=== PATIENT | male | born 1965 | race Caucasian/White ===

== ENCOUNTER 2016-10-01 18:41 | Inpatient (IN) | payer BC ==
[~2016-10-01] VITALS: Ht 182.9 cm; Wt 87.1 kg
[2016-10-01] MEDS ORDERED: MULTIVIT INFUSN,ADULT 4,VIT K 10 ML, FOLIC ACID 1 MG, THIAMINE 100 MG in IV DEXTROSE 5 ... IV ONE (19:30)
[2016-10-01] MEDS ORDERED: ACETAMINOPHEN 325 MG TABLET. PO PRN (19:45)
[2016-10-01] MEDS ORDERED: IV NORMAL SALINE 1000ML BAG 1,000 ML IV ONE (19:45)
[2016-10-01] MEDS ORDERED: ONDANSETRON PF 4 MG/2 ML VIAL. IV PRN (19:45)
[2016-10-01] MEDS ORDERED: ONDANSETRON PF 4 MG/2 ML VIAL. IV ONE (20:00)
--- NOTE | 2016-10-01 20:36 | RAD ---
Indication: Seizure with jaw dislocation. Axial imaging through the brain and facial bones was performed without contrast. Sagittal and coronal reformations were also performed. One or more of the following individualized dose reduction techniques were utilized for this examination: 1. Automated exposure control 2. Adjustment of the mA and/or kV according to patient size 3. Use of iterative reconstruction technique CT brain: The ventricles and sulci are prominent for the patient's age suggestive of cerebral atrophy. No sulcal effacement, midline shift or hemorrhage is detected. Cisterns are patent. IMPRESSION: Cerebral atrophy. No acute intracranial process is detected. CT maxillofacial: There are bilateral temporomandibular joint dislocations. The mandibular condyles are dislocated anteriorly in relation to the TMJ along the anterior surface of the bony eminence. No mandibular fracture is seen. The zygomatic arches are intact. The maxillary sinus marquez, nasal bones and orbital marquez appear intact. Paranasal sinuses are clear. IMPRESSION: Bilateral temporomandibular joint dislocations, as described. Electronically signed by: Chevy Longoria MD (10/01/2016 8:33 PM) [facility]
[2016-10-01 21:07] LABS: POTASSIUM ISTAT 3.8 mmol/L (3.5-5.0)
[2016-10-01 21:14] LABS: CALCIUM 9.4 mg/dL (8.5-10.1); CREATININE 1.2 mg/dL (0.7-1.3); GFR 63.3; POTASSIUM 3.4 mmol/L (3.5-5.1)
[2016-10-01 21:15] LABS: BASO # 0.1 x10^3/uL (0.0-0.2); BASO % 1 % (0-3); EOS % 0 % (0-3); HEMATOCRIT 48.3 % (39.0-53.0); HEMOGLOBIN 15.7 g/dL (13.0-17.5); LYMPH # 0.2 x10^3/uL (1.0-4.8); LYMPH % 2 % (24-48); MEAN CORPUSCULAR HEMOGLOBIN 32 pg (25-35); MEAN CORPUSCULAR HGB CONC 33 g/dL (31-37); MEAN CORPUSCULAR VOLUME 99 fL (79-100); MONO % 5 % (0-9); NEUT % 93 % (31-73); PLATELET COUNT 162 x10^3/uL (140-400); RED BLOOD COUNT 4.88 x10^6/uL (4.30-5.70); RED CELL DISTRIBUTION WIDTH 14.8 % (11.5-14.5); WHITE BLOOD COUNT 13.5 x10^3/uL (4.0-11.0)
[2016-10-01 21:20] LABS: ALBUMIN 4.2 g/dL (3.4-5.0); ALBUMIN/GLOBULIN RATIO 1.1 (1.0-1.7); MAGNESIUM 1.7 mg/dL (1.8-2.4); TOTAL BILIRUBIN 1.1 mg/dL (0.2-1.0); TOTAL PROTEIN 8.1 g/dL (6.4-8.2)
[2016-10-01] MEDS ORDERED: MIDAZOLAM HCL/PF 5 MG/5 ML VIAL. IV ONE ×3 (21:45→23:00)
[2016-10-01] MEDS ORDERED: KETAMINE HCL 500 MG/10 ML VIAL. IV ONE (21:45)
[2016-10-01 21:54] LABS: PLT ESTIMATE ADEQUATE (ADEQUATE)
--- NOTE | 2016-10-01 23:17 | PHYS DOC ---
Past Medical History Past Medical History: Other Additional Past Medical Histor: EPILEPSY Past Surgical History: Other Additional Past Surgical Histo: RIGHT ANKLE Alcohol Use: Heavy Drug Use: None Adult General Chief Complaint Chief Complaint: SEIZURE HPI HPI Patient is a 51 year old gentleman who presents to the ER today after having having had 2 seizures at home that were almost [id number]. Patient denies any history of hypertension diabetes liver longer kidney problems. Patient does report that he was told his liver is a visible swollen from much alcohol he drinks. Patient reports that he's had a history of seizures in the past. They usually occur when he stops drinking and sometimes occurs while he is actually drinking. Patient denies any tobacco use. Patient denies any drug use. Patient reports that he is a heavy alcohol user in general using hard alcohol. Patient reports that he's been trying to cut back his alcohol over the last 24 hours or so he's cut back to just a couple cans of beer. Patient thinks it's when he started having a seizure today. Patient's seizure was witnessed by his and children report that he had tonic-clonic activity and shortly after his first seizure he had a second seizure but they're not sure exactly how long it lasted for. Patient denies any fevers shakes chills. Patient has a chest pain or shortness of breath. Patient has any abdominal pain. Patient denies any head trauma. Patient reports that he's had some discomfort in his jaw and is having a hard time talking secondary to it. Patient denies any history of a dislocated shoulder past. Patient reports she has no primary care physician. Patient's last admission for alcohol withdrawal with a probably one month ago. Patient had multiple episodes of emesis. Patient denies any diarrhea. Review of systems: Constitutional: Denies fever or chills Eyes: Denies change in visual acuity, redness, or eye pain HENT: Denies nasal congestion or sore throat All other review systems are negative except as documented in the history of present illness portion. Physical exam: Constitutional: Well developed, well nourished, diaphoretic, anxious, HENT: Normocephalic, atraumatic, bilateral external ears normal, oropharynx moist, no oral exudates, nose normal. Patient positioned with his jaw pulled forward and unable to occlude his mouth. Patient's jaw does not align per the patient. Eyes: PERRLA, EOMI, conjunctiva normal, no discharge. Neck: Normal range of motion, no tenderness, supple, no stridor Cardiovascular: Tachycardic at a heart rate of 1:30 to 150. Lungs & Thorax: Bilateral breath sounds clear to auscultation Abdomen: Bowel sounds normal, soft, no tenderness, no masses, Skin: Warm to touch, diaphoretic Back: No tenderness, no CVA tenderness. Extremities: No tenderness, no cyanosis, no clubbing, ROM intact, no edema. Neurologic: Alert and oriented X 3, normal motor function, normal sensory function, no focal deficits noted. Patient has a resting tremor. Patient has circumferential motion his tongue. Psychologic: Affect normal, judgement normal, mood normal. Patient's alert awake and oriented 3. Appropriate comments, appropriate transfer thought, Patient's ER hospital course is significant for CT scan of the head which was unremarkable without any acute pathology. Maxillofacial CT scan revealing dislocation of his temporal mandibular joint. No other facial trauma/fractures noted on the CT scan. Patient's labs are all within normal limits. Patient's initial hemoglobin was reported at 6.9 however the remainder the patient's labs were not consistent with life so everything was repeated patient's repeat labs were all within normal limits. Cross had initially been ordered but this can BE canceled. 1. Alcohol withdrawal : Patient has had alcohol withdrawal seizures 3 today in the ED and at home. Patient had been given a couple doses of Ativan and Versed in the ED with significant improvement in his symptoms. Patient has been started on the ciwa protocol to assist him with his withdrawal type symptoms. Patient is remained tachycardic, diaphoretic. Patient will be admitted to the ICU for closer monitoring and aggressive treatment of his withdrawal symptoms. 2. Seizures was likely secondary to alcohol withdrawal. Patient's clinically and hemodynamically stable at this time except for his tachycardia, tachypnea, tremors. Patient is being treated aggressively with benzos. Patient's head CT scan revealed no acute pathology. 3. Abnormal labs . Be likely secondary to lab error. Patient's repeat labs were within normal limits. 4. Temporomandibular jaw dislocation Utilizing conscious sedation/procedural sedation the patient was given ketamine and Versed to assist with sedation to help reduce his jaw. Patient initially been given approximate 1.5 mg/kg of ketamine and 2.5 mg of Versed with minimal response. Patient was given a second dose of ketamine 1.5 mg and a second dose of 2.5 of Versed. After the second dose patient started having significant amount of ocular nystagmus and appears to have visual hallucinations that he was responding to. Patient became extremely agitated and restrained. Once patient was more sedate multiple tests were made at reducing his jaw dislocation. After a large on the patient's self reduced his own jaw. I have currently put a Kerlix resting around the patient's head and jaw to help remind him to keep his mouth closed for the next several hours. Patient is stable and is still able to open his mouth slightly in case he should have further episodes of emesis and a for airway compromise of be an issue airway still easily obtainable. Critical-care time of 35 minutes were utilizing a treatment and management of the patient's care. This included time treating his seizures, and alcohol withdrawal. This time was exclusive of any procedures. I have discussed with the patient to allow him to no toilet other healthcare providers noted that he had an adverse reaction to ketamine. & Review of Systems Review of Systems \ Current Medications Current Medications Current Medications Medications (Trade) Dose Ordered Sig/Jacqueline Start Time Stop Time Status Last Admin Dose Admin Lorazepam (Ativan) 1 mg 1X ONCE 10/01/16 19:30 10/01/16 19:31 DC 10/01/16 19:24 1 MG Multivitamins 10 ml/Folic Acid 1 mg/Thiamine HCl 100 mg/Dextrose/ Sodium Chloride 1,011.2 ml @ 1,000 mls/ hr 1X ONCE 10/01/16 19:30 10/01/16 20:30 DC 10/01/16 19:08 1,000 MLS/HR Allergies Allergies Allergies Coded Allergies Type Severity Reaction Last Updated Verified No Known Drug Allergies 07/08/16 No Current Patient Data Vital Signs Vital Signs Date Time Temp Pulse Resp B/P (MAP) Pulse Ox O2 Delivery O2 Flow Rate FiO2 10/01/16 18:49 141 24 165/104 (124) 88 Nasal Cannula 4.0 EKG EKG [] Radiology/Procedures Radiology/Procedures [] Impressions: Procedure note: Utilizing procedural sedation with ketamine and Versed the patient was sedated and jaw dislocation was reduced. Course & Med Decision Making Course & Med Decision Making Pertinent Labs and Imaging studies reviewed. (See chart for details) [] Dragon Disclaimer Dragon Disclaimer This electronic medical record was generated, in whole or in part, using a voice recognition dictation system. Departure Departure Impression: Primary Impression: Alcohol related seizure Additional Impressions: Alcohol withdrawal Temporomandibular joint dislocation Vomiting Disposition: 09 ADMITTED INPATIENT Admitting Physician: Maria L Govea Condition: GUARDED Referrals: JARED MONTEMAYOR MD (PCP) Scripts No Active Prescriptions or Reported Meds Problem Qualifiers CHRISTIAN LINDER MD Oct 01, 2016 23:17
[2016-10-01 23:30] VITALS: BP 139/83
[2016-10-01 23:45] VITALS: BP 139/95
[2016-10-02] VITALS (13 sets, daily range): BP systolic 138–177; BP diastolic 76–108
--- NOTE | 2016-10-02 01:24 | ACF ---
Admission Forms Criteria ALCOHOL AND PSYCHOACTIVE SUBSTANCE WITHDRAWAL Clinical Indications for Inpatient Care (Place ' X' for any and all applicable criteria): Ongoing inpatient care may be indicated for substance withdrawal[B][C] with ANY ONE of the following(1)(2)(3)(4)(21): [ ]I. Delirium due to alcohol or sedative[D] withdrawal is present. [ X]II. Marked signs of withdrawal are present as indicated by ANY ONE of the following(15)(22)(23) [X ]a) Heart rate greater than 120 beats per minute is present. [ ]b) Severe vomiting is present (eg, precludes maintenance of oral hydration). [ ]c) Grossly visible tremor is present. [ ]d) Profuse perspiration is present. [ ]e) Temperature greater than 101 degrees F (38.3 degrees C) is present. [ ]f) Other signs of severe withdrawal are present (eg, Altered mental status ) [ ]g) Severe withdrawal identified by standardized assessment score[A] [ ]III. Signs of withdrawal that require continued inpatient treatment as indicated by ANY ONE of the following(15)(22)(23): [ ]a) Inadequate response to pharmacotherapy (eg, benzodiazepines) [ ]b) Outpatient or lower level of care is not feasible or appropriate (eg, unavailable or inappropriate to patient condition or treatment history). [ ]IV. Withdrawal signs with high-risk indicator are present as manifested by ALL of the following[A](15)(22)(23) [ ]a) Signs of withdrawal are present as indicated by ANY ONE of the following: [ ]i. Tachycardia is present. [ ]ii. Nausea or vomiting is present. [ ]iii. Tremor is present. [ ]iv. Increased perspiration is present. [ ]v. Other signs of withdrawal are present. [ ]vi. Withdrawal identified by standardized assessment score [A] [ ]b) Elevated risk due to historical or comorbid factor is present as indicated by ANY ONE of the following: [ ]i. History of delirium due to withdrawal is present. [ ]ii. History of seizures due to withdrawal is present.[E] [ ]iii. Intrinsic seizure disorder (epilepsy) is present. [ ]iv. Patient is . [ ]v. Other significant medical history (eg, severe cardiac disease) is present, which is assessed to be at risk for destabilization due to withdrawal. [ ]V. Serious electrolyte abnormalities (eg, hyponatremia, hypokalemia, hypophosphatemia) requiring correction performable only in inpatient setting(6)(25) [ ]. Severe hypoglycemia requiring glucose infusions performable only in inpatient setting(6) [ ]VII. Drug toxicity or instability, such as Altered mental status, respiratory depression, or arrhythmias, that requires inpatient care [ ]VIII. Danger judged unmanageable at lower level of care because of ANY ONE of the following [ ]a) Danger to self [ ]b) Danger to others [ ]c) Grave disability (eg, inability to perform self-care necessary at lower level of care) The original [facility] Care Guidelines content created by [employer] [facility] has been revised. The portions of the content which have been revised are identified through the use of italic text or in bold. [facility] Guidelines has neither reviewed nor approved the modified material. All other unmodified content is copyright [facility] Care Guidelines. Please see references footnoted in the original [facility] CareGuidelines edition 2016 Admission Criteria Met?: Yes MINISTERIO FARRAR Oct 02, 2016 01:24
[2016-10-02] MEDS ORDERED: METOPROLOL TARTRATE 5 MG/5 ML VIAL. IVP PRN (02:00)
--- NOTE | 2016-10-02 06:12 | EKG ---
[facility] [address] [place] [address] Test Date: 2016-10-01 Test Time: 18:48:11 Pat Name: PASQUALE ORELLANA Department: Room: 109 1 Gender: M [employer]: : 1965 Requested By: EMILY HOUSTON Order Number: [id number] Reading MD: Measurements Intervals [place] Rate: 147 P: -137 RI: 74 QRS: -12 QRSD: 92 T: 41 QT: 302 QTc: 479 Interpretive Statements SUPRAVENTRICULAR TACHYCARDIA LEFTWARD AXIS QRS(T) CONTOUR ABNORMALITY CONSIDER ANTEROLATERAL MYOCARDIAL DAMAGE CONSIDER INFERIOR MYOCARDIAL DAMAGE RI6.01 Unconfirmed report No previous ECG available for comparison
--- NOTE | 2016-10-02 08:04 | RAD ---
Indication seizure. Suspect aspiration. A single view of the chest was obtained and is compared to an examination 08/11/2009. The heart, pulmonary vessels and mediastinum appear normal. The lungs are clear. There is no pleural fluid or pneumothorax and the visualized bony structures appear grossly intact. The stomach is somewhat distended with gas. IMPRESSION: No acute or focal process is seen in the chest
[2016-10-02 11:56] LABS: PROTHROMBIN TIME PATIENT 12.7 SEC (11.7-14.0)
--- NOTE | 2016-10-02 11:56 | HP ---
ADMIT DATE: 10/01/2016 CHIEF COMPLAINT: Seizure. HISTORY OF PRESENT ILLNESS: The patient is a pleasant 51-year-old male who drinks a liter of vodka a day. He once again had two more seizures. He has seizures in the past as well. We suspect this is probably related to his alcohol, but we are not sure ____ the patient is going to the ICU. We are consulting Dr. Marks. PAST MEDICAL HISTORY: Previous epileptic seizures and alcohol issues. ALLERGIES: None. FAMILY HISTORY: Alcoholism. SOCIAL HISTORY: He worked at the [employer] office, but apparently has lost his job now because he showed up drunk. He has got 3 DUIs according to his daughter, he is . He has 2 daughters. The states he drinks a few beers in the evening as well. It sounds like the marriage is a little bit on the rocks, not aware if the patient is taking any other drugs or smoking. MEDICATIONS: Reviewed, please refer to the MRAD. REVIEW OF SYSTEMS: GENERAL: No history of weight change, weakness or fevers. SKIN: No bruising, hair changes or rashes. EYES: No blurred, double or loss of vision. NOSE AND THROAT: No history of nosebleeds, hoarseness or sore throat. HEART: No history of palpitations, chest pain or shortness of breath on exertion. LUNGS: Denies cough, hemoptysis, wheezing or shortness of breath. GASTROINTESTINAL: Denies changes in appetite, nausea, vomiting, diarrhea or constipation. GENITOURINARY: No history of frequency, urgency, hesitancy or nocturia. NEUROLOGIC: Complains of shaking. PSYCHIATRIC: Complains of anxiety. ENDOCRINE: No history of heat or cold intolerance, polyuria or polydipsia. EXTREMITIES: Denies muscle weakness, joint pain, pain on walking or stiffness. PHYSICAL EXAMINATION: VITAL SIGNS: Temperature afebrile, pulse 105, respirations 22, blood pressure 140/96, and O2 sat 93% on 3 liters. GENERAL: He is alert, cooperative, appears to want a drink and wants to get out of here, but we are trying to encourage him to stop drinking. We are going to give him some p.r.n. benzos and vitamins. He agrees to stay for now. HEART: Distant S1, S2, tachycardic. LUNGS: Clear. ABDOMEN: Soft. EXTREMITIES: No edema. ENDOCRINE: No thyromegaly. LYMPHATICS: No cervical nodes. HEMATOPOIETIC: No bruising. LABORATORY DATA: White count 13, hemoglobin 15, and platelets 162. Electrolytes: Sodium is 141, potassium is 3.4, chloride 106, bicarbonate 20, BUN 7, creatinine is 1.2, glucose 286, AST is high at 107, ALT 81, albumin normal; surprisingly normal at 4.2. Alcohol level is less than 10. ASSESSMENT AND PLAN: Probable alcohol withdrawal seizures. The patient has been admitted to the ICU were doing seizure precautions; consult with Dr. Marks. We put him on alcohol withdrawal protocol and check an INR to see how his liver is functioning. PROGNOSIS: Guarded, we did offer the patient inpatient alcohol treatment, but he refuses. EMILY HOUSTON DO DR: KATE/carmela JOB#: [id number] / [id number]
--- NOTE | 2016-10-02 12:19 | PDOC2 ---
NEUROLOGY CONSULT Date of Admission Date of Admission DATE: 10/02/16 TIME: 12:06 Reason for Consult Reason for Consult: Alcohol related seizures Referring Physician Referring Physician: Dr. Govea Source Source: Caregiver, Chart review, Patient History of Present Illness History of Present Illness The patient is a 51-year-old right-handed male who presented with 3 alcohol related seizures today. He presented 2 months ago for the same problem and I saw him them. MRI of the brain was negative. I advised the patient to abstain from alcohol but he continues to drink at least a pint of vodka a day. He had 3 alcohol-related seizures yesterday and it was decided to admit him and consult neurology yet again. The patient is interested in stopping drinking. He plans to contact his employee assistance program today. His and daughters are with him. 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, no tobacco Current Medications Current Medications Current Medications Lorazepam (Ativan) 1 mg 1X ONCE IV Last administered on 10/01/16 19:24; Start 10/01/16 at 19:30; Stop 10/01/16 at 19:31; Status DC Multivitamins 10 ml/Folic Acid 1 mg/Thiamine HCl 100 mg/Dextrose/ Sodium Chloride 1,011.2 ml @ 1,000 mls/ hr 1X ONCE IV Last administered on 19:08; Start 10/01/16 at 19:30; Stop 10/01/16 at 20:30; Status DC Lorazepam (Ativan) 2 mg 1X ONCE IV ; Start 10/01/16 at 20:00; Stop 10/01/16 at 20:00; Status DC Ondansetron HCl (Zofran) 4 mg PRN Q8HRS PRN IV NAUSEA/VOMITING Last administered on 10/01/16 22:46; Start 10/01/16 at 19:45; Stop 10/02/16 at 19:44 Acetaminophen (Tylenol) 650 mg PRN Q4HRS PRN PO FEVER; Start 10/01/16 at 19:45 ; Stop 10/02/16 at 19:44 Lorazepam (Ativan) 1 mg PRN Q2HR PRN IV ANXIETY / AGITATION; Start 10/01/16 at 19:45; Stop 10/01/16 at 19:45; Status DC Sodium Chloride 1,000 ml @ 125 mls/hr 1X ONCE IV Last administered on 23:20; Start 10/01/16 at 19:45; Stop 10/02/16 at 03:44; Status DC Multivitamins 10 ml/Thiamine HCl 100 mg/Folic Acid 1 mg/Sodium Chloride 1,011.2 ml @ 100 mls/ hr Q24H IV ; Start 10/02/16 at 18:00 Lorazepam (Ativan) 2 mg PRN Q1HR PRN IV For CIWA 8-14; Start 10/01/16 at 19:45 Lorazepam (Ativan) 4 mg PRN Q1HR PRN IV For CIWA 15 or greater; Start 10/01/16 at 19:45 Ondansetron HCl (Zofran) 4 mg 1X ONCE IV Last administered on 10/01/16 19:58 ; Start 10/01/16 at 20:00; Stop 10/01/16 at 20:01; Status DC Ketamine HCl 500 mg 1X ONCE IV Last administered on 10/01/16 22:10; Start 12/08 at 21:45; Stop 10/01/16 at 21:46; Status DC Midazolam HCl (Versed) 5 mg 1X ONCE IV Last administered on 10/01/16 22:10; Start 10/01/16 at 21:45; Stop 10/01/16 at 21:46; Status DC Midazolam HCl (Versed) 5 mg 1X ONCE IV Last administered on 10/01/16 22:52; Start 10/01/16 at 23:00; Stop 10/01/16 at 23:01; Status DC Midazolam HCl (Versed) 2.5 mg 1X ONCE IV Last administered on 10/01/16 22:52 ; Start 10/01/16 at 23:00; Stop 10/01/16 at 23:01; Status DC Metoprolol Tartrate (Lopressor) 5 mg PRN Q4HRS PRN IVP NAUSEA; Start 10/02/16 at 02:00 Active Scripts Active No Active Prescriptions or Reported Medications Allergies Allergies: Coded Allergies: No Known Drug Allergies (Unverified , 07/08/16) ROS Review of System Patient denies fevers, chills, weight loss, dyspnea, angina, abdominal pain, change in bowels, or dysuria. 14 point review of systems is negative. Physical Exam Physical Examination PHYSICAL EXAMINATION: Vital signs: see above. General appearance is normal and in no acute distress. HEENT: Normocephalic and nontraumatic. Eyes, nose, ears, and throat are unremarkable. Neck is supple. No lymphadenopathy. No bruits are heard over the carotid artery. No crepitus. NEUROLOGICAL EXAMINATION: Mental Status Examination: Alert. Oriented to time, place, and person. Answers questions and follows commends. Pupils are equal round and reactive to light and accommodation. Funduscopic exam: No papilledema. Extraocular movements are intact. Visual field exam shows no defect on the direct confrontation. No motor or sensory deficits on the facial exam. Uvula in the midline and the soft palate elevated symmetrically. No deviation of the tongue to any direction. Gross hearing is normal. Shoulder shrug normal. Muscle tone is normal. Muscle strength is 5. Deep tendon reflexes are 2+ all around. Plantar reflex is with flexion response bilaterally. Urywdy-mg-uemg test performance is accurate. Tandem walk test is accurate. Alternative movements are accurate. Romberg test is negative. Gait is normal. Sensory exam shows no deficits. No cerebellar signs are elicited. Minimal postural tremor. Vitals VITALS Vital Signs Date Time Temp Pulse Resp B/P (MAP) Pulse Ox O2 Delivery O2 Flow Rate FiO2 10/02/16 07:00 88 19 156/97 (116) 97 Nasal Cannula 3.0 10/02/16 04:00 98.6 98.6 Labs Labs Laboratory Tests Test 10/01/16 20:59 10/01/16 21:00 Bedside Hemoglobin 17.3 g/dL (14-18) Bedside Hematocrit 51 % (37-52) Bedside Sodium 139 mmol/L (135-145) Bedside Potassium 3.8 mmol/L (3.5-5.0) Bedside Chloride 106 mmol/L (98-110) Bedside Total CO2 21 mmol/L (23-32) Anion Gap 17 mmol/L (6-14) 19 (6-14) Bedside Blood Urea Nitrogen 10 mg/dL (8-26) Bedside Creatinine 0.8 mg/dL (0.5-1.4) Glucose Level 277 mg/dL (70-99) 287 mg/dL (70-99) Bedside Ionized Calcium (Yuliet) 0.97 mmol/L (1.13-1.32) White Blood Count 13.5 x10^3/uL (4.0-11.0) Red Blood Count 4.88 x10^6/uL (4.30-5.70) Hemoglobin 15.7 g/dL (13.0-17.5) Hematocrit 48.3 % (39.0-53.0) Mean Corpuscular Volume 99 fL (79-100) Mean Corpuscular Hemoglobin 32 pg (25-35) Mean Corpuscular Hemoglobin Concent 33 g/dL (31-37) Red Cell Distribution Width 14.8 % (11.5-14.5) Platelet Count 162 x10^3/uL (140-400) Neutrophils (%) (Auto) 93 % (31-73) Lymphocytes (%) (Auto) 2 % (24-48) Monocytes (%) (Auto) 5 % (0-9) Eosinophils (%) (Auto) 0 % (0-3) Basophils (%) (Auto) 1 % (0-3) Neutrophils # (Auto) 12.6 x10^3uL (1.8-7.7) Lymphocytes # (Auto) 0.2 x10^3/uL (1.0-4.8) Monocytes # (Auto) 0.7 x10^3/uL (0.0-1.1) Eosinophils # (Auto) 0.0 x10^3/uL (0.0-0.7) Basophils # (Auto) 0.1 x10^3/uL (0.0-0.2) Segmented Neutrophils % 92 % (35-66) Band Neutrophils % 5 % (0-9) Lymphocytes % 1 % (24-48) Monocytes % 2 % (0-10) Platelet Estimate Adequate (ADEQUATE) Sodium Level 141 mmol/L (136-145) Potassium Level 3.4 mmol/L (3.5-5.1) Chloride Level 102 mmol/L (98-107) Carbon Dioxide Level 20 mmol/L (21-32) Blood Urea Nitrogen 7 mg/dL (8-26) Creatinine 1.2 mg/dL (0.7-1.3) Estimated GFR (Cockcroft-Gault) 63.3 BUN/Creatinine Ratio 6 (6-20) Calcium Level 9.4 mg/dL (8.5-10.1) Magnesium Level 1.7 mg/dL (1.8-2.4) Total Bilirubin 1.1 mg/dL (0.2-1.0) Aspartate Amino Transf (AST/SGOT) 107 U/L (15-37) Alanine Aminotransferase (ALT/SGPT) 81 U/L (16-63) Alkaline Phosphatase 73 U/L (46-116) Total Protein 8.1 g/dL (6.4-8.2) Albumin 4.2 g/dL (3.4-5.0) Albumin/Globulin Ratio 1.1 (1.0-1.7) Ethyl Alcohol Level < 10 mg/dL (0-10) Laboratory Tests Test 10/01/16 20:59 10/01/16 21:00 Bedside Hemoglobin 17.3 g/dL (14-18) Bedside Hematocrit 51 % (37-52) Bedside Sodium 139 mmol/L (135-145) Bedside Potassium 3.8 mmol/L (3.5-5.0) Bedside Chloride 106 mmol/L (98-110) Bedside Total CO2 21 mmol/L (23-32) Anion Gap 17 mmol/L (6-14) 19 (6-14) Bedside Blood Urea Nitrogen 10 mg/dL (8-26) Bedside Creatinine 0.8 mg/dL (0.5-1.4) Glucose Level 277 mg/dL (70-99) 287 mg/dL (70-99) Bedside Ionized Calcium (Yuliet) 0.97 mmol/L (1.13-1.32) White Blood Count 13.5 x10^3/uL (4.0-11.0) Red Blood Count 4.88 x10^6/uL (4.30-5.70) Hemoglobin 15.7 g/dL (13.0-17.5) Hematocrit 48.3 % (39.0-53.0) Mean Corpuscular Volume 99 fL (79-100) Mean Corpuscular Hemoglobin 32 pg (25-35) Mean Corpuscular Hemoglobin Concent 33 g/dL (31-37) Red Cell Distribution Width 14.8 % (11.5-14.5) Platelet Count 162 x10^3/uL (140-400) Neutrophils (%) (Auto) 93 % (31-73) Lymphocytes (%) (Auto) 2 % (24-48) Monocytes (%) (Auto) 5 % (0-9) Eosinophils (%) (Auto) 0 % (0-3) Basophils (%) (Auto) 1 % (0-3) Neutrophils # (Auto) 12.6 x10^3uL (1.8-7.7) Lymphocytes # (Auto) 0.2 x10^3/uL (1.0-4.8) Monocytes # (Auto) 0.7 x10^3/uL (0.0-1.1) Eosinophils # (Auto) 0.0 x10^3/uL (0.0-0.7) Basophils # (Auto) 0.1 x10^3/uL (0.0-0.2) Segmented Neutrophils % 92 % (35-66) Band Neutrophils % 5 % (0-9) Lymphocytes % 1 % (24-48) Monocytes % 2 % (0-10) Platelet Estimate Adequate (ADEQUATE) Sodium Level 141 mmol/L (136-145) Potassium Level 3.4 mmol/L (3.5-5.1) Chloride Level 102 mmol/L (98-107) Carbon Dioxide Level 20 mmol/L (21-32) Blood Urea Nitrogen 7 mg/dL (8-26) Creatinine 1.2 mg/dL (0.7-1.3) Estimated GFR (Cockcroft-Gault) 63.3 BUN/Creatinine Ratio 6 (6-20) Calcium Level 9.4 mg/dL (8.5-10.1) Magnesium Level 1.7 mg/dL (1.8-2.4) Total Bilirubin 1.1 mg/dL (0.2-1.0) Aspartate Amino Transf (AST/SGOT) 107 U/L (15-37) Alanine Aminotransferase (ALT/SGPT) 81 U/L (16-63) Alkaline Phosphatase 73 U/L (46-116) Total Protein 8.1 g/dL (6.4-8.2) Albumin 4.2 g/dL (3.4-5.0) Albumin/Globulin Ratio 1.1 (1.0-1.7) Ethyl Alcohol Level < 10 mg/dL (0-10) Images Images CT head/facial: CT brain: The ventricles and sulci are prominent for the patient's age suggestive of cerebral atrophy. No sulcal effacement, midline shift or hemorrhage is detected. Cisterns are patent. IMPRESSION: Cerebral atrophy. No acute intracranial process is detected. CT maxillofacial: There are bilateral temporomandibular joint dislocations. The mandibular condyles are dislocated anteriorly in relation to the TMJ along the anterior surface of the bony eminence. No mandibular fracture is seen. The zygomatic arches are intact. The maxillary sinus marquez, nasal bones and orbital marquez appear intact. Paranasal sinuses are clear. IMPRESSION: Bilateral temporomandibular joint dislocations, as described. Assessment/Plan Assessment/Plan Impression: Alcohol-related seizures, yet again Displaced temporal mandibular joints. Recommendations: No need for further neurological workup or treatment Discharge after dinner tonight if he remains stable Patient is going to try to stop drinking, he says. Follow-up with neurology as needed. Thank you for letting me help with the patient's care. CARMEN TAYLOR MD Oct 02, 2016 12:18 pm
[2016-10-02] MEDS ORDERED: POTASSIUM CHLORIDE 20 MEQ TABLET.ER. PO ONE ×2 (15:15→17:15)
[2016-10-02] MEDS ORDERED: DEXTROSE 50% 25 GM / 50ML DISP.SYRIN. IV PRN ×2 (15:30→17:15)
[2016-10-02] MEDS ORDERED: INSULIN ASPART 300 UNITS/3 ML INSULN.PEN SQ SCH (17:00)
[2016-10-02] MEDS ORDERED: MULTIVIT INFUSN,ADULT 4,VIT K 10 ML, THIAMINE 100 MG, FOLIC ACID 1 MG in IV NORMAL SALI... IV SCH (18:00)
[2016-10-03] MEDS ORDERED: INSULIN ASPART 300 UNITS/3 ML INSULN.PEN SQ SCH (08:00)
== END 2016-10-02 20:00 | disposition home or self-care (01) | DRG 101 ==
LOC: ER 18:41 → 1 WEST ICU 19:36 → 5 SOUTH 10-02 14:32
PROVIDERS: ADMIT Internal Medicine; ATTEND Internal Medicine
DX: G40.509 Epileptic seizures related to external causes, not intractable, without status epilepticus (principal); F10.239 Alcohol dependence with withdrawal, unspecified; S03.00XA Dislocation of jaw, unspecified side, initial encounter; Z63.72 Alcoholism and drug addiction in family
CPT/HCPCS: 21480; 36415; 70450; 70486; 71010; 80047; 80053; 82962; 83735; 85007; 85027; 85610; 87641; 93005; 96365; 96375; 96376; G0480; J1815; J2060; J2250; J2405; J3490; J7030; 99285-25

== ENCOUNTER 2017-01-19 07:36 | Inpatient (IN) | payer BC ==
[~2017-01-19] VITALS: Ht 185.4 cm; Wt 94.5 kg
--- NOTE | 2017-01-19 07:48 | PHYS DOC ---
Past Medical History Past Medical History: Other Additional Past Medical Histor: seizures with alcohol withdrawl Past Surgical History: Other Additional Past Surgical Histo: RIGHT ANKLE Alcohol Use: Heavy Drug Use: None Adult General Chief Complaint Chief Complaint: WITHDRAWL HPI HPI Patient is a 51 year old little who presents immersed with chief complaint of shakiness. The patient reports that he started to titrate down his alcohol use. The patient reports that yesterday he tried to stop cold turkey but instead he had one mixed drink and to miles. The patient reports that because he had seizures previous alcohol withdrawal he is concerned that they will recur. The patient reports vomiting this a.m. and feeling very shaky. This patient plan for IV hydration and benzodiazepine's to stabilize alcohol withdrawal diminished prescribed alcohol withdrawal seizures. Review of Systems Review of Systems Constitutional: Denies fever or chills [] Eyes: Denies change in visual acuity, redness, or eye pain [] HENT: Denies nasal congestion or sore throat [] Respiratory: Denies cough or shortness of breath [] Cardiovascular: No additional information not addressed in HPI [] GI: Denies abdominal pain, nausea, vomiting, bloody stools or diarrhea [] : Denies dysuria or hematuria [] Musculoskeletal: Denies back pain or joint pain [] Integument: Denies rash or skin lesions [] Neurologic: Denies headache, focal weakness or sensory changes [] Endocrine: Denies polyuria or polydipsia [] All other systems were reviewed and found to be within normal limits, except as documented in this note. Current Medications Current Medications Current Medications Medications (Trade) Dose Ordered Sig/Jacqueline Start Time Stop Time Status Last Admin Dose Admin Acetaminophen (Tylenol) 650 mg PRN Q4HRS PRN 01/19/17 10:15 01/20/17 10:14 Albuterol/ Ipratropium (Duoneb) 3 ml RTQID PRN 01/19/17 10:15 01/20/17 10:14 Lorazepam (Ativan) 1 mg 1X ONCE 01/19/17 10:00 01/19/17 10:01 DC 01/19/17 11:43 1 MG Multivitamins 10 ml/Thiamine HCl 100 mg/Folic Acid 1 mg/Sodium Chloride 1,011.2 ml @ 1,000.088 mls/hr 1X ONCE 01/19/17 08:00 01/19/17 09:00 DC 01/19/17 09:10 1,000.088 MLS/HR Ondansetron HCl (Zofran) 4 mg PRN Q8HRS PRN 01/19/17 10:15 01/20/17 10:14 Sodium Chloride 1,000 ml @ 1,000 mls/hr 1X ONCE 01/19/17 08:00 01/19/17 08:59 DC 01/19/17 08:02 1,000 MLS/HR Sodium Chloride (Normal Saline Flush) 10 ml QSHIFT PRN 01/19/17 08:00 Allergies Allergies Allergies Coded Allergies Type Severity Reaction Last Updated Verified No Known Drug Allergies 07/08/16 No Physical Exam Physical Exam Constitutional: Well developed, well nourished, no acute distress, non-toxic appearance. [] HENT: Normocephalic, atraumatic, bilateral external ears normal, oropharynx moist, no oral exudates, nose normal. [] Eyes: PERRLA, EOMI, conjunctiva normal, no discharge. [] Neck: Normal range of motion, no tenderness, supple, no stridor. [] Cardiovascular: Sinus Tachycardia in the 120s, no murmur [] Lungs & Thorax: Bilateral breath sounds clear to auscultation [] Abdomen: Bowel sounds normal, soft, no tenderness, no masses, no pulsatile masses. [] Skin: Warm, dry, no erythema, no rash. [] Back: No tenderness, no CVA tenderness. [] Extremities: No tenderness, no cyanosis, no clubbing, ROM intact, no edema. [] Neurologic: Alert and oriented X 3, normal motor function, normal sensory function, no focal deficits noted. [] Psychologic: Affect normal, judgement normal, mood normal. [] Current Patient Data Vital Signs Vital Signs Date Time Temp Pulse Resp B/P (MAP) Pulse Ox O2 Delivery O2 Flow Rate FiO2 01/19/17 10:16 102 20 160/108 (125) 98 Room Air 01/19/17 07:37 98.3 98.3 Lab Values Laboratory Tests Test 01/19/17 07:50 01/19/17 07:55 White Blood Count 6.0 x10^3/uL (4.0-11.0) Red Blood Count 4.13 x10^6/uL (4.30-5.70) L Hemoglobin 10.8 g/dL (13.0-17.5) L Hematocrit 35.3 % (39.0-53.0) L Mean Corpuscular Volume 85 fL (79-100) Mean Corpuscular Hemoglobin 26 pg (25-35) Mean Corpuscular Hemoglobin Concent 31 g/dL (31-37) Red Cell Distribution Width 22.6 % (11.5-14.5) H Platelet Count 197 x10^3/uL (140-400) Neutrophils (%) (Auto) 72 % (31-73) Lymphocytes (%) (Auto) 16 % (24-48) L Monocytes (%) (Auto) 12 % (0-9) H Eosinophils (%) (Auto) 0 % (0-3) Basophils (%) (Auto) 1 % (0-3) Neutrophils # (Auto) 4.3 x10^3uL (1.8-7.7) Lymphocytes # (Auto) 0.9 x10^3/uL (1.0-4.8) L Monocytes # (Auto) 0.7 x10^3/uL (0.0-1.1) Eosinophils # (Auto) 0.0 x10^3/uL (0.0-0.7) Basophils # (Auto) 0.0 x10^3/uL (0.0-0.2) Sodium Level 135 mmol/L (136-145) L Potassium Level 3.6 mmol/L (3.5-5.1) Chloride Level 100 mmol/L (98-107) Carbon Dioxide Level 22 mmol/L (21-32) Anion Gap 13 (6-14) Blood Urea Nitrogen 6 mg/dL (8-26) L Creatinine 1.0 mg/dL (0.7-1.3) Estimated GFR (Cockcroft-Gault) 78.2 BUN/Creatinine Ratio 6 (6-20) Glucose Level 129 mg/dL (70-99) H Calcium Level 9.2 mg/dL (8.5-10.1) Total Bilirubin 1.0 mg/dL (0.2-1.0) Aspartate Amino Transferase (AST) 136 U/L (15-37) H Alanine Aminotransferase (ALT) 132 U/L (16-63) H Alkaline Phosphatase 57 U/L (46-116) Total Protein 7.6 g/dL (6.4-8.2) Albumin 4.0 g/dL (3.4-5.0) Albumin/Globulin Ratio 1.1 (1.0-1.7) Lipase 286 U/L (73-393) Ethyl Alcohol Level < 10 mg/dL (0-10) Prothrombin Time 12.6 SEC (11.7-14.0) Prothrombin Time INR 1.0 (0.8-1.1) PTT 27 SEC (24-38) Laboratory Tests 01/19/17 07:50 Laboratory Tests 01/19/17 07:50 EKG EKG [] Radiology/Procedures Radiology/Procedures [] Course & Med Decision Making Course & Med Decision Making Pertinent Labs and Imaging studies reviewed. (See chart for details) Rechecked the patient at 9:22 AM and and he states it is feeling much better after the Ativan and the IV fluids. I discussed the patient that his CMP is uneventful other than his elevated liver function tests, mild hyponatremia, and mild hyperglycemia.. I further stated that his CBC had some anemia which may be related to his alcoholism. Ideation studies were within normal limits. The patient's ethanol level was less than 10. Consult Note: [facility] Marker Axle called: Dr. Govea Bur[facility] Marker Axle called at: 1st call 9:21 am 2nd call at 9:41 am [facility]le called back at: Dr. Govea came into the emergency department at 10: 03 AM I discussed the case to include the history, physical exam findings, diagnostic studies performed, laboratory studies performed, results and plan of care. A consult agreed with established plan. Time the patient was accepted for admission:10:03 am I discussed the patient's plan for admission to hospital for management of his alcohol withdrawal process and that he would avoid having any seizures. Patient verbalized understanding and agrees with the plan for him. I answered all patient's questions and went over the patient's laboratory results with him. I spent approximately 30-40 minutes working indicate struggling the patient care provider in critical care evaluation. This includes but not limited to time spent indication were dramatically related to the patient's care. I spent time at the bedside, reviewing test results, discussing the case with the staff , documenting the medical record, times with EMS discussing specific treatment issues on patient arrival. The patient meets service criteria given his high heart rate and laboratory results but I believe that his vital signs relate primarily to his alcohol withdrawal as opposed to an infectious process. In light of this, the patient was not treated for sepsis Dragon Disclaimer Dragon Disclaimer This electronic medical record was generated, in whole or in part, using a voice recognition dictation system. Departure Departure Impression: Primary Impression: Alcohol withdrawal Additional Impressions: Hyponatremia Anemia Disposition: ADMITTED INPATIENT Admitting Physician: Maria L Govea Condition: IMPROVED Referrals: JARED MONTEMAYOR MD (PCP) Scripts No Active Prescriptions or Reported Meds Problem Qualifiers GEOVANNA PLAZA MD Jan 19, 2017 07:48
[2017-01-19] MEDS ORDERED: ONDANSETRON PF 4 MG/2 ML VIAL. ONE (07:57)
[2017-01-19] MEDS ORDERED: IV NORMAL SALINE 1000ML BAG 1,000 ML IV ONE (08:00)
[2017-01-19] MEDS ORDERED: 0.9 % SODIUM CHLORIDE 10 ML DISP.SYRIN. IV PRN (08:00)
[2017-01-19] MEDS ORDERED: MULTIVIT INFUSN,ADULT 4,VIT K 10 ML, THIAMINE 100 MG, FOLIC ACID 1 MG in IV NORMAL SALI... IV ONE (08:00)
[2017-01-19 08:13] LABS: CALCIUM 9.2 mg/dL (8.5-10.1); GFR 78.2; POTASSIUM 3.6 mmol/L (3.5-5.1)
[2017-01-19 08:14] LABS: BASO % 1 % (0-3); EOS % 0 % (0-3); HEMATOCRIT 35.3 % (39.0-53.0); HEMOGLOBIN 10.8 g/dL (13.0-17.5); LYMPH # 0.9 x10^3/uL (1.0-4.8); LYMPH % 16 % (24-48); MEAN CORPUSCULAR HEMOGLOBIN 26 pg (25-35); MEAN CORPUSCULAR HGB CONC 31 g/dL (31-37); MEAN CORPUSCULAR VOLUME 85 fL (79-100); MONO % 12 % (0-9); NEUT % 72 % (31-73); PLATELET COUNT 197 x10^3/uL (140-400); RED BLOOD COUNT 4.13 x10^6/uL (4.30-5.70); RED CELL DISTRIBUTION WIDTH 22.6 % (11.5-14.5)
[2017-01-19 08:20] LABS: ALBUMIN/GLOBULIN RATIO 1.1 (1.0-1.7); TOTAL PROTEIN 7.6 g/dL (6.4-8.2)
[2017-01-19 08:34] LABS: PROTHROMBIN TIME PATIENT 12.6 SEC (11.7-14.0)
[2017-01-19] MEDS ORDERED: ONDANSETRON PF 4 MG/2 ML VIAL. IV ONE (10:00)
[2017-01-19] MEDS ORDERED: IPRATRPIUM/ALBUTEROL 0.5/2.5MG 3 ML NEBU. NEB PRN (10:15)
[2017-01-19] MEDS ORDERED: ONDANSETRON PF 4 MG/2 ML VIAL. IV PRN ×2 (10:15→10:45)
[2017-01-19] MEDS ORDERED: ACETAMINOPHEN 325 MG TABLET. PO PRN (10:15)
[2017-01-19 11:44] VITALS: BP 148/98
[2017-01-19 11:45] VITALS: BP 148/98
[2017-01-19] MEDS ORDERED: hydrOXYzine PAMOATE 25 MG CAPSULE PO PRN (12:15)
--- NOTE | 2017-01-19 12:52 | HP ---
ADMIT DATE: 01/19/2017 CHIEF COMPLAINT: Alcohol withdrawal. HISTORY OF PRESENT ILLNESS: The patient is a pleasant 51-year-old male who works at the [employer]. His job is in jeopardy. He is apparently undergoing arbitration right now. He is supposed to pass his drug and alcohol screens. He apparently has been drinking, but has to quit in the past couple of days because he is trying to pass his urine test. Now, he is withdrawing. His made him drink a couple of beers and a mixed drink last night because she was afraid he was going to have seizures. He presents today with more shaking and basically severe alcohol withdrawal. We are going to admit the patient, give him alcohol withdrawal protocol. PAST MEDICAL HISTORY: Alcoholism, seizures, alcohol withdrawal. PAST SURGICAL HISTORY: Right ankle surgery. ALLERGIES: None. FAMILY HISTORY: Hypertension. 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 He does not take drugs. He does drink. No tobacco. He is . His is also having problems with alcohol. They have 2 teenagers. MEDICATIONS: Reviewed, please refer to the MRAD. REVIEW OF SYSTEMS: GENERAL: No history of weight change, weakness or fevers. SKIN: No bruising, hair changes or rashes. EYES: No blurred, double or loss of vision. NOSE AND THROAT: No history of nosebleeds, hoarseness or sore throat. HEART: No history of palpitations, chest pain or shortness of breath on exertion. LUNGS: Denies cough, hemoptysis, wheezing or shortness of breath. GASTROINTESTINAL: Denies changes in appetite, nausea, vomiting, diarrhea or constipation. GENITOURINARY: No history of frequency, urgency, hesitancy or nocturia. NEUROLOGIC: He complains of shaking. PSYCHIATRIC: No history of panic, anxiety or depression. ENDOCRINE: No history of heat or cold intolerance, polyuria or polydipsia. EXTREMITIES: Denies muscle weakness, joint pain, pain on walking or stiffness. PHYSICAL EXAMINATION: VITAL SIGNS: Temperature afebrile, pulse 92, respirations 16, blood pressure 148/89. GENERAL: He is alert, cooperative. HEART: Normal S1, S2. LUNGS: Clear. ABDOMEN: Soft. EXTREMITIES: No edema. SKIN: No rashes. ENDOCRINE: No thyromegaly. LYMPHATICS: No cervical nodes. HEMATOPOIETIC: No bruising. NEUROLOGICAL: He is shaking, has a flat affect. LABORATORY DATA: White count 6, hemoglobin 10.8, platelets 197. Electrolytes: Sodium 135, potassium 3.6, chloride 100, bicarbonate 22, BUN 6, creatinine 1, glucose 129, AST and ALT are high 136 and 132 respectively. Drug screen negative for alcohol. INR 1. ASSESSMENT AND PLAN: Alcohol withdrawal. The patient has been admitted. We will have social worker psychiatric set up for possible alcohol rehabilitation. For now, we are going to do alcohol withdrawal protocol including benzos and banana bags, p.r.n. Vistaril for itching. Continue home medicines. PROGNOSIS: Guarded. I told him to please quit drinking. EMILY HOUSTON DO DR: KATE/carmela JOB#: [id number] / [id number]
[2017-01-19] MEDS: METOPROLOL TART IMMED RELEASE 25 MG TABLET. PO SCH ×2 (12:55→21:28)
[2017-01-19 14:49] VITALS: BP 133/99
[2017-01-19 19:47] VITALS: BP 140/101
[2017-01-19] MEDS: cloNIDine HCL 0.1 MG TABLET PO PRN (23:09)
[2017-01-19 23:29] VITALS: BP 153/106
[2017-01-20 03:16] VITALS: BP 149/111
[2017-01-20 07:10] VITALS: BP 183/96
[2017-01-20] MEDS: cloNIDine HCL 0.1 MG TABLET PO PRN (08:18)
[2017-01-20] MEDS: METOPROLOL TART IMMED RELEASE 25 MG TABLET. PO SCH (08:18)
[2017-01-20 10:35] VITALS: BP 113/82
[2017-01-20] MEDS ORDERED: LORA0.5T96 PO (13:32)
--- NOTE | 2017-01-20 13:37 | PDOC3 ---
Discharge Summary Visit Information Date of Admission: Jan 19, 2017 Date of Discharge: Jan 20, 2017 Admitting Diagnosis: alcohol withdrawl Final Diagnosis Alcohol withdrawal. Hx EtOH seizure plan alcohol rehabilitation. Problems Medical Problems: (1) Anemia Status: Acute (2) Hyponatremia Status: Acute Brief Hospital Course Allergies Allergies Coded Allergies Type Severity Reaction Last Updated Verified No Known Drug Allergies 07/08/16 No Vital Signs Vital Signs Date Time Temp Pulse Resp B/P (MAP) Pulse Ox O2 Delivery O2 Flow Rate FiO2 01/20/17 10:35 98.3 78 18 113/82 (92) 96 Room Air 98.3 Lab Results Laboratory Tests Test 01/19/17 07:50 01/19/17 07:55 White Blood Count 6.0 x10^3/uL (4.0-11.0) Red Blood Count 4.13 x10^6/uL (4.30-5.70) Hemoglobin 10.8 g/dL (13.0-17.5) Hematocrit 35.3 % (39.0-53.0) Mean Corpuscular Volume 85 fL (79-100) Mean Corpuscular Hemoglobin 26 pg (25-35) Mean Corpuscular Hemoglobin Concent 31 g/dL (31-37) Red Cell Distribution Width 22.6 % (11.5-14.5) Platelet Count 197 x10^3/uL (140-400) Neutrophils (%) (Auto) 72 % (31-73) Lymphocytes (%) (Auto) 16 % (24-48) Monocytes (%) (Auto) 12 % (0-9) Eosinophils (%) (Auto) 0 % (0-3) Basophils (%) (Auto) 1 % (0-3) Neutrophils # (Auto) 4.3 x10^3uL (1.8-7.7) Lymphocytes # (Auto) 0.9 x10^3/uL (1.0-4.8) Monocytes # (Auto) 0.7 x10^3/uL (0.0-1.1) Eosinophils # (Auto) 0.0 x10^3/uL (0.0-0.7) Basophils # (Auto) 0.0 x10^3/uL (0.0-0.2) Sodium Level 135 mmol/L (136-145) Potassium Level 3.6 mmol/L (3.5-5.1) Chloride Level 100 mmol/L (98-107) Carbon Dioxide Level 22 mmol/L (21-32) Anion Gap 13 (6-14) Blood Urea Nitrogen 6 mg/dL (8-26) Creatinine 1.0 mg/dL (0.7-1.3) Estimated GFR (Cockcroft-Gault) 78.2 BUN/Creatinine Ratio 6 (6-20) Glucose Level 129 mg/dL (70-99) Calcium Level 9.2 mg/dL (8.5-10.1) Total Bilirubin 1.0 mg/dL (0.2-1.0) Aspartate Amino Transf (AST/SGOT) 136 U/L (15-37) Alanine Aminotransferase (ALT/SGPT) 132 U/L (16-63) Alkaline Phosphatase 57 U/L (46-116) Total Protein 7.6 g/dL (6.4-8.2) Albumin 4.0 g/dL (3.4-5.0) Albumin/Globulin Ratio 1.1 (1.0-1.7) Lipase 286 U/L (73-393) Ethyl Alcohol Level < 10 mg/dL (0-10) Prothrombin Time 12.6 SEC (11.7-14.0) Prothromb Time International Ratio 1.0 (0.8-1.1) Activated Partial Thromboplast Time 27 SEC (24-38) Brief Hospital Course Mr. Lozada is a 51 old male, admit with tremor agitation, tachycardia, EtOH withdrawl. IV fluid, benzo, metoprolol, HR better thiamine and B complex MVI given before DC Discharge Information Condition at Discharge: Improved Follow Up: Weeks Disposition/Orders: D/C to Home Scheduled PRN Lorazepam (Ativan), 0.5 MG PO BID PRN for ANXIETY / AGITATION Patient Instructions Patient Instructions > 30 min face to face tried to plan a better Al aburto for rehab HALEY SOTO MD Jan 20, 2017 13:37
[2017-01-20] MEDS ORDERED: VITAMIN B12,B9,B6 COMPLEX 1 TABLET. PO SCH (13:45)
[2017-01-20] MEDS ORDERED: THIAMINE 100 MG TABLET. PO SCH (13:45)
== END 2017-01-20 13:44 | disposition home or self-care (01) | DRG 897 ==
LOC: ER 07:36 → 6 SOUTH 10:26
PROVIDERS: ADMIT Internal Medicine; ATTEND Internal Medicine
DX: F10.239 Alcohol dependence with withdrawal, unspecified (principal); R56.9 Unspecified convulsions; E87.1 Hypo-osmolality and hyponatremia; D64.9 Anemia, unspecified; F41.9 Anxiety disorder, unspecified; Z82.49 Family history of ischemic heart disease and other diseases of the circulatory system
CPT/HCPCS: 36415; 80053; 83690; 85025; 85610; 85730; 96361; 96365; 96375; 96376; G0480; J2060; J2405; J7030; 99291-25

== ENCOUNTER 2017-08-02 09:02 | Emergency (ER) | payer BC ==
[2017-08-02 09:41] LABS: ADD MAN DIFF? NO
[2017-08-02 09:43] LABS: AGAP ISTAT 18 mmol/L (6-14); BUN ISTAT 8 mg/dL (8-26); CHLORIDE ISTAT 105 mmol/L (98-110); CREATININE ISTAT 0.7 mg/dL (0.5-1.4); GLUCOSE ISTAT 114 mg/dL (70-99); HEMATOCRIT ISTAT 36 % (37-52); HEMOGLOBIN ISTAT 12.2 g/dL (14-18); ION CA ISTAT 1.14 mmol/L (1.13-1.32); POTASSIUM ISTAT 3.9 mmol/L (3.5-5.0); SODIUM ISTAT 140 mmol/L (135-145); TOT CO2 ISTAT 23 mmol/L (23-32)
[2017-08-02] MEDS: ONDANSETRON ODT 4 MG TAB.RAPDIS. PO (09:45)
[2017-08-02] MEDS: LORazepam 1 MG TABLET PO (09:46)
[2017-08-02 09:51] LABS: BASO % 1 % (0-3); EOS % 0 % (0-3); HEMATOCRIT 31.8 % (39.0-53.0); HEMOGLOBIN 9.4 g/dL (13.0-17.5); LYMPH # 1.8 x10^3/uL (1.0-4.8); LYMPH % 33 % (24-48); MEAN CORPUSCULAR HEMOGLOBIN 20 pg (25-35); MEAN CORPUSCULAR HGB CONC 30 g/dL (31-37); MEAN CORPUSCULAR VOLUME 66 fL (79-100); MONO # 0.6 x10^3/uL (0.0-1.1); MONO % 11 % (0-9); NEUT % 55 % (31-73); PLATELET COUNT 231 x10^3/uL (140-400); RED BLOOD COUNT 4.84 x10^6/uL (4.30-5.70); RED CELL DISTRIBUTION WIDTH 25.4 % (11.5-14.5); WHITE BLOOD COUNT 5.5 x10^3/uL (4.0-11.0)
[2017-08-02 10:00] LABS: ANION GAP 13 (6-14); BLOOD UREA NITROGEN 10 mg/dL (8-26); BUN/CREATININE RATIO 14 (6-20); CALCIUM 8.9 mg/dL (8.5-10.1); CARBON DIOXIDE 23 mmol/L (21-32); CHLORIDE 102 mmol/L (98-107); CREATININE 0.7 mg/dL (0.7-1.3); GFR 117.5; GLUCOSE 114 mg/dL (70-99); POTASSIUM 4.3 mmol/L (3.5-5.1); SODIUM 138 mmol/L (136-145)
[2017-08-02 10:04] LABS: TROPONINI < 0.017 ng/mL (0.000-0.055)
[2017-08-02 10:05] LABS: ALBUMIN 3.4 g/dL (3.4-5.0); ALBUMIN/GLOBULIN RATIO 0.8 (1.0-1.7); TOTAL BILIRUBIN 0.4 mg/dL (0.2-1.0); TOTAL PROTEIN 7.6 g/dL (6.4-8.2)
[2017-08-02 10:06] LABS: ALK PHOS 56 U/L (46-116); ALT (SGPT) 47 U/L (16-63); AMYLASE 38 U/L (25-115); AST (SGOT) 51 U/L (15-37)
[2017-08-02 10:09] LABS: CKMB INDEX 1.4 % (0-4); CREATINE KINASE 146 U/L (39-308)
[2017-08-02 11:32] LABS: BARBITURATES NEG (NEG); BENZODIAZEPINES NEG (NEG); CANNABINOIDS NEG (NEG); COCAINE NEG (NEG); METHADONE NEG (NEG); OPIATES NEG (NEG); PHENCYCLIDINE NEG (NEG)
[2017-08-02 11:33] LABS: AMPHETAMINE/METHAMPHETAMINE NEG (NEG); ETHANOL, URINE POS (NEG)
[2017-08-02 13:04] LABS: ANISOCYTOSIS MARKED; HYPOCHROMIA MARKED; MICROCYTOSIS MARKED; OVALOCYTES FEW; PLT ESTIMATE ADEQUATE (ADEQUATE); POLYCHROMASIA SLIGHT; TEAR DROP CELLS OCC
== END 2017-08-02 11:28 | disposition home or self-care (01) ==
LOC: ER 09:02
DX: F10.239 Alcohol dependence with withdrawal, unspecified (principal)
CPT/HCPCS: 36415; 80047; 80053; 80307; 82150; 82553; 84484; 85025; 93005; 99285-25; Q0162

== ENCOUNTER 2017-08-29 00:17 | Emergency (ER) | payer BC ==
[2017-08-29] MEDS ORDERED: HALOPERIDOL LACTATE 5 MG/ML VIAL. IM (01:00)
[2017-08-29 01:19] LABS: BASO # 0.1 x10^3/uL (0.0-0.2); BASO % 1 % (0-3); EOS % 0 % (0-3); HEMATOCRIT 32.4 % (39.0-53.0); HEMOGLOBIN 9.8 g/dL (13.0-17.5); LYMPH # 3.7 x10^3/uL (1.0-4.8); LYMPH % 64 % (24-48); MEAN CORPUSCULAR HEMOGLOBIN 20 pg (25-35); MEAN CORPUSCULAR HGB CONC 30 g/dL (31-37); MEAN CORPUSCULAR VOLUME 66 fL (79-100); MONO # 0.4 x10^3/uL (0.0-1.1); MONO % 6 % (0-9); NEUT # 1.6 x10^3uL (1.8-7.7); NEUT % 28 % (31-73); PLATELET COUNT 173 x10^3/uL (140-400); RED BLOOD COUNT 4.92 x10^6/uL (4.30-5.70); WHITE BLOOD COUNT 5.7 x10^3/uL (4.0-11.0)
[2017-08-29] MEDS: MIDAZOLAM HCL/PF 5 MG/5 ML VIAL. IM (01:19)
[2017-08-29 01:22] LABS: ADD MAN DIFF? YES
[2017-08-29 01:29] LABS: ANION GAP 15 (6-14); BLOOD UREA NITROGEN 10 mg/dL (8-26); BUN/CREATININE RATIO 10 (6-20); CALCIUM 8.3 mg/dL (8.5-10.1); CARBON DIOXIDE 21 mmol/L (21-32); CHLORIDE 106 mmol/L (98-107); GFR 77.9; GLUCOSE 115 mg/dL (70-99); POTASSIUM 3.6 mmol/L (3.5-5.1); SODIUM 142 mmol/L (136-145)
[2017-08-29 01:38] LABS: TOTAL PROTEIN 7.7 g/dL (6.4-8.2)
[2017-08-29 01:38] LABS: ETHANOL 499 mg/dL (0-10)
[2017-08-29 01:39] LABS: ALBUMIN 3.8 g/dL (3.4-5.0); ALK PHOS 57 U/L (46-116); ALT (SGPT) 45 U/L (16-63); AST (SGOT) 48 U/L (15-37); TOTAL BILIRUBIN 0.4 mg/dL (0.2-1.0)
[2017-08-29 02:52] LABS: % BANDS 1 % (0-9); % BASOS 2 % (0-3); % LYMPHS 43 % (24-48); % MONOS 5 % (0-10); % SEGS 49 % (35-66); ANISOCYTOSIS MOD; HYPOCHROMIA MARKED; MICROCYTOSIS MARKED; OVALOCYTES FEW; PLT ESTIMATE ADEQUATE (ADEQUATE); POIKILOCYTOSIS SLIGHT; SMUDGE CELLS PRESENT
== END 2017-08-29 02:56 | disposition home or self-care (01) ==
LOC: ER 00:17
DX: F10.129 Alcohol abuse with intoxication, unspecified (principal)
CPT/HCPCS: 36415; 80053; 85007; 85025; 96372; 99284; G0480; J2250

== ENCOUNTER 2018-10-16 10:10 | Emergency (ER) | payer BC ==
[~2018-10-16] VITALS: Ht 175.3 cm; Wt 90.7 kg
[~2018-10-16 10:10] MED LIST: LORA0.5T96 PO
[2018-10-16] MEDS ORDERED: IV NORMAL SALINE 1000ML BAG 1,000 ML IV SCH (10:40)
[2018-10-16] MEDS ORDERED: FAMOTIDINE 20 MG TABLET. PO ONE (10:45)
[2018-10-16] MEDS ORDERED: MULTIVIT INFUSN,ADULT 4,VIT K 10 ML, THIAMINE INJ 100 MG, FOLIC ACID INJ 1 MG in IV NOR... IV ONE (10:45)
[2018-10-16] MEDS ORDERED: ONDANSETRON PF 4 MG/2 ML VIAL. IV ONE (11:00)
[2018-10-16] MEDS ORDERED: FAMOTIDINE 20 MG/2 ML VIAL IVP ONE (11:00)
[2018-10-16] MEDS ORDERED: FAMOTIDINE 20 MG/2 ML VIAL ONE (11:01)
[2018-10-16 11:03] LABS: BASO # 0.1 x10^3/uL (0.0-0.2); BASO % 1 % (0-3); EOS % 0 % (0-3); HEMATOCRIT 35.5 % (39.0-53.0); HEMOGLOBIN 10.5 g/dL (13.0-17.5); LYMPH # 1.4 x10^3/uL (1.0-4.8); LYMPH % 16 % (24-48); MEAN CORPUSCULAR HEMOGLOBIN 20 pg (25-35); MEAN CORPUSCULAR HGB CONC 30 g/dL (31-37); MEAN CORPUSCULAR VOLUME 67 fL (79-100); MONO # 0.8 x10^3/uL (0.0-1.1); MONO % 9 % (0-9); NEUT # 6.5 x10^3/uL (1.8-7.7); NEUT % 74 % (31-73); PLATELET COUNT 271 x10^3/uL (140-400); RED BLOOD COUNT 5.33 x10^6/uL (4.30-5.70); RED CELL DISTRIBUTION WIDTH 23.5 % (11.5-14.5); WHITE BLOOD COUNT 8.8 x10^3/uL (4.0-11.0)
--- NOTE | 2018-10-16 11:05 | PHYS DOC ---
Past Medical History Past Medical History: Other Additional Past Medical Histor: seizures with alcohol withdrawl,ETOH ABUSE Past Surgical History: Other Additional Past Surgical Histo: L ANKLE Alcohol Use: Heavy Drug Use: None Adult General Chief Complaint Chief Complaint: WITHDRAWL HPI HPI Patient is a 53 year old male who presents with complaining of alcohol withdrawal. Patient states he usually drinks 1 L of vodka and his last shots of vodka last night. Patient states he feels shaky and lightheadedness and dizzy like his previous episodes of alcohol withdrawal. Patient had history of seizure with alcohol withdrawal but denies seizures today. Patient denies suicidal or homicidal ideation, chest pain, shortness of breath, vomiting and diarrhea. Patient complaining of chronic right side of abdominal pain. Review of Systems Review of Systems Constitutional: Denies fever or chills [] Eyes: Denies change in visual acuity, redness, or eye pain [] HENT: Denies nasal congestion or sore throat [] Respiratory: Denies cough or shortness of breath [] Cardiovascular: No additional information not addressed in HPI [] GI: Reports abdominal pain, nausea, denies vomiting, bloody stools or diarrhea [] : Denies dysuria or hematuria [] Musculoskeletal: Denies back pain or joint pain [] Integument: Denies rash or skin lesions [] Neurologic: Denies headache, focal weakness or sensory changes [] Endocrine: Denies polyuria or polydipsia [] All other systems were reviewed and found to be within normal limits, except as documented in this note. Current Medications Current Medications Current Medications Medications (Trade) Dose Ordered Sig/Jacqueline Start Time Stop Time Status Last Admin Dose Admin Famotidine (Pepcid Vial) 20 mg STK-MED ONCE 10/16/18 11:01 10/16/18 11:01 DC Famotidine (Pepcid) 20 mg 1X ONCE 10/16/18 10:45 10/16/18 10:57 DC Lorazepam (Ativan Inj) 2 mg 1X ONCE 10/16/18 11:00 10/16/18 11:01 DC 10/16/18 11:09 2 MG Multivitamins 10 ml/Thiamine HCl 100 mg/Folic Acid 1 mg/Sodium Chloride 1,011.2 ml @ 1,000 mls/ hr 1X ONCE 10/16/18 10:45 10/16/18 11:45 DC 10/16/18 11:54 1,000 MLS/HR Ondansetron HCl (Zofran) 4 mg 1X ONCE 10/16/18 11:00 10/16/18 11:01 DC 10/16/18 11:09 4 MG Sodium Chloride 1,000 ml @ 1,000 mls/hr Q1H 10/16/18 10:40 10/16/18 11:39 DC 10/16/18 10:58 1,000 MLS/HR Allergies Allergies Allergies Coded Allergies Type Severity Reaction Last Updated Verified No Known Drug Allergies 07/08/16 No Physical Exam Physical Exam Constitutional: Well developed, well nourished, mild distress, non-toxic appearance, shaky. [] HENT: Normocephalic, atraumatic. Eyes: PERRLA, EOMI, conjunctiva normal, no discharge. [] Neck: Normal range of motion, no tenderness, supple, no stridor. [] Cardiovascular: Tachycardia, no murmur [] Lungs & Thorax: Bilateral breath sounds clear to auscultation [] Abdomen: Bowel sounds normal, soft, no tenderness, no masses, no pulsatile masses. [] Skin: Warm, dry, no erythema, no rash. [] Back: No tenderness, no CVA tenderness. [] Extremities: No tenderness, no cyanosis, no clubbing, ROM intact, no edema. [] Neurologic: Alert and oriented X 3, no focal deficits noted. [] Psychologic: Affect anxious, judgement normal, mood normal. [] Current Patient Data Vital Signs Vital Signs Date Time Temp Pulse Resp B/P (MAP) Pulse Ox O2 Delivery O2 Flow Rate FiO2 10/16/18 10:30 99.2 107 21 152/106 (121) 96 Room Air 99.2 Lab Values Laboratory Tests Test 10/16/18 10:55 White Blood Count 8.8 x10^3/uL (4.0-11.0) Red Blood Count 5.33 x10^6/uL (4.30-5.70) Hemoglobin 10.5 g/dL (13.0-17.5) L Hematocrit 35.5 % (39.0-53.0) L Mean Corpuscular Volume 67 fL (79-100) L Mean Corpuscular Hemoglobin 20 pg (25-35) L Mean Corpuscular Hemoglobin Concent 30 g/dL (31-37) L Red Cell Distribution Width 23.5 % (11.5-14.5) H Platelet Count 271 x10^3/uL (140-400) Neutrophils (%) (Auto) 74 % (31-73) H Lymphocytes (%) (Auto) 16 % (24-48) L Monocytes (%) (Auto) 9 % (0-9) Eosinophils (%) (Auto) 0 % (0-3) Basophils (%) (Auto) 1 % (0-3) Neutrophils # (Auto) 6.5 x10^3/uL (1.8-7.7) Lymphocytes # (Auto) 1.4 x10^3/uL (1.0-4.8) Monocytes # (Auto) 0.8 x10^3/uL (0.0-1.1) Eosinophils # (Auto) 0.0 x10^3/uL (0.0-0.7) Basophils # (Auto) 0.1 x10^3/uL (0.0-0.2) Platelet Estimate Pending Prothrombin Time 12.7 SEC (11.7-14.0) Prothrombin Time INR 1.0 (0.8-1.1) Activated Partial Thromboplast Time 24 SEC (24-38) Sodium Level 137 mmol/L (136-145) Potassium Level 3.7 mmol/L (3.5-5.1) Chloride Level 100 mmol/L (98-107) Carbon Dioxide Level 25 mmol/L (21-32) Anion Gap 12 (6-14) Blood Urea Nitrogen 6 mg/dL (8-26) L Creatinine 1.1 mg/dL (0.7-1.3) Estimated GFR (Cockcroft-Gault) 69.5 Glucose Level 140 mg/dL (70-99) H Calcium Level 9.1 mg/dL (8.5-10.1) Magnesium Level 1.6 mg/dL (1.8-2.4) L Total Bilirubin 1.6 mg/dL (0.2-1.0) H Direct Bilirubin 0.5 mg/dL (0.0-0.2) H Aspartate Amino Transferase (AST) 93 U/L (15-37) H Alanine Aminotransferase (ALT) 64 U/L (16-63) H Alkaline Phosphatase 96 U/L (46-116) Total Protein 7.9 g/dL (6.4-8.2) Albumin 3.6 g/dL (3.4-5.0) Ethyl Alcohol Level < 10 mg/dL (0-10) Laboratory Tests 10/16/18 10:55 Laboratory Tests 10/16/18 10:55 EKG EKG EKG interpreted by me. EKG at 1058 showed sinus rhythm at rate of 93, left fourth axis, LVH, prolonged QT at 384, no acute ST and T-wave elevation. Radiology/Procedures Radiology/Procedures [] Course & Med Decision Making Course & Med Decision Making Pertinent Labs and Imaging studies reviewed. (See chart for details) Evaluation of patient in ER showed 53-year-old male patient with history of alcohol abuse presented to ER with complaining of alcohol withdrawal and shaking and nausea. Patient had mild elevation of blood pressure and tachycardia and tremor that improved with IV fluids, banana bag and Ativan. Blood alcohol was less than 10. Patient requiring admission for further evaluation and treatment. Discussed with Dr. Nolasco who is in agreement with admission. Discussed findings and plan with patient and family, who acknowledge understanding and agreement. Dragon Disclaimer Dragon Disclaimer This electronic medical record was generated, in whole or in part, using a voice recognition dictation system. Departure Departure Impression: Primary Impression: Alcohol withdrawal Additional Impressions: Tachycardia Hypomagnesemia Anemia Elevated liver function tests Abdominal pain Disposition: ADMITTED INPATIENT (1225) Admitting Physician: DOLORES (Dr Nolasco accepted admission at 1225) Condition: GUARDED Referrals: JARED MONTEMAYOR MD (PCP) Problem Qualifiers Primary Impression: Alcohol withdrawal Complication of substance-induced condition: with delirium Qualified Codes: F10.231 - Alcohol dependence with withdrawal delirium Additional Impressions: Anemia Anemia type: unspecified type Qualified Codes: D64.9 - Anemia, unspecified Abdominal pain Abdominal location: unspecified location Qualified Codes: R10.9 - Unspecified abdominal pain CORWIN LLANES MD Oct 16, 2018 11:05
[2018-10-16 11:13] LABS: PROTHROMBIN TIME PATIENT 12.7 SEC (11.7-14.0)
[2018-10-16 11:27] LABS: ALBUMIN 3.6 g/dL (3.4-5.0); CALCIUM 9.1 mg/dL (8.5-10.1); CREATININE 1.1 mg/dL (0.7-1.3); DIRECT BILIRUBIN 0.5 mg/dL (0.0-0.2); GFR 69.5; MAGNESIUM 1.6 mg/dL (1.8-2.4); TOTAL BILIRUBIN 1.6 mg/dL (0.2-1.0); TOTAL PROTEIN 7.9 g/dL (6.4-8.2)
[2018-10-16 11:31] LABS: POTASSIUM 3.7 mmol/L (3.5-5.1)
[2018-10-16] MEDS ORDERED: KETOROLAC 30 MG/ML VIAL. IV ONE (12:15)
[2018-10-16] MEDS ORDERED: MAGNESIUM SULFATE 2GM 50 ML IV ONE ×2 (12:15→13:00)
[2018-10-16 12:32] VITALS: BP 148/84
[2018-10-16] MEDS ORDERED: HALOPERIDOL LACTATE 5 MG/ML VIAL. IVP PRN (13:00)
[2018-10-16] MEDS ORDERED: cloNIDine HCL 0.1 MG TABLET PO PRN (13:00)
[2018-10-16] MEDS ORDERED: diphenhydrAMINE 50 MG/ML VIAL IVP PRN (13:00)
[2018-10-16] MEDS ORDERED: LORazepam 1 MG TABLET PO PRN (13:00)
--- NOTE | 2018-10-16 13:02 | PDOC1 ---
History and Physical Date of Admission Date of Admission DATE: 10/16/18 TIME: 13:01 Identification/Chief Complaint Chief Complaint Shaking Source Source: Patient History of Present Illness History of Present Illness Mr Lozada is a 53yo M w/ PMHx seizures with alcohol withdrawal, ETOH ABUSE who presents with complaining of alcohol withdrawal. Patient states he usually drinks 1 L of vodka and his last shots of vodka last night. Patient states he feels shaky and lightheadedness and dizzy like his previous episodes of alcohol withdrawal. He also has nausea, but is asking for food. Patient denies suicidal or homicidal ideation, chest pain, shortness of breath, vomiting and diarrhea. Patient complaining of chronic right side of abdominal pain. In ED noted with Hb 10.5 and MCV of 67. Mag 1.6, Bili 1.6. AST 93, ALT 64 and ETOH level 0. EKG was NSR with no ST segment changes, QTc of 384, LVH by criteria (sokolow) I was called for admission. He is upset, agitated, asking to leave after magnesium infusion initiated. Past Medical History Cardiovascular: No pertinent hx Pulmonary: No pertinent hx GI: No pertinent hx Heme/Onc: No pertinent hx Hepatobiliary: No pertinent hx Psych: No pertinent hx Rheumatologic: No pertinent hx Infectious disease: No pertinent hx Renal/: No pertinent hx Endocrine: No pertinent hx Past Surgical History Past Surgical History: Other Family History Family History: Other Social History Smoke: 1 pack per day ALCOHOL: heavy Drugs: None Current Problem List Problem List Problems Medical Problems: (1) Abdominal pain Status: Acute (2) Anemia Status: Acute (3) Elevated liver function tests Status: Acute (4) Hypomagnesemia Status: Acute Current Medications Current Medications Current Medications Sodium Chloride 1,000 ml @ 1,000 mls/hr Q1H IV Last administered on 10/16/18at 10:58; Start 10/16/18 at 10:40; Stop 10/16/18 at 11:39; Status DC Famotidine (Pepcid) 20 mg 1X ONCE PO ; Start 10/16/18 at 10:45; Stop 10/16/18 at 10:57; Status DC Multivitamins 10 ml/Thiamine HCl 100 mg/Folic Acid 1 mg/Sodium Chloride 1,011.2 ml @ 1,000 mls/ hr 1X ONCE IV Last administered on 10/16/18at 11:54; Start 10/16/18 at 10:45; Stop 10/16/18 at 11:45; Status DC Ondansetron HCl (Zofran) 4 mg 1X ONCE IV Last administered on 10/16/18at 11:09; Start 10/16/18 at 11:00; Stop 10/16/18 at 11:01; Status DC Lorazepam (Ativan Inj) 2 mg 1X ONCE IV Last administered on 10/16/18at 11:09; Start 10/16/18 at 11:00; Stop 10/16/18 at 11:01; Status DC Famotidine (Pepcid Vial) 20 mg 1X ONCE IVP Last administered on 10/16/18at 11:09; Start 10/16/18 at 11:00; Stop 10/16/18 at 11:01; Status DC Famotidine (Pepcid Vial) 20 mg STK-MED ONCE .ROUTE ; Start 10/16/18 at 11:01; Stop 10/16/18 at 11:01; Status DC Magnesium Sulfate 50 ml @ 25 mls/hr 1X ONCE IV ; Start 10/16/18 at 12:15; Stop 10/16/18 at 14:14 Ketorolac Tromethamine (Toradol 30mg Vial) 30 mg 1X ONCE IV ; Start 10/16/18 at 12:15; Stop 10/16/18 at 12:25; Status DC Active Scripts Active Ativan (Lorazepam) 0.5 Mg Tablet 0.5 Mg PO BID PRN Allergies Allergies: Coded Allergies: No Known Drug Allergies (Unverified , 07/08/16) ROS General: YES: Fatigue, Malaise, Appetite PSYCHOLOGICAL ROS: YES: Anxiety, Hostility, Irritablity; No: Behavioral Disorder, Concentration difficultie, Decreased libido, Depression, Disorientation, Hallucinations, Memory difficulties, Mood Swings, Obsessive thoughts, Physical abuse, Sexual abuse, Sleep disturbances, Suicidal ideation, Other Eyes: No Blurry vision, No Decreased vision, No Double vision, No Dry eyes, No Excessive tearing, No Eye Pain, No Itchy Eyes, No Loss of vision, No Photophobia, No Scotomata, No Uses contacts, No Uses glasses, No Other HEENT: No: Heacaches, Visual Changes, Hearing change, Nasal congestion, Nasal discharge, Oral lesions, Sinus pain, Sore Throat, Epistaxis, Sneezing, Snoring, Tinnitus, Vertigo, Vocal changes, Other ALLERGY AND IMMUNOLOGY: No: Hives, Insect Bite Sensitivity, Itchy/Watery Eyes, Nasal Congestion, Post Nasal Drip, Seasonal Allergies, Other Hematological and Lymphatic: No: Bleeding Problems, Blood Clots, Blood Transfusions, Brusing, Night Sweats, Pallor, Swollen Lymph Nodes, Other ENDOCRINE: No: Breast Changes, Galactorrhea, Hair Pattern Changes, Hot Flashes, Malaise/lethargy, Mood Swings, Palpitations, Polydipsia/polyuria, Skin Changes, Temperature Intolerance, Unexpected Weight Changes, Other Breast: No New/Changing Breast Lumps, No Nipple changes, No Nipple discharge, No Other Respiratory: No: Cough, Hemoptysis, Orthopnea, Pleuritic Pain, Shortness of breath, SOB with excertion, Sputum Changes, Stridor, Tachypnea, Wheezing, Other Cardiovascular: No Chest Pain, No Palpitations, No Orthopnea, No Paroxysmal Noc. Dyspnea, No Edema, No Lt Headedness, No Other Gastrointestinal: No Nausea, No Vomiting, No Abdominal Pain, No Diarrhea, No Constipation, No Melena, No Hematochezia, No Other Genitourinary: No Dysuria, No Frequency, No Incontinence, No Hematuria, No Retention, No Discharge, No Urgency, No Pain, No Flank Pain, No Other, No , No , No , No , No , No , No Musculoskeletal: No Gait Disturbance, No Joint Pain, No Joint Stiffness, No Joint Swelling, No Muscle Pain, No Muscular Weakness, No Pain In:, No Swelling In:, No Other Neurological: No Behavorial Changes, No Bowel/Bladder ControlChng, No Confusion, No Dizziness, No Gait Disturbance, No Headaches, No Impaired Coord/balance, No Memory Loss, No Numbness/Tingling, No Seizures, No Speech Problems, No Tremors, No Visual Changes, No Weakness, No Other Skin: No Dry Skin, No Eczema, No Hair Changes, No Lumps, No Mole Changes, No Mottling, No Nail Changes, No Pruritus, No Rash, No Skin Lesion Changes, No Other, No Acne Physical Exam General: Alert, No acute distress HEENT: Atraumatic, PERRLA, EOMI, Mucous membr. moist/pink Lungs: Clear to auscultation, Normal air movement Heart: S1S2, RRR, no gallops, no murmurs Abdomen: Normal bowel sounds, Soft, No tenderness, No hepatosplenomegaly, No masses Rectal Exam: not examined Extremities: No clubbing, No cyanosis, No edema, Normal pulses, No tender ness/swelling Skin: No rashes, No breakdown, No significant lesion Neuro: Normal gait, Normal speech, Strength at 5/5 X4 ext, Normal tone, Sensation intact, Cranial nerves 3-12 NL, Reflexes 2+ Vitals Vitals Vital Signs Date Time Temp Pulse Resp B/P (MAP) Pulse Ox O2 Delivery O2 Flow Rate FiO2 10/16/18 10:30 99.2 107 21 152/106 (121) 96 Room Air 99.2 Labs Labs Laboratory Tests Test 10/16/18 10:55 White Blood Count 8.8 x10^3/uL (4.0-11.0) Red Blood Count 5.33 x10^6/uL (4.30-5.70) Hemoglobin 10.5 g/dL (13.0-17.5) Hematocrit 35.5 % (39.0-53.0) Mean Corpuscular Volume 67 fL (79-100) Mean Corpuscular Hemoglobin 20 pg (25-35) Mean Corpuscular Hemoglobin Concent 30 g/dL (31-37) Red Cell Distribution Width 23.5 % (11.5-14.5) Platelet Count 271 x10^3/uL (140-400) Neutrophils (%) (Auto) 74 % (31-73) Lymphocytes (%) (Auto) 16 % (24-48) Monocytes (%) (Auto) 9 % (0-9) Eosinophils (%) (Auto) 0 % (0-3) Basophils (%) (Auto) 1 % (0-3) Neutrophils # (Auto) 6.5 x10^3/uL (1.8-7.7) Lymphocytes # (Auto) 1.4 x10^3/uL (1.0-4.8) Monocytes # (Auto) 0.8 x10^3/uL (0.0-1.1) Eosinophils # (Auto) 0.0 x10^3/uL (0.0-0.7) Basophils # (Auto) 0.1 x10^3/uL (0.0-0.2) Prothrombin Time 12.7 SEC (11.7-14.0) Prothromb Time International Ratio 1.0 (0.8-1.1) Activated Partial Thromboplast Time 24 SEC (24-38) Sodium Level 137 mmol/L (136-145) Potassium Level 3.7 mmol/L (3.5-5.1) Chloride Level 100 mmol/L (98-107) Carbon Dioxide Level 25 mmol/L (21-32) Anion Gap 12 (6-14) Blood Urea Nitrogen 6 mg/dL (8-26) Creatinine 1.1 mg/dL (0.7-1.3) Estimated GFR (Cockcroft-Gault) 69.5 Glucose Level 140 mg/dL (70-99) Calcium Level 9.1 mg/dL (8.5-10.1) Magnesium Level 1.6 mg/dL (1.8-2.4) Total Bilirubin 1.6 mg/dL (0.2-1.0) Direct Bilirubin 0.5 mg/dL (0.0-0.2) Aspartate Amino Transf (AST/SGOT) 93 U/L (15-37) Alanine Aminotransferase (ALT/SGPT) 64 U/L (16-63) Alkaline Phosphatase 96 U/L (46-116) Total Protein 7.9 g/dL (6.4-8.2) Albumin 3.6 g/dL (3.4-5.0) Ethyl Alcohol Level < 10 mg/dL (0-10) Laboratory Tests Test 10/16/18 10:55 White Blood Count 8.8 x10^3/uL (4.0-11.0) Red Blood Count 5.33 x10^6/uL (4.30-5.70) Hemoglobin 10.5 g/dL (13.0-17.5) Hematocrit 35.5 % (39.0-53.0) Mean Corpuscular Volume 67 fL (79-100) Mean Corpuscular Hemoglobin 20 pg (25-35) Mean Corpuscular Hemoglobin Concent 30 g/dL (31-37) Red Cell Distribution Width 23.5 % (11.5-14.5) Platelet Count 271 x10^3/uL (140-400) Neutrophils (%) (Auto) 74 % (31-73) Lymphocytes (%) (Auto) 16 % (24-48) Monocytes (%) (Auto) 9 % (0-9) Eosinophils (%) (Auto) 0 % (0-3) Basophils (%) (Auto) 1 % (0-3) Neutrophils # (Auto) 6.5 x10^3/uL (1.8-7.7) Lymphocytes # (Auto) 1.4 x10^3/uL (1.0-4.8) Monocytes # (Auto) 0.8 x10^3/uL (0.0-1.1) Eosinophils # (Auto) 0.0 x10^3/uL (0.0-0.7) Basophils # (Auto) 0.1 x10^3/uL (0.0-0.2) Prothrombin Time 12.7 SEC (11.7-14.0) Prothromb Time International Ratio 1.0 (0.8-1.1) Activated Partial Thromboplast Time 24 SEC (24-38) Sodium Level 137 mmol/L (136-145) Potassium Level 3.7 mmol/L (3.5-5.1) Chloride Level 100 mmol/L (98-107) Carbon Dioxide Level 25 mmol/L (21-32) Anion Gap 12 (6-14) Blood Urea Nitrogen 6 mg/dL (8-26) Creatinine 1.1 mg/dL (0.7-1.3) Estimated GFR (Cockcroft-Gault) 69.5 Glucose Level 140 mg/dL (70-99) Calcium Level 9.1 mg/dL (8.5-10.1) Magnesium Level 1.6 mg/dL (1.8-2.4) Total Bilirubin 1.6 mg/dL (0.2-1.0) Direct Bilirubin 0.5 mg/dL (0.0-0.2) Aspartate Amino Transf (AST/SGOT) 93 U/L (15-37) Alanine Aminotransferase (ALT/SGPT) 64 U/L (16-63) Alkaline Phosphatase 96 U/L (46-116) Total Protein 7.9 g/dL (6.4-8.2) Albumin 3.6 g/dL (3.4-5.0) Ethyl Alcohol Level < 10 mg/dL (0-10) VTE Prophylaxis Ordered VTE Prophylaxis Devices: No VTE Pharmacological Prophylaxi: Yes Assessment/Plan Assessment/Plan A/P: Acute ETOH withdrawal - CIWA scale, banana bag and ativan. PAT team to see Hypomagnesemia - replace 4 g IV Transaminitis - likely alcoholic hepatitis given hi shistory Microcytic anemia - concerning for likely GI loss, iron deficiency as with his ETOH use I would expect macrocytosis. may need GI evaluation eventually. Elevated bilirubin - possibly has some chronic liver disease. INR normal FEN - General diet PPX - heparin FULL CODE Dispo - would admit for ETOH withdrawal to prevent seizures, replace electrolytes, however, he is insistent he leave DYAN MORAN MD Oct 16, 2018 13:02
[2018-10-16 13:13] LABS: PLT ESTIMATE ADEQUATE (ADEQUATE)
[2018-10-16 13:29] LABS: ANISOCYTOSIS PRESENT; HYPOCHROMIA PRESENT; MICROCYTOSIS PRESENT; POLYCHROMASIA PRESENT
--- NOTE | 2018-10-17 07:35 | EKG ---
[facility] [address] [place] [address] Test Date: 2018-10-16 Test Time: 10:58:23 Pat Name: PASQUALE ORELLANA Department: Room: Gender: M Band Sewer: : 1965 Requested By: CORWIN LLANES Order Number: [id number] Reading MD: Owen Negron MD Measurements Intervals [place] Rate: 92 P: -144 [place]: 108 QRS: -23 QRSD: 92 T: -8 QT: 384 QTc: 480 Interpretive Statements SR LAFB LAD Electronically Signed On 10-17-2018 18:17:58 CDT by Owen Negron MD
== END 2018-10-16 13:00 | disposition left against medical advice (07) ==
LOC: ER 10:10 → 6 SOUTH 11:58 → UNDOADMIN 11:58
DX: F10.231 Alcohol dependence with withdrawal delirium (principal); D64.9 Anemia, unspecified; R00.0 Tachycardia, unspecified; E83.42 Hypomagnesemia; R79.89 Other specified abnormal findings of blood chemistry; G89.29 Other chronic pain; R10.9 Unspecified abdominal pain; R42 Dizziness and giddiness
CPT/HCPCS: 36415; 80048; 80076; 83735; 85025; 85610; 85730; 93005; 96361; 96365; 96375; 99285; G0480; J2060; J2405; J3490; J7030

== ENCOUNTER 2019-01-14 15:01 | Inpatient (IN) | payer BC ==
[~2019-01-14] VITALS: Ht 175.3 cm; Wt 86.9 kg
--- NOTE | 2019-01-14 15:27 | PHYS DOC ---
Past Medical History Past Medical History: Hypertension, Other Additional Past Medical Histor: seizures with alcohol withdrawl,ETOH ABUSE Past Surgical History: Other Additional Past Surgical Histo: L ANKLE Alcohol Use: Heavy Drug Use: None Adult General Chief Complaint Chief Complaint: CHEST PAIN HPI HPI Patient is a 53 year old male, accompanied by his , who presents to the emergency department with complaints of left-sided chest pain that he rated a 2- 3/10 this morning it was accompanied by shortness of breath, sweating, and nausea. He reports that recently he has had a decreased appetite, been fatigue, and generalized weakness. Patient states he drinks vodka daily usually drinks about half a liter of vodka every day. Patient reports that he last drank at 7: 00 this morning. He denies any suicidal ideations. Patient states that he would like to get help with alcohol detox at this time. His family history includes his father had a heart attack he denies any other cardiac history. Patient currently denies any chest pain or palpitations, lower extremity swelling, dizziness, headache, vomiting, diarrhea, or abdominal pain. He currently rates his discomfort as 0 out of 10. All other ROS is neg unless otherwise noted in HPI. Review of Systems Review of Systems See Above Current Medications Current Medications Current Medications Medications (Trade) Dose Ordered Sig/Jacqueline Start Time Stop Time Status Last Admin Dose Admin Lorazepam (Ativan Inj) 1 mg 1X ONCE 01/14/19 15:30 01/14/19 15:31 DC 01/14/19 15:39 1 MG Multivitamins 10 ml/Thiamine HCl 100 mg/Folic Acid 1 mg/Sodium Chloride 1,011.2 ml @ 1,000.088 mls/hr 1X ONCE 01/14/19 15:45 01/14/19 16:45 DC 01/14/19 15:49 1,000.088 MLS/HR Ondansetron HCl (Zofran) 4 mg 1X ONCE 01/14/19 15:30 01/14/19 15:31 DC 01/14/19 15:39 4 MG Allergies Allergies Allergies Coded Allergies Type Severity Reaction Last Updated Verified No Known Drug Allergies 07/08/16 No Physical Exam Physical Exam See Above Constitutional: Well developed, well nourished, no acute distress, non-toxic appearance. [] HENT: Normocephalic, atraumatic, bilateral external ears normal, oropharynx moist, no oral exudates, nose normal. [] Eyes: PERRLA, EOMI, conjunctiva normal, no discharge. [] Neck: Normal range of motion, no stridor. [] Cardiovascular:Heart rate regular rhythm, no murmur [] Lungs & Thorax: Bilateral breath sounds clear to auscultation [] Abdomen: Bowel sounds normal, soft, no tenderness, no masses, no pulsatile masses. Rectal Exam: Normal tone, No mass, Positive control Stool: Brown Guaiac: Positive Skin: Warm, dry, no erythema, no rash. [] Back: No tenderness Extremities: No cyanosis, no clubbing, ROM intact, no edema. [] Neurologic: Alert and oriented X 3, no focal deficits noted. [] Psychologic: Affect normal, judgement normal, mood normal. [] Current Patient Data Vital Signs Vital Signs Date Time Temp Pulse Resp B/P (MAP) Pulse Ox O2 Delivery O2 Flow Rate FiO2 01/14/19 16:30 90 16 128/58 (81) 95 01/14/19 15:05 98.8 Room Air 98.8 Lab Values Laboratory Tests Test 01/14/19 15:20 01/14/19 16:41 White Blood Count 4.0 x10^3/uL (4.0-11.0) Red Blood Count 4.68 x10^6/uL (4.30-5.70) Hemoglobin 8.4 g/dL (13.0-17.5) L Hematocrit 29.4 % (39.0-53.0) L Mean Corpuscular Volume 63 fL (79-100) L Mean Corpuscular Hemoglobin 18 pg (25-35) L Mean Corpuscular Hemoglobin Concent 29 g/dL (31-37) L Red Cell Distribution Width 23.0 % (11.5-14.5) H Platelet Count 230 x10^3/uL (140-400) Neutrophils (%) (Auto) 37 % (31-73) Lymphocytes (%) (Auto) 51 % (24-48) H Monocytes (%) (Auto) 9 % (0-9) Eosinophils (%) (Auto) 1 % (0-3) Basophils (%) (Auto) 2 % (0-3) Neutrophils # (Auto) 1.5 x10^3/uL (1.8-7.7) L Lymphocytes # (Auto) 2.0 x10^3/uL (1.0-4.8) Monocytes # (Auto) 0.4 x10^3/uL (0.0-1.1) Eosinophils # (Auto) 0.0 x10^3/uL (0.0-0.7) Basophils # (Auto) 0.1 x10^3/uL (0.0-0.2) Platelet Estimate Adequate (ADEQUATE) Polychromasia Slight Hypochromasia Marked Anisocytosis Mod Microcytosis Marked Ovalocytes Mod Schistocytes Occ Prothrombin Time 13.5 SEC (11.7-14.0) Prothrombin Time INR 1.1 (0.8-1.1) Activated Partial Thromboplast Time 27 SEC (24-38) Sodium Level 144 mmol/L (136-145) Potassium Level 3.5 mmol/L (3.5-5.1) Chloride Level 105 mmol/L (98-107) Carbon Dioxide Level 24 mmol/L (21-32) Anion Gap 15 (6-14) H Blood Urea Nitrogen 9 mg/dL (8-26) Creatinine 1.0 mg/dL (0.7-1.3) Estimated GFR (Cockcroft-Gault) 77.6 BUN/Creatinine Ratio 9 (6-20) Glucose Level 91 mg/dL (70-99) Calcium Level 8.2 mg/dL (8.5-10.1) L Total Bilirubin 0.6 mg/dL (0.2-1.0) Aspartate Amino Transferase (AST) 154 U/L (15-37) H Alanine Aminotransferase (ALT) 94 U/L (16-63) H Alkaline Phosphatase 68 U/L (46-116) Creatine Kinase 186 U/L (39-308) Creatine Kinase MB (Mass) 4.0 ng/mL (0.0-3.6) H Creatine Kinase MB Relative Index 2.2 % (0-4) Troponin I Quantitative < 0.017 ng/mL (0.000-0.055) CL-Upp-U-Type Natriuretic Peptide 34 pg/mL (0-124) Total Protein 7.2 g/dL (6.4-8.2) Albumin 3.4 g/dL (3.4-5.0) Albumin/Globulin Ratio 0.9 (1.0-1.7) L Lipase 220 U/L (73-393) Ethyl Alcohol Level 268 mg/dL (0-10) H Stool Occult Blood Positive (NEG) Laboratory Tests 01/14/19 15:20 Laboratory Tests 01/14/19 15:20 EKG EKG 1517- SR with PACs, rate 62, T abnormality in inferior leads, no STEMI, read by Dr. Rivera.[] Radiology/Procedures Radiology/Procedures PROCEDURE: PORTABLE CHEST 1V EXAM: Chest, single view. HISTORY: Cough. COMPARISON: 10/01/2016 FINDINGS: A frontal view of the chest obtained. There is no infiltrate, pleural effusion or pneumothorax. The heart is normal in size. IMPRESSION: No acute pulmonary finding. [] Course & Med Decision Making Course & Med Decision Making Pertinent Labs and Imaging studies reviewed. (See chart for details) Patient is a 53-year-old male who presented to the emergency department with complaints of alcohol intoxication, shortness of breath, generalized fatigue, and chest pain. Patient also reported having blood and dark stools for several weeks. His hemoglobin and hematocrit had decreased significantly since his prior visit that was 3 months ago. dx: Anemia, fatigue, Alcohol withdrawl CBC: Hgb 8.4, Hct 29.4; previous visit on 10/16/18 Hgb 10.5; PT/INR WNL; CMP AST 154, ALT 94, Ca 8.2 Otherwise unremarkable, Troponin <0.017; TANYA 268, Fecal occult stool positive CXR: no acute findings [id number] with Dr. Govea who is the admitting physician, and care was assumed following discussion of patient. Patient's vital signs stable. Patient remains afebrile, appears nontoxic, respirations even and unlabored. Patient will be admitted to the med/tele floor. Patient's case and plan of care also discussed with Nicole Terrazas [] Dragon Disclaimer Dragon Disclaimer This electronic medical record was generated, in whole or in part, using a voice recognition dictation system. Departure Departure Impression: Primary Impression: Anemia Additional Impressions: Alcohol withdrawal Fatigue Disposition: ADMITTED INPATIENT Condition: STABLE Referrals: JARED MONTEMAYOR MD (PCP) The HEART Score for CP Pts HEART Score for Chest Pain: HEART Score for Chest Pain Response (Comments) Value History Slighlty/Non-Suspicious 0 ECG Normal 0 Age >45 - < 65 1 Risk Factors 1 or 2 Risk Factors 1 Troponin < Normal Limit 0 Total 2 Risk Factors: Risk Factors: DM, Current or recent (<one month) smoker, HTN, HLP, family history of CAD, obesity. 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
[2019-01-14] MEDS ORDERED: ONDANSETRON PF 4 MG/2 ML VIAL. IV ONE (15:30)
[2019-01-14 15:34] LABS: BASO # 0.1 x10^3/uL (0.0-0.2); BASO % 2 % (0-3); EOS % 1 % (0-3); HEMATOCRIT 29.4 % (39.0-53.0); HEMOGLOBIN 8.4 g/dL (13.0-17.5); LYMPH % 51 % (24-48); MEAN CORPUSCULAR HEMOGLOBIN 18 pg (25-35); MEAN CORPUSCULAR HGB CONC 29 g/dL (31-37); MEAN CORPUSCULAR VOLUME 63 fL (79-100); MONO # 0.4 x10^3/uL (0.0-1.1); MONO % 9 % (0-9); NEUT # 1.5 x10^3/uL (1.8-7.7); NEUT % 37 % (31-73); PLATELET COUNT 230 x10^3/uL (140-400); RED BLOOD COUNT 4.68 x10^6/uL (4.30-5.70)
[2019-01-14 15:45] LABS: CALCIUM 8.2 mg/dL (8.5-10.1); GFR 77.6; POTASSIUM 3.5 mmol/L (3.5-5.1)
[2019-01-14] MEDS ORDERED: MULTIVIT INFUSN,ADULT 4,VIT K 10 ML, THIAMINE INJ 100 MG, FOLIC ACID INJ 1 MG in IV NOR... IV ONE (15:45)
[2019-01-14 15:51] LABS: ALBUMIN 3.4 g/dL (3.4-5.0); ALBUMIN/GLOBULIN RATIO 0.9 (1.0-1.7); TOTAL BILIRUBIN 0.6 mg/dL (0.2-1.0); TOTAL PROTEIN 7.2 g/dL (6.4-8.2)
[2019-01-14 16:19] LABS: PROTHROMBIN TIME PATIENT 13.5 SEC (11.7-14.0)
[2019-01-14 16:27] LABS: PLT ESTIMATE ADEQUATE (ADEQUATE)
[2019-01-14 16:28] LABS: ANISOCYTOSIS MOD; HYPOCHROMIA MARKED; MICROCYTOSIS MARKED; OVALOCYTES MOD; POLYCHROMASIA SLIGHT; SCHISTOCYTES OCC
--- NOTE | 2019-01-14 16:28 | RAD ---
EXAM: Chest, single view. HISTORY: Cough. COMPARISON: 10/01/2016 FINDINGS: A frontal view of the chest obtained. There is no infiltrate, pleural effusion or pneumothorax. The heart is normal in size. IMPRESSION: No acute pulmonary finding. Electronically signed by: Rosibel Hester MD (01/14/2019 4:26 PM) [id number]
[2019-01-14 17:01] LABS: FECAL OB PT POSITIVE (NEG)
[2019-01-14] MEDS: ONDANSETRON PF 4 MG/2 ML VIAL. IVP PRN (21:28)
--- NOTE | 2019-01-14 21:35 | HP ---
ADMIT DATE: 01/14/2019 CHIEF COMPLAINT: Weakness and chest pain. HISTORY OF PRESENT ILLNESS: The patient is a pleasant 53-year-old male who presented to the ER with chest pain and weakness, describes the pain as on the left side of his chest, rated at 7/10, started at 2 or 3 this morning. He had some associated shortness of breath and sweating. His appetite has been low. His states he has not been swallowing well. He has been fatigued and now states that he has been having some blood in his stool and some hematemesis. He drinks vodka daily. I have admitted this patient a couple of times in the past. His remembers me. There is a family history of coronary artery disease in the family. He states moving makes it worse and sitting still makes it better. I discussed the case with ER physician. We are going to admit the patient and consult Cardiology and put him on alcohol withdrawal protocol and consult GI and Cardiology and put him on alcohol withdrawal protocol. PAST MEDICAL HISTORY: Hypertension, alcoholism. He drinks vodka daily, seizures, left ankle surgery. ALLERGIES: None. FAMILY HISTORY: Alcoholism and coronary artery disease. SOCIAL HISTORY: He is . He has 2 kids, they are grown, 17 and 19. 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 He drinks alcohol daily. No smoking or drugs. MEDICATIONS: Reviewed. Please refer to the MRAD. He is on Ativan. REVIEW OF SYSTEMS: GENERAL: No history of weight change, weakness or fevers. SKIN: No bruising, hair changes or rashes. EYES: No blurred, double or loss of vision. NOSE AND THROAT: No history of nosebleeds, hoarseness or sore throat. HEART: He complains of chest pain. LUNGS: He complains of shortness of breath. GASTROINTESTINAL: Denies changes in appetite, nausea, vomiting, diarrhea or constipation. GENITOURINARY: No history of frequency, urgency, hesitancy or nocturia. NEUROLOGIC: Denies history of numbness, tingling, tremor or weakness. PSYCHIATRIC: He complains of some depression. ENDOCRINE: No history of heat or cold intolerance, polyuria or polydipsia. EXTREMITIES: Denies muscle weakness, joint pain, pain on walking or stiffness. PHYSICAL EXAMINATION: VITALS: Within normal limits and are stable. GENERAL: No apparent distress. Alert and oriented. HEENT: Head is normocephalic, atraumatic, pupils were equally round and reactive to light and accommodation. Oral ocular and nasal membranes are intact and moist. NECK: Supple, no JVD, no thyromegaly was noted. LUNGS: Clear to auscultation in all lung reno without rhonchi or wheezing. HEART: RRR, S1, S2 present. Peripheral pulses intact, no obvious murmurs were noted. ABDOMEN: Soft, nontender. Positive bowel sounds no organomegaly, normal bowel sounds. EXTREMITIES: Without any cyanosis, clubbing, or edema. Pedal pulses intact, Homans sign is negative. NEUROLOGIC: Normal speech, normal tone. A & O x3, moves all extremities, no obvious focal deficits. PSYCHIATRIC: Normal affect, normal mood. Stable. SKIN: No ulcerations or rashes, good skin turgor, no jaundice. VASCULAR: Good capillary refill, neurovascular bundle appears to be intact. GENITOURINARY: His penis has normal structure. IMAGING: Chest x-ray shows no acute disease. LABORATORY DATA: Hematology shows a white count of 4 and hemoglobin of 8.4. Back a few months ago, his hemoglobin is 10.4. Platelets are 230. Electrolytes normal other than anion gap of 15, INR is 1.1. Alcohol level is 268. Stool occult blood positive. ASSESSMENT AND PLAN: Chest pain, anemia, gastrointestinal bleed, anion gap metabolic acidosis. I suspect he has esophageal varices as well. The patient is being admitted. We will consult Cardiology and GI, transfuse p.r.n. Serial enzymes, serial EKGs, cardiac monitoring, full code, alcohol withdrawal protocol, p.r.n. Zofran, p.r.n. lorazepam, banana bag, drugs of abuse screen. Long-term prognosis is guarded. I told him he has to quit drinking or he has a poor long-term prognosis. EMILY HOUSTON DO DR: KATE/carmela JOB#: [id number] / [id number]
[2019-01-14 22:40] VITALS: BP 153/89
[2019-01-15] MEDS: ONDANSETRON PF 4 MG/2 ML VIAL. IVP PRN ×2 (01:34→07:25)
[2019-01-15 03:29] VITALS: BP 173/92
--- NOTE | 2019-01-15 06:30 | EKG ---
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
[2019-01-15 07:00] VITALS: BP 160/103
[2019-01-15] MEDS ORDERED: chlordiazePOXIDE HCL 25 MG CAPSULE PO PRN (09:00)
[2019-01-15] MEDS ORDERED: ACETAMINOPHEN 500 MG TABLET PO PRN (09:00)
[2019-01-15] MEDS ORDERED: LABETALOL 20 MG/4 ML DISP.SYRIN. IVP PRN (09:00)
[2019-01-15] MEDS ORDERED: ACETAMINOPHEN/CODEINE 300/30MG TABLET. PO PRN (09:00)
[2019-01-15 09:46] LABS: BILIRUBIN,URINE NEGATIVE (NEG); CLARITY,URINE CLEAR; COLOR,URINE YELLOW; NITRITE,URINE NEGATIVE (NEG); PH,URINE 8.5; PROTEIN,URINE NEGATIVE (NEG-TRACE)
[2019-01-15 09:51] LABS: AMPHETAMINE/METHAMPHETAMINE NEG (NEG); BARBITURATES NEG (NEG); BENZODIAZEPINES NEG (NEG); CANNABINOIDS NEG (NEG); COCAINE NEG (NEG); METHADONE NEG (NEG); OPIATES NEG (NEG); PHENCYCLIDINE NEG (NEG)
[2019-01-15 10:12] LABS: BACTERIA,URINE 0 /HPF (0-FEW); RBC,URINE 0 /HPF (0-2); SQUAMOUS EPITHELIAL CELL,UR OCC /LPF; WBC,URINE OCC /HPF (0-4)
--- NOTE | 2019-01-15 10:46 | PDOC ---
PROGRESS NOTES Chief Complaint Chief Complaint 1. Accel HTN 2. Sinus tachy 3.ALcoholism - levels 208 4. MIcrocytic anemia (hgb 8, MCV 60s) 5. FOBT positive History of Present Illness History of Present Illness NO home meds to reconcile BP high, sinus tachy Still shaky, ETOH 208 Interested in AA Signif other at bedside, lots of legit qs FOBT positive, no BRBPR per pt, never happened before\ NEver had c scope, denies fam hx Colon ca or such Hgb 8, BP high, MCV 60s PLAN: Add GI consult, heme occult positive, microcytic anemia Check MAIA panel - if MAIA< start ferrous PO HH tmr PPI PO PT ot tmr L:Abetolol prn for high BP BAnana bag, other supprotive meds Check mag in this alcoholic FRANCIS danielle RN Vitals Vitals Vital Signs Date Time Temp Pulse Resp B/P (MAP) Pulse Ox O2 Delivery O2 Flow Rate FiO2 01/15/19 08:00 Room Air 01/15/19 07:00 98.8 103 18 160/103 (122) 98 98.8 Physical Exam General: Alert, Oriented X3, Cooperative, No acute distress Heart: Regular rate, Normal S1, Normal S2 Lungs: Clear, Other (sinus tachy) Abdomen: Normal bowel sounds, Soft Extremities: No clubbing, No cyanosis Skin: No rashes, No breakdown Labs LABS Laboratory Tests Test 01/14/19 15:20 01/14/19 16:41 01/15/19 09:00 01/15/19 09:30 White Blood Count 4.0 x10^3/uL (4.0-11.0) Red Blood Count 4.68 x10^6/uL (4.30-5.70) Hemoglobin 8.4 g/dL (13.0-17.5) Hematocrit 29.4 % (39.0-53.0) Mean Corpuscular Volume 63 fL (79-100) Mean Corpuscular Hemoglobin 18 pg (25-35) Mean Corpuscular Hemoglobin Concent 29 g/dL (31-37) Red Cell Distribution Width 23.0 % (11.5-14.5) Platelet Count 230 x10^3/uL (140-400) Neutrophils (%) (Auto) 37 % (31-73) Lymphocytes (%) (Auto) 51 % (24-48) Monocytes (%) (Auto) 9 % (0-9) Eosinophils (%) (Auto) 1 % (0-3) Basophils (%) (Auto) 2 % (0-3) Neutrophils # (Auto) 1.5 x10^3/uL (1.8-7.7) Lymphocytes # (Auto) 2.0 x10^3/uL (1.0-4.8) Monocytes # (Auto) 0.4 x10^3/uL (0.0-1.1) Eosinophils # (Auto) 0.0 x10^3/uL (0.0-0.7) Basophils # (Auto) 0.1 x10^3/uL (0.0-0.2) Platelet Estimate Adequate (ADEQUATE) Polychromasia Slight Hypochromasia Marked Anisocytosis Mod Microcytosis Marked Ovalocytes Mod Schistocytes Occ Prothrombin Time 13.5 SEC (11.7-14.0) Prothromb Time International Ratio 1.1 (0.8-1.1) Activated Partial Thromboplast Time 27 SEC (24-38) Sodium Level 144 mmol/L (136-145) Potassium Level 3.5 mmol/L (3.5-5.1) Chloride Level 105 mmol/L (98-107) Carbon Dioxide Level 24 mmol/L (21-32) Anion Gap 15 (6-14) Blood Urea Nitrogen 9 mg/dL (8-26) Creatinine 1.0 mg/dL (0.7-1.3) Estimated GFR (Cockcroft-Gault) 77.6 BUN/Creatinine Ratio 9 (6-20) Glucose Level 91 mg/dL (70-99) Calcium Level 8.2 mg/dL (8.5-10.1) Total Bilirubin 0.6 mg/dL (0.2-1.0) Aspartate Amino Transf (AST/SGOT) 154 U/L (15-37) Alanine Aminotransferase (ALT/SGPT) 94 U/L (16-63) Alkaline Phosphatase 68 U/L (46-116) Creatine Kinase 186 U/L (39-308) Creatine Kinase MB (Mass) 4.0 ng/mL (0.0-3.6) Creatine Kinase MB Relative Index 2.2 % (0-4) Troponin I Quantitative < 0.017 ng/mL (0.000-0.055) DO-Vbq-C-Type Natriuretic Peptide 34 pg/mL (0-124) Total Protein 7.2 g/dL (6.4-8.2) Albumin 3.4 g/dL (3.4-5.0) Albumin/Globulin Ratio 0.9 (1.0-1.7) Lipase 220 U/L (73-393) Ethyl Alcohol Level 268 mg/dL (0-10) Stool Occult Blood Positive (NEG) Urine Collection Type Unknown Urine Color Yellow Urine Clarity Clear Urine pH 8.5 Urine Specific [place] 1.020 Urine Protein Negative mg/dL (NEG-TRACE) Urine Glucose (UA) Negative mg/dL (NEG) Urine Ketones (Stick) Negative mg/dL (NEG) Urine Blood Negative (NEG) Urine Nitrite Negative (NEG) Urine Bilirubin Negative (NEG) Urine Urobilinogen Dipstick 1.0 mg/dL (0.2 mg/dL) Urine Leukocyte Esterase Negative (NEG) Urine RBC 0 /HPF (0-2) Urine WBC Occ /HPF (0-4) Urine Squamous Epithelial Cells Occ /LPF Urine Bacteria 0 /HPF (0-FEW) Urine Mucus Mod /LPF Urine Opiates Screen Neg (NEG) Urine Methadone Screen Neg (NEG) Urine Barbiturates Neg (NEG) Urine Phencyclidine Screen Neg (NEG) Urine Amphetamine/Methamphetamine Neg (NEG) Urine Benzodiazepines Screen Neg (NEG) Urine Cocaine Screen Neg (NEG) Urine Cannabinoids Screen Neg (NEG) Urine Ethyl Alcohol Neg (NEG) Iron Level 23 ug/dL (65-175) Total Iron Binding Capacity 360 ug/dL (250-450) Iron Saturation 6 % (15-34) Review of Systems Review of Systems shaky,gait unsteady, no abd pain, no cp, no soa, no fevers, rest 14 pt neg Assessment and Plan Assessmemt and Plan Problems Medical Problems: (1) Anemia Status: Acute (2) Fatigue Status: Acute (3) Shortness of breath Status: Acute Comment Review of Relevant I have reviewed the following items lana (where applicable) has been applied. Labs Laboratory Tests Test 01/14/19 15:20 01/14/19 16:41 01/15/19 09:00 01/15/19 09:30 White Blood Count 4.0 x10^3/uL (4.0-11.0) Red Blood Count 4.68 x10^6/uL (4.30-5.70) Hemoglobin 8.4 g/dL (13.0-17.5) Hematocrit 29.4 % (39.0-53.0) Mean Corpuscular Volume 63 fL (79-100) Mean Corpuscular Hemoglobin 18 pg (25-35) Mean Corpuscular Hemoglobin Concent 29 g/dL (31-37) Red Cell Distribution Width 23.0 % (11.5-14.5) Platelet Count 230 x10^3/uL (140-400) Neutrophils (%) (Auto) 37 % (31-73) Lymphocytes (%) (Auto) 51 % (24-48) Monocytes (%) (Auto) 9 % (0-9) Eosinophils (%) (Auto) 1 % (0-3) Basophils (%) (Auto) 2 % (0-3) Neutrophils # (Auto) 1.5 x10^3/uL (1.8-7.7) Lymphocytes # (Auto) 2.0 x10^3/uL (1.0-4.8) Monocytes # (Auto) 0.4 x10^3/uL (0.0-1.1) Eosinophils # (Auto) 0.0 x10^3/uL (0.0-0.7) Basophils # (Auto) 0.1 x10^3/uL (0.0-0.2) Platelet Estimate Adequate (ADEQUATE) Polychromasia Slight Hypochromasia Marked Anisocytosis Mod Microcytosis Marked Ovalocytes Mod Schistocytes Occ Prothrombin Time 13.5 SEC (11.7-14.0) Prothromb Time International Ratio 1.1 (0.8-1.1) Activated Partial Thromboplast Time 27 SEC (24-38) Sodium Level 144 mmol/L (136-145) Potassium Level 3.5 mmol/L (3.5-5.1) Chloride Level 105 mmol/L (98-107) Carbon Dioxide Level 24 mmol/L (21-32) Anion Gap 15 (6-14) Blood Urea Nitrogen 9 mg/dL (8-26) Creatinine 1.0 mg/dL (0.7-1.3) Estimated GFR (Cockcroft-Gault) 77.6 BUN/Creatinine Ratio 9 (6-20) Glucose Level 91 mg/dL (70-99) Calcium Level 8.2 mg/dL (8.5-10.1) Total Bilirubin 0.6 mg/dL (0.2-1.0) Aspartate Amino Transf (AST/SGOT) 154 U/L (15-37) Alanine Aminotransferase (ALT/SGPT) 94 U/L (16-63) Alkaline Phosphatase 68 U/L (46-116) Creatine Kinase 186 U/L (39-308) Creatine Kinase MB (Mass) 4.0 ng/mL (0.0-3.6) Creatine Kinase MB Relative Index 2.2 % (0-4) Troponin I Quantitative < 0.017 ng/mL (0.000-0.055) LB-Hhj-W-Type Natriuretic Peptide 34 pg/mL (0-124) Total Protein 7.2 g/dL (6.4-8.2) Albumin 3.4 g/dL (3.4-5.0) Albumin/Globulin Ratio 0.9 (1.0-1.7) Lipase 220 U/L (73-393) Ethyl Alcohol Level 268 mg/dL (0-10) Stool Occult Blood Positive (NEG) Urine Collection Type Unknown Urine Color Yellow Urine Clarity Clear Urine pH 8.5 Urine Specific [place] 1.020 Urine Protein Negative mg/dL (NEG-TRACE) Urine Glucose (UA) Negative mg/dL (NEG) Urine Ketones (Stick) Negative mg/dL (NEG) Urine Blood Negative (NEG) Urine Nitrite Negative (NEG) Urine Bilirubin Negative (NEG) Urine Urobilinogen Dipstick 1.0 mg/dL (0.2 mg/dL) Urine Leukocyte Esterase Negative (NEG) Urine RBC 0 /HPF (0-2) Urine WBC Occ /HPF (0-4) Urine Squamous Epithelial Cells Occ /LPF Urine Bacteria 0 /HPF (0-FEW) Urine Mucus Mod /LPF Urine Opiates Screen Neg (NEG) Urine Methadone Screen Neg (NEG) Urine Barbiturates Neg (NEG) Urine Phencyclidine Screen Neg (NEG) Urine Amphetamine/Methamphetamine Neg (NEG) Urine Benzodiazepines Screen Neg (NEG) Urine Cocaine Screen Neg (NEG) Urine Cannabinoids Screen Neg (NEG) Urine Ethyl Alcohol Neg (NEG) Iron Level 23 ug/dL (65-175) Total Iron Binding Capacity 360 ug/dL (250-450) Iron Saturation 6 % (15-34) Laboratory Tests Test 01/14/19 15:20 01/14/19 16:41 01/15/19 09:00 01/15/19 09:30 White Blood Count 4.0 x10^3/uL (4.0-11.0) Red Blood Count 4.68 x10^6/uL (4.30-5.70) Hemoglobin 8.4 g/dL (13.0-17.5) Hematocrit 29.4 % (39.0-53.0) Mean Corpuscular Volume 63 fL (79-100) Mean Corpuscular Hemoglobin 18 pg (25-35) Mean Corpuscular Hemoglobin Concent 29 g/dL (31-37) Red Cell Distribution Width 23.0 % (11.5-14.5) Platelet Count 230 x10^3/uL (140-400) Neutrophils (%) (Auto) 37 % (31-73) Lymphocytes (%) (Auto) 51 % (24-48) Monocytes (%) (Auto) 9 % (0-9) Eosinophils (%) (Auto) 1 % (0-3) Basophils (%) (Auto) 2 % (0-3) Neutrophils # (Auto) 1.5 x10^3/uL (1.8-7.7) Lymphocytes # (Auto) 2.0 x10^3/uL (1.0-4.8) Monocytes # (Auto) 0.4 x10^3/uL (0.0-1.1) Eosinophils # (Auto) 0.0 x10^3/uL (0.0-0.7) Basophils # (Auto) 0.1 x10^3/uL (0.0-0.2) Platelet Estimate Adequate (ADEQUATE) Polychromasia Slight Hypochromasia Marked Anisocytosis Mod Microcytosis Marked Ovalocytes Mod Schistocytes Occ Prothrombin Time 13.5 SEC (11.7-14.0) Prothromb Time International Ratio 1.1 (0.8-1.1) Activated Partial Thromboplast Time 27 SEC (24-38) Sodium Level 144 mmol/L (136-145) Potassium Level 3.5 mmol/L (3.5-5.1) Chloride Level 105 mmol/L (98-107) Carbon Dioxide Level 24 mmol/L (21-32) Anion Gap 15 (6-14) Blood Urea Nitrogen 9 mg/dL (8-26) Creatinine 1.0 mg/dL (0.7-1.3) Estimated GFR (Cockcroft-Gault) 77.6 BUN/Creatinine Ratio 9 (6-20) Glucose Level 91 mg/dL (70-99) Calcium Level 8.2 mg/dL (8.5-10.1) Total Bilirubin 0.6 mg/dL (0.2-1.0) Aspartate Amino Transf (AST/SGOT) 154 U/L (15-37) Alanine Aminotransferase (ALT/SGPT) 94 U/L (16-63) Alkaline Phosphatase 68 U/L (46-116) Creatine Kinase 186 U/L (39-308) Creatine Kinase MB (Mass) 4.0 ng/mL (0.0-3.6) Creatine Kinase MB Relative Index 2.2 % (0-4) Troponin I Quantitative < 0.017 ng/mL (0.000-0.055) NV-Mje-Z-Type Natriuretic Peptide 34 pg/mL (0-124) Total Protein 7.2 g/dL (6.4-8.2) Albumin 3.4 g/dL (3.4-5.0) Albumin/Globulin Ratio 0.9 (1.0-1.7) Lipase 220 U/L (73-393) Ethyl Alcohol Level 268 mg/dL (0-10) Stool Occult Blood Positive (NEG) Urine Collection Type Unknown Urine Color Yellow Urine Clarity Clear Urine pH 8.5 Urine Specific [place] 1.020 Urine Protein Negative mg/dL (NEG-TRACE) Urine Glucose (UA) Negative mg/dL (NEG) Urine Ketones (Stick) Negative mg/dL (NEG) Urine Blood Negative (NEG) Urine Nitrite Negative (NEG) Urine Bilirubin Negative (NEG) Urine Urobilinogen Dipstick 1.0 mg/dL (0.2 mg/dL) Urine Leukocyte Esterase Negative (NEG) Urine RBC 0 /HPF (0-2) Urine WBC Occ /HPF (0-4) Urine Squamous Epithelial Cells Occ /LPF Urine Bacteria 0 /HPF (0-FEW) Urine Mucus Mod /LPF Urine Opiates Screen Neg (NEG) Urine Methadone Screen Neg (NEG) Urine Barbiturates Neg (NEG) Urine Phencyclidine Screen Neg (NEG) Urine Amphetamine/Methamphetamine Neg (NEG) Urine Benzodiazepines Screen Neg (NEG) Urine Cocaine Screen Neg (NEG) Urine Cannabinoids Screen Neg (NEG) Urine Ethyl Alcohol Neg (NEG) Iron Level 23 ug/dL (65-175) Total Iron Binding Capacity 360 ug/dL (250-450) Iron Saturation 6 % (15-34) Medications Current Medications Multivitamins 10 ml/Thiamine HCl 100 mg/Folic Acid 1 mg/Sodium Chloride 1,011.2 ml @ 1,000.088 mls/hr 1X ONCE IV Last administered on 01/14/19at 15:49; Start 01/14/19 at 15:45; Stop 01/14/19 at 16:45; Status DC Lorazepam (Ativan Inj) 1 mg 1X ONCE IV Last administered on 01/14/19at 15:39; Start 01/14/19 at 15:30; Stop 01/14/19 at 15:31; Status DC Ondansetron HCl (Zofran) 4 mg 1X ONCE IV Last administered on 01/14/19at 15:39; Start 01/14/19 at 15:30; Stop 01/14/19 at 15:31; Status DC Lorazepam (Ativan Inj) 2 mg PRN Q1HR PRN IV For CIWA 8-14; Start 01/14/19 at 17:00 Lorazepam (Ativan Inj) 4 mg PRN Q1HR PRN IV For CIWA 15 or greater; Start 01/14/19 at 17:00 Ondansetron HCl (Zofran) 4 mg PRN Q6HRS PRN IVP NAUSEA/VOMITING 1ST CHOICE Last administered on 01/15/19at 07:25; Start 01/14/19 at 21:30 Acetaminophen (Tylenol) 500 mg PRN Q6HRS PRN PO MILD PAIN / TEMP; Start 01/15/19 at 09:00 Acetaminophen/ Codeine Phosphate (Tylenol #3) 1 tab PRN Q6HRS PRN PO MODERATE TO SEVERE PAIN; Start 01/15/19 at 09:00 Chlordiazepoxide (Librium) 25 mg PRN Q6HRS PRN PO ANXIETY / AGITATION; Start 01/15/19 at 09:00 Labetalol HCl (Normodyne Iv Push) 10 mg PRN Q2HR PRN IVP HYPERTENSION; Start 01/15/19 at 09:00 Active Scripts Active Ativan (Lorazepam) 0.5 Mg Tablet 0.5 Mg PO BID PRN Vitals/I & O Vital Sign - Last 24 Hours 01/14/19 01/14/19 01/14/19 01/14/19 15:05 16:00 16:30 17:53 Temp 98.8 98.8 Pulse 79 77 90 70 Resp 17 18 16 16 B/P (MAP) 130/78 (95) 142/77 (98) 128/58 (81) 133/72 (92) Pulse Ox 100 94 95 98 O2 Delivery Room Air 01/14/19 01/14/19 01/14/19 01/14/19 18:00 18:50 20:18 22:40 Temp 98.3 98.3 Pulse 67 72 117 Resp 17 16 18 B/P (MAP) /77 125/75 (92) 153/89 (110) Pulse Ox 99 100 95 O2 Delivery Room Air Room Air 01/15/19 01/15/19 01/15/19 03:29 07:00 08:00 Temp 98.9 98.8 98.9 98.8 Pulse 109 103 Resp 16 18 B/P (MAP) 173/92 (119) 160/103 (122) Pulse Ox 95 98 O2 Delivery Room Air Room Air Room Air Intake and Output 01/14/19 01/14/19 01/15/19 15:00 23:00 07:00 Intake Total 1300 ml 500 ml Output Total 0 ml Balance 1300 ml 500 ml DANIEL CHEUNG MD Jan 15, 2019 10:46
[2019-01-15 11:11] VITALS: BP 155/98
[2019-01-15] MEDS: MULTIVIT INFUSN,ADULT 4,VIT K 10 ML, THIAMINE INJ 100 MG, FOLIC ACID INJ 1 MG in IV NOR... IV SCH (11:37)
[2019-01-15] MEDS: METOPROLOL TARTRATE 5 MG/5 ML VIAL. IVP SCH ×3 (11:37→23:02)
--- NOTE | 2019-01-15 14:25 | PDOC2 ---
CONSULT Date of Consult Date of Consult DATE: 01/15/19 TIME: 14:23 Reason for Consult Reason for Consult: Iron deficiency anemia Past Medical History Cardiovascular: No pertinent hx Pulmonary: No pertinent hx GI: No pertinent hx Heme/Onc: No pertinent hx Hepatobiliary: No pertinent hx Psych: No pertinent hx Rheumatologic: No pertinent hx Infectious disease: No pertinent hx Renal/: No pertinent hx Endocrine: No pertinent hx Past Surgical History Past Surgical History: Other Family History Family History: Other Social History ALCOHOL: heavy Drugs: None Current Problem List Problem List Problems Medical Problems: (1) Anemia Status: Acute (2) Fatigue Status: Acute (3) Shortness of breath Status: Acute Current Medications Current Medications Current Medications Multivitamins 10 ml/Thiamine HCl 100 mg/Folic Acid 1 mg/Sodium Chloride 1,011.2 ml @ 1,000.088 mls/hr 1X ONCE IV Last administered on 01/14/19at 15:49; Start 01/14/19 at 15:45; Stop 01/14/19 at 16:45; Status DC Lorazepam (Ativan Inj) 1 mg 1X ONCE IV Last administered on 01/14/19at 15:39; Start 01/14/19 at 15:30; Stop 01/14/19 at 15:31; Status DC Ondansetron HCl (Zofran) 4 mg 1X ONCE IV Last administered on 01/14/19at 15:39; Start 01/14/19 at 15:30; Stop 01/14/19 at 15:31; Status DC Lorazepam (Ativan Inj) 2 mg PRN Q1HR PRN IV For CIWA 8-14; Start 01/14/19 at 17:00 Lorazepam (Ativan Inj) 4 mg PRN Q1HR PRN IV For CIWA 15 or greater; Start 01/14/19 at 17:00 Ondansetron HCl (Zofran) 4 mg PRN Q6HRS PRN IVP NAUSEA/VOMITING 1ST CHOICE Last administered on 01/15/19at 07:25; Start 01/14/19 at 21:30 Acetaminophen (Tylenol) 500 mg PRN Q6HRS PRN PO MILD PAIN / TEMP; Start 01/15/19 at 09:00 Acetaminophen/ Codeine Phosphate (Tylenol #3) 1 tab PRN Q6HRS PRN PO MODERATE TO SEVERE PAIN; Start 01/15/19 at 09:00 Chlordiazepoxide (Librium) 25 mg PRN Q6HRS PRN PO ANXIETY / AGITATION; Start 01/15/19 at 09:00 Labetalol HCl (Normodyne Iv Push) 10 mg PRN Q2HR PRN IVP HYPERTENSION; Start 01/15/19 at 09:00 Metoprolol Tartrate (Lopressor Vial) 5 mg Q6HRS IVP Last administered on 01/15/19at 11:37; Start 01/15/19 at 12:00 Multivitamins 10 ml/Thiamine HCl 100 mg/Folic Acid 1 mg/Sodium Chloride 1,011.2 ml @ 100 mls/ hr DAILY IV Last administered on 01/15/19at 11:37; Start 01/15/19 at 12:00; Stop 01/17/19 at 19:07 Sodium Chloride 1,000 ml @ 100 mls/hr Q10H IV ; Start 01/15/19 at 20:00 Active Scripts Active Ativan (Lorazepam) 0.5 Mg Tablet 0.5 Mg PO BID PRN Allergies Allergies: Coded Allergies: No Known Drug Allergies (Unverified , 07/08/16) Vitals VITALS Vital Signs Date Time Temp Pulse Resp B/P (MAP) Pulse Ox O2 Delivery O2 Flow Rate FiO2 01/15/19 11:37 100 155/98 01/15/19 11:11 98.8 18 98 Room Air 98.8 Labs Labs Laboratory Tests Test 01/14/19 15:20 01/14/19 16:41 01/15/19 09:00 01/15/19 09:30 White Blood Count 4.0 x10^3/uL (4.0-11.0) Red Blood Count 4.68 x10^6/uL (4.30-5.70) Hemoglobin 8.4 g/dL (13.0-17.5) Hematocrit 29.4 % (39.0-53.0) Mean Corpuscular Volume 63 fL (79-100) Mean Corpuscular Hemoglobin 18 pg (25-35) Mean Corpuscular Hemoglobin Concent 29 g/dL (31-37) Red Cell Distribution Width 23.0 % (11.5-14.5) Platelet Count 230 x10^3/uL (140-400) Neutrophils (%) (Auto) 37 % (31-73) Lymphocytes (%) (Auto) 51 % (24-48) Monocytes (%) (Auto) 9 % (0-9) Eosinophils (%) (Auto) 1 % (0-3) Basophils (%) (Auto) 2 % (0-3) Neutrophils # (Auto) 1.5 x10^3/uL (1.8-7.7) Lymphocytes # (Auto) 2.0 x10^3/uL (1.0-4.8) Monocytes # (Auto) 0.4 x10^3/uL (0.0-1.1) Eosinophils # (Auto) 0.0 x10^3/uL (0.0-0.7) Basophils # (Auto) 0.1 x10^3/uL (0.0-0.2) Platelet Estimate Adequate (ADEQUATE) Polychromasia Slight Hypochromasia Marked Anisocytosis Mod Microcytosis Marked Ovalocytes Mod Schistocytes Occ Prothrombin Time 13.5 SEC (11.7-14.0) Prothromb Time International Ratio 1.1 (0.8-1.1) Activated Partial Thromboplast Time 27 SEC (24-38) Sodium Level 144 mmol/L (136-145) Potassium Level 3.5 mmol/L (3.5-5.1) Chloride Level 105 mmol/L (98-107) Carbon Dioxide Level 24 mmol/L (21-32) Anion Gap 15 (6-14) Blood Urea Nitrogen 9 mg/dL (8-26) Creatinine 1.0 mg/dL (0.7-1.3) Estimated GFR (Cockcroft-Gault) 77.6 BUN/Creatinine Ratio 9 (6-20) Glucose Level 91 mg/dL (70-99) Calcium Level 8.2 mg/dL (8.5-10.1) Total Bilirubin 0.6 mg/dL (0.2-1.0) Aspartate Amino Transf (AST/SGOT) 154 U/L (15-37) Alanine Aminotransferase (ALT/SGPT) 94 U/L (16-63) Alkaline Phosphatase 68 U/L (46-116) Creatine Kinase 186 U/L (39-308) Creatine Kinase MB (Mass) 4.0 ng/mL (0.0-3.6) Creatine Kinase MB Relative Index 2.2 % (0-4) Troponin I Quantitative < 0.017 ng/mL (0.000-0.055) QG-Wwh-E-Type Natriuretic Peptide 34 pg/mL (0-124) Total Protein 7.2 g/dL (6.4-8.2) Albumin 3.4 g/dL (3.4-5.0) Albumin/Globulin Ratio 0.9 (1.0-1.7) Lipase 220 U/L (73-393) Ethyl Alcohol Level 268 mg/dL (0-10) Stool Occult Blood Positive (NEG) Urine Collection Type Unknown Urine Color Yellow Urine Clarity Clear Urine pH 8.5 Urine Specific [place] 1.020 Urine Protein Negative mg/dL (NEG-TRACE) Urine Glucose (UA) Negative mg/dL (NEG) Urine Ketones (Stick) Negative mg/dL (NEG) Urine Blood Negative (NEG) Urine Nitrite Negative (NEG) Urine Bilirubin Negative (NEG) Urine Urobilinogen Dipstick 1.0 mg/dL (0.2 mg/dL) Urine Leukocyte Esterase Negative (NEG) Urine RBC 0 /HPF (0-2) Urine WBC Occ /HPF (0-4) Urine Squamous Epithelial Cells Occ /LPF Urine Bacteria 0 /HPF (0-FEW) Urine Mucus Mod /LPF Urine Opiates Screen Neg (NEG) Urine Methadone Screen Neg (NEG) Urine Barbiturates Neg (NEG) Urine Phencyclidine Screen Neg (NEG) Urine Amphetamine/Methamphetamine Neg (NEG) Urine Benzodiazepines Screen Neg (NEG) Urine Cocaine Screen Neg (NEG) Urine Cannabinoids Screen Neg (NEG) Urine Ethyl Alcohol Neg (NEG) Iron Level 23 ug/dL (65-175) Total Iron Binding Capacity 360 ug/dL (250-450) Iron Saturation 6 % (15-34) Laboratory Tests Test 01/14/19 15:20 01/14/19 16:41 01/15/19 09:00 01/15/19 09:30 White Blood Count 4.0 x10^3/uL (4.0-11.0) Red Blood Count 4.68 x10^6/uL (4.30-5.70) Hemoglobin 8.4 g/dL (13.0-17.5) Hematocrit 29.4 % (39.0-53.0) Mean Corpuscular Volume 63 fL (79-100) Mean Corpuscular Hemoglobin 18 pg (25-35) Mean Corpuscular Hemoglobin Concent 29 g/dL (31-37) Red Cell Distribution Width 23.0 % (11.5-14.5) Platelet Count 230 x10^3/uL (140-400) Neutrophils (%) (Auto) 37 % (31-73) Lymphocytes (%) (Auto) 51 % (24-48) Monocytes (%) (Auto) 9 % (0-9) Eosinophils (%) (Auto) 1 % (0-3) Basophils (%) (Auto) 2 % (0-3) Neutrophils # (Auto) 1.5 x10^3/uL (1.8-7.7) Lymphocytes # (Auto) 2.0 x10^3/uL (1.0-4.8) Monocytes # (Auto) 0.4 x10^3/uL (0.0-1.1) Eosinophils # (Auto) 0.0 x10^3/uL (0.0-0.7) Basophils # (Auto) 0.1 x10^3/uL (0.0-0.2) Platelet Estimate Adequate (ADEQUATE) Polychromasia Slight Hypochromasia Marked Anisocytosis Mod Microcytosis Marked Ovalocytes Mod Schistocytes Occ Prothrombin Time 13.5 SEC (11.7-14.0) Prothromb Time International Ratio 1.1 (0.8-1.1) Activated Partial Thromboplast Time 27 SEC (24-38) Sodium Level 144 mmol/L (136-145) Potassium Level 3.5 mmol/L (3.5-5.1) Chloride Level 105 mmol/L (98-107) Carbon Dioxide Level 24 mmol/L (21-32) Anion Gap 15 (6-14) Blood Urea Nitrogen 9 mg/dL (8-26) Creatinine 1.0 mg/dL (0.7-1.3) Estimated GFR (Cockcroft-Gault) 77.6 BUN/Creatinine Ratio 9 (6-20) Glucose Level 91 mg/dL (70-99) Calcium Level 8.2 mg/dL (8.5-10.1) Total Bilirubin 0.6 mg/dL (0.2-1.0) Aspartate Amino Transf (AST/SGOT) 154 U/L (15-37) Alanine Aminotransferase (ALT/SGPT) 94 U/L (16-63) Alkaline Phosphatase 68 U/L (46-116) Creatine Kinase 186 U/L (39-308) Creatine Kinase MB (Mass) 4.0 ng/mL (0.0-3.6) Creatine Kinase MB Relative Index 2.2 % (0-4) Troponin I Quantitative < 0.017 ng/mL (0.000-0.055) BJ-Lgi-Y-Type Natriuretic Peptide 34 pg/mL (0-124) Total Protein 7.2 g/dL (6.4-8.2) Albumin 3.4 g/dL (3.4-5.0) Albumin/Globulin Ratio 0.9 (1.0-1.7) Lipase 220 U/L (73-393) Ethyl Alcohol Level 268 mg/dL (0-10) Stool Occult Blood Positive (NEG) Urine Collection Type Unknown Urine Color Yellow Urine Clarity Clear Urine pH 8.5 Urine Specific [place] 1.020 Urine Protein Negative mg/dL (NEG-TRACE) Urine Glucose (UA) Negative mg/dL (NEG) Urine Ketones (Stick) Negative mg/dL (NEG) Urine Blood Negative (NEG) Urine Nitrite Negative (NEG) Urine Bilirubin Negative (NEG) Urine Urobilinogen Dipstick 1.0 mg/dL (0.2 mg/dL) Urine Leukocyte Esterase Negative (NEG) Urine RBC 0 /HPF (0-2) Urine WBC Occ /HPF (0-4) Urine Squamous Epithelial Cells Occ /LPF Urine Bacteria 0 /HPF (0-FEW) Urine Mucus Mod /LPF Urine Opiates Screen Neg (NEG) Urine Methadone Screen Neg (NEG) Urine Barbiturates Neg (NEG) Urine Phencyclidine Screen Neg (NEG) Urine Amphetamine/Methamphetamine Neg (NEG) Urine Benzodiazepines Screen Neg (NEG) Urine Cocaine Screen Neg (NEG) Urine Cannabinoids Screen Neg (NEG) Urine Ethyl Alcohol Neg (NEG) Iron Level 23 ug/dL (65-175) Total Iron Binding Capacity 360 ug/dL (250-450) Iron Saturation 6 % (15-34) Assessment/Plan Assessment/Plan Iron deficiency anemia- with alcohol abuse and family history of paternal stomach cancer, etiology to be determined. Differential includes: PUD, colon/gastric cancer, IBD, Henyr's, portal hypertension with varices, AVMS, and/or alochol induced boie marrow suppression. Plan serial CBCs alcohol withdrawal precautions with snf alcohol abstinence o/p EGD/colonoscopy Full note dictated PROPECK,EDWIN S MD Jan 15, 2019 14:25
[2019-01-15 14:42] VITALS: BP 157/94
[2019-01-15 19:25] VITALS: BP 151/100
[2019-01-15] MEDS: IV NORMAL SALINE 1000ML BAG 1,000 ML IV SCH (19:36)
[2019-01-15 22:50] VITALS: BP 175/99
--- NOTE | 2019-01-15 23:33 | CONS ---
DATE OF CONSULTATION: 01/15/2019 REASON FOR CONSULTATION: Iron-deficiency anemia and alcohol abuse. HISTORY: A 53-year-old male with past medical history significant for hypertension, alcoholism, seizures, left ankle surgery, admitted to [facility] with atypical chest pain. He has noted increased fatigue and on admission was noted to be anemic with a hemoglobin of 8.4, BUN is 9, creatinine is 1.0. Denies any dysphagia, odynophagia, significant heartburn, melena. States he has had some blood in the stool is noted to be heme positive. No family history of colon cancer is encountered but stomach cancer with his father as he has not undergone previous upper endoscopy and colonoscopy, has no change in weight or appetite. With continued issues, consultation is requested. PAST MEDICAL HISTORY: Hypertension, alcoholism. ALLERGIES: None. MEDICATIONS: As an outpatient, none. FAMILY HISTORY: Significant for stomach cancer and coronary artery disease. SOCIAL HISTORY: Stomach cancer with his father, is a daily alcohol drinker, nonsmoker. PAST SURGICAL HISTORY: As stated. REVIEW OF SYSTEMS: Per records. PHYSICAL EXAMINATION: GENERAL: Reveals a disabled male. VITAL SIGNS: Temperature is 98, pulse is 100, blood pressure is 155/98, respiratory rate is 15. HEENT: Reveals normocephalic, atraumatic head. Pupils and extraocular muscles are not tested. Sclerae anicteric. NECK: Supple. LUNGS: Clear. CARDIOVASCULAR: Reveals an S1, S2 without S3, S4 or appreciable murmur. ABDOMEN: With a soft abdomen, normal bowel sounds, without appreciable hepatosplenomegaly. EXTREMITIES: Reveals no cyanosis, clubbing or edema. LABORATORY STUDIES: Hemoglobin is 8.4, hematocrit 29.4, white count 4.0, platelet count is 230,000. Sodium 144, potassium 3.5, chloride 105, bicarb is 24, BUN 8, creatinine 1.0, glucose 91, calcium is 8.2, iron 23, TIBC is 360, iron saturation is 8. Total bilirubin 0.6, AST of 154, ALT 94, alkaline phosphatase is 58, creatinine kinase is 188. IMPRESSION: Iron-deficiency anemia, the etiology is to be determined. Differential includes colon or gastric cancer, Henry's, peptic ulcer disease, irritable bowel disease, arteriovenous malformations and/or bone marrow suppression with alcohol. Therefore, recommend upper endoscopy and colonoscopy, serial blood counts, alcohol withdrawal precautions and AA assisted for alcohol abstinence. Risks and benefits of procedure including risk of hemorrhage and perforation have been discussed with the patient and spouse were present who are willing to proceed as an outpatient unless clinical status and/or situation changes. EDWIN CALERO MD DR: MIHAI/carmela JOB#: [id number] / [id number]
[2019-01-16 03:30] VITALS: BP 150/97
[2019-01-16 03:37] LABS: HEMATOCRIT 27.9 % (39.0-53.0); HEMOGLOBIN 7.9 g/dL (13.0-17.5)
[2019-01-16] MEDS: METOPROLOL TARTRATE 5 MG/5 ML VIAL. IVP SCH ×2 (06:58→12:33)
[2019-01-16 07:00] VITALS: BP 161/101
[2019-01-16] MEDS: IV NORMAL SALINE 1000ML BAG 1,000 ML IV SCH (07:10)
--- NOTE | 2019-01-16 08:47 | PDOC ---
PROGRESS NOTES Chief Complaint Chief Complaint Accel HTN Sinus tachy Alcoholism - levels 208 Microcytic anemia (hgb 8, MCV 60s) - Differential includes colon or gastric cancer, Henry's, peptic ulcer disease,irritable bowel disease, arteriovenous malformations and/or bone marrow suppression with alcohol Acute blood loss anemia LGIB History of Present Illness History of Present Illness Mr Lozada is a 53 yo male with past medical history significant for hypertension, alcoholism, seizures, left ankle surgery, admitted to [facility] with atypical chest pain. He has noted increased fatigue and on admission was noted to be anemic with a hemoglobin of 8.4, BUN is 9, creatinine is 1.0. Denies any dysphagia, odynophagia, significant heartburn, melena. States he has had some blood in the stool is noted to be heme positive. No family history of colon cancer is encountered but stomach cancer with his father as he has not undergone previous upper endoscopy and colonoscopy, has no change in weight or appetite. BP high, sinus tachy Still shaky, ETOH 208 Interested in AA Signif other at bedside, lots of legit qs FOBT positive, no BRBPR per pt, never happened before. No further bleeding overnight. Hgb 8, BP high, MCV 60s, iron low PLAN: Added GI consult, heme occult positive, microcytic anemia start ferrous PO HH 1 week PPI PO CIWA - outpatient ETOH rehab shashi RN Vitals Vitals Vital Signs Date Time Temp Pulse Resp B/P (MAP) Pulse Ox O2 Delivery O2 Flow Rate FiO2 01/16/19 07:00 98.8 82 16 161/101 (121) 98 Room Air 98.8 Physical Exam General: Alert, Oriented X3, Cooperative, No acute distress Heart: Regular rate, Normal S1, Normal S2 Lungs: Clear, Other (sinus tachy) Abdomen: Normal bowel sounds, Soft Extremities: No clubbing, No cyanosis Skin: No rashes, No breakdown Labs LABS Laboratory Tests Test 01/15/19 09:00 01/15/19 09:30 01/16/19 02:45 Urine Collection Type Unknown Urine Color Yellow Urine Clarity Clear Urine pH 8.5 Urine Specific [place] 1.020 Urine Protein Negative mg/dL (NEG-TRACE) Urine Glucose (UA) Negative mg/dL (NEG) Urine Ketones (Stick) Negative mg/dL (NEG) Urine Blood Negative (NEG) Urine Nitrite Negative (NEG) Urine Bilirubin Negative (NEG) Urine Urobilinogen Dipstick 1.0 mg/dL (0.2 mg/dL) Urine Leukocyte Esterase Negative (NEG) Urine RBC 0 /HPF (0-2) Urine WBC Occ /HPF (0-4) Urine Squamous Epithelial Cells Occ /LPF Urine Bacteria 0 /HPF (0-FEW) Urine Mucus Mod /LPF Urine Opiates Screen Neg (NEG) Urine Methadone Screen Neg (NEG) Urine Barbiturates Neg (NEG) Urine Phencyclidine Screen Neg (NEG) Urine Amphetamine/Methamphetamine Neg (NEG) Urine Benzodiazepines Screen Neg (NEG) Urine Cocaine Screen Neg (NEG) Urine Cannabinoids Screen Neg (NEG) Urine Ethyl Alcohol Neg (NEG) Iron Level 23 ug/dL (65-175) Total Iron Binding Capacity 360 ug/dL (250-450) Iron Saturation 6 % (15-34) Hemoglobin 7.9 g/dL (13.0-17.5) Hematocrit 27.9 % (39.0-53.0) Mean Corpuscular Hemoglobin Concent 28 g/dL (31-37) Assessment and Plan Assessmemt and Plan Problems Medical Problems: (1) Anemia Status: Acute (2) Fatigue Status: Acute (3) Shortness of breath Status: Acute Comment Review of Relevant I have reviewed the following items lana (where applicable) has been applied. Labs Laboratory Tests Test 01/14/19 15:20 01/14/19 16:41 01/15/19 09:00 01/15/19 09:30 White Blood Count 4.0 x10^3/uL (4.0-11.0) Red Blood Count 4.68 x10^6/uL (4.30-5.70) Hemoglobin 8.4 g/dL (13.0-17.5) Hematocrit 29.4 % (39.0-53.0) Mean Corpuscular Volume 63 fL (79-100) Mean Corpuscular Hemoglobin 18 pg (25-35) Mean Corpuscular Hemoglobin Concent 29 g/dL (31-37) Red Cell Distribution Width 23.0 % (11.5-14.5) Platelet Count 230 x10^3/uL (140-400) Neutrophils (%) (Auto) 37 % (31-73) Lymphocytes (%) (Auto) 51 % (24-48) Monocytes (%) (Auto) 9 % (0-9) Eosinophils (%) (Auto) 1 % (0-3) Basophils (%) (Auto) 2 % (0-3) Neutrophils # (Auto) 1.5 x10^3/uL (1.8-7.7) Lymphocytes # (Auto) 2.0 x10^3/uL (1.0-4.8) Monocytes # (Auto) 0.4 x10^3/uL (0.0-1.1) Eosinophils # (Auto) 0.0 x10^3/uL (0.0-0.7) Basophils # (Auto) 0.1 x10^3/uL (0.0-0.2) Platelet Estimate Adequate (ADEQUATE) Polychromasia Slight Hypochromasia Marked Anisocytosis Mod Microcytosis Marked Ovalocytes Mod Schistocytes Occ Prothrombin Time 13.5 SEC (11.7-14.0) Prothromb Time International Ratio 1.1 (0.8-1.1) Activated Partial Thromboplast Time 27 SEC (24-38) Sodium Level 144 mmol/L (136-145) Potassium Level 3.5 mmol/L (3.5-5.1) Chloride Level 105 mmol/L (98-107) Carbon Dioxide Level 24 mmol/L (21-32) Anion Gap 15 (6-14) Blood Urea Nitrogen 9 mg/dL (8-26) Creatinine 1.0 mg/dL (0.7-1.3) Estimated GFR (Cockcroft-Gault) 77.6 BUN/Creatinine Ratio 9 (6-20) Glucose Level 91 mg/dL (70-99) Calcium Level 8.2 mg/dL (8.5-10.1) Total Bilirubin 0.6 mg/dL (0.2-1.0) Aspartate Amino Transf (AST/SGOT) 154 U/L (15-37) Alanine Aminotransferase (ALT/SGPT) 94 U/L (16-63) Alkaline Phosphatase 68 U/L (46-116) Creatine Kinase 186 U/L (39-308) Creatine Kinase MB (Mass) 4.0 ng/mL (0.0-3.6) Creatine Kinase MB Relative Index 2.2 % (0-4) Troponin I Quantitative < 0.017 ng/mL (0.000-0.055) AU-Knc-M-Type Natriuretic Peptide 34 pg/mL (0-124) Total Protein 7.2 g/dL (6.4-8.2) Albumin 3.4 g/dL (3.4-5.0) Albumin/Globulin Ratio 0.9 (1.0-1.7) Lipase 220 U/L (73-393) Ethyl Alcohol Level 268 mg/dL (0-10) Stool Occult Blood Positive (NEG) Urine Collection Type Unknown Urine Color Yellow Urine Clarity Clear Urine pH 8.5 Urine Specific [place] 1.020 Urine Protein Negative mg/dL (NEG-TRACE) Urine Glucose (UA) Negative mg/dL (NEG) Urine Ketones (Stick) Negative mg/dL (NEG) Urine Blood Negative (NEG) Urine Nitrite Negative (NEG) Urine Bilirubin Negative (NEG) Urine Urobilinogen Dipstick 1.0 mg/dL (0.2 mg/dL) Urine Leukocyte Esterase Negative (NEG) Urine RBC 0 /HPF (0-2) Urine WBC Occ /HPF (0-4) Urine Squamous Epithelial Cells Occ /LPF Urine Bacteria 0 /HPF (0-FEW) Urine Mucus Mod /LPF Urine Opiates Screen Neg (NEG) Urine Methadone Screen Neg (NEG) Urine Barbiturates Neg (NEG) Urine Phencyclidine Screen Neg (NEG) Urine Amphetamine/Methamphetamine Neg (NEG) Urine Benzodiazepines Screen Neg (NEG) Urine Cocaine Screen Neg (NEG) Urine Cannabinoids Screen Neg (NEG) Urine Ethyl Alcohol Neg (NEG) Iron Level 23 ug/dL (65-175) Total Iron Binding Capacity 360 ug/dL (250-450) Iron Saturation 6 % (15-34) Test 01/16/19 02:45 Hemoglobin 7.9 g/dL (13.0-17.5) Hematocrit 27.9 % (39.0-53.0) Mean Corpuscular Hemoglobin Concent 28 g/dL (31-37) Laboratory Tests Test 01/15/19 09:00 01/15/19 09:30 01/16/19 02:45 Urine Collection Type Unknown Urine Color Yellow Urine Clarity Clear Urine pH 8.5 Urine Specific [place] 1.020 Urine Protein Negative mg/dL (NEG-TRACE) Urine Glucose (UA) Negative mg/dL (NEG) Urine Ketones (Stick) Negative mg/dL (NEG) Urine Blood Negative (NEG) Urine Nitrite Negative (NEG) Urine Bilirubin Negative (NEG) Urine Urobilinogen Dipstick 1.0 mg/dL (0.2 mg/dL) Urine Leukocyte Esterase Negative (NEG) Urine RBC 0 /HPF (0-2) Urine WBC Occ /HPF (0-4) Urine Squamous Epithelial Cells Occ /LPF Urine Bacteria 0 /HPF (0-FEW) Urine Mucus Mod /LPF Urine Opiates Screen Neg (NEG) Urine Methadone Screen Neg (NEG) Urine Barbiturates Neg (NEG) Urine Phencyclidine Screen Neg (NEG) Urine Amphetamine/Methamphetamine Neg (NEG) Urine Benzodiazepines Screen Neg (NEG) Urine Cocaine Screen Neg (NEG) Urine Cannabinoids Screen Neg (NEG) Urine Ethyl Alcohol Neg (NEG) Iron Level 23 ug/dL (65-175) Total Iron Binding Capacity 360 ug/dL (250-450) Iron Saturation 6 % (15-34) Hemoglobin 7.9 g/dL (13.0-17.5) Hematocrit 27.9 % (39.0-53.0) Mean Corpuscular Hemoglobin Concent 28 g/dL (31-37) Medications Current Medications Multivitamins 10 ml/Thiamine HCl 100 mg/Folic Acid 1 mg/Sodium Chloride 1,011.2 ml @ 1,000.088 mls/hr 1X ONCE IV Last administered on 01/14/19at 15:49; Start 01/14/19 at 15:45; Stop 01/14/19 at 16:45; Status DC Lorazepam (Ativan Inj) 1 mg 1X ONCE IV Last administered on 01/14/19at 15:39; Start 01/14/19 at 15:30; Stop 01/14/19 at 15:31; Status DC Ondansetron HCl (Zofran) 4 mg 1X ONCE IV Last administered on 01/14/19at 15:39; Start 01/14/19 at 15:30; Stop 01/14/19 at 15:31; Status DC Lorazepam (Ativan Inj) 2 mg PRN Q1HR PRN IV For CIWA 8-14; Start 01/14/19 at 17:00 Lorazepam (Ativan Inj) 4 mg PRN Q1HR PRN IV For CIWA 15 or greater; Start 01/14/19 at 17:00 Ondansetron HCl (Zofran) 4 mg PRN Q6HRS PRN IVP NAUSEA/VOMITING 1ST CHOICE Last administered on 01/15/19at 07:25; Start 01/14/19 at 21:30 Acetaminophen (Tylenol) 500 mg PRN Q6HRS PRN PO MILD PAIN / TEMP; Start 01/15/19 at 09:00 Acetaminophen/ Codeine Phosphate (Tylenol #3) 1 tab PRN Q6HRS PRN PO MODERATE TO SEVERE PAIN; Start 01/15/19 at 09:00 Chlordiazepoxide (Librium) 25 mg PRN Q6HRS PRN PO ANXIETY / AGITATION; Start 01/15/19 at 09:00 Labetalol HCl (Normodyne Iv Push) 10 mg PRN Q2HR PRN IVP HYPERTENSION; Start 01/15/19 at 09:00 Metoprolol Tartrate (Lopressor Vial) 5 mg Q6HRS IVP Last administered on 01/16/19at 06:58; Start 01/15/19 at 12:00 Multivitamins 10 ml/Thiamine HCl 100 mg/Folic Acid 1 mg/Sodium Chloride 1,011.2 ml @ 100 mls/ hr DAILY IV Last administered on 01/15/19at 11:37; Start 01/15/19 at 12:00; Stop 01/17/19 at 19:07 Sodium Chloride 1,000 ml @ 100 mls/hr Q10H IV Last administered on 01/16/19at 07:10; Start 01/15/19 at 20:00 Active Scripts Active Ativan (Lorazepam) 0.5 Mg Tablet 0.5 Mg PO BID PRN Vitals/I & O Vital Sign - Last 24 Hours 01/15/19 01/15/19 01/15/19 01/15/19 11:11 11:37 14:42 17:59 Temp 98.8 98.5 98.8 98.5 Pulse 100 100 77 77 Resp 18 18 B/P (MAP) 155/98 (117) 155/98 157/94 (115) 157/94 Pulse Ox 98 97 O2 Delivery Room Air Room Air 01/15/19 01/15/19 01/15/19 01/15/19 19:25 20:12 22:50 23:02 Temp 99.2 98.6 99.2 98.6 Pulse 82 91 90 Resp 20 18 B/P (MAP) 151/100 (117) 175/99 (124) 175/99 Pulse Ox 96 98 O2 Delivery Room Air Room Air Room Air 01/16/19 01/16/19 01/16/19 03:30 06:58 07:00 Temp 99.0 98.8 99.0 98.8 Pulse 79 79 82 Resp 20 16 B/P (MAP) 150/97 (114) 150/97 161/101 (121) Pulse Ox 96 98 O2 Delivery Room Air Room Air Intake and Output 01/15/19 01/15/19 01/16/19 15:00 23:00 07:00 Intake Total 480 ml 240 ml 400 ml Output Total 600 ml 900 ml Balance 480 ml -360 ml -500 ml DYAN SANDOVAL MD Jan 16, 2019 08:47
--- NOTE | 2019-01-16 08:58 | PDOC ---
Subjective: Subjective: Says he gets to leave today, denies obvious bleeding, denies pain, tolerating PO. Objective: Objective: No bleeding per nurse. Vital Signs: Vital Signs Date Time Temp Pulse Resp B/P (MAP) Pulse Ox O2 Delivery O2 Flow Rate FiO2 01/16/19 07:00 98.8 82 16 161/101 (121) 98 Room Air 98.8 Labs: Laboratory Tests Test 01/15/19 09:00 01/15/19 09:30 01/16/19 02:45 Urine Collection Type Unknown Urine Color Yellow Urine Clarity Clear Urine pH 8.5 Urine Specific [place] 1.020 Urine Protein Negative mg/dL Urine Glucose (UA) Negative mg/dL Urine Ketones (Stick) Negative mg/dL Urine Blood Negative Urine Nitrite Negative Urine Bilirubin Negative Urine Urobilinogen Dipstick 1.0 mg/dL Urine Leukocyte Esterase Negative Urine RBC 0 /HPF Urine WBC Occ /HPF Urine Squamous Epithelial Cells Occ /LPF Urine Bacteria 0 /HPF Urine Mucus Mod /LPF Urine Opiates Screen Neg Urine Methadone Screen Neg Urine Barbiturates Neg Urine Phencyclidine Screen Neg Urine Amphetamine/Methamphetamine Neg Urine Benzodiazepines Screen Neg Urine Cocaine Screen Neg Urine Cannabinoids Screen Neg Urine Ethyl Alcohol Neg Iron Level 23 ug/dL Total Iron Binding Capacity 360 ug/dL Iron Saturation 6 % Hemoglobin 7.9 g/dL Hematocrit 27.9 % Mean Corpuscular Hemoglobin Concent 28 g/dL PE: GEN: NAD LUNGS: CTAB HEART: RRR ABD: NABS, S/ND/NT NEURO/PSYCH: A & O 3 A/P: Alcohol intoxication/withdrawal MAIA, +Hemoccult -- Plan for outpt EGD and colonoscopy as previously d/w Dr. Valverde - our office will call to arrange. Will add PO iron and PPI. JESSICA MAYEN Jan 16, 2019 08:58
--- NOTE | 2019-01-16 09:17 | NUR ---
SW consulted for AA referral. Chart reviewed and pt lives at home with family. Pt reports he drinks vodka daily. GI following. SW Phoned PAT team for assessment and tx options. SW will continue to follow.
[2019-01-16] MEDS ORDERED: FERROUS SULFATE 325 MG TABLET. PO SCH (09:30)
[2019-01-16] MEDS ORDERED: PANTOPRAZOLE 40 MG TABLET.DR. PO SCH (09:30)
[2019-01-16 09:36] LABS: CALCIUM 8.3 mg/dL (8.5-10.1); CREATININE 0.8 mg/dL (0.7-1.3); GFR 100.4; MAGNESIUM 1.6 mg/dL (1.8-2.4); POTASSIUM 3.6 mmol/L (3.5-5.1)
[2019-01-16] MEDS: MULTIVIT INFUSN,ADULT 4,VIT K 10 ML, THIAMINE INJ 100 MG, FOLIC ACID INJ 1 MG in IV NOR... IV SCH (10:21)
[2019-01-16] MEDS ORDERED: POLYVINYL ALCOHOL 1.4% OPHTH SOLUTION 15ML BOTTLE. OU PRN (10:45)
[2019-01-16] MEDS ORDERED: MAGNESIUM SULFATE 4GM 100 ML IV ONE (11:00)
[2019-01-16 11:05] VITALS: BP 147/88
[2019-01-16] MEDS ORDERED: cloNIDine HCL 0.1 MG TABLET PO PRN (13:00)
[2019-01-16] MEDS ORDERED: NALT50TA PO (13:05)
[2019-01-16] MEDS ORDERED: PANT40TA77 PO (13:05)
[2019-01-16] MEDS ORDERED: FERR325T72 PO (13:05)
[2019-01-16] MEDS ORDERED: CLON0.1T PO (13:05)
[2019-01-16] MEDS ORDERED: LORA0.5T96 PO (13:05)
--- NOTE | 2019-01-16 14:29 | NUR ---
SW following pt. Pt seen by Allie from PAT team and does not believe ETOH is an issue. Pt is interested in going to therapy for depression. Pt is referred to [facility] as they do treatment for dual dx. Pt is aware to go to his insurance's preferred provider for services. TETE Hall will follow pt for dc planning.
[2019-01-16 15:00] VITALS: BP 146/95
--- NOTE | 2019-01-16 17:04 | NUR ---
Discharge Note: PASQUALE ORELLANA [address] [place] [address] Discharge instructions and discharge home medications reviewed with Patient and a copy given. All questions have been answered and understanding verbalized. The following instructions and handouts were given: alcohol cessation, tachy info, HTN info, GI bleed info, EGD/colonoscopy info, discharge instructions, prescriptions. Discontinued lines and drains: Peripheral IV intact. Patient discharged to Home or Self Care with Spouse via Ambulated at 1704.
--- NOTE | 2019-01-16 21:58 | PDOC3 ---
Discharge Summary Visit Information Date of Admission: Jan 14, 2019 Date of Discharge: Jan 16, 2019 Admitting Diagnosis: Acute lower GI bleed Final Diagnosis Problems Medical Problems: (1) Anemia Status: Acute (2) Fatigue Status: Acute (3) Shortness of breath Status: Acute Brief Hospital Course Allergies Allergies Coded Allergies Type Severity Reaction Last Updated Verified No Known Drug Allergies 07/08/16 No Vital Signs Vital Signs Date Time Temp Pulse Resp B/P (MAP) Pulse Ox O2 Delivery O2 Flow Rate FiO2 01/16/19 15:00 98.7 73 16 146/95 (112) 98 Room Air 98.7 Lab Results Laboratory Tests Test 01/15/19 09:00 01/15/19 09:30 01/16/19 02:45 Urine Collection Type Unknown Urine Color Yellow Urine Clarity Clear Urine pH 8.5 Urine Specific [place] 1.020 Urine Protein Negative mg/dL (NEG-TRACE) Urine Glucose (UA) Negative mg/dL (NEG) Urine Ketones (Stick) Negative mg/dL (NEG) Urine Blood Negative (NEG) Urine Nitrite Negative (NEG) Urine Bilirubin Negative (NEG) Urine Urobilinogen Dipstick 1.0 mg/dL (0.2 mg/dL) Urine Leukocyte Esterase Negative (NEG) Urine RBC 0 /HPF (0-2) Urine WBC Occ /HPF (0-4) Urine Squamous Epithelial Cells Occ /LPF Urine Bacteria 0 /HPF (0-FEW) Urine Mucus Mod /LPF Urine Opiates Screen Neg (NEG) Urine Methadone Screen Neg (NEG) Urine Barbiturates Neg (NEG) Urine Phencyclidine Screen Neg (NEG) Urine Amphetamine/Methamphetamine Neg (NEG) Urine Benzodiazepines Screen Neg (NEG) Urine Cocaine Screen Neg (NEG) Urine Cannabinoids Screen Neg (NEG) Urine Ethyl Alcohol Neg (NEG) Iron Level 23 ug/dL (65-175) Total Iron Binding Capacity 360 ug/dL (250-450) Iron Saturation 6 % (15-34) Hemoglobin 7.9 g/dL (13.0-17.5) Hematocrit 27.9 % (39.0-53.0) Mean Corpuscular Hemoglobin Concent 28 g/dL (31-37) Sodium Level 137 mmol/L (136-145) Potassium Level 3.6 mmol/L (3.5-5.1) Chloride Level 103 mmol/L (98-107) Carbon Dioxide Level 25 mmol/L (21-32) Anion Gap 9 (6-14) Blood Urea Nitrogen 4 mg/dL (8-26) Creatinine 0.8 mg/dL (0.7-1.3) Estimated GFR (Cockcroft-Gault) 100.4 Glucose Level 90 mg/dL (70-99) Calcium Level 8.3 mg/dL (8.5-10.1) Magnesium Level 1.6 mg/dL (1.8-2.4) Laboratory Tests Test 01/16/19 02:45 Hemoglobin 7.9 g/dL (13.0-17.5) Hematocrit 27.9 % (39.0-53.0) Mean Corpuscular Hemoglobin Concent 28 g/dL (31-37) Sodium Level 137 mmol/L (136-145) Potassium Level 3.6 mmol/L (3.5-5.1) Chloride Level 103 mmol/L (98-107) Carbon Dioxide Level 25 mmol/L (21-32) Anion Gap 9 (6-14) Blood Urea Nitrogen 4 mg/dL (8-26) Creatinine 0.8 mg/dL (0.7-1.3) Estimated GFR (Cockcroft-Gault) 100.4 Glucose Level 90 mg/dL (70-99) Calcium Level 8.3 mg/dL (8.5-10.1) Magnesium Level 1.6 mg/dL (1.8-2.4) Brief Hospital Course Mr Lozada is a 53 yo male with past medical history significant for hypertension, alcoholism, seizures, left ankle surgery, admitted to [facility] with atypical chest pain. He has noted increased fatigue and on admission was noted to be anemic with a hemoglobin of 8.4, BUN is 9, creatinine is 1.0. De nies any dysphagia, odynophagia, significant heartburn, melena. States he has had some blood in the stool is noted to be heme positive. No family history of colon cancer is encountered but stomach cancer with his father as he has not undergone previous upper endoscopy and colonoscopy, has no change in weight or appetite. BP high, sinus tachy Still shaky, ETOH 208 Interested in AA Signif other at bedside, lots of legit qs FOBT positive, no BRBPR per pt, never happened before. No further bleeding overnight. Hgb 8, BP high, MCV 60s, iron low Problem list - Accel HTN - started on amlodipine Sinus tachy Alcoholism - levels 208 Microcytic anemia (hgb 8, MCV 60s) - Differential includes colon or gastric cancer, Henry's, peptic ulcer disease,irritable bowel disease, arteriovenous malformations and/or bone marrow suppression with alcohol Acute blood loss anemia LGIB Consults - GI PLAN: Added GI consult, heme occult positive, microcytic anemia start ferrous PO HH 1 week Outpatient colonoscopy and endoscopy PPI PO CIWA - outpatient ETOH rehab dw RN Greater than 30 minutes spent on d/c Discharge Information Condition at Discharge: Improved Follow Up: Weeks (2) Disposition/Orders: D/C to Home Scheduled Clonidine Hcl (Clonidine Hcl) 0.1 Mg Tablet, 0.1 MG PO QID for ETOH withdrawal for 14 Days, #56 For 4 days take 4 times daily, then 3 times daily for 4 days, then twice daily for 4 days, then once daily for 2 days, then prn daily for symptoms Prescribed by: DYAN SANDOVAL MD on 01/16/19 1305 Ferrous Sulfate (Feosol) 325 Mg Tablet, 325 MG PO BIDWMEALS for MAIA for 30 Days, #60 Prescribed by: DYAN SANDOVAL MD on 01/16/19 1305 Naltrexone Hcl (Naltrexone Hcl) 50 Mg Tablet, 1 TAB PO DAILY for ETOH abuse for 30 Days, #30 Ref 0 Take 1 hour prior to planned Alcohol use to reduce cravings Prescribed by: DYAN SANDOVAL MD on 01/16/19 1305 Pantoprazole Sodium (Pantoprazole Sodium ) 40 Mg Tablet.dr, 40 MG PO DAILYAC for GI Bleed for 30 Days, #30 Prescribed by: DYAN SANDOVAL MD on 01/16/19 1305 Scheduled PRN Lorazepam (Ativan) 0.5 Mg Tablet, 0.5 MG PO PRN Q6HRS PRN for ANXIETY / AGITATION for 6 Days, #20 Prescribed by: DYAN SANDOVAL MD on 01/16/19 1305 DYAN SANDOVAL MD Jan 16, 2019 21:58
== END 2019-01-16 17:04 | disposition home or self-care (01) | DRG 378 ==
LOC: ER 15:01 → 2 NORTH 16:56
PROVIDERS: ADMIT Internal Medicine; ATTEND Internal Medicine
DX: K92.2 Gastrointestinal hemorrhage, unspecified (principal); E87.2 Acidosis; F10.239 Alcohol dependence with withdrawal, unspecified; D62 Acute posthemorrhagic anemia; I10 Essential (primary) hypertension; D50.9 Iron deficiency anemia, unspecified; Y90.7 Blood alcohol level of 200-239 mg/100 ml; F10.229 Alcohol dependence with intoxication, unspecified; K92.0 Hematemesis; Z80.0 Family history of malignant neoplasm of digestive organs; Z81.1 Family history of alcohol abuse and dependence; Z82.49 Family history of ischemic heart disease and other diseases of the circulatory system
CPT/HCPCS: 36415; 71045; 80048; 80053; 80307; 81001; 82274; 82553; 83540; 83550; 83690; 83735; 83880; 84484; 85014; 85018; 85025; 85610; 85730; 93005; 96365; 96375; G0480; J2060; J2405; J3475; J3490; J7030; 99285-25; G0378

== ENCOUNTER → 2019-02-14 | Day surgery (SDC) | payer BC ==
[~2019-02-14] MED LIST changes: +CLON0.1T PO; +FERR325T72 PO; +IV RINGERS,LACTATED 1000ML 1,000 ML IV SCH; +LIDOCAINE 2% PF 5 ML VIAL. ONE; +NALT50TA PO; +ONDANSETRON PF 4 MG/2 ML VIAL. IV PRN; +PANT40TA77 PO; +PROCHLORPERAZINE 10 MG/2 ML VIAL. IV PRN; +PROPOFOL 20 ML IV ONE; +PROPOFOL 40 ML IV ONE
--- NOTE | 2019-02-14 07:52 | CONS ---
DATE OF CONSULTATION: 02/14/2019 REASON FOR CONSULTATION: Iron deficiency anemia. HISTORY OF PRESENT ILLNESS: A 53-year-old male with past medical history significant for alcohol-related seizures, tachycardia, shortness of breath is seen with iron deficiency anemia. EGD and colonoscopy are recommended to further assess. Blood counts included a hemoglobin of 8.4, white count of 4, platelet count 230,000. No dysphagia, odynophagia, significant heartburn is encountered. Occasional rectal bleeding is noted. Family history is unrevealing for colon polyps or colon cancer. He is otherwise without additional complaints. PAST MEDICAL HISTORY: Seizures, anemia, shortness of breath. PAST SURGICAL HISTORY: Noncontributory. FAMILY HISTORY: Noncontributory. REVIEW OF SYSTEMS: Per records. PHYSICAL EXAMINATION: GENERAL: Reveals a well-nourished, well-developed male who is alert, cooperative, in no acute distress. VITAL SIGNS: Temperature 97, pulse 99, respiratory rate 18. LUNGS: Clear. CARDIOVASCULAR: S1, S2 without S3, S4 or appreciable murmur. ABDOMEN: Reveals soft abdomen, normal bowel sounds, without appreciable hepatosplenomegaly. EXTREMITIES: No cyanosis, clubbing or edema. IMPRESSION: Iron deficiency anemia, etiology is to be determined. Differential includes peptic ulcer disease, Henry's, gastric or colon cancer, AVMs, diabetes, celiac disease. Risks and benefits of procedure have been discussed previously including risk of hemorrhage and perforation and is willing to proceed at this time. EDWIN CALERO MD DR: MIHAI/carmela JOB#: [id number] / [id number]
[2019-02-14 08:04] VITALS: BP 147/80
[2019-02-14 10:09] LABS: BASO % 1 % (0-3); EOS % 0 % (0-3); HEMATOCRIT 27.3 % (39.0-53.0); HEMOGLOBIN 7.7 g/dL (13.0-17.5); LYMPH # 2.2 x10^3/uL (1.0-4.8); LYMPH % 31 % (24-48); MEAN CORPUSCULAR HEMOGLOBIN 18 pg (25-35); MEAN CORPUSCULAR HGB CONC 28 g/dL (31-37); MEAN CORPUSCULAR VOLUME 63 fL (79-100); MONO # 0.5 x10^3/uL (0.0-1.1); MONO % 8 % (0-9); NEUT # 4.2 x10^3/uL (1.8-7.7); NEUT % 60 % (31-73); PLATELET COUNT 434 x10^3/uL (140-400); RED BLOOD COUNT 4.37 x10^6/uL (4.30-5.70); RED CELL DISTRIBUTION WIDTH 23.1 % (11.5-14.5)
[2019-02-14 11:50] LABS: % BANDS 2 % (0-9); % LYMPHS 10 % (24-48); % MONOS 6 % (0-10); % SEGS 82 % (35-66); ANISOCYTOSIS PRESENT; HYPOCHROMIA PRESENT; MICROCYTOSIS PRESENT; PLT ESTIMATE ADEQUATE (ADEQUATE)
--- NOTE | 2019-02-17 17:06 | PATHOLOGY ---
[facility] Accession Number: [id number] . 01 Material submitted: . stomach - GASTRIC MASS BX . 01 Clinical history: . MAIA . 02 Diagnosis: "Gastric mass", biopsy: - Gastrointestinal stromal tumor (please see comment). (SKM:pit; 02/17/2019) [facility] 02/17/2019 1408 Local . 02 Comment: The prognosis of gastrointestinal stromal tumors of the stomach depend on the size of the tumor and the mitotic rate. The small cluster of tumor cells present in this biopsy show a low mitotic rate (less than 1 mitotic figure per 10/hpf). . This case has also been reviewed by Dr. Ozzie Becerra MD, who agrees with the diagnosis. . The findings in this case were relayed to Natacha at Dr. Zoran Valverde's office on 02/17/2019. (SKM:[facility]; 02/17/2019) . 02 Electronically signed: . Osorio Marr MD, Pathologist NPI- [id number] . 01 Gross description: . The specimen is received in formalin, labeled "Lorenzo Lozada, gastric mass biopsy". Received are five segments of pale clifton soft tissue ranging in size from 0.2 to 0.5 cm in maximum dimensions. The specimen is submitted entirely in cassette A1. (CAA; 02/14/2019) QAC/QAC 02/14/2019 1554 Local . 02 Microscopic: . Sections show a subcutaneous collection of fairly bland spindle to epitheloid cells which contain a moderate amount of cytoplasm. No areas of necrosis are seen. . Less than one mitotic figure is seen per 10/hpf. The tumor cells are positive for CD117. The tumor cells are negative for smooth muscle myosin, S100, AE1/3, synaptophysin, chromogranin, and CD56. (SKM:pit; 02/17/2019) . 02 Pathologist provided ICD-10: D48.1 . 02 CPT . 388489, V23785, W80491 Specimen Comment: A courtesy copy of this report has been sent to [phone], [phone] Specimen Comment: [id number] Specimen Comment: Report sent to / DR MONTEMAYOR Performed at: 01 [facility] [address], [place] [id number] MD Bao Sood MD Phone: [phone] Performed at: 02 [facility] [address], [place] [id number] MD Fidencio Hook MD Phone: [phone]
== END ==
LOC: ENDOS 06:08
PROVIDERS: ATTEND Internal Medicine Gastroenterology
DX: D50.9 Iron deficiency anemia, unspecified (principal); K57.30 Diverticulosis of large intestine without perforation or abscess without bleeding; K31.89 Other diseases of stomach and duodenum; K64.0 First degree hemorrhoids; D64.9 Anemia, unspecified; Z80.0 Family history of malignant neoplasm of digestive organs
CPT/HCPCS: 36415; 43239; 45378; 85025; 88305; 88341; 88342; J2001; J2704; 85007

== ENCOUNTER → 2019-03-01 | Outpatient (CLI) | payer BC ==
[2019-02-14 08:04] VITALS: BP 147/80
[~2019-03-01] MED LIST changes: +CONTRAST GIVEN. MC PRN; +IOHEXOL 240 MG/ML 50ML VIAL. PO ONE; +IOHEXOL 300 MG/ML 100ML VIAL. IV ONE; -IV RINGERS,LACTATED 1000ML 1,000 ML IV SCH; -LIDOCAINE 2% PF 5 ML VIAL. ONE; -ONDANSETRON PF 4 MG/2 ML VIAL. IV PRN; -PROCHLORPERAZINE 10 MG/2 ML VIAL. IV PRN; -PROPOFOL 20 ML IV ONE; -PROPOFOL 40 ML IV ONE
--- NOTE | 2019-03-01 16:30 | RAD ---
CT abdomen and pelvis with contrast History: Gastric mass, , Technique: Computed tomographic images of abdomen and pelvis were performed. Omnipaque 300 nonionic contrast material was administered intravenously without incident.: 75 CC PQRS Compliance Statement: One or more of the following individualized dose reduction techniques were utilized for this examination: 1. Automated exposure control 2. Adjustment of the mA and/or kV according to patient size 3. Use of iterative reconstruction technique Comparison: None FINDINGS: Lung bases are clear. Homogeneous decreased attenuation of the liver. Focal hyperintense lesion measuring 11 x 18 mm in segment 2 is present. Gallbladder unremarkable Spleen unremarkable Pancreas unremarkable Adrenal glands unremarkable Kidneys unremarkable Mild diverticuli are seen. No evidence of acute diverticulitis. Bladder is decompressed and poorly evaluated. Prostate unremarkable Lesser curvature of the stomach there is a pedunculated appearing mass in the gastric wall measuring 51 x 39 mm There is a vertical abnormal appearing fracture seen in the L2 vertebrae. IMPRESSION: 51 x 39 mm lesser curvature gastric mass with no evidence of extension into the lesser sac or perigastric tissues. Segment 2 liver mass measuring up to 18 mm suspicious for metastasis. MRI with and without contrast may be of benefit for further characterization. 10 mm gastroesophageal lymph node suspicious for pathologic lymphadenopathy. L2 vertical vertebral fracture with no definite underlying mass. MRI lumbar spine may be of benefit for further clarification. Electronically signed by: Pako Hernández MD (03/01/2019 4:27 PM) [facility]
== END | disposition home or self-care (01) ==
LOC: CT 09:31
PROVIDERS: ATTEND Internal Medicine Gastroenterology
DX: R19.09 Other intra-abdominal and pelvic swelling, mass and lump (principal); R16.0 Hepatomegaly, not elsewhere classified; S32.029A Unspecified fracture of second lumbar vertebra, initial encounter for closed fracture; X58.XXXA Exposure to other specified factors, initial encounter; Y93.89 Activity, other specified; Y92.89 Other specified places as the place of occurrence of the external cause; Y99.8 Other external cause status
CPT/HCPCS: 74177; Q9966; Q9967

== ENCOUNTER 2019-03-20 09:08 | Inpatient (IN) | payer BC ==
[2019-03-20] VITALS (9 sets, daily range): BP systolic 161–191; BP diastolic 93–104
[~2019-03-20] VITALS: Ht 175.3 cm; Wt 87.1 kg
[~2019-03-20 09:08] MED LIST changes: -CONTRAST GIVEN. MC PRN; +HYDROmorphone 2 MG/ML VIAL IV PRN; -IOHEXOL 240 MG/ML 50ML VIAL. PO ONE; -IOHEXOL 300 MG/ML 100ML VIAL. IV ONE; +IV RINGERS,LACTATED 1000ML 1,000 ML IV SCH; +LIDOCAINE 1% PF 2 ML VIAL. ID PRN; +MORPHINE SULFATE 2 MG/ML VIAL. IV PRN; +ONDANSETRON PF 4 MG/2 ML VIAL. IV PRN; +PROCHLORPERAZINE 10 MG/2 ML VIAL. IV PRN; +cefOXitin SODIUM IV Push 2 GM VIAL. IVP PRN; +fentaNYL PF VIAL 100 MCG/2 ML VIAL IV PRN
[2019-03-20] MEDS ORDERED: ONDANSETRON PF 4 MG/2 ML VIAL. ONE (09:21)
[2019-03-20] MEDS ORDERED: LIDOCAINE 2% PF 5 ML VIAL. ONE (09:21)
[2019-03-20] MEDS ORDERED: PROPOFOL 20 ML IV ONE ×2 (09:21→14:06)
[2019-03-20] MEDS ORDERED: ROCURONIUM 50 MG/5 ML VIAL. ONE ×2 (09:21→12:33)
[2019-03-20] MEDS ORDERED: DEXAMETHASONE SOD PHOS 4 MG/ML VIAL ONE ×2 (09:21→11:18)
[2019-03-20] MEDS ORDERED: MIDAZOLAM HCL/PF 2 MG/2 ML VIAL. ONE (09:22)
[2019-03-20] MEDS ORDERED: fentaNYL PF VIAL 100 MCG/2 ML VIAL ONE ×2 (09:22→11:38)
[2019-03-20] MEDS ORDERED: SEVOFLURANE 61 TO 120 MINUTES. IH ONE (09:43)
[2019-03-20] MEDS ORDERED: BUPIVACAINE-EPI 0.5%-1:200000 MPF 30 ML VIAL. ONE (10:14)
[2019-03-20 10:25] LABS: BASO # 0.1 x10^3/uL (0.0-0.2); BASO % 4 % (0-3); EOS % 1 % (0-3); HEMATOCRIT 30.1 % (39.0-53.0); HEMOGLOBIN 8.6 g/dL (13.0-17.5); LYMPH # 0.9 x10^3/uL (1.0-4.8); LYMPH % 33 % (24-48); MEAN CORPUSCULAR HEMOGLOBIN 18 pg (25-35); MEAN CORPUSCULAR HGB CONC 29 g/dL (31-37); MEAN CORPUSCULAR VOLUME 63 fL (79-100); MONO # 0.5 x10^3/uL (0.0-1.1); MONO % 18 % (0-9); NEUT # 1.2 x10^3/uL (1.8-7.7); NEUT % 44 % (31-73); PLATELET COUNT 150 x10^3/uL (140-400); RED CELL DISTRIBUTION WIDTH 24.4 % (11.5-14.5); WHITE BLOOD COUNT 2.8 x10^3/uL (4.0-11.0)
--- NOTE | 2019-03-20 10:32 | EKG ---
[facility] [address] [place] [address] Test Date: 2019-03-20 Test Time: 10:05:35 Pat Name: PASQUALE ORELLANA Department: Room: [place] [address] Gender: M [employer] Trimmer: : [id number] Requested By: SOCRATES VALVERDE Order Number: [id number] Reading MD: Measurements Intervals Golden Rate: 91 P: -15 MN: 160 QRS: -18 QRSD: 92 T: 26 QT: 380 QTc: 469 Interpretive Statements SINUS RHYTHM LEFTWARD AXIS NO SPECIFIC ECG ABNORMALITIES RI6.01 Compared to ECG 01/14/2019 15:17:07 T-wave abnormality no longer present Prolonged QT interval no longer present
[2019-03-20 10:38] LABS: CALCIUM 8.5 mg/dL (8.5-10.1); GFR 77.6; POTASSIUM 3.4 mmol/L (3.5-5.1)
[2019-03-20 10:46] LABS: ALBUMIN 3.8 g/dL (3.4-5.0); TOTAL BILIRUBIN 0.4 mg/dL (0.2-1.0); TOTAL PROTEIN 7.5 g/dL (6.4-8.2)
--- NOTE | 2019-03-20 10:58 | PDOC ---
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 TO OR for laparoscopic versus open partial gastrectomy, liver biopsy. R/R/B/A d/w pt and pt's supportive family. Risks, including, but not limited to: bleeding, infection, damage to surrounding structures, risk of anesthesia, risk of open, risk of . They appear to understand, their questions are answered and they elect to proceed. Low WBC noted, previously WBC has been as low as 4. Will need heme onc consult pending pathology afterwards. Office note H&P reviewed and unchanged. Vital Signs Vital Signs Date Time Temp Pulse Resp B/P (MAP) Pulse Ox O2 Delivery O2 Flow Rate FiO2 03/20/19 09:51 97.4 103 18 160/101 98 Room Air 97.4 Labs Laboratory Tests Test 03/20/19 09:37 White Blood Count 2.8 x10^3/uL (4.0-11.0) Red Blood Count 4.80 x10^6/uL (4.30-5.70) Hemoglobin 8.6 g/dL (13.0-17.5) Hematocrit 30.1 % (39.0-53.0) Mean Corpuscular Volume 63 fL (79-100) Mean Corpuscular Hemoglobin 18 pg (25-35) Mean Corpuscular Hemoglobin Concent 29 g/dL (31-37) Red Cell Distribution Width 24.4 % (11.5-14.5) Platelet Count 150 x10^3/uL (140-400) Neutrophils (%) (Auto) 44 % (31-73) Lymphocytes (%) (Auto) 33 % (24-48) Monocytes (%) (Auto) 18 % (0-9) Eosinophils (%) (Auto) 1 % (0-3) Basophils (%) (Auto) 4 % (0-3) Neutrophils # (Auto) 1.2 x10^3/uL (1.8-7.7) Lymphocytes # (Auto) 0.9 x10^3/uL (1.0-4.8) Monocytes # (Auto) 0.5 x10^3/uL (0.0-1.1) Eosinophils # (Auto) 0.0 x10^3/uL (0.0-0.7) Basophils # (Auto) 0.1 x10^3/uL (0.0-0.2) Laboratory Tests Test 03/20/19 09:37 White Blood Count 2.8 x10^3/uL (4.0-11.0) Red Blood Count 4.80 x10^6/uL (4.30-5.70) Hemoglobin 8.6 g/dL (13.0-17.5) Hematocrit 30.1 % (39.0-53.0) Mean Corpuscular Volume 63 fL (79-100) Mean Corpuscular Hemoglobin 18 pg (25-35) Mean Corpuscular Hemoglobin Concent 29 g/dL (31-37) Red Cell Distribution Width 24.4 % (11.5-14.5) Platelet Count 150 x10^3/uL (140-400) Neutrophils (%) (Auto) 44 % (31-73) Lymphocytes (%) (Auto) 33 % (24-48) Monocytes (%) (Auto) 18 % (0-9) Eosinophils (%) (Auto) 1 % (0-3) Basophils (%) (Auto) 4 % (0-3) Neutrophils # (Auto) 1.2 x10^3/uL (1.8-7.7) Lymphocytes # (Auto) 0.9 x10^3/uL (1.0-4.8) Monocytes # (Auto) 0.5 x10^3/uL (0.0-1.1) Eosinophils # (Auto) 0.0 x10^3/uL (0.0-0.7) Basophils # (Auto) 0.1 x10^3/uL (0.0-0.2) SOCRATES VALVERDE MD Mar 20, 2019 10:58
[2019-03-20 12:07] LABS: % BANDS 1 % (0-9); % EOS 1 % (0-5); % LYMPHS 45 % (24-48); % MONOS 11 % (0-10); % SEGS 42 % (35-66); PLT ESTIMATE ADEQUATE (ADEQUATE)
[2019-03-20 12:08] LABS: ANISOCYTOSIS PRESENT; HYPOCHROMIA PRESENT; MICROCYTOSIS PRESENT
[2019-03-20] MEDS ORDERED: SURGICEL HEMOSTAT 4X8 EACH. ONE (12:24)
[2019-03-20] MEDS ORDERED: NEOSTIGMINE METHYLSULFATE 5 MG/5 ML SYRINGE. ONE (12:25)
[2019-03-20] MEDS ORDERED: ePHEDrine PF IN SALINE 50 MG/10 ML SYRINGE. IV ONE (12:25)
[2019-03-20] MEDS ORDERED: PHENYLEPHRINE in 0.9% NACL PF 1 MG/10 ML SYRINGE. IV ONE (12:25)
[2019-03-20] MEDS ORDERED: GLYCOPYRROLATE 1 MG/5 ML VIAL. ONE (12:25)
[2019-03-20] MEDS ORDERED: cefOXitin SODIUM IV Push 2 GM VIAL. IVP ONE (12:45)
[2019-03-20] MEDS ORDERED: ALBUMIN HUMAN 5% 500 ML IV ONE (13:05)
[2019-03-20] MEDS ORDERED: DESFLURANE > 120 MINUTES IH ONE (14:11)
[2019-03-20] MEDS ORDERED: 0.9 % SODIUM CHLORIDE 10 ML DISP.SYRIN. IV PRN (14:30)
[2019-03-20] MEDS ORDERED: NALOXONE 0.4 MG/ML VIAL. IV PRN (14:30)
--- NOTE | 2019-03-20 14:48 | PDOC4 ---
OPERATIVE NOTE Date: Date: Mar 20, 2019 Pre-Op Diagnosis: GIST tumor of the stomach, liver mass Post-Op Diagnosis: same Procedure Performed: Laparoscopic partial gastrectomy, liver biopsy Surgeon: Hank Valverde Asst: Dr. Idris Banerjee Anesthesia Type: GETA plus local Blood Loss: 50 Specimans Obtained: GIST tumor (lesser curve of stomach, benign appearance with ulcers, good margins), liver biopsy c/w steatosis Findings: as above in specimen, fatty liver (hard, mild nodularity, yellowish color), normal gallbladder, no other pathology noted. Complications: none Operative Note: After obtaining informed consent, patient was taken to OR, induced under GETA and prepped in the usual fashion. 5 mm ports placed LUQ, epigastric and umbilical, 12 port placed LUQ, all under laparoscopic guidance. Abdominal cavity was explored and noted as above. Ligasure device was used to open the stomach on the anterior wall. GIST tumor readily identified and exposed. The ligasure was used to excise the mass completely. This was placed in bag, delivered and sent to pathology for evaluation. Pathology demonstrated good margins. Gastrotomy with then repaired longitudinally with continuous 3 0 PDS submucosal and 3 0 vicryl continuous seromuscular. Air was placed via NGT without any evidence of air leak. Liver was evaluated. No obvious mass noted readily by visualization, but hard area noted posterior segment two. This was excised with ligasure. Fairly minimal bleeding secondary to fatty liver. Hemostasis obtained with surgicel. Biopsy was sent to pathology, which demonstrated no mass, but steatosis, severe. No evidence of bleeding or pathology noted. 19 KEYA drain was placed RUQ incision and left in area of gastrotomy and secured with 3 0 nylon. Ports removed without bleeding. Fascia of LUQ port site (which was enlarge to remove mass) was repaired with 0 looped PDS. Skin repaired with 3 0 vicryl and 4 0 monocryl. Dressing placed. Patient tolerated procedure well and sent to PACU in stable condition. All counts correct. Wound class is 3. SOCRATES VALVERDE MD Mar 20, 2019 14:48
[2019-03-20] MEDS: IV RINGERS,LACTATED 1000ML 1,000 ML IV SCH ×2 (15:03→22:34)
[2019-03-20] MEDS: fentaNYL PF VIAL 100 MCG/2 ML VIAL IV PRN ×2 (15:37→16:48)
[2019-03-20] MEDS: MORPHINE SULFATE/PF 30 ML IV PRN (15:38)
[2019-03-20] MEDS: IV NORMAL SALINE 1000ML BAG 1,000 ML IV SCH (19:00)
[2019-03-20] MEDS: ONDANSETRON PF 4 MG/2 ML VIAL. IVP PRN (19:42)
[2019-03-20] MEDS: FAMOTIDINE 20 MG/2 ML VIAL IVP SCH (21:40)
[2019-03-20] MEDS: METOPROLOL TARTRATE 5 MG/5 ML VIAL. IVP PRN (23:31)
--- NOTE | 2019-03-20 23:31 | NUR ---
Pt BP continuously elevated this shift. SBP began in the 160s at 1900 and went up to the 190s by 2300. Call placed to Dr. Govea at 2215 to notify of increased BP. Received call back at approx 2315. Notified MD of elevated BP, current heart rate in the 110s. Received order for 5mg Metoprolol PRN IVP q6hrs, Vasotec 2.5 mg Q6hrs for SBP>160. When order entered into system, received message that the facility is currently out of Vasotec. Metoprolol order entered into system and administered per PRN order. Will pass on and continue to monitor.
[2019-03-21] VITALS (22 sets, daily range): BP systolic 150–172; BP diastolic 85–104
[2019-03-21 06:39] LABS: BASO % 0 % (0-3); EOS % 0 % (0-3); HEMOGLOBIN 7.6 g/dL (13.0-17.5); LYMPH % 27 % (24-48); MEAN CORPUSCULAR HEMOGLOBIN 18 pg (25-35); MEAN CORPUSCULAR HGB CONC 28 g/dL (31-37); MEAN CORPUSCULAR VOLUME 63 fL (79-100); MONO # 0.9 x10^3/uL (0.0-1.1); MONO % 11 % (0-9); NEUT # 4.8 x10^3/uL (1.8-7.7); NEUT % 62 % (31-73); PLATELET COUNT 89 x10^3/uL (140-400); RED BLOOD COUNT 4.29 x10^6/uL (4.30-5.70); RED CELL DISTRIBUTION WIDTH 23.2 % (11.5-14.5); WHITE BLOOD COUNT 7.7 x10^3/uL (4.0-11.0)
[2019-03-21 06:46] LABS: CALCIUM 8.3 mg/dL (8.5-10.1); CREATININE 0.8 mg/dL (0.7-1.3); GFR 100.4; POTASSIUM 3.9 mmol/L (3.5-5.1)
[2019-03-21] MEDS: ENOXAPARIN 40 MG/0.4 ML SYRINGE. SQ SCH (07:33)
[2019-03-21] MEDS: FAMOTIDINE 20 MG/2 ML VIAL IVP SCH ×2 (07:33→20:37)
[2019-03-21] MEDS: ONDANSETRON PF 4 MG/2 ML VIAL. IVP PRN ×2 (07:36→19:31)
--- NOTE | 2019-03-21 08:38 | PDOC ---
SURGICAL PROGRESS NOTE Subjective Pt with c/o LUQ incisional pain, no N/V, NGT in place. Pt tremulous. Pt with persistent hypoxia, HTN Vital Signs Vital Signs Date Time Temp Pulse Resp B/P (MAP) Pulse Ox O2 Delivery O2 Flow Rate FiO2 03/21/19 06:00 97 21 172/100 (124) 93 Nasal Cannula 6.0 03/21/19 04:00 98.1 98.1 I&O Intake and Output 03/21/19 07:00 Intake Total 4206.9 ml Output Total 3375 ml Balance 831.9 ml Intake IV Total 4206.9 ml Output Urine Total 2395 ml Gastric Drainage Total 520 ml Drainage Total 410 ml Estimated Blood Loss 50 ml PATIENT HAS A MENDEZ: Yes General: Alert, Oriented X3, Cooperative, mild distress HEENT: Atraumatic Lungs: Normal air movement Abdomen: Soft, No tenderness Labs Laboratory Tests Test 03/20/19 09:37 03/21/19 05:55 White Blood Count 2.8 x10^3/uL (4.0-11.0) 7.7 x10^3/uL (4.0-11.0) Red Blood Count 4.80 x10^6/uL (4.30-5.70) 4.29 x10^6/uL (4.30-5.70) Hemoglobin 8.6 g/dL (13.0-17.5) 7.6 g/dL (13.0-17.5) Hematocrit 30.1 % (39.0-53.0) 27.0 % (39.0-53.0) Mean Corpuscular Volume 63 fL (79-100) 63 fL (79-100) Mean Corpuscular Hemoglobin 18 pg (25-35) 18 pg (25-35) Mean Corpuscular Hemoglobin Concent 29 g/dL (31-37) 28 g/dL (31-37) Red Cell Distribution Width 24.4 % (11.5-14.5) 23.2 % (11.5-14.5) Platelet Count 150 x10^3/uL (140-400) 89 x10^3/uL (140-400) Neutrophils (%) (Auto) 44 % (31-73) 62 % (31-73) Lymphocytes (%) (Auto) 33 % (24-48) 27 % (24-48) Monocytes (%) (Auto) 18 % (0-9) 11 % (0-9) Eosinophils (%) (Auto) 1 % (0-3) 0 % (0-3) Basophils (%) (Auto) 4 % (0-3) 0 % (0-3) Neutrophils # (Auto) 1.2 x10^3/uL (1.8-7.7) 4.8 x10^3/uL (1.8-7.7) Lymphocytes # (Auto) 0.9 x10^3/uL (1.0-4.8) 2.0 x10^3/uL (1.0-4.8) Monocytes # (Auto) 0.5 x10^3/uL (0.0-1.1) 0.9 x10^3/uL (0.0-1.1) Eosinophils # (Auto) 0.0 x10^3/uL (0.0-0.7) 0.0 x10^3/uL (0.0-0.7) Basophils # (Auto) 0.1 x10^3/uL (0.0-0.2) 0.0 x10^3/uL (0.0-0.2) Segmented Neutrophils % 42 % (35-66) Band Neutrophils % 1 % (0-9) Lymphocytes % 45 % (24-48) Monocytes % 11 % (0-10) Eosinophils % 1 % (0-5) Platelet Estimate Adequate (ADEQUATE) Hypochromasia Present Anisocytosis Present Microcytosis Present Sodium Level 143 mmol/L (136-145) 139 mmol/L (136-145) Potassium Level 3.4 mmol/L (3.5-5.1) 3.9 mmol/L (3.5-5.1) Chloride Level 104 mmol/L (98-107) 101 mmol/L (98-107) Carbon Dioxide Level 25 mmol/L (21-32) 28 mmol/L (21-32) Anion Gap 14 (6-14) 10 (6-14) Blood Urea Nitrogen 11 mg/dL (8-26) 12 mg/dL (8-26) Creatinine 1.0 mg/dL (0.7-1.3) 0.8 mg/dL (0.7-1.3) Estimated GFR (Cockcroft-Gault) 77.6 100.4 BUN/Creatinine Ratio 11 (6-20) Glucose Level 101 mg/dL (70-99) 121 mg/dL (70-99) Calcium Level 8.5 mg/dL (8.5-10.1) 8.3 mg/dL (8.5-10.1) Total Bilirubin 0.4 mg/dL (0.2-1.0) Aspartate Amino Transf (AST/SGOT) 58 U/L (15-37) Alanine Aminotransferase (ALT/SGPT) 37 U/L (16-63) Alkaline Phosphatase 53 U/L (46-116) Total Protein 7.5 g/dL (6.4-8.2) Albumin 3.8 g/dL (3.4-5.0) Albumin/Globulin Ratio 1.0 (1.0-1.7) Laboratory Tests Test 03/20/19 09:37 03/21/19 05:55 White Blood Count 2.8 x10^3/uL (4.0-11.0) 7.7 x10^3/uL (4.0-11.0) Red Blood Count 4.80 x10^6/uL (4.30-5.70) 4.29 x10^6/uL (4.30-5.70) Hemoglobin 8.6 g/dL (13.0-17.5) 7.6 g/dL (13.0-17.5) Hematocrit 30.1 % (39.0-53.0) 27.0 % (39.0-53.0) Mean Corpuscular Volume 63 fL (79-100) 63 fL (79-100) Mean Corpuscular Hemoglobin 18 pg (25-35) 18 pg (25-35) Mean Corpuscular Hemoglobin Concent 29 g/dL (31-37) 28 g/dL (31-37) Red Cell Distribution Width 24.4 % (11.5-14.5) 23.2 % (11.5-14.5) Platelet Count 150 x10^3/uL (140-400) 89 x10^3/uL (140-400) Neutrophils (%) (Auto) 44 % (31-73) 62 % (31-73) Lymphocytes (%) (Auto) 33 % (24-48) 27 % (24-48) Monocytes (%) (Auto) 18 % (0-9) 11 % (0-9) Eosinophils (%) (Auto) 1 % (0-3) 0 % (0-3) Basophils (%) (Auto) 4 % (0-3) 0 % (0-3) Neutrophils # (Auto) 1.2 x10^3/uL (1.8-7.7) 4.8 x10^3/uL (1.8-7.7) Lymphocytes # (Auto) 0.9 x10^3/uL (1.0-4.8) 2.0 x10^3/uL (1.0-4.8) Monocytes # (Auto) 0.5 x10^3/uL (0.0-1.1) 0.9 x10^3/uL (0.0-1.1) Eosinophils # (Auto) 0.0 x10^3/uL (0.0-0.7) 0.0 x10^3/uL (0.0-0.7) Basophils # (Auto) 0.1 x10^3/uL (0.0-0.2) 0.0 x10^3/uL (0.0-0.2) Segmented Neutrophils % 42 % (35-66) Band Neutrophils % 1 % (0-9) Lymphocytes % 45 % (24-48) Monocytes % 11 % (0-10) Eosinophils % 1 % (0-5) Platelet Estimate Adequate (ADEQUATE) Hypochromasia Present Anisocytosis Present Microcytosis Present Sodium Level 143 mmol/L (136-145) 139 mmol/L (136-145) Potassium Level 3.4 mmol/L (3.5-5.1) 3.9 mmol/L (3.5-5.1) Chloride Level 104 mmol/L (98-107) 101 mmol/L (98-107) Carbon Dioxide Level 25 mmol/L (21-32) 28 mmol/L (21-32) Anion Gap 14 (6-14) 10 (6-14) Blood Urea Nitrogen 11 mg/dL (8-26) 12 mg/dL (8-26) Creatinine 1.0 mg/dL (0.7-1.3) 0.8 mg/dL (0.7-1.3) Estimated GFR (Cockcroft-Gault) 77.6 100.4 BUN/Creatinine Ratio 11 (6-20) Glucose Level 101 mg/dL (70-99) 121 mg/dL (70-99) Calcium Level 8.5 mg/dL (8.5-10.1) 8.3 mg/dL (8.5-10.1) Total Bilirubin 0.4 mg/dL (0.2-1.0) Aspartate Amino Transf (AST/SGOT) 58 U/L (15-37) Alanine Aminotransferase (ALT/SGPT) 37 U/L (16-63) Alkaline Phosphatase 53 U/L (46-116) Total Protein 7.5 g/dL (6.4-8.2) Albumin 3.8 g/dL (3.4-5.0) Albumin/Globulin Ratio 1.0 (1.0-1.7) Problem List s/p lap excision of GIST tumor suspect pt is in withdrawal. D/w pt and pt's supportive spouse in ICU. Appreciate pulm and int medicine and defer to them. Cont NGT and supportive care. Pt needed surgery secondary to persistent bleeding. SOCRATES VALVERDE MD Mar 21, 2019 08:38
[2019-03-21] MEDS: IV RINGERS,LACTATED 1000ML 1,000 ML IV SCH ×3 (09:33→21:57)
[2019-03-21] MEDS: IV NORMAL SALINE 1000ML BAG 1,000 ML IV SCH (12:15)
--- NOTE | 2019-03-21 12:55 | HP ---
ADMIT DATE: 03/20/2019 CHIEF COMPLAINT: Status post resection of gastrointestinal stromal tumor. HISTORY OF PRESENT ILLNESS: The patient is a pleasant middle-aged male, who underwent resection of a gastrointestinal stromal tumor yesterday with Dr. Houston. We have been requested for postoperative medical evaluation and treatment of comorbidities. PAST MEDICAL HISTORY: Alcohol issues, hypertension, anxiety, and gastroesophageal reflux disease. ALLERGIES: None. FAMILY HISTORY: Hypertension. SOCIAL HISTORY: He does not take drugs or smoke. He drinks. MEDICATIONS: Reviewed, please refer to the MRAD. REVIEW OF SYSTEMS: GENERAL: No history of weight change, weakness, or fever. SKIN: No bruising, hair changes, or rashes. EYES: No blurred, double, or loss of vision. NOSE AND THROAT: No history of nosebleeds, hoarseness, or sore throat. HEART: No history of palpitations, chest pain, or shortness of breath on exertion. LUNGS: Denies cough, hemoptysis, wheezing, or shortness of breath. GASTROINTESTINAL: He complains of abdominal incisional pain. GENITOURINARY: No history of frequency, urgency, hesitancy, or nocturia. NEUROLOGIC: Denies history of numbness, tingling, tremor, or weakness. PSYCHIATRIC: No history of panic, anxiety, or depression. ENDOCRINE: No history of heat or cold intolerance, polyuria, or polydipsia. EXTREMITIES: Denies muscle weakness, joint pain, pain on walking, or stiffness. PHYSICAL EXAMINATION: VITALS: Within normal limits and are stable. GENERAL: No apparent distress. Alert and oriented. HEENT: Normal cephalic, atraumatic. External auditory canals are patent. EYES: Extraocular muscles are intact. Pupils are equally round and reactive to light and accommodation. MUSKULOSKELETAL: Well developed, well nourished, good range of motion. ENDOCRINE: No thyromegaly was palpated. LYMPHATICS: No cervical chain or axillary nodes were noted. HEMATOPOIETIC: No bruising. NECK: Supple, no JVD, no thyromegaly was noted. LUNGS: Clear to auscultation in all lung reno without rhonchi or wheezing. HEART: RRR, S1, S2 present. Peripheral pulses intact, no obvious murmurs were noted. ABDOMEN: He has got clean, dry, and intact dressing. He has got several trocar sites. There is a Harrison-Fulton drain in the right lower quadrant. EXTREMITIES: Without any cyanosis, clubbing, or edema. Pedal pulses intact, Homans sign is negative. NEUROLOGIC: Normal speech, normal tone; A and O x3; moves all extremities; no obvious focal deficits. PSYCHIATRIC: Normal affect, normal mood, stable. SKIN: No ulcerations or rashes, good skin turgor, no jaundice. VASCULAR: Good capillary refill, neurovascular bundle appears to be intact. LABORATORY DATA: White count 7, hemoglobin 7.6, platelets 89. ASSESSMENT AND PLAN: Postoperative day #1 resection of gastrointestinal stromal tumor. For now, continue Intensive Care Unit monitoring, wound care, home medication, deep vein thrombosis prophylaxis, full code, trend labs. PROGNOSIS: Guarded. EMILY HOUSTON DO DR: KATE/carmela JOB#: [id number] / [id number]
--- NOTE | 2019-03-21 13:54 | PDOC ---
PULMONARY PROGRESS NOTES Vitals Vital Signs Date Time Temp Pulse Resp B/P (MAP) Pulse Ox O2 Delivery O2 Flow Rate FiO2 03/21/19 13:00 94 157/93 (114) 88 Nasal Cannula 6.0 03/21/19 12:00 98.1 98.1 03/21/19 11:00 21 Lungs: Clear, Other Cardiovascular: S1, S2 Labs Laboratory Tests Test 03/20/19 09:37 03/21/19 05:55 White Blood Count 2.8 x10^3/uL (4.0-11.0) 7.7 x10^3/uL (4.0-11.0) Red Blood Count 4.80 x10^6/uL (4.30-5.70) 4.29 x10^6/uL (4.30-5.70) Hemoglobin 8.6 g/dL (13.0-17.5) 7.6 g/dL (13.0-17.5) Hematocrit 30.1 % (39.0-53.0) 27.0 % (39.0-53.0) Mean Corpuscular Volume 63 fL (79-100) 63 fL (79-100) Mean Corpuscular Hemoglobin 18 pg (25-35) 18 pg (25-35) Mean Corpuscular Hemoglobin Concent 29 g/dL (31-37) 28 g/dL (31-37) Red Cell Distribution Width 24.4 % (11.5-14.5) 23.2 % (11.5-14.5) Platelet Count 150 x10^3/uL (140-400) 89 x10^3/uL (140-400) Neutrophils (%) (Auto) 44 % (31-73) 62 % (31-73) Lymphocytes (%) (Auto) 33 % (24-48) 27 % (24-48) Monocytes (%) (Auto) 18 % (0-9) 11 % (0-9) Eosinophils (%) (Auto) 1 % (0-3) 0 % (0-3) Basophils (%) (Auto) 4 % (0-3) 0 % (0-3) Neutrophils # (Auto) 1.2 x10^3/uL (1.8-7.7) 4.8 x10^3/uL (1.8-7.7) Lymphocytes # (Auto) 0.9 x10^3/uL (1.0-4.8) 2.0 x10^3/uL (1.0-4.8) Monocytes # (Auto) 0.5 x10^3/uL (0.0-1.1) 0.9 x10^3/uL (0.0-1.1) Eosinophils # (Auto) 0.0 x10^3/uL (0.0-0.7) 0.0 x10^3/uL (0.0-0.7) Basophils # (Auto) 0.1 x10^3/uL (0.0-0.2) 0.0 x10^3/uL (0.0-0.2) Segmented Neutrophils % 42 % (35-66) Band Neutrophils % 1 % (0-9) Lymphocytes % 45 % (24-48) Monocytes % 11 % (0-10) Eosinophils % 1 % (0-5) Platelet Estimate Adequate (ADEQUATE) Hypochromasia Present Anisocytosis Present Microcytosis Present Sodium Level 143 mmol/L (136-145) 139 mmol/L (136-145) Potassium Level 3.4 mmol/L (3.5-5.1) 3.9 mmol/L (3.5-5.1) Chloride Level 104 mmol/L (98-107) 101 mmol/L (98-107) Carbon Dioxide Level 25 mmol/L (21-32) 28 mmol/L (21-32) Anion Gap 14 (6-14) 10 (6-14) Blood Urea Nitrogen 11 mg/dL (8-26) 12 mg/dL (8-26) Creatinine 1.0 mg/dL (0.7-1.3) 0.8 mg/dL (0.7-1.3) Estimated GFR (Cockcroft-Gault) 77.6 100.4 BUN/Creatinine Ratio 11 (6-20) Glucose Level 101 mg/dL (70-99) 121 mg/dL (70-99) Calcium Level 8.5 mg/dL (8.5-10.1) 8.3 mg/dL (8.5-10.1) Total Bilirubin 0.4 mg/dL (0.2-1.0) Aspartate Amino Transf (AST/SGOT) 58 U/L (15-37) Alanine Aminotransferase (ALT/SGPT) 37 U/L (16-63) Alkaline Phosphatase 53 U/L (46-116) Total Protein 7.5 g/dL (6.4-8.2) Albumin 3.8 g/dL (3.4-5.0) Albumin/Globulin Ratio 1.0 (1.0-1.7) Laboratory Tests Test 03/21/19 05:55 White Blood Count 7.7 x10^3/uL (4.0-11.0) Red Blood Count 4.29 x10^6/uL (4.30-5.70) Hemoglobin 7.6 g/dL (13.0-17.5) Hematocrit 27.0 % (39.0-53.0) Mean Corpuscular Volume 63 fL (79-100) Mean Corpuscular Hemoglobin 18 pg (25-35) Mean Corpuscular Hemoglobin Concent 28 g/dL (31-37) Red Cell Distribution Width 23.2 % (11.5-14.5) Platelet Count 89 x10^3/uL (140-400) Neutrophils (%) (Auto) 62 % (31-73) Lymphocytes (%) (Auto) 27 % (24-48) Monocytes (%) (Auto) 11 % (0-9) Eosinophils (%) (Auto) 0 % (0-3) Basophils (%) (Auto) 0 % (0-3) Neutrophils # (Auto) 4.8 x10^3/uL (1.8-7.7) Lymphocytes # (Auto) 2.0 x10^3/uL (1.0-4.8) Monocytes # (Auto) 0.9 x10^3/uL (0.0-1.1) Eosinophils # (Auto) 0.0 x10^3/uL (0.0-0.7) Basophils # (Auto) 0.0 x10^3/uL (0.0-0.2) Sodium Level 139 mmol/L (136-145) Potassium Level 3.9 mmol/L (3.5-5.1) Chloride Level 101 mmol/L (98-107) Carbon Dioxide Level 28 mmol/L (21-32) Anion Gap 10 (6-14) Blood Urea Nitrogen 12 mg/dL (8-26) Creatinine 0.8 mg/dL (0.7-1.3) Estimated GFR (Cockcroft-Gault) 100.4 Glucose Level 121 mg/dL (70-99) Calcium Level 8.3 mg/dL (8.5-10.1) Medications Active Scripts Medications Dose Route/Sig Max Daily Dose Days Date Category Impression . hypoxemia sec to atelectasis expected resp failure sec to above after surgery ROSS PATRICK MD Mar 21, 2019 13:54
--- NOTE | 2019-03-21 14:27 | NUR ---
SS following for discharge planning. SS reviewed pt chart. Pt is from home with spouse and is currently requiring oxygen. SS will continue to follow for discharge planning.
--- NOTE | 2019-03-21 16:02 | RAD ---
Single view of the chest. 03/21/2019 1:52 PM Indication: Congestive heart failure Comparison: Chest radiograph January 14, 2019 Findings: Markedly reduced inspiratory volumes are noted which augment the cardiomediastinal silhouette and pulmonary vasculature. No gross congestion is seen allowing for this. Linear opacity in the left lung base most likely reflects mild atelectasis. No pneumothorax or effusion is seen. No acute osseous changes are identified. IMPRESSION: 1. Low lung volumes 2. Probable mild left basilar atelectasis Electronically signed by: Clint Roblero MD (03/21/2019 3:59 PM) [id number]
[2019-03-21] MEDS: MORPHINE SULFATE/PF 30 ML IV PRN (20:41)
[2019-03-21] MEDS ORDERED: IV NORMAL SALINE 500ML BAG 500 ML IV PRN (23:15)
[2019-03-21] MEDS ORDERED: ATROPINE 0.5 MG/5 ML DISP.SYRINGE. IV PRN (23:15)
--- NOTE | 2019-03-21 23:25 | CONS ---
DATE OF CONSULTATION: 03/21/2019 ATTENDING PHYSICIAN: Chevy Houston MD REASON FOR CONSULTATION: The patient is seen in pulmonary consultation at the request of Dr. Houston for hypoxemia. 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 I was asked to see him in consultation. He is hypoxic after surgery. He has a history of hypertension, alcoholism, seizures, left ankle surgery. The patient has never smoked. He is up-to-date on his flu vaccination. He reports no productive cough. He is currently utilizing incentive spirometry. His is at the bedside. Denies any recent fever, chills, nausea, vomiting, or diarrhea. PAST MEDICAL HISTORY: Hypertension, alcoholism. ALLERGIES: No known drug allergies. MEDICATIONS: List was reviewed. FAMILY HISTORY: Remarkable for stomach cancer, coronary artery disease. SOCIAL HISTORY: He continues to drink on a daily basis. REVIEW OF SYSTEMS: As indicated above, otherwise, a 10-point system was reviewed and negative. PHYSICAL EXAMINATION: VITAL SIGNS: The patient was requiring 2 liters of oxygen supplementation, saturation of greater than 92%. HEENT: Eyes, the sclerae were nonicteric. NECK: Jugular venous distention was not elevated. No lymphadenopathy. CHEST: Full expansion. LUNGS: Adequate air flow with no wheezes. CARDIOVASCULAR: Regular rate and rhythm with S1, S2, no S3. ABDOMEN: Soft, nontender, nondistended. EXTREMITIES: No clubbing, cyanosis, or edema. NEUROLOGIC: The patient was awake, alert, following commands. A detailed neuro exam was not performed. LABORATORY DATA: Labs were reviewed. White count was initially low. This morning, it was 7.7. Electrolytes were noted. BUN and creatinine were noted. I reviewed the CT chest, pelvis and abdomen from 03/01/2019 revealing no infiltrates in the lower portions of the lungs. IMPRESSION: 1. Expected hypoxemia after surgical intervention related to possible atelectasis. 2. Acute respiratory failure secondary to above. 3. Status post laparoscopic partial gastrectomy and liver biopsy. 4. Alcoholism. 5. History of seizure disorder. PLAN: 1. We will continue incentive spirometry. 2. No need for antibiotics. 3. Obtain chest x-ray. 4. Continue postoperative care. 5. Alcohol withdrawal protocol. I do appreciate the privilege in sharing in the patient's care. ROSS PATRICK MD DR: Katherine JOB#: [id number] / [id number]
[2019-03-21] MEDS: DEXMEDETOMIDINE 400 MCG in IV NORMAL SALINE 100ML 96 ML IV PRN (23:36)
--- NOTE | 2019-03-21 23:45 | NUR ---
Patient agitated and restless; yelling at to "take me home." HR increased to 120s-140s. Patient attempting multiple times to get of out bed despite multiple attempts at redirection and reorientation. Ativan IV given per [facility] protocol. 12 mg IV Ativan given since the start of this nurses' shift without result. Dr. Lerma notified of patient's change in status. Order received for precedex IV. Will initiate and continue to monitor. remains at bedside.
[2019-03-22] VITALS (24 sets, daily range): BP systolic 99–190; BP diastolic 68–112
[2019-03-22] MEDS: DEXMEDETOMIDINE 400 MCG in IV NORMAL SALINE 100ML 96 ML IV PRN ×3 (04:29→21:02)
[2019-03-22] MEDS: ENOXAPARIN 40 MG/0.4 ML SYRINGE. SQ SCH (07:48)
[2019-03-22] MEDS: FAMOTIDINE 20 MG/2 ML VIAL IVP SCH ×2 (07:48→20:58)
--- NOTE | 2019-03-22 10:09 | PDOC ---
SURGICAL PROGRESS NOTE Subjective Pt sedated, appears comfortable, pt agitated yesterday and self d/c'ed NGT Vital Signs Vital Signs Date Time Temp Pulse Resp B/P (MAP) Pulse Ox O2 Delivery O2 Flow Rate FiO2 03/22/19 09:00 82 17 103/72 (82) 96 Nasal Cannula 5.0 03/22/19 08:00 98.5 98.5 I&O Intake and Output 03/22/19 07:00 Intake Total 2199.51430 ml Output Total 2245 ml Balance -45.89557 ml Intake IV Total 2199.00840 ml Output Urine Total 1985 ml Drainage Total 260 ml PATIENT HAS A MENDEZ: Yes (accurate i and os) General: No acute distress Abdomen: Soft, No tenderness, Other (dressings intact) Labs Laboratory Tests Test 03/21/19 05:55 White Blood Count 7.7 x10^3/uL (4.0-11.0) Red Blood Count 4.29 x10^6/uL (4.30-5.70) Hemoglobin 7.6 g/dL (13.0-17.5) Hematocrit 27.0 % (39.0-53.0) Mean Corpuscular Volume 63 fL (79-100) Mean Corpuscular Hemoglobin 18 pg (25-35) Mean Corpuscular Hemoglobin Concent 28 g/dL (31-37) Red Cell Distribution Width 23.2 % (11.5-14.5) Platelet Count 89 x10^3/uL (140-400) Neutrophils (%) (Auto) 62 % (31-73) Lymphocytes (%) (Auto) 27 % (24-48) Monocytes (%) (Auto) 11 % (0-9) Eosinophils (%) (Auto) 0 % (0-3) Basophils (%) (Auto) 0 % (0-3) Neutrophils # (Auto) 4.8 x10^3/uL (1.8-7.7) Lymphocytes # (Auto) 2.0 x10^3/uL (1.0-4.8) Monocytes # (Auto) 0.9 x10^3/uL (0.0-1.1) Eosinophils # (Auto) 0.0 x10^3/uL (0.0-0.7) Basophils # (Auto) 0.0 x10^3/uL (0.0-0.2) Sodium Level 139 mmol/L (136-145) Potassium Level 3.9 mmol/L (3.5-5.1) Chloride Level 101 mmol/L (98-107) Carbon Dioxide Level 28 mmol/L (21-32) Anion Gap 10 (6-14) Blood Urea Nitrogen 12 mg/dL (8-26) Creatinine 0.8 mg/dL (0.7-1.3) Estimated GFR (Cockcroft-Gault) 100.4 Glucose Level 121 mg/dL (70-99) Calcium Level 8.3 mg/dL (8.5-10.1) Problem List s/p laparoscopic partial gastrectomy appears to be doing reasonably well from surgical standpoint, but actively in DTs. 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 SOCRATES VALVERDE MD Mar 22, 2019 10:09
--- NOTE | 2019-03-22 10:50 | PDOC ---
PULMONARY PROGRESS NOTES Subjective PT UNDERGOING DT NOW RESTING NO RESP DISTRESS Vitals Vital Signs Date Time Temp Pulse Resp B/P (MAP) Pulse Ox O2 Delivery O2 Flow Rate FiO2 03/22/19 10:00 70 21 130/87 (101) 97 Nasal Cannula 5.0 03/22/19 08:00 98.5 98.5 General: Confused Lungs: Clear Cardiovascular: S1, S2 Abdomen: Soft Extremities: No Edema Skin: Warm Labs Laboratory Tests Test 03/21/19 05:55 White Blood Count 7.7 x10^3/uL (4.0-11.0) Red Blood Count 4.29 x10^6/uL (4.30-5.70) Hemoglobin 7.6 g/dL (13.0-17.5) Hematocrit 27.0 % (39.0-53.0) Mean Corpuscular Volume 63 fL (79-100) Mean Corpuscular Hemoglobin 18 pg (25-35) Mean Corpuscular Hemoglobin Concent 28 g/dL (31-37) Red Cell Distribution Width 23.2 % (11.5-14.5) Platelet Count 89 x10^3/uL (140-400) Neutrophils (%) (Auto) 62 % (31-73) Lymphocytes (%) (Auto) 27 % (24-48) Monocytes (%) (Auto) 11 % (0-9) Eosinophils (%) (Auto) 0 % (0-3) Basophils (%) (Auto) 0 % (0-3) Neutrophils # (Auto) 4.8 x10^3/uL (1.8-7.7) Lymphocytes # (Auto) 2.0 x10^3/uL (1.0-4.8) Monocytes # (Auto) 0.9 x10^3/uL (0.0-1.1) Eosinophils # (Auto) 0.0 x10^3/uL (0.0-0.7) Basophils # (Auto) 0.0 x10^3/uL (0.0-0.2) Sodium Level 139 mmol/L (136-145) Potassium Level 3.9 mmol/L (3.5-5.1) Chloride Level 101 mmol/L (98-107) Carbon Dioxide Level 28 mmol/L (21-32) Anion Gap 10 (6-14) Blood Urea Nitrogen 12 mg/dL (8-26) Creatinine 0.8 mg/dL (0.7-1.3) Estimated GFR (Cockcroft-Gault) 100.4 Glucose Level 121 mg/dL (70-99) Calcium Level 8.3 mg/dL (8.5-10.1) Medications Active Scripts Medications Dose Route/Sig Max Daily Dose Days Date Category Impression . IMPRESSION: 1. Expected hypoxemia after surgical intervention related to possible atelectasis. 2. Acute respiratory failure secondary to above. 3. Status post laparoscopic partial gastrectomy and liver biopsy. 4. Alcoholism. 5. History of seizure disorder. 6. DT Plan . CONTINUE SUPPORT IS CXR REVIEWED NUTRITIONAL SUPPORT PER DR VALVERDE SPOKE WITH ROSS PATRICK MD Mar 22, 2019 10:50
[2019-03-22] MEDS: HALOPERIDOL LACTATE 5 MG/ML VIAL. IVP PRN (12:48)
[2019-03-22] MEDS: diphenhydrAMINE 50 MG/ML VIAL IVP PRN (12:49)
[2019-03-22] MEDS: IV NORMAL SALINE 1000ML BAG 1,000 ML IV SCH (14:27)
--- NOTE | 2019-03-22 15:29 | PDOC ---
[employer] PROGRESS NOTE Chief Complaint Chief Complaint Postoperative day #2 from resection of gastrointestinal stromal tumor. History of Present Illness History of Present Illness 03/22/19 Pt seen and examined in ICU on 2nd day post op from GI surgery. Pt was sleeping comfortably during meeting. Pt's spouse was in room and said her has been resting comfortable since surgery. DW spouse and nurse. Pt's chart reviewed. Vitals/I&O Vitals/I&O: Vital Signs Date Time Temp Pulse Resp B/P (MAP) Pulse Ox O2 Delivery O2 Flow Rate FiO2 03/22/19 13:00 69 21 120/78 (92) 99 Nasal Cannula 5.0 03/22/19 12:00 98.4 98.4 I & O 03/21/19 03/21/19 03/22/19 15:00 23:00 07:00 Intake Total 845.83243 ml 1354.0 ml Output Total 485 ml 765 ml 995 ml Balance -485 ml 80.14170 ml 359.0 ml Physical Exam General: No acute distress Lungs: Clear Abdomen: Soft, No tenderness, Other (dressings intact) Review of Systems Review of Systems: unable to obtain Assessment and Plan Assessmemt and Plan Assessment Postoperative day #2 resection of gastrointestinal stromal tumor. Plan continue Intensive Care Unit monitoring wound correction medication deep vein thrombosis prophylaxis full code trend labs Pulmonology consulted and following Surgery following Nutrition consultation pending Comment Review of Relevant I have reviewed the following items lana (where applicable) has been applied. Medications: Current Medications Medications (Trade) Dose Ordered Sig/Jacqueline Route PRN Reason Start Time Stop Time Status Last Admin Dose Admin Dexmedetomidine HCl 400 mcg/ Sodium Chloride 100 ml @ 0 mls/hr CONT PRN IV AGITATION 03/21/19 23:15 03/22/19 15:00 Haloperidol Lactate (Haldol Inj) 5 mg PRN Q4HRS PRN IVP Hallucinatns,Confusn,Delirium 03/22/19 11:30 03/22/19 12:48 Diphenhydramine HCl (Benadryl) 25 mg PRN Q15MIN PRN IVP EPS symptoms 2'Haldol admin 03/22/19 11:30 03/22/19 12:49 EMILY HOUSTON III DO Mar 22, 2019 15:29
[2019-03-22] MEDS: IV RINGERS,LACTATED 1000ML 1,000 ML IV SCH (16:08)
[2019-03-22] MEDS: MULTIVIT INFUSN,ADULT 4,VIT K 10 ML, THIAMINE INJ 100 MG, FOLIC ACID INJ 1 MG in IV NOR... IV SCH (20:58)
[2019-03-22] MEDS ORDERED: THIAMINE INJ 100 MG in IV DEXTROSE 5% 50 ML IV SCH (21:00)
[2019-03-23] VITALS (14 sets, daily range): BP systolic 116–172; BP diastolic 81–115
[2019-03-23] MEDS: IV RINGERS,LACTATED 1000ML 1,000 ML IV SCH ×3 (02:27→22:11)
[2019-03-23] MEDS: DEXMEDETOMIDINE 400 MCG in IV NORMAL SALINE 100ML 96 ML IV PRN ×2 (02:29→05:08)
[2019-03-23] MEDS: HALOPERIDOL LACTATE 5 MG/ML VIAL. IVP PRN (03:40)
[2019-03-23] MEDS: diphenhydrAMINE 50 MG/ML VIAL IVP PRN (03:58)
--- NOTE | 2019-03-23 04:28 | NUR ---
Patient agitated and restless; yelling "call my and tell her to take me home." HR increased to 120's. Patient attempting multiple times to get of out bed despite multiple attempts at redirection and reorientation. Ativan IV given per [facility] protocol. 8 mg IV Ativan given since the start of this nurses' shift without any effect on patient. Dr. Rivera notified of patient's change in status and ordered Geodon 10mg Q6hrs PRN for agitation. Will initiate and continue to monitor.
[2019-03-23] MEDS: METOPROLOL TARTRATE 5 MG/5 ML VIAL. IVP PRN (04:38)
[2019-03-23 04:56] LABS: BASO # 0.1 x10^3/uL (0.0-0.2); BASO % 1 % (0-3); EOS % 1 % (0-3); HEMATOCRIT 28.3 % (39.0-53.0); LYMPH # 1.6 x10^3/uL (1.0-4.8); LYMPH % 21 % (24-48); MEAN CORPUSCULAR HEMOGLOBIN 18 pg (25-35); MEAN CORPUSCULAR HGB CONC 28 g/dL (31-37); MEAN CORPUSCULAR VOLUME 63 fL (79-100); MONO # 0.8 x10^3/uL (0.0-1.1); MONO % 11 % (0-9); NEUT % 67 % (31-73); PLATELET COUNT 139 x10^3/uL (140-400); RED BLOOD COUNT 4.47 x10^6/uL (4.30-5.70); WHITE BLOOD COUNT 7.6 x10^3/uL (4.0-11.0)
[2019-03-23] MEDS ORDERED: ZIPRASIDONE IM 20 MG VIAL. IM PRN (05:00)
[2019-03-23 05:13] LABS: CALCIUM 8.4 mg/dL (8.5-10.1); CREATININE 0.8 mg/dL (0.7-1.3); GFR 100.4; POTASSIUM 3.3 mmol/L (3.5-5.1)
[2019-03-23] MEDS: FAMOTIDINE 20 MG/2 ML VIAL IVP SCH ×2 (09:42→20:51)
[2019-03-23] MEDS: ENOXAPARIN 40 MG/0.4 ML SYRINGE. SQ SCH (09:42)
--- NOTE | 2019-03-23 12:22 | PDOC ---
SURGICAL PROGRESS NOTE Subjective up in chair improving pain managed Vital Signs Vital Signs Date Time Temp Pulse Resp B/P (MAP) Pulse Ox O2 Delivery O2 Flow Rate FiO2 03/23/19 10:00 72 24 165/96 (119) 96 Nasal Cannula 5.0 03/23/19 08:00 98.1 98.1 I&O Intake and Output 03/23/19 07:00 Intake Total 2570.5 ml Output Total 1920 ml Balance 650.5 ml Intake IV Total 2570.5 ml Output Urine Total 1725 ml Drainage Total 195 ml PATIENT HAS A MENDEZ: Yes General: Cooperative, No acute distress Abdomen: Soft, Other (dressing intact, drain serosang ) Labs Laboratory Tests Test 03/23/19 04:45 White Blood Count 7.6 x10^3/uL (4.0-11.0) Red Blood Count 4.47 x10^6/uL (4.30-5.70) Hemoglobin 8.0 g/dL (13.0-17.5) Hematocrit 28.3 % (39.0-53.0) Mean Corpuscular Volume 63 fL (79-100) Mean Corpuscular Hemoglobin 18 pg (25-35) Mean Corpuscular Hemoglobin Concent 28 g/dL (31-37) Red Cell Distribution Width 23.0 % (11.5-14.5) Platelet Count 139 x10^3/uL (140-400) Neutrophils (%) (Auto) 67 % (31-73) Lymphocytes (%) (Auto) 21 % (24-48) Monocytes (%) (Auto) 11 % (0-9) Eosinophils (%) (Auto) 1 % (0-3) Basophils (%) (Auto) 1 % (0-3) Neutrophils # (Auto) 5.0 x10^3/uL (1.8-7.7) Lymphocytes # (Auto) 1.6 x10^3/uL (1.0-4.8) Monocytes # (Auto) 0.8 x10^3/uL (0.0-1.1) Eosinophils # (Auto) 0.0 x10^3/uL (0.0-0.7) Basophils # (Auto) 0.1 x10^3/uL (0.0-0.2) Sodium Level 142 mmol/L (136-145) Potassium Level 3.3 mmol/L (3.5-5.1) Chloride Level 105 mmol/L (98-107) Carbon Dioxide Level 25 mmol/L (21-32) Anion Gap 12 (6-14) Blood Urea Nitrogen 12 mg/dL (8-26) Creatinine 0.8 mg/dL (0.7-1.3) Estimated GFR (Cockcroft-Gault) 100.4 Glucose Level 104 mg/dL (70-99) Calcium Level 8.4 mg/dL (8.5-10.1) Laboratory Tests Test 03/23/19 04:45 White Blood Count 7.6 x10^3/uL (4.0-11.0) Red Blood Count 4.47 x10^6/uL (4.30-5.70) Hemoglobin 8.0 g/dL (13.0-17.5) Hematocrit 28.3 % (39.0-53.0) Mean Corpuscular Volume 63 fL (79-100) Mean Corpuscular Hemoglobin 18 pg (25-35) Mean Corpuscular Hemoglobin Concent 28 g/dL (31-37) Red Cell Distribution Width 23.0 % (11.5-14.5) Platelet Count 139 x10^3/uL (140-400) Neutrophils (%) (Auto) 67 % (31-73) Lymphocytes (%) (Auto) 21 % (24-48) Monocytes (%) (Auto) 11 % (0-9) Eosinophils (%) (Auto) 1 % (0-3) Basophils (%) (Auto) 1 % (0-3) Neutrophils # (Auto) 5.0 x10^3/uL (1.8-7.7) Lymphocytes # (Auto) 1.6 x10^3/uL (1.0-4.8) Monocytes # (Auto) 0.8 x10^3/uL (0.0-1.1) Eosinophils # (Auto) 0.0 x10^3/uL (0.0-0.7) Basophils # (Auto) 0.1 x10^3/uL (0.0-0.2) Sodium Level 142 mmol/L (136-145) Potassium Level 3.3 mmol/L (3.5-5.1) Chloride Level 105 mmol/L (98-107) Carbon Dioxide Level 25 mmol/L (21-32) Anion Gap 12 (6-14) Blood Urea Nitrogen 12 mg/dL (8-26) Creatinine 0.8 mg/dL (0.7-1.3) Estimated GFR (Cockcroft-Gault) 100.4 Glucose Level 104 mg/dL (70-99) Calcium Level 8.4 mg/dL (8.5-10.1) Assessment/Plan lap partial gastrectomy --NPO, bowel rest, may need TPN Dts managed ANGELLA EDMONDSON [employer] O[employer]ATOR Mar 23, 2019 12:22
--- NOTE | 2019-03-23 12:23 | PDOC ---
PULMONARY PROGRESS NOTES Subjective SITTING IN CHAIR NO DISTRESS Vitals Vital Signs Date Time Temp Pulse Resp B/P (MAP) Pulse Ox O2 Delivery O2 Flow Rate FiO2 03/23/19 10:00 72 24 165/96 (119) 96 Nasal Cannula 5.0 03/23/19 08:00 98.1 98.1 General: Alert Lungs: Clear Cardiovascular: S1, S2 Abdomen: Soft Neuro Exam: Alert Extremities: No Edema Skin: Warm Labs Laboratory Tests Test 03/23/19 04:45 White Blood Count 7.6 x10^3/uL (4.0-11.0) Red Blood Count 4.47 x10^6/uL (4.30-5.70) Hemoglobin 8.0 g/dL (13.0-17.5) Hematocrit 28.3 % (39.0-53.0) Mean Corpuscular Volume 63 fL (79-100) Mean Corpuscular Hemoglobin 18 pg (25-35) Mean Corpuscular Hemoglobin Concent 28 g/dL (31-37) Red Cell Distribution Width 23.0 % (11.5-14.5) Platelet Count 139 x10^3/uL (140-400) Neutrophils (%) (Auto) 67 % (31-73) Lymphocytes (%) (Auto) 21 % (24-48) Monocytes (%) (Auto) 11 % (0-9) Eosinophils (%) (Auto) 1 % (0-3) Basophils (%) (Auto) 1 % (0-3) Neutrophils # (Auto) 5.0 x10^3/uL (1.8-7.7) Lymphocytes # (Auto) 1.6 x10^3/uL (1.0-4.8) Monocytes # (Auto) 0.8 x10^3/uL (0.0-1.1) Eosinophils # (Auto) 0.0 x10^3/uL (0.0-0.7) Basophils # (Auto) 0.1 x10^3/uL (0.0-0.2) Sodium Level 142 mmol/L (136-145) Potassium Level 3.3 mmol/L (3.5-5.1) Chloride Level 105 mmol/L (98-107) Carbon Dioxide Level 25 mmol/L (21-32) Anion Gap 12 (6-14) Blood Urea Nitrogen 12 mg/dL (8-26) Creatinine 0.8 mg/dL (0.7-1.3) Estimated GFR (Cockcroft-Gault) 100.4 Glucose Level 104 mg/dL (70-99) Calcium Level 8.4 mg/dL (8.5-10.1) Laboratory Tests Test 03/23/19 04:45 White Blood Count 7.6 x10^3/uL (4.0-11.0) Red Blood Count 4.47 x10^6/uL (4.30-5.70) Hemoglobin 8.0 g/dL (13.0-17.5) Hematocrit 28.3 % (39.0-53.0) Mean Corpuscular Volume 63 fL (79-100) Mean Corpuscular Hemoglobin 18 pg (25-35) Mean Corpuscular Hemoglobin Concent 28 g/dL (31-37) Red Cell Distribution Width 23.0 % (11.5-14.5) Platelet Count 139 x10^3/uL (140-400) Neutrophils (%) (Auto) 67 % (31-73) Lymphocytes (%) (Auto) 21 % (24-48) Monocytes (%) (Auto) 11 % (0-9) Eosinophils (%) (Auto) 1 % (0-3) Basophils (%) (Auto) 1 % (0-3) Neutrophils # (Auto) 5.0 x10^3/uL (1.8-7.7) Lymphocytes # (Auto) 1.6 x10^3/uL (1.0-4.8) Monocytes # (Auto) 0.8 x10^3/uL (0.0-1.1) Eosinophils # (Auto) 0.0 x10^3/uL (0.0-0.7) Basophils # (Auto) 0.1 x10^3/uL (0.0-0.2) Sodium Level 142 mmol/L (136-145) Potassium Level 3.3 mmol/L (3.5-5.1) Chloride Level 105 mmol/L (98-107) Carbon Dioxide Level 25 mmol/L (21-32) Anion Gap 12 (6-14) Blood Urea Nitrogen 12 mg/dL (8-26) Creatinine 0.8 mg/dL (0.7-1.3) Estimated GFR (Cockcroft-Gault) 100.4 Glucose Level 104 mg/dL (70-99) Calcium Level 8.4 mg/dL (8.5-10.1) Medications Active Scripts Medications Dose Route/Sig Max Daily Dose Days Date Category Impression . IMPRESSION: 1. Expected hypoxemia after surgical intervention related to possible atelectasis. 2. Acute respiratory failure secondary to above. 3. Status post laparoscopic partial gastrectomy and liver biopsy. 4. Alcoholism. 5. History of seizure disorder. 6. DT 7. MET ENCE POA Plan . SPOKE WITH UP TO CHAIR ADVANCE DIET PER SURGERY CONTINUE SUPPORT IS CXR REVIEWED ATELECTASIS OK TO TRANSFER OUT OF ICU ROSS PATRICK MD Mar 23, 2019 12:23
--- NOTE | 2019-03-23 13:14 | PDOC ---
[employer] PROGRESS NOTE Chief Complaint Chief Complaint Postoperative day #3 from resection of gastrointestinal stromal tumor. History of Present Illness History of Present Illness 03/23/19 Pt seen and examined in ICU. Pt was sitting up in bed during visit and was not conversant during meeting. Pt did not communicate with us during meeting, so no new issue/ concerns were brought up. ELVIA nurse. PT's chart reviewed. 03/22/19 Pt seen and examined in ICU on 2nd day post op from GI surgery. Pt was sleeping comfortably during meeting. Pt's spouse was in room and said her has been resting comfortable since surgery. ELVIA spouse and nurse. Pt's chart reviewed. Vitals/I&O Vitals/I&O: Vital Signs Date Time Temp Pulse Resp B/P (MAP) Pulse Ox O2 Delivery O2 Flow Rate FiO2 03/23/19 10:00 72 24 165/96 (119) 96 Nasal Cannula 5.0 03/23/19 08:00 98.1 98.1 I & O 03/22/19 03/22/19 03/23/19 15:00 23:00 07:00 Intake Total 1319.5 ml 1251 ml Output Total 755 ml 410 ml 755 ml Balance -755 ml 909.5 ml 496 ml Physical Exam General: Cooperative, No acute distress Heart: Regular rate, No murmurs Lungs: Clear Abdomen: Soft, Other (dressing intact, drain serosang ) Extremities: No edema Skin: No rashes Labs Labs: Laboratory Tests Test 03/23/19 04:45 White Blood Count 7.6 x10^3/uL (4.0-11.0) Red Blood Count 4.47 x10^6/uL (4.30-5.70) Hemoglobin 8.0 g/dL (13.0-17.5) Hematocrit 28.3 % (39.0-53.0) Mean Corpuscular Volume 63 fL (79-100) Mean Corpuscular Hemoglobin 18 pg (25-35) Mean Corpuscular Hemoglobin Concent 28 g/dL (31-37) Red Cell Distribution Width 23.0 % (11.5-14.5) Platelet Count 139 x10^3/uL (140-400) Neutrophils (%) (Auto) 67 % (31-73) Lymphocytes (%) (Auto) 21 % (24-48) Monocytes (%) (Auto) 11 % (0-9) Eosinophils (%) (Auto) 1 % (0-3) Basophils (%) (Auto) 1 % (0-3) Neutrophils # (Auto) 5.0 x10^3/uL (1.8-7.7) Lymphocytes # (Auto) 1.6 x10^3/uL (1.0-4.8) Monocytes # (Auto) 0.8 x10^3/uL (0.0-1.1) Eosinophils # (Auto) 0.0 x10^3/uL (0.0-0.7) Basophils # (Auto) 0.1 x10^3/uL (0.0-0.2) Sodium Level 142 mmol/L (136-145) Potassium Level 3.3 mmol/L (3.5-5.1) Chloride Level 105 mmol/L (98-107) Carbon Dioxide Level 25 mmol/L (21-32) Anion Gap 12 (6-14) Blood Urea Nitrogen 12 mg/dL (8-26) Creatinine 0.8 mg/dL (0.7-1.3) Estimated GFR (Cockcroft-Gault) 100.4 Glucose Level 104 mg/dL (70-99) Calcium Level 8.4 mg/dL (8.5-10.1) Review of Systems Review of Systems: unable to obtain Assessment and Plan Assessmemt and Plan Assessment Postoperative day #3 resection of gastrointestinal stromal tumor. Plan Plan to transfer pt out of ICU to general [facility] for monitoring. wound care Pain management with morphine [employer]ING [employer] home medication deep vein thrombosis prophylaxis full code trend labs Pulmonology consulted and following Surgery following Nutrition consultation- advance diet per surgery Comment Review of Relevant I have reviewed the following items lana (where applicable) has been applied. Medications: Current Medications Medications (Trade) Dose Ordered Sig/Jacqueline Route PRN Reason Start Time Stop Time Status Last Admin Dose Admin Multivitamins 10 ml/Thiamine HCl 100 mg/Folic Acid 1 mg/Sodium Chloride 1,011.2 ml @ 100 mls/ hr DAILY IV 03/22/19 21:00 03/26/19 19:07 03/22/19 20:58 EMILY HOUSTON III DO Mar 23, 2019 13:14
[2019-03-23] MEDS: IV NORMAL SALINE 1000ML BAG 1,000 ML IV SCH (14:27)
[2019-03-23] MEDS: ONDANSETRON PF 4 MG/2 ML VIAL. IVP PRN (16:56)
[2019-03-23] MEDS: MULTIVIT INFUSN,ADULT 4,VIT K 10 ML, THIAMINE INJ 100 MG, FOLIC ACID INJ 1 MG in IV NOR... IV SCH (20:51)
[2019-03-24 03:00] VITALS: BP 162/109
[2019-03-24] MEDS: MORPHINE SULFATE/PF 30 ML IV PRN (04:42)
[2019-03-24 07:00] VITALS: BP 162/119
--- NOTE | 2019-03-24 08:27 | PDOC ---
SURGICAL PROGRESS NOTE Subjective Pt noted to have some tachycardia and oxygen needs, but pt reports feeling stronger, pain controlled, no n/v. reports he looks better then he has in quite some time. Vital Signs Vital Signs Date Time Temp Pulse Resp B/P (MAP) Pulse Ox O2 Delivery O2 Flow Rate FiO2 03/24/19 05:12 Nasal Cannula 03/24/19 03:00 97.8 103 18 162/109 (126) 95 5.0 97.8 I&O Intake and Output 03/24/19 07:00 Intake Total 120 ml Output Total 1430 ml Balance -1310 ml Intake Oral 120 ml Output Urine Total 1270 ml Drainage Total 160 ml PATIENT HAS A MENDEZ: Yes (accurate i and os) General: Alert, Cooperative, No acute distress Abdomen: Soft, No tenderness, Other (KEYA serosang) Labs Laboratory Tests Test 03/23/19 04:45 White Blood Count 7.6 x10^3/uL (4.0-11.0) Red Blood Count 4.47 x10^6/uL (4.30-5.70) Hemoglobin 8.0 g/dL (13.0-17.5) Hematocrit 28.3 % (39.0-53.0) Mean Corpuscular Volume 63 fL (79-100) Mean Corpuscular Hemoglobin 18 pg (25-35) Mean Corpuscular Hemoglobin Concent 28 g/dL (31-37) Red Cell Distribution Width 23.0 % (11.5-14.5) Platelet Count 139 x10^3/uL (140-400) Neutrophils (%) (Auto) 67 % (31-73) Lymphocytes (%) (Auto) 21 % (24-48) Monocytes (%) (Auto) 11 % (0-9) Eosinophils (%) (Auto) 1 % (0-3) Basophils (%) (Auto) 1 % (0-3) Neutrophils # (Auto) 5.0 x10^3/uL (1.8-7.7) Lymphocytes # (Auto) 1.6 x10^3/uL (1.0-4.8) Monocytes # (Auto) 0.8 x10^3/uL (0.0-1.1) Eosinophils # (Auto) 0.0 x10^3/uL (0.0-0.7) Basophils # (Auto) 0.1 x10^3/uL (0.0-0.2) Sodium Level 142 mmol/L (136-145) Potassium Level 3.3 mmol/L (3.5-5.1) Chloride Level 105 mmol/L (98-107) Carbon Dioxide Level 25 mmol/L (21-32) Anion Gap 12 (6-14) Blood Urea Nitrogen 12 mg/dL (8-26) Creatinine 0.8 mg/dL (0.7-1.3) Estimated GFR (Cockcroft-Gault) 100.4 Glucose Level 104 mg/dL (70-99) Calcium Level 8.4 mg/dL (8.5-10.1) Problem List s/p gastrectomy appears to be doing reasonably well cont PPN, given suspected nursing home malnutrition cont supportive care, suspect tachycardia and oxygen needs secondary to withdrawal, appreciate consultants await diet until overall clinical status improved, secondary to concern for post op gastroparesis and risk for n/v and aspiration. SOCRATES VALVERDE MD Mar 24, 2019 08:27
--- NOTE | 2019-03-24 08:28 | PDOC ---
PULMONARY PROGRESS NOTES Subjective PT MORE AWAKE NO RESP DISTRESS OR COMPLAINTS Vitals Vital Signs Date Time Temp Pulse Resp B/P (MAP) Pulse Ox O2 Delivery O2 Flow Rate FiO2 03/24/19 05:12 Nasal Cannula 03/24/19 03:00 97.8 103 18 162/109 (126) 95 5.0 97.8 General: Alert Lungs: Clear Cardiovascular: S1, S2 Abdomen: Soft Neuro Exam: Alert Extremities: No Edema Skin: Warm Labs Laboratory Tests Test 03/23/19 04:45 White Blood Count 7.6 x10^3/uL (4.0-11.0) Red Blood Count 4.47 x10^6/uL (4.30-5.70) Hemoglobin 8.0 g/dL (13.0-17.5) Hematocrit 28.3 % (39.0-53.0) Mean Corpuscular Volume 63 fL (79-100) Mean Corpuscular Hemoglobin 18 pg (25-35) Mean Corpuscular Hemoglobin Concent 28 g/dL (31-37) Red Cell Distribution Width 23.0 % (11.5-14.5) Platelet Count 139 x10^3/uL (140-400) Neutrophils (%) (Auto) 67 % (31-73) Lymphocytes (%) (Auto) 21 % (24-48) Monocytes (%) (Auto) 11 % (0-9) Eosinophils (%) (Auto) 1 % (0-3) Basophils (%) (Auto) 1 % (0-3) Neutrophils # (Auto) 5.0 x10^3/uL (1.8-7.7) Lymphocytes # (Auto) 1.6 x10^3/uL (1.0-4.8) Monocytes # (Auto) 0.8 x10^3/uL (0.0-1.1) Eosinophils # (Auto) 0.0 x10^3/uL (0.0-0.7) Basophils # (Auto) 0.1 x10^3/uL (0.0-0.2) Sodium Level 142 mmol/L (136-145) Potassium Level 3.3 mmol/L (3.5-5.1) Chloride Level 105 mmol/L (98-107) Carbon Dioxide Level 25 mmol/L (21-32) Anion Gap 12 (6-14) Blood Urea Nitrogen 12 mg/dL (8-26) Creatinine 0.8 mg/dL (0.7-1.3) Estimated GFR (Cockcroft-Gault) 100.4 Glucose Level 104 mg/dL (70-99) Calcium Level 8.4 mg/dL (8.5-10.1) Medications Active Scripts Medications Dose Route/Sig Max Daily Dose Days Date Category Impression . IMPRESSION: 1. Expected hypoxemia after surgical intervention related to possible atelectasis. 2. Acute respiratory failure secondary to above. 3. Status post laparoscopic partial gastrectomy and liver biopsy. 4. Alcoholism. 5. History of seizure disorder. 6. DT 7. MET ENCE POA Plan . BETTER TODAY CONTINUE IS ADVANCE DIET PER SURGERY CONTINUE SUPPORT IS CXR REVIEWED ATELECTASIS ROSS PATRICK MD Mar 24, 2019 08:28
[2019-03-24 08:44] LABS: BASO # 0.1 x10^3/uL (0.0-0.2); BASO % 1 % (0-3); EOS # 0.1 x10^3/uL (0.0-0.7); EOS % 1 % (0-3); HEMATOCRIT 30.2 % (39.0-53.0); HEMOGLOBIN 8.6 g/dL (13.0-17.5); LYMPH # 1.6 x10^3/uL (1.0-4.8); LYMPH % 19 % (24-48); MEAN CORPUSCULAR HEMOGLOBIN 18 pg (25-35); MEAN CORPUSCULAR HGB CONC 28 g/dL (31-37); MEAN CORPUSCULAR VOLUME 64 fL (79-100); MONO # 1.2 x10^3/uL (0.0-1.1); MONO % 14 % (0-9); NEUT # 5.4 x10^3/uL (1.8-7.7); NEUT % 65 % (31-73); PLATELET COUNT 162 x10^3/uL (140-400); RED BLOOD COUNT 4.73 x10^6/uL (4.30-5.70); RED CELL DISTRIBUTION WIDTH 22.7 % (11.5-14.5); WHITE BLOOD COUNT 8.3 x10^3/uL (4.0-11.0)
[2019-03-24 08:47] LABS: CALCIUM 8.3 mg/dL (8.5-10.1); CREATININE 0.7 mg/dL (0.7-1.3); GFR 117.1; POTASSIUM 3.3 mmol/L (3.5-5.1)
[2019-03-24] MEDS: MULTIVIT INFUSN,ADULT 4,VIT K 10 ML, THIAMINE INJ 100 MG, FOLIC ACID INJ 1 MG in IV NOR... IV SCH (08:49)
[2019-03-24] MEDS: ENOXAPARIN 40 MG/0.4 ML SYRINGE. SQ SCH (08:50)
[2019-03-24] MEDS: FAMOTIDINE 20 MG/2 ML VIAL IVP SCH ×2 (08:51→20:52)
[2019-03-24] MEDS ORDERED: METOPROLOL TARTRATE 5 MG/5 ML VIAL. IVP PRN (09:00)
--- NOTE | 2019-03-24 09:00 | NUR ---
D51/2NS WITH 40KCL NOT HUNG AT THIS TIME DUE TO BANANA BAG INFUSING, PATIENT ASSISTED UP TO CHAIR AT THE BEDSIDE PER THIS TIRE SERVICE SUPERVISOR, INCENTIVE SPIROMETRY EDUCATION GIVEN AND PATIENT ENCOURAGED TO USE AT LEAST 3-4X PER HOUR, PATIENT AGREED. AT THE BEDSIDE, EMOTIONAL SUPPORT GIVEN.
[2019-03-24 10:43] LABS: ANISOCYTOSIS MOD; MICROCYTOSIS MOD
[2019-03-24 10:44] LABS: HYPOCHROMIA MOD; PLT ESTIMATE ADEQUATE (ADEQUATE)
--- NOTE | 2019-03-24 12:57 | PDOC ---
PROGRESS NOTES Chief Complaint Chief Complaint Postoperative day #4 from resection of gastrointestinal stromal tumor. Accel HTN Indwelling momin [employer] POD # 1 History of Present Illness History of Present Illness transferred out of ICU 03/24 STill NPO per GS Hungry PAIn controlled, on [employer] Momin in with good UO SBP high 160s, no sxs PLAn: LAbetolol now then prn - dw ANTHONY danielle NPO per gS IS MAintain momin for now Vitals Vitals Vital Signs Date Time Temp Pulse Resp B/P (MAP) Pulse Ox O2 Delivery O2 Flow Rate FiO2 03/24/19 07:00 97.9 103 16 162/119 (133) 97 Nasal Cannula 2.0 97.9 Physical Exam General: Alert, Cooperative, No acute distress Heart: Regular rate, No murmurs Lungs: Clear Abdomen: Soft, No tenderness, Other (KEYA serosang) Extremities: No edema Skin: No rashes Labs LABS Laboratory Tests Test 03/24/19 07:42 White Blood Count 8.3 x10^3/uL (4.0-11.0) Red Blood Count 4.73 x10^6/uL (4.30-5.70) Hemoglobin 8.6 g/dL (13.0-17.5) Hematocrit 30.2 % (39.0-53.0) Mean Corpuscular Volume 64 fL (79-100) Mean Corpuscular Hemoglobin 18 pg (25-35) Mean Corpuscular Hemoglobin Concent 28 g/dL (31-37) Red Cell Distribution Width 22.7 % (11.5-14.5) Platelet Count 162 x10^3/uL (140-400) Neutrophils (%) (Auto) 65 % (31-73) Lymphocytes (%) (Auto) 19 % (24-48) Monocytes (%) (Auto) 14 % (0-9) Eosinophils (%) (Auto) 1 % (0-3) Basophils (%) (Auto) 1 % (0-3) Neutrophils # (Auto) 5.4 x10^3/uL (1.8-7.7) Lymphocytes # (Auto) 1.6 x10^3/uL (1.0-4.8) Monocytes # (Auto) 1.2 x10^3/uL (0.0-1.1) Eosinophils # (Auto) 0.1 x10^3/uL (0.0-0.7) Basophils # (Auto) 0.1 x10^3/uL (0.0-0.2) Platelet Estimate Adequate (ADEQUATE) Large Platelets Present Hypochromasia Mod Anisocytosis Mod Microcytosis Mod Sodium Level 138 mmol/L (136-145) Potassium Level 3.3 mmol/L (3.5-5.1) Chloride Level 100 mmol/L (98-107) Carbon Dioxide Level 22 mmol/L (21-32) Anion Gap 16 (6-14) Blood Urea Nitrogen 9 mg/dL (8-26) Creatinine 0.7 mg/dL (0.7-1.3) Estimated GFR (Cockcroft-Gault) 117.1 Glucose Level 75 mg/dL (70-99) Calcium Level 8.3 mg/dL (8.5-10.1) Review of Systems Review of Systems ralphry, all else 14 pt neg reviewed with him Comment Review of Relevant I have reviewed the following items lana (where applicable) has been applied. Labs Laboratory Tests Test 03/23/19 04:45 03/24/19 07:42 White Blood Count 7.6 x10^3/uL (4.0-11.0) 8.3 x10^3/uL (4.0-11.0) Red Blood Count 4.47 x10^6/uL (4.30-5.70) 4.73 x10^6/uL (4.30-5.70) Hemoglobin 8.0 g/dL (13.0-17.5) 8.6 g/dL (13.0-17.5) Hematocrit 28.3 % (39.0-53.0) 30.2 % (39.0-53.0) Mean Corpuscular Volume 63 fL (79-100) 64 fL (79-100) Mean Corpuscular Hemoglobin 18 pg (25-35) 18 pg (25-35) Mean Corpuscular Hemoglobin Concent 28 g/dL (31-37) 28 g/dL (31-37) Red Cell Distribution Width 23.0 % (11.5-14.5) 22.7 % (11.5-14.5) Platelet Count 139 x10^3/uL (140-400) 162 x10^3/uL (140-400) Neutrophils (%) (Auto) 67 % (31-73) 65 % (31-73) Lymphocytes (%) (Auto) 21 % (24-48) 19 % (24-48) Monocytes (%) (Auto) 11 % (0-9) 14 % (0-9) Eosinophils (%) (Auto) 1 % (0-3) 1 % (0-3) Basophils (%) (Auto) 1 % (0-3) 1 % (0-3) Neutrophils # (Auto) 5.0 x10^3/uL (1.8-7.7) 5.4 x10^3/uL (1.8-7.7) Lymphocytes # (Auto) 1.6 x10^3/uL (1.0-4.8) 1.6 x10^3/uL (1.0-4.8) Monocytes # (Auto) 0.8 x10^3/uL (0.0-1.1) 1.2 x10^3/uL (0.0-1.1) Eosinophils # (Auto) 0.0 x10^3/uL (0.0-0.7) 0.1 x10^3/uL (0.0-0.7) Basophils # (Auto) 0.1 x10^3/uL (0.0-0.2) 0.1 x10^3/uL (0.0-0.2) Sodium Level 142 mmol/L (136-145) 138 mmol/L (136-145) Potassium Level 3.3 mmol/L (3.5-5.1) 3.3 mmol/L (3.5-5.1) Chloride Level 105 mmol/L (98-107) 100 mmol/L (98-107) Carbon Dioxide Level 25 mmol/L (21-32) 22 mmol/L (21-32) Anion Gap 12 (6-14) 16 (6-14) Blood Urea Nitrogen 12 mg/dL (8-26) 9 mg/dL (8-26) Creatinine 0.8 mg/dL (0.7-1.3) 0.7 mg/dL (0.7-1.3) Estimated GFR (Cockcroft-Gault) 100.4 117.1 Glucose Level 104 mg/dL (70-99) 75 mg/dL (70-99) Calcium Level 8.4 mg/dL (8.5-10.1) 8.3 mg/dL (8.5-10.1) Platelet Estimate Adequate (ADEQUATE) Large Platelets Present Hypochromasia Mod Anisocytosis Mod Microcytosis Mod Laboratory Tests Test 03/24/19 07:42 White Blood Count 8.3 x10^3/uL (4.0-11.0) Red Blood Count 4.73 x10^6/uL (4.30-5.70) Hemoglobin 8.6 g/dL (13.0-17.5) Hematocrit 30.2 % (39.0-53.0) Mean Corpuscular Volume 64 fL (79-100) Mean Corpuscular Hemoglobin 18 pg (25-35) Mean Corpuscular Hemoglobin Concent 28 g/dL (31-37) Red Cell Distribution Width 22.7 % (11.5-14.5) Platelet Count 162 x10^3/uL (140-400) Neutrophils (%) (Auto) 65 % (31-73) Lymphocytes (%) (Auto) 19 % (24-48) Monocytes (%) (Auto) 14 % (0-9) Eosinophils (%) (Auto) 1 % (0-3) Basophils (%) (Auto) 1 % (0-3) Neutrophils # (Auto) 5.4 x10^3/uL (1.8-7.7) Lymphocytes # (Auto) 1.6 x10^3/uL (1.0-4.8) Monocytes # (Auto) 1.2 x10^3/uL (0.0-1.1) Eosinophils # (Auto) 0.1 x10^3/uL (0.0-0.7) Basophils # (Auto) 0.1 x10^3/uL (0.0-0.2) Platelet Estimate Adequate (ADEQUATE) Large Platelets Present Hypochromasia Mod Anisocytosis Mod Microcytosis Mod Sodium Level 138 mmol/L (136-145) Potassium Level 3.3 mmol/L (3.5-5.1) Chloride Level 100 mmol/L (98-107) Carbon Dioxide Level 22 mmol/L (21-32) Anion Gap 16 (6-14) Blood Urea Nitrogen 9 mg/dL (8-26) Creatinine 0.7 mg/dL (0.7-1.3) Estimated GFR (Cockcroft-Gault) 117.1 Glucose Level 75 mg/dL (70-99) Calcium Level 8.3 mg/dL (8.5-10.1) Medications Current Medications Ondansetron HCl (Zofran) 4 mg PRN Q6HRS PRN IV NAUSEA/VOMITING; Start 03/20/19 at 07:00; Stop 03/21/19 at 06:59; Status DC Fentanyl Citrate (Fentanyl 2ml Vial) 25 mcg PRN Q5MIN PRN IV MILD PAIN 1-3; Start 03/20/19 at 07:00; Stop 03/21/19 at 06:59; Status DC Fentanyl Citrate (Fentanyl 2ml Vial) 50 mcg PRN Q5MIN PRN IV MODERATE TO SEVERE PAIN Last administered on 03/20/19at 16:48; Start 03/20/19 at 07:00; Stop 03/21/19 at 06:59; Status DC Morphine Sulfate (Morphine Sulfate) 1 mg PRN Q10MIN PRN IV SEVERE PAIN 7-10 Last administered on 03/20/19at 15:04; Start 03/20/19 at 07:00; Stop 03/21/19 at 06:59; Status DC Ringer's Solution 1,000 ml @ 30 mls/hr Q24H IV Last administered on 03/20/19at 10:15; Start 03/20/19 at 07:00; Stop 03/20/19 at 18:59; Status DC Lidocaine HCl (Xylocaine-Mpf 1% 2ml Vial) 2 ml PRN 1X PRN ID PRIOR TO IV START; Start 03/20/19 at 07:00; Stop 03/21/19 at 06:59; Status DC Hydromorphone HCl (Dilaudid) 0.5 mg PRN Q10MIN PRN IV SEV PAIN, Second choice; Start 03/20/19 at 07:00; Stop 03/21/19 at 06:59; Status DC Prochlorperazine Edisylate (Compazine) 5 mg PACU PRN PRN IV NAUSEA, MRX1 Last administered on 03/20/19at 15:03; Start 03/20/19 at 07:00; Stop 03/21/19 at 06:59; Status DC Cefoxitin Sodium (Mefoxin) 2 gm PREOP PRN PRN IVP PREOP Last administered on 03/20/19at 11:02; Start 03/20/19 at 06:00; Stop 03/22/19 at 11:21; Status DC Propofol 20 ml @ As Directed STK-MED ONCE IV ; Start 03/20/19 at 09:21; Stop 03/20/19 at 09:22; Status DC Lidocaine HCl (Lidocaine Pf 2% Vial) 5 ml STK-MED ONCE .ROUTE ; Start 03/20/19 at 09:21; Stop 03/20/19 at 09:22; Status DC Ondansetron HCl (Zofran) 4 mg STK-MED ONCE .ROUTE ; Start 03/20/19 at 09:21; Stop 03/20/19 at 09:22; Status DC Dexamethasone Sodium Phosphate (Decadron) 4 mg STK-MED ONCE .ROUTE ; Start 03/20/19 at 09:21; Stop 03/20/19 at 09:22; Status DC Rocuronium [place] (Zemuron) 50 mg STK-MED ONCE .ROUTE ; Start 03/20/19 at 09:21; Stop 03/20/19 at 09:22; Status DC Fentanyl Citrate (Fentanyl 2ml Vial) 100 mcg STK-MED ONCE .ROUTE ; Start 03/20/19 at 09:22; Stop 03/20/19 at 09:22; Status DC Midazolam HCl (Versed) 2 mg STK-MED ONCE .ROUTE ; Start 03/20/19 at 09:22; Stop 03/20/19 at 09:22; Status DC Sevoflurane (Ultane) 60 ml STK-MED ONCE IH ; Start 03/20/19 at 09:43; Stop 03/20/19 at 09:43; Status DC Bupivacaine HCl/ Epinephrine Bitart (Sensorcain-Epi 0.5%-1:[id number] Mpf) 30 ml STK-MED ONCE .ROUTE Last administered on 03/20/19at 11:38; Start 03/20/19 at 10:14; Stop 03/20/19 at 10:15; Status DC Dexamethasone Sodium Phosphate (Decadron) 4 mg STK-MED ONCE .ROUTE ; Start 03/20/19 at 11:18; Stop 03/20/19 at 11:19; Status DC Fentanyl Citrate (Fentanyl 2ml Vial) 100 mcg STK-MED ONCE .ROUTE ; Start 03/20/19 at 11:38; Stop 03/20/19 at 11:39; Status DC Cellulose (Surgicel Hemostat 4x8) 1 each STK-MED ONCE .ROUTE Last administered on 03/20/19at 12:24; Start 03/20/19 at 12:24; Stop 03/20/19 at 12:24; Status DC Phenylephrine HCl (PHENYLEPHRINE in 0.9% NACL PF) 1 mg STK-MED ONCE IV ; Start 03/20/19 at 12:25; Stop 03/20/19 at 12:25; Status DC Ephedrine Sulfate (ePHEDrine PF IN SALINE SYRINGE) 50 mg STK-MED ONCE IV ; Start 03/20/19 at 12:25; Stop 03/20/19 at 12:25; Status DC Neostigmine [place] (Neostigmine Methylsulfate) 5 mg STK-MED ONCE .ROUTE ; Start 03/20/19 at 12:25; Stop 03/20/19 at 12:25; Status DC Glycopyrrolate (Robinul) 1 mg STK-MED ONCE .ROUTE ; Start 03/20/19 at 12:25; Stop 03/20/19 at 12:26; Status DC Rocuronium [place] (Zemuron) 50 mg STK-MED ONCE .ROUTE ; Start 03/20/19 at 12:33; Stop 03/20/19 at 12:33; Status DC Cefoxitin Sodium (Mefoxin) 2 gm 1X ONCE IVP Last administered on 03/20/19at 13:02; Start 03/20/19 at 12:45; Stop 03/20/19 at 12:46; Status DC Albumin Human 500 ml @ As Directed STK-MED ONCE IV ; Start 03/20/19 at 13:05; Stop 03/20/19 at 13:05; Status DC Propofol 20 ml @ As Directed STK-MED ONCE IV ; Start 03/20/19 at 14:06; Stop 03/20/19 at 14:06; Status DC Desflurane (Suprane) 90 ml STK-MED ONCE IH ; Start 03/20/19 at 14:11; Stop 03/20/19 at 14:11; Status DC Famotidine (Pepcid Vial) 20 mg BID IVP Last administered on 03/24/19at 08:51; Start 03/20/19 at 21:00 Enoxaparin Sodium (Lovenox 40mg Syringe) 40 mg Q24H SQ Last administered on 03/24/19at 08:50; Start 03/21/19 at 09:00 Sodium Chloride (Normal Saline Flush) 3 ml QSHIFT PRN IV AFTER MEDS AND BLOOD DRAWS; Start 03/20/19 at 14:30 Ringer's Solution 1,000 ml @ 100 mls/hr Q10H IV Last administered on 03/23/19at 16:56; Start 03/20/19 at 14:27; Stop 03/24/19 at 08:56; Status DC Naloxone HCl (Narcan) 0.4 mg PRN Q2MIN PRN IV SEE INSTRUCTIONS; Start 03/20/19 at 14:30 Sodium Chloride 1,000 ml @ 25 mls/hr Q24H IV ; Start 03/20/19 at 14:27 Morphine Sulfate 30 ml @ 0 mls/hr CONT PRN PRN IV PER PROTOCOL Last admini stered on 03/24/19at 04:42; Start 03/20/19 at 14:30 Ondansetron HCl (Zofran) 4 mg PRN Q6HRS PRN IVP NAUESA, 1ST CHOICE Last admi nistered on 03/23/19 16:56; Start 03/20/19 at 14:30 Lorazepam (Ativan Inj) 2 mg PRN Q1HR PRN IV For CIWA 8-14 Last administered on 03/22/19 08:25; Start 03/20/19 at 20:00 Lorazepam (Ativan Inj) 4 mg PRN Q1HR PRN IV For CIWA 15 or greater Last administered on 03/23/19at 04:39; Start 03/20/19 at 20:00 Metoprolol Tartrate (Lopressor Vial) 5 mg PRN Q6HRS PRN IVP HYPERTENSION Last a dministered on 03/23/19 04:38; Start 03/20/19 at 23:30; Stop 03/24/19 at 08:56; Status DC Dexmedetomidine HCl 400 mcg/ Sodium Chloride 100 ml @ 0 mls/hr CONT PRN IV AGITATION Last administered on 03/23/19 05:08; Start 03/21/19 at 23:15; Stop 03/24/19 at 03:59; Status DC Sodium Chloride 500 ml @ 500 mls/hr 1X PRN PRN IV ANXIETY / AGITATION; Start 03/21/19 at 23:15; Status Cancel Atropine Sulfate (ATROPINE 0.5mg SYRINGE) 0.5 mg PRN Q5MIN PRN IV SEE COMMENTS; Start 03/21/19 at 23:15 Haloperidol Lactate (Haldol Inj) 5 mg PRN Q4HRS PRN IVP Hallucinatns,Confusn,Delirium Last administered on 03/23/19at 03:40; Start 03/22/19 at 11:30 Diphenhydramine HCl (Benadryl) 25 mg PRN Q15MIN PRN IVP EPS symptoms 2'Haldol admin Last administered on 03/23/19at 03:58; Start 03/22/19 at 11:30 Multivitamins 10 ml/Thiamine HCl 100 mg/Folic Acid 1 mg/Sodium Chloride 1,011.2 ml @ 100 mls/ hr DAILY IV Last administered on 03/24/19at 08:49; Start 03/22/19 at 21:00; Stop 03/26/19 at 19:07 Thiamine HCl 100 mg/Dextrose 51 ml @ 100 mls/hr DAILY IV ; Start 03/22/19 at 21:00; Stop 03/26/19 at 09:31; Status UNV Ziprasidone (Geodon Im) 10 mg PRN Q6HRS PRN IM Agitation; Start 03/23/19 at 05:00 Metoprolol Tartrate (Lopressor Vial) 10 mg PRN Q6HRS PRN IVP HYPERTENSION; Start 03/24/19 at 09:00 Potassium Chloride/Dextrose/ Sod Cl 1,000 ml @ 85 mls/hr [id number] IV ; Start 03/24/19 at 09:00 Active Scripts Active Vitals/I & O Vital Sign - Last 24 Hours 03/23/19 03/23/19 03/23/19 03/23/19 15:00 20:00 21:29 23:00 Temp 97.6 99.5 98.1 97.6 99.5 98.1 Pulse 117 119 124 Resp 20 20 20 B/P (MAP) 145/115 (125) 146/102 (117) 165/107 (126) Pulse Ox 96 94 96 O2 Delivery Nasal Cannula Nasal Cannula Nasal Cannula Nasal Cannula O2 Flow Rate 4.0 4.0 5.0 5.0 03/24/19 03/24/19 03/24/19 03/24/19 03:00 04:42 05:12 07:00 Temp 97.8 97.9 97.8 97.9 Pulse 103 103 Resp 18 16 B/P (MAP) 162/109 (126) 162/119 (133) Pulse Ox 95 97 O2 Delivery Nasal Cannula Nasal Cannula Nasal Cannula Nasal Cannula O2 Flow Rate 5.0 2.0 Intake and Output 03/23/19 03/23/19 03/24/19 15:00 23:00 07:00 Intake Total 120 ml Output Total 670 ml 100 ml 660 ml Balance -670 ml -100 ml -540 ml DANIEL CHEUNG MD Mar 24, 2019 12:57
[2019-03-24] MEDS ORDERED: LABETALOL 20 MG/4 ML DISP.SYRIN. IVP ONE (13:00)
--- NOTE | 2019-03-24 13:08 | PATHOLOGY ---
[facility] Accession Number: [id number] . 01 Material submitted: . PART A: stomach - STOMACH MASS PART B: liver - LIVER BIOPSY,FS . 01 Clinical history: . GI tumor. . 02 Frozen section diagnosis: . GROSS CONSULTATION AND FROZEN SECTION DIAGNOSIS: (By Dr. Marr) . A. Stomach mass, partial gastrectomy: - Tumor present, margins grossly negative (Gross consultation only) - The results are reported to Dr. Houston. . B. Liver biopsy: - Abundant steatosis. No evidence of tumor. - The results are reported to Dr. Sanabria. (JPM:shalom 03/23/2019) . GROSS CONSULTATION AND FROZEN SECTION GROSS DESCRIPTION: A. Received in formalin labeled "Lorenzo Lozada, stomach mass" is a 6.0 x 6.0 x 4.5 cm partial gastrectomy specimen. The serosa measures 5.0 x 4.0 cm and is inked red. The gastric resection margin is inked black. The specimen is sectioned to reveal a clifton-brown bulging tumor below the mucosal surface, measuring 5.5 x 5.5 x 4.0 cm. The margin is grossly negative, located 0.7 cm from the mass. The mass is located 0.4 cm from the inked serosa. [place] . B. The specimen is received fresh for intraoperative consultation and is designated "liver biopsy". This consists of a wedge shaped biopsy of liver tissue measuring 2.5 x 1.7 x 0.5 cm. The specimen is serially sectioned. A digital sales representative portion of the specimen is submitted for frozen section as FSB1. The tissue remaining from frozen section is submitted for permanent sections as B1. The remainder of the specimen is submitted for microscopy as B2. (JPM:pit 03/23/2019) . Frozen section performed at [facility], [address] [place] [address], [place] [address]. CIARA/JERRY . 02 Diagnosis: A. Segment of stomach, partial gastrectomy: - Gastrointestinal stromal tumor, low-grade, mixed epitheloid and spindle cell type, measuring 5.5 cm in greatest dimension. - Margins of resection negative for tumor. - Mild chronic inflammation of gastric mucosa. . B. Liver, wedge biopsy: - Abundant steatosis - negative for malignancy. See comment. (JPM:pit/yeison 03/24/2019) . . . Surgical Pathology Cancer Case Summary . Protocol posting date: September 2018 . GASTROINTESTINAL STROMAL TUMOR (GIST): Resection . . Procedure ___ Resection Specify type: partial gastrectomy . Tumor Site Specify: Stomach . Tumor Size Greatest dimension (centimeters): 5.5 cm . Tumor Focality ___ Unifocal . Histologic Type ___ Gastrointestinal stromal tumor, mixed epithelioid and spindle cell type . Mitotic Rate Specify: less than 5 mitotic figures/5 mm2 . + Necrosis + ___ Not identified . Histologic Grade ___ G1: Low grade; mitotic rate <or= 5/5 mm2 . Risk Assessment ___ Low risk . Margins ___ Uninvolved by GIST Distance of tumor from closest margin (millimeters or centimeters): 7 mm . Regional Lymph Nodes . ___ No lymph nodes submitted or found . Pathologic Stage Classification (pTNM, AJCC 8th Edition) . Primary Tumor (pT) ___ pT3:Tumor more than 5 cm but not more than 10 cm . Ancillary Studies + Immunohistochemical Studies (select all that apply) + ___ KIT (CD117) ___ Positive . + Molecular Genetic Studies + ___ Not performed . + Preresection Treatment +___ No known preresection therapy . Treatment Effect ___ No known presurgical therapy [facility] 03/24/2019 1239 Local . 02 Comment: Sections of the partial gastrectomy reveal a mass which appears to arise from the muscular wall. The mass is composed of tumor cells having an epitheloid and focal spindle cell appearance. The epitheloid cells are present in nests and sheets. The epitheloid cells have eosinophilic fibrillar to focally clear cytoplasm, and possess rounded to ovoid nuclei having a finely dispersed chromatin and small nucleoli. The spindled shaped tumor cells have a fascicular arrangement and show focal nuclear palisading. There is no evidence of coagulative tumor necrosis. The tumor is not mitotically active, showing less than 5 mitotic figures /5mm2. The margins of excision are free of neoplasm. A panel of immunoperoxidase stains is obtained and yields the following results: . CD117 (A8): Tumor cells diffusely and strongly positive. AE1/AE3 (A8): Tumor cells negative. SMA (A8): Tumor cells focally positive. DESMIN (A8): Tumor cells negative. CD34 (A8): Tumor cells positive. S100 (A8): Tumor cells negative. Synaptophysin (A8): Tumor cells negative. Ki-67 (A8): Tumor cells show low proliferative index. . CD117 (A4): Tumor cells diffusely and strongly positive. . The morphologic and immunophenotypic findings are supportive of the diagnosis of a gastrointestinal stromal tumor, low-grade. Based on the tumor site, tumor size, and mitotic rate, the tumor has a low (3.6%) risk of progressive disease. The case is also examined by Dr. Marr, who concurs with the diagnosis. . The final diagnosis of the liver biopsy will be issued as an addendum report following examination by Dr. Cuevas, who has a special interest in liver pathology. . (JPM:pit/yeison 03/24/2019) . Special stains performed: Immunoperoxidase for CD117, smooth muscle actin, desmin, S100, AE1/AE3, CD34, synaptophysin, Ki-67 on A8 and CD117 on A4 and trichrome, retic, iron stain, PAS without diastase and with diastase on B2 . 02 Electronically signed: . Fidencio Hook MD, Pathologist NPI- [id number] . 01 Gross description: . SEE FROZEN SECITON FOR GROSS DESCRIPTION . A. Sections are submitted as follows: A1-A3 digital sales representative mass to inked mucosal margin A4 mass to serosa A5-A8 mass to mucosa [place] [facility] 03/23/2019 1310 Local . 02 Pathologist provided ICD-10: D48.1, K76.0 . 02 CPT . 915594, 209193, G10959, [id number], 560406, 463496, 765166, 399824, 504627, 849292, 891080 Specimen Comment: A courtesy copy of this report has been sent to [phone], [phone] Specimen Comment: [id number] Specimen Comment: Report sent to / DR MONTEMAYOR Performed at: [address], [place] [id number] MD Bao Sood MD Phone: [phone] Performed at: 02 [facility] [address] [place], [place] [id number] MD Fidencio Hook MD Phone: [phone]
[2019-03-24 15:30] VITALS: BP 137/95
--- NOTE | 2019-03-24 15:51 | NUR ---
SW following. Discussed [facility]. Pt transferred to [address] [place] [address] before JOSESITO could met with him and family. PT/OT yesterday recommending SNU. Pt's blood pressure not stable for therapy earlier today. Possibility of PPN. Wound care, banana bag, NPO, bowel rest. Isabel EPSTEIN to follow up.
[2019-03-24 19:40] VITALS: BP 181/107
--- NOTE | 2019-03-24 20:00 | NUR ---
This RN verified with pharmacy, D5 1/2 NS with 40 meq KCl is compatible with morphine GAS JOCKEY and can act as a carrier. NS carrier not administered at this time. Will continue to monitor pt closely.
[2019-03-24] MEDS: POTASSIUM CL 40MEQ D5-0.45NACL 1,000 ML IV SCH ×2 (20:14→20:52)
[2019-03-24] MEDS: IV NORMAL SALINE 1000ML BAG 1,000 ML IV SCH (20:14)
[2019-03-24] MEDS: LABETALOL 20 MG/4 ML DISP.SYRIN. IVP PRN (20:53)
[2019-03-24 23:57] VITALS: BP 142/88
[2019-03-25 03:45] VITALS: BP 169/98
[2019-03-25] MEDS: LABETALOL 20 MG/4 ML DISP.SYRIN. IVP PRN (04:44)
[2019-03-25 07:00] VITALS: BP 142/96
[2019-03-25 07:05] LABS: CALCIUM 8.2 mg/dL (8.5-10.1); CREATININE 0.7 mg/dL (0.7-1.3); GFR 117.1
[2019-03-25 07:14] LABS: BASO % 1 % (0-3); EOS # 0.2 x10^3/uL (0.0-0.7); EOS % 2 % (0-3); HEMATOCRIT 28.6 % (39.0-53.0); HEMOGLOBIN 8.2 g/dL (13.0-17.5); LYMPH # 1.5 x10^3/uL (1.0-4.8); LYMPH % 21 % (24-48); MEAN CORPUSCULAR HEMOGLOBIN 18 pg (25-35); MEAN CORPUSCULAR HGB CONC 29 g/dL (31-37); MEAN CORPUSCULAR VOLUME 64 fL (79-100); MONO # 1.3 x10^3/uL (0.0-1.1); MONO % 19 % (0-9); NEUT % 57 % (31-73); PLATELET COUNT 183 x10^3/uL (140-400); RED BLOOD COUNT 4.49 x10^6/uL (4.30-5.70); RED CELL DISTRIBUTION WIDTH 23.9 % (11.5-14.5)
[2019-03-25] MEDS: MULTIVIT INFUSN,ADULT 4,VIT K 10 ML, THIAMINE INJ 100 MG, FOLIC ACID INJ 1 MG in IV NOR... IV SCH (09:00)
[2019-03-25] MEDS: POTASSIUM CL 40MEQ D5-0.45NACL 1,000 ML IV SCH (09:07)
[2019-03-25] MEDS: ENOXAPARIN 40 MG/0.4 ML SYRINGE. SQ SCH (09:08)
[2019-03-25] MEDS: FAMOTIDINE 20 MG/2 ML VIAL IVP SCH ×2 (09:08→20:31)
--- NOTE | 2019-03-25 10:18 | PDOC ---
PULMONARY PROGRESS NOTES Subjective Denies SOA, or increased cough remains on room air Vitals Vital Signs Date Time Temp Pulse Resp B/P (MAP) Pulse Ox O2 Delivery O2 Flow Rate FiO2 03/25/19 07:00 98.6 92 16 142/96 (111) 97 Room Air 98.6 03/24/19 08:00 4.0 ROS: No Nausea, No Chest Pain, No Abdominal Pain, No Increase Cough General: Alert, Oriented X4 Lungs: Clear Cardiovascular: S1, S2 Abdomen: Soft Neuro Exam: Alert Extremities: No Edema Skin: Warm Labs Laboratory Tests Test 03/24/19 07:42 03/25/19 05:33 White Blood Count 8.3 x10^3/uL (4.0-11.0) 7.0 x10^3/uL (4.0-11.0) Red Blood Count 4.73 x10^6/uL (4.30-5.70) 4.49 x10^6/uL (4.30-5.70) Hemoglobin 8.6 g/dL (13.0-17.5) 8.2 g/dL (13.0-17.5) Hematocrit 30.2 % (39.0-53.0) 28.6 % (39.0-53.0) Mean Corpuscular Volume 64 fL (79-100) 64 fL (79-100) Mean Corpuscular Hemoglobin 18 pg (25-35) 18 pg (25-35) Mean Corpuscular Hemoglobin Concent 28 g/dL (31-37) 29 g/dL (31-37) Red Cell Distribution Width 22.7 % (11.5-14.5) 23.9 % (11.5-14.5) Platelet Count 162 x10^3/uL (140-400) 183 x10^3/uL (140-400) Neutrophils (%) (Auto) 65 % (31-73) 57 % (31-73) Lymphocytes (%) (Auto) 19 % (24-48) 21 % (24-48) Monocytes (%) (Auto) 14 % (0-9) 19 % (0-9) Eosinophils (%) (Auto) 1 % (0-3) 2 % (0-3) Basophils (%) (Auto) 1 % (0-3) 1 % (0-3) Neutrophils # (Auto) 5.4 x10^3/uL (1.8-7.7) 4.0 x10^3/uL (1.8-7.7) Lymphocytes # (Auto) 1.6 x10^3/uL (1.0-4.8) 1.5 x10^3/uL (1.0-4.8) Monocytes # (Auto) 1.2 x10^3/uL (0.0-1.1) 1.3 x10^3/uL (0.0-1.1) Eosinophils # (Auto) 0.1 x10^3/uL (0.0-0.7) 0.2 x10^3/uL (0.0-0.7) Basophils # (Auto) 0.1 x10^3/uL (0.0-0.2) 0.0 x10^3/uL (0.0-0.2) Platelet Estimate Adequate (ADEQUATE) Large Platelets Present Hypochromasia Mod Anisocytosis Mod Microcytosis Mod Sodium Level 138 mmol/L (136-145) 133 mmol/L (136-145) Potassium Level 3.3 mmol/L (3.5-5.1) 3.0 mmol/L (3.5-5.1) Chloride Level 100 mmol/L (98-107) 100 mmol/L (98-107) Carbon Dioxide Level 22 mmol/L (21-32) 23 mmol/L (21-32) Anion Gap 16 (6-14) 10 (6-14) Blood Urea Nitrogen 9 mg/dL (8-26) 8 mg/dL (8-26) Creatinine 0.7 mg/dL (0.7-1.3) 0.7 mg/dL (0.7-1.3) Estimated GFR (Cockcroft-Gault) 117.1 117.1 Glucose Level 75 mg/dL (70-99) 104 mg/dL (70-99) Calcium Level 8.3 mg/dL (8.5-10.1) 8.2 mg/dL (8.5-10.1) Laboratory Tests Test 03/25/19 05:33 White Blood Count 7.0 x10^3/uL (4.0-11.0) Red Blood Count 4.49 x10^6/uL (4.30-5.70) Hemoglobin 8.2 g/dL (13.0-17.5) Hematocrit 28.6 % (39.0-53.0) Mean Corpuscular Volume 64 fL (79-100) Mean Corpuscular Hemoglobin 18 pg (25-35) Mean Corpuscular Hemoglobin Concent 29 g/dL (31-37) Red Cell Distribution Width 23.9 % (11.5-14.5) Platelet Count 183 x10^3/uL (140-400) Neutrophils (%) (Auto) 57 % (31-73) Lymphocytes (%) (Auto) 21 % (24-48) Monocytes (%) (Auto) 19 % (0-9) Eosinophils (%) (Auto) 2 % (0-3) Basophils (%) (Auto) 1 % (0-3) Neutrophils # (Auto) 4.0 x10^3/uL (1.8-7.7) Lymphocytes # (Auto) 1.5 x10^3/uL (1.0-4.8) Monocytes # (Auto) 1.3 x10^3/uL (0.0-1.1) Eosinophils # (Auto) 0.2 x10^3/uL (0.0-0.7) Basophils # (Auto) 0.0 x10^3/uL (0.0-0.2) Sodium Level 133 mmol/L (136-145) Potassium Level 3.0 mmol/L (3.5-5.1) Chloride Level 100 mmol/L (98-107) Carbon Dioxide Level 23 mmol/L (21-32) Anion Gap 10 (6-14) Blood Urea Nitrogen 8 mg/dL (8-26) Creatinine 0.7 mg/dL (0.7-1.3) Estimated GFR (Cockcroft-Gault) 117.1 Glucose Level 104 mg/dL (70-99) Calcium Level 8.2 mg/dL (8.5-10.1) Medications Active Scripts Medications Dose Route/Sig Max Daily Dose Days Date Category Impression . IMPRESSION: 1. Expected hypoxemia after surgical intervention related to possible atelectasis. 2. Acute respiratory failure secondary to above. 3. Status post laparoscopic partial gastrectomy and liver biopsy. 4. Alcoholism. 5. History of seizure disorder. 6. DT 7. MET ENCE POA Plan . stable from a respiratory standpoint Remains on room air, cont. IS and encourage ambulation Follow surgery recs remains off ABX DVT/GI PPX D/W RN and Family at bedside ROSS PATRICK MD Mar 25, 2019 10:18
[2019-03-25 11:00] VITALS: BP 154/98
--- NOTE | 2019-03-25 11:30 | PDOC ---
PROGRESS NOTES Chief Complaint Chief Complaint impression Postoperative day #5 from resection of gastrointestinal stromal tumor. Accel HTN Indwelling momin [employer]OW [employer]ING History of Present Illness History of Present Illness out of ICU 03/24 STill NPO per GS Hungry hypokalemia PAIn controlled, on BLOW MACH[employer]AYING Momin in with good UO SBP high 160s, no sxs PLAn: LAbetolol prn - dw RN dw NPO per gS IS MAintain momin Vitals Vitals Vital Signs Date Time Temp Pulse Resp B/P (MAP) Pulse Ox O2 Delivery O2 Flow Rate FiO2 03/25/19 11:00 98.6 89 16 154/98 (116) 96 Room Air 98.6 03/24/19 08:00 4.0 Physical Exam General: Alert, Cooperative, No acute distress Heart: Regular rate, No murmurs Lungs: Clear Abdomen: Soft, No tenderness, Other (KEYA serosang) Extremities: No edema Skin: No rashes Labs LABS Single view of the chest. 03/21/2019 1:52 PM Indication: Congestive heart failure Comparison: Chest radiograph January 14, 2019 Findings: Markedly reduced inspiratory volumes are noted which augment the cardiomediastinal silhouette and pulmonary vasculature. No gross congestion is seen allowing for this. Linear opacity in the left lung base most likely reflects mild atelectasis. No pneumothorax or effusion is seen. No acute osseous changes are identified. IMPRESSION: 1. Low lung volumes 2. Probable mild left basilar atelectasis Electronically signed by: Clint Roblero MD (03/21/2019 3:59 PM) [id number] DICTATED and SIGNED BY: CLINT ROBLERO MD DATE: 03/21/19 1559 Laboratory Tests Test 03/25/19 05:33 White Blood Count 7.0 x10^3/uL (4.0-11.0) Red Blood Count 4.49 x10^6/uL (4.30-5.70) Hemoglobin 8.2 g/dL (13.0-17.5) Hematocrit 28.6 % (39.0-53.0) Mean Corpuscular Volume 64 fL (79-100) Mean Corpuscular Hemoglobin 18 pg (25-35) Mean Corpuscular Hemoglobin Concent 29 g/dL (31-37) Red Cell Distribution Width 23.9 % (11.5-14.5) Platelet Count 183 x10^3/uL (140-400) Neutrophils (%) (Auto) 57 % (31-73) Lymphocytes (%) (Auto) 21 % (24-48) Monocytes (%) (Auto) 19 % (0-9) Eosinophils (%) (Auto) 2 % (0-3) Basophils (%) (Auto) 1 % (0-3) Neutrophils # (Auto) 4.0 x10^3/uL (1.8-7.7) Lymphocytes # (Auto) 1.5 x10^3/uL (1.0-4.8) Monocytes # (Auto) 1.3 x10^3/uL (0.0-1.1) Eosinophils # (Auto) 0.2 x10^3/uL (0.0-0.7) Basophils # (Auto) 0.0 x10^3/uL (0.0-0.2) Sodium Level 133 mmol/L (136-145) Potassium Level 3.0 mmol/L (3.5-5.1) Chloride Level 100 mmol/L (98-107) Carbon Dioxide Level 23 mmol/L (21-32) Anion Gap 10 (6-14) Blood Urea Nitrogen 8 mg/dL (8-26) Creatinine 0.7 mg/dL (0.7-1.3) Estimated GFR (Cockcroft-Gault) 117.1 Glucose Level 104 mg/dL (70-99) Calcium Level 8.2 mg/dL (8.5-10.1) Comment Review of Relevant I have reviewed the following items lana (where applicable) has been applied. Labs Laboratory Tests Test 03/24/19 07:42 03/25/19 05:33 White Blood Count 8.3 x10^3/uL (4.0-11.0) 7.0 x10^3/uL (4.0-11.0) Red Blood Count 4.73 x10^6/uL (4.30-5.70) 4.49 x10^6/uL (4.30-5.70) Hemoglobin 8.6 g/dL (13.0-17.5) 8.2 g/dL (13.0-17.5) Hematocrit 30.2 % (39.0-53.0) 28.6 % (39.0-53.0) Mean Corpuscular Volume 64 fL (79-100) 64 fL (79-100) Mean Corpuscular Hemoglobin 18 pg (25-35) 18 pg (25-35) Mean Corpuscular Hemoglobin Concent 28 g/dL (31-37) 29 g/dL (31-37) Red Cell Distribution Width 22.7 % (11.5-14.5) 23.9 % (11.5-14.5) Platelet Count 162 x10^3/uL (140-400) 183 x10^3/uL (140-400) Neutrophils (%) (Auto) 65 % (31-73) 57 % (31-73) Lymphocytes (%) (Auto) 19 % (24-48) 21 % (24-48) Monocytes (%) (Auto) 14 % (0-9) 19 % (0-9) Eosinophils (%) (Auto) 1 % (0-3) 2 % (0-3) Basophils (%) (Auto) 1 % (0-3) 1 % (0-3) Neutrophils # (Auto) 5.4 x10^3/uL (1.8-7.7) 4.0 x10^3/uL (1.8-7.7) Lymphocytes # (Auto) 1.6 x10^3/uL (1.0-4.8) 1.5 x10^3/uL (1.0-4.8) Monocytes # (Auto) 1.2 x10^3/uL (0.0-1.1) 1.3 x10^3/uL (0.0-1.1) Eosinophils # (Auto) 0.1 x10^3/uL (0.0-0.7) 0.2 x10^3/uL (0.0-0.7) Basophils # (Auto) 0.1 x10^3/uL (0.0-0.2) 0.0 x10^3/uL (0.0-0.2) Platelet Estimate Adequate (ADEQUATE) Large Platelets Present Hypochromasia Mod Anisocytosis Mod Microcytosis Mod Sodium Level 138 mmol/L (136-145) 133 mmol/L (136-145) Potassium Level 3.3 mmol/L (3.5-5.1) 3.0 mmol/L (3.5-5.1) Chloride Level 100 mmol/L (98-107) 100 mmol/L (98-107) Carbon Dioxide Level 22 mmol/L (21-32) 23 mmol/L (21-32) Anion Gap 16 (6-14) 10 (6-14) Blood Urea Nitrogen 9 mg/dL (8-26) 8 mg/dL (8-26) Creatinine 0.7 mg/dL (0.7-1.3) 0.7 mg/dL (0.7-1.3) Estimated GFR (Cockcroft-Gault) 117.1 117.1 Glucose Level 75 mg/dL (70-99) 104 mg/dL (70-99) Calcium Level 8.3 mg/dL (8.5-10.1) 8.2 mg/dL (8.5-10.1) Laboratory Tests Test 03/25/19 05:33 White Blood Count 7.0 x10^3/uL (4.0-11.0) Red Blood Count 4.49 x10^6/uL (4.30-5.70) Hemoglobin 8.2 g/dL (13.0-17.5) Hematocrit 28.6 % (39.0-53.0) Mean Corpuscular Volume 64 fL (79-100) Mean Corpuscular Hemoglobin 18 pg (25-35) Mean Corpuscular Hemoglobin Concent 29 g/dL (31-37) Red Cell Distribution Width 23.9 % (11.5-14.5) Platelet Count 183 x10^3/uL (140-400) Neutrophils (%) (Auto) 57 % (31-73) Lymphocytes (%) (Auto) 21 % (24-48) Monocytes (%) (Auto) 19 % (0-9) Eosinophils (%) (Auto) 2 % (0-3) Basophils (%) (Auto) 1 % (0-3) Neutrophils # (Auto) 4.0 x10^3/uL (1.8-7.7) Lymphocytes # (Auto) 1.5 x10^3/uL (1.0-4.8) Monocytes # (Auto) 1.3 x10^3/uL (0.0-1.1) Eosinophils # (Auto) 0.2 x10^3/uL (0.0-0.7) Basophils # (Auto) 0.0 x10^3/uL (0.0-0.2) Sodium Level 133 mmol/L (136-145) Potassium Level 3.0 mmol/L (3.5-5.1) Chloride Level 100 mmol/L (98-107) Carbon Dioxide Level 23 mmol/L (21-32) Anion Gap 10 (6-14) Blood Urea Nitrogen 8 mg/dL (8-26) Creatinine 0.7 mg/dL (0.7-1.3) Estimated GFR (Cockcroft-Gault) 117.1 Glucose Level 104 mg/dL (70-99) Calcium Level 8.2 mg/dL (8.5-10.1) Medications Current Medications Ondansetron HCl (Zofran) 4 mg PRN Q6HRS PRN IV NAUSEA/VOMITING; Start 03/20/19 at 07:00; Stop 03/21/19 at 06:59; Status DC Fentanyl Citrate (Fentanyl 2ml Vial) 25 mcg PRN Q5MIN PRN IV MILD PAIN 1-3; Start 03/20/19 at 07:00; Stop 03/21/19 at 06:59; Status DC Fentanyl Citrate (Fentanyl 2ml Vial) 50 mcg PRN Q5MIN PRN IV MODERATE TO SEVERE PAIN Last administered on 03/20/19at 16:48; Start 03/20/19 at 07:00; Stop 03/21/19 at 06:59; Status DC Morphine Sulfate (Morphine Sulfate) 1 mg PRN Q10MIN PRN IV SEVERE PAIN 7-10 Last administered on 03/20/19at 15:04; Start 03/20/19 at 07:00; Stop 03/21/19 at 06:59; Status DC Ringer's Solution 1,000 ml @ 30 mls/hr Q24H IV Last administered on 03/20/19at 10:15; Start 03/20/19 at 07:00; Stop 03/20/19 at 18:59; Status DC Lidocaine HCl (Xylocaine-Mpf 1% 2ml Vial) 2 ml PRN 1X PRN ID PRIOR TO IV START; Start 03/20/19 at 07:00; Stop 03/21/19 at 06:59; Status DC Hydromorphone HCl (Dilaudid) 0.5 mg PRN Q10MIN PRN IV SEV PAIN, Second choice; Start 03/20/19 at 07:00; Stop 03/21/19 at 06:59; Status DC Prochlorperazine Edisylate (Compazine) 5 mg PACU PRN PRN IV NAUSEA, MRX1 Last administered on 03/20/19at 15:03; Start 03/20/19 at 07:00; Stop 03/21/19 at 06:59; Status DC Cefoxitin Sodium (Mefoxin) 2 gm PREOP PRN PRN IVP PREOP Last administered on 03/20/19at 11:02; Start 03/20/19 at 06:00; Stop 03/22/19 at 11:21; Status DC Propofol 20 ml @ As Directed STK-MED ONCE IV ; Start 03/20/19 at 09:21; Stop 03/20/19 at 09:22; Status DC Lidocaine HCl (Lidocaine Pf 2% Vial) 5 ml STK-MED ONCE .ROUTE ; Start 03/20/19 at 09:21; Stop 03/20/19 at 09:22; Status DC Ondansetron HCl (Zofran) 4 mg STK-MED ONCE .ROUTE ; Start 03/20/19 at 09:21; Stop 03/20/19 at 09:22; Status DC Dexamethasone Sodium Phosphate (Decadron) 4 mg STK-MED ONCE .ROUTE ; Start 03/20 at 09:21; Stop 03/20/19 at 09:22; Status DC Rocuronium Diana (Zemuron) 50 mg STK-MED ONCE .ROUTE ; Start 03/20/19 at 09:2 1; Stop 03/20/19 at 09:22; Status DC Fentanyl Citrate (Fentanyl 2ml Vial) 100 mcg STK-MED ONCE .ROUTE ; Start 03/20/19 at 09:22; Stop 03/20/19 at 09:22; Status DC Midazolam HCl (Versed) 2 mg STK-MED ONCE .ROUTE ; Start 03/20/19 at 09:22; Stop 03/20/19 at 09:22; Status DC Sevoflurane (Ultane) 60 ml STK-MED ONCE IH ; Start 03/20/19 at 09:43; Stop 03/20/19 at 09:43; Status DC Bupivacaine HCl/ Epinephrine Bitart (Sensorcain-Epi 0.5%-1:242184 Mpf) 30 ml STK-MED ONCE .ROUTE Last administered on 03/20/19at 11:38; Start 03/20/19 at 10:14; Stop 03/20/19 at 10:15; Status DC Dexamethasone Sodium Phosphate (Decadron) 4 mg STK-MED ONCE .ROUTE ; Start 03/20/19 at 11:18; Stop 03/20/19 at 11:19; Status DC Fentanyl Citrate (Fentanyl 2ml Vial) 100 mcg STK-MED ONCE .ROUTE ; Start 03/20/19 at 11:38; Stop 03/20/19 at 11:39; Status DC Cellulose (Surgicel Hemostat 4x8) 1 each STK-MED ONCE .ROUTE Last administered on 03/20/19at 12:24; Start 03/20/19 at 12:24; Stop 03/20/19 at 12:24; Status DC Phenylephrine HCl (PHENYLEPHRINE in 0.9% NACL PF) 1 mg STK-MED ONCE IV ; Start 03/20/19 at 12:25; Stop 03/20/19 at 12:25; Status DC Ephedrine Sulfate (ePHEDrine PF IN SALINE SYRINGE) 50 mg STK-MED ONCE IV ; Start 03/20/19 at 12:25; Stop 03/20/19 at 12:25; Status DC Neostigmine Diana (Neostigmine Methylsulfate) 5 mg STK-MED ONCE .ROUTE ; Start 03/20/19 at 12:25; Stop 03/20/19 at 12:25; Status DC Glycopyrrolate (Robinul) 1 mg STK-MED ONCE .ROUTE ; Start 03/20/19 at 12:25; Stop 03/20/19 at 12:26; Status DC Rocuronium Diana (Zemuron) 50 mg STK-MED ONCE .ROUTE ; Start 03/20/19 at 12:33; Stop 03/20/19 at 12:33; Status DC Cefoxitin Sodium (Mefoxin) 2 gm 1X ONCE IVP Last administered on 03/20/19at 13:02; Start 03/20/19 at 12:45; Stop 03/20/19 at 12:46; Status DC Albumin Human 500 ml @ As Directed STK-MED ONCE IV ; Start 03/20/19 at 13:05; Stop 03/20/19 at 13:05; Status DC Propofol 20 ml @ As Directed STK-MED ONCE IV ; Start 03/20/19 at 14:06; Stop 03/20/19 at 14:06; Status DC Desflurane (Suprane) 90 ml STK-MED ONCE IH ; Start 03/20/19 at 14:11; Stop 03/20/19 at 14:11; Status DC Famotidine (Pepcid Vial) 20 mg BID IVP Last administered on 03/25/19at 09:08; Start 03/20/19 at 21:00 Enoxaparin Sodium (Lovenox 40mg Syringe) 40 mg Q24H SQ Last administered on 03/25/19at 09:08; Start 03/21/19 at 09:00 Sodium Chloride (Normal Saline Flush) 3 ml QSHIFT PRN IV AFTER MEDS AND BLOOD DRAWS; Start 03/20/19 at 14:30 Ringer's Solution 1,000 ml @ 100 mls/hr Q10H IV Last administered on 03/23/19at 16:56; Start 03/20/19 at 14:27; Stop 03/24/19 at 08:56; Status DC Naloxone HCl (Narcan) 0.4 mg PRN Q2MIN PRN IV SEE INSTRUCTIONS; Start 03/20/19 at 14:30 Sodium Chloride 1,000 ml @ 25 mls/hr Q24H IV ; Start 03/20/19 at 14:27 Morphine Sulfate 30 ml @ 0 mls/hr CONT PRN PRN IV PER PROTOCOL Last administered on 03/24/19at 04:42; Start 03/20/19 at 14:30 Ondansetron HCl (Zofran) 4 mg PRN Q6HRS PRN IVP NASILVINAA, 1ST CHOICE Last administered on 03/23/19at 16:56; Start 03/20/19 at 14:30 Lorazepam (Ativan Inj) 2 mg PRN Q1HR PRN IV For CIWA 8-14 Last administered on 03/22/19at 08:25; Start 03/20/19 at 20:00 Lorazepam (Ativan Inj) 4 mg PRN Q1HR PRN IV For CIWA 15 or greater Last administered on 03/23/19at 04:39; Start 03/20/19 at 20:00 Metoprolol Tartrate (Lopressor Vial) 5 mg PRN Q6HRS PRN IVP HYPERTENSION Last administered on 03/23/19at 04:38; Start 03/20/19 at 23:30; Stop 03/24/19 at 08:56; Status DC Dexmedetomidine HCl 400 mcg/ Sodium Chloride 100 ml @ 0 mls/hr CONT PRN IV AGITATION Last administered on 03/23/19at 05:08; Start 03/21/19 at 23:15; Stop 03/24/19 at 03:59; Status DC Sodium Chloride 500 ml @ 500 mls/hr 1X PRN PRN IV ANXIETY / AGITATION; Start 03/21/19 at 23:15; Status Cancel Atropine Sulfate (ATROPINE 0.5mg SYRINGE) 0.5 mg PRN Q5MIN PRN IV SEE COMMENTS; Start 03/21/19 at 23:15 Haloperidol Lactate (Haldol Inj) 5 mg PRN Q4HRS PRN IVP Hallucinatns,Confusn,Delirium Last administered on 03/23/19at 03:40; Start 03/22/19 at 11:30 Diphenhydramine HCl (Benadryl) 25 mg PRN Q15MIN PRN IVP EPS symptoms 2'Haldol admin Last administered on 03/23/19at 03:58; Start 03/22/19 at 11:30 Multivitamins 10 ml/Thiamine HCl 100 mg/Folic Acid 1 mg/Sodium Chloride 1,011.2 ml @ 100 mls/ hr DAILY IV Last administered on 03/24/19at 08:49; Start 03/22/19 at 21:00; Stop 03/26/19 at 19:07 Thiamine HCl 100 mg/Dextrose 51 ml @ 100 mls/hr DAILY IV ; Start 03/22/19 at 21:00; Stop 03/26/19 at 09:31; Status UNV Ziprasidone (Geodon Im) 10 mg PRN Q6HRS PRN IM Agitation; Start 03/23/19 at 05:00 Metoprolol Tartrate (Lopressor Vial) 10 mg PRN Q6HRS PRN IVP HYPERTENSION; Start 03/24/19 at 09:00; Stop 03/24/19 at 12:56; Status DC Potassium Chloride/Dextrose/ Sod Cl 1,000 ml @ 85 mls/hr [id number] IV Last administered on 03/25/19at 09:07; Start 03/24/19 at 09:00 Labetalol HCl (Normodyne Iv Push) 10 mg PRN Q2HR PRN IVP HYPERTENSION Last administered on 03/25/19at 04:44; Start 03/24/19 at 13:00 Labetalol HCl (Normodyne Iv Push) 20 mg 1X ONCE IVP Last administered on 03/24/19at 13:00; Start 03/24/19 at 13:00; Stop 03/24/19 at 13:01; Status DC Active Scripts Active Vitals/I & O Vital Sign - Last 24 Hours 03/24/19 03/24/19 03/24/19 03/24/19 13:00 15:30 19:40 20:00 Temp 98.0 98.5 98.0 98.5 Pulse 96 86 95 Resp 20 20 B/P (MAP) 168/118 137/95 (109) 181/107 (131) Pulse Ox 93 96 O2 Delivery Room Air Room Air Room Air 03/24/19 03/24/19 03/25/19 03/25/19 20:53 23:57 03:45 04:44 Temp 99.2 98.4 99.2 98.4 Pulse 98 90 82 82 Resp 18 18 B/P (MAP) 161/108 142/88 (106) 169/98 (121) 169/98 Pulse Ox 96 95 O2 Delivery Room Air Room Air 03/25/19 03/25/19 07:00 11:00 Temp 98.6 98.6 98.6 98.6 Pulse 92 89 Resp 16 16 B/P (MAP) 142/96 (111) 154/98 (116) Pulse Ox 97 96 O2 Delivery Room Air Room Air Intake and Output 03/24/19 03/24/19 03/25/19 15:00 23:00 07:00 Intake Total 0 ml 0 ml 0 ml Output Total 90 ml 60 ml 710 ml Balance -90 ml -60 ml -710 ml CEDRIC EAGLE MD Mar 25, 2019 11:30
--- NOTE | 2019-03-25 13:35 | PDOC ---
SURGICAL PROGRESS NOTE Subjective would like momin out asking about diet Vital Signs Vital Signs Date Time Temp Pulse Resp B/P (MAP) Pulse Ox O2 Delivery O2 Flow Rate FiO2 03/25/19 11:00 98.6 89 16 154/98 (116) 96 Room Air 98.6 03/25/19 08:00 4.0 I&O Intake and Output 03/25/19 07:00 Intake Total 0 ml Output Total 860 ml Balance -860 ml Intake Oral 0 ml Output Urine Total 650 ml Drainage Total 210 ml General: Cooperative, No acute distress Abdomen: Soft, Other (dressings dry) Labs Laboratory Tests Test 03/24/19 07:42 03/25/19 05:33 White Blood Count 8.3 x10^3/uL (4.0-11.0) 7.0 x10^3/uL (4.0-11.0) Red Blood Count 4.73 x10^6/uL (4.30-5.70) 4.49 x10^6/uL (4.30-5.70) Hemoglobin 8.6 g/dL (13.0-17.5) 8.2 g/dL (13.0-17.5) Hematocrit 30.2 % (39.0-53.0) 28.6 % (39.0-53.0) Mean Corpuscular Volume 64 fL (79-100) 64 fL (79-100) Mean Corpuscular Hemoglobin 18 pg (25-35) 18 pg (25-35) Mean Corpuscular Hemoglobin Concent 28 g/dL (31-37) 29 g/dL (31-37) Red Cell Distribution Width 22.7 % (11.5-14.5) 23.9 % (11.5-14.5) Platelet Count 162 x10^3/uL (140-400) 183 x10^3/uL (140-400) Neutrophils (%) (Auto) 65 % (31-73) 57 % (31-73) Lymphocytes (%) (Auto) 19 % (24-48) 21 % (24-48) Monocytes (%) (Auto) 14 % (0-9) 19 % (0-9) Eosinophils (%) (Auto) 1 % (0-3) 2 % (0-3) Basophils (%) (Auto) 1 % (0-3) 1 % (0-3) Neutrophils # (Auto) 5.4 x10^3/uL (1.8-7.7) 4.0 x10^3/uL (1.8-7.7) Lymphocytes # (Auto) 1.6 x10^3/uL (1.0-4.8) 1.5 x10^3/uL (1.0-4.8) Monocytes # (Auto) 1.2 x10^3/uL (0.0-1.1) 1.3 x10^3/uL (0.0-1.1) Eosinophils # (Auto) 0.1 x10^3/uL (0.0-0.7) 0.2 x10^3/uL (0.0-0.7) Basophils # (Auto) 0.1 x10^3/uL (0.0-0.2) 0.0 x10^3/uL (0.0-0.2) Platelet Estimate Adequate (ADEQUATE) Large Platelets Present Hypochromasia Mod Anisocytosis Mod Microcytosis Mod Sodium Level 138 mmol/L (136-145) 133 mmol/L (136-145) Potassium Level 3.3 mmol/L (3.5-5.1) 3.0 mmol/L (3.5-5.1) Chloride Level 100 mmol/L (98-107) 100 mmol/L (98-107) Carbon Dioxide Level 22 mmol/L (21-32) 23 mmol/L (21-32) Anion Gap 16 (6-14) 10 (6-14) Blood Urea Nitrogen 9 mg/dL (8-26) 8 mg/dL (8-26) Creatinine 0.7 mg/dL (0.7-1.3) 0.7 mg/dL (0.7-1.3) Estimated GFR (Cockcroft-Gault) 117.1 117.1 Glucose Level 75 mg/dL (70-99) 104 mg/dL (70-99) Calcium Level 8.3 mg/dL (8.5-10.1) 8.2 mg/dL (8.5-10.1) Laboratory Tests Test 03/25/19 05:33 White Blood Count 7.0 x10^3/uL (4.0-11.0) Red Blood Count 4.49 x10^6/uL (4.30-5.70) Hemoglobin 8.2 g/dL (13.0-17.5) Hematocrit 28.6 % (39.0-53.0) Mean Corpuscular Volume 64 fL (79-100) Mean Corpuscular Hemoglobin 18 pg (25-35) Mean Corpuscular Hemoglobin Concent 29 g/dL (31-37) Red Cell Distribution Width 23.9 % (11.5-14.5) Platelet Count 183 x10^3/uL (140-400) Neutrophils (%) (Auto) 57 % (31-73) Lymphocytes (%) (Auto) 21 % (24-48) Monocytes (%) (Auto) 19 % (0-9) Eosinophils (%) (Auto) 2 % (0-3) Basophils (%) (Auto) 1 % (0-3) Neutrophils # (Auto) 4.0 x10^3/uL (1.8-7.7) Lymphocytes # (Auto) 1.5 x10^3/uL (1.0-4.8) Monocytes # (Auto) 1.3 x10^3/uL (0.0-1.1) Eosinophils # (Auto) 0.2 x10^3/uL (0.0-0.7) Basophils # (Auto) 0.0 x10^3/uL (0.0-0.2) Sodium Level 133 mmol/L (136-145) Potassium Level 3.0 mmol/L (3.5-5.1) Chloride Level 100 mmol/L (98-107) Carbon Dioxide Level 23 mmol/L (21-32) Anion Gap 10 (6-14) Blood Urea Nitrogen 8 mg/dL (8-26) Creatinine 0.7 mg/dL (0.7-1.3) Estimated GFR (Cockcroft-Gault) 117.1 Glucose Level 104 mg/dL (70-99) Calcium Level 8.2 mg/dL (8.5-10.1) Assessment/Plan ok louie momin continue NPO for now ANGELLA EDMONDSON APRN Mar 25, 2019 13:35
[2019-03-25] MEDS: MORPHINE SULFATE/PF 30 ML IV PRN (13:54)
[2019-03-25] MEDS: IV NORMAL SALINE 1000ML BAG 1,000 ML IV SCH (14:27)
[2019-03-25 15:00] VITALS: BP 165/107
[2019-03-25] MEDS: AA 4.25 %/CALCIUM/LYTES/D5W 1,000 ML IV SCH (16:20)
[2019-03-25] MEDS ORDERED: POTASSIUM CHLORIDE 20MEQ 100 ML IV SCH (18:45)
[2019-03-25 19:00] VITALS: BP 169/104
[2019-03-25] MEDS: POTASSIUM CHLORIDE 10MEQ 100 ML IV SCH ×3 (20:32→23:46)
--- NOTE | 2019-03-25 22:00 | NUR ---
witnessed the beginning of grand mal seizure. notified RN Allan and he entered room immediately. Nurse ensured side rails were padded and that oxygen and suction equipment were available. nurse witnessed seizure. All were extremities moving unintentionally. pupils moved toward ceiling almost rolling back in head. patient could not speak or respond to stimuli. estimated seizure began at 2200. At 2202 the RN determined that the ictal phase has included and patient entered post ictal phase. Patient was confused during this time and was OX2. Believed he was at home. this lasted about 15 minutes as patient gradually began to regain consciouness. 2 mg of ativan were given at 2202. Prior to seizure and dose the patient had been exhibiting tremors. No tremors were present following Ativan.
[2019-03-25 23:00] VITALS: BP 176/115
[2019-03-26] MEDS: POTASSIUM CHLORIDE 10MEQ 100 ML IV SCH ×5 (00:30→22:03)
[2019-03-26 03:00] VITALS: BP 168/99
[2019-03-26] MEDS: AA 4.25 %/CALCIUM/LYTES/D5W 1,000 ML IV SCH ×2 (04:30→18:37)
[2019-03-26 07:27] LABS: BASO # 0.1 x10^3/uL (0.0-0.2); BASO % 1 % (0-3); EOS # 0.1 x10^3/uL (0.0-0.7); EOS % 1 % (0-3); HEMATOCRIT 28.3 % (39.0-53.0); HEMOGLOBIN 8.1 g/dL (13.0-17.5); LYMPH # 1.7 x10^3/uL (1.0-4.8); LYMPH % 20 % (24-48); MEAN CORPUSCULAR HEMOGLOBIN 18 pg (25-35); MEAN CORPUSCULAR HGB CONC 29 g/dL (31-37); MEAN CORPUSCULAR VOLUME 64 fL (79-100); MONO # 2.1 x10^3/uL (0.0-1.1); MONO % 24 % (0-9); NEUT # 4.8 x10^3/uL (1.8-7.7); NEUT % 54 % (31-73); PLATELET COUNT 181 x10^3/uL (140-400); RED BLOOD COUNT 4.45 x10^6/uL (4.30-5.70); RED CELL DISTRIBUTION WIDTH 24.7 % (11.5-14.5); WHITE BLOOD COUNT 8.8 x10^3/uL (4.0-11.0)
[2019-03-26 07:35] VITALS: BP 161/104
--- NOTE | 2019-03-26 08:48 | PDOC ---
PULMONARY PROGRESS NOTES Subjective Denies SOA, or increased cough reports overnight seizure Vitals Vital Signs Date Time Temp Pulse Resp B/P (MAP) Pulse Ox O2 Delivery O2 Flow Rate FiO2 03/26/19 03:00 98.5 96 20 168/99 (122) 94 Nasal Cannula 2.0 98.5 ROS: No Nausea, No Chest Pain, No Abdominal Pain, No Increase Cough General: Alert, Oriented X4 Lungs: Clear Cardiovascular: S1, S2 Abdomen: Soft Neuro Exam: Alert Extremities: No Edema Skin: Warm, Dry Labs Laboratory Tests Test 03/25/19 05:33 03/26/19 06:50 03/26/19 07:37 White Blood Count 7.0 x10^3/uL (4.0-11.0) 8.8 x10^3/uL (4.0-11.0) Red Blood Count 4.49 x10^6/uL (4.30-5.70) 4.45 x10^6/uL (4.30-5.70) Hemoglobin 8.2 g/dL (13.0-17.5) 8.1 g/dL (13.0-17.5) Hematocrit 28.6 % (39.0-53.0) 28.3 % (39.0-53.0) Mean Corpuscular Volume 64 fL (79-100) 64 fL (79-100) Mean Corpuscular Hemoglobin 18 pg (25-35) 18 pg (25-35) Mean Corpuscular Hemoglobin Concent 29 g/dL (31-37) 29 g/dL (31-37) Red Cell Distribution Width 23.9 % (11.5-14.5) 24.7 % (11.5-14.5) Platelet Count 183 x10^3/uL (140-400) 181 x10^3/uL (140-400) Neutrophils (%) (Auto) 57 % (31-73) 54 % (31-73) Lymphocytes (%) (Auto) 21 % (24-48) 20 % (24-48) Monocytes (%) (Auto) 19 % (0-9) 24 % (0-9) Eosinophils (%) (Auto) 2 % (0-3) 1 % (0-3) Basophils (%) (Auto) 1 % (0-3) 1 % (0-3) Neutrophils # (Auto) 4.0 x10^3/uL (1.8-7.7) 4.8 x10^3/uL (1.8-7.7) Lymphocytes # (Auto) 1.5 x10^3/uL (1.0-4.8) 1.7 x10^3/uL (1.0-4.8) Monocytes # (Auto) 1.3 x10^3/uL (0.0-1.1) 2.1 x10^3/uL (0.0-1.1) Eosinophils # (Auto) 0.2 x10^3/uL (0.0-0.7) 0.1 x10^3/uL (0.0-0.7) Basophils # (Auto) 0.0 x10^3/uL (0.0-0.2) 0.1 x10^3/uL (0.0-0.2) Sodium Level 133 mmol/L (136-145) 138 mmol/L (136-145) Potassium Level 3.0 mmol/L (3.5-5.1) 3.2 mmol/L (3.5-5.1) Chloride Level 100 mmol/L (98-107) 104 mmol/L (98-107) Carbon Dioxide Level 23 mmol/L (21-32) 23 mmol/L (21-32) Anion Gap 10 (6-14) 11 (6-14) Blood Urea Nitrogen 8 mg/dL (8-26) 5 mg/dL (8-26) Creatinine 0.7 mg/dL (0.7-1.3) 0.7 mg/dL (0.7-1.3) Estimated GFR (Cockcroft-Gault) 117.1 117.1 Glucose Level 104 mg/dL (70-99) 101 mg/dL (70-99) Calcium Level 8.2 mg/dL (8.5-10.1) 8.2 mg/dL (8.5-10.1) Glucose (Fingerstick) 103 mg/dL (70-99) Laboratory Tests Test 03/26/19 06:50 03/26/19 07:37 White Blood Count 8.8 x10^3/uL (4.0-11.0) Red Blood Count 4.45 x10^6/uL (4.30-5.70) Hemoglobin 8.1 g/dL (13.0-17.5) Hematocrit 28.3 % (39.0-53.0) Mean Corpuscular Volume 64 fL (79-100) Mean Corpuscular Hemoglobin 18 pg (25-35) Mean Corpuscular Hemoglobin Concent 29 g/dL (31-37) Red Cell Distribution Width 24.7 % (11.5-14.5) Platelet Count 181 x10^3/uL (140-400) Neutrophils (%) (Auto) 54 % (31-73) Lymphocytes (%) (Auto) 20 % (24-48) Monocytes (%) (Auto) 24 % (0-9) Eosinophils (%) (Auto) 1 % (0-3) Basophils (%) (Auto) 1 % (0-3) Neutrophils # (Auto) 4.8 x10^3/uL (1.8-7.7) Lymphocytes # (Auto) 1.7 x10^3/uL (1.0-4.8) Monocytes # (Auto) 2.1 x10^3/uL (0.0-1.1) Eosinophils # (Auto) 0.1 x10^3/uL (0.0-0.7) Basophils # (Auto) 0.1 x10^3/uL (0.0-0.2) Sodium Level 138 mmol/L (136-145) Potassium Level 3.2 mmol/L (3.5-5.1) Chloride Level 104 mmol/L (98-107) Carbon Dioxide Level 23 mmol/L (21-32) Anion Gap 11 (6-14) Blood Urea Nitrogen 5 mg/dL (8-26) Creatinine 0.7 mg/dL (0.7-1.3) Estimated GFR (Cockcroft-Gault) 117.1 Glucose Level 101 mg/dL (70-99) Calcium Level 8.2 mg/dL (8.5-10.1) Glucose (Fingerstick) 103 mg/dL (70-99) Medications Active Scripts Medications Dose Route/Sig Max Daily Dose Days Date Category Impression . IMPRESSION: 1. Expected hypoxemia after surgical intervention related to possible atelectasis. 2. Acute respiratory failure secondary to above. 3. Status post laparoscopic partial gastrectomy and liver biopsy. 4. Alcoholism. 5. History of seizure disorder. 6. DT 7. MET ENCE POA 8.Seizures Plan . stable from a respiratory standpoint Remains on room air, cont. IS and encourage ambulation Follow surgery recs remains off ABX follow neurology recs, seizure precautions DVT/GI PPX D/W RN and Family at bedside ROSS PATRICK MD Mar 26, 2019 08:48
[2019-03-26] MEDS: MULTIVIT INFUSN,ADULT 4,VIT K 10 ML, THIAMINE INJ 100 MG, FOLIC ACID INJ 1 MG in IV NOR... IV SCH (09:15)
[2019-03-26] MEDS: FAMOTIDINE 20 MG/2 ML VIAL IVP SCH ×2 (09:16→20:29)
[2019-03-26] MEDS: ENOXAPARIN 40 MG/0.4 ML SYRINGE. SQ SCH (09:16)
[2019-03-26 10:18] VITALS: BP 152/108
--- NOTE | 2019-03-26 10:52 | PDOC ---
PROGRESS NOTES Chief Complaint Chief Complaint impression Postoperative day #6 from resection of gastrointestinal stromal tumor. 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 c/w severe abuse seizure last night 03/25 NEUROLOGY CONSULTED, on withdrawal precautions, ct head pending 03/26 hx Bilateral temporomandibular joint dislocations, 10/08 post seizure 37 min pt exam, chart review, > 50% of time spent with exam, chart review, pt care coordination History of Present Illness History of Present Illness STill NPO per GS hypokalemia on replacement iv PAIn controlled, on PROMOTIONAL REPRESENTATIVE Momin in with good UO PLAn: LAbetolol prn - dw RN dw NPO per gS IS MAintain momin Vitals Vitals Vital Signs Date Time Temp Pulse Resp B/P (MAP) Pulse Ox O2 Delivery O2 Flow Rate FiO2 03/26/19 07:35 98.3 101 24 161/104 (123) 98.3 03/26/19 03:00 94 Nasal Cannula 2.0 Physical Exam General: Alert, Oriented X3, Cooperative, No acute distress Heart: Regular rate, No murmurs Lungs: Clear Abdomen: Soft, Other (dressings dry) Extremities: No cyanosis, No edema Skin: No rashes, No significant lesion Labs LABS Indication: Seizure with jaw dislocation. Axial imaging through the brain and facial bones was performed without contrast. Sagittal and coronal reformations were also performed. One or more of the following individualized dose reduction techniques were utilized for this examination: 1. Automated exposure control 2. Adjustment of the mA and/or kV according to patient size 3. Use of iterative reconstruction technique CT brain: The ventricles and sulci are prominent for the patient's age suggestive of cerebral atrophy. No sulcal effacement, midline shift or hemorrhage is detected. Cisterns are patent. IMPRESSION: Cerebral atrophy. No acute intracranial process is detected. CT maxillofacial: There are bilateral temporomandibular joint dislocations. The mandibular condyles are dislocated anteriorly in relation to the TMJ along the anterior surface of the bony eminence. No mandibular fracture is seen. The zygomatic arches are intact. The maxillary sinus marquez, nasal bones and orbital marquez appear intact. Paranasal sinuses are clear. IMPRESSION: Bilateral temporomandibular joint dislocations, as described. Electronically signed by: Chevy Longoria MD (10/01/2016 8:33 PM) [facility] DICTATED and SIGNED BY: CHEVY LONGORIA MD DATE: 10/01/162028 CC: CHRISTIAN LINDER MD; EMILY HOUSTON III, DO; JARED MONTEMAYOR MD ~ Laboratory Tests Test 03/26/19 06:50 03/26/19 07:37 White Blood Count 8.8 x10^3/uL (4.0-11.0) Red Blood Count 4.45 x10^6/uL (4.30-5.70) Hemoglobin 8.1 g/dL (13.0-17.5) Hematocrit 28.3 % (39.0-53.0) Mean Corpuscular Volume 64 fL (79-100) Mean Corpuscular Hemoglobin 18 pg (25-35) Mean Corpuscular Hemoglobin Concent 29 g/dL (31-37) Red Cell Distribution Width 24.7 % (11.5-14.5) Platelet Count 181 x10^3/uL (140-400) Neutrophils (%) (Auto) 54 % (31-73) Lymphocytes (%) (Auto) 20 % (24-48) Monocytes (%) (Auto) 24 % (0-9) Eosinophils (%) (Auto) 1 % (0-3) Basophils (%) (Auto) 1 % (0-3) Neutrophils # (Auto) 4.8 x10^3/uL (1.8-7.7) Lymphocytes # (Auto) 1.7 x10^3/uL (1.0-4.8) Monocytes # (Auto) 2.1 x10^3/uL (0.0-1.1) Eosinophils # (Auto) 0.1 x10^3/uL (0.0-0.7) Basophils # (Auto) 0.1 x10^3/uL (0.0-0.2) Sodium Level 138 mmol/L (136-145) Potassium Level 3.2 mmol/L (3.5-5.1) Chloride Level 104 mmol/L (98-107) Carbon Dioxide Level 23 mmol/L (21-32) Anion Gap 11 (6-14) Blood Urea Nitrogen 5 mg/dL (8-26) Creatinine 0.7 mg/dL (0.7-1.3) Estimated GFR (Cockcroft-Gault) 117.1 Glucose Level 101 mg/dL (70-99) Calcium Level 8.2 mg/dL (8.5-10.1) Glucose (Fingerstick) 103 mg/dL (70-99) Comment Review of Relevant I have reviewed the following items lana (where applicable) has been applied. Labs Laboratory Tests Test 03/25/19 05:33 03/26/19 06:50 03/26/19 07:37 White Blood Count 7.0 x10^3/uL (4.0-11.0) 8.8 x10^3/uL (4.0-11.0) Red Blood Count 4.49 x10^6/uL (4.30-5.70) 4.45 x10^6/uL (4.30-5.70) Hemoglobin 8.2 g/dL (13.0-17.5) 8.1 g/dL (13.0-17.5) Hematocrit 28.6 % (39.0-53.0) 28.3 % (39.0-53.0) Mean Corpuscular Volume 64 fL (79-100) 64 fL (79-100) Mean Corpuscular Hemoglobin 18 pg (25-35) 18 pg (25-35) Mean Corpuscular Hemoglobin Concent 29 g/dL (31-37) 29 g/dL (31-37) Red Cell Distribution Width 23.9 % (11.5-14.5) 24.7 % (11.5-14.5) Platelet Count 183 x10^3/uL (140-400) 181 x10^3/uL (140-400) Neutrophils (%) (Auto) 57 % (31-73) 54 % (31-73) Lymphocytes (%) (Auto) 21 % (24-48) 20 % (24-48) Monocytes (%) (Auto) 19 % (0-9) 24 % (0-9) Eosinophils (%) (Auto) 2 % (0-3) 1 % (0-3) Basophils (%) (Auto) 1 % (0-3) 1 % (0-3) Neutrophils # (Auto) 4.0 x10^3/uL (1.8-7.7) 4.8 x10^3/uL (1.8-7.7) Lymphocytes # (Auto) 1.5 x10^3/uL (1.0-4.8) 1.7 x10^3/uL (1.0-4.8) Monocytes # (Auto) 1.3 x10^3/uL (0.0-1.1) 2.1 x10^3/uL (0.0-1.1) Eosinophils # (Auto) 0.2 x10^3/uL (0.0-0.7) 0.1 x10^3/uL (0.0-0.7) Basophils # (Auto) 0.0 x10^3/uL (0.0-0.2) 0.1 x10^3/uL (0.0-0.2) Sodium Level 133 mmol/L (136-145) 138 mmol/L (136-145) Potassium Level 3.0 mmol/L (3.5-5.1) 3.2 mmol/L (3.5-5.1) Chloride Level 100 mmol/L (98-107) 104 mmol/L (98-107) Carbon Dioxide Level 23 mmol/L (21-32) 23 mmol/L (21-32) Anion Gap 10 (6-14) 11 (6-14) Blood Urea Nitrogen 8 mg/dL (8-26) 5 mg/dL (8-26) Creatinine 0.7 mg/dL (0.7-1.3) 0.7 mg/dL (0.7-1.3) Estimated GFR (Cockcroft-Gault) 117.1 117.1 Glucose Level 104 mg/dL (70-99) 101 mg/dL (70-99) Calcium Level 8.2 mg/dL (8.5-10.1) 8.2 mg/dL (8.5-10.1) Glucose (Fingerstick) 103 mg/dL (70-99) Laboratory Tests Test 03/26/19 06:50 03/26/19 07:37 White Blood Count 8.8 x10^3/uL (4.0-11.0) Red Blood Count 4.45 x10^6/uL (4.30-5.70) Hemoglobin 8.1 g/dL (13.0-17.5) Hematocrit 28.3 % (39.0-53.0) Mean Corpuscular Volume 64 fL (79-100) Mean Corpuscular Hemoglobin 18 pg (25-35) Mean Corpuscular Hemoglobin Concent 29 g/dL (31-37) Red Cell Distribution Width 24.7 % (11.5-14.5) Platelet Count 181 x10^3/uL (140-400) Neutrophils (%) (Auto) 54 % (31-73) Lymphocytes (%) (Auto) 20 % (24-48) Monocytes (%) (Auto) 24 % (0-9) Eosinophils (%) (Auto) 1 % (0-3) Basophils (%) (Auto) 1 % (0-3) Neutrophils # (Auto) 4.8 x10^3/uL (1.8-7.7) Lymphocytes # (Auto) 1.7 x10^3/uL (1.0-4.8) Monocytes # (Auto) 2.1 x10^3/uL (0.0-1.1) Eosinophils # (Auto) 0.1 x10^3/uL (0.0-0.7) Basophils # (Auto) 0.1 x10^3/uL (0.0-0.2) Sodium Level 138 mmol/L (136-145) Potassium Level 3.2 mmol/L (3.5-5.1) Chloride Level 104 mmol/L (98-107) Carbon Dioxide Level 23 mmol/L (21-32) Anion Gap 11 (6-14) Blood Urea Nitrogen 5 mg/dL (8-26) Creatinine 0.7 mg/dL (0.7-1.3) Estimated GFR (Cockcroft-Gault) 117.1 Glucose Level 101 mg/dL (70-99) Calcium Level 8.2 mg/dL (8.5-10.1) Glucose (Fingerstick) 103 mg/dL (70-99) Medications Current Medications Ondansetron HCl (Zofran) 4 mg PRN Q6HRS PRN IV NAUSEA/VOMITING; Start 03/20/19 at 07:00; Stop 03/21/19 at 06:59; Status DC Fentanyl Citrate (Fentanyl 2ml Vial) 25 mcg PRN Q5MIN PRN IV MILD PAIN 1-3; Start 03/20/19 at 07:00; Stop 03/21/19 at 06:59; Status DC Fentanyl Citrate (Fentanyl 2ml Vial) 50 mcg PRN Q5MIN PRN IV MODERATE TO SEVERE PAIN Last administered on 03/20/19at 16:48; Start 03/20/19 at 07:00; Stop 03/21/19 at 06:59; Status DC Morphine Sulfate (Morphine Sulfate) 1 mg PRN Q10MIN PRN IV SEVERE PAIN 7-10 Last administered on 03/20/19at 15:04; Start 03/20/19 at 07:00; Stop 03/21/19 at 06:59; Status DC Ringer's Solution 1,000 ml @ 30 mls/hr Q24H IV Last administered on 03/20/19at 10:15; Start 03/20/19 at 07:00; Stop 03/20/19 at 18:59; Status DC Lidocaine HCl (Xylocaine-Mpf 1% 2ml Vial) 2 ml PRN 1X PRN ID PRIOR TO IV START; Start 03/20/19 at 07:00; Stop 03/21/19 at 06:59; Status DC Hydromorphone HCl (Dilaudid) 0.5 mg PRN Q10MIN PRN IV SEV PAIN, Second choice; Start 03/20/19 at 07:00; Stop 03/21/19 at 06:59; Status DC Prochlorperazine Edisylate (Compazine) 5 mg PACU PRN PRN IV NAUSEA, MRX1 Last administered on 03/20/19at 15:03; Start 03/20/19 at 07:00; Stop 03/21/19 at 06:59; Status DC Cefoxitin Sodium (Mefoxin) 2 gm PREOP PRN PRN IVP PREOP Last administered on 03/20/19at 11:02; Start 03/20/19 at 06:00; Stop 03/22/19 at 11:21; Status DC Propofol 20 ml @ As Directed STK-MED ONCE IV ; Start 03/20/19 at 09:21; Stop 03/20/19 at 09:22; Status DC Lidocaine HCl (Lidocaine Pf 2% Vial) 5 ml STK-MED ONCE .ROUTE ; Start 03/20/19 at 09:21; Stop 03/20/19 at 09:22; Status DC Ondansetron HCl (Zofran) 4 mg STK-MED ONCE .ROUTE ; Start 03/20/19 at 09:21; Stop 03/20/19 at 09:22; Status DC Dexamethasone Sodium Phosphate (Decadron) 4 mg STK-MED ONCE .ROUTE ; Start 03/20/19 at 09:21; Stop 03/20/19 at 09:22; Status DC Rocuronium [place] (Zemuron) 50 mg STK-MED ONCE .ROUTE ; Start 03/20/19 at 09:21; Stop 03/20/19 at 09:22; Status DC Fentanyl Citrate (Fentanyl 2ml Vial) 100 mcg STK-MED ONCE .ROUTE ; Start 03/20/19 at 09:22; Stop 03/20/19 at 09:22; Status DC Midazolam HCl (Versed) 2 mg STK-MED ONCE .ROUTE ; Start 03/20/19 at 09:22; Stop 03/20/19 at 09:22; Status DC Sevoflurane (Ultane) 60 ml STK-MED ONCE IH ; Start 03/20/19 at 09:43; Stop 03/20/19 at 09:43; Status DC Bupivacaine HCl/ Epinephrine Bitart (Sensorcain-Epi 0.5%-1:[id number] Mpf) 30 ml STK-MED ONCE .ROUTE Last administered on 03/20/19at 11:38; Start 03/20/19 at 10:14; Stop 03/20/19 at 10:15; Status DC Dexamethasone Sodium Phosphate (Decadron) 4 mg STK-MED ONCE .ROUTE ; Start 03/20/19 at 11:18; Stop 03/20/19 at 11:19; Status DC Fentanyl Citrate (Fentanyl 2ml Vial) 100 mcg STK-MED ONCE .ROUTE ; Start 03/20/19 at 11:38; Stop 03/20/19 at 11:39; Status DC Cellulose (Surgicel Hemostat 4x8) 1 each STK-MED ONCE .ROUTE Last administered on 03/20/19at 12:24; Start 03/20/19 at 12:24; Stop 03/20/19 at 12:24; Status DC Phenylephrine HCl (PHENYLEPHRINE in 0.9% NACL PF) 1 mg STK-MED ONCE IV ; Start 03/20/19 at 12:25; Stop 03/20/19 at 12:25; Status DC Ephedrine Sulfate (ePHEDrine PF IN SALINE SYRINGE) 50 mg STK-MED ONCE IV ; Start 03/20/19 at 12:25; Stop 03/20/19 at 12:25; Status DC Neostigmine [place] (Neostigmine Methylsulfate) 5 mg STK-MED ONCE .ROUTE ; Start 03/20/19 at 12:25; Stop 03/20/19 at 12:25; Status DC Glycopyrrolate (Robinul) 1 mg STK-MED ONCE .ROUTE ; Start 03/20/19 at 12:25; Stop 03/20/19 at 12:26; Status DC Rocuronium [place] (Zemuron) 50 mg STK-MED ONCE .ROUTE ; Start 03/20/19 at 12:33; Stop 03/20/19 at 12:33; Status DC Cefoxitin Sodium (Mefoxin) 2 gm 1X ONCE IVP Last administered on 03/20/19at 13:02; Start 03/20/19 at 12:45; Stop 03/20/19 at 12:46; Status DC Albumin Human 500 ml @ As Directed STK-MED ONCE IV ; Start 03/20/19 at 13:05; Stop 03/20/19 at 13:05; Status DC Propofol 20 ml @ As Directed STK-MED ONCE IV ; Start 03/20/19 at 14:06; Stop 03/20/19 at 14:06; Status DC Desflurane (Suprane) 90 ml STK-MED ONCE IH ; Start 03/20/19 at 14:11; Stop 03/20/19 at 14:11; Status DC Famotidine (Pepcid Vial) 20 mg BID IVP Last administered on 03/26/19at 09:16; Start 03/20/19 at 21:00 Enoxaparin Sodium (Lovenox 40mg Syringe) 40 mg Q24H SQ Last administered on 03/26/19at 09:16; Start 03/21/19 at 09:00 Sodium Chloride (Normal Saline Flush) 3 ml QSHIFT PRN IV AFTER MEDS AND BLOOD DRAWS; Start 03/20/19 at 14:30 Ringer's Solution 1,000 ml @ 100 mls/hr Q10H IV Last administered on 03/23/19at 16:56; Start 03/20/19 at 14:27; Stop 03/24/19 at 08:56; Status DC Naloxone HCl (Narcan) 0.4 mg PRN Q2MIN PRN IV SEE INSTRUCTIONS; Start 03/20/19 at 14:30 Sodium Chloride 1,000 ml @ 25 mls/hr Q24H IV Last administered on 03/25/19at 14:27; Start 03/20/19 at 14:27 Morphine Sulfate 30 ml @ 0 mls/hr CONT PRN PRN IV PER PROTOCOL Last administered on 03/25/19at 13:54; Start 03/20/19 at 14:30 Ondansetron HCl (Zofran) 4 mg PRN Q6HRS PRN IVP NAUESA, 1ST CHOICE Last administered on 03/23/19at 16:56; Start 03/20/19 at 14:30 Lorazepam (Ativan Inj) 2 mg PRN Q1HR PRN IV For CIWA 8-14 Last administered on 03/26/19at 05:00; Start 03/20/19 at 20:00 Lorazepam (Ativan Inj) 4 mg PRN Q1HR PRN IV For CIWA 15 or greater Last administered on 03/26/19at 09:16; Start 03/20/19 at 20:00 Metoprolol Tartrate (Lopressor Vial) 5 mg PRN Q6HRS PRN IVP HYPERTENSION Last administered on 03/23/19at 04:38; Start 03/20/19 at 23:30; Stop 03/24/19 at 08:56; Status DC Dexmedetomidine HCl 400 mcg/ Sodium Chloride 100 ml @ 0 mls/hr CONT PRN IV AGITATION Last administered on 03/23/19at 05:08; Start 03/21/19 at 23:15; Stop 03/24/19 at 03:59; Status DC Sodium Chloride 500 ml @ 500 mls/hr 1X PRN PRN IV ANXIETY / AGITATION; Start 03/21/19 at 23:15; Status Cancel Atropine Sulfate (ATROPINE 0.5mg SYRINGE) 0.5 mg PRN Q5MIN PRN IV SEE COMMENTS; Start 03/21/19 at 23:15 Haloperidol Lactate (Haldol Inj) 5 mg PRN Q4HRS PRN IVP Hallucinatns,Confusn,Delirium Last administered on 03/23/19at 03:40; Start 03/22/19 at 11:30 Diphenhydramine HCl (Benadryl) 25 mg PRN Q15MIN PRN IVP EPS symptoms 2'Haldol admin Last administered on 03/23/19at 03:58; Start 03/22/19 at 11:30 Multivitamins 10 ml/Thiamine HCl 100 mg/Folic Acid 1 mg/Sodium Chloride 1,011.2 ml @ 100 mls/ hr DAILY IV Last administered on 03/26/19at 09:15; Start 03/22/19 at 21:00; Stop 03/26/19 at 19:07 Thiamine HCl 100 mg/Dextrose 51 ml @ 100 mls/hr DAILY IV ; Start 03/22/19 at 21:00; Stop 03/26/19 at 09:31; Status UNV Ziprasidone (Geodon Im) 10 mg PRN Q6HRS PRN IM Agitation; Start 03/23/19 at 05:00 Metoprolol Tartrate (Lopressor Vial) 10 mg PRN Q6HRS PRN IVP HYPERTENSION; Start 03/24/19 at 09:00; Stop 03/24/19 at 12:56; Status DC Potassium Chloride/Dextrose/ Sod Cl 1,000 ml @ 85 mls/hr [id number] IV Last administered on 03/25/19at 09:07; Start 03/24/19 at 09:00; Stop 03/25/19 at 15:59; Status DC Labetalol HCl (Normodyne Iv Push) 10 mg PRN Q2HR PRN IVP HYPERTENSION Last administered on 03/25/19at 04:44; Start 03/24/19 at 13:00 Labetalol HCl (Normodyne Iv Push) 20 mg 1X ONCE IVP Last administered on at 13:00; Start 03/24/19 at 13:00; Stop 03/24/19 at 13:01; Status DC Amino Acids/ Electrolytes/ Dextrose 1,000 ml @ 80 mls/hr [id number] IV Last administered on 03/26/19at 04:30; Start 03/25/19 at 16:00 Potassium Chloride/Water 100 ml @ 100 mls/hr Q1H IV ; Start 03/25/19 at 18:45; Stop 03/25/19 at 20:44; Status UNV Potassium Chloride/Water 100 ml @ 100 mls/hr Q1H IV Last administered on 2/2/20at 00:30; Start 03/25/19 at 19:00; Stop 03/25/19 at 22:59; Status DC Active Scripts Active Vitals/I & O Vital Sign - Last 24 Hours 03/25/19 03/25/19 03/25/19 03/25/19 11:00 13:54 14:26 15:00 Temp 98.6 98.5 98.6 98.5 Pulse 89 78 Resp 16 20 B/P (MAP) 154/98 (116) 165/107 (126) Pulse Ox 96 96 96 95 O2 Delivery Room Air Room Air Room Air Room Air O2 Flow Rate 4.0 4.0 03/25/19 03/25/19 03/25/19 03/26/19 19:00 20:00 23:00 03:00 Temp 98.6 98.8 98.5 98.6 98.8 98.5 Pulse 94 121 96 Resp 18 20 20 B/P (MAP) 169/104 (125) 176/115 (135) 168/99 (122) Pulse Ox 97 92 94 O2 Delivery Room Air Room Air Nasal Cannula Nasal Cannula O2 Flow Rate 2.0 2.0 03/26/19 07:35 Temp 98.3 98.3 Pulse 101 Resp 24 B/P (MAP) 161/104 (123) Intake and Output 03/25/19 03/25/19 03/26/19 15:00 23:00 07:00 Intake Total 0 ml 0 ml 0 ml Output Total 440 ml 85 ml Balance -440 ml -85 ml 0 ml CEDRIC EAGLE MD Mar 26, 2019 10:52
--- NOTE | 2019-03-26 12:07 | PDOC ---
SURGICAL PROGRESS NOTE Subjective d/w nursing--seizure last night confusion today currently able to tell me month, asking about what time game starts, not agitated Vital Signs Vital Signs Date Time Temp Pulse Resp B/P (MAP) Pulse Ox O2 Delivery O2 Flow Rate FiO2 03/26/19 10:18 98.6 115 20 152/108 (123) 98 Room Air 98.6 03/26/19 03:00 2.0 I&O Intake and Output 03/26/19 07:00 Intake Total 0 ml Output Total 525 ml Balance -525 ml Intake Oral 0 ml Output Urine Total 425 ml Drainage Total 100 ml General: Cooperative, No acute distress, Other (some tremors during exam) Abdomen: Soft, Other (drain in place, serous, incision c/d/i, no erythema ) Labs Laboratory Tests Test 03/25/19 05:33 03/26/19 06:50 03/26/19 07:37 White Blood Count 7.0 x10^3/uL (4.0-11.0) 8.8 x10^3/uL (4.0-11.0) Red Blood Count 4.49 x10^6/uL (4.30-5.70) 4.45 x10^6/uL (4.30-5.70) Hemoglobin 8.2 g/dL (13.0-17.5) 8.1 g/dL (13.0-17.5) Hematocrit 28.6 % (39.0-53.0) 28.3 % (39.0-53.0) Mean Corpuscular Volume 64 fL (79-100) 64 fL (79-100) Mean Corpuscular Hemoglobin 18 pg (25-35) 18 pg (25-35) Mean Corpuscular Hemoglobin Concent 29 g/dL (31-37) 29 g/dL (31-37) Red Cell Distribution Width 23.9 % (11.5-14.5) 24.7 % (11.5-14.5) Platelet Count 183 x10^3/uL (140-400) 181 x10^3/uL (140-400) Neutrophils (%) (Auto) 57 % (31-73) 54 % (31-73) Lymphocytes (%) (Auto) 21 % (24-48) 20 % (24-48) Monocytes (%) (Auto) 19 % (0-9) 24 % (0-9) Eosinophils (%) (Auto) 2 % (0-3) 1 % (0-3) Basophils (%) (Auto) 1 % (0-3) 1 % (0-3) Neutrophils # (Auto) 4.0 x10^3/uL (1.8-7.7) 4.8 x10^3/uL (1.8-7.7) Lymphocytes # (Auto) 1.5 x10^3/uL (1.0-4.8) 1.7 x10^3/uL (1.0-4.8) Monocytes # (Auto) 1.3 x10^3/uL (0.0-1.1) 2.1 x10^3/uL (0.0-1.1) Eosinophils # (Auto) 0.2 x10^3/uL (0.0-0.7) 0.1 x10^3/uL (0.0-0.7) Basophils # (Auto) 0.0 x10^3/uL (0.0-0.2) 0.1 x10^3/uL (0.0-0.2) Sodium Level 133 mmol/L (136-145) 138 mmol/L (136-145) Potassium Level 3.0 mmol/L (3.5-5.1) 3.2 mmol/L (3.5-5.1) Chloride Level 100 mmol/L (98-107) 104 mmol/L (98-107) Carbon Dioxide Level 23 mmol/L (21-32) 23 mmol/L (21-32) Anion Gap 10 (6-14) 11 (6-14) Blood Urea Nitrogen 8 mg/dL (8-26) 5 mg/dL (8-26) Creatinine 0.7 mg/dL (0.7-1.3) 0.7 mg/dL (0.7-1.3) Estimated GFR (Cockcroft-Gault) 117.1 117.1 Glucose Level 104 mg/dL (70-99) 101 mg/dL (70-99) Calcium Level 8.2 mg/dL (8.5-10.1) 8.2 mg/dL (8.5-10.1) Glucose (Fingerstick) 103 mg/dL (70-99) Laboratory Tests Test 03/26/19 06:50 03/26/19 07:37 White Blood Count 8.8 x10^3/uL (4.0-11.0) Red Blood Count 4.45 x10^6/uL (4.30-5.70) Hemoglobin 8.1 g/dL (13.0-17.5) Hematocrit 28.3 % (39.0-53.0) Mean Corpuscular Volume 64 fL (79-100) Mean Corpuscular Hemoglobin 18 pg (25-35) Mean Corpuscular Hemoglobin Concent 29 g/dL (31-37) Red Cell Distribution Width 24.7 % (11.5-14.5) Platelet Count 181 x10^3/uL (140-400) Neutrophils (%) (Auto) 54 % (31-73) Lymphocytes (%) (Auto) 20 % (24-48) Monocytes (%) (Auto) 24 % (0-9) Eosinophils (%) (Auto) 1 % (0-3) Basophils (%) (Auto) 1 % (0-3) Neutrophils # (Auto) 4.8 x10^3/uL (1.8-7.7) Lymphocytes # (Auto) 1.7 x10^3/uL (1.0-4.8) Monocytes # (Auto) 2.1 x10^3/uL (0.0-1.1) Eosinophils # (Auto) 0.1 x10^3/uL (0.0-0.7) Basophils # (Auto) 0.1 x10^3/uL (0.0-0.2) Sodium Level 138 mmol/L (136-145) Potassium Level 3.2 mmol/L (3.5-5.1) Chloride Level 104 mmol/L (98-107) Carbon Dioxide Level 23 mmol/L (21-32) Anion Gap 11 (6-14) Blood Urea Nitrogen 5 mg/dL (8-26) Creatinine 0.7 mg/dL (0.7-1.3) Estimated GFR (Cockcroft-Gault) 117.1 Glucose Level 101 mg/dL (70-99) Calcium Level 8.2 mg/dL (8.5-10.1) Glucose (Fingerstick) 103 mg/dL (70-99) Assessment/Plan NPO, PPN neurology consult ANGELLA EDMONDSON APRN Mar 26, 2019 12:07
[2019-03-26 13:29] LABS: ALBUMIN/GLOBULIN RATIO 0.9 (1.0-1.7); CALCIUM 8.6 mg/dL (8.5-10.1); CREATININE 0.7 mg/dL (0.7-1.3); GFR 117.1; POTASSIUM 3.3 mmol/L (3.5-5.1); TOTAL BILIRUBIN 0.8 mg/dL (0.2-1.0); TOTAL PROTEIN 6.2 g/dL (6.4-8.2)
--- NOTE | 2019-03-26 13:45 | PDOC2 ---
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 Following surgery he has gone through alcohol withdrawal and had a seizure last evening. He does report drinking a half gallon of vodka every 3 days. He has experienced alcohol withdrawal seizures on at least 4 occasions associated with acute alcohol withdrawal. He has not had seizures on occasions not associated with alcohol withdrawal. His examination was nonfocal. Blood work and a CT scan of the head has been ordered. He does not need regular anticonvulsants. He should continue with the alcohol withdrawal protocol. DATE: 03/26/19 TIME: 13:45 Current Medications Current Medications Current Medications Ondansetron HCl (Zofran) 4 mg PRN Q6HRS PRN IV NAUSEA/VOMITING; Start 03/20/19 at 07:00; Stop 03/21/19 at 06:59; Status DC Fentanyl Citrate (Fentanyl 2ml Vial) 25 mcg PRN Q5MIN PRN IV MILD PAIN 1-3; Start 03/20/19 at 07:00; Stop 03/21/19 at 06:59; Status DC Fentanyl Citrate (Fentanyl 2ml Vial) 50 mcg PRN Q5MIN PRN IV MODERATE TO SEVERE PAIN Last administered on 03/20/19at 16:48; Start 03/20/19 at 07:00; Stop 03/21/19 at 06:59; Status DC Morphine Sulfate (Morphine Sulfate) 1 mg PRN Q10MIN PRN IV SEVERE PAIN 7-10 Last administered on 03/20/19at 15:04; Start 03/20/19 at 07:00; Stop 03/21/19 at 06:59; Status DC Ringer's Solution 1,000 ml @ 30 mls/hr Q24H IV Last administered on 03/20/19at 10:15; Start 03/20/19 at 07:00; Stop 03/20/19 at 18:59; Status DC Lidocaine HCl (Xylocaine-Mpf 1% 2ml Vial) 2 ml PRN 1X PRN ID PRIOR TO IV START; Start 03/20/19 at 07:00; Stop 03/21/19 at 06:59; Status DC Hydromorphone HCl (Dilaudid) 0.5 mg PRN Q10MIN PRN IV SEV PAIN, Second choice; Start 03/20/19 at 07:00; Stop 03/21/19 at 06:59; Status DC Prochlorperazine Edisylate (Compazine) 5 mg PACU PRN PRN IV NAUSEA, MRX1 Last administered on 03/20/19at 15:03; Start 03/20/19 at 07:00; Stop 03/21/19 at 06:59; Status DC Cefoxitin Sodium (Mefoxin) 2 gm PREOP PRN PRN IVP PREOP Last administered on 03/20/19at 11:02; Start 03/20/19 at 06:00; Stop 03/22/19 at 11:21; Status DC Propofol 20 ml @ As Directed STK-MED ONCE IV ; Start 03/20/19 at 09:21; Stop 03/20/19 at 09:22; Status DC Lidocaine HCl (Lidocaine Pf 2% Vial) 5 ml STK-MED ONCE .ROUTE ; Start 03/20/19 at 09:21; Stop 03/20/19 at 09:22; Status DC Ondansetron HCl (Zofran) 4 mg STK-MED ONCE .ROUTE ; Start 03/20/19 at 09:21; Stop 03/20/19 at 09:22; Status DC Dexamethasone Sodium Phosphate (Decadron) 4 mg STK-MED ONCE .ROUTE ; Start 03/20/19 at 09:21; Stop 03/20/19 at 09:22; Status DC Rocuronium [place] (Zemuron) 50 mg STK-MED ONCE .ROUTE ; Start 03/20/19 at 09:21; Stop 03/20/19 at 09:22; Status DC Fentanyl Citrate (Fentanyl 2ml Vial) 100 mcg STK-MED ONCE .ROUTE ; Start 03/20/19 at 09:22; Stop 03/20/19 at 09:22; Status DC Midazolam HCl (Versed) 2 mg STK-MED ONCE .ROUTE ; Start 03/20/19 at 09:22; Stop 03/20/19 at 09:22; Status DC Sevoflurane (Ultane) 60 ml STK-MED ONCE IH ; Start 03/20/19 at 09:43; Stop 03/20/19 at 09:43; Status DC Bupivacaine HCl/ Epinephrine Bitart (Sensorcain-Epi 0.5%-1:030107 Mpf) 30 ml STK-MED ONCE .ROUTE Last administered on 03/20/19at 11:38; Start 03/20/19 at 10:14; Stop 03/20/19 at 10:15; Status DC Dexamethasone Sodium Phosphate (Decadron) 4 mg STK-MED ONCE .ROUTE ; Start 03/20/19 at 11:18; Stop 03/20/19 at 11:19; Status DC Fentanyl Citrate (Fentanyl 2ml Vial) 100 mcg STK-MED ONCE .ROUTE ; Start 03/20/19 at 11:38; Stop 03/20/19 at 11:39; Status DC Cellulose (Surgicel Hemostat 4x8) 1 each STK-MED ONCE .ROUTE Last administered on 03/20/19at 12:24; Start 03/20/19 at 12:24; Stop 03/20/19 at 12:24; Status DC Phenylephrine HCl (PHENYLEPHRINE in 0.9% NACL PF) 1 mg STK-MED ONCE IV ; Start 03/20/19 at 12:25; Stop 03/20/19 at 12:25; Status DC Ephedrine Sulfate (ePHEDrine PF IN SALINE SYRINGE) 50 mg STK-MED ONCE IV ; Start 03/20/19 at 12:25; Stop 03/20/19 at 12:25; Status DC Neostigmine [place] (Neostigmine Methylsulfate) 5 mg STK-MED ONCE .ROUTE ; Start 03/20/19 at 12:25; Stop 03/20/19 at 12:25; Status DC Glycopyrrolate (Robinul) 1 mg STK-MED ONCE .ROUTE ; Start 03/20/19 at 12:25; Stop 03/20/19 at 12:26; Status DC Rocuronium [place] (Zemuron) 50 mg STK-MED ONCE .ROUTE ; Start 03/20/19 at 12:33; Stop 03/20/19 at 12:33; Status DC Cefoxitin Sodium (Mefoxin) 2 gm 1X ONCE IVP Last administered on 03/20/19at 13:02; Start 03/20/19 at 12:45; Stop 03/20/19 at 12:46; Status DC Albumin Human 500 ml @ As Directed STK-MED ONCE IV ; Start 03/20/19 at 13:05; Stop 03/20/19 at 13:05; Status DC Propofol 20 ml @ As Directed STK-MED ONCE IV ; Start 03/20/19 at 14:06; Stop 03/20/19 at 14:06; Status DC Desflurane (Suprane) 90 ml STK-MED ONCE IH ; Start 03/20/19 at 14:11; Stop 03/20/19 at 14:11; Status DC Famotidine (Pepcid Vial) 20 mg BID IVP Last administered on 03/26/19 09:16; Start 03/20/19 at 21:00 Enoxaparin Sodium (Lovenox 40mg Syringe) 40 mg Q24H SQ Last administered on 03/26/19 09:16; Start 03/21/19 at 09:00 Sodium Chloride (Normal Saline Flush) 3 ml QSHIFT PRN IV AFTER MEDS AND BLOOD DRAWS; Start 03/20/19 at 14:30 Ringer's Solution 1,000 ml @ 100 mls/hr Q10H IV Last administered on 03/23/19at 16:56; Start 03/20/19 at 14:27; Stop 03/24/19 at 08:56; Status DC Naloxone HCl (Narcan) 0.4 mg PRN Q2MIN PRN IV SEE INSTRUCTIONS; Start 03/20/19 at 14:30 Sodium Chloride 1,000 ml @ 25 mls/hr Q24H IV Last administered on 03/25/19at 14:27; Start 03/20/19 at 14:27 Morphine Sulfate 30 ml @ 0 mls/hr CONT PRN PRN IV PER PROTOCOL Last administered on 03/25/19at 13:54; Start 03/20/19 at 14:30 Ondansetron HCl (Zofran) 4 mg PRN Q6HRS PRN IVP NAUESA, 1ST CHOICE Last administered on 03/23/19at 16:56; Start 03/20/19 at 14:30 Lorazepam (Ativan Inj) 2 mg PRN Q1HR PRN IV For CIWA 8-14 Last administered on 03/26/19at 05:00; Start 03/20/19 at 20:00 Lorazepam (Ativan Inj) 4 mg PRN Q1HR PRN IV For CIWA 15 or greater Last administered on 03/26/19at 09:16; Start 03/20/19 at 20:00 Metoprolol Tartrate (Lopressor Vial) 5 mg PRN Q6HRS PRN IVP HYPERTENSION Last administered on 03/23/19at 04:38; Start 03/20/19 at 23:30; Stop 03/24/19 at 08:56; Status DC Dexmedetomidine HCl 400 mcg/ Sodium Chloride 100 ml @ 0 mls/hr CONT PRN IV AGITATION Last administered on 03/23/19at 05:08; Start 03/21/19 at 23:15; Stop 03/24/19 at 03:59; Status DC Sodium Chloride 500 ml @ 500 mls/hr 1X PRN PRN IV ANXIETY / AGITATION; Start 03/21/19 at 23:15; Status Cancel Atropine Sulfate (ATROPINE 0.5mg SYRINGE) 0.5 mg PRN Q5MIN PRN IV SEE COMMENTS; Start 03/21/19 at 23:15 Haloperidol Lactate (Haldol Inj) 5 mg PRN Q4HRS PRN IVP Hallucinatns,Confusn,Delirium Last administered on 03/23/19at 03:40; Start 03/22/19 at 11:30 Diphenhydramine HCl (Benadryl) 25 mg PRN Q15MIN PRN IVP EPS symptoms 2'Haldol admin Last administered on 03/23/19at 03:58; Start 03/22/19 at 11:30 Multivitamins 10 ml/Thiamine HCl 100 mg/Folic Acid 1 mg/Sodium Chloride 1,011.2 ml @ 100 mls/ hr DAILY IV Last administered on 03/26/19at 09:15; Start 03/22/19 at 21:00; Stop 03/26/19 at 19:07 Thiamine HCl 100 mg/Dextrose 51 ml @ 100 mls/hr DAILY IV ; Start 03/22/19 at 21:00; Stop 03/26/19 at 09:31; Status UNV Ziprasidone (Geodon Im) 10 mg PRN Q6HRS PRN IM Agitation; Start 03/23/19 at 05:00 Metoprolol Tartrate (Lopressor Vial) 10 mg PRN Q6HRS PRN IVP HYPERTENSION; Start 03/24/19 at 09:00; Stop 03/24/19 at 12:56; Status DC Potassium Chloride/Dextrose/ Sod Cl 1,000 ml @ 85 mls/hr [id number] IV Last administered on 03/25/19at 09:07; Start 03/24/19 at 09:00; Stop 03/25/19 at 15:59; Status DC Labetalol HCl (Normodyne Iv Push) 10 mg PRN Q2HR PRN IVP HYPERTENSION Last administered on 03/25/19at 04:44; Start 03/24/19 at 13:00 Labetalol HCl (Normodyne Iv Push) 20 mg 1X ONCE IVP Last administered on 03/24/19at 13:00; Start 03/24/19 at 13:00; Stop 03/24/19 at 13:01; Status DC Amino Acids/ Electrolytes/ Dextrose 1,000 ml @ 80 mls/hr [id number] IV Last administered on 03/26/19at 04:30; Start 03/25/19 at 16:00 Potassium Chloride/Water 100 ml @ 100 mls/hr Q1H IV ; Start 03/25/19 at 18:45; Stop 03/25/19 at 20:44; Status UNV Potassium Chloride/Water 100 ml @ 100 mls/hr Q1H IV Last administered on 03/26/19at 00:30; Start 03/25/19 at 19:00; Stop 03/25/19 at 22:59; Status DC Active Scripts Active Allergies Allergies: Coded Allergies: No Known Drug Allergies (Unverified , 03/20/19) Vitals VITALS Vital Signs Date Time Temp Pulse Resp B/P (MAP) Pulse Ox O2 Delivery O2 Flow Rate FiO2 03/26/19 10:18 98.6 115 20 152/108 (123) 98 Room Air 98.6 03/26/19 03:00 2.0 Labs Labs Laboratory Tests Test 03/25/19 05:33 03/26/19 06:50 03/26/19 07:37 White Blood Count 7.0 x10^3/uL (4.0-11.0) 8.8 x10^3/uL (4.0-11.0) Red Blood Count 4.49 x10^6/uL (4.30-5.70) 4.45 x10^6/uL (4.30-5.70) Hemoglobin 8.2 g/dL (13.0-17.5) 8.1 g/dL (13.0-17.5) Hematocrit 28.6 % (39.0-53.0) 28.3 % (39.0-53.0) Mean Corpuscular Volume 64 fL (79-100) 64 fL (79-100) Mean Corpuscular Hemoglobin 18 pg (25-35) 18 pg (25-35) Mean Corpuscular Hemoglobin Concent 29 g/dL (31-37) 29 g/dL (31-37) Red Cell Distribution Width 23.9 % (11.5-14.5) 24.7 % (11.5-14.5) Platelet Count 183 x10^3/uL (140-400) 181 x10^3/uL (140-400) Neutrophils (%) (Auto) 57 % (31-73) 54 % (31-73) Lymphocytes (%) (Auto) 21 % (24-48) 20 % (24-48) Monocytes (%) (Auto) 19 % (0-9) 24 % (0-9) Eosinophils (%) (Auto) 2 % (0-3) 1 % (0-3) Basophils (%) (Auto) 1 % (0-3) 1 % (0-3) Neutrophils # (Auto) 4.0 x10^3/uL (1.8-7.7) 4.8 x10^3/uL (1.8-7.7) Lymphocytes # (Auto) 1.5 x10^3/uL (1.0-4.8) 1.7 x10^3/uL (1.0-4.8) Monocytes # (Auto) 1.3 x10^3/uL (0.0-1.1) 2.1 x10^3/uL (0.0-1.1) Eosinophils # (Auto) 0.2 x10^3/uL (0.0-0.7) 0.1 x10^3/uL (0.0-0.7) Basophils # (Auto) 0.0 x10^3/uL (0.0-0.2) 0.1 x10^3/uL (0.0-0.2) Sodium Level 133 mmol/L (136-145) 139 mmol/L (136-145) Potassium Level 3.0 mmol/L (3.5-5.1) 3.3 mmol/L (3.5-5.1) Chloride Level 100 mmol/L (98-107) 105 mmol/L (98-107) Carbon Dioxide Level 23 mmol/L (21-32) 23 mmol/L (21-32) Anion Gap 10 (6-14) 11 (6-14) Blood Urea Nitrogen 8 mg/dL (8-26) 6 mg/dL (8-26) Creatinine 0.7 mg/dL (0.7-1.3) 0.7 mg/dL (0.7-1.3) Estimated GFR (Cockcroft-Gault) 117.1 117.1 Glucose Level 104 mg/dL (70-99) 101 mg/dL (70-99) Calcium Level 8.2 mg/dL (8.5-10.1) 8.6 mg/dL (8.5-10.1) BUN/Creatinine Ratio 9 (6-20) Total Bilirubin 0.8 mg/dL (0.2-1.0) Aspartate Amino Transf (AST/SGOT) 31 U/L (15-37) Alanine Aminotransferase (ALT/SGPT) 31 U/L (16-63) Alkaline Phosphatase 51 U/L (46-116) Total Protein 6.2 g/dL (6.4-8.2) Albumin 3.0 g/dL (3.4-5.0) Albumin/Globulin Ratio 0.9 (1.0-1.7) Thyroid Stimulating Hormone (TSH) 2.189 uIU/mL (0.358-3.74) Glucose (Fingerstick) 103 mg/dL (70-99) Laboratory Tests Test 03/26/19 06:50 03/26/19 07:37 White Blood Count 8.8 x10^3/uL (4.0-11.0) Red Blood Count 4.45 x10^6/uL (4.30-5.70) Hemoglobin 8.1 g/dL (13.0-17.5) Hematocrit 28.3 % (39.0-53.0) Mean Corpuscular Volume 64 fL (79-100) Mean Corpuscular Hemoglobin 18 pg (25-35) Mean Corpuscular Hemoglobin Concent 29 g/dL (31-37) Red Cell Distribution Width 24.7 % (11.5-14.5) Platelet Count 181 x10^3/uL (140-400) Neutrophils (%) (Auto) 54 % (31-73) Lymphocytes (%) (Auto) 20 % (24-48) Monocytes (%) (Auto) 24 % (0-9) Eosinophils (%) (Auto) 1 % (0-3) Basophils (%) (Auto) 1 % (0-3) Neutrophils # (Auto) 4.8 x10^3/uL (1.8-7.7) Lymphocytes # (Auto) 1.7 x10^3/uL (1.0-4.8) Monocytes # (Auto) 2.1 x10^3/uL (0.0-1.1) Eosinophils # (Auto) 0.1 x10^3/uL (0.0-0.7) Basophils # (Auto) 0.1 x10^3/uL (0.0-0.2) Sodium Level 139 mmol/L (136-145) Potassium Level 3.3 mmol/L (3.5-5.1) Chloride Level 105 mmol/L (98-107) Carbon Dioxide Level 23 mmol/L (21-32) Anion Gap 11 (6-14) Blood Urea Nitrogen 6 mg/dL (8-26) Creatinine 0.7 mg/dL (0.7-1.3) Estimated GFR (Cockcroft-Gault) 117.1 BUN/Creatinine Ratio 9 (6-20) Glucose Level 101 mg/dL (70-99) Calcium Level 8.6 mg/dL (8.5-10.1) Total Bilirubin 0.8 mg/dL (0.2-1.0) Aspartate Amino Transf (AST/SGOT) 31 U/L (15-37) Alanine Aminotransferase (ALT/SGPT) 31 U/L (16-63) Alkaline Phosphatase 51 U/L (46-116) Total Protein 6.2 g/dL (6.4-8.2) Albumin 3.0 g/dL (3.4-5.0) Albumin/Globulin Ratio 0.9 (1.0-1.7) Thyroid Stimulating Hormone (TSH) 2.189 uIU/mL (0.358-3.74) Glucose (Fingerstick) 103 mg/dL (70-99) REBA JUAN MD Mar 26, 2019 13:45
[2019-03-26] MEDS: ONDANSETRON PF 4 MG/2 ML VIAL. IVP PRN (13:54)
[2019-03-26] MEDS: IV NORMAL SALINE 1000ML BAG 1,000 ML IV SCH (14:27)
[2019-03-26 15:30] VITALS: BP_SYST 129; BP_SYST 155; BP_DIAS 109; BP_DIAS 55
[2019-03-26] MEDS: HALOPERIDOL LACTATE 5 MG/ML VIAL. IVP PRN (15:38)
[2019-03-26] MEDS ORDERED: POTASSIUM CHLORIDE 20MEQ 100 ML IV SCH (16:00)
[2019-03-26 20:05] VITALS: BP 169/104
--- NOTE | 2019-03-26 23:18 | CONS ---
DATE OF CONSULTATION: 03/26/2019 REFERRING PHYSICIAN: Maria L Govea DO REASON FOR CONSULTATION: Alcohol withdrawal seizure. HISTORY OF PRESENT ILLNESS: The patient is a 53-year-old man admitted to [facility] on 03/20/2019 for elective resection of a gastrointestinal stromal tumor. He underwent the surgery without any complication by Dr. Houston. Following the surgery, he started to go through alcohol withdrawal. His last drink was a day prior to admission. He states he does drink vodka. He will go through a half gallon handle of vodka about every 3 days. He has experienced alcohol withdrawal symptoms previously. He recalls there have been 3 or 4 occasions when he has gone through alcohol withdrawal and suffered a seizure. He did suffer a seizure at [facility] on 03/25/2019. He had been undergoing alcohol withdrawal protocol and was improving and the medicines were reduced and then he started to go through withdrawal again. He does not complain of any headache or pain. According to nurse, he has been agitated, confused and trying to climb out of bed. PAST MEDICAL HISTORY: 1. Alcoholism. 2. Hypertension. 3. Anxiety. 4. Gastroesophageal reflux disease. 5. Gastrointestinal stromal tumor, status post resection. ALLERGIES: No known allergies to drugs. CURRENT MEDICATIONS: Labetalol as needed, Geodon as needed, multivitamin with minerals, diphenhydramine as needed, Haldol as needed, atropine as needed, Lovenox 40 mg subcutaneous, famotidine 20 mg IV twice per day, lorazepam as needed, Zofran as needed, morphine as needed, naloxone as needed. FAMILY HISTORY: Hypertension. SOCIAL HISTORY: He works at [employer] doing [employer]. He is . 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 He has 2 daughters. One daughter is in nursing school and the other daughter is in high school. He drinks a handle of vodka every 3 days. REVIEW OF SYSTEMS: He does not complain of any headache. There has been no change of vision or hearing. He is not aware of any cognitive changes. He has been able to chew and swallow without choking. He has not had any nose or sinus trouble. He does not feel short of breath, have chest or abdominal pain. He does have some postoperative pain. He has not had fever or rash. Denies any gastrointestinal or genitourinary complaint. Does not have any psychiatric concerns at this time. He does feel a little cool. He does not complain of numbness or focal weakness. PHYSICAL EXAMINATION: VITAL SIGNS: The blood pressure was 152/108, pulse 115, respirations 20, temperature 98.6 degrees Fahrenheit orally. Oximetry was 98% on room air. His weight was 87.1 kilograms, height 69 inches with a calculated body mass index of 28.4. GENERAL: He was alert, awake and cooperative. Speech was fluent and clear. His fund of knowledge seemed fair. Attention and concentration was fair. He was not oriented to the name of the hospital. He thought the year was 2001 and the month was February. He appeared well groomed and well nourished. He looked a little tremulous. NEUROLOGIC: Examination of the cranial nerves revealed visual reno were full to confrontation. Extraocular movements were intact. The eyes were conjugate. Pursuit movements were smooth and saccadic eye movements were without dysmetria. Pupils were 3 mm and reactive. He had difficulty cooperating for funduscopic exam. On the left side, he did not have any papilledema. Facial sensation was intact. The muscles of mastication and facial expression were powerful symmetrically. Hearing was intact to finger rub. The palate arched symmetrically and the tongue was midline with full range of motion. Sternocleidomastoid and trapezius were powerful. Muscle bulk and tone was normal. There was no arm drift or abnormal movement. There was no leg drift. He did not have any asterixis. Power was full and symmetric in the upper and lower extremities. Reflexes were diminished throughout. The toes were not upgoing. Coordination testing with [id number], [id number], fine motor and rapid alternating movements was only fair. Sensory examination was intact to pain, light touch, proprioception, graphesthesia, cold thermal and vibration. There was no extinction to double simultaneous stimulation. Gait was not testable. NECK: Auscultation of the carotid arteries did not reveal a bruit. HEART: Rhythm is regular, without a murmur. EXTREMITIES: Peripheral pulses were symmetric in the hands and feet. There was no edema or cyanosis of the extremities. REVIEW OF LABORATORY DATA: CBC was performed 03/26/2019 revealing a normal white blood cell count, but hemoglobin was low at 8.1, hematocrit at 28.3, and platelet count normal at 181. Chemistries were performed 03/25/2019 revealing a sodium of 133, potassium was 3, chloride and CO2 were normal. BUN and creatinine were normal. The GFR calculated at 117.1. Glucose was 104. Calcium was low at 8.2. IMPRESSION: The patient is a 53-year-old man who underwent surgical resection of a tumor on 03/20/2019. He drinks a significant amount of alcohol. He started to go through alcohol withdrawal and last evening did have a seizure. He does report he has gone through alcohol withdrawal at least 4 previous times and did experience a seizure associated with the alcohol withdrawal. He denies seizures at other times. Neurologic exam was nonfocal and is consistent with alcohol withdrawal. RECOMMENDATIONS: I would continue with alcohol withdrawal protocol. He does not require specific anticonvulsants on a regular basis. I will obtain a CT scan of the head without contrast to make certain there is not any intracranial lesion, which contributed to the seizure. I will check some labs with a comprehensive metabolic profile, ammonia, B12 and TSH. I appreciate being involved in his care. REBA JUAN MD DR: STEFFI/carmela JOB#: [id number] / [id number] CARMEN Snyder MD, FERILYN MD
[2019-03-26 23:45] VITALS: BP 169/104
[2019-03-27 04:15] VITALS: BP 169/108
[2019-03-27] MEDS: LABETALOL 20 MG/4 ML DISP.SYRIN. IVP PRN (06:04)
[2019-03-27] MEDS: AA 4.25 %/CALCIUM/LYTES/D5W 1,000 ML IV SCH (06:04)
[2019-03-27 07:00] VITALS: BP 160/100
[2019-03-27 08:03] LABS: BASO # 0.1 x10^3/uL (0.0-0.2); BASO % 1 % (0-3); EOS # 0.1 x10^3/uL (0.0-0.7); EOS % 2 % (0-3); HEMATOCRIT 28.8 % (39.0-53.0); HEMOGLOBIN 8.2 g/dL (13.0-17.5); LYMPH # 1.4 x10^3/uL (1.0-4.8); LYMPH % 19 % (24-48); MEAN CORPUSCULAR HEMOGLOBIN 18 pg (25-35); MEAN CORPUSCULAR HGB CONC 29 g/dL (31-37); MEAN CORPUSCULAR VOLUME 64 fL (79-100); MONO # 1.6 x10^3/uL (0.0-1.1); MONO % 22 % (0-9); NEUT # 4.1 x10^3/uL (1.8-7.7); NEUT % 56 % (31-73); PLATELET COUNT 246 x10^3/uL (140-400); RED BLOOD COUNT 4.51 x10^6/uL (4.30-5.70); RED CELL DISTRIBUTION WIDTH 24.5 % (11.5-14.5); WHITE BLOOD COUNT 7.4 x10^3/uL (4.0-11.0)
[2019-03-27 08:09] LABS: ALBUMIN/GLOBULIN RATIO 0.9 (1.0-1.7); CALCIUM 8.6 mg/dL (8.5-10.1); CREATININE 0.8 mg/dL (0.7-1.3); GFR 100.4; POTASSIUM 3.4 mmol/L (3.5-5.1); TOTAL BILIRUBIN 0.9 mg/dL (0.2-1.0); TOTAL PROTEIN 6.4 g/dL (6.4-8.2)
[2019-03-27] MEDS: FAMOTIDINE 20 MG/2 ML VIAL IVP SCH ×2 (08:17→20:18)
[2019-03-27] MEDS: ENOXAPARIN 40 MG/0.4 ML SYRINGE. SQ SCH (08:18)
--- NOTE | 2019-03-27 08:42 | RAD ---
EXAM: Head CT without contrast. HISTORY: Seizure. TECHNIQUE: Computed tomographic images of the head were obtained without contrast. *One or more of the following individualized dose reduction techniques were utilized for this examination: 1. Automated exposure control. 2. Adjustment of the mA and/or kV according to patient size. 3. Use of iterative reconstruction technique. COMPARISON: 10/01/2016. FINDINGS: There is no acute or subacute extra-axial or intraparenchymal hemorrhage. There is no mass effect or midline shift. There is no hydrocephalus. There are areas of decreased attenuation within the cerebral white matter, nonspecific and likely related to chronic small vessel disease. There is cerebral volume loss. The visualized portions of the orbits, paranasal sinuses and mastoid air cells are unremarkable. No suspicious calvarial lesion is seen. IMPRESSION: 1. No acute intracranial finding. 2. Bilateral cerebral white matter changes, likely due to chronic small vessel disease. 3. Cerebral volume loss. Electronically signed by: Rosibel Hester MD (03/27/2019 8:39 AM) [id number]
--- NOTE | 2019-03-27 08:44 | PDOC ---
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 c/w severe abuse seizure last night 03/25 NEUROLOGY CONSULTED, on withdrawal precautions, ct head pending / hx Bilateral temporomandibular joint dislocations, 10/08 post seizure Accel HTN - started on amlodipine Sinus tachy Alcoholism - levels 208 Microcytic anemia - Differential includes colon or gastric cancer, Henry's, peptic ulcer disease,irritable bowel disease, arteriovenous malformations and/or bone marrow suppression with alcohol 37 min pt exam, chart review, > 50% of time spent with exam, chart review, pt care coordination History of Present Illness History of Present Illness Mr Lozada is a 53 yo w/ PMHx ETOH abuse, HTN, anxiety, GERD, admitted on 03/20/2019 for elective resection of a gastrointestinal stromal tumor. He underwent the surgery without any complication by Dr. Houston. Following the surgery, he started to go through alcohol withdrawal. His last drink was a day prior to admission. He states he does drink vodka. He will go through a half gallon handle of vodka about every 3 days. He has experienced alcohol withdrawal symptoms previously. He recalls there have been 3 or 4 occasions when he has gone through alcohol withdrawal and suffered a seizure. He did suffer a seizure at [facility] on . He had been undergoing alcohol withdrawal protocol and was improving and the medicines were reduced and then he started to go through withdrawal again. He does not complain of any headache or pain. According to nurse, he had been agitated, confused and trying to climb out of bed. Still NPO per GS. hypokalemia on replacement iv. He is much more alert today. bedside. He is asking for liquid diet today. Abdominal pain minimal. Plan: LAbetolol prn - dw RN dw NPO per gS IS Vitals Vitals Vital Signs Date Time Temp Pulse Resp B/P (MAP) Pulse Ox O2 Delivery O2 Flow Rate FiO2 03/27/19 07:00 99.8 89 16 160/100 (120) 95 Room Air 99.8 03/27/19 04:15 2.0 Physical Exam General: Alert, Oriented X3, Cooperative, No acute distress Heart: Regular rate, No murmurs Lungs: Clear Abdomen: Soft, Other (drain in place, serous, incision c/d/i, no erythema ) Extremities: No cyanosis, No edema Skin: No rashes, No significant lesion Labs LABS Laboratory Tests Test 03/26/19 13:25 03/26/19 23:48 03/27/19 06:15 Ammonia < 10 mcmol/L (11-34) Glucose (Fingerstick) 100 mg/dL (70-99) White Blood Count 7.4 x10^3/uL (4.0-11.0) Red Blood Count 4.51 x10^6/uL (4.30-5.70) Hemoglobin 8.2 g/dL (13.0-17.5) Hematocrit 28.8 % (39.0-53.0) Mean Corpuscular Volume 64 fL (79-100) Mean Corpuscular Hemoglobin 18 pg (25-35) Mean Corpuscular Hemoglobin Concent 29 g/dL (31-37) Red Cell Distribution Width 24.5 % (11.5-14.5) Platelet Count 246 x10^3/uL (140-400) Neutrophils (%) (Auto) 56 % (31-73) Lymphocytes (%) (Auto) 19 % (24-48) Monocytes (%) (Auto) 22 % (0-9) Eosinophils (%) (Auto) 2 % (0-3) Basophils (%) (Auto) 1 % (0-3) Neutrophils # (Auto) 4.1 x10^3/uL (1.8-7.7) Lymphocytes # (Auto) 1.4 x10^3/uL (1.0-4.8) Monocytes # (Auto) 1.6 x10^3/uL (0.0-1.1) Eosinophils # (Auto) 0.1 x10^3/uL (0.0-0.7) Basophils # (Auto) 0.1 x10^3/uL (0.0-0.2) Sodium Level 140 mmol/L (136-145) Potassium Level 3.4 mmol/L (3.5-5.1) Chloride Level 105 mmol/L (98-107) Carbon Dioxide Level 21 mmol/L (21-32) Anion Gap 14 (6-14) Blood Urea Nitrogen 7 mg/dL (8-26) Creatinine 0.8 mg/dL (0.7-1.3) Estimated GFR (Cockcroft-Gault) 100.4 BUN/Creatinine Ratio 9 (6-20) Glucose Level 94 mg/dL (70-99) Calcium Level 8.6 mg/dL (8.5-10.1) Total Bilirubin 0.9 mg/dL (0.2-1.0) Aspartate Amino Transf (AST/SGOT) 28 U/L (15-37) Alanine Aminotransferase (ALT/SGPT) 28 U/L (16-63) Alkaline Phosphatase 58 U/L (46-116) Total Protein 6.4 g/dL (6.4-8.2) Albumin 3.0 g/dL (3.4-5.0) Albumin/Globulin Ratio 0.9 (1.0-1.7) Comment Review of Relevant I have reviewed the following items lana (where applicable) has been applied. Labs Laboratory Tests Test 03/26/19 06:50 03/26/19 07:37 03/26/19 13:25 03/26/19 23:48 White Blood Count 8.8 x10^3/uL (4.0-11.0) Red Blood Count 4.45 x10^6/uL (4.30-5.70) Hemoglobin 8.1 g/dL (13.0-17.5) Hematocrit 28.3 % (39.0-53.0) Mean Corpuscular Volume 64 fL (79-100) Mean Corpuscular Hemoglobin 18 pg (25-35) Mean Corpuscular Hemoglobin Concent 29 g/dL (31-37) Red Cell Distribution Width 24.7 % (11.5-14.5) Platelet Count 181 x10^3/uL (140-400) Neutrophils (%) (Auto) 54 % (31-73) Lymphocytes (%) (Auto) 20 % (24-48) Monocytes (%) (Auto) 24 % (0-9) Eosinophils (%) (Auto) 1 % (0-3) Basophils (%) (Auto) 1 % (0-3) Neutrophils # (Auto) 4.8 x10^3/uL (1.8-7.7) Lymphocytes # (Auto) 1.7 x10^3/uL (1.0-4.8) Monocytes # (Auto) 2.1 x10^3/uL (0.0-1.1) Eosinophils # (Auto) 0.1 x10^3/uL (0.0-0.7) Basophils # (Auto) 0.1 x10^3/uL (0.0-0.2) Sodium Level 139 mmol/L (136-145) Potassium Level 3.3 mmol/L (3.5-5.1) Chloride Level 105 mmol/L (98-107) Carbon Dioxide Level 23 mmol/L (21-32) Anion Gap 11 (6-14) Blood Urea Nitrogen 6 mg/dL (8-26) Creatinine 0.7 mg/dL (0.7-1.3) Estimated GFR (Cockcroft-Gault) 117.1 BUN/Creatinine Ratio 9 (6-20) Glucose Level 101 mg/dL (70-99) Calcium Level 8.6 mg/dL (8.5-10.1) Total Bilirubin 0.8 mg/dL (0.2-1.0) Aspartate Amino Transf (AST/SGOT) 31 U/L (15-37) Alanine Aminotransferase (ALT/SGPT) 31 U/L (16-63) Alkaline Phosphatase 51 U/L (46-116) Total Protein 6.2 g/dL (6.4-8.2) Albumin 3.0 g/dL (3.4-5.0) Albumin/Globulin Ratio 0.9 (1.0-1.7) Thyroid Stimulating Hormone (TSH) 2.189 uIU/mL (0.358-3.74) Glucose (Fingerstick) 103 mg/dL (70-99) 100 mg/dL (70-99) Ammonia < 10 mcmol/L (11-34) Test 03/27/19 06:15 White Blood Count 7.4 x10^3/uL (4.0-11.0) Red Blood Count 4.51 x10^6/uL (4.30-5.70) Hemoglobin 8.2 g/dL (13.0-17.5) Hematocrit 28.8 % (39.0-53.0) Mean Corpuscular Volume 64 fL (79-100) Mean Corpuscular Hemoglobin 18 pg (25-35) Mean Corpuscular Hemoglobin Concent 29 g/dL (31-37) Red Cell Distribution Width 24.5 % (11.5-14.5) Platelet Count 246 x10^3/uL (140-400) Neutrophils (%) (Auto) 56 % (31-73) Lymphocytes (%) (Auto) 19 % (24-48) Monocytes (%) (Auto) 22 % (0-9) Eosinophils (%) (Auto) 2 % (0-3) Basophils (%) (Auto) 1 % (0-3) Neutrophils # (Auto) 4.1 x10^3/uL (1.8-7.7) Lymphocytes # (Auto) 1.4 x10^3/uL (1.0-4.8) Monocytes # (Auto) 1.6 x10^3/uL (0.0-1.1) Eosinophils # (Auto) 0.1 x10^3/uL (0.0-0.7) Basophils # (Auto) 0.1 x10^3/uL (0.0-0.2) Sodium Level 140 mmol/L (136-145) Potassium Level 3.4 mmol/L (3.5-5.1) Chloride Level 105 mmol/L (98-107) Carbon Dioxide Level 21 mmol/L (21-32) Anion Gap 14 (6-14) Blood Urea Nitrogen 7 mg/dL (8-26) Creatinine 0.8 mg/dL (0.7-1.3) Estimated GFR (Cockcroft-Gault) 100.4 BUN/Creatinine Ratio 9 (6-20) Glucose Level 94 mg/dL (70-99) Calcium Level 8.6 mg/dL (8.5-10.1) Total Bilirubin 0.9 mg/dL (0.2-1.0) Aspartate Amino Transf (AST/SGOT) 28 U/L (15-37) Alanine Aminotransferase (ALT/SGPT) 28 U/L (16-63) Alkaline Phosphatase 58 U/L (46-116) Total Protein 6.4 g/dL (6.4-8.2) Albumin 3.0 g/dL (3.4-5.0) Albumin/Globulin Ratio 0.9 (1.0-1.7) Laboratory Tests Test 03/26/19 13:25 03/26/19 23:48 03/27/19 06:15 Ammonia < 10 mcmol/L (11-34) Glucose (Fingerstick) 100 mg/dL (70-99) White Blood Count 7.4 x10^3/uL (4.0-11.0) Red Blood Count 4.51 x10^6/uL (4.30-5.70) Hemoglobin 8.2 g/dL (13.0-17.5) Hematocrit 28.8 % (39.0-53.0) Mean Corpuscular Volume 64 fL (79-100) Mean Corpuscular Hemoglobin 18 pg (25-35) Mean Corpuscular Hemoglobin Concent 29 g/dL (31-37) Red Cell Distribution Width 24.5 % (11.5-14.5) Platelet Count 246 x10^3/uL (140-400) Neutrophils (%) (Auto) 56 % (31-73) Lymphocytes (%) (Auto) 19 % (24-48) Monocytes (%) (Auto) 22 % (0-9) Eosinophils (%) (Auto) 2 % (0-3) Basophils (%) (Auto) 1 % (0-3) Neutrophils # (Auto) 4.1 x10^3/uL (1.8-7.7) Lymphocytes # (Auto) 1.4 x10^3/uL (1.0-4.8) Monocytes # (Auto) 1.6 x10^3/uL (0.0-1.1) Eosinophils # (Auto) 0.1 x10^3/uL (0.0-0.7) Basophils # (Auto) 0.1 x10^3/uL (0.0-0.2) Sodium Level 140 mmol/L (136-145) Potassium Level 3.4 mmol/L (3.5-5.1) Chloride Level 105 mmol/L (98-107) Carbon Dioxide Level 21 mmol/L (21-32) Anion Gap 14 (6-14) Blood Urea Nitrogen 7 mg/dL (8-26) Creatinine 0.8 mg/dL (0.7-1.3) Estimated GFR (Cockcroft-Gault) 100.4 BUN/Creatinine Ratio 9 (6-20) Glucose Level 94 mg/dL (70-99) Calcium Level 8.6 mg/dL (8.5-10.1) Total Bilirubin 0.9 mg/dL (0.2-1.0) Aspartate Amino Transf (AST/SGOT) 28 U/L (15-37) Alanine Aminotransferase (ALT/SGPT) 28 U/L (16-63) Alkaline Phosphatase 58 U/L (46-116) Total Protein 6.4 g/dL (6.4-8.2) Albumin 3.0 g/dL (3.4-5.0) Albumin/Globulin Ratio 0.9 (1.0-1.7) Medications Current Medications Ondansetron HCl (Zofran) 4 mg PRN Q6HRS PRN IV NAUSEA/VOMITING; Start 03/20/19 at 07:00; Stop 03/21/19 at 06:59; Status DC Fentanyl Citrate (Fentanyl 2ml Vial) 25 mcg PRN Q5MIN PRN IV MILD PAIN 1-3; Start 03/20/19 at 07:00; Stop 03/21/19 at 06:59; Status DC Fentanyl Citrate (Fentanyl 2ml Vial) 50 mcg PRN Q5MIN PRN IV MODERATE TO SEVERE PAIN Last administered on 03/20/19at 16:48; Start 03/20/19 at 07:00; Stop 03/21/19 at 06:59; Status DC Morphine Sulfate (Morphine Sulfate) 1 mg PRN Q10MIN PRN IV SEVERE PAIN 7-10 Last administered on 03/20/19at 15:04; Start 03/20/19 at 07:00; Stop 03/21/19 at 06:59; Status DC Ringer's Solution 1,000 ml @ 30 mls/hr Q24H IV Last administered on 03/20/19at 10:15; Start 03/20/19 at 07:00; Stop 03/20/19 at 18:59; Status DC Lidocaine HCl (Xylocaine-Mpf 1% 2ml Vial) 2 ml PRN 1X PRN ID PRIOR TO IV START; Start 03/20/19 at 07:00; Stop 03/21/19 at 06:59; Status DC Hydromorphone HCl (Dilaudid) 0.5 mg PRN Q10MIN PRN IV SEV PAIN, Second choice; Start 03/20/19 at 07:00; Stop 03/21/19 at 06:59; Status DC Prochlorperazine Edisylate (Compazine) 5 mg PACU PRN PRN IV NAUSEA, MRX1 Last administered on 03/20/19at 15:03; Start 03/20/19 at 07:00; Stop 03/21/19 at 06:59; Status DC Cefoxitin Sodium (Mefoxin) 2 gm PREOP PRN PRN IVP PREOP Last administered on 03/20/19at 11:02; Start 03/20/19 at 06:00; Stop 03/22/19 at 11:21; Status DC Propofol 20 ml @ As Directed STK-MED ONCE IV ; Start 03/20/19 at 09:21; Stop 03/20/19 at 09:22; Status DC Lidocaine HCl (Lidocaine Pf 2% Vial) 5 ml STK-MED ONCE .ROUTE ; Start 03/20/19 at 09:21; Stop 03/20/19 at 09:22; Status DC Ondansetron HCl (Zofran) 4 mg STK-MED ONCE .ROUTE ; Start 03/20/19 at 09:21; Stop 03/20/19 at 09:22; Status DC Dexamethasone Sodium Phosphate (Decadron) 4 mg STK-MED ONCE .ROUTE ; Start 03/20/19 at 09:21; Stop 03/20/19 at 09:22; Status DC Rocuronium Elmore (Zemuron) 50 mg STK-MED ONCE .ROUTE ; Start 03/20/19 at 09:21; Stop 03/20/19 at 09:22; Status DC Fentanyl Citrate (Fentanyl 2ml Vial) 100 mcg STK-MED ONCE .ROUTE ; Start 03/20/19 at 09:22; Stop 03/20/19 at 09:22; Status DC Midazolam HCl (Versed) 2 mg STK-MED ONCE .ROUTE ; Start 03/20/19 at 09:22; Stop 03/20/19 at 09:22; Status DC Sevoflurane (Ultane) 60 ml STK-MED ONCE IH ; Start 03/20/19 at 09:43; Stop 03/20/19 at 09:43; Status DC Bupivacaine HCl/ Epinephrine Bitart (Sensorcain-Epi 0.5%-1:400294 Mpf) 30 ml STK-MED ONCE .ROUTE Last administered on 03/20/19at 11:38; Start 03/20/19 at 10:14; Stop 03/20/19 at 10:15; Status DC Dexamethasone Sodium Phosphate (Decadron) 4 mg STK-MED ONCE .ROUTE ; Start 03/20/19 at 11:18; Stop 03/20/19 at 11:19; Status DC Fentanyl Citrate (Fentanyl 2ml Vial) 100 mcg STK-MED ONCE .ROUTE ; Start 03/20/19 at 11:38; Stop 03/20/19 at 11:39; Status DC Cellulose (Surgicel Hemostat 4x8) 1 each STK-MED ONCE .ROUTE Last administered on 03/20/19at 12:24; Start 03/20/19 at 12:24; Stop 03/20/19 at 12:24; Status DC Phenylephrine HCl (PHENYLEPHRINE in 0.9% NACL PF) 1 mg STK-MED ONCE IV ; Start 03/20/19 at 12:25; Stop 03/20/19 at 12:25; Status DC Ephedrine Sulfate (ePHEDrine PF IN SALINE SYRINGE) 50 mg STK-MED ONCE IV ; Start 03/20/19 at 12:25; Stop 03/20/19 at 12:25; Status DC Neostigmine Elmore (Neostigmine Methylsulfate) 5 mg STK-MED ONCE .ROUTE ; Start 03/20/19 at 12:25; Stop 03/20/19 at 12:25; Status DC Glycopyrrolate (Robinul) 1 mg STK-MED ONCE .ROUTE ; Start 03/20/19 at 12:25; Stop 03/20/19 at 12:26; Status DC Rocuronium Elmore (Zemuron) 50 mg STK-MED ONCE .ROUTE ; Start 03/20/19 at 12:33; Stop 03/20/19 at 12:33; Status DC Cefoxitin Sodium (Mefoxin) 2 gm 1X ONCE IVP Last administered on 03/20/19at 13:02; Start 03/20/19 at 12:45; Stop 03/20/19 at 12:46; Status DC Albumin Human 500 ml @ As Directed STK-MED ONCE IV ; Start 03/20/19 at 13:05; Stop 03/20/19 at 13:05; Status DC Propofol 20 ml @ As Directed STK-MED ONCE IV ; Start 03/20/19 at 14:06; Stop 03/20/19 at 14:06; Status DC Desflurane (Suprane) 90 ml STK-MED ONCE IH ; Start 03/20/19 at 14:11; Stop 03/20/19 at 14:11; Status DC Famotidine (Pepcid Vial) 20 mg BID IVP Last administered on 03/27/19 08:17; Start 03/20/19 at 21:00 Enoxaparin Sodium (Lovenox 40mg Syringe) 40 mg Q24H SQ Last administered on 03/27/19 08:18; Start 03/21/19 at 09:00 Sodium Chloride (Normal Saline Flush) 3 ml QSHIFT PRN IV AFTER MEDS AND BLOOD DRAWS; Start 03/20/19 at 14:30 Ringer's Solution 1,000 ml @ 100 mls/hr Q10H IV Last administered on 03/23/19at 16:56; Start 03/20/19 at 14:27; Stop 03/24/19 at 08:56; Status DC Naloxone HCl (Narcan) 0.4 mg PRN Q2MIN PRN IV SEE INSTRUCTIONS; Start 03/20/19 at 14:30 Sodium Chloride 1,000 ml @ 25 mls/hr Q24H IV Last administered on 03/25/19at 14:27; Start 03/20/19 at 14:27 Morphine Sulfate 30 ml @ 0 mls/hr CONT PRN PRN IV PER PROTOCOL Last administered on 03/25/19at 13:54; Start 03/20/19 at 14:30 Ondansetron HCl (Zofran) 4 mg PRN Q6HRS PRN IVP NAUESA, 1ST CHOICE Last administered on 03/26/19at 13:54; Start 03/20/19 at 14:30 Lorazepam (Ativan Inj) 2 mg PRN Q1HR PRN IV For CIWA 8-14 Last administered on 03/26/19 05:00; Start 03/20/19 at 20:00 Lorazepam (Ativan Inj) 4 mg PRN Q1HR PRN IV For CIWA 15 or greater Last administered on 03/26/19 09:16; Start 03/20/19 at 20:00 Metoprolol Tartrate (Lopressor Vial) 5 mg PRN Q6HRS PRN IVP HYPERTENSION Last administered on 03/23/19at 04:38; Start 03/20/19 at 23:30; Stop 03/24/19 at 08:56; Status DC Dexmedetomidine HCl 400 mcg/ Sodium Chloride 100 ml @ 0 mls/hr CONT PRN IV AGITATION Last administered on 03/23/19at 05:08; Start 03/21/19 at 23:15; Stop 03/24/19 at 03:59; Status DC Sodium Chloride 500 ml @ 500 mls/hr 1X PRN PRN IV ANXIETY / AGITATION; Start 03/21/19 at 23:15; Status Cancel Atropine Sulfate (ATROPINE 0.5mg SYRINGE) 0.5 mg PRN Q5MIN PRN IV SEE COMMENTS; Start 03/21/19 at 23:15 Haloperidol Lactate (Haldol Inj) 5 mg PRN Q4HRS PRN IVP Hallucinatns,Confusn,Delirium Last administered on 03/26/19at 15:38; Start 03/22/19 at 11:30 Diphenhydramine HCl (Benadryl) 25 mg PRN Q15MIN PRN IVP EPS symptoms 2'Haldol admin Last administered on 03/23/19at 03:58; Start 03/22/19 at 11:30 Multivitamins 10 ml/Thiamine HCl 100 mg/Folic Acid 1 mg/Sodium Chloride 1,011.2 ml @ 100 mls/ hr DAILY IV Last administered on 03/26/19at 09:15; Start 03/22/19 at 21:00; Stop 03/26/19 at 19:07; Status DC Thiamine HCl 100 mg/Dextrose 51 ml @ 100 mls/hr DAILY IV ; Start 03/22/19 at 21:00; Stop 03/26/19 at 09:31; Status UNV Ziprasidone (Geodon Im) 10 mg PRN Q6HRS PRN IM Agitation; Start 03/23/19 at 05:00 Metoprolol Tartrate (Lopressor Vial) 10 mg PRN Q6HRS PRN IVP HYPERTENSION; Start 03/24/19 at 09:00; Stop 03/24/19 at 12:56; Status DC Potassium Chloride/Dextrose/ Sod Cl 1,000 ml @ 85 mls/hr [id number] IV Last administered on 03/25/19at 09:07; Start 03/24/19 at 09:00; Stop 03/25/19 at 15:59; Status DC Labetalol HCl (Normodyne Iv Push) 10 mg PRN Q2HR PRN IVP HYPERTENSION Last administered on 03/27/19at 06:04; Start 03/24/19 at 13:00 Labetalol HCl (Normodyne Iv Push) 20 mg 1X ONCE IVP Last administered on 03/24/19at 13:00; Start 03/24/19 at 13:00; Stop 03/24/19 at 13:01; Status DC Amino Acids/ Electrolytes/ Dextrose 1,000 ml @ 80 mls/hr [id number] IV Last administered on 03/26/19at 18:37; Start 03/25/19 at 16:00 Potassium Chloride/Water 100 ml @ 100 mls/hr Q1H IV ; Start 03/25/19 at 18:45; Stop 03/25/19 at 20:44; Status UNV Potassium Chloride/Water 100 ml @ 100 mls/hr Q1H IV Last administered on 03/26/19at 00:30; Start 03/25/19 at 19:00; Stop 03/25/19 at 22:59; Status DC Thiamine HCl 100 mg/Dextrose 51 ml @ 100 mls/hr DAILY IV ; Start 03/27/19 at 09:00; Stop 03/31/19 at 09:31 Potassium Chloride/Water 100 ml @ 100 mls/hr Q1H IV ; Start 03/26/19 at 16:00; Stop 03/26/19 at 17:59; Status UNV Potassium Chloride/Water 100 ml @ 100 mls/hr Q1H IV Last administered on 03/26/19at 22:03; Start 03/26/19 at 16:00; Stop 03/26/19 at 19:59; Status DC Active Scripts Active Vitals/I & O Vital Sign - Last 24 Hours 03/26/19 03/26/19 03/26/19 03/26/19 10:18 15:30 20:00 20:05 Temp 98.6 99.1 98.7 98.6 99.1 98.7 Pulse 115 111 100 Resp 20 20 20 B/P (MAP) 152/108 (123) 155/109 (124) 169/104 (125) Pulse Ox 98 95 98 O2 Delivery Room Air Room Air Room Air Room Air O2 Flow Rate 2.0 03/26/19 03/27/19 03/27/19 03/27/19 23:45 04:15 06:04 07:00 Temp 98.4 98.1 99.8 98.4 98.1 99.8 Pulse 99 104 104 89 Resp 18 16 B/P (MAP) 169/104 (125) 169/108 (128) 169/108 160/100 (120) Pulse Ox 94 94 95 O2 Delivery Room Air Room Air Room Air O2 Flow Rate 2.0 Intake and Output 03/26/19 03/26/19 03/27/19 15:00 23:00 07:00 Intake Total 20 ml Output Total 365 ml 55 ml 700 ml Balance -365 ml -55 ml -680 ml DYAN SANDOVAL MD Mar 27, 2019 08:44
[2019-03-27] MEDS: THIAMINE INJ 100 MG in IV DEXTROSE 5% 50 ML IV SCH (08:57)
[2019-03-27 11:00] VITALS: BP 156/90
--- NOTE | 2019-03-27 11:56 | NUR ---
Patient without any complaints or concerns so far this shift. States some anxiety that comes and goes but is behaving appropriately otherwise. CIWA being done [id number] and scores below intervention level so far this shift. Will continue to monitor. Tele being monitored by Charge Nurse, Sofia CRUZ.
--- NOTE | 2019-03-27 12:10 | PDOC ---
PROGRESS NOTES Assessment Alcohol withdrawal Alcoholism Alcohol withdrawal seizures Postoperative day #6 from resection of gastrointestinal stromal tumor. HTN Bilateral temporomandibular joint dislocations, 10/08 post seizure Plan Alcohol withdrawal protocol No need for additional neurological studies such as gene or MRI. Subjective No complaints Objective Vital Signs Date Time Temp Pulse Resp B/P (MAP) Pulse Ox O2 Delivery O2 Flow Rate FiO2 03/27/19 11:00 98.9 95 16 156/90 (112) 95 Room Air 98.9 03/27/19 04:15 2.0 Intake and Output 03/27/19 07:00 Intake Total 20 ml Output Total 1120 ml Balance -1100 ml Intake Oral 20 ml Output Urine Total 1025 ml Drainage Total 95 ml PHYSICAL EXAM Alert. Oriented to time, place and person. PERRL. EOMI. CN: no focal findings. Muscle tone: normal. Muscle strength: 5/5 DTR: 1+ Plantar reflex: flexor Gait: not examined in bed. Sensory exam: no abnormal findings. No cerebellar signs elicited. Slight postural tremor Review of Relevant I have reviewed the following items lana (where applicable) has been applied. Labs Laboratory Tests Test 03/26/19 06:50 03/26/19 07:37 03/26/19 13:25 03/26/19 23:48 White Blood Count 8.8 x10^3/uL (4.0-11.0) Red Blood Count 4.45 x10^6/uL (4.30-5.70) Hemoglobin 8.1 g/dL (13.0-17.5) Hematocrit 28.3 % (39.0-53.0) Mean Corpuscular Volume 64 fL (79-100) Mean Corpuscular Hemoglobin 18 pg (25-35) Mean Corpuscular Hemoglobin Concent 29 g/dL (31-37) Red Cell Distribution Width 24.7 % (11.5-14.5) Platelet Count 181 x10^3/uL (140-400) Neutrophils (%) (Auto) 54 % (31-73) Lymphocytes (%) (Auto) 20 % (24-48) Monocytes (%) (Auto) 24 % (0-9) Eosinophils (%) (Auto) 1 % (0-3) Basophils (%) (Auto) 1 % (0-3) Neutrophils # (Auto) 4.8 x10^3/uL (1.8-7.7) Lymphocytes # (Auto) 1.7 x10^3/uL (1.0-4.8) Monocytes # (Auto) 2.1 x10^3/uL (0.0-1.1) Eosinophils # (Auto) 0.1 x10^3/uL (0.0-0.7) Basophils # (Auto) 0.1 x10^3/uL (0.0-0.2) Sodium Level 139 mmol/L (136-145) Potassium Level 3.3 mmol/L (3.5-5.1) Chloride Level 105 mmol/L (98-107) Carbon Dioxide Level 23 mmol/L (21-32) Anion Gap 11 (6-14) Blood Urea Nitrogen 6 mg/dL (8-26) Creatinine 0.7 mg/dL (0.7-1.3) Estimated GFR (Cockcroft-Gault) 117.1 BUN/Creatinine Ratio 9 (6-20) Glucose Level 101 mg/dL (70-99) Calcium Level 8.6 mg/dL (8.5-10.1) Total Bilirubin 0.8 mg/dL (0.2-1.0) Aspartate Amino Transf (AST/SGOT) 31 U/L (15-37) Alanine Aminotransferase (ALT/SGPT) 31 U/L (16-63) Alkaline Phosphatase 51 U/L (46-116) Total Protein 6.2 g/dL (6.4-8.2) Albumin 3.0 g/dL (3.4-5.0) Albumin/Globulin Ratio 0.9 (1.0-1.7) Vitamin B12 Level 500 pg/mL (247-911) Thyroid Stimulating Hormone (TSH) 2.189 uIU/mL (0.358-3.74) Glucose (Fingerstick) 103 mg/dL (70-99) 100 mg/dL (70-99) Ammonia < 10 mcmol/L (11-34) Test 03/27/19 06:15 White Blood Count 7.4 x10^3/uL (4.0-11.0) Red Blood Count 4.51 x10^6/uL (4.30-5.70) Hemoglobin 8.2 g/dL (13.0-17.5) Hematocrit 28.8 % (39.0-53.0) Mean Corpuscular Volume 64 fL (79-100) Mean Corpuscular Hemoglobin 18 pg (25-35) Mean Corpuscular Hemoglobin Concent 29 g/dL (31-37) Red Cell Distribution Width 24.5 % (11.5-14.5) Platelet Count 246 x10^3/uL (140-400) Neutrophils (%) (Auto) 56 % (31-73) Lymphocytes (%) (Auto) 19 % (24-48) Monocytes (%) (Auto) 22 % (0-9) Eosinophils (%) (Auto) 2 % (0-3) Basophils (%) (Auto) 1 % (0-3) Neutrophils # (Auto) 4.1 x10^3/uL (1.8-7.7) Lymphocytes # (Auto) 1.4 x10^3/uL (1.0-4.8) Monocytes # (Auto) 1.6 x10^3/uL (0.0-1.1) Eosinophils # (Auto) 0.1 x10^3/uL (0.0-0.7) Basophils # (Auto) 0.1 x10^3/uL (0.0-0.2) Sodium Level 140 mmol/L (136-145) Potassium Level 3.4 mmol/L (3.5-5.1) Chloride Level 105 mmol/L (98-107) Carbon Dioxide Level 21 mmol/L (21-32) Anion Gap 14 (6-14) Blood Urea Nitrogen 7 mg/dL (8-26) Creatinine 0.8 mg/dL (0.7-1.3) Estimated GFR (Cockcroft-Gault) 100.4 BUN/Creatinine Ratio 9 (6-20) Glucose Level 94 mg/dL (70-99) Calcium Level 8.6 mg/dL (8.5-10.1) Total Bilirubin 0.9 mg/dL (0.2-1.0) Aspartate Amino Transf (AST/SGOT) 28 U/L (15-37) Alanine Aminotransferase (ALT/SGPT) 28 U/L (16-63) Alkaline Phosphatase 58 U/L (46-116) Total Protein 6.4 g/dL (6.4-8.2) Albumin 3.0 g/dL (3.4-5.0) Albumin/Globulin Ratio 0.9 (1.0-1.7) Laboratory Tests Test 03/26/19 13:25 03/26/19 23:48 03/27/19 06:15 Ammonia < 10 mcmol/L (11-34) Glucose (Fingerstick) 100 mg/dL (70-99) White Blood Count 7.4 x10^3/uL (4.0-11.0) Red Blood Count 4.51 x10^6/uL (4.30-5.70) Hemoglobin 8.2 g/dL (13.0-17.5) Hematocrit 28.8 % (39.0-53.0) Mean Corpuscular Volume 64 fL (79-100) Mean Corpuscular Hemoglobin 18 pg (25-35) Mean Corpuscular Hemoglobin Concent 29 g/dL (31-37) Red Cell Distribution Width 24.5 % (11.5-14.5) Platelet Count 246 x10^3/uL (140-400) Neutrophils (%) (Auto) 56 % (31-73) Lymphocytes (%) (Auto) 19 % (24-48) Monocytes (%) (Auto) 22 % (0-9) Eosinophils (%) (Auto) 2 % (0-3) Basophils (%) (Auto) 1 % (0-3) Neutrophils # (Auto) 4.1 x10^3/uL (1.8-7.7) Lymphocytes # (Auto) 1.4 x10^3/uL (1.0-4.8) Monocytes # (Auto) 1.6 x10^3/uL (0.0-1.1) Eosinophils # (Auto) 0.1 x10^3/uL (0.0-0.7) Basophils # (Auto) 0.1 x10^3/uL (0.0-0.2) Sodium Level 140 mmol/L (136-145) Potassium Level 3.4 mmol/L (3.5-5.1) Chloride Level 105 mmol/L (98-107) Carbon Dioxide Level 21 mmol/L (21-32) Anion Gap 14 (6-14) Blood Urea Nitrogen 7 mg/dL (8-26) Creatinine 0.8 mg/dL (0.7-1.3) Estimated GFR (Cockcroft-Gault) 100.4 BUN/Creatinine Ratio 9 (6-20) Glucose Level 94 mg/dL (70-99) Calcium Level 8.6 mg/dL (8.5-10.1) Total Bilirubin 0.9 mg/dL (0.2-1.0) Aspartate Amino Transf (AST/SGOT) 28 U/L (15-37) Alanine Aminotransferase (ALT/SGPT) 28 U/L (16-63) Alkaline Phosphatase 58 U/L (46-116) Total Protein 6.4 g/dL (6.4-8.2) Albumin 3.0 g/dL (3.4-5.0) Albumin/Globulin Ratio 0.9 (1.0-1.7) Medications Current Medications Ondansetron HCl (Zofran) 4 mg PRN Q6HRS PRN IV NAUSEA/VOMITING; Start 03/20/19 at 07:00; Stop 03/21/19 at 06:59; Status DC Fentanyl Citrate (Fentanyl 2ml Vial) 25 mcg PRN Q5MIN PRN IV MILD PAIN 1-3; Start 03/20/19 at 07:00; Stop 03/21/19 at 06:59; Status DC Fentanyl Citrate (Fentanyl 2ml Vial) 50 mcg PRN Q5MIN PRN IV MODERATE TO SEVERE PAIN Last administered on 03/20/19at 16:48; Start 03/20/19 at 07:00; Stop 03/21/19 at 06:59; Status DC Morphine Sulfate (Morphine Sulfate) 1 mg PRN Q10MIN PRN IV SEVERE PAIN 7-10 Last administered on 03/20/19at 15:04; Start 03/20/19 at 07:00; Stop 03/21/19 at 06:59; Status DC Ringer's Solution 1,000 ml @ 30 mls/hr Q24H IV Last administered on 03/20/19at 10:15; Start 03/20/19 at 07:00; Stop 03/20/19 at 18:59; Status DC Lidocaine HCl (Xylocaine-Mpf 1% 2ml Vial) 2 ml PRN 1X PRN ID PRIOR TO IV START; Start 03/20/19 at 07:00; Stop 03/21/19 at 06:59; Status DC Hydromorphone HCl (Dilaudid) 0.5 mg PRN Q10MIN PRN IV SEV PAIN, Second choice; Start 03/20/19 at 07:00; Stop 03/21/19 at 06:59; Status DC Prochlorperazine Edisylate (Compazine) 5 mg PACU PRN PRN IV NAUSEA, MRX1 Last administered on 03/20/19at 15:03; Start 03/20/19 at 07:00; Stop 03/21/19 at 06:59; Status DC Cefoxitin Sodium (Mefoxin) 2 gm PREOP PRN PRN IVP PREOP Last administered on 03/20/19at 11:02; Start 03/20/19 at 06:00; Stop 03/22/19 at 11:21; Status DC Propofol 20 ml @ As Directed STK-MED ONCE IV ; Start 03/20/19 at 09:21; Stop 03/20/19 at 09:22; Status DC Lidocaine HCl (Lidocaine Pf 2% Vial) 5 ml STK-MED ONCE .ROUTE ; Start 03/20/19 at 09:21; Stop 03/20/19 at 09:22; Status DC Ondansetron HCl (Zofran) 4 mg STK-MED ONCE .ROUTE ; Start 03/20/19 at 09:21; Stop 03/20/19 at 09:22; Status DC Dexamethasone Sodium Phosphate (Decadron) 4 mg STK-MED ONCE .ROUTE ; Start 03/20/19 at 09:21; Stop 03/20/19 at 09:22; Status DC Rocuronium Rocklin (Zemuron) 50 mg STK-MED ONCE .ROUTE ; Start 03/20/19 at 09:21; Stop 03/20/19 at 09:22; Status DC Fentanyl Citrate (Fentanyl 2ml Vial) 100 mcg STK-MED ONCE .ROUTE ; Start 03/20/19 at 09:22; Stop 03/20/19 at 09:22; Status DC Midazolam HCl (Versed) 2 mg STK-MED ONCE .ROUTE ; Start 03/20/19 at 09:22; Stop 03/20/19 at 09:22; Status DC Sevoflurane (Ultane) 60 ml STK-MED ONCE IH ; Start 03/20/19 at 09:43; Stop 03/20/19 at 09:43; Status DC Bupivacaine HCl/ Epinephrine Bitart (Sensorcain-Epi 0.5%-1:780506 Mpf) 30 ml STK-MED ONCE .ROUTE Last administered on 03/20/19at 11:38; Start 03/20/19 at 10:14; Stop 03/20/19 at 10:15; Status DC Dexamethasone Sodium Phosphate (Decadron) 4 mg STK-MED ONCE .ROUTE ; Start 03/20/19 at 11:18; Stop 03/20/19 at 11:19; Status DC Fentanyl Citrate (Fentanyl 2ml Vial) 100 mcg STK-MED ONCE .ROUTE ; Start 03/20/19 at 11:38; Stop 03/20/19 at 11:39; Status DC Cellulose (Surgicel Hemostat 4x8) 1 each STK-MED ONCE .ROUTE Last administered on 03/20/19at 12:24; Start 03/20/19 at 12:24; Stop 03/20/19 at 12:24; Status DC Phenylephrine HCl (PHENYLEPHRINE in 0.9% NACL PF) 1 mg STK-MED ONCE IV ; Start 03/20/19 at 12:25; Stop 03/20/19 at 12:25; Status DC Ephedrine Sulfate (ePHEDrine PF IN SALINE SYRINGE) 50 mg STK-MED ONCE IV ; Start 03/20/19 at 12:25; Stop 03/20/19 at 12:25; Status DC Neostigmine Rocklin (Neostigmine Methylsulfate) 5 mg STK-MED ONCE .ROUTE ; Start 03/20/19 at 12:25; Stop 03/20/19 at 12:25; Status DC Glycopyrrolate (Robinul) 1 mg STK-MED ONCE .ROUTE ; Start 03/20/19 at 12:25; Stop 03/20/19 at 12:26; Status DC Rocuronium Rocklin (Zemuron) 50 mg STK-MED ONCE .ROUTE ; Start 03/20/19 at 12:33; Stop 03/20/19 at 12:33; Status DC Cefoxitin Sodium (Mefoxin) 2 gm 1X ONCE IVP Last administered on 03/20/19at 13:02; Start 03/20/19 at 12:45; Stop 03/20/19 at 12:46; Status DC Albumin Human 500 ml @ As Directed STK-MED ONCE IV ; Start 03/20/19 at 13:05; Stop 03/20/19 at 13:05; Status DC Propofol 20 ml @ As Directed STK-MED ONCE IV ; Start 03/20/19 at 14:06; Stop 03/20/19 at 14:06; Status DC Desflurane (Suprane) 90 ml STK-MED ONCE IH ; Start 03/20/19 at 14:11; Stop 03/20/19 at 14:11; Status DC Famotidine (Pepcid Vial) 20 mg BID IVP Last administered on 03/27/19at 08:17; Start 03/20/19 at 21:00 Enoxaparin Sodium (Lovenox 40mg Syringe) 40 mg Q24H SQ Last administered on 03/27/19at 08:18; Start 03/21/19 at 09:00 Sodium Chloride (Normal Saline Flush) 3 ml QSHIFT PRN IV AFTER MEDS AND BLOOD DRAWS; Start 03/20/19 at 14:30 Ringer's Solution 1,000 ml @ 100 mls/hr Q10H IV Last administered on 03/23/19at 16:56; Start 03/20/19 at 14:27; Stop 03/24/19 at 08:56; Status DC Naloxone HCl (Narcan) 0.4 mg PRN Q2MIN PRN IV SEE INSTRUCTIONS; Start 03/20/19 at 14:30 Sodium Chloride 1,000 ml @ 25 mls/hr Q24H IV Last administered on 03/25/19at 14:27; Start 03/20/19 at 14:27 Morphine Sulfate 30 ml @ 0 mls/hr CONT PRN PRN IV PER PROTOCOL Last administered on 03/25/19at 13:54; Start 03/20/19 at 14:30 Ondansetron HCl (Zofran) 4 mg PRN Q6HRS PRN IVP NAUESA, 1ST CHOICE Last administered on 03/26/19at 13:54; Start 03/20/19 at 14:30 Lorazepam (Ativan Inj) 2 mg PRN Q1HR PRN IV For CIWA 8-14 Last administered on 03/26/19at 05:00; Start 03/20/19 at 20:00 Lorazepam (Ativan Inj) 4 mg PRN Q1HR PRN IV For CIWA 15 or greater Last administered on 03/26/19at 09:16; Start 03/20/19 at 20:00 Metoprolol Tartrate (Lopressor Vial) 5 mg PRN Q6HRS PRN IVP HYPERTENSION Last administered on 03/23/19at 04:38; Start 03/20/19 at 23:30; Stop 03/24/19 at 08:56; Status DC Dexmedetomidine HCl 400 mcg/ Sodium Chloride 100 ml @ 0 mls/hr CONT PRN IV AGITATION Last administered on 03/23/19at 05:08; Start 03/21/19 at 23:15; Stop 03/24/19 at 03:59; Status DC Sodium Chloride 500 ml @ 500 mls/hr 1X PRN PRN IV ANXIETY / AGITATION; Start 03/21/19 at 23:15; Status Cancel Atropine Sulfate (ATROPINE 0.5mg SYRINGE) 0.5 mg PRN Q5MIN PRN IV SEE COMMENTS; Start 03/21/19 at 23:15 Haloperidol Lactate (Haldol Inj) 5 mg PRN Q4HRS PRN IVP Hallucinatns,Confusn,Delirium Last administered on 03/26/19at 15:38; Start 03/22/19 at 11:30 Diphenhydramine HCl (Benadryl) 25 mg PRN Q15MIN PRN IVP EPS symptoms 2'Haldol admin Last administered on 03/23/19at 03:58; Start 03/22/19 at 11:30 Multivitamins 10 ml/Thiamine HCl 100 mg/Folic Acid 1 mg/Sodium Chloride 1,011.2 ml @ 100 mls/ hr DAILY IV Last administered on 03/26/19at 09:15; Start 03/22/19 at 21:00; Stop 03/26/19 at 19:07; Status DC Thiamine HCl 100 mg/Dextrose 51 ml @ 100 mls/hr DAILY IV ; Start 03/22/19 at 21:00; Stop 03/26/19 at 09:31; Status UNV Ziprasidone (Geodon Im) 10 mg PRN Q6HRS PRN IM Agitation; Start 03/23/19 at 05:00 Metoprolol Tartrate (Lopressor Vial) 10 mg PRN Q6HRS PRN IVP HYPERTENSION; Start 03/24/19 at 09:00; Stop 03/24/19 at 12:56; Status DC Potassium Chloride/Dextrose/ Sod Cl 1,000 ml @ 85 mls/hr [id number] IV Last administered on 03/25/19at 09:07; Start 03/24/19 at 09:00; Stop 03/25/19 at 15:59; Status DC Labetalol HCl (Normodyne Iv Push) 10 mg PRN Q2HR PRN IVP HYPERTENSION Last administered on 03/27/19at 06:04; Start 03/24/19 at 13:00 Labetalol HCl (Normodyne Iv Push) 20 mg 1X ONCE IVP Last administered on 03/24/19at 13:00; Start 03/24/19 at 13:00; Stop 03/24/19 at 13:01; Status DC Amino Acids/ Electrolytes/ Dextrose 1,000 ml @ 80 mls/hr [id number] IV Last administered on 03/26/19at 18:37; Start 03/25/19 at 16:00 Potassium Chloride/Water 100 ml @ 100 mls/hr Q1H IV ; Start 03/25/19 at 18:45; Stop 03/25/19 at 20:44; Status UNV Potassium Chloride/Water 100 ml @ 100 mls/hr Q1H IV Last administered on 03/26/19at 00:30; Start 03/25/19 at 19:00; Stop 03/25/19 at 22:59; Status DC Thiamine HCl 100 mg/Dextrose 51 ml @ 100 mls/hr DAILY IV Last administered on 03/27/19at 08:57; Start 03/27/19 at 09:00; Stop 03/31/19 at 09:31 Potassium Chloride/Water 100 ml @ 100 mls/hr Q1H IV ; Start 03/26/19 at 16:00; Stop 03/26/19 at 17:59; Status UNV Potassium Chloride/Water 100 ml @ 100 mls/hr Q1H IV Last administered on 03/26/19at 22:03; Start 03/26/19 at 16:00; Stop 03/26/19 at 19:59; Status DC Potassium Chloride (Klor-Con) 40 meq 1X ONCE PO ; Start 03/27/19 at 12:15; Stop 03/27/19 at 12:16; Status UNV Active Scripts Active Vitals/I & O Vital Sign - Last 24 Hours 03/26/19 03/26/19 03/26/19 03/26/19 15:30 20:00 20:05 23:45 Temp 99.1 98.7 98.4 99.1 98.7 98.4 Pulse 111 100 99 Resp 20 20 18 B/P (MAP) 155/109 (124) 169/104 (125) 169/104 (125) Pulse Ox 95 98 94 O2 Delivery Room Air Room Air Room Air Room Air O2 Flow Rate 2.0 03/27/19 03/27/19 03/27/19 03/27/19 04:15 06:04 07:00 08:00 Temp 98.1 99.8 98.1 99.8 Pulse 104 104 89 Resp 16 B/P (MAP) 169/108 (128) 169/108 160/100 (120) Pulse Ox 94 95 O2 Delivery Room Air Room Air Room Air O2 Flow Rate 2.0 03/27/19 11:00 Temp 98.9 98.9 Pulse 95 Resp 16 B/P (MAP) 156/90 (112) Pulse Ox 95 O2 Delivery Room Air Intake and Output 03/26/19 03/26/19 03/27/19 15:00 23:00 07:00 Intake Total 20 ml Output Total 365 ml 55 ml 700 ml Balance -365 ml -55 ml -[address] without contrast. HISTORY: Seizure. TECHNIQUE: Computed tomographic images of the head were obtained without contrast. *One or more of the following individualized dose reduction techniques were utilized for this examination: 1. Automated exposure control. 2. Adjustment of the mA and/or kV according to patient size. 3. Use of iterative reconstruction technique. COMPARISON: 10/01/2016. FINDINGS: There is no acute or subacute extra-axial or intraparenchymal hemorrhage. There is no mass effect or midline shift. There is no hydrocephalus. There are areas of decreased attenuation within the cerebral white matter, nonspecific and likely related to chronic small vessel disease. There is cerebral volume loss. The visualized portions of the orbits, paranasal sinuses and mastoid air cells are unremarkable. No suspicious calvarial lesion is seen. IMPRESSION: 1. No acute intracranial finding. 2. Bilateral cerebral white matter changes, likely due to chronic small vessel disease. 3. Cerebral volume loss. CARMEN TAYLOR MD Mar 27, 2019 12:10
[2019-03-27] MEDS ORDERED: POTASSIUM CHLORIDE 20 MEQ TABLET.ER. PO ONE (12:15)
--- NOTE | 2019-03-27 12:24 | PDOC ---
SURGICAL PROGRESS NOTE Subjective no complaints hoping for liquids Vital Signs Vital Signs Date Time Temp Pulse Resp B/P (MAP) Pulse Ox O2 Delivery O2 Flow Rate FiO2 03/27/19 11:00 98.9 95 16 156/90 (112) 95 Room Air 98.9 03/27/19 04:15 2.0 I&O Intake and Output 03/27/19 07:00 Intake Total 20 ml Output Total 1120 ml Balance -1100 ml Intake Oral 20 ml Output Urine Total 1025 ml Drainage Total 95 ml PATIENT HAS A MENDEZ: No General: Alert, Oriented X3, Cooperative Abdomen: Soft, Other (ND) Labs Laboratory Tests Test 03/26/19 06:50 03/26/19 07:37 03/26/19 13:25 03/26/19 23:48 White Blood Count 8.8 x10^3/uL (4.0-11.0) Red Blood Count 4.45 x10^6/uL (4.30-5.70) Hemoglobin 8.1 g/dL (13.0-17.5) Hematocrit 28.3 % (39.0-53.0) Mean Corpuscular Volume 64 fL (79-100) Mean Corpuscular Hemoglobin 18 pg (25-35) Mean Corpuscular Hemoglobin Concent 29 g/dL (31-37) Red Cell Distribution Width 24.7 % (11.5-14.5) Platelet Count 181 x10^3/uL (140-400) Neutrophils (%) (Auto) 54 % (31-73) Lymphocytes (%) (Auto) 20 % (24-48) Monocytes (%) (Auto) 24 % (0-9) Eosinophils (%) (Auto) 1 % (0-3) Basophils (%) (Auto) 1 % (0-3) Neutrophils # (Auto) 4.8 x10^3/uL (1.8-7.7) Lymphocytes # (Auto) 1.7 x10^3/uL (1.0-4.8) Monocytes # (Auto) 2.1 x10^3/uL (0.0-1.1) Eosinophils # (Auto) 0.1 x10^3/uL (0.0-0.7) Basophils # (Auto) 0.1 x10^3/uL (0.0-0.2) Sodium Level 139 mmol/L (136-145) Potassium Level 3.3 mmol/L (3.5-5.1) Chloride Level 105 mmol/L (98-107) Carbon Dioxide Level 23 mmol/L (21-32) Anion Gap 11 (6-14) Blood Urea Nitrogen 6 mg/dL (8-26) Creatinine 0.7 mg/dL (0.7-1.3) Estimated GFR (Cockcroft-Gault) 117.1 BUN/Creatinine Ratio 9 (6-20) Glucose Level 101 mg/dL (70-99) Calcium Level 8.6 mg/dL (8.5-10.1) Total Bilirubin 0.8 mg/dL (0.2-1.0) Aspartate Amino Transf (AST/SGOT) 31 U/L (15-37) Alanine Aminotransferase (ALT/SGPT) 31 U/L (16-63) Alkaline Phosphatase 51 U/L (46-116) Total Protein 6.2 g/dL (6.4-8.2) Albumin 3.0 g/dL (3.4-5.0) Albumin/Globulin Ratio 0.9 (1.0-1.7) Vitamin B12 Level 500 pg/mL (247-911) Thyroid Stimulating Hormone (TSH) 2.189 uIU/mL (0.358-3.74) Glucose (Fingerstick) 103 mg/dL (70-99) 100 mg/dL (70-99) Ammonia < 10 mcmol/L (11-34) Test 03/27/19 06:15 White Blood Count 7.4 x10^3/uL (4.0-11.0) Red Blood Count 4.51 x10^6/uL (4.30-5.70) Hemoglobin 8.2 g/dL (13.0-17.5) Hematocrit 28.8 % (39.0-53.0) Mean Corpuscular Volume 64 fL (79-100) Mean Corpuscular Hemoglobin 18 pg (25-35) Mean Corpuscular Hemoglobin Concent 29 g/dL (31-37) Red Cell Distribution Width 24.5 % (11.5-14.5) Platelet Count 246 x10^3/uL (140-400) Neutrophils (%) (Auto) 56 % (31-73) Lymphocytes (%) (Auto) 19 % (24-48) Monocytes (%) (Auto) 22 % (0-9) Eosinophils (%) (Auto) 2 % (0-3) Basophils (%) (Auto) 1 % (0-3) Neutrophils # (Auto) 4.1 x10^3/uL (1.8-7.7) Lymphocytes # (Auto) 1.4 x10^3/uL (1.0-4.8) Monocytes # (Auto) 1.6 x10^3/uL (0.0-1.1) Eosinophils # (Auto) 0.1 x10^3/uL (0.0-0.7) Basophils # (Auto) 0.1 x10^3/uL (0.0-0.2) Sodium Level 140 mmol/L (136-145) Potassium Level 3.4 mmol/L (3.5-5.1) Chloride Level 105 mmol/L (98-107) Carbon Dioxide Level 21 mmol/L (21-32) Anion Gap 14 (6-14) Blood Urea Nitrogen 7 mg/dL (8-26) Creatinine 0.8 mg/dL (0.7-1.3) Estimated GFR (Cockcroft-Gault) 100.4 BUN/Creatinine Ratio 9 (6-20) Glucose Level 94 mg/dL (70-99) Calcium Level 8.6 mg/dL (8.5-10.1) Total Bilirubin 0.9 mg/dL (0.2-1.0) Aspartate Amino Transf (AST/SGOT) 28 U/L (15-37) Alanine Aminotransferase (ALT/SGPT) 28 U/L (16-63) Alkaline Phosphatase 58 U/L (46-116) Total Protein 6.4 g/dL (6.4-8.2) Albumin 3.0 g/dL (3.4-5.0) Albumin/Globulin Ratio 0.9 (1.0-1.7) Laboratory Tests Test 03/26/19 13:25 03/26/19 23:48 03/27/19 06:15 Ammonia < 10 mcmol/L (11-34) Glucose (Fingerstick) 100 mg/dL (70-99) White Blood Count 7.4 x10^3/uL (4.0-11.0) Red Blood Count 4.51 x10^6/uL (4.30-5.70) Hemoglobin 8.2 g/dL (13.0-17.5) Hematocrit 28.8 % (39.0-53.0) Mean Corpuscular Volume 64 fL (79-100) Mean Corpuscular Hemoglobin 18 pg (25-35) Mean Corpuscular Hemoglobin Concent 29 g/dL (31-37) Red Cell Distribution Width 24.5 % (11.5-14.5) Platelet Count 246 x10^3/uL (140-400) Neutrophils (%) (Auto) 56 % (31-73) Lymphocytes (%) (Auto) 19 % (24-48) Monocytes (%) (Auto) 22 % (0-9) Eosinophils (%) (Auto) 2 % (0-3) Basophils (%) (Auto) 1 % (0-3) Neutrophils # (Auto) 4.1 x10^3/uL (1.8-7.7) Lymphocytes # (Auto) 1.4 x10^3/uL (1.0-4.8) Monocytes # (Auto) 1.6 x10^3/uL (0.0-1.1) Eosinophils # (Auto) 0.1 x10^3/uL (0.0-0.7) Basophils # (Auto) 0.1 x10^3/uL (0.0-0.2) Sodium Level 140 mmol/L (136-145) Potassium Level 3.4 mmol/L (3.5-5.1) Chloride Level 105 mmol/L (98-107) Carbon Dioxide Level 21 mmol/L (21-32) Anion Gap 14 (6-14) Blood Urea Nitrogen 7 mg/dL (8-26) Creatinine 0.8 mg/dL (0.7-1.3) Estimated GFR (Cockcroft-Gault) 100.4 BUN/Creatinine Ratio 9 (6-20) Glucose Level 94 mg/dL (70-99) Calcium Level 8.6 mg/dL (8.5-10.1) Total Bilirubin 0.9 mg/dL (0.2-1.0) Aspartate Amino Transf (AST/SGOT) 28 U/L (15-37) Alanine Aminotransferase (ALT/SGPT) 28 U/L (16-63) Alkaline Phosphatase 58 U/L (46-116) Total Protein 6.4 g/dL (6.4-8.2) Albumin 3.0 g/dL (3.4-5.0) Albumin/Globulin Ratio 0.9 (1.0-1.7) Assessment/Plan will have dr Celso RUGGIERO continue ANGELLA ATWOOD APRN Mar 27, 2019 12:24
[2019-03-27] MEDS: IV NORMAL SALINE 1000ML BAG 1,000 ML IV SCH (14:27)
[2019-03-27 15:00] VITALS: BP 130/94
--- NOTE | 2019-03-27 15:34 | NUR ---
SS following up with discharge planning. SS reviewed pt chart. SS discussed with PTBeena. PT recommending home at this time. SS will continue to follow for discharge planning.
--- NOTE | 2019-03-27 16:44 | PDOC ---
PULMONARY PROGRESS NOTES Subjective Denies SOA, or increased cough reports overnight seizure Vitals Vital Signs Date Time Temp Pulse Resp B/P (MAP) Pulse Ox O2 Delivery O2 Flow Rate FiO2 03/27/19 15:00 99.0 101 16 130/94 (106) 97 Room Air 99.0 03/27/19 04:15 2.0 ROS: No Nausea, No Chest Pain, No Abdominal Pain, No Increase Cough General: Alert, Oriented X4 Lungs: Clear Cardiovascular: S1, S2 Abdomen: Soft Neuro Exam: Alert Extremities: No Edema Skin: Warm, Dry Labs Laboratory Tests Test 03/26/19 06:50 03/26/19 07:37 03/26/19 13:25 03/26/19 23:48 White Blood Count 8.8 x10^3/uL (4.0-11.0) Red Blood Count 4.45 x10^6/uL (4.30-5.70) Hemoglobin 8.1 g/dL (13.0-17.5) Hematocrit 28.3 % (39.0-53.0) Mean Corpuscular Volume 64 fL (79-100) Mean Corpuscular Hemoglobin 18 pg (25-35) Mean Corpuscular Hemoglobin Concent 29 g/dL (31-37) Red Cell Distribution Width 24.7 % (11.5-14.5) Platelet Count 181 x10^3/uL (140-400) Neutrophils (%) (Auto) 54 % (31-73) Lymphocytes (%) (Auto) 20 % (24-48) Monocytes (%) (Auto) 24 % (0-9) Eosinophils (%) (Auto) 1 % (0-3) Basophils (%) (Auto) 1 % (0-3) Neutrophils # (Auto) 4.8 x10^3/uL (1.8-7.7) Lymphocytes # (Auto) 1.7 x10^3/uL (1.0-4.8) Monocytes # (Auto) 2.1 x10^3/uL (0.0-1.1) Eosinophils # (Auto) 0.1 x10^3/uL (0.0-0.7) Basophils # (Auto) 0.1 x10^3/uL (0.0-0.2) Sodium Level 139 mmol/L (136-145) Potassium Level 3.3 mmol/L (3.5-5.1) Chloride Level 105 mmol/L (98-107) Carbon Dioxide Level 23 mmol/L (21-32) Anion Gap 11 (6-14) Blood Urea Nitrogen 6 mg/dL (8-26) Creatinine 0.7 mg/dL (0.7-1.3) Estimated GFR (Cockcroft-Gault) 117.1 BUN/Creatinine Ratio 9 (6-20) Glucose Level 101 mg/dL (70-99) Calcium Level 8.6 mg/dL (8.5-10.1) Total Bilirubin 0.8 mg/dL (0.2-1.0) Aspartate Amino Transf (AST/SGOT) 31 U/L (15-37) Alanine Aminotransferase (ALT/SGPT) 31 U/L (16-63) Alkaline Phosphatase 51 U/L (46-116) Total Protein 6.2 g/dL (6.4-8.2) Albumin 3.0 g/dL (3.4-5.0) Albumin/Globulin Ratio 0.9 (1.0-1.7) Vitamin B12 Level 500 pg/mL (247-911) Thyroid Stimulating Hormone (TSH) 2.189 uIU/mL (0.358-3.74) Glucose (Fingerstick) 103 mg/dL (70-99) 100 mg/dL (70-99) Ammonia < 10 mcmol/L (11-34) Test 03/27/19 06:15 White Blood Count 7.4 x10^3/uL (4.0-11.0) Red Blood Count 4.51 x10^6/uL (4.30-5.70) Hemoglobin 8.2 g/dL (13.0-17.5) Hematocrit 28.8 % (39.0-53.0) Mean Corpuscular Volume 64 fL (79-100) Mean Corpuscular Hemoglobin 18 pg (25-35) Mean Corpuscular Hemoglobin Concent 29 g/dL (31-37) Red Cell Distribution Width 24.5 % (11.5-14.5) Platelet Count 246 x10^3/uL (140-400) Neutrophils (%) (Auto) 56 % (31-73) Lymphocytes (%) (Auto) 19 % (24-48) Monocytes (%) (Auto) 22 % (0-9) Eosinophils (%) (Auto) 2 % (0-3) Basophils (%) (Auto) 1 % (0-3) Neutrophils # (Auto) 4.1 x10^3/uL (1.8-7.7) Lymphocytes # (Auto) 1.4 x10^3/uL (1.0-4.8) Monocytes # (Auto) 1.6 x10^3/uL (0.0-1.1) Eosinophils # (Auto) 0.1 x10^3/uL (0.0-0.7) Basophils # (Auto) 0.1 x10^3/uL (0.0-0.2) Sodium Level 140 mmol/L (136-145) Potassium Level 3.4 mmol/L (3.5-5.1) Chloride Level 105 mmol/L (98-107) Carbon Dioxide Level 21 mmol/L (21-32) Anion Gap 14 (6-14) Blood Urea Nitrogen 7 mg/dL (8-26) Creatinine 0.8 mg/dL (0.7-1.3) Estimated GFR (Cockcroft-Gault) 100.4 BUN/Creatinine Ratio 9 (6-20) Glucose Level 94 mg/dL (70-99) Calcium Level 8.6 mg/dL (8.5-10.1) Magnesium Level 1.9 mg/dL (1.8-2.4) Total Bilirubin 0.9 mg/dL (0.2-1.0) Aspartate Amino Transf (AST/SGOT) 28 U/L (15-37) Alanine Aminotransferase (ALT/SGPT) 28 U/L (16-63) Alkaline Phosphatase 58 U/L (46-116) Total Protein 6.4 g/dL (6.4-8.2) Albumin 3.0 g/dL (3.4-5.0) Albumin/Globulin Ratio 0.9 (1.0-1.7) Laboratory Tests Test 03/26/19 23:48 03/27/19 06:15 Glucose (Fingerstick) 100 mg/dL (70-99) White Blood Count 7.4 x10^3/uL (4.0-11.0) Red Blood Count 4.51 x10^6/uL (4.30-5.70) Hemoglobin 8.2 g/dL (13.0-17.5) Hematocrit 28.8 % (39.0-53.0) Mean Corpuscular Volume 64 fL (79-100) Mean Corpuscular Hemoglobin 18 pg (25-35) Mean Corpuscular Hemoglobin Concent 29 g/dL (31-37) Red Cell Distribution Width 24.5 % (11.5-14.5) Platelet Count 246 x10^3/uL (140-400) Neutrophils (%) (Auto) 56 % (31-73) Lymphocytes (%) (Auto) 19 % (24-48) Monocytes (%) (Auto) 22 % (0-9) Eosinophils (%) (Auto) 2 % (0-3) Basophils (%) (Auto) 1 % (0-3) Neutrophils # (Auto) 4.1 x10^3/uL (1.8-7.7) Lymphocytes # (Auto) 1.4 x10^3/uL (1.0-4.8) Monocytes # (Auto) 1.6 x10^3/uL (0.0-1.1) Eosinophils # (Auto) 0.1 x10^3/uL (0.0-0.7) Basophils # (Auto) 0.1 x10^3/uL (0.0-0.2) Sodium Level 140 mmol/L (136-145) Potassium Level 3.4 mmol/L (3.5-5.1) Chloride Level 105 mmol/L (98-107) Carbon Dioxide Level 21 mmol/L (21-32) Anion Gap 14 (6-14) Blood Urea Nitrogen 7 mg/dL (8-26) Creatinine 0.8 mg/dL (0.7-1.3) Estimated GFR (Cockcroft-Gault) 100.4 BUN/Creatinine Ratio 9 (6-20) Glucose Level 94 mg/dL (70-99) Calcium Level 8.6 mg/dL (8.5-10.1) Magnesium Level 1.9 mg/dL (1.8-2.4) Total Bilirubin 0.9 mg/dL (0.2-1.0) Aspartate Amino Transf (AST/SGOT) 28 U/L (15-37) Alanine Aminotransferase (ALT/SGPT) 28 U/L (16-63) Alkaline Phosphatase 58 U/L (46-116) Total Protein 6.4 g/dL (6.4-8.2) Albumin 3.0 g/dL (3.4-5.0) Albumin/Globulin Ratio 0.9 (1.0-1.7) Medications Active Scripts Medications Dose Route/Sig Max Daily Dose Days Date Category Impression . IMPRESSION: 1. Expected hypoxemia after surgical intervention related to possible atelectasis. 2. Acute respiratory failure secondary to above. 3. Status post laparoscopic partial gastrectomy and liver biopsy. 4. Alcoholism. 5. History of seizure disorder. 6. DT 7. MET ENCE POA 8.Seizures Plan . WILL S/O CALL IF NEEDED THANKS CONTINUE IS ROSS PATRICK MD Mar 27, 2019 16:44
[2019-03-27 19:44] VITALS: BP 146/101
[2019-03-27 23:26] VITALS: BP 133/96
[2019-03-28 03:55] VITALS: BP 107/76
[2019-03-28 05:11] LABS: BASO # 0.1 x10^3/uL (0.0-0.2); BASO % 1 % (0-3); EOS # 0.2 x10^3/uL (0.0-0.7); EOS % 3 % (0-3); HEMATOCRIT 30.5 % (39.0-53.0); HEMOGLOBIN 8.6 g/dL (13.0-17.5); LYMPH # 2.4 x10^3/uL (1.0-4.8); LYMPH % 28 % (24-48); MEAN CORPUSCULAR HEMOGLOBIN 18 pg (25-35); MEAN CORPUSCULAR HGB CONC 28 g/dL (31-37); MEAN CORPUSCULAR VOLUME 65 fL (79-100); MONO # 1.7 x10^3/uL (0.0-1.1); MONO % 20 % (0-9); NEUT # 4.3 x10^3/uL (1.8-7.7); NEUT % 49 % (31-73); PLATELET COUNT 322 x10^3/uL (140-400); RED BLOOD COUNT 4.72 x10^6/uL (4.30-5.70); RED CELL DISTRIBUTION WIDTH 25.5 % (11.5-14.5); WHITE BLOOD COUNT 8.8 x10^3/uL (4.0-11.0)
[2019-03-28 05:24] LABS: CALCIUM 8.5 mg/dL (8.5-10.1); CREATININE 0.9 mg/dL (0.7-1.3); GFR 87.6; POTASSIUM 3.8 mmol/L (3.5-5.1)
[2019-03-28 07:00] VITALS: BP 155/98
--- NOTE | 2019-03-28 07:42 | PDOC ---
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 c/w severe abuse seizure last night 03/25 NEUROLOGY CONSULTED, on withdrawal precautions, ct head pending 2/2 hx Bilateral temporomandibular joint dislocations, 10/08 post seizure Accel HTN - started on amlodipine Sinus tachy Alcoholism - levels 208 Microcytic anemia - Differential includes colon or gastric cancer, Henry's, peptic ulcer disease,irritable bowel disease, arteriovenous malformations and/or bone marrow suppression with alcohol 37 min pt exam, chart review, > 50% of time spent with exam, chart review, pt care coordination History of Present Illness History of Present Illness Mr Lozada is a 53 yo w/ PMHx ETOH abuse, HTN, anxiety, GERD, admitted on 03/20/2019 for elective resection of a gastrointestinal stromal tumor. He underwent the surgery without any complication by Dr. Houston. Following the surgery, he started to go through alcohol withdrawal. His last drink was a day prior to admission. He states he does drink vodka. He will go through a half gallon handle of vodka about every 3 days. He has experienced alcohol withdrawal symptoms previously. He recalls there have been 3 or 4 occasions when he has gone through alcohol withdrawal and suffered a seizure. He did suffer a seizure at [facility] on . He had been undergoing alcohol withdrawal protocol and was improving and the medicines were reduced and then he started to go through withdrawal again. He does not complain of any headache or pain. According to nurse, he had been agitated, confused and trying to climb out of bed. 2/3: Advanced diet. hypokalemia on replacement iv. He is much more alert today. bedside. He is asking for liquid diet today. Abdominal pain minimal. Tolerating diet advancement well. He has minimal pain, no further ETOH withdrawal sx. He is asking when he can go home. Plan: dw IS Vitals Vitals Vital Signs Date Time Temp Pulse Resp B/P (MAP) Pulse Ox O2 Delivery O2 Flow Rate FiO2 03/28/19 07:00 98.6 97 18 155/98 (117) 98 Room Air 98.6 Physical Exam General: Alert, Oriented X3, Cooperative Heart: Regular rate, No murmurs Lungs: Clear Abdomen: Soft, Other (ND) Extremities: No cyanosis, No edema Skin: No rashes, No significant lesion Labs LABS Laboratory Tests Test 03/28/19 04:15 White Blood Count 8.8 x10^3/uL (4.0-11.0) Red Blood Count 4.72 x10^6/uL (4.30-5.70) Hemoglobin 8.6 g/dL (13.0-17.5) Hematocrit 30.5 % (39.0-53.0) Mean Corpuscular Volume 65 fL (79-100) Mean Corpuscular Hemoglobin 18 pg (25-35) Mean Corpuscular Hemoglobin Concent 28 g/dL (31-37) Red Cell Distribution Width 25.5 % (11.5-14.5) Platelet Count 322 x10^3/uL (140-400) Neutrophils (%) (Auto) 49 % (31-73) Lymphocytes (%) (Auto) 28 % (24-48) Monocytes (%) (Auto) 20 % (0-9) Eosinophils (%) (Auto) 3 % (0-3) Basophils (%) (Auto) 1 % (0-3) Neutrophils # (Auto) 4.3 x10^3/uL (1.8-7.7) Lymphocytes # (Auto) 2.4 x10^3/uL (1.0-4.8) Monocytes # (Auto) 1.7 x10^3/uL (0.0-1.1) Eosinophils # (Auto) 0.2 x10^3/uL (0.0-0.7) Basophils # (Auto) 0.1 x10^3/uL (0.0-0.2) Sodium Level 140 mmol/L (136-145) Potassium Level 3.8 mmol/L (3.5-5.1) Chloride Level 106 mmol/L (98-107) Carbon Dioxide Level 21 mmol/L (21-32) Anion Gap 13 (6-14) Blood Urea Nitrogen 9 mg/dL (8-26) Creatinine 0.9 mg/dL (0.7-1.3) Estimated GFR (Cockcroft-Gault) 87.6 Glucose Level 95 mg/dL (70-99) Calcium Level 8.5 mg/dL (8.5-10.1) Comment Review of Relevant I have reviewed the following items lana (where applicable) has been applied. Labs Laboratory Tests Test 03/26/19 13:25 03/26/19 23:48 03/27/19 06:15 03/28/19 04:15 Ammonia < 10 mcmol/L (11-34) Glucose (Fingerstick) 100 mg/dL (70-99) White Blood Count 7.4 x10^3/uL (4.0-11.0) 8.8 x10^3/uL (4.0-11.0) Red Blood Count 4.51 x10^6/uL (4.30-5.70) 4.72 x10^6/uL (4.30-5.70) Hemoglobin 8.2 g/dL (13.0-17.5) 8.6 g/dL (13.0-17.5) Hematocrit 28.8 % (39.0-53.0) 30.5 % (39.0-53.0) Mean Corpuscular Volume 64 fL (79-100) 65 fL (79-100) Mean Corpuscular Hemoglobin 18 pg (25-35) 18 pg (25-35) Mean Corpuscular Hemoglobin Concent 29 g/dL (31-37) 28 g/dL (31-37) Red Cell Distribution Width 24.5 % (11.5-14.5) 25.5 % (11.5-14.5) Platelet Count 246 x10^3/uL (140-400) 322 x10^3/uL (140-400) Neutrophils (%) (Auto) 56 % (31-73) 49 % (31-73) Lymphocytes (%) (Auto) 19 % (24-48) 28 % (24-48) Monocytes (%) (Auto) 22 % (0-9) 20 % (0-9) Eosinophils (%) (Auto) 2 % (0-3) 3 % (0-3) Basophils (%) (Auto) 1 % (0-3) 1 % (0-3) Neutrophils # (Auto) 4.1 x10^3/uL (1.8-7.7) 4.3 x10^3/uL (1.8-7.7) Lymphocytes # (Auto) 1.4 x10^3/uL (1.0-4.8) 2.4 x10^3/uL (1.0-4.8) Monocytes # (Auto) 1.6 x10^3/uL (0.0-1.1) 1.7 x10^3/uL (0.0-1.1) Eosinophils # (Auto) 0.1 x10^3/uL (0.0-0.7) 0.2 x10^3/uL (0.0-0.7) Basophils # (Auto) 0.1 x10^3/uL (0.0-0.2) 0.1 x10^3/uL (0.0-0.2) Sodium Level 140 mmol/L (136-145) 140 mmol/L (136-145) Potassium Level 3.4 mmol/L (3.5-5.1) 3.8 mmol/L (3.5-5.1) Chloride Level 105 mmol/L (98-107) 106 mmol/L (98-107) Carbon Dioxide Level 21 mmol/L (21-32) 21 mmol/L (21-32) Anion Gap 14 (6-14) 13 (6-14) Blood Urea Nitrogen 7 mg/dL (8-26) 9 mg/dL (8-26) Creatinine 0.8 mg/dL (0.7-1.3) 0.9 mg/dL (0.7-1.3) Estimated GFR (Cockcroft-Gault) 100.4 87.6 BUN/Creatinine Ratio 9 (6-20) Glucose Level 94 mg/dL (70-99) 95 mg/dL (70-99) Calcium Level 8.6 mg/dL (8.5-10.1) 8.5 mg/dL (8.5-10.1) Magnesium Level 1.9 mg/dL (1.8-2.4) Total Bilirubin 0.9 mg/dL (0.2-1.0) Aspartate Amino Transf (AST/SGOT) 28 U/L (15-37) Alanine Aminotransferase (ALT/SGPT) 28 U/L (16-63) Alkaline Phosphatase 58 U/L (46-116) Total Protein 6.4 g/dL (6.4-8.2) Albumin 3.0 g/dL (3.4-5.0) Albumin/Globulin Ratio 0.9 (1.0-1.7) Laboratory Tests Test 03/28/19 04:15 White Blood Count 8.8 x10^3/uL (4.0-11.0) Red Blood Count 4.72 x10^6/uL (4.30-5.70) Hemoglobin 8.6 g/dL (13.0-17.5) Hematocrit 30.5 % (39.0-53.0) Mean Corpuscular Volume 65 fL (79-100) Mean Corpuscular Hemoglobin 18 pg (25-35) Mean Corpuscular Hemoglobin Concent 28 g/dL (31-37) Red Cell Distribution Width 25.5 % (11.5-14.5) Platelet Count 322 x10^3/uL (140-400) Neutrophils (%) (Auto) 49 % (31-73) Lymphocytes (%) (Auto) 28 % (24-48) Monocytes (%) (Auto) 20 % (0-9) Eosinophils (%) (Auto) 3 % (0-3) Basophils (%) (Auto) 1 % (0-3) Neutrophils # (Auto) 4.3 x10^3/uL (1.8-7.7) Lymphocytes # (Auto) 2.4 x10^3/uL (1.0-4.8) Monocytes # (Auto) 1.7 x10^3/uL (0.0-1.1) Eosinophils # (Auto) 0.2 x10^3/uL (0.0-0.7) Basophils # (Auto) 0.1 x10^3/uL (0.0-0.2) Sodium Level 140 mmol/L (136-145) Potassium Level 3.8 mmol/L (3.5-5.1) Chloride Level 106 mmol/L (98-107) Carbon Dioxide Level 21 mmol/L (21-32) Anion Gap 13 (6-14) Blood Urea Nitrogen 9 mg/dL (8-26) Creatinine 0.9 mg/dL (0.7-1.3) Estimated GFR (Cockcroft-Gault) 87.6 Glucose Level 95 mg/dL (70-99) Calcium Level 8.5 mg/dL (8.5-10.1) Medications Current Medications Ondansetron HCl (Zofran) 4 mg PRN Q6HRS PRN IV NAUSEA/VOMITING; Start 03/20/19 at 07:00; Stop 03/21/19 at 06:59; Status DC Fentanyl Citrate (Fentanyl 2ml Vial) 25 mcg PRN Q5MIN PRN IV MILD PAIN 1-3; Start 03/20/19 at 07:00; Stop 03/21/19 at 06:59; Status DC Fentanyl Citrate (Fentanyl 2ml Vial) 50 mcg PRN Q5MIN PRN IV MODERATE TO SEVERE PAIN Last administered on 03/20/19at 16:48; Start 03/20/19 at 07:00; Stop 03/21/19 at 06:59; Status DC Morphine Sulfate (Morphine Sulfate) 1 mg PRN Q10MIN PRN IV SEVERE PAIN 7-[address] administered on 03/20/19at 15:04; Start 03/20/19 at 07:00; Stop 03/21/19 at 06:59; Status DC Ringer's Solution 1,000 ml @ 30 mls/hr Q24H IV Last administered on 03/20/19at 10:15; Start 03/20/19 at 07:00; Stop 03/20/19 at 18:59; Status DC Lidocaine HCl (Xylocaine-Mpf 1% 2ml Vial) 2 ml PRN 1X PRN ID PRIOR TO IV START; Start 03/20/19 at 07:00; Stop 03/21/19 at 06:59; Status DC Hydromorphone HCl (Dilaudid) 0.5 mg PRN Q10MIN PRN IV SEV PAIN, Second choice; Start 03/20/19 at 07:00; Stop 03/21/19 at 06:59; Status DC Prochlorperazine Edisylate (Compazine) 5 mg PACU PRN PRN IV NAUSEA, MRX1 Last administered on 03/20/19at 15:03; Start 03/20/19 at 07:00; Stop 03/21/19 at 06:59; Status DC Cefoxitin Sodium (Mefoxin) 2 gm PREOP PRN PRN IVP PREOP Last administered on 03/20/19at 11:02; Start 03/20/19 at 06:00; Stop 03/22/19 at 11:21; Status DC Propofol 20 ml @ As Directed STK-MED ONCE IV ; Start 03/20/19 at 09:21; Stop 03/20/19 at 09:22; Status DC Lidocaine HCl (Lidocaine Pf 2% Vial) 5 ml STK-MED ONCE .ROUTE ; Start 03/20/19 at 09:21; Stop 03/20/19 at 09:22; Status DC Ondansetron HCl (Zofran) 4 mg STK-MED ONCE .ROUTE ; Start 03/20/19 at 09:21; Stop 03/20/19 at 09:22; Status DC Dexamethasone Sodium Phosphate (Decadron) 4 mg STK-MED ONCE .ROUTE ; Start 03/20/19 at 09:21; Stop 03/20/19 at 09:22; Status DC Rocuronium [place] (Zemuron) 50 mg STK-MED ONCE .ROUTE ; Start 03/20/19 at 09:21; Stop 03/20/19 at 09:22; Status DC Fentanyl Citrate (Fentanyl 2ml Vial) 100 mcg STK-MED ONCE .ROUTE ; Start 03/20/19 at 09:22; Stop 03/20/19 at 09:22; Status DC Midazolam HCl (Versed) 2 mg STK-MED ONCE .ROUTE ; Start 03/20/19 at 09:22; Stop 03/20/19 at 09:22; Status DC Sevoflurane (Ultane) 60 ml STK-MED ONCE IH ; Start 03/20/19 at 09:43; Stop 03/20/19 at 09:43; Status DC Bupivacaine HCl/ Epinephrine Bitart (Sensorcain-Epi 0.5%-1:[id number] Mpf) 30 ml STK-MED ONCE .ROUTE Last administered on 03/20/19at 11:38; Start 03/20/19 at 10:14; Stop 03/20/19 at 10:15; Status DC Dexamethasone Sodium Phosphate (Decadron) 4 mg STK-MED ONCE .ROUTE ; Start 03/20/19 at 11:18; Stop 03/20/19 at 11:19; Status DC Fentanyl Citrate (Fentanyl 2ml Vial) 100 mcg STK-MED ONCE .ROUTE ; Start 03/20/19 at 11:38; Stop 03/20/19 at 11:39; Status DC Cellulose (Surgicel Hemostat 4x8) 1 each STK-MED ONCE .ROUTE Last administered on 03/20/19at 12:24; Start 03/20/19 at 12:24; Stop 03/20/19 at 12:24; Status DC Phenylephrine HCl (PHENYLEPHRINE in 0.9% NACL PF) 1 mg STK-MED ONCE IV ; Start 03/20/19 at 12:25; Stop 03/20/19 at 12:25; Status DC Ephedrine Sulfate (ePHEDrine PF IN SALINE SYRINGE) 50 mg STK-MED ONCE IV ; Start 03/20/19 at 12:25; Stop 03/20/19 at 12:25; Status DC Neostigmine [place] (Neostigmine Methylsulfate) 5 mg STK-MED ONCE .ROUTE ; Start 03/20/19 at 12:25; Stop 03/20/19 at 12:25; Status DC Glycopyrrolate (Robinul) 1 mg STK-MED ONCE .ROUTE ; Start 03/20/19 at 12:25; Stop 03/20/19 at 12:26; Status DC Rocuronium [place] (Zemuron) 50 mg STK-MED ONCE .ROUTE ; Start 03/20/19 at 12:33; Stop 03/20/19 at 12:33; Status DC Cefoxitin Sodium (Mefoxin) 2 gm 1X ONCE IVP Last administered on 03/20/19at 13:02; Start 03/20/19 at 12:45; Stop 03/20/19 at 12:46; Status DC Albumin Human 500 ml @ As Directed STK-MED ONCE IV ; Start 03/20/19 at 13:05; Stop 03/20/19 at 13:05; Status DC Propofol 20 ml @ As Directed STK-MED ONCE IV ; Start 03/20/19 at 14:06; Stop 03/20/19 at 14:06; Status DC Desflurane (Suprane) 90 ml STK-MED ONCE IH ; Start 03/20/19 at 14:11; Stop 03/20/19 at 14:11; Status DC Famotidine (Pepcid Vial) 20 mg BID IVP Last administered on 03/27/19at 20:18; Start 03/20/19 at 21:00 Enoxaparin Sodium (Lovenox 40mg Syringe) 40 mg Q24H SQ Last administered on 03/27/19at 08:18; Start 03/21/19 at 09:00 Sodium Chloride (Normal Saline Flush) 3 ml QSHIFT PRN IV AFTER MEDS AND BLOOD DRAWS; Start 03/20/19 at 14:30 Ringer's Solution 1,000 ml @ 100 mls/hr Q10H IV Last administered on 03/23/19at 16:56; Start 03/20/19 at 14:27; Stop 03/24/19 at 08:56; Status DC Naloxone HCl (Narcan) 0.4 mg PRN Q2MIN PRN IV SEE INSTRUCTIONS; Start 03/20/19 at 14:30 Sodium Chloride 1,000 ml @ 25 mls/hr Q24H IV Last administered on 03/25/19at 14:27; Start 03/20/19 at 14:27 Morphine Sulfate 30 ml @ 0 mls/hr CONT PRN PRN IV PER PROTOCOL Last administered on 03/25/19at 13:54; Start 03/20/19 at 14:30 Ondansetron HCl (Zofran) 4 mg PRN Q6HRS PRN IVP NAUESA, 1ST CHOICE Last administered on 03/26/19at 13:54; Start 03/20/19 at 14:30 Lorazepam (Ativan Inj) 2 mg PRN Q1HR PRN IV For CIWA 8-14 Last administered on 03/26/19at 05:00; Start 03/20/19 at 20:00 Lorazepam (Ativan Inj) 4 mg PRN Q1HR PRN IV For CIWA 15 or greater Last administered on 03/26/19at 09:16; Start 03/20/19 at 20:00 Metoprolol Tartrate (Lopressor Vial) 5 mg PRN Q6HRS PRN IVP HYPERTENSION Last administered on 03/23/19at 04:38; Start 03/20/19 at 23:30; Stop 03/24/19 at 08:56; Status DC Dexmedetomidine HCl 400 mcg/ Sodium Chloride 100 ml @ 0 mls/hr CONT PRN IV AGITATION Last administered on 03/23/19at 05:08; Start 03/21/19 at 23:15; Stop 03/24/19 at 03:59; Status DC Sodium Chloride 500 ml @ 500 mls/hr 1X PRN PRN IV ANXIETY / AGITATION; Start 03/21/19 at 23:15; Status Cancel Atropine Sulfate (ATROPINE 0.5mg SYRINGE) 0.5 mg PRN Q5MIN PRN IV SEE COMMENTS; Start 03/21/19 at 23:15 Haloperidol Lactate (Haldol Inj) 5 mg PRN Q4HRS PRN IVP Hallucinatns,Confusn,Delirium Last administered on 03/26/19at 15:38; Start 03/22/19 at 11:30 Diphenhydramine HCl (Benadryl) 25 mg PRN Q15MIN PRN IVP EPS symptoms 2'Haldol admin Last administered on 03/23/19at 03:58; Start 03/22/19 at 11:30 Multivitamins 10 ml/Thiamine HCl 100 mg/Folic Acid 1 mg/Sodium Chloride 1,011.2 ml @ 100 mls/ hr DAILY IV Last administered on 03/26/19at 09:15; Start 03/22/19 at 21:00; Stop 03/26/19 at 19:07; Status DC Thiamine HCl 100 mg/Dextrose 51 ml @ 100 mls/hr DAILY IV ; Start 03/22/19 at 21:00; Stop 03/26/19 at 09:31; Status UNV Ziprasidone (Geodon Im) 10 mg PRN Q6HRS PRN IM Agitation; Start 03/23/19 at 05:00 Metoprolol Tartrate (Lopressor Vial) 10 mg PRN Q6HRS PRN IVP HYPERTENSION; Start 03/24/19 at 09:00; Stop 03/24/19 at 12:56; Status DC Potassium Chloride/Dextrose/ Sod Cl 1,000 ml @ 85 mls/hr [id number] IV Last administered on 03/25/19at 09:07; Start 03/24/19 at 09:00; Stop 03/25/19 at 15:59; Status DC Labetalol HCl (Normodyne Iv Push) 10 mg PRN Q2HR PRN IVP HYPERTENSION Last administered on 03/27/19at 06:04; Start 03/24/19 at 13:00 Labetalol HCl (Normodyne Iv Push) 20 mg 1X ONCE IVP Last administered on 03/24/19at 13:00; Start 03/24/19 at 13:00; Stop 03/24/19 at 13:01; Status DC Amino Acids/ Electrolytes/ Dextrose 1,000 ml @ 80 mls/hr [id number] IV Last administered on 03/26/19at 18:37; Start 03/25/19 at 16:00; Stop 03/27/19 at 17:06; Status DC Potassium Chloride/Water 100 ml @ 100 mls/hr Q1H IV ; Start 03/25/19 at 18:45; Stop 03/25/19 at 20:44; Status UNV Potassium Chloride/Water 100 ml @ 100 mls/hr Q1H IV Last administered on 03/26/19at 00:30; Start 03/25/19 at 19:00; Stop 03/25/19 at 22:59; Status DC Thiamine HCl 100 mg/Dextrose 51 ml @ 100 mls/hr DAILY IV Last administered on 03/27/19at 08:57; Start 03/27/19 at 09:00; Stop 03/31/19 at 09:31 Potassium Chloride/Water 100 ml @ 100 mls/hr Q1H IV ; Start 03/26/19 at 16:00; Stop 03/26/19 at 17:59; Status UNV Potassium Chloride/Water 100 ml @ 100 mls/hr Q1H IV Last administered on 03/26at 22:03; Start 03/26/19 at 16:00; Stop 03/26/19 at 19:59; Status DC Potassium Chloride (Klor-Con) 40 meq 1X ONCE PO Last administered on 03/27/19at 15:48; Start 03/27/19 at 12:15; Stop 03/27/19 at 12:16; Status DC Active Scripts Active Vitals/I & O Vital Sign - Last 24 Hours 03/27/19 03/27/19 03/27/19 03/27/19 08:00 11:00 15:00 19:44 Temp 98.9 99.0 98.1 98.9 99.0 98.1 Pulse 95 101 97 Resp 16 16 18 B/P (MAP) 156/90 (112) 130/94 (106) 146/101 (116) Pulse Ox 95 97 99 O2 Delivery Room Air Room Air Room Air Room Air 03/27/19 03/27/19 03/28/19 03/28/19 20:26 23:26 03:55 07:00 Temp 98.4 98.4 98.6 98.4 98.4 98.6 Pulse 103 93 97 Resp 18 20 18 B/P (MAP) 133/96 (108) 107/76 (86) 155/98 (117) Pulse Ox 96 95 98 O2 Delivery Room Air Room Air Room Air Room Air Intake and Output 03/27/19 03/27/19 03/28/19 15:00 23:00 07:00 Intake Total 0 ml 250 ml Output Total 150 ml 40 ml 50 ml Balance -150 ml -40 ml 200 ml DYAN SANDOVAL MD Mar 28, 2019 07:41
--- NOTE | 2019-03-28 08:08 | PDOC ---
SURGICAL PROGRESS NOTE Subjective wants to go home tolerating clears Vital Signs Vital Signs Date Time Temp Pulse Resp B/P (MAP) Pulse Ox O2 Delivery O2 Flow Rate FiO2 03/28/19 07:00 98.6 97 18 155/98 (117) 98 Room Air 98.6 I&O Intake and Output 03/28/19 07:00 Intake Total 250 ml Output Total 240 ml Balance 10 ml Intake Oral 250 ml Output Urine Total 150 ml Drainage Total 90 ml General: Alert, Cooperative Abdomen: Soft, Other (drain serous ) Labs Laboratory Tests Test 03/26/19 13:25 03/26/19 23:48 03/27/19 06:15 03/28/19 04:15 Ammonia < 10 mcmol/L (11-34) Glucose (Fingerstick) 100 mg/dL (70-99) White Blood Count 7.4 x10^3/uL (4.0-11.0) 8.8 x10^3/uL (4.0-11.0) Red Blood Count 4.51 x10^6/uL (4.30-5.70) 4.72 x10^6/uL (4.30-5.70) Hemoglobin 8.2 g/dL (13.0-17.5) 8.6 g/dL (13.0-17.5) Hematocrit 28.8 % (39.0-53.0) 30.5 % (39.0-53.0) Mean Corpuscular Volume 64 fL (79-100) 65 fL (79-100) Mean Corpuscular Hemoglobin 18 pg (25-35) 18 pg (25-35) Mean Corpuscular Hemoglobin Concent 29 g/dL (31-37) 28 g/dL (31-37) Red Cell Distribution Width 24.5 % (11.5-14.5) 25.5 % (11.5-14.5) Platelet Count 246 x10^3/uL (140-400) 322 x10^3/uL (140-400) Neutrophils (%) (Auto) 56 % (31-73) 49 % (31-73) Lymphocytes (%) (Auto) 19 % (24-48) 28 % (24-48) Monocytes (%) (Auto) 22 % (0-9) 20 % (0-9) Eosinophils (%) (Auto) 2 % (0-3) 3 % (0-3) Basophils (%) (Auto) 1 % (0-3) 1 % (0-3) Neutrophils # (Auto) 4.1 x10^3/uL (1.8-7.7) 4.3 x10^3/uL (1.8-7.7) Lymphocytes # (Auto) 1.4 x10^3/uL (1.0-4.8) 2.4 x10^3/uL (1.0-4.8) Monocytes # (Auto) 1.6 x10^3/uL (0.0-1.1) 1.7 x10^3/uL (0.0-1.1) Eosinophils # (Auto) 0.1 x10^3/uL (0.0-0.7) 0.2 x10^3/uL (0.0-0.7) Basophils # (Auto) 0.1 x10^3/uL (0.0-0.2) 0.1 x10^3/uL (0.0-0.2) Sodium Level 140 mmol/L (136-145) 140 mmol/L (136-145) Potassium Level 3.4 mmol/L (3.5-5.1) 3.8 mmol/L (3.5-5.1) Chloride Level 105 mmol/L (98-107) 106 mmol/L (98-107) Carbon Dioxide Level 21 mmol/L (21-32) 21 mmol/L (21-32) Anion Gap 14 (6-14) 13 (6-14) Blood Urea Nitrogen 7 mg/dL (8-26) 9 mg/dL (8-26) Creatinine 0.8 mg/dL (0.7-1.3) 0.9 mg/dL (0.7-1.3) Estimated GFR (Cockcroft-Gault) 100.4 87.6 BUN/Creatinine Ratio 9 (6-20) Glucose Level 94 mg/dL (70-99) 95 mg/dL (70-99) Calcium Level 8.6 mg/dL (8.5-10.1) 8.5 mg/dL (8.5-10.1) Magnesium Level 1.9 mg/dL (1.8-2.4) Total Bilirubin 0.9 mg/dL (0.2-1.0) Aspartate Amino Transf (AST/SGOT) 28 U/L (15-37) Alanine Aminotransferase (ALT/SGPT) 28 U/L (16-63) Alkaline Phosphatase 58 U/L (46-116) Total Protein 6.4 g/dL (6.4-8.2) Albumin 3.0 g/dL (3.4-5.0) Albumin/Globulin Ratio 0.9 (1.0-1.7) Laboratory Tests Test 03/28/19 04:15 White Blood Count 8.8 x10^3/uL (4.0-11.0) Red Blood Count 4.72 x10^6/uL (4.30-5.70) Hemoglobin 8.6 g/dL (13.0-17.5) Hematocrit 30.5 % (39.0-53.0) Mean Corpuscular Volume 65 fL (79-100) Mean Corpuscular Hemoglobin 18 pg (25-35) Mean Corpuscular Hemoglobin Concent 28 g/dL (31-37) Red Cell Distribution Width 25.5 % (11.5-14.5) Platelet Count 322 x10^3/uL (140-400) Neutrophils (%) (Auto) 49 % (31-73) Lymphocytes (%) (Auto) 28 % (24-48) Monocytes (%) (Auto) 20 % (0-9) Eosinophils (%) (Auto) 3 % (0-3) Basophils (%) (Auto) 1 % (0-3) Neutrophils # (Auto) 4.3 x10^3/uL (1.8-7.7) Lymphocytes # (Auto) 2.4 x10^3/uL (1.0-4.8) Monocytes # (Auto) 1.7 x10^3/uL (0.0-1.1) Eosinophils # (Auto) 0.2 x10^3/uL (0.0-0.7) Basophils # (Auto) 0.1 x10^3/uL (0.0-0.2) Sodium Level 140 mmol/L (136-145) Potassium Level 3.8 mmol/L (3.5-5.1) Chloride Level 106 mmol/L (98-107) Carbon Dioxide Level 21 mmol/L (21-32) Anion Gap 13 (6-14) Blood Urea Nitrogen 9 mg/dL (8-26) Creatinine 0.9 mg/dL (0.7-1.3) Estimated GFR (Cockcroft-Gault) 87.6 Glucose Level 95 mg/dL (70-99) Calcium Level 8.5 mg/dL (8.5-10.1) Assessment/Plan continue clears ANGELLA EDMONDSON APRN Mar 28, 2019 08:08
[2019-03-28] MEDS: FAMOTIDINE 20 MG/2 ML VIAL IVP SCH ×2 (08:56→21:48)
[2019-03-28] MEDS: ENOXAPARIN 40 MG/0.4 ML SYRINGE. SQ SCH (08:56)
[2019-03-28] MEDS: THIAMINE INJ 100 MG in IV DEXTROSE 5% 50 ML IV SCH (08:56)
--- NOTE | 2019-03-28 10:11 | PDOC ---
PROGRESS NOTES Assessment Alcohol withdrawal Alcoholism Alcohol withdrawal seizures Status-post resection of gastrointestinal stromal tumor. HTN Bilateral temporomandibular joint dislocations, 10/08 post seizure Plan Alcohol withdrawal protocol No need for additional neurological studies such as EEG or MRI. Subjective No complaints Objective Vital Signs Date Time Temp Pulse Resp B/P (MAP) Pulse Ox O2 Delivery O2 Flow Rate FiO2 03/28/19 07:00 98.6 97 18 155/98 (117) 98 Room Air 98.6 Intake and Output 03/28/19 07:00 Intake Total 250 ml Output Total 240 ml Balance 10 ml Intake Oral 250 ml Output Urine Total 150 ml Drainage Total 90 ml PHYSICAL EXAM Alert. Oriented to time, place and person. PERRL. EOMI. CN: no focal findings. Muscle tone: normal. Muscle strength: 5/5 DTR: 1+ Plantar reflex: flexor Gait: not examined in bed. Sensory exam: no abnormal findings. No cerebellar signs elicited. Postural tremor better Review of Relevant I have reviewed the following items lana (where applicable) has been applied. Labs Laboratory Tests Test 03/26/19 13:25 03/26/19 23:48 03/27/19 06:15 03/28/19 04:15 Ammonia < 10 mcmol/L (11-34) Glucose (Fingerstick) 100 mg/dL (70-99) White Blood Count 7.4 x10^3/uL (4.0-11.0) 8.8 x10^3/uL (4.0-11.0) Red Blood Count 4.51 x10^6/uL (4.30-5.70) 4.72 x10^6/uL (4.30-5.70) Hemoglobin 8.2 g/dL (13.0-17.5) 8.6 g/dL (13.0-17.5) Hematocrit 28.8 % (39.0-53.0) 30.5 % (39.0-53.0) Mean Corpuscular Volume 64 fL (79-100) 65 fL (79-100) Mean Corpuscular Hemoglobin 18 pg (25-35) 18 pg (25-35) Mean Corpuscular Hemoglobin Concent 29 g/dL (31-37) 28 g/dL (31-37) Red Cell Distribution Width 24.5 % (11.5-14.5) 25.5 % (11.5-14.5) Platelet Count 246 x10^3/uL (140-400) 322 x10^3/uL (140-400) Neutrophils (%) (Auto) 56 % (31-73) 49 % (31-73) Lymphocytes (%) (Auto) 19 % (24-48) 28 % (24-48) Monocytes (%) (Auto) 22 % (0-9) 20 % (0-9) Eosinophils (%) (Auto) 2 % (0-3) 3 % (0-3) Basophils (%) (Auto) 1 % (0-3) 1 % (0-3) Neutrophils # (Auto) 4.1 x10^3/uL (1.8-7.7) 4.3 x10^3/uL (1.8-7.7) Lymphocytes # (Auto) 1.4 x10^3/uL (1.0-4.8) 2.4 x10^3/uL (1.0-4.8) Monocytes # (Auto) 1.6 x10^3/uL (0.0-1.1) 1.7 x10^3/uL (0.0-1.1) Eosinophils # (Auto) 0.1 x10^3/uL (0.0-0.7) 0.2 x10^3/uL (0.0-0.7) Basophils # (Auto) 0.1 x10^3/uL (0.0-0.2) 0.1 x10^3/uL (0.0-0.2) Sodium Level 140 mmol/L (136-145) 140 mmol/L (136-145) Potassium Level 3.4 mmol/L (3.5-5.1) 3.8 mmol/L (3.5-5.1) Chloride Level 105 mmol/L (98-107) 106 mmol/L (98-107) Carbon Dioxide Level 21 mmol/L (21-32) 21 mmol/L (21-32) Anion Gap 14 (6-14) 13 (6-14) Blood Urea Nitrogen 7 mg/dL (8-26) 9 mg/dL (8-26) Creatinine 0.8 mg/dL (0.7-1.3) 0.9 mg/dL (0.7-1.3) Estimated GFR (Cockcroft-Gault) 100.4 87.6 BUN/Creatinine Ratio 9 (6-20) Glucose Level 94 mg/dL (70-99) 95 mg/dL (70-99) Calcium Level 8.6 mg/dL (8.5-10.1) 8.5 mg/dL (8.5-10.1) Magnesium Level 1.9 mg/dL (1.8-2.4) Total Bilirubin 0.9 mg/dL (0.2-1.0) Aspartate Amino Transf (AST/SGOT) 28 U/L (15-37) Alanine Aminotransferase (ALT/SGPT) 28 U/L (16-63) Alkaline Phosphatase 58 U/L (46-116) Total Protein 6.4 g/dL (6.4-8.2) Albumin 3.0 g/dL (3.4-5.0) Albumin/Globulin Ratio 0.9 (1.0-1.7) Laboratory Tests Test 03/28/19 04:15 White Blood Count 8.8 x10^3/uL (4.0-11.0) Red Blood Count 4.72 x10^6/uL (4.30-5.70) Hemoglobin 8.6 g/dL (13.0-17.5) Hematocrit 30.5 % (39.0-53.0) Mean Corpuscular Volume 65 fL (79-100) Mean Corpuscular Hemoglobin 18 pg (25-35) Mean Corpuscular Hemoglobin Concent 28 g/dL (31-37) Red Cell Distribution Width 25.5 % (11.5-14.5) Platelet Count 322 x10^3/uL (140-400) Neutrophils (%) (Auto) 49 % (31-73) Lymphocytes (%) (Auto) 28 % (24-48) Monocytes (%) (Auto) 20 % (0-9) Eosinophils (%) (Auto) 3 % (0-3) Basophils (%) (Auto) 1 % (0-3) Neutrophils # (Auto) 4.3 x10^3/uL (1.8-7.7) Lymphocytes # (Auto) 2.4 x10^3/uL (1.0-4.8) Monocytes # (Auto) 1.7 x10^3/uL (0.0-1.1) Eosinophils # (Auto) 0.2 x10^3/uL (0.0-0.7) Basophils # (Auto) 0.1 x10^3/uL (0.0-0.2) Sodium Level 140 mmol/L (136-145) Potassium Level 3.8 mmol/L (3.5-5.1) Chloride Level 106 mmol/L (98-107) Carbon Dioxide Level 21 mmol/L (21-32) Anion Gap 13 (6-14) Blood Urea Nitrogen 9 mg/dL (8-26) Creatinine 0.9 mg/dL (0.7-1.3) Estimated GFR (Cockcroft-Gault) 87.6 Glucose Level 95 mg/dL (70-99) Calcium Level 8.5 mg/dL (8.5-10.1) Medications Current Medications Ondansetron HCl (Zofran) 4 mg PRN Q6HRS PRN IV NAUSEA/VOMITING; Start 03/20/19 at 07:00; Stop 03/21/19 at 06:59; Status DC Fentanyl Citrate (Fentanyl 2ml Vial) 25 mcg PRN Q5MIN PRN IV MILD PAIN 1-3; Start 03/20/19 at 07:00; Stop 03/21/19 at 06:59; Status DC Fentanyl Citrate (Fentanyl 2ml Vial) 50 mcg PRN Q5MIN PRN IV MODERATE TO SEVERE PAIN Last administered on 03/20/19at 16:48; Start 03/20/19 at 07:00; Stop 03/21/19 at 06:59; Status DC Morphine Sulfate (Morphine Sulfate) 1 mg PRN Q10MIN PRN IV SEVERE PAIN 7-10 Last administered on 03/20/19at 15:04; Start 03/20/19 at 07:00; Stop 03/21/19 at 06:59; Status DC Ringer's Solution 1,000 ml @ 30 mls/hr Q24H IV Last administered on 03/20/19at 10:15; Start 03/20/19 at 07:00; Stop 03/20/19 at 18:59; Status DC Lidocaine HCl (Xylocaine-Mpf 1% 2ml Vial) 2 ml PRN 1X PRN ID PRIOR TO IV START; Start 03/20/19 at 07:00; Stop 03/21/19 at 06:59; Status DC Hydromorphone HCl (Dilaudid) 0.5 mg PRN Q10MIN PRN IV SEV PAIN, Second choice; Start 03/20/19 at 07:00; Stop 03/21/19 at 06:59; Status DC Prochlorperazine Edisylate (Compazine) 5 mg PACU PRN PRN IV NAUSEA, MRX1 Last administered on 03/20/19at 15:03; Start 03/20/19 at 07:00; Stop 03/21/19 at 06:59; Status DC Cefoxitin Sodium (Mefoxin) 2 gm PREOP PRN PRN IVP PREOP Last administered on 03/20/19at 11:02; Start 03/20/19 at 06:00; Stop 03/22/19 at 11:21; Status DC Propofol 20 ml @ As Directed STK-MED ONCE IV ; Start 03/20/19 at 09:21; Stop 03/20/19 at 09:22; Status DC Lidocaine HCl (Lidocaine Pf 2% Vial) 5 ml STK-MED ONCE .ROUTE ; Start 03/20/19 at 09:21; Stop 03/20/19 at 09:22; Status DC Ondansetron HCl (Zofran) 4 mg STK-MED ONCE .ROUTE ; Start 03/20/19 at 09:21; Stop 03/20/19 at 09:22; Status DC Dexamethasone Sodium Phosphate (Decadron) 4 mg STK-MED ONCE .ROUTE ; Start 03/20/19 at 09:21; Stop 03/20/19 at 09:22; Status DC Rocuronium Corder (Zemuron) 50 mg STK-MED ONCE .ROUTE ; Start 03/20/19 at 09:21; Stop 03/20/19 at 09:22; Status DC Fentanyl Citrate (Fentanyl 2ml Vial) 100 mcg STK-MED ONCE .ROUTE ; Start 03/20/19 at 09:22; Stop 03/20/19 at 09:22; Status DC Midazolam HCl (Versed) 2 mg STK-MED ONCE .ROUTE ; Start 03/20/19 at 09:22; Stop 03/20/19 at 09:22; Status DC Sevoflurane (Ultane) 60 ml STK-MED ONCE IH ; Start 03/20/19 at 09:43; Stop 03/20/19 at 09:43; Status DC Bupivacaine HCl/ Epinephrine Bitart (Sensorcain-Epi 0.5%-1:[id number] Mpf) 30 ml STK-MED ONCE .ROUTE Last administered on 03/20/19at 11:38; Start 03/20/19 at 10:14; Stop 03/20/19 at 10:15; Status DC Dexamethasone Sodium Phosphate (Decadron) 4 mg STK-MED ONCE .ROUTE ; Start 03/20/19 at 11:18; Stop 03/20/19 at 11:19; Status DC Fentanyl Citrate (Fentanyl 2ml Vial) 100 mcg STK-MED ONCE .ROUTE ; Start 03/20/19 at 11:38; Stop 03/20/19 at 11:39; Status DC Cellulose (Surgicel Hemostat 4x8) 1 each STK-MED ONCE .ROUTE Last administered on 03/20/19at 12:24; Start 03/20/19 at 12:24; Stop 03/20/19 at 12:24; Status DC Phenylephrine HCl (PHENYLEPHRINE in 0.9% NACL PF) 1 mg STK-MED ONCE IV ; Start 03/20/19 at 12:25; Stop 03/20/19 at 12:25; Status DC Ephedrine Sulfate (ePHEDrine PF IN SALINE SYRINGE) 50 mg STK-MED ONCE IV ; S tart 03/20/19 at 12:25; Stop 03/20/19 at 12:25; Status DC Neostigmine Corder (Neostigmine Methylsulfate) 5 mg STK-MED ONCE .ROUTE ; Start 03/20/19 at 12:25; Stop 03/20/19 at 12:25; Status DC Glycopyrrolate (Robinul) 1 mg STK-MED ONCE .ROUTE ; Start 03/20/19 at 12:25; Stop 03/20/19 at 12:26; Status DC Rocuronium Corder (Zemuron) 50 mg STK-MED ONCE .ROUTE ; Start 03/20/19 at 12:3 3; Stop 03/20/19 at 12:33; Status DC Cefoxitin Sodium (Mefoxin) 2 gm 1X ONCE IVP Last administered on 03/20/19at 13:02; Start 03/20/19 at 12:45; Stop 03/20/19 at 12:46; Status DC Albumin Human 500 ml @ As Directed STK-MED ONCE IV ; Start 03/20/19 at 13:05; Stop 03/20/19 at 13:05; Status DC Propofol 20 ml @ As Directed STK-MED ONCE IV ; Start 03/20/19 at 14:06; Stop 03/20/19 at 14:06; Status DC Desflurane (Suprane) 90 ml STK-MED ONCE IH ; Start 03/20/19 at 14:11; Stop 03/20/19 at 14:11; Status DC Famotidine (Pepcid Vial) 20 mg BID IVP Last administered on 03/28/19at 08:56; Start 03/20/19 at 21:00 Enoxaparin Sodium (Lovenox 40mg Syringe) 40 mg Q24H SQ Last administered on 03/28/19at 08:56; Start 03/21/19 at 09:00 Sodium Chloride (Normal Saline Flush) 3 ml QSHIFT PRN IV AFTER MEDS AND BLOOD DRAWS; Start 03/20/19 at 14:30 Ringer's Solution 1,000 ml @ 100 mls/hr Q10H IV Last administered on 03/23/19at 16:56; Start 03/20/19 at 14:27; Stop 03/24/19 at 08:56; Status DC Naloxone HCl (Narcan) 0.4 mg PRN Q2MIN PRN IV SEE INSTRUCTIONS; Start 03/20/19 at 14:30 Sodium Chloride 1,000 ml @ 25 mls/hr Q24H IV Last administered on 03/25/19at 14 :27; Start 03/20/19 at 14:27 Morphine Sulfate 30 ml @ 0 mls/hr CONT PRN PRN IV PER PROTOCOL Last administered on 03/25/19at 13:54; Start 03/20/19 at 14:30 Ondansetron HCl (Zofran) 4 mg PRN Q6HRS PRN IVP NAUESA, 1ST CHOICE Last administered on 03/26/19at 13:54; Start 03/20/19 at 14:30 Lorazepam (Ativan Inj) 2 mg PRN Q1HR PRN IV For CIWA 8-14 Last administered on 03/26/19at 05:00; Start 03/20/19 at 20:00 Lorazepam (Ativan Inj) 4 mg PRN Q1HR PRN IV For CIWA 15 or greater Last administered on 03/26/19at 09:16; Start 03/20/19 at 20:00 Metoprolol Tartrate (Lopressor Vial) 5 mg PRN Q6HRS PRN IVP HYPERTENSION Last administered on 03/23/19at 04:38; Start 03/20/19 at 23:30; Stop 03/24/19 at 08:56; Status DC Dexmedetomidine HCl 400 mcg/ Sodium Chloride 100 ml @ 0 mls/hr CONT PRN IV AGITATION Last administered on 03/23/19at 05:08; Start 03/21/19 at 23:15; Stop 03/24/19 at 03:59; Status DC Sodium Chloride 500 ml @ 500 mls/hr 1X PRN PRN IV ANXIETY / AGITATION; Start 03/21/19 at 23:15; Status Cancel Atropine Sulfate (ATROPINE 0.5mg SYRINGE) 0.5 mg PRN Q5MIN PRN IV SEE COMMENTS; Start 03/21/19 at 23:15 Haloperidol Lactate (Haldol Inj) 5 mg PRN Q4HRS PRN IVP Hallucinatns,Confusn,Delirium Last administered on 03/26/19at 15:38; Start 03/22/19 at 11:30 Diphenhydramine HCl (Benadryl) 25 mg PRN Q15MIN PRN IVP EPS symptoms 2'Haldol admin Last administered on 03/23/19at 03:58; Start 03/22/19 at 11:30 Multivitamins 10 ml/Thiamine HCl 100 mg/Folic Acid 1 mg/Sodium Chloride 1,011.2 ml @ 100 mls/ hr DAILY IV Last administered on 03/26/19at 09:15; Start 03/22/19 at 21:00; Stop 03/26/19 at 19:07; Status DC Thiamine HCl 100 mg/Dextrose 51 ml @ 100 mls/hr DAILY IV ; Start 03/22/19 at 21:00; Stop 03/26/19 at 09:31; Status UNV Ziprasidone (Geodon Im) 10 mg PRN Q6HRS PRN IM Agitation; Start 03/23/19 at 05:00 Metoprolol Tartrate (Lopressor Vial) 10 mg PRN Q6HRS PRN IVP HYPERTENSION; Start 03/24/19 at 09:00; Stop 03/24/19 at 12:56; Status DC Potassium Chloride/Dextrose/ Sod Cl 1,000 ml @ 85 mls/hr [id number] IV Last administered on 03/25/19at 09:07; Start 03/24/19 at 09:00; Stop 03/25/19 at 15:59; Status DC Labetalol HCl (Normodyne Iv Push) 10 mg PRN Q2HR PRN IVP HYPERTENSION Last administered on 03/27/19at 06:04; Start 03/24/19 at 13:00 Labetalol HCl (Normodyne Iv Push) 20 mg 1X ONCE IVP Last administered on 03/24/19at 13:00; Start 03/24/19 at 13:00; Stop 03/24/19 at 13:01; Status DC Amino Acids/ Electrolytes/ Dextrose 1,000 ml @ 80 mls/hr [id number] IV Last administered on 03/26/19at 18:37; Start 03/25/19 at 16:00; Stop 03/27/19 at 17:06; Status DC Potassium Chloride/Water 100 ml @ 100 mls/hr Q1H IV ; Start 03/25/19 at 18:45; Stop 03/25/19 at 20:44; Status UNV Potassium Chloride/Water 100 ml @ 100 mls/hr Q1H IV Last administered on 03/26/19at 00:30; Start 03/25/19 at 19:00; Stop 03/25/19 at 22:59; Status DC Thiamine HCl 100 mg/Dextrose 51 ml @ 100 mls/hr DAILY IV Last administered on 03/28/19at 08:56; Start 03/27/19 at 09:00; Stop 03/31/19 at 09:31 Potassium Chloride/Water 100 ml @ 100 mls/hr Q1H IV ; Start 03/26/19 at 16:00; Stop 03/26/19 at 17:59; Status UNV Potassium Chloride/Water 100 ml @ 100 mls/hr Q1H IV Last administered on 03/26/19at 22:03; Start 03/26/19 at 16:00; Stop 03/26/19 at 19:59; Status DC Potassium Chloride (Klor-Con) 40 meq 1X ONCE PO Last administered on 03/27/19at 15:48; Start 03/27/19 at 12:15; Stop 03/27/19 at 12:16; Status DC Active Scripts Active Vitals/I & O Vital Sign - Last 24 Hours 03/27/19 03/27/19 03/27/19 03/27/19 11:00 15:00 19:44 20:26 Temp 98.9 99.0 98.1 98.9 99.0 98.1 Pulse 95 101 97 Resp 16 16 18 B/P (MAP) 156/90 (112) 130/94 (106) 146/101 (116) Pulse Ox 95 97 99 O2 Delivery Room Air Room Air Room Air Room Air 03/27/19 03/28/19 03/28/19 23:26 03:55 07:00 Temp 98.4 98.4 98.6 98.4 98.4 98.6 Pulse 103 93 97 Resp 18 20 18 B/P (MAP) 133/96 (108) 107/76 (86) 155/98 (117) Pulse Ox 96 95 98 O2 Delivery Room Air Room Air Room Air Intake and Output 03/27/19 03/27/19 03/28/19 15:00 23:00 07:00 Intake Total 0 ml 250 ml Output Total 150 ml 40 ml 50 ml Balance -150 ml -40 ml 200 ml CARMEN TAYLOR MD Mar 28, 2019 10:11
--- NOTE | 2019-03-28 10:21 | PDOC ---
PULMONARY PROGRESS NOTES Subjective Denies SOA, or increased cough reports overnight seizure Vitals Vital Signs Date Time Temp Pulse Resp B/P (MAP) Pulse Ox O2 Delivery O2 Flow Rate FiO2 03/28/19 07:00 98.6 97 18 155/98 (117) 98 Room Air 98.6 ROS: No Nausea, No Chest Pain, No Abdominal Pain, No Increase Cough General: Alert, Oriented X4 Lungs: Clear Cardiovascular: S1, S2 Abdomen: Soft Neuro Exam: Alert Extremities: No Edema Skin: Warm, Dry Labs Laboratory Tests Test 03/26/19 13:25 03/26/19 23:48 03/27/19 06:15 03/28/19 04:15 Ammonia < 10 mcmol/L (11-34) Glucose (Fingerstick) 100 mg/dL (70-99) White Blood Count 7.4 x10^3/uL (4.0-11.0) 8.8 x10^3/uL (4.0-11.0) Red Blood Count 4.51 x10^6/uL (4.30-5.70) 4.72 x10^6/uL (4.30-5.70) Hemoglobin 8.2 g/dL (13.0-17.5) 8.6 g/dL (13.0-17.5) Hematocrit 28.8 % (39.0-53.0) 30.5 % (39.0-53.0) Mean Corpuscular Volume 64 fL (79-100) 65 fL (79-100) Mean Corpuscular Hemoglobin 18 pg (25-35) 18 pg (25-35) Mean Corpuscular Hemoglobin Concent 29 g/dL (31-37) 28 g/dL (31-37) Red Cell Distribution Width 24.5 % (11.5-14.5) 25.5 % (11.5-14.5) Platelet Count 246 x10^3/uL (140-400) 322 x10^3/uL (140-400) Neutrophils (%) (Auto) 56 % (31-73) 49 % (31-73) Lymphocytes (%) (Auto) 19 % (24-48) 28 % (24-48) Monocytes (%) (Auto) 22 % (0-9) 20 % (0-9) Eosinophils (%) (Auto) 2 % (0-3) 3 % (0-3) Basophils (%) (Auto) 1 % (0-3) 1 % (0-3) Neutrophils # (Auto) 4.1 x10^3/uL (1.8-7.7) 4.3 x10^3/uL (1.8-7.7) Lymphocytes # (Auto) 1.4 x10^3/uL (1.0-4.8) 2.4 x10^3/uL (1.0-4.8) Monocytes # (Auto) 1.6 x10^3/uL (0.0-1.1) 1.7 x10^3/uL (0.0-1.1) Eosinophils # (Auto) 0.1 x10^3/uL (0.0-0.7) 0.2 x10^3/uL (0.0-0.7) Basophils # (Auto) 0.1 x10^3/uL (0.0-0.2) 0.1 x10^3/uL (0.0-0.2) Sodium Level 140 mmol/L (136-145) 140 mmol/L (136-145) Potassium Level 3.4 mmol/L (3.5-5.1) 3.8 mmol/L (3.5-5.1) Chloride Level 105 mmol/L (98-107) 106 mmol/L (98-107) Carbon Dioxide Level 21 mmol/L (21-32) 21 mmol/L (21-32) Anion Gap 14 (6-14) 13 (6-14) Blood Urea Nitrogen 7 mg/dL (8-26) 9 mg/dL (8-26) Creatinine 0.8 mg/dL (0.7-1.3) 0.9 mg/dL (0.7-1.3) Estimated GFR (Cockcroft-Gault) 100.4 87.6 BUN/Creatinine Ratio 9 (6-20) Glucose Level 94 mg/dL (70-99) 95 mg/dL (70-99) Calcium Level 8.6 mg/dL (8.5-10.1) 8.5 mg/dL (8.5-10.1) Magnesium Level 1.9 mg/dL (1.8-2.4) Total Bilirubin 0.9 mg/dL (0.2-1.0) Aspartate Amino Transf (AST/SGOT) 28 U/L (15-37) Alanine Aminotransferase (ALT/SGPT) 28 U/L (16-63) Alkaline Phosphatase 58 U/L (46-116) Total Protein 6.4 g/dL (6.4-8.2) Albumin 3.0 g/dL (3.4-5.0) Albumin/Globulin Ratio 0.9 (1.0-1.7) Laboratory Tests Test 03/28/19 04:15 White Blood Count 8.8 x10^3/uL (4.0-11.0) Red Blood Count 4.72 x10^6/uL (4.30-5.70) Hemoglobin 8.6 g/dL (13.0-17.5) Hematocrit 30.5 % (39.0-53.0) Mean Corpuscular Volume 65 fL (79-100) Mean Corpuscular Hemoglobin 18 pg (25-35) Mean Corpuscular Hemoglobin Concent 28 g/dL (31-37) Red Cell Distribution Width 25.5 % (11.5-14.5) Platelet Count 322 x10^3/uL (140-400) Neutrophils (%) (Auto) 49 % (31-73) Lymphocytes (%) (Auto) 28 % (24-48) Monocytes (%) (Auto) 20 % (0-9) Eosinophils (%) (Auto) 3 % (0-3) Basophils (%) (Auto) 1 % (0-3) Neutrophils # (Auto) 4.3 x10^3/uL (1.8-7.7) Lymphocytes # (Auto) 2.4 x10^3/uL (1.0-4.8) Monocytes # (Auto) 1.7 x10^3/uL (0.0-1.1) Eosinophils # (Auto) 0.2 x10^3/uL (0.0-0.7) Basophils # (Auto) 0.1 x10^3/uL (0.0-0.2) Sodium Level 140 mmol/L (136-145) Potassium Level 3.8 mmol/L (3.5-5.1) Chloride Level 106 mmol/L (98-107) Carbon Dioxide Level 21 mmol/L (21-32) Anion Gap 13 (6-14) Blood Urea Nitrogen 9 mg/dL (8-26) Creatinine 0.9 mg/dL (0.7-1.3) Estimated GFR (Cockcroft-Gault) 87.6 Glucose Level 95 mg/dL (70-99) Calcium Level 8.5 mg/dL (8.5-10.1) Medications Active Scripts Medications Dose Route/Sig Max Daily Dose Days Date Category Impression . IMPRESSION: 1. Expected hypoxemia after surgical intervention related to possible atelectasis. ON ra NOW 2. Acute respiratory failure secondary to above. 3. Status post laparoscopic partial gastrectomy and liver biopsy. 4. Alcoholism. 5. History of seizure disorder. 6. DT 7. MET ENCE POA 8.Seizures Plan . STABLE PULMONARY SOLITARIO FOR DC WILL S/O CONTINUE IS DENISE SORTO MD Mar 28, 2019 10:21
[2019-03-28 10:57] VITALS: BP 155/97
[2019-03-28] MEDS: IV NORMAL SALINE 1000ML BAG 1,000 ML IV SCH (14:27)
[2019-03-28 14:48] VITALS: BP 137/86
[2019-03-28 19:49] VITALS: BP 147/97
[2019-03-28 23:48] VITALS: BP 167/104
[2019-03-29 03:46] VITALS: BP 167/92
[2019-03-29 05:05] LABS: BASO # 0.2 x10^3/uL (0.0-0.2); BASO % 2 % (0-3); EOS # 0.2 x10^3/uL (0.0-0.7); EOS % 2 % (0-3); HEMATOCRIT 27.1 % (39.0-53.0); HEMOGLOBIN 7.9 g/dL (13.0-17.5); LYMPH # 2.4 x10^3/uL (1.0-4.8); LYMPH % 29 % (24-48); MEAN CORPUSCULAR HEMOGLOBIN 19 pg (25-35); MEAN CORPUSCULAR HGB CONC 29 g/dL (31-37); MEAN CORPUSCULAR VOLUME 64 fL (79-100); MONO # 1.4 x10^3/uL (0.0-1.1); MONO % 17 % (0-9); NEUT % 49 % (31-73); PLATELET COUNT 354 x10^3/uL (140-400); RED BLOOD COUNT 4.21 x10^6/uL (4.30-5.70); RED CELL DISTRIBUTION WIDTH 24.7 % (11.5-14.5); WHITE BLOOD COUNT 8.2 x10^3/uL (4.0-11.0)
[2019-03-29 06:07] LABS: CALCIUM 8.4 mg/dL (8.5-10.1); CREATININE 0.8 mg/dL (0.7-1.3); GFR 100.4; POTASSIUM 3.5 mmol/L (3.5-5.1)
[2019-03-29 07:00] VITALS: BP 159/105
[2019-03-29] MEDS: FAMOTIDINE 20 MG/2 ML VIAL IVP SCH (08:10)
[2019-03-29] MEDS: ENOXAPARIN 40 MG/0.4 ML SYRINGE. SQ SCH (08:11)
--- NOTE | 2019-03-29 09:57 | PDOC ---
PROGRESS NOTES Assessment Alcohol withdrawal Alcoholism Alcohol withdrawal seizures Status-post resection of gastrointestinal stromal tumor. HTN Bilateral temporomandibular joint dislocations, 10/08 post seizure Plan Alcohol withdrawal protocol Not on anticonvulsant No need for additional neurological studies such as EEG or MRI. Okay for discharge Subjective No complaints, eating well, wants to go home Objective Vital Signs Date Time Temp Pulse Resp B/P (MAP) Pulse Ox O2 Delivery O2 Flow Rate FiO2 03/29/19 07:00 98.0 83 20 159/105 (123) 98 Room Air 98.0 Intake and Output 03/29/19 07:00 Intake Total 850 ml Output Total 30 ml Balance 820 ml Intake Oral 850 ml Other 30 ml PHYSICAL EXAM Alert. Oriented to time, place and person. PERRL. EOMI. CN: no focal findings. Muscle tone: normal. Muscle strength: 5/5 DTR: 1+ Plantar reflex: flexor Gait: not examined in bed. Sensory exam: no abnormal findings. No cerebellar signs elicited. No tremor Review of Relevant I have reviewed the following items lana (where applicable) has been applied. Labs Laboratory Tests Test 03/28/19 04:15 03/29/19 03:40 White Blood Count 8.8 x10^3/uL (4.0-11.0) 8.2 x10^3/uL (4.0-11.0) Red Blood Count 4.72 x10^6/uL (4.30-5.70) 4.21 x10^6/uL (4.30-5.70) Hemoglobin 8.6 g/dL (13.0-17.5) 7.9 g/dL (13.0-17.5) Hematocrit 30.5 % (39.0-53.0) 27.1 % (39.0-53.0) Mean Corpuscular Volume 65 fL (79-100) 64 fL (79-100) Mean Corpuscular Hemoglobin 18 pg (25-35) 19 pg (25-35) Mean Corpuscular Hemoglobin Concent 28 g/dL (31-37) 29 g/dL (31-37) Red Cell Distribution Width 25.5 % (11.5-14.5) 24.7 % (11.5-14.5) Platelet Count 322 x10^3/uL (140-400) 354 x10^3/uL (140-400) Neutrophils (%) (Auto) 49 % (31-73) 49 % (31-73) Lymphocytes (%) (Auto) 28 % (24-48) 29 % (24-48) Monocytes (%) (Auto) 20 % (0-9) 17 % (0-9) Eosinophils (%) (Auto) 3 % (0-3) 2 % (0-3) Basophils (%) (Auto) 1 % (0-3) 2 % (0-3) Neutrophils # (Auto) 4.3 x10^3/uL (1.8-7.7) 4.0 x10^3/uL (1.8-7.7) Lymphocytes # (Auto) 2.4 x10^3/uL (1.0-4.8) 2.4 x10^3/uL (1.0-4.8) Monocytes # (Auto) 1.7 x10^3/uL (0.0-1.1) 1.4 x10^3/uL (0.0-1.1) Eosinophils # (Auto) 0.2 x10^3/uL (0.0-0.7) 0.2 x10^3/uL (0.0-0.7) Basophils # (Auto) 0.1 x10^3/uL (0.0-0.2) 0.2 x10^3/uL (0.0-0.2) Sodium Level 140 mmol/L (136-145) 138 mmol/L (136-145) Potassium Level 3.8 mmol/L (3.5-5.1) 3.5 mmol/L (3.5-5.1) Chloride Level 106 mmol/L (98-107) 106 mmol/L (98-107) Carbon Dioxide Level 21 mmol/L (21-32) 22 mmol/L (21-32) Anion Gap 13 (6-14) 10 (6-14) Blood Urea Nitrogen 9 mg/dL (8-26) 7 mg/dL (8-26) Creatinine 0.9 mg/dL (0.7-1.3) 0.8 mg/dL (0.7-1.3) Estimated GFR (Cockcroft-Gault) 87.6 100.4 Glucose Level 95 mg/dL (70-99) 85 mg/dL (70-99) Calcium Level 8.5 mg/dL (8.5-10.1) 8.4 mg/dL (8.5-10.1) Laboratory Tests Test 03/29/19 03:40 White Blood Count 8.2 x10^3/uL (4.0-11.0) Red Blood Count 4.21 x10^6/uL (4.30-5.70) Hemoglobin 7.9 g/dL (13.0-17.5) Hematocrit 27.1 % (39.0-53.0) Mean Corpuscular Volume 64 fL (79-100) Mean Corpuscular Hemoglobin 19 pg (25-35) Mean Corpuscular Hemoglobin Concent 29 g/dL (31-37) Red Cell Distribution Width 24.7 % (11.5-14.5) Platelet Count 354 x10^3/uL (140-400) Neutrophils (%) (Auto) 49 % (31-73) Lymphocytes (%) (Auto) 29 % (24-48) Monocytes (%) (Auto) 17 % (0-9) Eosinophils (%) (Auto) 2 % (0-3) Basophils (%) (Auto) 2 % (0-3) Neutrophils # (Auto) 4.0 x10^3/uL (1.8-7.7) Lymphocytes # (Auto) 2.4 x10^3/uL (1.0-4.8) Monocytes # (Auto) 1.4 x10^3/uL (0.0-1.1) Eosinophils # (Auto) 0.2 x10^3/uL (0.0-0.7) Basophils # (Auto) 0.2 x10^3/uL (0.0-0.2) Sodium Level 138 mmol/L (136-145) Potassium Level 3.5 mmol/L (3.5-5.1) Chloride Level 106 mmol/L (98-107) Carbon Dioxide Level 22 mmol/L (21-32) Anion Gap 10 (6-14) Blood Urea Nitrogen 7 mg/dL (8-26) Creatinine 0.8 mg/dL (0.7-1.3) Estimated GFR (Cockcroft-Gault) 100.4 Glucose Level 85 mg/dL (70-99) Calcium Level 8.4 mg/dL (8.5-10.1) Medications Current Medications Ondansetron HCl (Zofran) 4 mg PRN Q6HRS PRN IV NAUSEA/VOMITING; Start 03/20/19 at 07:00; Stop 03/21/19 at 06:59; Status DC Fentanyl Citrate (Fentanyl 2ml Vial) 25 mcg PRN Q5MIN PRN IV MILD PAIN 1-3; Start 03/20/19 at 07:00; Stop 03/21/19 at 06:59; Status DC Fentanyl Citrate (Fentanyl 2ml Vial) 50 mcg PRN Q5MIN PRN IV MODERATE TO SEVERE PAIN Last administered on 03/20/19at 16:48; Start 03/20/19 at 07:00; Stop 03/21/19 at 06:59; Status DC Morphine Sulfate (Morphine Sulfate) 1 mg PRN Q10MIN PRN IV SEVERE PAIN 7-10 Last administered on 03/20/19at 15:04; Start 03/20/19 at 07:00; Stop 03/21/19 at 06:59; Status DC Ringer's Solution 1,000 ml @ 30 mls/hr Q24H IV Last administered on 03/20/19at 10:15; Start 03/20/19 at 07:00; Stop 03/20/19 at 18:59; Status DC Lidocaine HCl (Xylocaine-Mpf 1% 2ml Vial) 2 ml PRN 1X PRN ID PRIOR TO IV START; Start 03/20/19 at 07:00; Stop 03/21/19 at 06:59; Status DC Hydromorphone HCl (Dilaudid) 0.5 mg PRN Q10MIN PRN IV SEV PAIN, Second choice; Start 03/20/19 at 07:00; Stop 03/21/19 at 06:59; Status DC Prochlorperazine Edisylate (Compazine) 5 mg PACU PRN PRN IV NAUSEA, MRX1 Last administered on 03/20/19at 15:03; Start 03/20/19 at 07:00; Stop 03/21/19 at 06:59; Status DC Cefoxitin Sodium (Mefoxin) 2 gm PREOP PRN PRN IVP PREOP Last administered on 03/20/19at 11:02; Start 03/20/19 at 06:00; Stop 03/22/19 at 11:21; Status DC Propofol 20 ml @ As Directed STK-MED ONCE IV ; Start 03/20/19 at 09:21; Stop 03/20/19 at 09:22; Status DC Lidocaine HCl (Lidocaine Pf 2% Vial) 5 ml STK-MED ONCE .ROUTE ; Start 03/20/19 at 09:21; Stop 03/20/19 at 09:22; Status DC Ondansetron HCl (Zofran) 4 mg STK-MED ONCE .ROUTE ; Start 03/20/19 at 09:21; Stop 03/20/19 at 09:22; Status DC Dexamethasone Sodium Phosphate (Decadron) 4 mg STK-MED ONCE .ROUTE ; Start 03/20/19 at 09:21; Stop 03/20/19 at 09:22; Status DC Rocuronium [place] (Zemuron) 50 mg STK-MED ONCE .ROUTE ; Start 03/20/19 at 09:21; Stop 03/20/19 at 09:22; Status DC Fentanyl Citrate (Fentanyl 2ml Vial) 100 mcg STK-MED ONCE .ROUTE ; Start 03/20/19 at 09:22; Stop 03/20/19 at 09:22; Status DC Midazolam HCl (Versed) 2 mg STK-MED ONCE .ROUTE ; Start 03/20/19 at 09:22; Stop 03/20/19 at 09:22; Status DC Sevoflurane (Ultane) 60 ml STK-MED ONCE IH ; Start 03/20/19 at 09:43; Stop 03/20/19 at 09:43; Status DC Bupivacaine HCl/ Epinephrine Bitart (Sensorcain-Epi 0.5%-1:[id number] Mpf) 30 ml STK-MED ONCE .ROUTE Last administered on 03/20/19at 11:38; Start 03/20/19 at 10:14; Stop 03/20/19 at 10:15; Status DC Dexamethasone Sodium Phosphate (Decadron) 4 mg STK-MED ONCE .ROUTE ; Start 03/20/19 at 11:18; Stop 03/20/19 at 11:19; Status DC Fentanyl Citrate (Fentanyl 2ml Vial) 100 mcg STK-MED ONCE .ROUTE ; Start 03/20/19 at 11:38; Stop 03/20/19 at 11:39; Status DC Cellulose (Surgicel Hemostat 4x8) 1 each STK-MED ONCE .ROUTE Last administered on 03/20/19at 12:24; Start 03/20/19 at 12:24; Stop 03/20/19 at 12:24; Status DC Phenylephrine HCl (PHENYLEPHRINE in 0.9% NACL PF) 1 mg STK-MED ONCE IV ; Start 03/20/19 at 12:25; Stop 03/20/19 at 12:25; Status DC Ephedrine Sulfate (ePHEDrine PF IN SALINE SYRINGE) 50 mg STK-MED ONCE IV ; Start 03/20/19 at 12:25; Stop 03/20/19 at 12:25; Status DC Neostigmine [place] (Neostigmine Methylsulfate) 5 mg STK-MED ONCE .ROUTE ; Start 03/20/19 at 12:25; Stop 03/20/19 at 12:25; Status DC Glycopyrrolate (Robinul) 1 mg STK-MED ONCE .ROUTE ; Start 03/20/19 at 12:25; Stop 03/20/19 at 12:26; Status DC Rocuronium [place] (Zemuron) 50 mg STK-MED ONCE .ROUTE ; Start 03/20/19 at 12:33; Stop 03/20/19 at 12:33; Status DC Cefoxitin Sodium (Mefoxin) 2 gm 1X ONCE IVP Last administered on 03/20/19at 13:02; Start 03/20/19 at 12:45; Stop 03/20/19 at 12:46; Status DC Albumin Human 500 ml @ As Directed STK-MED ONCE IV ; Start 03/20/19 at 13:05; Stop 03/20/19 at 13:05; Status DC Propofol 20 ml @ As Directed STK-MED ONCE IV ; Start 03/20/19 at 14:06; Stop 03/20/19 at 14:06; Status DC Desflurane (Suprane) 90 ml STK-MED ONCE IH ; Start 03/20/19 at 14:11; Stop 03/20/19 at 14:11; Status DC Famotidine (Pepcid Vial) 20 mg BID IVP Last administered on 03/29/19at 08:10; Start 03/20/19 at 21:00 Enoxaparin Sodium (Lovenox 40mg Syringe) 40 mg Q24H SQ Last administered on 03/29/19at 08:11; Start 03/21/19 at 09:00 Sodium Chloride (Normal Saline Flush) 3 ml QSHIFT PRN IV AFTER MEDS AND BLOOD DRAWS; Start 03/20/19 at 14:30 Ringer's Solution 1,000 ml @ 100 mls/hr Q10H IV Last administered on 03/23/19at 16:56; Start 03/20/19 at 14:27; Stop 03/24/19 at 08:56; Status DC Naloxone HCl (Narcan) 0.4 mg PRN Q2MIN PRN IV SEE INSTRUCTIONS; Start 03/20/19 at 14:30 Sodium Chloride 1,000 ml @ 25 mls/hr Q24H IV Last administered on 03/25/19at 14:27; Start 03/20/19 at 14:27 Morphine Sulfate 30 ml @ 0 mls/hr CONT PRN PRN IV PER PROTOCOL Last administered on 03/25/19at 13:54; Start 03/20/19 at 14:30 Ondansetron HCl (Zofran) 4 mg PRN Q6HRS PRN IVP NAUESA, 1ST CHOICE Last administered on 03/26/19at 13:54; Start 03/20/19 at 14:30 Lorazepam (Ativan Inj) 2 mg PRN Q1HR PRN IV For CIWA 8-14 Last administered on 03/26/19at 05:00; Start 03/20/19 at 20:00 Lorazepam (Ativan Inj) 4 mg PRN Q1HR PRN IV For CIWA 15 or greater Last administered on 03/26/19at 09:16; Start 03/20/19 at 20:00 Metoprolol Tartrate (Lopressor Vial) 5 mg PRN Q6HRS PRN IVP HYPERTENSION Last administered on 03/23/19at 04:38; Start 03/20/19 at 23:30; Stop 03/24/19 at 08:56; Status DC Dexmedetomidine HCl 400 mcg/ Sodium Chloride 100 ml @ 0 mls/hr CONT PRN IV AGITATION Last administered on 03/23/19at 05:08; Start 03/21/19 at 23:15; Stop 03/24/19 at 03:59; Status DC Sodium Chloride 500 ml @ 500 mls/hr 1X PRN PRN IV ANXIETY / AGITATION; Start 03/21/19 at 23:15; Status Cancel Atropine Sulfate (ATROPINE 0.5mg SYRINGE) 0.5 mg PRN Q5MIN PRN IV SEE COMMENTS; Start 03/21/19 at 23:15 Haloperidol Lactate (Haldol Inj) 5 mg PRN Q4HRS PRN IVP Hallucinatns,Confusn,Delirium Last administered on 03/26/19at 15:38; Start 02/23 11/11 at 11:30 Diphenhydramine HCl (Benadryl) 25 mg PRN Q15MIN PRN IVP EPS symptoms 2'Haldol admin Last administered on 03/23/19at 03:58; Start 03/22/19 at 11:30 Multivitamins 10 ml/Thiamine HCl 100 mg/Folic Acid 1 mg/Sodium Chloride 1,011.2 ml @ 100 mls/ hr DAILY IV Last administered on 03/26/19at 09:15; Start 03/22/19 at 21:00; Stop 03/26/19 at 19:07; Status DC Thiamine HCl 100 mg/Dextrose 51 ml @ 100 mls/hr DAILY IV ; Start 03/22/19 at 21:00; Stop 03/26/19 at 09:31; Status UNV Ziprasidone (Geodon Im) 10 mg PRN Q6HRS PRN IM Agitation; Start 03/23/19 at 05:00 Metoprolol Tartrate (Lopressor Vial) 10 mg PRN Q6HRS PRN IVP HYPERTENSION; Start 03/24/19 at 09:00; Stop 03/24/19 at 12:56; Status DC Potassium Chloride/Dextrose/ Sod Cl 1,000 ml @ 85 mls/hr [id number] IV Last administered on 03/25/19at 09:07; Start 03/24/19 at 09:00; Stop 03/25/19 at 15:59; Status DC Labetalol HCl (Normodyne Iv Push) 10 mg PRN Q2HR PRN IVP HYPERTENSION Last administered on 03/27/19at 06:04; Start 03/24/19 at 13:00 Labetalol HCl (Normodyne Iv Push) 20 mg 1X ONCE IVP Last administered on 03/24/19at 13:00; Start 03/24/19 at 13:00; Stop 03/24/19 at 13:01; Status DC Amino Acids/ Electrolytes/ Dextrose 1,000 ml @ 80 mls/hr [id number] IV Last administered on 03/26/19at 18:37; Start 03/25/19 at 16:00; Stop 03/27/19 at 17:06; Status DC Potassium Chloride/Water 100 ml @ 100 mls/hr Q1H IV ; Start 03/25/19 at 18:45; Stop 03/25/19 at 20:44; Status UNV Potassium Chloride/Water 100 ml @ 100 mls/hr Q1H IV Last administered on 03/26/19at 00:30; Start 03/25/19 at 19:00; Stop 03/25/19 at 22:59; Status DC Thiamine HCl 100 mg/Dextrose 51 ml @ 100 mls/hr DAILY IV Last administered on 03/28/19at 08:56; Start 03/27/19 at 09:00; Stop 03/31/19 at 09:31 Potassium Chloride/Water 100 ml @ 100 mls/hr Q1H IV ; Start 03/26/19 at 16:00; Stop 03/26/19 at 17:59; Status UNV Potassium Chloride/Water 100 ml @ 100 mls/hr Q1H IV Last administered on 03/26/19at 22:03; Start 03/26/19 at 16:00; Stop 03/26/19 at 19:59; Status DC Potassium Chloride (Klor-Con) 40 meq 1X ONCE PO Last administered on 03/27/19at 15:48; Start 03/27/19 at 12:15; Stop 03/27/19 at 12:16; Status DC Active Scripts Active Vitals/I & O Vital Sign - Last 24 Hours 03/28/19 03/28/19 03/28/19 03/28/19 10:57 14:48 19:49 19:52 Temp 98.2 98.4 98.7 98.2 98.4 98.7 Pulse 87 88 83 Resp 18 18 20 B/P (MAP) 155/97 (116) 137/86 (103) 147/97 (114) Pulse Ox 97 99 99 O2 Delivery Room Air Room Air Room Air Room Air 03/28/19 03/29/19 03/29/19 23:48 03:46 07:00 Temp 98.6 98.2 98.0 98.6 98.2 98.0 Pulse 81 77 83 Resp 20 20 20 B/P (MAP) 167/104 (125) 167/92 (117) 159/105 (123) Pulse Ox 97 97 98 O2 Delivery Room Air Room Air Room Air Intake and Output 03/28/19 03/28/19 03/29/19 15:00 23:00 07:00 Intake Total 360 ml 240 ml 250 ml Output Total 30 ml Balance 360 ml 210 ml 250 ml CARMEN TAYLOR MD Mar 29, 2019 09:56
--- NOTE | 2019-03-29 10:17 | PDOC ---
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 c/w severe abuse seizure last night 03/25 NEUROLOGY CONSULTED, on withdrawal precautions, ct head pending 03/26 hx Bilateral temporomandibular joint dislocations, 10/08 post seizure Accel HTN - started on amlodipine Sinus tachy Alcoholism - levels 208 Microcytic anemia - Differential includes colon or gastric cancer, Henry's, peptic ulcer disease,irritable bowel disease, arteriovenous malformations and/or bone marrow suppression with alcohol 37 min pt exam, chart review, > 50% of time spent with exam, chart review, pt care coordination History of Present Illness History of Present Illness Mr Lozada is a 53 yo w/ PMHx ETOH abuse, HTN, anxiety, GERD, admitted on 03/20/2019 for elective resection of a gastrointestinal stromal tumor. He underwent the surgery without any complication by Dr. Houston. Following the surgery, he started to go through alcohol withdrawal. His last drink was a day prior to admission. He states he does drink vodka. He will go through a half gallon handle of vodka about every 3 days. He has experienced alcohol withdrawal symptoms previously. He recalls there have been 3 or 4 occasions when he has gone through alcohol withdrawal and suffered a seizure. He did suffer a seizure at [facility] on . He had been undergoing alcohol withdrawal protocol and was improving and the medicines were reduced and then he started to go through withdrawal again. He does not complain of any headache or pain. According to nurse, he had been agitated, confused and trying to climb out of bed. Consults: Pulm, Neuro, General surgery 2/3: Advanced diet. hypokalemia on replacement iv. He is much more alert today. bedside. He is asking for liquid diet today. Abdominal pain minimal. 2/4: Tolerating diet advancement well. He has minimal pain, no further ETOH withdrawal sx. He is asking when he can go home. Today he is feeling well, tolerated diet well. He wants to quit ETOH, has asked for cessation help, given naltrexone script. Plan: dw IS Home with . ETOH cessation Pathology - A. Segment of stomach, partial gastrectomy: - Gastrointestinal stromal tumor, low-grade, mixed epitheloid and spindle cell type, measuring 5.5 cm in greatest dimension. - Margins of resection negative for tumor. - Mild chronic inflammation of gastric mucosa. . B. Liver, wedge biopsy: - Abundant steatosis - negative for malignancy Vitals Vitals Vital Signs Date Time Temp Pulse Resp B/P (MAP) Pulse Ox O2 Delivery O2 Flow Rate FiO2 03/29/19 07:00 98.0 83 20 159/105 (123) 98 Room Air 98.0 Physical Exam General: Alert, Cooperative Heart: Regular rate, No murmurs Lungs: Clear Abdomen: Soft, Other (drain serous ) Extremities: No cyanosis, No edema Skin: No rashes, No significant lesion Labs LABS Laboratory Tests Test 03/29/19 03:40 White Blood Count 8.2 x10^3/uL (4.0-11.0) Red Blood Count 4.21 x10^6/uL (4.30-5.70) Hemoglobin 7.9 g/dL (13.0-17.5) Hematocrit 27.1 % (39.0-53.0) Mean Corpuscular Volume 64 fL (79-100) Mean Corpuscular Hemoglobin 19 pg (25-35) Mean Corpuscular Hemoglobin Concent 29 g/dL (31-37) Red Cell Distribution Width 24.7 % (11.5-14.5) Platelet Count 354 x10^3/uL (140-400) Neutrophils (%) (Auto) 49 % (31-73) Lymphocytes (%) (Auto) 29 % (24-48) Monocytes (%) (Auto) 17 % (0-9) Eosinophils (%) (Auto) 2 % (0-3) Basophils (%) (Auto) 2 % (0-3) Neutrophils # (Auto) 4.0 x10^3/uL (1.8-7.7) Lymphocytes # (Auto) 2.4 x10^3/uL (1.0-4.8) Monocytes # (Auto) 1.4 x10^3/uL (0.0-1.1) Eosinophils # (Auto) 0.2 x10^3/uL (0.0-0.7) Basophils # (Auto) 0.2 x10^3/uL (0.0-0.2) Sodium Level 138 mmol/L (136-145) Potassium Level 3.5 mmol/L (3.5-5.1) Chloride Level 106 mmol/L (98-107) Carbon Dioxide Level 22 mmol/L (21-32) Anion Gap 10 (6-14) Blood Urea Nitrogen 7 mg/dL (8-26) Creatinine 0.8 mg/dL (0.7-1.3) Estimated GFR (Cockcroft-Gault) 100.4 Glucose Level 85 mg/dL (70-99) Calcium Level 8.4 mg/dL (8.5-10.1) Comment Review of Relevant I have reviewed the following items lana (where applicable) has been applied. Labs Laboratory Tests Test 03/28/19 04:15 03/29/19 03:40 White Blood Count 8.8 x10^3/uL (4.0-11.0) 8.2 x10^3/uL (4.0-11.0) Red Blood Count 4.72 x10^6/uL (4.30-5.70) 4.21 x10^6/uL (4.30-5.70) Hemoglobin 8.6 g/dL (13.0-17.5) 7.9 g/dL (13.0-17.5) Hematocrit 30.5 % (39.0-53.0) 27.1 % (39.0-53.0) Mean Corpuscular Volume 65 fL (79-100) 64 fL (79-100) Mean Corpuscular Hemoglobin 18 pg (25-35) 19 pg (25-35) Mean Corpuscular Hemoglobin Concent 28 g/dL (31-37) 29 g/dL (31-37) Red Cell Distribution Width 25.5 % (11.5-14.5) 24.7 % (11.5-14.5) Platelet Count 322 x10^3/uL (140-400) 354 x10^3/uL (140-400) Neutrophils (%) (Auto) 49 % (31-73) 49 % (31-73) Lymphocytes (%) (Auto) 28 % (24-48) 29 % (24-48) Monocytes (%) (Auto) 20 % (0-9) 17 % (0-9) Eosinophils (%) (Auto) 3 % (0-3) 2 % (0-3) Basophils (%) (Auto) 1 % (0-3) 2 % (0-3) Neutrophils # (Auto) 4.3 x10^3/uL (1.8-7.7) 4.0 x10^3/uL (1.8-7.7) Lymphocytes # (Auto) 2.4 x10^3/uL (1.0-4.8) 2.4 x10^3/uL (1.0-4.8) Monocytes # (Auto) 1.7 x10^3/uL (0.0-1.1) 1.4 x10^3/uL (0.0-1.1) Eosinophils # (Auto) 0.2 x10^3/uL (0.0-0.7) 0.2 x10^3/uL (0.0-0.7) Basophils # (Auto) 0.1 x10^3/uL (0.0-0.2) 0.2 x10^3/uL (0.0-0.2) Sodium Level 140 mmol/L (136-145) 138 mmol/L (136-145) Potassium Level 3.8 mmol/L (3.5-5.1) 3.5 mmol/L (3.5-5.1) Chloride Level 106 mmol/L (98-107) 106 mmol/L (98-107) Carbon Dioxide Level 21 mmol/L (21-32) 22 mmol/L (21-32) Anion Gap 13 (6-14) 10 (6-14) Blood Urea Nitrogen 9 mg/dL (8-26) 7 mg/dL (8-26) Creatinine 0.9 mg/dL (0.7-1.3) 0.8 mg/dL (0.7-1.3) Estimated GFR (Cockcroft-Gault) 87.6 100.4 Glucose Level 95 mg/dL (70-99) 85 mg/dL (70-99) Calcium Level 8.5 mg/dL (8.5-10.1) 8.4 mg/dL (8.5-10.1) Laboratory Tests Test 03/29/19 03:40 White Blood Count 8.2 x10^3/uL (4.0-11.0) Red Blood Count 4.21 x10^6/uL (4.30-5.70) Hemoglobin 7.9 g/dL (13.0-17.5) Hematocrit 27.1 % (39.0-53.0) Mean Corpuscular Volume 64 fL (79-100) Mean Corpuscular Hemoglobin 19 pg (25-35) Mean Corpuscular Hemoglobin Concent 29 g/dL (31-37) Red Cell Distribution Width 24.7 % (11.5-14.5) Platelet Count 354 x10^3/uL (140-400) Neutrophils (%) (Auto) 49 % (31-73) Lymphocytes (%) (Auto) 29 % (24-48) Monocytes (%) (Auto) 17 % (0-9) Eosinophils (%) (Auto) 2 % (0-3) Basophils (%) (Auto) 2 % (0-3) Neutrophils # (Auto) 4.0 x10^3/uL (1.8-7.7) Lymphocytes # (Auto) 2.4 x10^3/uL (1.0-4.8) Monocytes # (Auto) 1.4 x10^3/uL (0.0-1.1) Eosinophils # (Auto) 0.2 x10^3/uL (0.0-0.7) Basophils # (Auto) 0.2 x10^3/uL (0.0-0.2) Sodium Level 138 mmol/L (136-145) Potassium Level 3.5 mmol/L (3.5-5.1) Chloride Level 106 mmol/L (98-107) Carbon Dioxide Level 22 mmol/L (21-32) Anion Gap 10 (6-14) Blood Urea Nitrogen 7 mg/dL (8-26) Creatinine 0.8 mg/dL (0.7-1.3) Estimated GFR (Cockcroft-Gault) 100.4 Glucose Level 85 mg/dL (70-99) Calcium Level 8.4 mg/dL (8.5-10.1) Medications Current Medications Ondansetron HCl (Zofran) 4 mg PRN Q6HRS PRN IV NAUSEA/VOMITING; Start 03/20/19 at 07:00; Stop 03/21/19 at 06:59; Status DC Fentanyl Citrate (Fentanyl 2ml Vial) 25 mcg PRN Q5MIN PRN IV MILD PAIN 1-3; Start 03/20/19 at 07:00; Stop 03/21/19 at 06:59; Status DC Fentanyl Citrate (Fentanyl 2ml Vial) 50 mcg PRN Q5MIN PRN IV MODERATE TO SEVERE PAIN Last administered on 03/20/19at 16:48; Start 03/20/19 at 07:00; Stop 03/21/19 at 06:59; Status DC Morphine Sulfate (Morphine Sulfate) 1 mg PRN Q10MIN PRN IV SEVERE PAIN 7-10 Last administered on 03/20/19at 15:04; Start 03/20/19 at 07:00; Stop 03/21/19 at 06:59; Status DC Ringer's Solution 1,000 ml @ 30 mls/hr Q24H IV Last administered on 03/20/19at 10:15; Start 03/20/19 at 07:00; Stop 03/20/19 at 18:59; Status DC Lidocaine HCl (Xylocaine-Mpf 1% 2ml Vial) 2 ml PRN 1X PRN ID PRIOR TO IV START; Start 03/20/19 at 07:00; Stop 03/21/19 at 06:59; Status DC Hydromorphone HCl (Dilaudid) 0.5 mg PRN Q10MIN PRN IV SEV PAIN, Second choice; Start 03/20/19 at 07:00; Stop 03/21/19 at 06:59; Status DC Prochlorperazine Edisylate (Compazine) 5 mg PACU PRN PRN IV NAUSEA, MRX1 Last administered on 03/20/19at 15:03; Start 03/20/19 at 07:00; Stop 03/21/19 at 06:59; Status DC Cefoxitin Sodium (Mefoxin) 2 gm PREOP PRN PRN IVP PREOP Last administered on 03/20/19at 11:02; Start 03/20/19 at 06:00; Stop 03/22/19 at 11:21; Status DC Propofol 20 ml @ As Directed STK-MED ONCE IV ; Start 03/20/19 at 09:21; Stop 03/20/19 at 09:22; Status DC Lidocaine HCl (Lidocaine Pf 2% Vial) 5 ml STK-MED ONCE .ROUTE ; Start 03/20/19 at 09:21; Stop 03/20/19 at 09:22; Status DC Ondansetron HCl (Zofran) 4 mg STK-MED ONCE .ROUTE ; Start 03/20/19 at 09:21; Stop 03/20/19 at 09:22; Status DC Dexamethasone Sodium Phosphate (Decadron) 4 mg STK-MED ONCE .ROUTE ; Start 03/20/19 at 09:21; Stop 03/20/19 at 09:22; Status DC Rocuronium Gregory (Zemuron) 50 mg STK-MED ONCE .ROUTE ; Start 03/20/19 at 09:21; Stop 03/20/19 at 09:22; Status DC Fentanyl Citrate (Fentanyl 2ml Vial) 100 mcg STK-MED ONCE .ROUTE ; Start 03/20/19 at 09:22; Stop 03/20/19 at 09:22; Status DC Midazolam HCl (Versed) 2 mg STK-MED ONCE .ROUTE ; Start 03/20/19 at 09:22; Stop 03/20/19 at 09:22; Status DC Sevoflurane (Ultane) 60 ml STK-MED ONCE IH ; Start 03/20/19 at 09:43; Stop 03/20/19 at 09:43; Status DC Bupivacaine HCl/ Epinephrine Bitart (Sensorcain-Epi 0.5%-1:[id number] Mpf) 30 ml STK-MED ONCE .ROUTE Last administered on 03/20/19at 11:38; Start 03/20/19 at 10:14; Stop 03/20/19 at 10:15; Status DC Dexamethasone Sodium Phosphate (Decadron) 4 mg STK-MED ONCE .ROUTE ; Start 03/20/19 at 11:18; Stop 03/20/19 at 11:19; Status DC Fentanyl Citrate (Fentanyl 2ml Vial) 100 mcg STK-MED ONCE .ROUTE ; Start 03/20/19 at 11:38; Stop 03/20/19 at 11:39; Status DC Cellulose (Surgicel Hemostat 4x8) 1 each STK-MED ONCE .ROUTE Last administered on 03/20/19at 12:24; Start 03/20/19 at 12:24; Stop 03/20/19 at 12:24; Status DC Phenylephrine HCl (PHENYLEPHRINE in 0.9% NACL PF) 1 mg STK-MED ONCE IV ; Start 03/20/19 at 12:25; Stop 03/20/19 at 12:25; Status DC Ephedrine Sulfate (ePHEDrine PF IN SALINE SYRINGE) 50 mg STK-MED ONCE IV ; Start 03/20/19 at 12:25; Stop 03/20/19 at 12:25; Status DC Neostigmine Gregory (Neostigmine Methylsulfate) 5 mg STK-MED ONCE .ROUTE ; Start 03/20/19 at 12:25; Stop 03/20/19 at 12:25; Status DC Glycopyrrolate (Robinul) 1 mg STK-MED ONCE .ROUTE ; Start 03/20/19 at 12:25; Stop 03/20/19 at 12:26; Status DC Rocuronium Gregory (Zemuron) 50 mg STK-MED ONCE .ROUTE ; Start 03/20/19 at 12:33; Stop 03/20/19 at 12:33; Status DC Cefoxitin Sodium (Mefoxin) 2 gm 1X ONCE IVP Last administered on 03/20/19at 13:02; Start 03/20/19 at 12:45; Stop 03/20/19 at 12:46; Status DC Albumin Human 500 ml @ As Directed STK-MED ONCE IV ; Start 03/20/19 at 13:05; Stop 03/20/19 at 13:05; Status DC Propofol 20 ml @ As Directed STK-MED ONCE IV ; Start 03/20/19 at 14:06; Stop 03/20/19 at 14:06; Status DC Desflurane (Suprane) 90 ml STK-MED ONCE IH ; Start 03/20/19 at 14:11; Stop 03/20/19 at 14:11; Status DC Famotidine (Pepcid Vial) 20 mg BID IVP Last administered on 03/29/19at 08:10; Start 03/20/19 at 21:00 Enoxaparin Sodium (Lovenox 40mg Syringe) 40 mg Q24H SQ Last administered on 03/29/19at 08:11; Start 03/21/19 at 09:00 Sodium Chloride (Normal Saline Flush) 3 ml QSHIFT PRN IV AFTER MEDS AND BLOOD DRAWS; Start 03/20/19 at 14:30 Ringer's Solution 1,000 ml @ 100 mls/hr Q10H IV Last administered on 03/23/19at 16:56; Start 03/20/19 at 14:27; Stop 03/24/19 at 08:56; Status DC Naloxone HCl (Narcan) 0.4 mg PRN Q2MIN PRN IV SEE INSTRUCTIONS; Start 03/20/19 at 14:30 Sodium Chloride 1,000 ml @ 25 mls/hr Q24H IV Last administered on 03/25/19at 14:27; Start 03/20/19 at 14:27 Morphine Sulfate 30 ml @ 0 mls/hr CONT PRN PRN IV PER PROTOCOL Last administered on 03/25/19at 13:54; Start 03/20/19 at 14:30 Ondansetron HCl (Zofran) 4 mg PRN Q6HRS PRN IVP NAUESA, 1ST CHOICE Last administered on 03/26/19at 13:54; Start 03/20/19 at 14:30 Lorazepam (Ativan Inj) 2 mg PRN Q1HR PRN IV For CIWA 8-14 Last administered on 03/26/19at 05:00; Start 03/20/19 at 20:00 Lorazepam (Ativan Inj) 4 mg PRN Q1HR PRN IV For CIWA 15 or greater Last administered on 03/26/19at 09:16; Start 03/20/19 at 20:00 Metoprolol Tartrate (Lopressor Vial) 5 mg PRN Q6HRS PRN IVP HYPERTENSION Last administered on 03/23/19at 04:38; Start 03/20/19 at 23:30; Stop 03/24/19 at 08:56; Status DC Dexmedetomidine HCl 400 mcg/ Sodium Chloride 100 ml @ 0 mls/hr CONT PRN IV AGITATION Last administered on 03/23/19at 05:08; Start 03/21/19 at 23:15; Stop 03/24/19 at 03:59; Status DC Sodium Chloride 500 ml @ 500 mls/hr 1X PRN PRN IV ANXIETY / AGITATION; Start 03/21/19 at 23:15; Status Cancel Atropine Sulfate (ATROPINE 0.5mg SYRINGE) 0.5 mg PRN Q5MIN PRN IV SEE COMMENTS; Start 03/21/19 at 23:15 Haloperidol Lactate (Haldol Inj) 5 mg PRN Q4HRS PRN IVP Hallucinatns,Confusn,De lirium Last administered on 03/26/19at 15:38; Start 03/22/19 at 11:30 Diphenhydramine HCl (Benadryl) 25 mg PRN Q15MIN PRN IVP EPS symptoms 2'Haldol admin Last administered on 03/23/19at 03:58; Start 03/22/19 at 11:30 Multivitamins 10 ml/Thiamine HCl 100 mg/Folic Acid 1 mg/Sodium Chloride 1,011.2 ml @ 100 mls/ hr DAILY IV Last administered on 03/26/19at 09:15; Start 03/22/19 at 21:00; Stop 03/26/19 at 19:07; Status DC Thiamine HCl 100 mg/Dextrose 51 ml @ 100 mls/hr DAILY IV ; Start 03/22/19 at 21:00; Stop 03/26/19 at 09:31; Status UNV Ziprasidone (Geodon Im) 10 mg PRN Q6HRS PRN IM Agitation; Start 03/23/19 at 05:00 Metoprolol Tartrate (Lopressor Vial) 10 mg PRN Q6HRS PRN IVP HYPERTENSION; Start 03/24/19 at 09:00; Stop 03/24/19 at 12:56; Status DC Potassium Chloride/Dextrose/ Sod Cl 1,000 ml @ 85 mls/hr [id number] IV Last administered on 03/25/19at 09:07; Start 03/24/19 at 09:00; Stop 03/25/19 at 15:59; Status DC Labetalol HCl (Normodyne Iv Push) 10 mg PRN Q2HR PRN IVP HYPERTENSION Last administered on 03/27/19at 06:04; Start 03/24/19 at 13:00 Labetalol HCl (Normodyne Iv Push) 20 mg 1X ONCE IVP Last administered on 03/24/19at 13:00; Start 03/24/19 at 13:00; Stop 03/24/19 at 13:01; Status DC Amino Acids/ Electrolytes/ Dextrose 1,000 ml @ 80 mls/hr [id number] IV Last administered on 03/26/19at 18:37; Start 03/25/19 at 16:00; Stop 03/27/19 at 17:06; Status DC Potassium Chloride/Water 100 ml @ 100 mls/hr Q1H IV ; Start 03/25/19 at 18:45; Stop 03/25/19 at 20:44; Status UNV Potassium Chloride/Water 100 ml @ 100 mls/hr Q1H IV Last administered on 03/26/19at 00:30; Start 03/25/19 at 19:00; Stop 03/25/19 at 22:59; Status DC Thiamine HCl 100 mg/Dextrose 51 ml @ 100 mls/hr DAILY IV Last administered on 03/28/19at 08:56; Start 03/27/19 at 09:00; Stop 03/31/19 at 09:31 Potassium Chloride/Water 100 ml @ 100 mls/hr Q1H IV ; Start 03/26/19 at 16:00; Stop 03/26/19 at 17:59; Status UNV Potassium Chloride/Water 100 ml @ 100 mls/hr Q1H IV Last administered on 03/26/19at 22:03; Start 03/26/19 at 16:00; Stop 03/26/19 at 19:59; Status DC Potassium Chloride (Klor-Con) 40 meq 1X ONCE PO Last administered on 03/27/19at 15:48; Start 03/27/19 at 12:15; Stop 03/27/19 at 12:16; Status DC Active Scripts Active Vitals/I & O Vital Sign - Last 24 Hours 03/28/19 03/28/19 03/28/19 03/28/19 10:57 14:48 19:49 19:52 Temp 98.2 98.4 98.7 98.2 98.4 98.7 Pulse 87 88 83 Resp 18 18 20 B/P (MAP) 155/97 (116) 137/86 (103) 147/97 (114) Pulse Ox 97 99 99 O2 Delivery Room Air Room Air Room Air Room Air 03/28/19 03/29/19 03/29/19 23:48 03:46 07:00 Temp 98.6 98.2 98.0 98.6 98.2 98.0 Pulse 81 77 83 Resp 20 20 20 B/P (MAP) 167/104 (125) 167/92 (117) 159/105 (123) Pulse Ox 97 97 98 O2 Delivery Room Air Room Air Room Air Intake and Output 03/28/19 03/28/19 03/29/19 15:00 23:00 07:00 Intake Total 360 ml 240 ml 250 ml Output Total 30 ml Balance 360 ml 210 ml 250 ml RIFFEL,CHRISTOPHER S MD Mar 29, 2019 10:17
[2019-03-29 11:00] VITALS: BP 134/78
[2019-03-29] MEDS: THIAMINE INJ 100 MG in IV DEXTROSE 5% 50 ML IV SCH (11:02)
--- NOTE | 2019-03-29 11:28 | PDOC ---
PULMONARY PROGRESS NOTES Subjective Denies SOA, or increased cough reports overnight seizure Vitals Vital Signs Date Time Temp Pulse Resp B/P (MAP) Pulse Ox O2 Delivery O2 Flow Rate FiO2 03/29/19 07:00 98.0 83 20 159/105 (123) 98 Room Air 98.0 ROS: No Nausea, No Chest Pain, No Abdominal Pain, No Increase Cough General: Alert, Oriented X4 Lungs: Clear Cardiovascular: S1, S2 Abdomen: Soft Neuro Exam: Alert Extremities: No Edema Skin: Warm, Dry Labs Laboratory Tests Test 03/28/19 04:15 03/29/19 03:40 White Blood Count 8.8 x10^3/uL (4.0-11.0) 8.2 x10^3/uL (4.0-11.0) Red Blood Count 4.72 x10^6/uL (4.30-5.70) 4.21 x10^6/uL (4.30-5.70) Hemoglobin 8.6 g/dL (13.0-17.5) 7.9 g/dL (13.0-17.5) Hematocrit 30.5 % (39.0-53.0) 27.1 % (39.0-53.0) Mean Corpuscular Volume 65 fL (79-100) 64 fL (79-100) Mean Corpuscular Hemoglobin 18 pg (25-35) 19 pg (25-35) Mean Corpuscular Hemoglobin Concent 28 g/dL (31-37) 29 g/dL (31-37) Red Cell Distribution Width 25.5 % (11.5-14.5) 24.7 % (11.5-14.5) Platelet Count 322 x10^3/uL (140-400) 354 x10^3/uL (140-400) Neutrophils (%) (Auto) 49 % (31-73) 49 % (31-73) Lymphocytes (%) (Auto) 28 % (24-48) 29 % (24-48) Monocytes (%) (Auto) 20 % (0-9) 17 % (0-9) Eosinophils (%) (Auto) 3 % (0-3) 2 % (0-3) Basophils (%) (Auto) 1 % (0-3) 2 % (0-3) Neutrophils # (Auto) 4.3 x10^3/uL (1.8-7.7) 4.0 x10^3/uL (1.8-7.7) Lymphocytes # (Auto) 2.4 x10^3/uL (1.0-4.8) 2.4 x10^3/uL (1.0-4.8) Monocytes # (Auto) 1.7 x10^3/uL (0.0-1.1) 1.4 x10^3/uL (0.0-1.1) Eosinophils # (Auto) 0.2 x10^3/uL (0.0-0.7) 0.2 x10^3/uL (0.0-0.7) Basophils # (Auto) 0.1 x10^3/uL (0.0-0.2) 0.2 x10^3/uL (0.0-0.2) Sodium Level 140 mmol/L (136-145) 138 mmol/L (136-145) Potassium Level 3.8 mmol/L (3.5-5.1) 3.5 mmol/L (3.5-5.1) Chloride Level 106 mmol/L (98-107) 106 mmol/L (98-107) Carbon Dioxide Level 21 mmol/L (21-32) 22 mmol/L (21-32) Anion Gap 13 (6-14) 10 (6-14) Blood Urea Nitrogen 9 mg/dL (8-26) 7 mg/dL (8-26) Creatinine 0.9 mg/dL (0.7-1.3) 0.8 mg/dL (0.7-1.3) Estimated GFR (Cockcroft-Gault) 87.6 100.4 Glucose Level 95 mg/dL (70-99) 85 mg/dL (70-99) Calcium Level 8.5 mg/dL (8.5-10.1) 8.4 mg/dL (8.5-10.1) Laboratory Tests Test 03/29/19 03:40 White Blood Count 8.2 x10^3/uL (4.0-11.0) Red Blood Count 4.21 x10^6/uL (4.30-5.70) Hemoglobin 7.9 g/dL (13.0-17.5) Hematocrit 27.1 % (39.0-53.0) Mean Corpuscular Volume 64 fL (79-100) Mean Corpuscular Hemoglobin 19 pg (25-35) Mean Corpuscular Hemoglobin Concent 29 g/dL (31-37) Red Cell Distribution Width 24.7 % (11.5-14.5) Platelet Count 354 x10^3/uL (140-400) Neutrophils (%) (Auto) 49 % (31-73) Lymphocytes (%) (Auto) 29 % (24-48) Monocytes (%) (Auto) 17 % (0-9) Eosinophils (%) (Auto) 2 % (0-3) Basophils (%) (Auto) 2 % (0-3) Neutrophils # (Auto) 4.0 x10^3/uL (1.8-7.7) Lymphocytes # (Auto) 2.4 x10^3/uL (1.0-4.8) Monocytes # (Auto) 1.4 x10^3/uL (0.0-1.1) Eosinophils # (Auto) 0.2 x10^3/uL (0.0-0.7) Basophils # (Auto) 0.2 x10^3/uL (0.0-0.2) Sodium Level 138 mmol/L (136-145) Potassium Level 3.5 mmol/L (3.5-5.1) Chloride Level 106 mmol/L (98-107) Carbon Dioxide Level 22 mmol/L (21-32) Anion Gap 10 (6-14) Blood Urea Nitrogen 7 mg/dL (8-26) Creatinine 0.8 mg/dL (0.7-1.3) Estimated GFR (Cockcroft-Gault) 100.4 Glucose Level 85 mg/dL (70-99) Calcium Level 8.4 mg/dL (8.5-10.1) Medications Active Scripts Medications Dose Route/Sig Max Daily Dose Days Date Category Impression . IMPRESSION: 1. Expected hypoxemia after surgical intervention related to possible ate lectasis. ON RA NOW 2. Acute respiratory failure secondary to above. 3. Status post laparoscopic partial gastrectomy and liver biopsy. 4. Alcoholism. 5. History of seizure disorder. 6. DT 7. MET ENCE POA 8.Seizures Plan . STABLE PULMONARY SOLITARIO FOR DC WILL S/O CONTINUE IS DENISE SORTO MD Mar 29, 2019 11:28
--- NOTE | 2019-03-29 12:20 | PDOC ---
SURGICAL PROGRESS NOTE Subjective Pt without c/o, stephanie diet Vital Signs Vital Signs Date Time Temp Pulse Resp B/P (MAP) Pulse Ox O2 Delivery O2 Flow Rate FiO2 03/29/19 11:00 98.6 92 20 134/78 (96) 98 Room Air 98.6 03/29/19 08:00 2.0 I&O Intake and Output 03/29/19 07:00 Intake Total 850 ml Output Total 30 ml Balance 820 ml Intake Oral 850 ml Other 30 ml General: Alert, Oriented X3, Cooperative, No acute distress Abdomen: Soft, No tenderness, Other (incisions c/d/i, KEYA serous) Labs Laboratory Tests Test 03/28/19 04:15 03/29/19 03:40 White Blood Count 8.8 x10^3/uL (4.0-11.0) 8.2 x10^3/uL (4.0-11.0) Red Blood Count 4.72 x10^6/uL (4.30-5.70) 4.21 x10^6/uL (4.30-5.70) Hemoglobin 8.6 g/dL (13.0-17.5) 7.9 g/dL (13.0-17.5) Hematocrit 30.5 % (39.0-53.0) 27.1 % (39.0-53.0) Mean Corpuscular Volume 65 fL (79-100) 64 fL (79-100) Mean Corpuscular Hemoglobin 18 pg (25-35) 19 pg (25-35) Mean Corpuscular Hemoglobin Concent 28 g/dL (31-37) 29 g/dL (31-37) Red Cell Distribution Width 25.5 % (11.5-14.5) 24.7 % (11.5-14.5) Platelet Count 322 x10^3/uL (140-400) 354 x10^3/uL (140-400) Neutrophils (%) (Auto) 49 % (31-73) 49 % (31-73) Lymphocytes (%) (Auto) 28 % (24-48) 29 % (24-48) Monocytes (%) (Auto) 20 % (0-9) 17 % (0-9) Eosinophils (%) (Auto) 3 % (0-3) 2 % (0-3) Basophils (%) (Auto) 1 % (0-3) 2 % (0-3) Neutrophils # (Auto) 4.3 x10^3/uL (1.8-7.7) 4.0 x10^3/uL (1.8-7.7) Lymphocytes # (Auto) 2.4 x10^3/uL (1.0-4.8) 2.4 x10^3/uL (1.0-4.8) Monocytes # (Auto) 1.7 x10^3/uL (0.0-1.1) 1.4 x10^3/uL (0.0-1.1) Eosinophils # (Auto) 0.2 x10^3/uL (0.0-0.7) 0.2 x10^3/uL (0.0-0.7) Basophils # (Auto) 0.1 x10^3/uL (0.0-0.2) 0.2 x10^3/uL (0.0-0.2) Sodium Level 140 mmol/L (136-145) 138 mmol/L (136-145) Potassium Level 3.8 mmol/L (3.5-5.1) 3.5 mmol/L (3.5-5.1) Chloride Level 106 mmol/L (98-107) 106 mmol/L (98-107) Carbon Dioxide Level 21 mmol/L (21-32) 22 mmol/L (21-32) Anion Gap 13 (6-14) 10 (6-14) Blood Urea Nitrogen 9 mg/dL (8-26) 7 mg/dL (8-26) Creatinine 0.9 mg/dL (0.7-1.3) 0.8 mg/dL (0.7-1.3) Estimated GFR (Cockcroft-Gault) 87.6 100.4 Glucose Level 95 mg/dL (70-99) 85 mg/dL (70-99) Calcium Level 8.5 mg/dL (8.5-10.1) 8.4 mg/dL (8.5-10.1) Laboratory Tests Test 03/29/19 03:40 White Blood Count 8.2 x10^3/uL (4.0-11.0) Red Blood Count 4.21 x10^6/uL (4.30-5.70) Hemoglobin 7.9 g/dL (13.0-17.5) Hematocrit 27.1 % (39.0-53.0) Mean Corpuscular Volume 64 fL (79-100) Mean Corpuscular Hemoglobin 19 pg (25-35) Mean Corpuscular Hemoglobin Concent 29 g/dL (31-37) Red Cell Distribution Width 24.7 % (11.5-14.5) Platelet Count 354 x10^3/uL (140-400) Neutrophils (%) (Auto) 49 % (31-73) Lymphocytes (%) (Auto) 29 % (24-48) Monocytes (%) (Auto) 17 % (0-9) Eosinophils (%) (Auto) 2 % (0-3) Basophils (%) (Auto) 2 % (0-3) Neutrophils # (Auto) 4.0 x10^3/uL (1.8-7.7) Lymphocytes # (Auto) 2.4 x10^3/uL (1.0-4.8) Monocytes # (Auto) 1.4 x10^3/uL (0.0-1.1) Eosinophils # (Auto) 0.2 x10^3/uL (0.0-0.7) Basophils # (Auto) 0.2 x10^3/uL (0.0-0.2) Sodium Level 138 mmol/L (136-145) Potassium Level 3.5 mmol/L (3.5-5.1) Chloride Level 106 mmol/L (98-107) Carbon Dioxide Level 22 mmol/L (21-32) Anion Gap 10 (6-14) Blood Urea Nitrogen 7 mg/dL (8-26) Creatinine 0.8 mg/dL (0.7-1.3) Estimated GFR (Cockcroft-Gault) 100.4 Glucose Level 85 mg/dL (70-99) Calcium Level 8.4 mg/dL (8.5-10.1) Problem List s/p lap partial gastrectomy OK to d/c home appreciate consultants help will d/c drain. SOCRATES VALVERDE MD Mar 29, 2019 12:20
[2019-03-29] MEDS ORDERED: NALT50TA PO (12:57)
--- NOTE | 2019-03-29 13:04 | PDOC3 ---
Discharge Summary Visit Information Date of Admission: Mar 20, 2019 Date of Discharge: Mar 29, 2019 Admitting Diagnosis: GIST tumor Final Diagnosis Alcohol withdrawal seizures Brief Hospital Course Allergies Allergies Coded Allergies Type Severity Reaction Last Updated Verified No Known Drug Allergies 03/20/19 No Vital Signs Vital Signs Date Time Temp Pulse Resp B/P (MAP) Pulse Ox O2 Delivery O2 Flow Rate FiO2 03/29/19 11:00 98.6 92 20 134/78 (96) 98 Room Air 98.6 03/29/19 08:00 2.0 Lab Results Laboratory Tests Test 03/28/19 04:15 03/29/19 03:40 White Blood Count 8.8 x10^3/uL (4.0-11.0) 8.2 x10^3/uL (4.0-11.0) Red Blood Count 4.72 x10^6/uL (4.30-5.70) 4.21 x10^6/uL (4.30-5.70) Hemoglobin 8.6 g/dL (13.0-17.5) 7.9 g/dL (13.0-17.5) Hematocrit 30.5 % (39.0-53.0) 27.1 % (39.0-53.0) Mean Corpuscular Volume 65 fL (79-100) 64 fL (79-100) Mean Corpuscular Hemoglobin 18 pg (25-35) 19 pg (25-35) Mean Corpuscular Hemoglobin Concent 28 g/dL (31-37) 29 g/dL (31-37) Red Cell Distribution Width 25.5 % (11.5-14.5) 24.7 % (11.5-14.5) Platelet Count 322 x10^3/uL (140-400) 354 x10^3/uL (140-400) Neutrophils (%) (Auto) 49 % (31-73) 49 % (31-73) Lymphocytes (%) (Auto) 28 % (24-48) 29 % (24-48) Monocytes (%) (Auto) 20 % (0-9) 17 % (0-9) Eosinophils (%) (Auto) 3 % (0-3) 2 % (0-3) Basophils (%) (Auto) 1 % (0-3) 2 % (0-3) Neutrophils # (Auto) 4.3 x10^3/uL (1.8-7.7) 4.0 x10^3/uL (1.8-7.7) Lymphocytes # (Auto) 2.4 x10^3/uL (1.0-4.8) 2.4 x10^3/uL (1.0-4.8) Monocytes # (Auto) 1.7 x10^3/uL (0.0-1.1) 1.4 x10^3/uL (0.0-1.1) Eosinophils # (Auto) 0.2 x10^3/uL (0.0-0.7) 0.2 x10^3/uL (0.0-0.7) Basophils # (Auto) 0.1 x10^3/uL (0.0-0.2) 0.2 x10^3/uL (0.0-0.2) Sodium Level 140 mmol/L (136-145) 138 mmol/L (136-145) Potassium Level 3.8 mmol/L (3.5-5.1) 3.5 mmol/L (3.5-5.1) Chloride Level 106 mmol/L (98-107) 106 mmol/L (98-107) Carbon Dioxide Level 21 mmol/L (21-32) 22 mmol/L (21-32) Anion Gap 13 (6-14) 10 (6-14) Blood Urea Nitrogen 9 mg/dL (8-26) 7 mg/dL (8-26) Creatinine 0.9 mg/dL (0.7-1.3) 0.8 mg/dL (0.7-1.3) Estimated GFR (Cockcroft-Gault) 87.6 100.4 Glucose Level 95 mg/dL (70-99) 85 mg/dL (70-99) Calcium Level 8.5 mg/dL (8.5-10.1) 8.4 mg/dL (8.5-10.1) Laboratory Tests Test 03/29/19 03:40 White Blood Count 8.2 x10^3/uL (4.0-11.0) Red Blood Count 4.21 x10^6/uL (4.30-5.70) Hemoglobin 7.9 g/dL (13.0-17.5) Hematocrit 27.1 % (39.0-53.0) Mean Corpuscular Volume 64 fL (79-100) Mean Corpuscular Hemoglobin 19 pg (25-35) Mean Corpuscular Hemoglobin Concent 29 g/dL (31-37) Red Cell Distribution Width 24.7 % (11.5-14.5) Platelet Count 354 x10^3/uL (140-400) Neutrophils (%) (Auto) 49 % (31-73) Lymphocytes (%) (Auto) 29 % (24-48) Monocytes (%) (Auto) 17 % (0-9) Eosinophils (%) (Auto) 2 % (0-3) Basophils (%) (Auto) 2 % (0-3) Neutrophils # (Auto) 4.0 x10^3/uL (1.8-7.7) Lymphocytes # (Auto) 2.4 x10^3/uL (1.0-4.8) Monocytes # (Auto) 1.4 x10^3/uL (0.0-1.1) Eosinophils # (Auto) 0.2 x10^3/uL (0.0-0.7) Basophils # (Auto) 0.2 x10^3/uL (0.0-0.2) Sodium Level 138 mmol/L (136-145) Potassium Level 3.5 mmol/L (3.5-5.1) Chloride Level 106 mmol/L (98-107) Carbon Dioxide Level 22 mmol/L (21-32) Anion Gap 10 (6-14) Blood Urea Nitrogen 7 mg/dL (8-26) Creatinine 0.8 mg/dL (0.7-1.3) Estimated GFR (Cockcroft-Gault) 100.4 Glucose Level 85 mg/dL (70-99) Calcium Level 8.4 mg/dL (8.5-10.1) Brief Hospital Course Mr Lozada is a 53 yo w/ PMHx ETOH abuse, HTN, anxiety, GERD, admitted on 03/20/2019 for elective resection of a gastrointestinal stromal tumor. He underwent the surgery without any complication by Dr. Houston. Following the surgery, he started to go through alcohol withdrawal. His last drink was a day prior to admission. He states he does drink vodka. He will go through a half gallon handle of vodka about every 3 days. He has experienced alcohol wit hdrawal symptoms previously. He recalls there have been 3 or 4 occasions when he has gone through alcohol withdrawal and suffered a seizure. He did suffer a seizure at [facility] on 03/25/2019. He had been undergoing alcohol withdrawal protocol and was improving and the medicines were reduced and then he started to go through withdrawal again. He does not complain of any headache or pain. According to nurse, he had been agitated, confused and trying to climb out of bed. Consults: Pulm, Neuro, General surgery 03/27: Advanced diet. hypokalemia on replacement iv. He is much more alert today. bedside. He is asking for liquid diet today. Abdominal pain minimal. 03/28: Tolerating diet advancement well. He has minimal pain, no further ETOH with drawal sx. He is asking when he can go home. Today he is feeling well, tolerated diet well. He wants to quit ETOH, has asked for cessation help, given naltrexone script. 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 c/w severe abuse seizure last night 03/25 NEUROLOGY CONSULTED, on withdrawal precautions, ct head pending 03/26 hx Bilateral temporomandibular joint dislocations, 10/08 post seizure Accel HTN - started on amlodipine Sinus tachy Alcoholism - levels 208 Microcytic anemia - Differential includes colon or gastric cancer, Henry's, peptic ulcer disease,irritable bowel disease, arteriovenous malformations and/or bone marrow suppression with alcohol 37 min pt exam, chart review, > 50% of time spent with exam, chart review, pt care coordination Plan: dw IS Home with . ETOH cessation Pathology - A. Segment of stomach, partial gastrectomy: - Gastrointestinal stromal tumor, low-grade, mixed epitheloid and spindle cell type, measuring 5.5 cm in greatest dimension. - Margins of resection negative for tumor. - Mild chronic inflammation of gastric mucosa. . B. Liver, wedge biopsy: - Abundant steatosis - negative for malignancy Discharge Information Condition at Discharge: Improved Follow Up: Weeks Disposition/Orders: D/C to Home Scheduled Naltrexone Hcl (Naltrexone Hcl) 50 Mg Tablet, 1 TAB PO DAILY for Cravings for 30 Days, #30 Ref 2 Take 1 hour prior to addictive behaviors to reduce alcohol cravings Prescribed by: DYAN SANDOVAL MD on 03/29/19 1257 DYAN SANDOVAL MD Mar 29, 2019 13:04
[2019-03-29 15:00] VITALS: BP 127/83
--- NOTE | 2019-03-29 15:44 | NUR ---
Discharge Note: PASQUALE ORELLANA [facility] Discharge instructions and discharge home medications reviewed with Patient and a copy given. All questions have been answered and understanding verbalized. The following instructions and handouts were given: The follow up instructions were given. Patient was instructed to followup with Dr. Houston and PCP within two weeks. Discontinued lines and drains: 20G catheter tip intact. Patient tolerated well. Patient discharged to home via personal vehicle with .
== END 2019-03-29 15:32 | disposition home or self-care (01) | DRG 356 ==
LOC: OPSVCIP 09:08 → 1 WEST ICU 17:38 → 5 SOUTH 03-23 15:59 → 6 SOUTH 03-24 15:20
PROVIDERS: ADMIT Surgery; ATTEND Surgery
PROC: 0FB04ZX Excision of Liver, Percutaneous Endoscopic Approach, Diagnostic (ICD-10-PCS; 2019-03-20)
PROC: 0DB64ZZ Excision of Stomach, Percutaneous Endoscopic Approach (ICD-10-PCS; principal; 2019-03-20 11:00)
DX: C49.A0 Gastrointestinal stromal tumor, unspecified site (principal); J96.01 Acute respiratory failure with hypoxia; J98.11 Atelectasis; C78.7 Secondary malignant neoplasm of liver and intrahepatic bile duct; F10.239 Alcohol dependence with withdrawal, unspecified; E87.6 Hypokalemia; G40.909 Epilepsy, unspecified, not intractable, without status epilepticus; I10 Essential (primary) hypertension; I73.9 Peripheral vascular disease, unspecified; K76.0 Fatty (change of) liver, not elsewhere classified; Z80.0 Family history of malignant neoplasm of digestive organs; Z82.49 Family history of ischemic heart disease and other diseases of the circulatory system; Z85.00 Personal history of malignant neoplasm of unspecified digestive organ; F41.9 Anxiety disorder, unspecified; K21.9 Gastro-esophageal reflux disease without esophagitis
CPT/HCPCS: 36415; 70450; 71045; 80048; 80053; 82140; 82607; 82962; 83735; 84443; 85007; 85025; 86850; 86900; 86901; 88307; 88309; 88313; 88331; 88341; 88342; 93005; A7015; J0171; J0694; J0780; J1100; J1200; J1630; J1650; J2001; J2060; J2250; J2270; J2370; J2405; J2704; J2710; J3010; J3480; J3490; J7030; J7042; J7120; P9045; 97116; 97535; G0378

== ENCOUNTER 2019-06-05 22:21 | Inpatient (IN) | payer BC ==
[~2019-06-05] VITALS: Ht 182.9 cm; Wt 90.5 kg
[~2019-06-05 22:21] MED LIST changes: -HYDROmorphone 2 MG/ML VIAL IV PRN; -IV RINGERS,LACTATED 1000ML 1,000 ML IV SCH; -LIDOCAINE 1% PF 2 ML VIAL. ID PRN; -MORPHINE SULFATE 2 MG/ML VIAL. IV PRN; -ONDANSETRON PF 4 MG/2 ML VIAL. IV PRN; -PROCHLORPERAZINE 10 MG/2 ML VIAL. IV PRN; -cefOXitin SODIUM IV Push 2 GM VIAL. IVP PRN; -fentaNYL PF VIAL 100 MCG/2 ML VIAL IV PRN
--- NOTE | 2019-06-05 22:40 | PHYS DOC ---
Past Medical History Past Medical History: Hypertension, Other Additional Past Medical Histor: seizures with alcohol withdrawl,ETOH ABUSE Past Surgical History: Other Additional Past Surgical Histo: L ANKLE Smoking Status: Never Smoker Alcohol Use: Heavy Drug Use: None General Adult EDM: Chief Complaint: SEIZURE HPI: HPI: Patient is a 54 year old male who presents with report of seizure lasting 2-3 minutes at home. Seizure was witnessed by patient's and reported to EMS that patient has not had any alcohol for a little over 24 hours. Patient has had alcohol withdrawal seizures in the past. EMS reports the patient was postictal upon their arrival and they still rate him at a GCS of 14 due to mild confusion. Patient denies any pain or injury. Additional history is somewhat limited as patient is still somewhat confused following seizure.[] Review of Systems: Review of Systems: Constitutional: Denies fever or chills. [] Respiratory: Denies cough or shortness of breath. [] Cardiovascular: Denies chest pain or edema. [] GI: Denies abdominal pain, nausea, vomiting, bloody stools or diarrhea. [] Neurologic: Denies headache, focal weakness or sensory changes. [] A full 10 point review of systems has been reviewed and is otherwise negative. Heart Score: Risk Factors: Risk Factors: DM, Current or recent (<one month) smoker, HTN, HLP, family histo ry of CAD, obesity. Risk Scores: Score 0 - 3: 2.5% MACE over next 6 weeks - Discharge Home Score 4 - 6: 20.3% MACE over next 6 weeks - Admit for Clinical Observation Score 7 - 10: 72.7% MACE over next 6 weeks - Early Invasive Strategies Current Medications: Current Medications Medications (Trade) Dose Ordered Sig/[facility] Start Time Stop Time Status Last Admin Dose Admin Lorazepam (Ativan Inj) 2 mg 1X ONCE 06/05/19 23:00 06/05/19 23:01 Multivitamins 10 ml/Thiamine HCl 100 mg/Folic Acid 1 mg/Sodium Chloride 1,011.2 ml @ 1,000.088 mls/hr 1X ONCE 06/05/19 23:00 06/06/19 00:00 Allergies: Allergies: Allergies Coded Allergies Type Severity Reaction Last Updated Verified No Known Drug Allergies 03/20/19 No Physical Exam: PE: Constitutional: Well developed, well nourished, no acute distress, non-toxic appearance. [] HENT: Normocephalic, atraumatic, bilateral external ears normal, oropharynx dry, no oral exudates, nose normal. [] Eyes: PERRLA, EOMI, conjunctiva normal, no discharge. [] Neck: Normal range of motion, no tenderness, supple, no stridor. [] Cardiovascular: Tachycardic rate with regular rhythm[] Lungs & Thorax: Bilateral breath sounds clear to auscultation [] Abdomen: Bowel sounds normal, soft, no tenderness, no masses, no pulsatile masses. [] Skin: Warm, dry, no erythema, no rash. [] Extremities: No tenderness, no cyanosis, no clubbing, ROM intact, no edema. [] Neurologic: Awake and alert, no focal deficits noted. [] EKG: EKG: [] Radiology/Procedures: Radiology/Procedures: [] Course & Med Decision Making: Course & Med Decision Making Pertinent Labs and Imaging studies reviewed. (See chart for details) [] Dragon Disclaimer: Dragon Disclaimer: This electronic medical record was generated, in whole or in part, using a voice recognition dictation system. Departure Departure Impression: Primary Impression: Alcohol withdrawal seizure Qualified Codes: F10.239 - Alcohol dependence with withdrawal, unspecified; R56.9 - Unspecified convulsions Additional Impression: DTs (delirium tremens) Disposition: ADMITTED INPATIENT Admitting Physician: DOLORES Condition: IMPROVED Referrals: JARED MONTEMAYOR MD (PCP) KENAN AVILES Jr. DO Jun 05, 2019 22:40
[2019-06-05 22:42] LABS: BASO # 0.1 x10^3/uL (0.0-0.2); BASO % 1 % (0-3); EOS % 0 % (0-3); HEMATOCRIT 36.7 % (39.0-53.0); HEMOGLOBIN 10.5 g/dL (13.0-17.5); LYMPH # 2.8 x10^3/uL (1.0-4.8); LYMPH % 26 % (24-48); MEAN CORPUSCULAR HEMOGLOBIN 18 pg (25-35); MEAN CORPUSCULAR HGB CONC 29 g/dL (31-37); MEAN CORPUSCULAR VOLUME 63 fL (79-100); MONO % 10 % (0-9); NEUT # 6.8 x10^3/uL (1.8-7.7); NEUT % 63 % (31-73); PLATELET COUNT 143 x10^3/uL (140-400); RED BLOOD COUNT 5.79 x10^6/uL (4.30-5.70); RED CELL DISTRIBUTION WIDTH 22.7 % (11.5-14.5); WHITE BLOOD COUNT 10.7 x10^3/uL (4.0-11.0)
[2019-06-05 22:47] LABS: CALCIUM 9.2 mg/dL (8.5-10.1); CREATININE 1.5 mg/dL (0.7-1.3); GFR 48.4; POTASSIUM 3.5 mmol/L (3.5-5.1)
[2019-06-05 22:52] LABS: TOTAL BILIRUBIN 1.3 mg/dL (0.2-1.0); TOTAL PROTEIN 8.2 g/dL (6.4-8.2)
[2019-06-05] MEDS ORDERED: MULTIVIT INFUSN,ADULT 4,VIT K 10 ML, THIAMINE INJ 100 MG, FOLIC ACID INJ 1 MG in IV NOR... IV ONE (23:00)
[2019-06-05 23:14] LABS: ANISOCYTOSIS MOD; HYPOCHROMIA MARKED; MICROCYTOSIS MARKED; PLT ESTIMATE ADEQUATE (ADEQUATE); POIKILOCYTOSIS SLIGHT; POLYCHROMASIA SLIGHT
[2019-06-05 23:15] LABS: OVALOCYTES FEW; SCHISTOCYTES OCC
[2019-06-05 23:52] LABS: BARBITURATES NEG (NEG); BENZODIAZEPINES NEG (NEG); CANNABINOIDS NEG (NEG); COCAINE NEG (NEG); METHADONE NEG (NEG); OPIATES NEG (NEG); PHENCYCLIDINE NEG (NEG)
[2019-06-05 23:53] LABS: AMPHETAMINE/METHAMPHETAMINE NEG (NEG)
[2019-06-06] MEDS ORDERED: IV NORMAL SALINE 1000ML BAG 1,000 ML IV SCH
[2019-06-06 00:30] VITALS: BP 179/108
[2019-06-06 03:25] VITALS: BP 146/108
[2019-06-06 05:05] LABS: BASO # 0.1 x10^3/uL (0.0-0.2); BASO % 0 % (0-3); EOS % 0 % (0-3); HEMATOCRIT 30.1 % (39.0-53.0); LYMPH # 3.1 x10^3/uL (1.0-4.8); LYMPH % 23 % (24-48); MEAN CORPUSCULAR HEMOGLOBIN 18 pg (25-35); MEAN CORPUSCULAR HGB CONC 30 g/dL (31-37); MEAN CORPUSCULAR VOLUME 62 fL (79-100); MONO # 0.9 x10^3/uL (0.0-1.1); MONO % 7 % (0-9); NEUT # 9.4 x10^3/uL (1.8-7.7); NEUT % 70 % (31-73); PLATELET COUNT 136 x10^3/uL (140-400); RED BLOOD COUNT 4.89 x10^6/uL (4.30-5.70); WHITE BLOOD COUNT 13.6 x10^3/uL (4.0-11.0)
[2019-06-06 05:13] LABS: CALCIUM 8.5 mg/dL (8.5-10.1); CREATININE 0.8 mg/dL (0.7-1.3)
[2019-06-06 07:00] VITALS: BP 150/98
[2019-06-06] MEDS ORDERED: diphenhydrAMINE 50 MG/ML VIAL IVP PRN (08:15)
[2019-06-06] MEDS ORDERED: LORazepam 1 MG TABLET PO PRN (08:15)
[2019-06-06] MEDS ORDERED: cloNIDine HCL 0.1 MG TABLET PO PRN (08:15)
--- NOTE | 2019-06-06 08:18 | PDOC1 ---
History and Physical Date of Admission Date of Admission DATE: 06/06/19 TIME: 08:13 Source Source: Chart review, Patient History of Present Illness History of Present Illness EMS called to his house last night for a seizure. HE normally drinkins a half liter of vodka daily, and stopped 24 hours prior. his witness a few minutes of generlized tc seizure. 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, unsure of outcome) Family History Family History: No Significant, Other Social History Smoke: No ALCOHOL: heavy Drugs: None Current Problem List Problem List Problems Medical Problems: (1) Alcohol withdrawal seizure Status: Acute (2) DTs (delirium tremens) Status: Acute Current Medications Current Medications Current Medications Multivitamins 10 ml/Thiamine HCl 100 mg/Folic Acid 1 mg/Sodium Chloride 1,011.2 ml @ 1,000.088 mls/hr 1X ONCE IV Last administered on 06/05/19at 22:43; Start 06/05/19 at 23:00; Stop 06/06/19 at 00:00; Status DC Lorazepam (Ativan Inj) 2 mg 1X ONCE IVP Last administered on 06/05/19at 22:43; Start 06/05/19 at 23:00; Stop 06/05/19 at 23:01; Status DC Sodium Chloride 1,000 ml @ 125 mls/hr Q8H IV Last administered on 06/06/19at 00:10; Start 06/06/19 at 00:00; Stop 06/06/19 at 00:01; Status DC Active Scripts Active Reported No Known Medications Prior To Admisstion (Info) Each 1 Each MC 1X Allergies Allergies: Coded Allergies: No Known Drug Allergies (Unverified , 03/20/19) ROS General: No: Chills, Night Sweats, Fatigue, Malaise, Appetite, Other PSYCHOLOGICAL ROS: No: Anxiety, Behavioral Disorder, Concentration difficultie, Decreased libido, Depression, Disorientation, Hallucinations, Hostility, Irritablity, Memory difficulties, Mood Swings, Obsessive thoughts, Physical abuse, Sexual abuse, Sleep disturbances, Suicidal ideation, Other Eyes: No Blurry vision, No Decreased vision, No Double vision, No Dry eyes, No Excessive tearing, No Eye Pain, No Itchy Eyes, No Loss of vision, No Photophobia, No Scotomata, No Uses contacts, No Uses glasses, No Other HEENT: No: Heacaches, Visual Changes, Hearing change, Nasal congestion, Nasal discharge, Oral lesions, Sinus pain, Sore Throat, Epistaxis, Sneezing, Snoring, Tinnitus, Vertigo, Vocal changes, Other Respiratory: No: Cough, Hemoptysis, Orthopnea, Pleuritic Pain, Shortness of breath, SOB with excertion, Sputum Changes, Stridor, Tachypnea, Wheezing, Other Cardiovascular: No Chest Pain, No Palpitations, No Orthopnea, No Paroxysmal Noc. Dyspnea, No Edema, No Lt Headedness, No Other Gastrointestinal: Yes Nausea; No Vomiting, No Abdominal Pain, No Diarrhea, No Constipation, No Melena, No Hematochezia, No Other Genitourinary: No Dysuria, No Frequency, No Incontinence, No Hematuria, No Retention, No Discharge, No Urgency, No Pain, No Flank Pain, No Other, No , No , No , No , No , No , No Musculoskeletal: Yes Gait Disturbance Neurological: Yes Dizziness Skin: No Dry Skin, No Eczema, No Hair Changes, No Lumps, No Mole Changes, No Mottling, No Nail Changes, No Pruritus, No Rash, No Skin Lesion Changes, No Other, No Acne Physical Exam General: Alert, Cooperative, No acute distress Lungs: Clear to auscultation Heart: S1S2 Abdomen: Normal bowel sounds, Soft Extremities: No clubbing, No edema Skin: No breakdown Neuro: Other (nystagmus, slight asterixis, ) Vitals Vitals Vital Signs Date Time Temp Pulse Resp B/P (MAP) Pulse Ox O2 Delivery O2 Flow Rate FiO2 06/06/19 07:00 98.4 101 20 150/98 (115) 94 Room Air 98.4 Labs Labs Laboratory Tests Test 06/05/19 22:30 06/05/19 23:35 06/06/19 01:42 06/06/19 04:45 White Blood Count 10.7 x10^3/uL (4.0-11.0) 13.6 x10^3/uL (4.0-11.0) Red Blood Count 5.79 x10^6/uL (4.30-5.70) 4.89 x10^6/uL (4.30-5.70) Hemoglobin 10.5 g/dL (13.0-17.5) 9.0 g/dL (13.0-17.5) Hematocrit 36.7 % (39.0-53.0) 30.1 % (39.0-53.0) Mean Corpuscular Volume 63 fL (79-100) 62 fL (79-100) Mean Corpuscular Hemoglobin 18 pg (25-35) 18 pg (25-35) Mean Corpuscular Hemoglobin Concent 29 g/dL (31-37) 30 g/dL (31-37) Red Cell Distribution Width 22.7 % (11.5-14.5) 23.0 % (11.5-14.5) Platelet Count 143 x10^3/uL (140-400) 136 x10^3/uL (140-400) Neutrophils (%) (Auto) 63 % (31-73) 70 % (31-73) Lymphocytes (%) (Auto) 26 % (24-48) 23 % (24-48) Monocytes (%) (Auto) 10 % (0-9) 7 % (0-9) Eosinophils (%) (Auto) 0 % (0-3) 0 % (0-3) Basophils (%) (Auto) 1 % (0-3) 0 % (0-3) Neutrophils # (Auto) 6.8 x10^3/uL (1.8-7.7) 9.4 x10^3/uL (1.8-7.7) Lymphocytes # (Auto) 2.8 x10^3/uL (1.0-4.8) 3.1 x10^3/uL (1.0-4.8) Monocytes # (Auto) 1.0 x10^3/uL (0.0-1.1) 0.9 x10^3/uL (0.0-1.1) Eosinophils # (Auto) 0.0 x10^3/uL (0.0-0.7) 0.0 x10^3/uL (0.0-0.7) Basophils # (Auto) 0.1 x10^3/uL (0.0-0.2) 0.1 x10^3/uL (0.0-0.2) Platelet Estimate Adequate (ADEQUATE) Large Platelets Present Polychromasia Slight Hypochromasia Marked Poikilocytosis Slight Anisocytosis Mod Microcytosis Marked Ovalocytes Few Schistocytes Occ Sodium Level 138 mmol/L (136-145) 137 mmol/L (136-145) Potassium Level 3.5 mmol/L (3.5-5.1) 3.0 mmol/L (3.5-5.1) Chloride Level 98 mmol/L (98-107) 103 mmol/L (98-107) Carbon Dioxide Level 14 mmol/L (21-32) 24 mmol/L (21-32) Anion Gap 26 (6-14) 10 (6-14) Blood Urea Nitrogen 9 mg/dL (8-26) 9 mg/dL (8-26) Creatinine 1.5 mg/dL (0.7-1.3) 0.8 mg/dL (0.7-1.3) Estimated GFR (Cockcroft-Gault) 48.4 100.0 BUN/Creatinine Ratio 6 (6-20) Glucose Level 187 mg/dL (70-99) 102 mg/dL (70-99) Lactic Acid Level 14.0 mmol/L (0.4-2.0) 2.1 mmol/L (0.4-2.0) Calcium Level 9.2 mg/dL (8.5-10.1) 8.5 mg/dL (8.5-10.1) Total Bilirubin 1.3 mg/dL (0.2-1.0) Aspartate Amino Transf (AST/SGOT) 45 U/L (15-37) Alanine Aminotransferase (ALT/SGPT) 46 U/L (16-63) Alkaline Phosphatase 70 U/L (46-116) Total Protein 8.2 g/dL (6.4-8.2) Albumin 4.0 g/dL (3.4-5.0) Albumin/Globulin Ratio 1.0 (1.0-1.7) Ethyl Alcohol Level < 10 mg/dL (0-10) Urine Opiates Screen Neg (NEG) Urine Methadone Screen Neg (NEG) Urine Barbiturates Neg (NEG) Urine Phencyclidine Screen Neg (NEG) Urine Amphetamine/Methamphetamine Neg (NEG) Urine Benzodiazepines Screen Neg (NEG) Urine Cocaine Screen Neg (NEG) Urine Cannabinoids Screen Neg (NEG) Urine Ethyl Alcohol Neg (NEG) Laboratory Tests Test 06/05/19 22:30 06/05/19 23:35 06/06/19 01:42 06/06/19 04:45 White Blood Count 10.7 x10^3/uL (4.0-11.0) 13.6 x10^3/uL (4.0-11.0) Red Blood Count 5.79 x10^6/uL (4.30-5.70) 4.89 x10^6/uL (4.30-5.70) Hemoglobin 10.5 g/dL (13.0-17.5) 9.0 g/dL (13.0-17.5) Hematocrit 36.7 % (39.0-53.0) 30.1 % (39.0-53.0) Mean Corpuscular Volume 63 fL (79-100) 62 fL (79-100) Mean Corpuscular Hemoglobin 18 pg (25-35) 18 pg (25-35) Mean Corpuscular Hemoglobin Concent 29 g/dL (31-37) 30 g/dL (31-37) Red Cell Distribution Width 22.7 % (11.5-14.5) 23.0 % (11.5-14.5) Platelet Count 143 x10^3/uL (140-400) 136 x10^3/uL (140-400) Neutrophils (%) (Auto) 63 % (31-73) 70 % (31-73) Lymphocytes (%) (Auto) 26 % (24-48) 23 % (24-48) Monocytes (%) (Auto) 10 % (0-9) 7 % (0-9) Eosinophils (%) (Auto) 0 % (0-3) 0 % (0-3) Basophils (%) (Auto) 1 % (0-3) 0 % (0-3) Neutrophils # (Auto) 6.8 x10^3/uL (1.8-7.7) 9.4 x10^3/uL (1.8-7.7) Lymphocytes # (Auto) 2.8 x10^3/uL (1.0-4.8) 3.1 x10^3/uL (1.0-4.8) Monocytes # (Auto) 1.0 x10^3/uL (0.0-1.1) 0.9 x10^3/uL (0.0-1.1) Eosinophils # (Auto) 0.0 x10^3/uL (0.0-0.7) 0.0 x10^3/uL (0.0-0.7) Basophils # (Auto) 0.1 x10^3/uL (0.0-0.2) 0.1 x10^3/uL (0.0-0.2) Platelet Estimate Adequate (ADEQUATE) Large Platelets Present Polychromasia Slight Hypochromasia Marked Poikilocytosis Slight Anisocytosis Mod Microcytosis Marked Ovalocytes Few Schistocytes Occ Sodium Level 138 mmol/L (136-145) 137 mmol/L (136-145) Potassium Level 3.5 mmol/L (3.5-5.1) 3.0 mmol/L (3.5-5.1) Chloride Level 98 mmol/L (98-107) 103 mmol/L (98-107) Carbon Dioxide Level 14 mmol/L (21-32) 24 mmol/L (21-32) Anion Gap 26 (6-14) 10 (6-14) Blood Urea Nitrogen 9 mg/dL (8-26) 9 mg/dL (8-26) Creatinine 1.5 mg/dL (0.7-1.3) 0.8 mg/dL (0.7-1.3) Estimated GFR (Cockcroft-Gault) 48.4 100.0 BUN/Creatinine Ratio 6 (6-20) Glucose Level 187 mg/dL (70-99) 102 mg/dL (70-99) Lactic Acid Level 14.0 mmol/L (0.4-2.0) 2.1 mmol/L (0.4-2.0) Calcium Level 9.2 mg/dL (8.5-10.1) 8.5 mg/dL (8.5-10.1) Total Bilirubin 1.3 mg/dL (0.2-1.0) Aspartate Amino Transf (AST/SGOT) 45 U/L (15-37) Alanine Aminotransferase (ALT/SGPT) 46 U/L (16-63) Alkaline Phosphatase 70 U/L (46-116) Total Protein 8.2 g/dL (6.4-8.2) Albumin 4.0 g/dL (3.4-5.0) Albumin/Globulin Ratio 1.0 (1.0-1.7) Ethyl Alcohol Level < 10 mg/dL (0-10) Urine Opiates Screen Neg (NEG) Urine Methadone Screen Neg (NEG) Urine Barbiturates Neg (NEG) Urine Phencyclidine Screen Neg (NEG) Urine Amphetamine/Methamphetamine Neg (NEG) Urine Benzodiazepines Screen Neg (NEG) Urine Cocaine Screen Neg (NEG) Urine Cannabinoids Screen Neg (NEG) Urine Ethyl Alcohol Neg (NEG) VTE Prophylaxis Ordered VTE Prophylaxis Devices: No VTE Pharmacological Prophylaxi: Yes Assessment/Plan Assessment/Plan acute toxic encephalopathy seizure from Alcohol withdrawl alcohol abuse, 0.5 liter vodka daily, and abrubtly stopped acute renal failure, vasomotor, hydrate hypokalemia, CIWA, fluid, ativan sched. supportive care HALEY SOTO MD Jun 06, 2019 08:18
[2019-06-06] MEDS ORDERED: POTASSIUM CHLORIDE 20 MEQ TABLET.ER. PO ONE (09:00)
[2019-06-06] MEDS ORDERED: LORazepam 1 MG TABLET PO SCH (09:00)
[2019-06-06 11:04] VITALS: BP 157/99
--- NOTE | 2019-06-06 14:50 | NUR ---
SS following for discharge planning. SS reviewed pt chart and discussed with pt RN. Pt is from home with spouse and is currently on room air. ETOH reported. PAT team referral made for assessment. SS will continue to follow for discharge planning.
[2019-06-06 15:00] VITALS: BP 132/101
--- NOTE | 2019-06-06 15:23 | PDOC3 ---
Discharge Summary Visit Information Date of Admission: Jun 05, 2019 Date of Discharge: Jun 06, 2019 Final Diagnosis seizure from Alcohol withdrawl alcohol abuse, 0.5 liter vodka daily, and abrubtly stopped acute renal failure, vasomotor, hydrate hypokalemia, Problems Medical Problems: (1) Alcohol withdrawal seizure Status: Acute (2) DTs (delirium tremens) Status: Acute Brief Hospital Course Allergies Allergies Coded Allergies Type Severity Reaction Last Updated Verified No Known Drug Allergies 03/20/19 No Vital Signs Vital Signs Date Time Temp Pulse Resp B/P (MAP) Pulse Ox O2 Delivery O2 Flow Rate FiO2 06/06/19 11:04 98.4 103 18 157/99 (118) 94 Room Air 98.4 Lab Results Laboratory Tests Test 06/05/19 22:30 06/05/19 23:35 06/06/19 01:42 06/06/19 04:45 White Blood Count 10.7 x10^3/uL (4.0-11.0) 13.6 x10^3/uL (4.0-11.0) Red Blood Count 5.79 x10^6/uL (4.30-5.70) 4.89 x10^6/uL (4.30-5.70) Hemoglobin 10.5 g/dL (13.0-17.5) 9.0 g/dL (13.0-17.5) Hematocrit 36.7 % (39.0-53.0) 30.1 % (39.0-53.0) Mean Corpuscular Volume 63 fL (79-100) 62 fL (79-100) Mean Corpuscular Hemoglobin 18 pg (25-35) 18 pg (25-35) Mean Corpuscular Hemoglobin Concent 29 g/dL (31-37) 30 g/dL (31-37) Red Cell Distribution Width 22.7 % (11.5-14.5) 23.0 % (11.5-14.5) Platelet Count 143 x10^3/uL (140-400) 136 x10^3/uL (140-400) Neutrophils (%) (Auto) 63 % (31-73) 70 % (31-73) Lymphocytes (%) (Auto) 26 % (24-48) 23 % (24-48) Monocytes (%) (Auto) 10 % (0-9) 7 % (0-9) Eosinophils (%) (Auto) 0 % (0-3) 0 % (0-3) Basophils (%) (Auto) 1 % (0-3) 0 % (0-3) Neutrophils # (Auto) 6.8 x10^3/uL (1.8-7.7) 9.4 x10^3/uL (1.8-7.7) Lymphocytes # (Auto) 2.8 x10^3/uL (1.0-4.8) 3.1 x10^3/uL (1.0-4.8) Monocytes # (Auto) 1.0 x10^3/uL (0.0-1.1) 0.9 x10^3/uL (0.0-1.1) Eosinophils # (Auto) 0.0 x10^3/uL (0.0-0.7) 0.0 x10^3/uL (0.0-0.7) Basophils # (Auto) 0.1 x10^3/uL (0.0-0.2) 0.1 x10^3/uL (0.0-0.2) Platelet Estimate Adequate (ADEQUATE) Large Platelets Present Polychromasia Slight Hypochromasia Marked Poikilocytosis Slight Anisocytosis Mod Microcytosis Marked Ovalocytes Few Schistocytes Occ Sodium Level 138 mmol/L (136-145) 137 mmol/L (136-145) Potassium Level 3.5 mmol/L (3.5-5.1) 3.0 mmol/L (3.5-5.1) Chloride Level 98 mmol/L (98-107) 103 mmol/L (98-107) Carbon Dioxide Level 14 mmol/L (21-32) 24 mmol/L (21-32) Anion Gap 26 (6-14) 10 (6-14) Blood Urea Nitrogen 9 mg/dL (8-26) 9 mg/dL (8-26) Creatinine 1.5 mg/dL (0.7-1.3) 0.8 mg/dL (0.7-1.3) Estimated GFR (Cockcroft-Gault) 48.4 100.0 BUN/Creatinine Ratio 6 (6-20) Glucose Level 187 mg/dL (70-99) 102 mg/dL (70-99) Lactic Acid Level 14.0 mmol/L (0.4-2.0) 2.1 mmol/L (0.4-2.0) Calcium Level 9.2 mg/dL (8.5-10.1) 8.5 mg/dL (8.5-10.1) Total Bilirubin 1.3 mg/dL (0.2-1.0) Aspartate Amino Transf (AST/SGOT) 45 U/L (15-37) Alanine Aminotransferase (ALT/SGPT) 46 U/L (16-63) Alkaline Phosphatase 70 U/L (46-116) Total Protein 8.2 g/dL (6.4-8.2) Albumin 4.0 g/dL (3.4-5.0) Albumin/Globulin Ratio 1.0 (1.0-1.7) Ethyl Alcohol Level < 10 mg/dL (0-10) Urine Opiates Screen Neg (NEG) Urine Methadone Screen Neg (NEG) Urine Barbiturates Neg (NEG) Urine Phencyclidine Screen Neg (NEG) Urine Amphetamine/Methamphetamine Neg (NEG) Urine Benzodiazepines Screen Neg (NEG) Urine Cocaine Screen Neg (NEG) Urine Cannabinoids Screen Neg (NEG) Urine Ethyl Alcohol Neg (NEG) Laboratory Tests Test 06/05/19 22:30 06/05/19 23:35 06/06/19 01:42 06/06/19 04:45 White Blood Count 10.7 x10^3/uL (4.0-11.0) 13.6 x10^3/uL (4.0-11.0) Red Blood Count 5.79 x10^6/uL (4.30-5.70) 4.89 x10^6/uL (4.30-5.70) Hemoglobin 10.5 g/dL (13.0-17.5) 9.0 g/dL (13.0-17.5) Hematocrit 36.7 % (39.0-53.0) 30.1 % (39.0-53.0) Mean Corpuscular Volume 63 fL (79-100) 62 fL (79-100) Mean Corpuscular Hemoglobin 18 pg (25-35) 18 pg (25-35) Mean Corpuscular Hemoglobin Concent 29 g/dL (31-37) 30 g/dL (31-37) Red Cell Distribution Width 22.7 % (11.5-14.5) 23.0 % (11.5-14.5) Platelet Count 143 x10^3/uL (140-400) 136 x10^3/uL (140-400) Neutrophils (%) (Auto) 63 % (31-73) 70 % (31-73) Lymphocytes (%) (Auto) 26 % (24-48) 23 % (24-48) Monocytes (%) (Auto) 10 % (0-9) 7 % (0-9) Eosinophils (%) (Auto) 0 % (0-3) 0 % (0-3) Basophils (%) (Auto) 1 % (0-3) 0 % (0-3) Neutrophils # (Auto) 6.8 x10^3/uL (1.8-7.7) 9.4 x10^3/uL (1.8-7.7) Lymphocytes # (Auto) 2.8 x10^3/uL (1.0-4.8) 3.1 x10^3/uL (1.0-4.8) Monocytes # (Auto) 1.0 x10^3/uL (0.0-1.1) 0.9 x10^3/uL (0.0-1.1) Eosinophils # (Auto) 0.0 x10^3/uL (0.0-0.7) 0.0 x10^3/uL (0.0-0.7) Basophils # (Auto) 0.1 x10^3/uL (0.0-0.2) 0.1 x10^3/uL (0.0-0.2) Platelet Estimate Adequate (ADEQUATE) Large Platelets Present Polychromasia Slight Hypochromasia Marked Poikilocytosis Slight Anisocytosis Mod Microcytosis Marked Ovalocytes Few Schistocytes Occ Sodium Level 138 mmol/L (136-145) 137 mmol/L (136-145) Potassium Level 3.5 mmol/L (3.5-5.1) 3.0 mmol/L (3.5-5.1) Chloride Level 98 mmol/L (98-107) 103 mmol/L (98-107) Carbon Dioxide Level 14 mmol/L (21-32) 24 mmol/L (21-32) Anion Gap 26 (6-14) 10 (6-14) Blood Urea Nitrogen 9 mg/dL (8-26) 9 mg/dL (8-26) Creatinine 1.5 mg/dL (0.7-1.3) 0.8 mg/dL (0.7-1.3) Estimated GFR (Cockcroft-Gault) 48.4 100.0 BUN/Creatinine Ratio 6 (6-20) Glucose Level 187 mg/dL (70-99) 102 mg/dL (70-99) Lactic Acid Level 14.0 mmol/L (0.4-2.0) 2.1 mmol/L (0.4-2.0) Calcium Level 9.2 mg/dL (8.5-10.1) 8.5 mg/dL (8.5-10.1) Total Bilirubin 1.3 mg/dL (0.2-1.0) Aspartate Amino Transf (AST/SGOT) 45 U/L (15-37) Alanine Aminotransferase (ALT/SGPT) 46 U/L (16-63) Alkaline Phosphatase 70 U/L (46-116) Total Protein 8.2 g/dL (6.4-8.2) Albumin 4.0 g/dL (3.4-5.0) Albumin/Globulin Ratio 1.0 (1.0-1.7) Ethyl Alcohol Level < 10 mg/dL (0-10) Urine Opiates Screen Neg (NEG) Urine Methadone Screen Neg (NEG) Urine Barbiturates Neg (NEG) Urine Phencyclidine Screen Neg (NEG) Urine Amphetamine/Methamphetamine Neg (NEG) Urine Benzodiazepines Screen Neg (NEG) Urine Cocaine Screen Neg (NEG) Urine Cannabinoids Screen Neg (NEG) Urine Ethyl Alcohol Neg (NEG) Brief Hospital Course Mr. Lozada is a 54 old admit after seizure,. alcohol withdrawl CIWA given , a couple doses ativan and he was stable, cognizant, able to walk, was going to leave AMA Discharge Information Disposition/Orders: D/C to Home Scheduled Info (No Known Medications Prior To Admisstion) Each, 1 EACH 1X for none, (Reported) Entered as Reported by: RENALDO COUGHLIN on 06/06/19103 Last Action: New Order on 06/06/19103 by HALEY GAXIOLA MD Jun 06, 2019 15:23
--- NOTE | 2019-06-06 16:20 | NUR ---
Discharge Note: PASQUALE ORELLANA Discharge instructions and discharge home medications reviewed with Patient and a copy given. All questions have been answered and understanding verbalized. The following instructions and handouts were given: seizures, alcohol withdrawal Patient discharged to home with via ambulatory.
[2019-06-06] MEDS ORDERED: MULTIVIT INFUSN,ADULT 4,VIT K 10 ML, THIAMINE INJ 100 MG, FOLIC ACID INJ 1 MG in IV NOR... IV SCH (21:00)
[2019-06-07] MEDS ORDERED: POTASSIUM CHLORIDE 20 MEQ TABLET.ER. PO SCH (08:00)
== END 2019-06-06 16:22 | disposition home or self-care (01) | DRG 896 ==
LOC: ER 22:21 → 2 SOUTH 23:42
PROVIDERS: ADMIT Internal Medicine; ATTEND Internal Medicine
DX: F10.231 Alcohol dependence with withdrawal delirium (principal); G92 Toxic encephalopathy; N17.9 Acute kidney failure, unspecified; E87.6 Hypokalemia; I10 Essential (primary) hypertension; R56.9 Unspecified convulsions; R40.2410 Glasgow coma scale score 13-15, unspecified time; Z53.29 Procedure and treatment not carried out because of patient's decision for other reasons
CPT/HCPCS: 36415; 80048; 80053; 80307; 83605; 85025; 96365; 96366; 96375; 99285; G0480; J2060; J3411; J3490; J7030; G0378

== ENCOUNTER 2019-06-26 08:53 | Emergency (ER) | payer BC ==
[~2019-06-26] VITALS: Ht 175.3 cm; Wt 88.6 kg
[2019-06-26] MEDS ORDERED: ONDANSETRON PF 4 MG/2 ML VIAL. IVP ONE (09:30)
[2019-06-26 09:49] LABS: CALCIUM 8.8 mg/dL (8.5-10.1); CREATININE 0.8 mg/dL (0.7-1.3); POTASSIUM 3.6 mmol/L (3.5-5.1)
[2019-06-26 09:55] LABS: ALBUMIN 3.4 g/dL (3.4-5.0); ALBUMIN/GLOBULIN RATIO 0.9 (1.0-1.7); MAGNESIUM 1.3 mg/dL (1.8-2.4); TOTAL PROTEIN 7.2 g/dL (6.4-8.2)
[2019-06-26 09:57] LABS: BASO # 0.1 x10^3/uL (0.0-0.2); BASO % 1 % (0-3); EOS % 1 % (0-3); HEMATOCRIT 32.8 % (39.0-53.0); HEMOGLOBIN 9.8 g/dL (13.0-17.5); LYMPH # 2.5 x10^3/uL (1.0-4.8); LYMPH % 37 % (24-48); MEAN CORPUSCULAR HEMOGLOBIN 18 pg (25-35); MEAN CORPUSCULAR HGB CONC 30 g/dL (31-37); MEAN CORPUSCULAR VOLUME 62 fL (79-100); MONO # 0.5 x10^3/uL (0.0-1.1); MONO % 8 % (0-9); NEUT # 3.5 x10^3/uL (1.8-7.7); NEUT % 53 % (31-73); PLATELET COUNT 660 x10^3/uL (140-400); RED CELL DISTRIBUTION WIDTH 21.9 % (11.5-14.5); WHITE BLOOD COUNT 6.6 x10^3/uL (4.0-11.0)
[2019-06-26] MEDS ORDERED: MULTIVIT INFUSN,ADULT 4,VIT K 10 ML, THIAMINE INJ 100 MG, FOLIC ACID INJ 1 MG in IV NOR... IV ONE (10:00)
--- NOTE | 2019-06-26 10:08 | EKG ---
[facility] [address] [place] [address] Test Date: 2019-06-26 Test Time: 09:13:54 Pat Name: PASQUALE ORELLANA Department: Room: Gender: M Representative: : 1965 Requested By: JACY MOODY Order Number: [id number] Reading MD: Jalen Moise Measurements Intervals [place] Rate: 106 P: 34 [place]: 140 QRS: -23 QRSD: 104 T: 1 QT: 366 QTc: 488 Interpretive Statements SINUS TACHYCARDIA LEFTWARD AXIS Electronically Signed On 06-27-2019 8:03:56 CDT by Jalen Moise
[2019-06-26] MEDS ORDERED: LORA2TAB89 PO (10:51)
--- NOTE | 2019-06-26 10:52 | PHYS DOC ---
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 Patient states he last drank 12 hours ago and reports epigastric pain with nausea without vomiting. Reports feelings of anxiety and tremors. Denies chest pain, palpitations, shortness of breath, dizziness and seizure episodes. Patient last detox from alcohol 1 month ago. Patient took Zofran at home with minimal relief. Patient typically drinks at least 1/2 pint of alcohol daily. Denies drug use. [] Review of Systems: Review of Systems: Review of systems as per HPI. All other review of symptoms are negative Heart Score: Risk Factors: Risk Factors: DM, Current or recent (<one month) smoker, HTN, HLP, family history of CAD, obesity. Risk Scores: Score 0 - 3: 2.5% MACE over next 6 weeks - Discharge Home Score 4 - 6: 20.3% MACE over next 6 weeks - Admit for Clinical Observation Score 7 - 10: 72.7% MACE over next 6 weeks - Early Invasive Strategies Current Medications: Current Medications Medications (Trade) Dose Ordered Sig/Jacqueline Start Time Stop Time Status Last Admin Dose Admin Lorazepam (Ativan Inj) 2 mg 1X ONCE 06/26/19 10:45 06/26/19 10:46 Multivitamins 10 ml/Thiamine HCl 100 mg/Folic Acid 1 mg/Sodium Chloride 1,011.2 ml @ 1,000.088 mls/hr 1X ONCE 06/26/19 10:00 06/26/19 11:00 06/26/19 10:10 1,000.088 MLS/HR Ondansetron HCl (Zofran) 4 mg 1X ONCE 06/26/19 09:30 06/26/19 09:31 DC 06/26/19 09:49 4 MG Allergies: Allergies: Allergies Coded Allergies Type Severity Reaction Last Updated Verified No Known Drug Allergies 03/20/19 No Physical Exam: PE: Constitutional: Well developed, well nourished, no acute distress, non-toxic appearance. [] HENT: Normocephalic, atraumatic, bilateral external ears normal, oropharynx moist, nose normal. [] Eyes: PERRLA, EOMI, conjunctiva injected. [] Neck: Normal range of motion, no tenderness. [] Cardiovascular:Heart rate regular rhythm, no murmur [] Lungs & Thorax: Bilateral breath sounds clear to auscultation. [] Abdomen: Bowel sounds normal, soft, nptenderness. [] Skin: Warm, dry, no erythema, no rash. [] Back: No tenderness. [] Extremities: No tenderness, no cyanosis, no clubbing, ROM intact, no edema. [] Neurologic: Alert and oriented X 3, normal motor function, normal sensory function, no focal deficits noted. [] Psychologic: Affect anxious, judgement normal, mood normal. [] Current Patient Data: Labs: Laboratory Tests Test 06/26/19 09:35 White Blood Count 6.6 x10^3/uL (4.0-11.0) Red Blood Count 5.30 x10^6/uL (4.30-5.70) Hemoglobin 9.8 g/dL (13.0-17.5) L Hematocrit 32.8 % (39.0-53.0) L Mean Corpuscular Volume 62 fL (79-100) L Mean Corpuscular Hemoglobin 18 pg (25-35) L Mean Corpuscular Hemoglobin Concent 30 g/dL (31-37) L Red Cell Distribution Width 21.9 % (11.5-14.5) H Platelet Count 660 x10^3/uL (140-400) H Neutrophils (%) (Auto) 53 % (31-73) Lymphocytes (%) (Auto) 37 % (24-48) Monocytes (%) (Auto) 8 % (0-9) Eosinophils (%) (Auto) 1 % (0-3) Basophils (%) (Auto) 1 % (0-3) Neutrophils # (Auto) 3.5 x10^3/uL (1.8-7.7) Lymphocytes # (Auto) 2.5 x10^3/uL (1.0-4.8) Monocytes # (Auto) 0.5 x10^3/uL (0.0-1.1) Eosinophils # (Auto) 0.0 x10^3/uL (0.0-0.7) Basophils # (Auto) 0.1 x10^3/uL (0.0-0.2) Platelet Estimate Pending Sodium Level 134 mmol/L (136-145) L Potassium Level 3.6 mmol/L (3.5-5.1) Chloride Level 99 mmol/L (98-107) Carbon Dioxide Level 24 mmol/L (21-32) Anion Gap 11 (6-14) Blood Urea Nitrogen 7 mg/dL (8-26) L Creatinine 0.8 mg/dL (0.7-1.3) Estimated GFR (Cockcroft-Gault) 100.0 BUN/Creatinine Ratio 9 (6-20) Glucose Level 110 mg/dL (70-99) H Calcium Level 8.8 mg/dL (8.5-10.1) Magnesium Level 1.3 mg/dL (1.8-2.4) L Total Bilirubin 1.0 mg/dL (0.2-1.0) Aspartate Amino Transferase (AST) 29 U/L (15-37) Alanine Aminotransferase (ALT) 31 U/L (16-63) Alkaline Phosphatase 69 U/L (46-116) Creatine Kinase 187 U/L (39-308) Total Protein 7.2 g/dL (6.4-8.2) Albumin 3.4 g/dL (3.4-5.0) Albumin/Globulin Ratio 0.9 (1.0-1.7) L Lipase 166 U/L (73-393) Laboratory Tests 06/26/19 09:35 Laboratory Tests 06/26/19 09:35 Vital Signs: Vital Signs Date Time Temp Pulse Resp B/P (MAP) Pulse Ox O2 Delivery O2 Flow Rate FiO2 06/26/19 10:06 106 20 165/114 (131) 96 Room Air 06/26/19 09:00 98.4 98.4 EKG: EKG: [EKG: reviewed] Radiology/Procedures: Radiology/Procedures: [] Course & Med Decision Making: Course & Med Decision Making Pertinent Labs and Imaging studies reviewed. (See chart for details) [Acute alcohol withdrawal with nausea and tremors. No hallucinations palpitations or chest pain. Ativan, banana bag given. Hospital admission recommended due to high risk of withdrawal seizures. Patient feeling improved and request discharge home and states he is comfortable detoxing at home and will return to the ED if symptoms worsen. Will place on Librium with instructions to follow-up with outpatient rehab. Brayan Disclaimer: Brayan Disclaimer: This electronic medical record was generated, in whole or in part, using a voice recognition dictation system. Departure Departure Impression: Primary Impression: Alcohol withdrawal Disposition: HOME, SELF-CARE Condition: IMPROVED Referrals: JARED MONTEMAYOR MD (PCP) Patient Instructions: Alcohol Withdrawal, [id number], Hypomagnesemia Additional Instructions: Please fill prescription of Ativan immediately after leaving the emergency department take for symptoms of withdrawal. Follow-up with outpatient alcohol rehab. Return to the ED if new or worsening symptoms Scripts Lorazepam (ATIVAN) 2 Mg Tablet 2 MG PO Q6-8HRS PRN for ALCOHOL WITHDRAWAL, #20 TAB Prov: JACY MOODY DO 06/26/19 JACY MOODY DO June 26, 2019 10:52
[2019-06-26] MEDS ORDERED: ONDA4TAB7 PO (10:54)
[2019-06-26 11:19] VITALS: BP 175/109
[2019-06-26] MEDS ORDERED: MAGNESIUM CHLORIDE ER 64 MG TABLET.ER PO SCH (12:00)
[2019-06-26 12:50] LABS: PLT ESTIMATE INCREASED (ADEQUATE)
[2019-06-26 12:51] LABS: ANISOCYTOSIS MOD; HYPOCHROMIA MARKED; POIKILOCYTOSIS PRESENT
[2019-06-26 12:52] LABS: MICROCYTOSIS MOD
[2019-06-26 12:53] LABS: OVALOCYTES FEW
== END 2019-06-26 11:26 | disposition home or self-care (01) ==
LOC: ER 08:53
DX: F10.239 Alcohol dependence with withdrawal, unspecified (principal); R10.13 Epigastric pain; R11.0 Nausea; F41.9 Anxiety disorder, unspecified; I10 Essential (primary) hypertension; Z98.890 Other specified postprocedural states
CPT/HCPCS: 36415; 80053; 82550; 83690; 83735; 85025; 93005; 96365; 96375; 96376; 99285; J2060; J2405; J3411; J3490; J7030

== ENCOUNTER 2019-10-05 18:53 | Inpatient (IN) | payer BC ==
[~2019-10-05] VITALS: Ht 182.9 cm; Wt 88.6 kg
[~2019-10-05 18:53] MED LIST changes: +LORA2TAB89 PO; +ONDA4TAB7 PO
[2019-10-05] MEDS ORDERED: MULTIVIT INFUSN,ADULT 4,VIT K 10 ML, THIAMINE INJ 100 MG, FOLIC ACID INJ 1 MG in IV NOR... IV ONE (19:30)
[2019-10-05 19:39] LABS: BASO # 0.1 x10^3/uL (0.0-0.2); BASO % 1 % (0-3); EOS % 0 % (0-3); HEMATOCRIT 39.7 % (39.0-53.0); HEMOGLOBIN 11.3 g/dL (13.0-17.5); LYMPH # 0.2 x10^3/uL (1.0-4.8); LYMPH % 2 % (24-48); MEAN CORPUSCULAR HEMOGLOBIN 21 pg (25-35); MEAN CORPUSCULAR HGB CONC 29 g/dL (31-37); MEAN CORPUSCULAR VOLUME 72 fL (79-100); MONO # 1.1 x10^3/uL (0.0-1.1); MONO % 10 % (0-9); NEUT # 9.7 x10^3/uL (1.8-7.7); NEUT % 88 % (31-73); PLATELET COUNT 135 x10^3/uL (140-400); RED BLOOD COUNT 5.54 x10^6/uL (4.30-5.70); RED CELL DISTRIBUTION WIDTH 24.5 % (11.5-14.5); WHITE BLOOD COUNT 11.1 x10^3/uL (4.0-11.0)
[2019-10-05 19:42] LABS: CALCIUM 9.6 mg/dL (8.5-10.1); CREATININE 1.3 mg/dL (0.7-1.3); GFR 57.1; POTASSIUM 3.5 mmol/L (3.5-5.1); PROTHROMBIN TIME PATIENT 13.3 SEC (11.7-14.0)
[2019-10-05] MEDS ORDERED: METOCLOPRAMIDE HCL 10 MG/2 ML VIAL. IVP ONE (19:45)
[2019-10-05 19:47] LABS: ALBUMIN 3.9 g/dL (3.4-5.0); ALBUMIN/GLOBULIN RATIO 0.9 (1.0-1.7); MAGNESIUM 1.7 mg/dL (1.8-2.4); TOTAL BILIRUBIN 1.4 mg/dL (0.2-1.0); TOTAL PROTEIN 8.1 g/dL (6.4-8.2)
--- NOTE | 2019-10-05 20:05 | PHYS DOC ---
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 Patient is an alcoholic, he usually drinks 1 pint of of vodka daily. His last drink was last night. Patient is not sure why he stopped drinking. Patient denies any suicidal ideation. Patient fell yesterday and hit his head on the ground. Patient denies any neck pain, no chest pain, no abdominal pain. Patient feels nauseous. His called and said that he had multiple episodes of seizure today. Patient has history of alcohol withdrawal seizures in the past. Review of Systems: Review of Systems: Constitutional: Denies fever or chills. [] Eyes: Denies change in visual acuity. [] HENT: Denies nasal congestion or sore throat. [] Respiratory: Denies cough or shortness of breath. [] Cardiovascular: Denies chest pain or edema. [] GI: Positive for nausea vomiting, no abdominal pain : Denies dysuria. [] Musculoskeletal: Denies back pain or joint pain. [] Integument: Denies rash. [] Neurologic: Denies headache, focal weakness or sensory changes. Positive for seizure, shaking Endocrine: Denies polyuria or polydipsia. [] Lymphatic: Denies swollen glands. [] Psychiatric: No suicidal ideation, positive for anxiety Heart Score: Risk Factors: Risk Factors: DM, Current or recent (<one month) smoker, HTN, HLP, family history of CAD, obesity. Risk Scores: Score 0 - 3: 2.5% MACE over next 6 weeks - Discharge Home Score 4 - 6: 20.3% MACE over next 6 weeks - Admit for Clinical Observation Score 7 - 10: 72.7% MACE over next 6 weeks - Early Invasive Strategies Current Medications: Current Medications Medications (Trade) Dose Ordered Sig/Jacqueline Start Time Stop Time Status Last Admin Dose Admin Lorazepam (Ativan Inj) 2 mg 1X ONCE 10/05/19 19:30 10/05/19 19:31 DC 10/05/19 19:44 2 MG Metoclopramide HCl (Reglan Vial) 10 mg 1X ONCE 10/05/19 19:45 10/05/19 19:46 DC 10/05/19 19:43 10 MG Multivitamins 10 ml/Thiamine HCl 100 mg/Folic Acid 1 mg/Sodium Chloride 1,011.2 ml @ 1,000.088 mls/hr 1X ONCE 10/05/19 19:30 10/05/19 20:30 10/05/19 19:45 1,000.088 MLS/HR Allergies: Allergies: Allergies Coded Allergies Type Severity Reaction Last Updated Verified No Known Drug Allergies 03/20/19 No Physical Exam: PE: Constitutional: Well developed, well nourished, no acute distress, non-toxic appearance. [] HENT: Normocephalic,bilateral external ears normal, oropharynx moist, no oral exudates, nose normal. Old skin contusion on left forehead area Eyes: PERRLA, EOMI, conjunctiva normal, no discharge. [] Neck: Normal range of motion, no tenderness, supple, no stridor. [] Cardiovascular: Sinus tachycardia, no murmur Lungs & Thorax: Bilateral breath sounds clear to auscultation [] Abdomen: Bowel sounds normal, soft, no tenderness, no masses, no pulsatile masses. [] Skin: Warm, dry, no erythema, no rash. [] Back: No tenderness, no CVA tenderness. [] Extremities: No tenderness, no cyanosis, no clubbing, ROM intact, no edema. [] Neurologic: Alert and oriented X 3, normal motor function, normal sensory function, no focal deficits noted. [] Psychologic: Affect normal, judgement normal, mood normal. Very anxious and shaky. Current Patient Data: Labs: Laboratory Tests Test 10/05/19 19:16 White Blood Count 11.1 x10^3/uL (4.0-11.0) H Red Blood Count 5.54 x10^6/uL (4.30-5.70) Hemoglobin 11.3 g/dL (13.0-17.5) L Hematocrit 39.7 % (39.0-53.0) Mean Corpuscular Volume 72 fL (79-100) L Mean Corpuscular Hemoglobin 21 pg (25-35) L Mean Corpuscular Hemoglobin Concent 29 g/dL (31-37) L Red Cell Distribution Width 24.5 % (11.5-14.5) H Platelet Count 135 x10^3/uL (140-400) L Neutrophils (%) (Auto) 88 % (31-73) H Lymphocytes (%) (Auto) 2 % (24-48) L Monocytes (%) (Auto) 10 % (0-9) H Eosinophils (%) (Auto) 0 % (0-3) Basophils (%) (Auto) 1 % (0-3) Neutrophils # (Auto) 9.7 x10^3/uL (1.8-7.7) H Lymphocytes # (Auto) 0.2 x10^3/uL (1.0-4.8) L Monocytes # (Auto) 1.1 x10^3/uL (0.0-1.1) Eosinophils # (Auto) 0.0 x10^3/uL (0.0-0.7) Basophils # (Auto) 0.1 x10^3/uL (0.0-0.2) Platelet Estimate Pending Prothrombin Time 13.3 SEC (11.7-14.0) Prothrombin Time INR 1.1 (0.8-1.1) Activated Partial Thromboplast Time 26 SEC (24-38) Sodium Level 141 mmol/L (136-145) Potassium Level 3.5 mmol/L (3.5-5.1) Chloride Level 101 mmol/L (98-107) Carbon Dioxide Level 14 mmol/L (21-32) L Anion Gap 26 (6-14) H Blood Urea Nitrogen 10 mg/dL (8-26) Creatinine 1.3 mg/dL (0.7-1.3) Estimated GFR (Cockcroft-Gault) 57.1 BUN/Creatinine Ratio 8 (6-20) Glucose Level 193 mg/dL (70-99) H Calcium Level 9.6 mg/dL (8.5-10.1) Magnesium Level 1.7 mg/dL (1.8-2.4) L Total Bilirubin 1.4 mg/dL (0.2-1.0) H Aspartate Amino Transferase (AST) 119 U/L (15-37) H Alanine Aminotransferase (ALT) 119 U/L (16-63) H Alkaline Phosphatase 77 U/L (46-116) Creatine Kinase 152 U/L (39-308) Troponin I Quantitative < 0.017 ng/mL (0.000-0.055) Total Protein 8.1 g/dL (6.4-8.2) Albumin 3.9 g/dL (3.4-5.0) Albumin/Globulin Ratio 0.9 (1.0-1.7) L Ethyl Alcohol Level < 10 mg/dL (0-10) Laboratory Tests 10/05/19 19:16 Laboratory Tests 10/05/19 19:16 Vital Signs: Vital Signs Date Time Temp Pulse Resp B/P (MAP) Pulse Ox O2 Delivery O2 Flow Rate FiO2 10/05/19 19:12 98.0 135 24 188/108 (134) 100 Room Air 98.0 EKG: EKG: Interpreted by emergency department physician Rhythm: Sinus rhythm Rate: 138 Ectopy: No ectopy Conduction: Normal conduction ST Segments: [No ST segment elevation T Waves: No T wave or Q Waves: No Q waves Clinical Impression: Sinus tachycardia Radiology/Procedures: Radiology/Procedures: [][facility] [address] [place] [address] IMAGING REPORT Signed PATIENT: PASQUALE ORELLANA ACCOUNT: [id number] : 1965 LOCATION: ER AGE: 54 SEX: M EXAM STATUS: REG ER ORD. PHYSICIAN: BIJAN SMALL DO REASON: INTOXICATED, FELL, HIT HEAD TWO DAYS AGO, LEFT SIDE FACIAL INJURY PROCEDURE: CT HEAD AND MAXILLOFACIAL WO Exam: CT head and maxillofacial INDICATION: Intoxicated, fall hit head 2 days ago TECHNIQUE: Sequential axial images through the head and face were obtained without the administration of IV contrast. Comparisons: None FINDINGS: Head: No focal parenchymal lesion or hemorrhage is identified. There is no midline shift or sulcal effacement. No acute vascular territory infarction is identified. Hernandez-white distinction is preserved. The ventricular system is within normal limits without compression hydrocephalus. The basal cisterns are well maintained. Face: Mild extra cranial soft tissue scalp contusion overlying the left frontal region. Globes intradural contents are normal. The visualized portions of the paranasal sinuses and mastoid air cells are well-pneumatized. No acute fractures. IMPRESSION: 1. Mild extra soft tissue scalp contusion overlying the left frontal region without underlying osseous abnormality. 2. No acute intracranial abnormality. Exposure: One or more of the following in the visualized dose reduction techniques were utilized for this examination: 1. Automated exposure control 2. Adjustment of the MA and/or KV according to patient size Use of iterative of reconstructive technique Electronically signed by: Baldo Solis MD (10/05/2019 8:40 PM) [id number] DICTATED and SIGNED BY: BALDO SOLIS MD DATE: 10/05/192039 Course & Med Decision Making: Course & Med Decision Making Pertinent Labs and Imaging studies reviewed. (See chart for details) Patient is a 54-year-old man who was brought here from home due to seizure activity from alcohol withdrawal. Patient will be admitted to hospital for further evaluation treatment. His CT scan head and face did not show any acute problem. Dragon Disclaimer: Dragon Disclaimer: This electronic medical record was generated, in whole or in part, using a voice recognition dictation system. Departure Departure Impression: Primary Impression: Alcohol withdrawal Additional Impression: Alcohol related seizure Disposition: 09 ADMITTED INPATIENT Admitting Physician: DOLORES (DR. HOUSTON) Referrals: JARED MONTEMAYOR MD (PCP) Justicifation of Admission Dx: Justifications for Admission: Justification of Admission Dx: N/A BIJAN SMALL DO Oct 05, 2019 20:05
--- NOTE | 2019-10-05 20:11 | HP ---
ADMIT DATE: 10/05/2019 CHIEF COMPLAINT: Seizure and alcohol withdrawal. HISTORY OF PRESENT ILLNESS: The patient is a pleasant middle-aged male who had a seizure. He is drinking vodka daily about a liter a day. We have had him in before with alcohol withdrawal. I discussed the case with ER physician. It appears the patient is withdrawing. He is having seizures. He also has vomiting when I arrived. We are going to admit the patient and give him alcohol withdrawal protocol. PAST MEDICAL HISTORY: Alcoholism, previous alcohol seizures, previous GI bleed. ALLERGIES: None. FAMILY HISTORY: Alcoholism. SOCIAL HISTORY: He drinks. No smoking or drugs. MEDICATIONS: Reviewed, please refer to the MRAD. REVIEW OF SYSTEMS: GENERAL: No history of weight change, weakness or fevers. SKIN: No bruising, hair changes or rashes. EYES: No blurred, double or loss of vision. NOSE AND THROAT: No history of nosebleeds, hoarseness or sore throat. HEART: No history of palpitations, chest pain or shortness of breath on exertion. LUNGS: Denies cough, hemoptysis, wheezing or shortness of breath. GASTROINTESTINAL: He complains of abdominal pain and nausea. GENITOURINARY: No history of frequency, urgency, hesitancy or nocturia. NEUROLOGIC: He complains of weakness. PSYCHIATRIC: No history of panic, anxiety or depression. ENDOCRINE: No history of heat or cold intolerance, polyuria or polydipsia. EXTREMITIES: Denies muscle weakness, joint pain, pain on walking or stiffness. PHYSICAL EXAMINATION: VITALS: Within normal limits and are stable. GENERAL: No apparent distress. Alert and oriented. Vomiting. HEENT: Normal cephalic atraumatic, external auditory canals are patent EYES: Extraocular muscles are intact, pupils are equally round and reactive to light and accommodation MUSCULOSKELETAL: Well developed, well nourished, good range of motion ENDOCRINE: No thyromegaly was palpated LYMPHATICS: No cervical chain or axillary nodes were noted HEMATOPOIETIC: No bruising NECK: Supple, no JVD, no thyromegaly was noted. LUNGS: Clear to auscultation in all lung reno without rhonchi or wheezing. HEART: RRR, S1, S2 present. Peripheral pulses intact, no obvious murmurs were noted. ABDOMEN: He has decreased bowel sounds with some tenderness. EXTREMITIES: Without any cyanosis, clubbing, or edema. Pedal pulses intact, Homans sign is negative. NEUROLOGIC: Normal speech, normal tone. A & O x3, moves all extremities, no obvious focal deficits. PSYCHIATRIC: Normal affect, normal mood. Stable. SKIN: No ulcerations or rashes, good skin turgor, no jaundice. VASCULAR: Good capillary refill, neurovascular bundle appears to be intact. LABORATORY DATA: Alcohol level is surprisingly less than 10. IMAGING: Pending. ASSESSMENT AND PLAN: Alcohol withdrawal and seizures. The patient will be admitted. We will give him alcohol withdrawal protocol, home meds, DVT prophylaxis. Full code. IV fluids. EMILY HOUSTON DO DR: KATE/carmela JOB#: [id number] / [id number]
[2019-10-05 20:39] LABS: BILIRUBIN,URINE NEGATIVE (NEG); CLARITY,URINE CLEAR; COLOR,URINE YELLOW; NITRITE,URINE NEGATIVE (NEG); PROTEIN,URINE 100 mg/dL (NEG-TRACE); UROBILINOGEN,URINE 0.2 mg/dL (0.2 mg/dL)
--- NOTE | 2019-10-05 20:43 | RAD ---
Exam: CT head and maxillofacial INDICATION: Intoxicated, fall hit head 2 days ago TECHNIQUE: Sequential axial images through the head and face were obtained without the administration of IV contrast. Comparisons: None FINDINGS: Head: No focal parenchymal lesion or hemorrhage is identified. There is no midline shift or sulcal effacement. No acute vascular territory infarction is identified. Hernandez-white distinction is preserved. The ventricular system is within normal limits without compression hydrocephalus. The basal cisterns are well maintained. Face: Mild extra cranial soft tissue scalp contusion overlying the left frontal region. Globes intradural contents are normal. The visualized portions of the paranasal sinuses and mastoid air cells are well-pneumatized. No acute fractures. IMPRESSION: 1. Mild extra soft tissue scalp contusion overlying the left frontal region without underlying osseous abnormality. 2. No acute intracranial abnormality. Exposure: One or more of the following in the visualized dose reduction techniques were utilized for this examination: 1. Automated exposure control 2. Adjustment of the MA and/or KV according to patient size Use of iterative of reconstructive technique Electronically signed by: Baldo Whitney MD (10/05/2019 8:40 PM) [id number]
[2019-10-05 20:45] LABS: BARBITURATES NEG (NEG); BENZODIAZEPINES NEG (NEG); CANNABINOIDS NEG (NEG); COCAINE NEG (NEG); METHADONE NEG (NEG); OPIATES NEG (NEG); PHENCYCLIDINE NEG (NEG)
[2019-10-05 20:46] LABS: AMPHETAMINE/METHAMPHETAMINE NEG (NEG)
[2019-10-05 20:55] LABS: RBC,URINE OCC /HPF (0-2)
[2019-10-05 20:56] LABS: BACTERIA,URINE 0 /HPF (0-FEW); HYALINE CASTS, URINE FEW /HPF; WBC,URINE 0 /HPF (0-4)
[2019-10-05 21:02] LABS: % BASOS 1 % (0-3); % LYMPHS 3 % (24-48); % MONOS 6 % (0-10); % SEGS 90 % (35-66); PLT ESTIMATE DECREASED (ADEQUATE); POLYCHROMASIA SLIGHT
[2019-10-05 21:03] LABS: ANISOCYTOSIS MOD; HYPOCHROMIA MOD; MICROCYTOSIS MOD; OVALOCYTES OCC; POIKILOCYTOSIS SLIGHT; TEAR DROP CELLS OCC; TOXIC GRANULATION SLIGHT
[2019-10-05] MEDS ORDERED: IV NORMAL SALINE 1000ML BAG 1,000 ML IV ONE (22:00)
[2019-10-06] MEDS ORDERED: chlordiazePOXIDE HCL 25 MG CAPSULE PO ONE (03:30)
[2019-10-06] MEDS ORDERED: fentaNYL PF VIAL 100 MCG/2 ML VIAL ONE (06:34)
[2019-10-06] MEDS ORDERED: fentaNYL PF VIAL 100 MCG/2 ML VIAL IVP PRN (06:45)
--- NOTE | 2019-10-06 09:02 | PDOC ---
PROGRESS NOTES Date of Service: DATE: 10/06/19 TIME: 09:00 Chief Complaint Chief Complaint ASSESSMENT AND PLAN: Alcohol withdrawal and seizures. long hx alcohol abuse ct abd 03/13 51 x 39 mm lesser curvature gastric mass with no evidence of extension into the lesser sac or perigastric tissues.Segment 2 liver mass measuring up to 18 mm suspicious for metastasis. GIST tumor (lesser curve of stomach, benign appearance with ulcers, good margins), liver biopsy c/w steatosis admitted. alcohol withdrawal protocol, home meds, DVT prophylaxis. Full code. IV fluids. seizure precautions gi consult D/W RN 39 min pt exam, chart review, > 50% of time spent with exam, chart review, pt care coordination History of Present Illness History of Present Illness pleasant middle-aged male who had a seizure. He is drinking vodka daily about a liter a day. We have had him in before with alcohol withdrawal. I discussed the case with ER physician. It appears the patient is withdrawing. He is having seizures Vitals Vitals Vital Signs Date Time Temp Pulse Resp B/P (MAP) Pulse Ox O2 Delivery O2 Flow Rate FiO2 10/06/19 08:28 111 29 167/87 (113) 94 Room Air 10/05/19 20:27 2.0 10/05/19 19:12 98.0 98.0 Physical Exam Physical Exam ENDOCRINE: No thyromegaly was palpated LYMPHATICS: No cervical chain or axillary nodes were noted HEMATOPOIETIC: No bruising NECK: Supple, no JVD, no thyromegaly was noted. LUNGS: Clear to auscultation in all lung reno without rhonchi or wheezing. HEART: RRR, S1, S2 present. Peripheral pulses intact, no obvious murmurs were noted. ABDOMEN: He has decreased bowel sounds with some tenderness. EXTREMITIES: Without any cyanosis, clubbing, or edema. Pedal pulses intact, Homans sign is negative. NEUROLOGIC: Normal speech, normal tone. A & O x3, moves all extremities, no obvious focal deficits. PSYCHIATRIC: Normal affect, normal mood. Stable. SKIN: No ulcerations or rashes, good skin turgor, no jaundice. VASCULAR: Good capillary refill, neurovascular bundle appears to be intact. General: Cooperative, mild distress Heart: Regular rate, Normal S1 Lungs: Clear Abdomen: Soft, No tenderness Extremities: No cyanosis, No edema Skin: No breakdown Labs LABS Pre-Op Diagnosis: GIST tumor of the stomach, liver mass Post-Op Diagnosis: same Procedure Performed: Laparoscopic partial gastrectomy, liver biopsy Surgeon: Hank Houston Asst: Dr. Idris Banerjee Anesthesia Type: GETA plus local Blood Loss: 50 Specimans Obtained: GIST tumor (lesser curve of stomach, benign appearance with ulcers, good margins), liver biopsy c/w steatosis Findings: as above in specimen, fatty liver (hard, mild nodularity, yellowish color), normal gallbladder, no other pathology noted. Complications: none Operative Note: After obtaining informed consent, patient was taken to OR, induced under GETA and prepped in the usual fashion. 5 mm ports placed LUQ, epigastric and umbilical, 12 port placed LUQ, all under laparoscopic guidance. Abdominal cavity was explored and noted as above. Ligasure device was used to open the stomach on the anterior wall. GIST tumor readily identified and exposed. The ligasure was used to excise the mass completely. This was placed in bag, delivered and sent to pathology for evaluation. Pathology demonstrated good margins. Gastrotomy with then repaired longitudinally with continuous 3 0 PDS submucosal and 3 0 vicryl continuous seromuscular. Air was placed via NGT without any evidence of air leak. Liver was evaluated. No obvious mass noted readily by visualization, but hard area noted posterior segment two. This was excised with ligasure. Fairly minimal bleeding secondary to fatty liver. Hemostasis obtained with surgicel. Biopsy was sent to pathology, which demonstrated no mass, but steatosis, severe. No evidence of bleeding or pathology noted. 19 KEYA drain was placed RUQ incision and left in area of gastrotomy and secured with 3 0 nylon. Ports removed without bleeding. Fascia of LUQ port site (which was enlarge to remove mass) was repaired with 0 looped PDS. Skin repaired with 3 0 vicryl and 4 0 monocryl. Dressing placed. Patient tolerated procedure well and sent to PACU in stable condition. All counts correct. Wound class is 3. SOCRATES HOUSTON MD Mar 20, 2019 14:48 SIGNED BY: SOCRATES HOUSTON MD DATE: 03/20/19 1313 cc: JARED MONTEMAYOR MD; SOCRATES HOUSTON MD~ Lung bases are clear. Homogeneous decreased attenuation of the liver. Focal hyperintense lesion measuring 11 x 18 mm in segment 2 is present. Gallbladder unremarkable Spleen unremarkable Pancreas unremarkable Adrenal glands unremarkable Kidneys unremarkable Mild diverticuli are seen. No evidence of acute diverticulitis. Bladder is decompressed and poorly evaluated. Prostate unremarkable Lesser curvature of the stomach there is a pedunculated appearing mass in the gastric wall measuring 51 x 39 mm There is a vertical abnormal appearing fracture seen in the L2 vertebrae. IMPRESSION: 51 x 39 mm lesser curvature gastric mass with no evidence of extension into the lesser sac or perigastric tissues. Segment 2 liver mass measuring up to 18 mm suspicious for metastasis. MRI with and without contrast may be of benefit for further characterization. 10 mm gastroesophageal lymph node suspicious for pathologic lymphadenopathy. L2 vertical vertebral fracture with no definite underlying mass. MRI lumbar spine may be of benefit for further clarification. Electronically signed by: Janina Garcia MD (03/01/2019 4:27 PM) [facility] DICTATED and SIGNED BY: JANINA GARCIA MD DATE: 03/01/19 1627 Exam: CT head and maxillofacial INDICATION: Intoxicated, fall hit head 2 days ago TECHNIQUE: Sequential axial images through the head and face were obtained without the administration of IV contrast. Comparisons: None FINDINGS: Head: No focal parenchymal lesion or hemorrhage is identified. There is no midline shift or sulcal effacement. No acute vascular territory infarction is identified. Hernandez-white distinction is preserved. The ventricular system is within normal limits without compression hydrocephalus. The basal cisterns are well maintained. Face: Mild extra cranial soft tissue scalp contusion overlying the left frontal region. Globes intradural contents are normal. The visualized portions of the paranasal sinuses and mastoid air cells are well-pneumatized. No acute fractures. IMPRESSION: 1. Mild extra soft tissue scalp contusion overlying the left frontal region without underlying osseous abnormality. 2. No acute intracranial abnormality. Exposure: One or more of the following in the visualized dose reduction techniques were utilized for this examination: 1. Automated exposure control 2. Adjustment of the MA and/or KV according to patient size Use of iterative of reconstructive technique Electronically signed by: Baldo Whitney MD (10/05/2019 8:40 PM) [id number] Laboratory Tests Test 10/05/19 19:16 10/05/19 20:18 White Blood Count 11.1 x10^3/uL (4.0-11.0) Red Blood Count 5.54 x10^6/uL (4.30-5.70) Hemoglobin 11.3 g/dL (13.0-17.5) Hematocrit 39.7 % (39.0-53.0) Mean Corpuscular Volume 72 fL (79-100) Mean Corpuscular Hemoglobin 21 pg (25-35) Mean Corpuscular Hemoglobin Concent 29 g/dL (31-37) Red Cell Distribution Width 24.5 % (11.5-14.5) Platelet Count 135 x10^3/uL (140-400) Neutrophils (%) (Auto) 88 % (31-73) Lymphocytes (%) (Auto) 2 % (24-48) Monocytes (%) (Auto) 10 % (0-9) Eosinophils (%) (Auto) 0 % (0-3) Basophils (%) (Auto) 1 % (0-3) Neutrophils # (Auto) 9.7 x10^3/uL (1.8-7.7) Lymphocytes # (Auto) 0.2 x10^3/uL (1.0-4.8) Monocytes # (Auto) 1.1 x10^3/uL (0.0-1.1) Eosinophils # (Auto) 0.0 x10^3/uL (0.0-0.7) Basophils # (Auto) 0.1 x10^3/uL (0.0-0.2) Segmented Neutrophils % 90 % (35-66) Lymphocytes % 3 % (24-48) Monocytes % 6 % (0-10) Basophils % 1 % (0-3) Toxic Granulation Slight Platelet Estimate Decreased (ADEQUATE) Polychromasia Slight Hypochromasia Mod Poikilocytosis Slight Anisocytosis Mod Microcytosis Mod Tear Drop Cells Occ Ovalocytes Occ Prothrombin Time 13.3 SEC (11.7-14.0) Prothromb Time International Ratio 1.1 (0.8-1.1) Activated Partial Thromboplast Time 26 SEC (24-38) Sodium Level 141 mmol/L (136-145) Potassium Level 3.5 mmol/L (3.5-5.1) Chloride Level 101 mmol/L (98-107) Carbon Dioxide Level 14 mmol/L (21-32) Anion Gap 26 (6-14) Blood Urea Nitrogen 10 mg/dL (8-26) Creatinine 1.3 mg/dL (0.7-1.3) Estimated GFR (Cockcroft-Gault) 57.1 BUN/Creatinine Ratio 8 (6-20) Glucose Level 193 mg/dL (70-99) Calcium Level 9.6 mg/dL (8.5-10.1) Magnesium Level 1.7 mg/dL (1.8-2.4) Total Bilirubin 1.4 mg/dL (0.2-1.0) Aspartate Amino Transf (AST/SGOT) 119 U/L (15-37) Alanine Aminotransferase (ALT/SGPT) 119 U/L (16-63) Alkaline Phosphatase 77 U/L (46-116) Creatine Kinase 152 U/L (39-308) Troponin I Quantitative < 0.017 ng/mL (0.000-0.055) Total Protein 8.1 g/dL (6.4-8.2) Albumin 3.9 g/dL (3.4-5.0) Albumin/Globulin Ratio 0.9 (1.0-1.7) Ethyl Alcohol Level < 10 mg/dL (0-10) Urine Collection Type Unknown Urine Color Yellow Urine Clarity Clear Urine pH 5.0 (<5.0-8.0) Urine Specific [place] 1.020 (1.000-1.030) Urine Protein 100 mg/dL (NEG-TRACE) Urine Glucose (UA) Negative mg/dL (NEG) Urine Ketones (Stick) 15 mg/dL (NEG) Urine Blood Small (NEG) Urine Nitrite Negative (NEG) Urine Bilirubin Negative (NEG) Urine Urobilinogen Dipstick 0.2 mg/dL (0.2 mg/dL) Urine Leukocyte Esterase Negative (NEG) Urine RBC Occ /HPF (0-2) Urine WBC 0 /HPF (0-4) Urine Squamous Epithelial Cells None /LPF Urine Bacteria 0 /HPF (0-FEW) Urine Hyaline Casts Few /HPF Urine Mucus Mod /LPF Urine Opiates Screen Neg (NEG) Urine Methadone Screen Neg (NEG) Urine Barbiturates Neg (NEG) Urine Phencyclidine Screen Neg (NEG) Urine Amphetamine/Methamphetamine Neg (NEG) Urine Benzodiazepines Screen Neg (NEG) Urine Cocaine Screen Neg (NEG) Urine Cannabinoids Screen Neg (NEG) Urine Ethyl Alcohol Neg (NEG) Comment Review of Relevant I have reviewed the following items lana (where applicable) has been applied. Labs Laboratory Tests Test 10/05/19 19:16 10/05/19 20:18 White Blood Count 11.1 x10^3/uL (4.0-11.0) Red Blood Count 5.54 x10^6/uL (4.30-5.70) Hemoglobin 11.3 g/dL (13.0-17.5) Hematocrit 39.7 % (39.0-53.0) Mean Corpuscular Volume 72 fL (79-100) Mean Corpuscular Hemoglobin 21 pg (25-35) Mean Corpuscular Hemoglobin Concent 29 g/dL (31-37) Red Cell Distribution Width 24.5 % (11.5-14.5) Platelet Count 135 x10^3/uL (140-400) Neutrophils (%) (Auto) 88 % (31-73) Lymphocytes (%) (Auto) 2 % (24-48) Monocytes (%) (Auto) 10 % (0-9) Eosinophils (%) (Auto) 0 % (0-3) Basophils (%) (Auto) 1 % (0-3) Neutrophils # (Auto) 9.7 x10^3/uL (1.8-7.7) Lymphocytes # (Auto) 0.2 x10^3/uL (1.0-4.8) Monocytes # (Auto) 1.1 x10^3/uL (0.0-1.1) Eosinophils # (Auto) 0.0 x10^3/uL (0.0-0.7) Basophils # (Auto) 0.1 x10^3/uL (0.0-0.2) Segmented Neutrophils % 90 % (35-66) Lymphocytes % 3 % (24-48) Monocytes % 6 % (0-10) Basophils % 1 % (0-3) Toxic Granulation Slight Platelet Estimate Decreased (ADEQUATE) Polychromasia Slight Hypochromasia Mod Poikilocytosis Slight Anisocytosis Mod Microcytosis Mod Tear Drop Cells Occ Ovalocytes Occ Prothrombin Time 13.3 SEC (11.7-14.0) Prothromb Time International Ratio 1.1 (0.8-1.1) Activated Partial Thromboplast Time 26 SEC (24-38) Sodium Level 141 mmol/L (136-145) Potassium Level 3.5 mmol/L (3.5-5.1) Chloride Level 101 mmol/L (98-107) Carbon Dioxide Level 14 mmol/L (21-32) Anion Gap 26 (6-14) Blood Urea Nitrogen 10 mg/dL (8-26) Creatinine 1.3 mg/dL (0.7-1.3) Estimated GFR (Cockcroft-Gault) 57.1 BUN/Creatinine Ratio 8 (6-20) Glucose Level 193 mg/dL (70-99) Calcium Level 9.6 mg/dL (8.5-10.1) Magnesium Level 1.7 mg/dL (1.8-2.4) Total Bilirubin 1.4 mg/dL (0.2-1.0) Aspartate Amino Transf (AST/SGOT) 119 U/L (15-37) Alanine Aminotransferase (ALT/SGPT) 119 U/L (16-63) Alkaline Phosphatase 77 U/L (46-116) Creatine Kinase 152 U/L (39-308) Troponin I Quantitative < 0.017 ng/mL (0.000-0.055) Total Protein 8.1 g/dL (6.4-8.2) Albumin 3.9 g/dL (3.4-5.0) Albumin/Globulin Ratio 0.9 (1.0-1.7) Ethyl Alcohol Level < 10 mg/dL (0-10) Urine Collection Type Unknown Urine Color Yellow Urine Clarity Clear Urine pH 5.0 (<5.0-8.0) Urine Specific [place] 1.020 (1.000-1.030) Urine Protein 100 mg/dL (NEG-TRACE) Urine Glucose (UA) Negative mg/dL (NEG) Urine Ketones (Stick) 15 mg/dL (NEG) Urine Blood Small (NEG) Urine Nitrite Negative (NEG) Urine Bilirubin Negative (NEG) Urine Urobilinogen Dipstick 0.2 mg/dL (0.2 mg/dL) Urine Leukocyte Esterase Negative (NEG) Urine RBC Occ /HPF (0-2) Urine WBC 0 /HPF (0-4) Urine Squamous Epithelial Cells None /LPF Urine Bacteria 0 /HPF (0-FEW) Urine Hyaline Casts Few /HPF Urine Mucus Mod /LPF Urine Opiates Screen Neg (NEG) Urine Methadone Screen Neg (NEG) Urine Barbiturates Neg (NEG) Urine Phencyclidine Screen Neg (NEG) Urine Amphetamine/Methamphetamine Neg (NEG) Urine Benzodiazepines Screen Neg (NEG) Urine Cocaine Screen Neg (NEG) Urine Cannabinoids Screen Neg (NEG) Urine Ethyl Alcohol Neg (NEG) Laboratory Tests Test 10/05/19 19:16 10/05/19 20:18 White Blood Count 11.1 x10^3/uL (4.0-11.0) Red Blood Count 5.54 x10^6/uL (4.30-5.70) Hemoglobin 11.3 g/dL (13.0-17.5) Hematocrit 39.7 % (39.0-53.0) Mean Corpuscular Volume 72 fL (79-100) Mean Corpuscular Hemoglobin 21 pg (25-35) Mean Corpuscular Hemoglobin Concent 29 g/dL (31-37) Red Cell Distribution Width 24.5 % (11.5-14.5) Platelet Count 135 x10^3/uL (140-400) Neutrophils (%) (Auto) 88 % (31-73) Lymphocytes (%) (Auto) 2 % (24-48) Monocytes (%) (Auto) 10 % (0-9) Eosinophils (%) (Auto) 0 % (0-3) Basophils (%) (Auto) 1 % (0-3) Neutrophils # (Auto) 9.7 x10^3/uL (1.8-7.7) Lymphocytes # (Auto) 0.2 x10^3/uL (1.0-4.8) Monocytes # (Auto) 1.1 x10^3/uL (0.0-1.1) Eosinophils # (Auto) 0.0 x10^3/uL (0.0-0.7) Basophils # (Auto) 0.1 x10^3/uL (0.0-0.2) Segmented Neutrophils % 90 % (35-66) Lymphocytes % 3 % (24-48) Monocytes % 6 % (0-10) Basophils % 1 % (0-3) Toxic Granulation Slight Platelet Estimate Decreased (ADEQUATE) Polychromasia Slight Hypochromasia Mod Poikilocytosis Slight Anisocytosis Mod Microcytosis Mod Tear Drop Cells Occ Ovalocytes Occ Prothrombin Time 13.3 SEC (11.7-14.0) Prothromb Time International Ratio 1.1 (0.8-1.1) Activated Partial Thromboplast Time 26 SEC (24-38) Sodium Level 141 mmol/L (136-145) Potassium Level 3.5 mmol/L (3.5-5.1) Chloride Level 101 mmol/L (98-107) Carbon Dioxide Level 14 mmol/L (21-32) Anion Gap 26 (6-14) Blood Urea Nitrogen 10 mg/dL (8-26) Creatinine 1.3 mg/dL (0.7-1.3) Estimated GFR (Cockcroft-Gault) 57.1 BUN/Creatinine Ratio 8 (6-20) Glucose Level 193 mg/dL (70-99) Calcium Level 9.6 mg/dL (8.5-10.1) Magnesium Level 1.7 mg/dL (1.8-2.4) Total Bilirubin 1.4 mg/dL (0.2-1.0) Aspartate Amino Transf (AST/SGOT) 119 U/L (15-37) Alanine Aminotransferase (ALT/SGPT) 119 U/L (16-63) Alkaline Phosphatase 77 U/L (46-116) Creatine Kinase 152 U/L (39-308) Troponin I Quantitative < 0.017 ng/mL (0.000-0.055) Total Protein 8.1 g/dL (6.4-8.2) Albumin 3.9 g/dL (3.4-5.0) Albumin/Globulin Ratio 0.9 (1.0-1.7) Ethyl Alcohol Level < 10 mg/dL (0-10) Urine Collection Type Unknown Urine Color Yellow Urine Clarity Clear Urine pH 5.0 (<5.0-8.0) Urine Specific [place] 1.020 (1.000-1.030) Urine Protein 100 mg/dL (NEG-TRACE) Urine Glucose (UA) Negative mg/dL (NEG) Urine Ketones (Stick) 15 mg/dL (NEG) Urine Blood Small (NEG) Urine Nitrite Negative (NEG) Urine Bilirubin Negative (NEG) Urine Urobilinogen Dipstick 0.2 mg/dL (0.2 mg/dL) Urine Leukocyte Esterase Negative (NEG) Urine RBC Occ /HPF (0-2) Urine WBC 0 /HPF (0-4) Urine Squamous Epithelial Cells None /LPF Urine Bacteria 0 /HPF (0-FEW) Urine Hyaline Casts Few /HPF Urine Mucus Mod /LPF Urine Opiates Screen Neg (NEG) Urine Methadone Screen Neg (NEG) Urine Barbiturates Neg (NEG) Urine Phencyclidine Screen Neg (NEG) Urine Amphetamine/Methamphetamine Neg (NEG) Urine Benzodiazepines Screen Neg (NEG) Urine Cocaine Screen Neg (NEG) Urine Cannabinoids Screen Neg (NEG) Urine Ethyl Alcohol Neg (NEG) Medications Current Medications Lorazepam (Ativan Inj) 2 mg 1X ONCE IVP Last administered on 10/05/19at 19:44; Start 10/05/19 at 19:30; Stop 10/05/19 at 19:31; Status DC Multivitamins 10 ml/Thiamine HCl 100 mg/Folic Acid 1 mg/Sodium Chloride 1,011.2 ml @ 1,000.088 mls/hr 1X ONCE IV Last administered on 10/05/19at 19:45; Start 10/05/19 at 19:30; Stop 10/05/19 at 20:30; Status DC Metoclopramide HCl (Reglan Vial) 10 mg 1X ONCE IVP Last administered on 10/05/19at 19:43; Start 10/05/19 at 19:45; Stop 10/05/19 at 19:46; Status DC Multivitamins 10 ml/Thiamine HCl 100 mg/Folic Acid 1 mg/Sodium Chloride 1,011.2 ml @ 100 mls/ hr DAILY IV ; Start 10/06/19 at 09:00; Stop 10/09/19 at 19:07 Thiamine HCl 100 mg/Dextrose 51 ml @ 100 mls/hr DAILY IV ; Start 10/10/19 at 09:00; Stop 10/14/19 at 09:31 Lorazepam (Ativan Inj) 2 mg PRN Q1HR PRN IV For CIWA 8-14 Last administered on 10/06/19at 05:00; Start 10/05/19 at 20:15; Stop 10/06/19 at 06:44; Status DC Lorazepam (Ativan Inj) 2 mg 1X ONCE IVP Last administered on 10/05/19at 20:51; Start 10/05/19 at 20:15; Stop 10/05/19 at 20:27; Status DC Sodium Chloride 1,000 ml @ 1,000 mls/hr 1X ONCE IV Last administered on 10/05/19at 21:49; Start 10/05/19 at 22:00; Stop 10/05/19 at 22:59; Status DC Chlordiazepoxide (Librium) 50 mg 1X ONCE PO Last administered on 10/06/19at 03:50; Start 10/06/19 at 03:30; Stop 10/06/19 at 03:31; Status DC Fentanyl Citrate (Fentanyl 2ml Vial) 100 mcg STK-MED ONCE .ROUTE ; Start 10/06/19 at 06:34; Stop 10/06/19 at 06:35; Status DC Lorazepam (Ativan Inj) 2 mg PRN Q1HR PRN IV For CIWA 8-14; Start 10/06/19 at 06:45 Lorazepam (Ativan Inj) 4 mg PRN Q1HR PRN IV For CIWA 15 or greater Last administered on 10/06/19at 07:29; Start 10/06/19 at 06:45 Haloperidol Lactate (Haldol Inj) 5 mg PRN Q4HRS PRN IVP Hallucinatns ,Confusn,Delirium; Start 10/06/19 at 06:45 Fentanyl Citrate (Fentanyl 2ml Vial) 50 mcg PRN Q1HR PRN IVP SEVERE PAIN 7-10 Last administered on 10/06/19at 06:43; Start 10/06/19 at 06:45 Active Scripts Active Zofran (Ondansetron Hcl) 4 Mg Tablet 1 Tab PO Q6HRS Ativan (Lorazepam) 2 Mg Tablet 2 Mg PO Q6-8HRS PRN Reported No Known Medications Prior To Admisstion (Info) Each 1 Each 1X Vitals/I & O Vital Sign - Last 24 Hours 10/05/19 10/05/19 10/05/19 10/05/19 19:12 19:25 19:55 20:27 Temp 98.0 98.0 Pulse 135 146 130 134 Resp 24 22 24 22 B/P (MAP) 188/108 (134) 195/124 (147) 199/124 (149) 187/110 (135) Pulse Ox 100 100 97 99 O2 Delivery Room Air Room Air Nasal Cannula O2 Flow Rate 2.0 10/05/19 10/05/19 10/05/19 10/05/19 20:55 21:34 22:33 22:52 Pulse 135 130 118 135 Resp 31 28 31 22 B/P (MAP) 188/121 (143) 187/90 (122) 196/89 (124) 192/101 (131) Pulse Ox 97 95 95 95 O2 Delivery Room Air Room Air Room Air Room Air 10/06/19 10/06/19 10/06/19 10/06/19 00:53 02:08 03:24 04:24 Pulse 122 138 126 114 Resp 24 22 B/P (MAP) 173/98 (123) 172/103 (126) 176/99 (124) 187/102 (130) Pulse Ox 97 95 95 95 O2 Delivery Room Air Room Air Room Air Room Air 10/06/19 10/06/19 10/06/19 10/06/19 05:24 06:43 07:32 08:28 Pulse 110 104 111 Resp 22 25 29 B/P (MAP) 157/107 (124) 143/90 (107) 167/87 (113) Pulse Ox 94 91 94 O2 Delivery Room Air Room Air Room Air Room Air Intake and Output 10/05/19 10/05/19 10/06/19 15:00 23:00 07:00 Intake Total 1000 ml Balance 1000 ml Justicifation of Admission Dx: Justifications for Admission: Justification of Admission Dx: N/A CEDRIC EAGLE MD Oct 06, 2019 09:02
[2019-10-06] MEDS: MULTIVIT INFUSN,ADULT 4,VIT K 10 ML, THIAMINE INJ 100 MG, FOLIC ACID INJ 1 MG in IV NOR... IV SCH (09:18)
[2019-10-06] MEDS: HALOPERIDOL LACTATE 5 MG/ML VIAL. IVP PRN ×2 (09:19→16:39)
--- NOTE | 2019-10-06 15:28 | PDOC2 ---
GI CONSULT Date of Service: DATE: 10/06/19 TIME: 15:16 Reason For Consult: severe alcohol abuse, GIST tumor HPI: HPI: 54 y/o male to ER w/ withdrawal seizures. No meaningful information from him. 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 Houston - margins negative). EGD and colonoscopy in 01/2019 showed gastric mass (GIST), diverticulosis, hemorrhoids. Past imaging and liver biopsy c/w hepatic steatosis (biopsy negative for malignancy - had pre-op CT w/ liver mass). No GB or pancreas history. PMH: PMH: per HPI and left ankle fracture FH: Family History: No pertinent hx Social History: ALCOHOL: heavy ROS: Unable to obtain. Vitals: Vitals: Vital Signs Date Time Temp Pulse Resp B/P (MAP) Pulse Ox O2 Delivery O2 Flow Rate FiO2 10/06/19 13:33 130 31 148/95 (112) 94 Room Air 10/05/19 20:27 2.0 10/05/19 19:12 98.0 98.0 Labs: Labs: Laboratory Tests Test 10/05/19 19:16 10/05/19 20:18 White Blood Count 11.1 x10^3/uL (4.0-11.0) Red Blood Count 5.54 x10^6/uL (4.30-5.70) Hemoglobin 11.3 g/dL (13.0-17.5) Hematocrit 39.7 % (39.0-53.0) Mean Corpuscular Volume 72 fL (79-100) Mean Corpuscular Hemoglobin 21 pg (25-35) Mean Corpuscular Hemoglobin Concent 29 g/dL (31-37) Red Cell Distribution Width 24.5 % (11.5-14.5) Platelet Count 135 x10^3/uL (140-400) Neutrophils (%) (Auto) 88 % (31-73) Lymphocytes (%) (Auto) 2 % (24-48) Monocytes (%) (Auto) 10 % (0-9) Eosinophils (%) (Auto) 0 % (0-3) Basophils (%) (Auto) 1 % (0-3) Neutrophils # (Auto) 9.7 x10^3/uL (1.8-7.7) Lymphocytes # (Auto) 0.2 x10^3/uL (1.0-4.8) Monocytes # (Auto) 1.1 x10^3/uL (0.0-1.1) Eosinophils # (Auto) 0.0 x10^3/uL (0.0-0.7) Basophils # (Auto) 0.1 x10^3/uL (0.0-0.2) Segmented Neutrophils % 90 % (35-66) Lymphocytes % 3 % (24-48) Monocytes % 6 % (0-10) Basophils % 1 % (0-3) Toxic Granulation Slight Platelet Estimate Decreased (ADEQUATE) Polychromasia Slight Hypochromasia Mod Poikilocytosis Slight Anisocytosis Mod Microcytosis Mod Tear Drop Cells Occ Ovalocytes Occ Prothrombin Time 13.3 SEC (11.7-14.0) Prothromb Time International Ratio 1.1 (0.8-1.1) Activated Partial Thromboplast Time 26 SEC (24-38) Sodium Level 141 mmol/L (136-145) Potassium Level 3.5 mmol/L (3.5-5.1) Chloride Level 101 mmol/L (98-107) Carbon Dioxide Level 14 mmol/L (21-32) Anion Gap 26 (6-14) Blood Urea Nitrogen 10 mg/dL (8-26) Creatinine 1.3 mg/dL (0.7-1.3) Estimated GFR (Cockcroft-Gault) 57.1 BUN/Creatinine Ratio 8 (6-20) Glucose Level 193 mg/dL (70-99) Calcium Level 9.6 mg/dL (8.5-10.1) Magnesium Level 1.7 mg/dL (1.8-2.4) Total Bilirubin 1.4 mg/dL (0.2-1.0) Aspartate Amino Transf (AST/SGOT) 119 U/L (15-37) Alanine Aminotransferase (ALT/SGPT) 119 U/L (16-63) Alkaline Phosphatase 77 U/L (46-116) Creatine Kinase 152 U/L (39-308) Troponin I Quantitative < 0.017 ng/mL (0.000-0.055) Total Protein 8.1 g/dL (6.4-8.2) Albumin 3.9 g/dL (3.4-5.0) Albumin/Globulin Ratio 0.9 (1.0-1.7) Ethyl Alcohol Level < 10 mg/dL (0-10) Urine Collection Type Unknown Urine Color Yellow Urine Clarity Clear Urine pH 5.0 (<5.0-8.0) Urine Specific [place] 1.020 (1.000-1.030) Urine Protein 100 mg/dL (NEG-TRACE) Urine Glucose (UA) Negative mg/dL (NEG) Urine Ketones (Stick) 15 mg/dL (NEG) Urine Blood Small (NEG) Urine Nitrite Negative (NEG) Urine Bilirubin Negative (NEG) Urine Urobilinogen Dipstick 0.2 mg/dL (0.2 mg/dL) Urine Leukocyte Esterase Negative (NEG) Urine RBC Occ /HPF (0-2) Urine WBC 0 /HPF (0-4) Urine Squamous Epithelial Cells None /LPF Urine Bacteria 0 /HPF (0-FEW) Urine Hyaline Casts Few /HPF Urine Mucus Mod /LPF Urine Opiates Screen Neg (NEG) Urine Methadone Screen Neg (NEG) Urine Barbiturates Neg (NEG) Urine Phencyclidine Screen Neg (NEG) Urine Amphetamine/Methamphetamine Neg (NEG) Urine Benzodiazepines Screen Neg (NEG) Urine Cocaine Screen Neg (NEG) Urine Cannabinoids Screen Neg (NEG) Urine Ethyl Alcohol Neg (NEG) Allergies: Coded Allergies: No Known Drug Allergies (Unverified , 03/20/19) Medications: Current Medications Medications (Trade) Dose Ordered Sig/Jacqueline Route PRN Reason Start Time Stop Time Status Last Admin Dose Admin Lorazepam (Ativan Inj) 2 mg 1X ONCE IVP 10/05/19 19:30 10/05/19 19:31 DC 10/05/19 19:44 Multivitamins 10 ml/Thiamine HCl 100 mg/Folic Acid 1 mg/Sodium Chloride 1,011.2 ml @ 1,000.088 mls/hr 1X ONCE IV 10/05/19 19:30 10/05/19 20:30 DC 10/05/19 19:45 Metoclopramide HCl (Reglan Vial) 10 mg 1X ONCE IVP 10/05/19 19:45 10/05/19 19:46 DC 10/05/19 19:43 Multivitamins 10 ml/Thiamine HCl 100 mg/Folic Acid 1 mg/Sodium Chloride 1,011.2 ml @ 100 mls/ hr DAILY IV 10/06/19 09:00 10/09/19 19:07 10/06/19 09:18 Lorazepam (Ativan Inj) 2 mg PRN Q1HR PRN IV For CIWA 8-14 10/05/19 20:15 10/06/19 06:44 DC 10/06/19 05:00 Lorazepam (Ativan Inj) 2 mg 1X ONCE IVP 10/05/19 20:15 10/05/19 20:27 DC 10/05/19 20:51 Sodium Chloride 1,000 ml @ 1,000 mls/hr 1X ONCE IV 10/05/19 22:00 10/05/19 22:59 DC 10/05/19 21:49 Chlordiazepoxide (Librium) 50 mg 1X ONCE PO 10/06/19 03:30 10/06/19 03:31 DC 10/06/19 03:50 Lorazepam (Ativan Inj) 2 mg PRN Q1HR PRN IV For CIWA 8-14 10/06/19 06:45 10/06/19 14:42 Lorazepam (Ativan Inj) 4 mg PRN Q1HR PRN IV For CIWA 15 or greater 10/06/19 06:45 10/06/19 11:22 Haloperidol Lactate (Haldol Inj) 5 mg PRN Q4HRS PRN IVP Hallucinatns,Confusn,Delirium 10/06/19 06:45 10/06/19 09:19 Fentanyl Citrate (Fentanyl 2ml Vial) 50 mcg PRN Q1HR PRN IVP SEVERE PAIN 7-10 10/06/19 06:45 10/06/19 06:43 Imaging: Imaging: Head/Facial Bones CT IMPRESSION: 1. Mild extra soft tissue scalp contusion overlying the left frontal region without underlying osseous abnormality. 2. No acute intracranial abnormality. PE: GEN: NAD HEENT: Atraumatic, PERRL LUNGS: CTAB HEART: tachycardic ABD: NABS, S/ND/NT EXTREMITY: No edema SKIN: No rashes, no jaundice NEURO/PSYCH: confused, trying to get out of bed A/P: A/P: Alcohol withdrawal/seizures Microcytic anemia (h/o MAIA), thrombocytopenia, elevated LFTs H/o GIST s/p resection 02/2019 CRC screen - UTD (01/2019) Diverticulosis, hemorrhoids Hepatic steatosis -- Withdrawal treatment per Dr. Phillips. JESSICA MAYEN Oct 06, 2019 15:28
[2019-10-06 15:40] VITALS: BP 146/100
--- NOTE | 2019-10-06 15:46 | NUR ---
pt admitted to room 510. rails padded per seizure precautions. pt not able to answer any admission questions. no family present. pt only able to state his first name.
[2019-10-06] MEDS: PANTOPRAZOLE IV PUSH 40 MG VIAL. IVP SCH (15:58)
--- NOTE | 2019-10-06 16:18 | EKG ---
[facility] [address] [place] [address] Test Date: 2019-10-05 Test Time: 19:08:16 Pat Name: PASQUALE ORELLANA Department: Room: 510 Gender: M Transport Medic: : 1965 Requested By: BIJAN SMALL Order Number: [id number] Reading MD: Measurements Intervals [place] Rate: 138 P: 207 NC: 94 QRS: -14 QRSD: 90 T: 10 QT: 284 QTc: 437 Interpretive Statements SUPRAVENTRICULAR TACHYCARDIA LEFTWARD AXIS R-S TRANSITION ZONE IN V LEADS DISPLACED TO THE LEFT NO SPECIFIC ECG ABNORMALITIES RI6.02 No previous ECG available for comparison
[2019-10-06 19:00] VITALS: BP 155/112
[2019-10-06 23:00] VITALS: BP 155/114
[2019-10-06] MEDS ORDERED: hydrALAZINE 20 MG/ML VIAL. IVP PRN (23:30)
[2019-10-06] MEDS ORDERED: POTASSIUM CL 20MEQ D5-0.45NACL 1,000 ML IV SCH (23:30)
[2019-10-06] MEDS ORDERED: hydrALAZINE 20 MG/ML VIAL. IVP ONE (23:45)
[2019-10-07] MEDS: HALOPERIDOL LACTATE 5 MG/ML VIAL. IVP PRN ×2 (01:27→22:50)
[2019-10-07 03:00] VITALS: BP 143/94
[2019-10-07 07:00] VITALS: BP 127/97
[2019-10-07 07:08] LABS: BASO # 0.1 x10^3/uL (0.0-0.2); BASO % 1 % (0-3); EOS % 0 % (0-3); HEMOGLOBIN 10.8 g/dL (13.0-17.5); LYMPH # 1.9 x10^3/uL (1.0-4.8); LYMPH % 22 % (24-48); MEAN CORPUSCULAR HEMOGLOBIN 20 pg (25-35); MEAN CORPUSCULAR HGB CONC 30 g/dL (31-37); MEAN CORPUSCULAR VOLUME 68 fL (79-100); MONO # 0.9 x10^3/uL (0.0-1.1); MONO % 11 % (0-9); NEUT # 5.6 x10^3/uL (1.8-7.7); NEUT % 66 % (31-73); PLATELET COUNT 83 x10^3/uL (140-400); RED BLOOD COUNT 5.32 x10^6/uL (4.30-5.70); RED CELL DISTRIBUTION WIDTH 24.7 % (11.5-14.5); WHITE BLOOD COUNT 8.5 x10^3/uL (4.0-11.0)
[2019-10-07 07:11] LABS: ALBUMIN 3.1 g/dL (3.4-5.0); ALBUMIN/GLOBULIN RATIO 0.9 (1.0-1.7); CALCIUM 8.4 mg/dL (8.5-10.1); CREATININE 0.8 mg/dL (0.7-1.3); TOTAL BILIRUBIN 1.3 mg/dL (0.2-1.0); TOTAL PROTEIN 6.7 g/dL (6.4-8.2)
[2019-10-07 07:17] LABS: POTASSIUM 2.7 mmol/L (3.5-5.1)
[2019-10-07] MEDS: POTASSIUM CHLORIDE 10MEQ 100 ML IV SCH ×4 (08:07→14:15)
[2019-10-07 08:33] LABS: % BANDS 1 % (0-9); % BASOS 1 % (0-3); % LYMPHS 18 % (24-48); % MONOS 8 % (0-10); % SEGS 72 % (35-66)
[2019-10-07 08:34] LABS: ANISOCYTOSIS PRESENT; HYPOCHROMIA PRESENT; MICROCYTOSIS SLIGHT; PLT ESTIMATE DECREASED (ADEQUATE); POIKILOCYTOSIS PRESENT; POLYCHROMASIA PRESENT
[2019-10-07] MEDS: PANTOPRAZOLE IV PUSH 40 MG VIAL. IVP SCH (08:36)
--- NOTE | 2019-10-07 10:18 | PDOC ---
PROGRESS NOTES Date of Service: DATE: 10/07/19 TIME: 10:18 Chief Complaint Chief Complaint ASSESSMENT AND PLAN: Alcohol withdrawal and seizures. long hx alcohol abuse ct abd 03/13 51 x 39 mm lesser curvature gastric mass with no evidence of extension into the lesser sac or perigastric tissues.Segment 2 liver mass measuring up to 18 mm suspicious for metastasis. GIST tumor (lesser curve of stomach, benign appearance with ulcers, good margins), liver biopsy c/w steatosis admitted. alcohol withdrawal protocol, home meds, DVT prophylaxis. Full code. IV fluids. seizure precautions gi consult D/W RN 36 min pt exam, chart review, > 50% of time spent with exam, chart review, pt care coordination History of Present Illness History of Present Illness pleasant middle-aged male who had a seizure. He is drinking vodka daily about a liter a day. We have had him in before with alcohol withdrawal. I discussed the case with ER physician. It appears the patient is withdrawing. He is having seizures Vitals Vitals Vital Signs Date Time Temp Pulse Resp B/P (MAP) Pulse Ox O2 Delivery O2 Flow Rate FiO2 10/07/19 07:00 98.6 114 20 127/97 (107) 97 Room Air 98.6 Physical Exam Physical Exam ENDOCRINE: No thyromegaly was palpated LYMPHATICS: No cervical chain or axillary nodes were noted HEMATOPOIETIC: No bruising NECK: Supple, no JVD, no thyromegaly was noted. LUNGS: Clear to auscultation in all lung reno without rhonchi or wheezing. HEART: RRR, S1, S2 present. Peripheral pulses intact, no obvious murmurs were noted. ABDOMEN: He has decreased bowel sounds with some tenderness. EXTREMITIES: Without any cyanosis, clubbing, or edema. Pedal pulses intact, Homans sign is negative. NEUROLOGIC: Normal speech, normal tone. A & O x3, moves all extremities, no obvious focal deficits. PSYCHIATRIC: Normal affect, normal mood. Stable. SKIN: No ulcerations or rashes, good skin turgor, no jaundice. VASCULAR: Good capillary refill, neurovascular bundle appears to be intact. General: Cooperative, No acute distress Heart: Regular rate, Normal S1 Lungs: Clear Abdomen: Normal bowel sounds, Soft, No tenderness, No masses Extremities: No cyanosis, No edema Skin: No breakdown, No significant lesion Labs LABS One or more of the following individualized dose reduction techniques were utilized for this examination: 1. Automated exposure control 2. Adjustment of the mA and/or kV according to patient size 3. Use of iterative reconstruction technique Comparison: None FINDINGS: Lung bases are clear. Homogeneous decreased attenuation of the liver. Focal hyperintense lesion measuring 11 x 18 mm in segment 2 is present. Gallbladder unremarkable Spleen unremarkable Pancreas unremarkable Adrenal glands unremarkable Kidneys unremarkable Mild diverticuli are seen. No evidence of acute diverticulitis. Bladder is decompressed and poorly evaluated. Prostate unremarkable Lesser curvature of the stomach there is a pedunculated appearing mass in the gastric wall measuring 51 x 39 mm There is a vertical abnormal appearing fracture seen in the L2 vertebrae. IMPRESSION: 51 x 39 mm lesser curvature gastric mass with no evidence of extension into the lesser sac or perigastric tissues. Segment 2 liver mass measuring up to 18 mm suspicious for metastasis. MRI with and without contrast may be of benefit for further characterization. 10 mm gastroesophageal lymph node suspicious for pathologic lymphadenopathy. L2 vertical vertebral fracture with no definite underlying mass. MRI lumbar spine may be of benefit for further clarification. Electronically signed by: Janina Hernández MD (03/01/2019 4:27 PM) [place] [id number] DICTATED and SIGNED BY: JANINA HERNÁNDEZ MD Laboratory Tests Test 10/07/19 05:40 White Blood Count 8.5 x10^3/uL (4.0-11.0) Red Blood Count 5.32 x10^6/uL (4.30-5.70) Hemoglobin 10.8 g/dL (13.0-17.5) Hematocrit 36.0 % (39.0-53.0) Mean Corpuscular Volume 68 fL (79-100) Mean Corpuscular Hemoglobin 20 pg (25-35) Mean Corpuscular Hemoglobin Concent 30 g/dL (31-37) Red Cell Distribution Width 24.7 % (11.5-14.5) Platelet Count 83 x10^3/uL (140-400) Neutrophils (%) (Auto) 66 % (31-73) Lymphocytes (%) (Auto) 22 % (24-48) Monocytes (%) (Auto) 11 % (0-9) Eosinophils (%) (Auto) 0 % (0-3) Basophils (%) (Auto) 1 % (0-3) Neutrophils # (Auto) 5.6 x10^3/uL (1.8-7.7) Lymphocytes # (Auto) 1.9 x10^3/uL (1.0-4.8) Monocytes # (Auto) 0.9 x10^3/uL (0.0-1.1) Eosinophils # (Auto) 0.0 x10^3/uL (0.0-0.7) Basophils # (Auto) 0.1 x10^3/uL (0.0-0.2) Segmented Neutrophils % 72 % (35-66) Band Neutrophils % 1 % (0-9) Lymphocytes % 18 % (24-48) Monocytes % 8 % (0-10) Basophils % 1 % (0-3) Platelet Estimate Decreased (ADEQUATE) Large Platelets Present Giant Platelets Present Polychromasia Present Hypochromasia Present Poikilocytosis Present Anisocytosis Present Microcytosis Slight Sodium Level 141 mmol/L (136-145) Potassium Level 2.7 mmol/L (3.5-5.1) Chloride Level 104 mmol/L (98-107) Carbon Dioxide Level 22 mmol/L (21-32) Anion Gap 15 (6-14) Blood Urea Nitrogen 5 mg/dL (8-26) Creatinine 0.8 mg/dL (0.7-1.3) Estimated GFR (Cockcroft-Gault) 100.0 BUN/Creatinine Ratio 6 (6-20) Glucose Level 103 mg/dL (70-99) Calcium Level 8.4 mg/dL (8.5-10.1) Total Bilirubin 1.3 mg/dL (0.2-1.0) Aspartate Amino Transf (AST/SGOT) 83 U/L (15-37) Alanine Aminotransferase (ALT/SGPT) 88 U/L (16-63) Alkaline Phosphatase 63 U/L (46-116) Total Protein 6.7 g/dL (6.4-8.2) Albumin 3.1 g/dL (3.4-5.0) Albumin/Globulin Ratio 0.9 (1.0-1.7) Comment Review of Relevant I have reviewed the following items lana (where applicable) has been applied. Labs Laboratory Tests Test 10/05/19 19:16 10/05/19 20:18 10/07/19 05:40 White Blood Count 11.1 x10^3/uL (4.0-11.0) 8.5 x10^3/uL (4.0-11.0) Red Blood Count 5.54 x10^6/uL (4.30-5.70) 5.32 x10^6/uL (4.30-5.70) Hemoglobin 11.3 g/dL (13.0-17.5) 10.8 g/dL (13.0-17.5) Hematocrit 39.7 % (39.0-53.0) 36.0 % (39.0-53.0) Mean Corpuscular Volume 72 fL (79-100) 68 fL (79-100) Mean Corpuscular Hemoglobin 21 pg (25-35) 20 pg (25-35) Mean Corpuscular Hemoglobin Concent 29 g/dL (31-37) 30 g/dL (31-37) Red Cell Distribution Width 24.5 % (11.5-14.5) 24.7 % (11.5-14.5) Platelet Count 135 x10^3/uL (140-400) 83 x10^3/uL (140-400) Neutrophils (%) (Auto) 88 % (31-73) 66 % (31-73) Lymphocytes (%) (Auto) 2 % (24-48) 22 % (24-48) Monocytes (%) (Auto) 10 % (0-9) 11 % (0-9) Eosinophils (%) (Auto) 0 % (0-3) 0 % (0-3) Basophils (%) (Auto) 1 % (0-3) 1 % (0-3) Neutrophils # (Auto) 9.7 x10^3/uL (1.8-7.7) 5.6 x10^3/uL (1.8-7.7) Lymphocytes # (Auto) 0.2 x10^3/uL (1.0-4.8) 1.9 x10^3/uL (1.0-4.8) Monocytes # (Auto) 1.1 x10^3/uL (0.0-1.1) 0.9 x10^3/uL (0.0-1.1) Eosinophils # (Auto) 0.0 x10^3/uL (0.0-0.7) 0.0 x10^3/uL (0.0-0.7) Basophils # (Auto) 0.1 x10^3/uL (0.0-0.2) 0.1 x10^3/uL (0.0-0.2) Segmented Neutrophils % 90 % (35-66) 72 % (35-66) Lymphocytes % 3 % (24-48) 18 % (24-48) Monocytes % 6 % (0-10) 8 % (0-10) Basophils % 1 % (0-3) 1 % (0-3) Toxic Granulation Slight Platelet Estimate Decreased (ADEQUATE) Decreased (ADEQUATE) Polychromasia Slight Present Hypochromasia Mod Present Poikilocytosis Slight Present Anisocytosis Mod Present Microcytosis Mod Slight Tear Drop Cells Occ Ovalocytes Occ Prothrombin Time 13.3 SEC (11.7-14.0) Prothromb Time International Ratio 1.1 (0.8-1.1) Activated Partial Thromboplast Time 26 SEC (24-38) Sodium Level 141 mmol/L (136-145) 141 mmol/L (136-145) Potassium Level 3.5 mmol/L (3.5-5.1) 2.7 mmol/L (3.5-5.1) Chloride Level 101 mmol/L (98-107) 104 mmol/L (98-107) Carbon Dioxide Level 14 mmol/L (21-32) 22 mmol/L (21-32) Anion Gap 26 (6-14) 15 (6-14) Blood Urea Nitrogen 10 mg/dL (8-26) 5 mg/dL (8-26) Creatinine 1.3 mg/dL (0.7-1.3) 0.8 mg/dL (0.7-1.3) Estimated GFR (Cockcroft-Gault) 57.1 100.0 BUN/Creatinine Ratio 8 (6-20) 6 (6-20) Glucose Level 193 mg/dL (70-99) 103 mg/dL (70-99) Calcium Level 9.6 mg/dL (8.5-10.1) 8.4 mg/dL (8.5-10.1) Magnesium Level 1.7 mg/dL (1.8-2.4) Total Bilirubin 1.4 mg/dL (0.2-1.0) 1.3 mg/dL (0.2-1.0) Aspartate Amino Transf (AST/SGOT) 119 U/L (15-37) 83 U/L (15-37) Alanine Aminotransferase (ALT/SGPT) 119 U/L (16-63) 88 U/L (16-63) Alkaline Phosphatase 77 U/L (46-116) 63 U/L (46-116) Creatine Kinase 152 U/L (39-308) Troponin I Quantitative < 0.017 ng/mL (0.000-0.055) Total Protein 8.1 g/dL (6.4-8.2) 6.7 g/dL (6.4-8.2) Albumin 3.9 g/dL (3.4-5.0) 3.1 g/dL (3.4-5.0) Albumin/Globulin Ratio 0.9 (1.0-1.7) 0.9 (1.0-1.7) Ethyl Alcohol Level < 10 mg/dL (0-10) Urine Collection Type Unknown Urine Color Yellow Urine Clarity Clear Urine pH 5.0 (<5.0-8.0) Urine Specific [place] 1.020 (1.000-1.030) Urine Protein 100 mg/dL (NEG-TRACE) Urine Glucose (UA) Negative mg/dL (NEG) Urine Ketones (Stick) 15 mg/dL (NEG) Urine Blood Small (NEG) Urine Nitrite Negative (NEG) Urine Bilirubin Negative (NEG) Urine Urobilinogen Dipstick 0.2 mg/dL (0.2 mg/dL) Urine Leukocyte Esterase Negative (NEG) Urine RBC Occ /HPF (0-2) Urine WBC 0 /HPF (0-4) Urine Squamous Epithelial Cells None /LPF Urine Bacteria 0 /HPF (0-FEW) Urine Hyaline Casts Few /HPF Urine Mucus Mod /LPF Urine Opiates Screen Neg (NEG) Urine Methadone Screen Neg (NEG) Urine Barbiturates Neg (NEG) Urine Phencyclidine Screen Neg (NEG) Urine Amphetamine/Methamphetamine Neg (NEG) Urine Benzodiazepines Screen Neg (NEG) Urine Cocaine Screen Neg (NEG) Urine Cannabinoids Screen Neg (NEG) Urine Ethyl Alcohol Neg (NEG) Band Neutrophils % 1 % (0-9) Large Platelets Present Giant Platelets Present Laboratory Tests Test 10/07/19 05:40 White Blood Count 8.5 x10^3/uL (4.0-11.0) Red Blood Count 5.32 x10^6/uL (4.30-5.70) Hemoglobin 10.8 g/dL (13.0-17.5) Hematocrit 36.0 % (39.0-53.0) Mean Corpuscular Volume 68 fL (79-100) Mean Corpuscular Hemoglobin 20 pg (25-35) Mean Corpuscular Hemoglobin Concent 30 g/dL (31-37) Red Cell Distribution Width 24.7 % (11.5-14.5) Platelet Count 83 x10^3/uL (140-400) Neutrophils (%) (Auto) 66 % (31-73) Lymphocytes (%) (Auto) 22 % (24-48) Monocytes (%) (Auto) 11 % (0-9) Eosinophils (%) (Auto) 0 % (0-3) Basophils (%) (Auto) 1 % (0-3) Neutrophils # (Auto) 5.6 x10^3/uL (1.8-7.7) Lymphocytes # (Auto) 1.9 x10^3/uL (1.0-4.8) Monocytes # (Auto) 0.9 x10^3/uL (0.0-1.1) Eosinophils # (Auto) 0.0 x10^3/uL (0.0-0.7) Basophils # (Auto) 0.1 x10^3/uL (0.0-0.2) Segmented Neutrophils % 72 % (35-66) Band Neutrophils % 1 % (0-9) Lymphocytes % 18 % (24-48) Monocytes % 8 % (0-10) Basophils % 1 % (0-3) Platelet Estimate Decreased (ADEQUATE) Large Platelets Present Giant Platelets Present Polychromasia Present Hypochromasia Present Poikilocytosis Present Anisocytosis Present Microcytosis Slight Sodium Level 141 mmol/L (136-145) Potassium Level 2.7 mmol/L (3.5-5.1) Chloride Level 104 mmol/L (98-107) Carbon Dioxide Level 22 mmol/L (21-32) Anion Gap 15 (6-14) Blood Urea Nitrogen 5 mg/dL (8-26) Creatinine 0.8 mg/dL (0.7-1.3) Estimated GFR (Cockcroft-Gault) 100.0 BUN/Creatinine Ratio 6 (6-20) Glucose Level 103 mg/dL (70-99) Calcium Level 8.4 mg/dL (8.5-10.1) Total Bilirubin 1.3 mg/dL (0.2-1.0) Aspartate Amino Transf (AST/SGOT) 83 U/L (15-37) Alanine Aminotransferase (ALT/SGPT) 88 U/L (16-63) Alkaline Phosphatase 63 U/L (46-116) Total Protein 6.7 g/dL (6.4-8.2) Albumin 3.1 g/dL (3.4-5.0) Albumin/Globulin Ratio 0.9 (1.0-1.7) Medications Current Medications Lorazepam (Ativan Inj) 2 mg 1X ONCE IVP Last administered on 10/05/19at 19:44; Start 10/05/19 at 19:30; Stop 10/05/19 at 19:31; Status DC Multivitamins 10 ml/Thiamine HCl 100 mg/Folic Acid 1 mg/Sodium Chloride 1,011.2 ml @ 1,000.088 mls/hr 1X ONCE IV Last administered on 10/05/19at 19:45; Start 10/05/19 at 19:30; Stop 10/05/19 at 20:30; Status DC Metoclopramide HCl (Reglan Vial) 10 mg 1X ONCE IVP Last administered on 10/05/19at 19:43; Start 10/05/19 at 19:45; Stop 10/05/19 at 19:46; Status DC Multivitamins 10 ml/Thiamine HCl 100 mg/Folic Acid 1 mg/Sodium Chloride 1,011.2 ml @ 100 mls/ hr DAILY IV Last administered on 10/06/19at 09:18; Start 10/06/19 at 09:00; Stop 10/09/19 at 19:07 Thiamine HCl 100 mg/Dextrose 51 ml @ 100 mls/hr DAILY IV ; Start 10/10/19 at 09:00; Stop 10/14/19 at 09:31 Lorazepam (Ativan Inj) 2 mg PRN Q1HR PRN IV For CIWA 8-14 Last administered on 10/06/19at 05:00; Start 10/05/19 at 20:15; Stop 10/06/19 at 06:44; Status DC Lorazepam (Ativan Inj) 2 mg 1X ONCE IVP Last administered on 10/05/19at 20:51; Start 10/05/19 at 20:15; Stop 10/05/19 at 20:27; Status DC Sodium Chloride 1,000 ml @ 1,000 mls/hr 1X ONCE IV Last administered on 10/05/19at 21:49; Start 10/05/19 at 22:00; Stop 10/05/19 at 22:59; Status DC Chlordiazepoxide (Librium) 50 mg 1X ONCE PO Last administered on 10/06/19at 03:50; Start 10/06/19 at 03:30; Stop 10/06/19 at 03:31; Status DC Fentanyl Citrate (Fentanyl 2ml Vial) 100 mcg STK-MED ONCE .ROUTE ; Start 10/06/19 at 06:34; Stop 10/06/19 at 06:35; Status DC Lorazepam (Ativan Inj) 2 mg PRN Q1HR PRN IV For CIWA 8-14 Last administered on 10/06/19at 14:42; Start 10/06/19 at 06:45 Lorazepam (Ativan Inj) 4 mg PRN Q1HR PRN IV For CIWA 15 or greater Last administered on 10/07/19at 08:35; Start 10/06/19 at 06:45 Haloperidol Lactate (Haldol Inj) 5 mg PRN Q4HRS PRN IVP Hallucinatns,Confusn,Delirium Last administered on 10/07/19at 01:27; Start 10/06/19 at 06:45 Fentanyl Citrate (Fentanyl 2ml Vial) 50 mcg PRN Q1HR PRN IVP SEVERE PAIN 7-10 Last administered on 10/06/19at 06:43; Start 10/06/19 at 06:45 Pantoprazole Sodium (PROTONIX VIAL for IV PUSH) 40 mg DAILYAC IVP Last administered on 10/07/19at 08:36; Start 10/06/19 at 16:30 Hydralazine HCl (Apresoline Inj) 10 mg 1X ONCE IVP Last administered on 10/07/19at 00:57; Start 10/06/19 at 23:45; Stop 10/06/19 at 23:46; Status DC Hydralazine HCl (Apresoline Inj) 10 mg PRN Q4HRS PRN IVP ELEVATED BP, SEE COMMENTS; Start 10/06/19 at 23:30 Potassium Chloride/Dextrose/ Sod Cl 1,000 ml @ 100 mls/hr Q10H IV Last administered on 10/07/19at 00:51; Start 10/06/19 at 23:30; Stop 10/07/19 at 09:29; Status DC Potassium Chloride/Water 100 ml @ 100 mls/hr Q1H IV Last administered on 10/07/19at 08:07; Start 10/07/19 at 08:00; Stop 10/07/19 at 11:59 Active Scripts Active Zofran (Ondansetron Hcl) 4 Mg Tablet 1 Tab PO Q6HRS Ativan (Lorazepam) 2 Mg Tablet 2 Mg PO Q6-8HRS PRN Reported No Known Medications Prior To Admisstion (Info) Each 1 Each 1X Vitals/I & O Vital Sign - Last 24 Hours 10/06/19 10/06/19 10/06/19 10/06/19 10:28 11:31 12:27 13:33 Pulse 124 107 112 130 Resp 29 31 34 31 B/P (MAP) 189/86 (120) 148/84 (105) 182/109 (133) 148/95 (112) Pulse Ox 97 92 94 94 O2 Delivery Room Air Room Air Room Air Room Air 10/06/19 10/06/19 10/06/19 10/06/19 15:40 16:00 19:00 19:20 Temp 98.0 97.9 98.0 97.9 Pulse 118 107 Resp 20 20 B/P (MAP) 146/100 (115) 155/112 (126) Pulse Ox 96 94 O2 Delivery Room Air Room Air Room Air Room Air 10/06/19 10/07/19 10/07/19 10/07/19 23:00 00:57 03:00 07:00 Temp 97.8 97.9 98.6 97.8 97.9 98.6 Pulse 109 109 121 114 Resp 20 20 20 B/P (MAP) 155/114 (128) 155/114 143/94 (110) 127/97 (107) Pulse Ox 93 92 97 O2 Delivery Room Air Room Air Room Air Intake and Output 10/06/19 10/06/19 10/07/19 15:00 23:00 07:00 Intake Total 0 ml 0 ml Output Total 650 ml Balance -650 ml 0 ml 0 ml Justicifation of Admission Dx: Justifications for Admission: Justification of Admission Dx: N/A CEDRIC EAGLE MD Oct 07, 2019 10:18
[2019-10-07 11:00] VITALS: BP 132/100
[2019-10-07] MEDS: MULTIVIT INFUSN,ADULT 4,VIT K 10 ML, THIAMINE INJ 100 MG, FOLIC ACID INJ 1 MG in IV NOR... IV SCH (14:16)
[2019-10-07 15:21] VITALS: BP 154/100
[2019-10-07 19:00] VITALS: BP 138/95
[2019-10-07 23:00] VITALS: BP 154/111
--- NOTE | 2019-10-08 00:01 | RAD ---
CT MAXILLOFACIAL WO CONTRAST Indication: mandible dislocation Comparison study: CT 10/05/2019. Technique: Noncontrast CT of the maxillofacial region was performed in the axial plane. Sagittal and coronal reconstructions were performed. One or more of the following dose reduction techniques were utilized: Automated exposure control (AEC), Adjustment of mA and/or kV according to patient size, Use of iterative reconstruction technique such as ASiR, CT scan done according to ALARA and image gently/image wisely Findings: Bilateral anterior displacement of the condylar heads without of the mandibular fossa and onto the condylar eminence. No acute facial bone fracture. No acute osseous abnormalities are detected. The orbital marquez are intact. The zygomatic arches are intact. The nasal bones are intact. The pterygoids are intact. The mandible is intact. Visualized portions of the paranasal sinuses are well-aerated. Nasal septum is deviated to the right. The visualized mastoid air cells are clear. The orbits and globes are normal. The visualized aerodigestive tract is unremarkable. The brain is not well evaluated due to technique. IMPRESSION: Bilateral anterior temporomandibular joint dislocations. Electronically signed by: Philippe Rogers MD (10/07/2019 11:58 PM) [facility]
--- NOTE | 2019-10-08 02:12 | NUR ---
PT REMAIN ALERT AND ORIENT TIMES THREE. C/O ITCHING ON HANDS AND FEET, BENEDRYL CREAM APPLIED. VSS, AFEBRILE. DENIES SOB, NAUSEA AND PAIN. SLEEPY BUT EASY TO AROUSE. SLOW PROGRESS TOWARDS DC GOALS, WILL CONTINUE TO MONITOR. Addendum: 10/08/19 at 0219 by NALINI KHAN RN RN DELETE ABOVE NOTE, WROTE ON INCORRECT PT.
--- NOTE | 2019-10-08 02:23 | NUR ---
PT REMAINS ALERT TIMES THREE BUT CAN BE FORGETFUL AT TIMES. DID ON OCCASION USE HIS CALL BUTTON FOR ASSISTANCE. ACCORDING TO THE TECH, PT TRIED TO GET OOB TO USE THE URINAL BUT WAS TOO WEAK AND FELL ON THE FLOOR. HOUSE SUP WAS NOTIFIED. PT DID NOT INJURE HIMSELF, NO BRUISING NOR OPEN SKIN NOTED. PT STATE THAT HE WAS "OK" AND DID NOT HIT HIS HEAD. THE BED ALARM WAS SET AT THE TIME. ST PER MONITOR. BP ELEVATED. CIWA RANGE FROM 7-15. ATIVAN AND HALDOL WAS EFFECTIVE. PT IS NOW SLEEPING AND HOURLY CHECKS DONE. AN IV WAS PLACED IN RIGHT FOREARM, IVF CONTINUES. SLOW PROGRESS TOWARDS DC GOALS, WILL CONTINUE TO MONITOR.
[2019-10-08] MEDS: HALOPERIDOL LACTATE 5 MG/ML VIAL. IVP PRN (03:02)
[2019-10-08 03:07] VITALS: BP 154/101
[2019-10-08 07:00] VITALS: BP 138/100
[2019-10-08 07:42] LABS: BASO # 0.1 x10^3/uL (0.0-0.2); BASO % 1 % (0-3); EOS # 0.1 x10^3/uL (0.0-0.7); EOS % 1 % (0-3); HEMATOCRIT 36.5 % (39.0-53.0); HEMOGLOBIN 10.9 g/dL (13.0-17.5); LYMPH # 2.2 x10^3/uL (1.0-4.8); LYMPH % 27 % (24-48); MEAN CORPUSCULAR HEMOGLOBIN 21 pg (25-35); MEAN CORPUSCULAR HGB CONC 30 g/dL (31-37); MEAN CORPUSCULAR VOLUME 69 fL (79-100); MONO # 0.9 x10^3/uL (0.0-1.1); MONO % 12 % (0-9); NEUT # 4.8 x10^3/uL (1.8-7.7); NEUT % 59 % (31-73); PLATELET COUNT 102 x10^3/uL (140-400); RED BLOOD COUNT 5.28 x10^6/uL (4.30-5.70); RED CELL DISTRIBUTION WIDTH 23.6 % (11.5-14.5); WHITE BLOOD COUNT 8.1 x10^3/uL (4.0-11.0)
[2019-10-08 07:48] LABS: ALBUMIN 2.9 g/dL (3.4-5.0); ALBUMIN/GLOBULIN RATIO 0.8 (1.0-1.7); CALCIUM 8.1 mg/dL (8.5-10.1); GFR 77.3; POTASSIUM 3.2 mmol/L (3.5-5.1); TOTAL BILIRUBIN 1.1 mg/dL (0.2-1.0); TOTAL PROTEIN 6.6 g/dL (6.4-8.2)
[2019-10-08] MEDS: MULTIVIT INFUSN,ADULT 4,VIT K 10 ML, THIAMINE INJ 100 MG, FOLIC ACID INJ 1 MG in IV NOR... IV SCH (10:12)
[2019-10-08] MEDS: PANTOPRAZOLE IV PUSH 40 MG VIAL. IVP SCH (10:13)
--- NOTE | 2019-10-08 10:50 | PDOC ---
PROGRESS NOTES Date of Service: DATE: 10/08/19 TIME: 10:48 Chief Complaint Chief Complaint ASSESSMENT AND PLAN: Alcohol withdrawal and seizures. long hx alcohol abuse ct abd 03/13 51 x 39 mm lesser curvature gastric mass with no evidence of extension into the lesser sac or perigastric tissues.Segment 2 liver mass measuring up to 18 mm suspicious for metastasis. GIST tumor (lesser curve of stomach, benign appearance with ulcers, good margins), liver biopsy c/w steatosis Bilateral anterior temporomandibular joint dislocations. 10/07 admitted. alcohol withdrawal protocol, home meds, DVT prophylaxis. Full code. IV fluids. seizure precautions gi consult ENT CONSULT done D/W RN 37 min pt exam, chart review, > 50% of time spent with exam, chart review, pt care coordination History of Present Illness History of Present Illness pleasant middle-aged male who had a seizure. He is drinking vodka daily about a liter a day. We have had him in before with alcohol withdrawal. I discussed the case with ER physician. It appears the patient is withdrawing. He is having seizures Vitals Vitals Vital Signs Date Time Temp Pulse Resp B/P (MAP) Pulse Ox O2 Delivery O2 Flow Rate FiO2 10/08/19 07:00 97.6 94 18 138/100 (113) 95 Room Air 97.6 10/07/19 20:00 2.0 Physical Exam Physical Exam ENDOCRINE: No thyromegaly was palpated LYMPHATICS: No cervical chain or axillary nodes were noted HEMATOPOIETIC: No bruising NECK: Supple, no JVD, no thyromegaly was noted. LUNGS: Clear to auscultation in all lung reno without rhonchi or wheezing. HEART: RRR, S1, S2 present. Peripheral pulses intact, no obvious murmurs were noted. ABDOMEN: He has decreased bowel sounds with some tenderness. EXTREMITIES: Without any cyanosis, clubbing, or edema. Pedal pulses intact, Homans sign is negative. NEUROLOGIC: Normal speech, normal tone. A & O x3, moves all extremities, no obvious focal deficits. PSYCHIATRIC: Normal affect, normal mood. Stable. SKIN: No ulcerations or rashes, good skin turgor, no jaundice. VASCULAR: Good capillary refill, neurovascular bundle appears to be intact. General: Cooperative, No acute distress Heart: Regular rate, Normal S1 Lungs: Clear Abdomen: Normal bowel sounds, Soft, No tenderness, No masses Extremities: No cyanosis, No edema Skin: No breakdown, No significant lesion Labs LABS CT MAXILLOFACIAL WO CONTRAST Indication: mandible dislocation Comparison study: CT 10/05/2019. Technique: Noncontrast CT of the maxillofacial region was performed in the axial plane. Sagittal and coronal reconstructions were performed. One or more of the following dose reduction techniques were utilized: Automated exposure control (AEC), Adjustment of mA and/or kV according to patient size, Use of iterative reconstruction technique such as ASiR, CT scan done according to ALARA and image gently/image wisely Findings: Bilateral anterior displacement of the condylar heads without of the mandibular fossa and onto the condylar eminence. No acute facial bone fracture. No acute osseous abnormalities are detected. The orbital marquez are intact. The zygomatic arches are intact. The nasal bones are intact. The pterygoids are intact. The mandible is intact. Visualized portions of the paranasal sinuses are well-aerated. Nasal septum is deviated to the right. The visualized mastoid air cells are clear. The orbits and globes are normal. The visualized aerodigestive tract is unremarkable. The brain is not well evaluated due to technique. IMPRESSION: Bilateral anterior temporomandibular joint dislocations. Electronically signed by: Vladimir Dobbins MD (10/07/2019 11:58 PM) [facility] DICTATED and SIGNED BY: VLADIMIR DOBBINS MD DATE: 10/07/19 6632 Laboratory Tests Test 10/08/19 05:40 White Blood Count 8.1 x10^3/uL (4.0-11.0) Red Blood Count 5.28 x10^6/uL (4.30-5.70) Hemoglobin 10.9 g/dL (13.0-17.5) Hematocrit 36.5 % (39.0-53.0) Mean Corpuscular Volume 69 fL (79-100) Mean Corpuscular Hemoglobin 21 pg (25-35) Mean Corpuscular Hemoglobin Concent 30 g/dL (31-37) Red Cell Distribution Width 23.6 % (11.5-14.5) Platelet Count 102 x10^3/uL (140-400) Neutrophils (%) (Auto) 59 % (31-73) Lymphocytes (%) (Auto) 27 % (24-48) Monocytes (%) (Auto) 12 % (0-9) Eosinophils (%) (Auto) 1 % (0-3) Basophils (%) (Auto) 1 % (0-3) Neutrophils # (Auto) 4.8 x10^3/uL (1.8-7.7) Lymphocytes # (Auto) 2.2 x10^3/uL (1.0-4.8) Monocytes # (Auto) 0.9 x10^3/uL (0.0-1.1) Eosinophils # (Auto) 0.1 x10^3/uL (0.0-0.7) Basophils # (Auto) 0.1 x10^3/uL (0.0-0.2) Sodium Level 142 mmol/L (136-145) Potassium Level 3.2 mmol/L (3.5-5.1) Chloride Level 106 mmol/L (98-107) Carbon Dioxide Level 24 mmol/L (21-32) Anion Gap 12 (6-14) Blood Urea Nitrogen 7 mg/dL (8-26) Creatinine 1.0 mg/dL (0.7-1.3) Estimated GFR (Cockcroft-Gault) 77.3 BUN/Creatinine Ratio 7 (6-20) Glucose Level 76 mg/dL (70-99) Calcium Level 8.1 mg/dL (8.5-10.1) Total Bilirubin 1.1 mg/dL (0.2-1.0) Aspartate Amino Transf (AST/SGOT) 89 U/L (15-37) Alanine Aminotransferase (ALT/SGPT) 78 U/L (16-63) Alkaline Phosphatase 61 U/L (46-116) Total Protein 6.6 g/dL (6.4-8.2) Albumin 2.9 g/dL (3.4-5.0) Albumin/Globulin Ratio 0.8 (1.0-1.7) Comment Review of Relevant I have reviewed the following items lana (where applicable) has been applied. Labs Laboratory Tests Test 10/07/19 05:40 10/08/19 05:40 White Blood Count 8.5 x10^3/uL (4.0-11.0) 8.1 x10^3/uL (4.0-11.0) Red Blood Count 5.32 x10^6/uL (4.30-5.70) 5.28 x10^6/uL (4.30-5.70) Hemoglobin 10.8 g/dL (13.0-17.5) 10.9 g/dL (13.0-17.5) Hematocrit 36.0 % (39.0-53.0) 36.5 % (39.0-53.0) Mean Corpuscular Volume 68 fL (79-100) 69 fL (79-100) Mean Corpuscular Hemoglobin 20 pg (25-35) 21 pg (25-35) Mean Corpuscular Hemoglobin Concent 30 g/dL (31-37) 30 g/dL (31-37) Red Cell Distribution Width 24.7 % (11.5-14.5) 23.6 % (11.5-14.5) Platelet Count 83 x10^3/uL (140-400) 102 x10^3/uL (140-400) Neutrophils (%) (Auto) 66 % (31-73) 59 % (31-73) Lymphocytes (%) (Auto) 22 % (24-48) 27 % (24-48) Monocytes (%) (Auto) 11 % (0-9) 12 % (0-9) Eosinophils (%) (Auto) 0 % (0-3) 1 % (0-3) Basophils (%) (Auto) 1 % (0-3) 1 % (0-3) Neutrophils # (Auto) 5.6 x10^3/uL (1.8-7.7) 4.8 x10^3/uL (1.8-7.7) Lymphocytes # (Auto) 1.9 x10^3/uL (1.0-4.8) 2.2 x10^3/uL (1.0-4.8) Monocytes # (Auto) 0.9 x10^3/uL (0.0-1.1) 0.9 x10^3/uL (0.0-1.1) Eosinophils # (Auto) 0.0 x10^3/uL (0.0-0.7) 0.1 x10^3/uL (0.0-0.7) Basophils # (Auto) 0.1 x10^3/uL (0.0-0.2) 0.1 x10^3/uL (0.0-0.2) Segmented Neutrophils % 72 % (35-66) Band Neutrophils % 1 % (0-9) Lymphocytes % 18 % (24-48) Monocytes % 8 % (0-10) Basophils % 1 % (0-3) Platelet Estimate Decreased (ADEQUATE) Large Platelets Present Giant Platelets Present Polychromasia Present Hypochromasia Present Poikilocytosis Present Anisocytosis Present Microcytosis Slight Sodium Level 141 mmol/L (136-145) 142 mmol/L (136-145) Potassium Level 2.7 mmol/L (3.5-5.1) 3.2 mmol/L (3.5-5.1) Chloride Level 104 mmol/L (98-107) 106 mmol/L (98-107) Carbon Dioxide Level 22 mmol/L (21-32) 24 mmol/L (21-32) Anion Gap 15 (6-14) 12 (6-14) Blood Urea Nitrogen 5 mg/dL (8-26) 7 mg/dL (8-26) Creatinine 0.8 mg/dL (0.7-1.3) 1.0 mg/dL (0.7-1.3) Estimated GFR (Cockcroft-Gault) 100.0 77.3 BUN/Creatinine Ratio 6 (6-20) 7 (6-20) Glucose Level 103 mg/dL (70-99) 76 mg/dL (70-99) Calcium Level 8.4 mg/dL (8.5-10.1) 8.1 mg/dL (8.5-10.1) Total Bilirubin 1.3 mg/dL (0.2-1.0) 1.1 mg/dL (0.2-1.0) Aspartate Amino Transf (AST/SGOT) 83 U/L (15-37) 89 U/L (15-37) Alanine Aminotransferase (ALT/SGPT) 88 U/L (16-63) 78 U/L (16-63) Alkaline Phosphatase 63 U/L (46-116) 61 U/L (46-116) Total Protein 6.7 g/dL (6.4-8.2) 6.6 g/dL (6.4-8.2) Albumin 3.1 g/dL (3.4-5.0) 2.9 g/dL (3.4-5.0) Albumin/Globulin Ratio 0.9 (1.0-1.7) 0.8 (1.0-1.7) Laboratory Tests Test 10/08/19 05:40 White Blood Count 8.1 x10^3/uL (4.0-11.0) Red Blood Count 5.28 x10^6/uL (4.30-5.70) Hemoglobin 10.9 g/dL (13.0-17.5) Hematocrit 36.5 % (39.0-53.0) Mean Corpuscular Volume 69 fL (79-100) Mean Corpuscular Hemoglobin 21 pg (25-35) Mean Corpuscular Hemoglobin Concent 30 g/dL (31-37) Red Cell Distribution Width 23.6 % (11.5-14.5) Platelet Count 102 x10^3/uL (140-400) Neutrophils (%) (Auto) 59 % (31-73) Lymphocytes (%) (Auto) 27 % (24-48) Monocytes (%) (Auto) 12 % (0-9) Eosinophils (%) (Auto) 1 % (0-3) Basophils (%) (Auto) 1 % (0-3) Neutrophils # (Auto) 4.8 x10^3/uL (1.8-7.7) Lymphocytes # (Auto) 2.2 x10^3/uL (1.0-4.8) Monocytes # (Auto) 0.9 x10^3/uL (0.0-1.1) Eosinophils # (Auto) 0.1 x10^3/uL (0.0-0.7) Basophils # (Auto) 0.1 x10^3/uL (0.0-0.2) Sodium Level 142 mmol/L (136-145) Potassium Level 3.2 mmol/L (3.5-5.1) Chloride Level 106 mmol/L (98-107) Carbon Dioxide Level 24 mmol/L (21-32) Anion Gap 12 (6-14) Blood Urea Nitrogen 7 mg/dL (8-26) Creatinine 1.0 mg/dL (0.7-1.3) Estimated GFR (Cockcroft-Gault) 77.3 BUN/Creatinine Ratio 7 (6-20) Glucose Level 76 mg/dL (70-99) Calcium Level 8.1 mg/dL (8.5-10.1) Total Bilirubin 1.1 mg/dL (0.2-1.0) Aspartate Amino Transf (AST/SGOT) 89 U/L (15-37) Alanine Aminotransferase (ALT/SGPT) 78 U/L (16-63) Alkaline Phosphatase 61 U/L (46-116) Total Protein 6.6 g/dL (6.4-8.2) Albumin 2.9 g/dL (3.4-5.0) Albumin/Globulin Ratio 0.8 (1.0-1.7) Medications Current Medications Lorazepam (Ativan Inj) 2 mg 1X ONCE IVP Last administered on 10/05/19at 19:44; Start 10/05/19 at 19:30; Stop 10/05/19 at 19:31; Status DC Multivitamins 10 ml/Thiamine HCl 100 mg/Folic Acid 1 mg/Sodium Chloride 1,011.2 ml @ 1,000.088 mls/hr 1X ONCE IV Last administered on 10/05/19at 19:45; Start 10/05/19 at 19:30; Stop 10/05/19 at 20:30; Status DC Metoclopramide HCl (Reglan Vial) 10 mg 1X ONCE IVP Last administered on 10/05/19at 19:43; Start 10/05/19 at 19:45; Stop 10/05/19 at 19:46; Status DC Multivitamins 10 ml/Thiamine HCl 100 mg/Folic Acid 1 mg/Sodium Chloride 1,011.2 ml @ 100 mls/ hr DAILY IV Last administered on 10/08/19at 10:12; Start 10/06/19 at 09:00; Stop 10/09/19 at 19:07 Thiamine HCl 100 mg/Dextrose 51 ml @ 100 mls/hr DAILY IV ; Start 10/10/19 at 09:00; Stop 10/14/19 at 09:31 Lorazepam (Ativan Inj) 2 mg PRN Q1HR PRN IV For CIWA 8-14 Last administered on 10/06/19at 05:00; Start 10/05/19 at 20:15; Stop 10/06/19 at 06:44; Status DC Lorazepam (Ativan Inj) 2 mg 1X ONCE IVP Last administered on 10/05/19at 20:51; Start 10/05/19 at 20:15; Stop 10/05/19 at 20:27; Status DC Sodium Chloride 1,000 ml @ 1,000 mls/hr 1X ONCE IV Last administered on 10/05/19at 21:49; Start 10/05/19 at 22:00; Stop 10/05/19 at 22:59; Status DC Chlordiazepoxide (Librium) 50 mg 1X ONCE PO Last administered on 10/06/19at 03:50; Start 10/06/19 at 03:30; Stop 10/06/19 at 03:31; Status DC Fentanyl Citrate (Fentanyl 2ml Vial) 100 mcg STK-MED ONCE .ROUTE ; Start 10/06/19 at 06:34; Stop 10/06/19 at 06:35; Status DC Lorazepam (Ativan Inj) 2 mg PRN Q1HR PRN IV For CIWA 8-14 Last administered on 10/06/19at 14:42; Start 10/06/19 at 06:45 Lorazepam (Ativan Inj) 4 mg PRN Q1HR PRN IV For CIWA 15 or greater Last administered on 10/08/19at 03:05; Start 10/06/19 at 06:45 Haloperidol Lactate (Haldol Inj) 5 mg PRN Q4HRS PRN IVP Hallucinatns,Confusn,Delirium Last administered on 10/08/19at 03:02; Start 10/06/19 at 06:45 Fentanyl Citrate (Fentanyl 2ml Vial) 50 mcg PRN Q1HR PRN IVP SEVERE PAIN 7-10 Last administered on 10/06/19at 06:43; Start 10/06/19 at 06:45 Pantoprazole Sodium (PROTONIX VIAL for IV PUSH) 40 mg DAILYAC IVP Last administered on 10/08/19at 10:13; Start 10/06/19 at 16:30 Hydralazine HCl (Apresoline Inj) 10 mg 1X ONCE IVP Last administered on 10/07/19at 00:57; Start 10/06/19 at 23:45; Stop 10/06/19 at 23:46; Status DC Hydralazine HCl (Apresoline Inj) 10 mg PRN Q4HRS PRN IVP ELEVATED BP, SEE COMMENTS; Start 10/06/19 at 23:30 Potassium Chloride/Dextrose/ Sod Cl 1,000 ml @ 100 mls/hr Q10H IV Last adminis tered on 10/07/19at 00:51; Start 10/06/19 at 23:30; Stop 10/07/19 at 09:29; Status DC Potassium Chloride/Water 100 ml @ 100 mls/hr Q1H IV Last administered on 10/07/19at 14:15; Start 10/07/19 at 08:00; Stop 10/07/19 at 11:59; Status DC Active Scripts Active Zofran (Ondansetron Hcl) 4 Mg Tablet 1 Tab PO Q6HRS Ativan (Lorazepam) 2 Mg Tablet 2 Mg PO Q6-8HRS PRN Reported No Known Medications Prior To Admisstion (Info) Each 1 Each 1X Vitals/I & O Vital Sign - Last 24 Hours 10/07/19 10/07/19 10/07/19 10/07/19 11:00 15:21 19:00 20:00 Temp 99.4 99.0 98.9 99.4 99.0 98.9 Pulse 104 102 104 Resp 20 20 20 B/P (MAP) 132/100 (111) 154/100 (118) 138/95 (109) Pulse Ox 97 95 91 O2 Delivery Room Air Room Air Room Air Room Air O2 Flow Rate 2.0 10/07/19 10/08/19 10/08/19 23:00 03:07 07:00 Temp 98.3 98.6 97.6 98.3 98.6 97.6 Pulse 118 87 94 Resp 20 20 18 B/P (MAP) 154/111 (125) 154/101 (118) 138/100 (113) Pulse Ox 95 94 95 O2 Delivery Room Air Room Air Room Air Intake and Output 10/07/19 10/07/19 10/08/19 14:59 22:59 06:59 Output Total 800 ml Balance -800 ml Justicifation of Admission Dx: Justifications for Admission: Justification of Admission Dx: N/A CEDRIC EAGLE MD Oct 08, 2019 10:50
[2019-10-08 11:00] VITALS: BP 119/93
[2019-10-08 15:00] VITALS: BP 125/95
[2019-10-08] MEDS ORDERED: POTASSIUM CHLORIDE 20 MEQ TABLET.ER. PO ONE (15:00)
--- NOTE | 2019-10-08 16:26 | PDOC2 ---
CONSULT Date of Consult Date of Consult DATE: 10/08/19 TIME: 16:19 Reason for Consult Reason for Consult: anterior dislocation of bilateral TMJ Referring Physician Referring Physician: Dr. Phillips Identification/Chief Complaint Chief Complaint bilateral anterior dislocation of TMJ History of Present Illness Reason for Visit: 54 year old male was admitted on 10/05/2019 for seizure and alcohol withdrawal. Patient's reports that he has experienced jaw dislocation in the past with these seizures. He has open bite deformity since admission. Imaging done late last night confirmed anterior TMJ dislocation bilaterally. Patient cannot close mouth. No pain, discomfort or bruising. Past Medical History Cardiovascular: No pertinent hx Pulmonary: No pertinent hx GI: No pertinent hx Heme/Onc: No pertinent hx Hepatobiliary: No pertinent hx Psych: No pertinent hx Rheumatologic: No pertinent hx Infectious disease: No pertinent hx Renal/: No pertinent hx Endocrine: No pertinent hx Past Surgical History Past Surgical History: Other Family History Family History: No Significant, Other Social History ALCOHOL: heavy Current Medications Current Medications Current Medications Lorazepam (Ativan Inj) 2 mg 1X ONCE IVP Last administered on 10/05/19at 19:44; Start 10/05/19 at 19:30; Stop 10/05/19 at 19:31; Status DC Multivitamins 10 ml/Thiamine HCl 100 mg/Folic Acid 1 mg/Sodium Chloride 1,011.2 ml @ 1,000.088 mls/hr 1X ONCE IV Last administered on 10/05/19at 19:45; Start 10/05/19 at 19:30; Stop 10/05/19 at 20:30; Status DC Metoclopramide HCl (Reglan Vial) 10 mg 1X ONCE IVP Last administered on 10/05/19at 19:43; Start 10/05/19 at 19:45; Stop 10/05/19 at 19:46; Status DC Multivitamins 10 ml/Thiamine HCl 100 mg/Folic Acid 1 mg/Sodium Chloride 1,011.2 ml @ 100 mls/ hr DAILY IV Last administered on 10/08/19at 10:12; Start 10/06/19 at 09:00; Stop 10/09/19 at 19:07 Thiamine HCl 100 mg/Dextrose 51 ml @ 100 mls/hr DAILY IV ; Start 10/10/19 at 09:00; Stop 10/14/19 at 09:31 Lorazepam (Ativan Inj) 2 mg PRN Q1HR PRN IV For CIWA 8-14 Last administered on 10/06/19at 05:00; Start 10/05/19 at 20:15; Stop 10/06/19 at 06:44; Status DC Lorazepam (Ativan Inj) 2 mg 1X ONCE IVP Last administered on 10/05/19at 20:51; Start 10/05/19 at 20:15; Stop 10/05/19 at 20:27; Status DC Sodium Chloride 1,000 ml @ 1,000 mls/hr 1X ONCE IV Last administered on 10/05/19at 21:49; Start 10/05/19 at 22:00; Stop 10/05/19 at 22:59; Status DC Chlordiazepoxide (Librium) 50 mg 1X ONCE PO Last administered on 10/06/19at 03:50; Start 10/06/19 at 03:30; Stop 10/06/19 at 03:31; Status DC Fentanyl Citrate (Fentanyl 2ml Vial) 100 mcg STK-MED ONCE .ROUTE ; Start 10/06/19 at 06:34; Stop 10/06/19 at 06:35; Status DC Lorazepam (Ativan Inj) 2 mg PRN Q1HR PRN IV For CIWA 8-14 Last administered on 10/06/19at 14:42; Start 10/06/19 at 06:45 Lorazepam (Ativan Inj) 4 mg PRN Q1HR PRN IV For CIWA 15 or greater Last administered on 10/08/19at 03:05; Start 10/06/19 at 06:45 Haloperidol Lactate (Haldol Inj) 5 mg PRN Q4HRS PRN IVP Hallucinatns,Confusn,Delirium Last administered on 10/08/19at 03:02; Start 10/06/19 at 06:45 Fentanyl Citrate (Fentanyl 2ml Vial) 50 mcg PRN Q1HR PRN IVP SEVERE PAIN 7-10 Last administered on 10/06/19at 06:43; Start 10/06/19 at 06:45 Pantoprazole Sodium (PROTONIX VIAL for IV PUSH) 40 mg DAILYAC IVP Last administered on 10/08/19at 10:13; Start 10/06/19 at 16:30 Hydralazine HCl (Apresoline Inj) 10 mg 1X ONCE IVP Last administered on 10/07/19at 00:57; Start 10/06/19 at 23:45; Stop 10/06/19 at 23:46; Status DC Hydralazine HCl (Apresoline Inj) 10 mg PRN Q4HRS PRN IVP ELEVATED BP, SEE COMMENTS; Start 10/06/19 at 23:30 Potassium Chloride/Dextrose/ Sod Cl 1,000 ml @ 100 mls/hr Q10H IV Last administered on 10/07/19at 00:51; Start 10/06/19 at 23:30; Stop 10/07/19 at 09:29; Status DC Potassium Chloride/Water 100 ml @ 100 mls/hr Q1H IV Last administered on 10/07/19at 14:15; Start 10/07/19 at 08:00; Stop 10/07/19 at 11:59; Status DC Potassium Chloride (Klor-Con) 40 meq 1X ONCE PO ; Start 10/08/19 at 15:00; St op 10/08/19 at 15:01; Status DC Potassium Chloride (Klor-Con) 40 meq DAILYWBKFT PO ; Start 10/09/19 at 08:00 Active Scripts Active Zofran (Ondansetron Hcl) 4 Mg Tablet 1 Tab PO Q6HRS Ativan (Lorazepam) 2 Mg Tablet 2 Mg PO Q6-8HRS PRN Reported No Known Medications Prior To Admisstion (Info) Each 1 Each MC 1X Allergies Allergies: Coded Allergies: No Known Drug Allergies (Unverified , 03/20/19) ROS General: No: Chills, Night Sweats, Fatigue, Malaise, Appetite, Other PSYCHOLOGICAL ROS: YES: Anxiety Eyes: No Blurry vision, No Decreased vision, No Double vision, No Dry eyes, No Excessive tearing, No Eye Pain, No Itchy Eyes, No Loss of vision, No Photophobia, No Scotomata, No Uses contacts, No Uses glasses, No Other HEENT: YES: Other (cannot close mouth); No: Heacaches, Visual Changes, Hearing change, Nasal congestion, Nasal discharge, Oral lesions, Sinus pain, Sore Throat, Epistaxis, Sneezing, Snoring, Tinnitus, Vertigo, Vocal changes ALLERGY AND IMMUNOLOGY: No: Hives, Insect Bite Sensitivity, Itchy/Watery Eyes, Nasal Congestion, Post Nasal Drip, Seasonal Allergies, Other Hematological and Lymphatic: No: Bleeding Problems, Blood Clots, Blood Transfusions, Brusing, Night Sweats, Pallor, Swollen Lymph Nodes, Other ENDOCRINE: No: Breast Changes, Galactorrhea, Hair Pattern Changes, Hot Flashes, Malaise/lethargy, Mood Swings, Palpitations, Polydipsia/polyuria, Skin Changes, Temperature Intolerance, Unexpected Weight Changes, Other Respiratory: No: Cough, Hemoptysis, Orthopnea, Pleuritic Pain, Shortness of breath, SOB with excertion, Sputum Changes, Stridor, Tachypnea, Wheezing, Other Cardiovascular: No Chest Pain, No Palpitations, No Orthopnea, No Paroxysmal Noc. Dyspnea, No Edema, No Lt Headedness, No Other Gastrointestinal: No Nausea, No Vomiting, No Abdominal Pain, No Diarrhea, No Constipation, No Melena, No Hematochezia, No Other Neurological: Yes Behavorial Changes, Yes Seizures, Yes Tremors Skin: No Dry Skin, No Eczema, No Hair Changes, No Lumps, No Mole Changes, No Mottling, No Nail Changes, No Pruritus, No Rash, No Skin Lesion Changes, No Other, No Acne Physical Exam General: Alert, Oriented X3, Cooperative, No acute distress HEENT: PERRLA, EOMI, Mucous membr. moist/pink, Other (Open bite deformity of mouth, mandible displaced anteriorly, no intraoral ecchymosis or evidence of trauma, tonsils absent) Lungs: Clear to auscultation, Normal air movement Heart: Regular rate Extremities: No clubbing, No cyanosis, No edema Neuro: Normal tone, Cranial nerves 3-12 NL Psych/Mental Status: Mental status NL, Mood NL Vitals VITALS Vital Signs Date Time Temp Pulse Resp B/P (MAP) Pulse Ox O2 Delivery O2 Flow Rate FiO2 10/08/19 11:00 97.9 106 18 119/93 (102) 96 Room Air 2.0 97.9 Labs Labs Laboratory Tests Test 10/07/19 05:40 10/08/19 05:40 White Blood Count 8.5 x10^3/uL (4.0-11.0) 8.1 x10^3/uL (4.0-11.0) Red Blood Count 5.32 x10^6/uL (4.30-5.70) 5.28 x10^6/uL (4.30-5.70) Hemoglobin 10.8 g/dL (13.0-17.5) 10.9 g/dL (13.0-17.5) Hematocrit 36.0 % (39.0-53.0) 36.5 % (39.0-53.0) Mean Corpuscular Volume 68 fL (79-100) 69 fL (79-100) Mean Corpuscular Hemoglobin 20 pg (25-35) 21 pg (25-35) Mean Corpuscular Hemoglobin Concent 30 g/dL (31-37) 30 g/dL (31-37) Red Cell Distribution Width 24.7 % (11.5-14.5) 23.6 % (11.5-14.5) Platelet Count 83 x10^3/uL (140-400) 102 x10^3/uL (140-400) Neutrophils (%) (Auto) 66 % (31-73) 59 % (31-73) Lymphocytes (%) (Auto) 22 % (24-48) 27 % (24-48) Monocytes (%) (Auto) 11 % (0-9) 12 % (0-9) Eosinophils (%) (Auto) 0 % (0-3) 1 % (0-3) Basophils (%) (Auto) 1 % (0-3) 1 % (0-3) Neutrophils # (Auto) 5.6 x10^3/uL (1.8-7.7) 4.8 x10^3/uL (1.8-7.7) Lymphocytes # (Auto) 1.9 x10^3/uL (1.0-4.8) 2.2 x10^3/uL (1.0-4.8) Monocytes # (Auto) 0.9 x10^3/uL (0.0-1.1) 0.9 x10^3/uL (0.0-1.1) Eosinophils # (Auto) 0.0 x10^3/uL (0.0-0.7) 0.1 x10^3/uL (0.0-0.7) Basophils # (Auto) 0.1 x10^3/uL (0.0-0.2) 0.1 x10^3/uL (0.0-0.2) Segmented Neutrophils % 72 % (35-66) Band Neutrophils % 1 % (0-9) Lymphocytes % 18 % (24-48) Monocytes % 8 % (0-10) Basophils % 1 % (0-3) Platelet Estimate Decreased (ADEQUATE) Large Platelets Present Giant Platelets Present Polychromasia Present Hypochromasia Present Poikilocytosis Present Anisocytosis Present Microcytosis Slight Sodium Level 141 mmol/L (136-145) 142 mmol/L (136-145) Potassium Level 2.7 mmol/L (3.5-5.1) 3.2 mmol/L (3.5-5.1) Chloride Level 104 mmol/L (98-107) 106 mmol/L (98-107) Carbon Dioxide Level 22 mmol/L (21-32) 24 mmol/L (21-32) Anion Gap 15 (6-14) 12 (6-14) Blood Urea Nitrogen 5 mg/dL (8-26) 7 mg/dL (8-26) Creatinine 0.8 mg/dL (0.7-1.3) 1.0 mg/dL (0.7-1.3) Estimated GFR (Cockcroft-Gault) 100.0 77.3 BUN/Creatinine Ratio 6 (6-20) 7 (6-20) Glucose Level 103 mg/dL (70-99) 76 mg/dL (70-99) Calcium Level 8.4 mg/dL (8.5-10.1) 8.1 mg/dL (8.5-10.1) Total Bilirubin 1.3 mg/dL (0.2-1.0) 1.1 mg/dL (0.2-1.0) Aspartate Amino Transf (AST/SGOT) 83 U/L (15-37) 89 U/L (15-37) Alanine Aminotransferase (ALT/SGPT) 88 U/L (16-63) 78 U/L (16-63) Alkaline Phosphatase 63 U/L (46-116) 61 U/L (46-116) Total Protein 6.7 g/dL (6.4-8.2) 6.6 g/dL (6.4-8.2) Albumin 3.1 g/dL (3.4-5.0) 2.9 g/dL (3.4-5.0) Albumin/Globulin Ratio 0.9 (1.0-1.7) 0.8 (1.0-1.7) Laboratory Tests Test 10/08/19 05:40 White Blood Count 8.1 x10^3/uL (4.0-11.0) Red Blood Count 5.28 x10^6/uL (4.30-5.70) Hemoglobin 10.9 g/dL (13.0-17.5) Hematocrit 36.5 % (39.0-53.0) Mean Corpuscular Volume 69 fL (79-100) Mean Corpuscular Hemoglobin 21 pg (25-35) Mean Corpuscular Hemoglobin Concent 30 g/dL (31-37) Red Cell Distribution Width 23.6 % (11.5-14.5) Platelet Count 102 x10^3/uL (140-400) Neutrophils (%) (Auto) 59 % (31-73) Lymphocytes (%) (Auto) 27 % (24-48) Monocytes (%) (Auto) 12 % (0-9) Eosinophils (%) (Auto) 1 % (0-3) Basophils (%) (Auto) 1 % (0-3) Neutrophils # (Auto) 4.8 x10^3/uL (1.8-7.7) Lymphocytes # (Auto) 2.2 x10^3/uL (1.0-4.8) Monocytes # (Auto) 0.9 x10^3/uL (0.0-1.1) Eosinophils # (Auto) 0.1 x10^3/uL (0.0-0.7) Basophils # (Auto) 0.1 x10^3/uL (0.0-0.2) Sodium Level 142 mmol/L (136-145) Potassium Level 3.2 mmol/L (3.5-5.1) Chloride Level 106 mmol/L (98-107) Carbon Dioxide Level 24 mmol/L (21-32) Anion Gap 12 (6-14) Blood Urea Nitrogen 7 mg/dL (8-26) Creatinine 1.0 mg/dL (0.7-1.3) Estimated GFR (Cockcroft-Gault) 77.3 BUN/Creatinine Ratio 7 (6-20) Glucose Level 76 mg/dL (70-99) Calcium Level 8.1 mg/dL (8.5-10.1) Total Bilirubin 1.1 mg/dL (0.2-1.0) Aspartate Amino Transf (AST/SGOT) 89 U/L (15-37) Alanine Aminotransferase (ALT/SGPT) 78 U/L (16-63) Alkaline Phosphatase 61 U/L (46-116) Total Protein 6.6 g/dL (6.4-8.2) Albumin 2.9 g/dL (3.4-5.0) Albumin/Globulin Ratio 0.8 (1.0-1.7) Images Images CT Face (10/07/2019): anterior dislocation of bilateral TMJ Assessment/Plan Assessment/Plan PROCEDURE NOTE: Informed consent was obtained. Patient was given IV ativan for mild sedation. I then attempted to relocate jaw by putting caudal and posterior pressure on posterior molars bilaterally. This was unsuccessful in reducing dislocation. Multiple attempts made. I then gave patient 15 minutes break. I reattempted using wrist pivot method. I placed my thumbs on external chin and other fingers on anterior mandibular teeth bilaterally. Then gently rotated my wrists laterally. Jaw was easily reduced using this method and open bite corrected. Head wrap with Diogenes bandage placed to keep mouth closed. Patient should wear this for 2-3 days. 54 year old male with bilateral anterior dislocation of temporomandibular joint. I will attempt bedside relocation with mild sedation with Ativan. - I performed bedside relocation of bilateral tempormandibular joint. Informed consent obtained today from patient and his . Risks of procedure discussed with family and patient including mandibular fracture, bruising, bleeding, infection, pain, failure to relocation and need for further procedures. Informed consent obtained. - Patient needs to wear head wrap to keep mouth closed for 3 days. He can remove to shower or replace as needed. - Full liquid diet for 7 days-- no chewing. Limit mouth opening - Patient instructed to place fist under chin to keep mouth as closed as possible if needs to yawn for 2 months. - Follow up ENT as needed. DANAE STRAUSS MD Oct 08, 2019 16:26
--- NOTE | 2019-10-08 16:45 | NUR ---
Dr Mooney here to see patient regarding dislocated jaw. Patient given Ativan 4mg IV (was available per CIWA guidelines) per Dr's request. also here with patient.
--- NOTE | 2019-10-08 18:45 | NUR ---
Patient had removed wrapping that was helping to support jaw and limit movement. Reinforced to patient that it is very important to keep it in place. Patient indicated understanding. Reinforced to patient that he is to be on full liquid diet, not to open to chew, etc.
[2019-10-08 19:00] VITALS: BP 106/77
[2019-10-08] MEDS ORDERED: POTASSIUM BICARB 20 MEQ EFFERVESCENT TABLET. PO ONE (20:30)
[2019-10-08 23:00] VITALS: BP 172/113
[2019-10-09 03:37] VITALS: BP 151/94
[2019-10-09 06:04] LABS: BASO # 0.1 x10^3/uL (0.0-0.2); BASO % 1 % (0-3); EOS # 0.1 x10^3/uL (0.0-0.7); EOS % 2 % (0-3); HEMOGLOBIN 10.8 g/dL (13.0-17.5); LYMPH # 1.7 x10^3/uL (1.0-4.8); LYMPH % 20 % (24-48); MEAN CORPUSCULAR HEMOGLOBIN 21 pg (25-35); MEAN CORPUSCULAR HGB CONC 29 g/dL (31-37); MEAN CORPUSCULAR VOLUME 70 fL (79-100); MONO # 1.6 x10^3/uL (0.0-1.1); MONO % 19 % (0-9); NEUT # 4.9 x10^3/uL (1.8-7.7); NEUT % 59 % (31-73); PLATELET COUNT 129 x10^3/uL (140-400); RED CELL DISTRIBUTION WIDTH 24.2 % (11.5-14.5); WHITE BLOOD COUNT 8.3 x10^3/uL (4.0-11.0)
[2019-10-09 06:49] LABS: ALBUMIN/GLOBULIN RATIO 0.9 (1.0-1.7); CALCIUM 8.4 mg/dL (8.5-10.1); CREATININE 0.9 mg/dL (0.7-1.3); GFR 87.3; TOTAL PROTEIN 6.3 g/dL (6.4-8.2)
[2019-10-09 07:00] VITALS: BP 170/90
[2019-10-09] MEDS: POTASSIUM CHLORIDE 20 MEQ TABLET.ER. PO SCH (09:06)
[2019-10-09] MEDS: MULTIVIT INFUSN,ADULT 4,VIT K 10 ML, THIAMINE INJ 100 MG, FOLIC ACID INJ 1 MG in IV NOR... IV SCH (09:06)
[2019-10-09] MEDS: PANTOPRAZOLE IV PUSH 40 MG VIAL. IVP SCH (09:06)
--- NOTE | 2019-10-09 09:33 | PDOC ---
[employer] PROGRESS NOTE Date of Service DOS: DATE: 10/09/19 TIME: 09:32 Chief Complaint Chief Complaint ASSESSMENT AND PLAN: Alcohol withdrawal and seizures. long hx alcohol abuse ct abd 03/13 51 x 39 mm lesser curvature gastric mass with no evidence of extension into the lesser sac or perigastric tissues.Segment 2 liver mass measuring up to 18 mm suspicious for metastasis. GIST tumor (lesser curve of stomach, benign appearance with ulcers, good margins), liver biopsy c/w steatosis Bilateral anterior temporomandibular joint dislocations. 10/07 admitted. alcohol withdrawal protocol, home meds, DVT prophylaxis. Full code. IV fluids. seizure precautions gi consult ENT CONSULT done - Patient needs to wear head wrap to keep mouth closed for 3 days. He can remove to shower or replace as needed. - Full liquid diet for 7 days-- no chewing. Limit mouth opening - Patient instructed to place fist under chin to keep mouth as closed as possible if needs to yawn for 2 months. - Follow up ENT as needed. D/W RN 37 min pt exam, chart review, > 50% of time spent with exam, chart review, pt care coordination History of Present Illness History of Present Illness Mr Lozada is a 54yo male who had a seizure. He is drinking vodka daily about a liter a day. We have had him in before with alcohol withdrawal. Admitted for having seizures, noted with anterior mandibular dislocation, repositioned by ENT on 10/08/2019. Confused with me today, not wearing wrap on jaw. Labs improved. Vitals/I&O Vitals/I&O: Vital Signs Date Time Temp Pulse Resp B/P (MAP) Pulse Ox O2 Delivery O2 Flow Rate FiO2 10/09/19 07:00 98.7 114 18 170/90 (116) 96 Room Air 98.7 10/08/19 11:00 2.0 I & O 10/08/19 10/08/19 10/09/19 15:00 23:00 07:00 Output Total 700 ml Balance -700 ml Physical Exam Physical Exam: ENDOCRINE: No thyromegaly was palpated LYMPHATICS: No cervical chain or axillary nodes were noted HEMATOPOIETIC: No bruising NECK: Supple, no JVD, no thyromegaly was noted. LUNGS: Clear to auscultation in all lung reno without rhonchi or wheezing. HEART: RRR, S1, S2 present. Peripheral pulses intact, no obvious murmurs were noted. ABDOMEN: He has decreased bowel sounds with some tenderness. EXTREMITIES: Without any cyanosis, clubbing, or edema. Pedal pulses intact, Homans sign is negative. NEUROLOGIC: Normal speech, normal tone. A & O x3, moves all extremities, no obvious focal deficits. PSYCHIATRIC: Normal affect, normal mood. Stable. SKIN: No ulcerations or rashes, good skin turgor, no jaundice. VASCULAR: Good capillary refill, neurovascular bundle appears to be intact. General: Alert, Oriented X3, Cooperative, No acute distress Heart: Regular rate Lungs: Clear Abdomen: Normal bowel sounds, Soft, No tenderness, No masses Extremities: No clubbing, No cyanosis, No edema Skin: No breakdown, No significant lesion Labs Labs: Laboratory Tests Test 10/08/19 23:13 10/09/19 05:40 Ammonia < 10 mcmol/L (11-34) White Blood Count 8.3 x10^3/uL (4.0-11.0) Red Blood Count 5.30 x10^6/uL (4.30-5.70) Hemoglobin 10.8 g/dL (13.0-17.5) Hematocrit 37.0 % (39.0-53.0) Mean Corpuscular Volume 70 fL (79-100) Mean Corpuscular Hemoglobin 21 pg (25-35) Mean Corpuscular Hemoglobin Concent 29 g/dL (31-37) Red Cell Distribution Width 24.2 % (11.5-14.5) Platelet Count 129 x10^3/uL (140-400) Neutrophils (%) (Auto) 59 % (31-73) Lymphocytes (%) (Auto) 20 % (24-48) Monocytes (%) (Auto) 19 % (0-9) Eosinophils (%) (Auto) 2 % (0-3) Basophils (%) (Auto) 1 % (0-3) Neutrophils # (Auto) 4.9 x10^3/uL (1.8-7.7) Lymphocytes # (Auto) 1.7 x10^3/uL (1.0-4.8) Monocytes # (Auto) 1.6 x10^3/uL (0.0-1.1) Eosinophils # (Auto) 0.1 x10^3/uL (0.0-0.7) Basophils # (Auto) 0.1 x10^3/uL (0.0-0.2) Sodium Level 143 mmol/L (136-145) Potassium Level 4.0 mmol/L (3.5-5.1) Chloride Level 106 mmol/L (98-107) Carbon Dioxide Level 22 mmol/L (21-32) Anion Gap 15 (6-14) Blood Urea Nitrogen 9 mg/dL (8-26) Creatinine 0.9 mg/dL (0.7-1.3) Estimated GFR (Cockcroft-Gault) 87.3 BUN/Creatinine Ratio 10 (6-20) Glucose Level 91 mg/dL (70-99) Calcium Level 8.4 mg/dL (8.5-10.1) Total Bilirubin 1.0 mg/dL (0.2-1.0) Aspartate Amino Transf (AST/SGOT) 92 U/L (15-37) Alanine Aminotransferase (ALT/SGPT) 93 U/L (16-63) Alkaline Phosphatase 68 U/L (46-116) Total Protein 6.3 g/dL (6.4-8.2) Albumin 3.0 g/dL (3.4-5.0) Albumin/Globulin Ratio 0.9 (1.0-1.7) Comment Review of Relevant I have reviewed the following items lana (where applicable) has been applied. Medications: Current Medications Medications (Trade) Dose Ordered Sig/Jacqueline Route PRN Reason Start Time Stop Time Status Last Admin Dose Admin Potassium Chloride (Klor-Con) 40 meq DAILYWBKFT PO 10/09/19 08:00 10/09/19 09:06 Potassium Bicarbonate (Potassium Effervescent Tablet) 40 meq 1X ONCE PO 10/08/19 20:30 10/08/19 20:31 DC 10/08/19 21:10 Justicifation of Admission Dx: Justifications for Admission: Justification of Admission Dx: N/A DYAN SANDOVAL MD Oct 09, 2019 09:33
[2019-10-09 11:00] VITALS: BP 156/98
--- NOTE | 2019-10-09 12:10 | PDOC ---
Date of Service: DATE: 10/09/19 TIME: 12:04 Objective: Vital Signs: Vital Signs Date Time Temp Pulse Resp B/P (MAP) Pulse Ox O2 Delivery O2 Flow Rate FiO2 10/09/19 11:00 98.2 105 18 156/98 (117) 94 Room Air 98.2 10/08/19 11:00 2.0 Labs: Laboratory Tests Test 10/08/19 23:13 10/09/19 05:40 Ammonia < 10 mcmol/L White Blood Count 8.3 x10^3/uL Red Blood Count 5.30 x10^6/uL Hemoglobin 10.8 g/dL Hematocrit 37.0 % Mean Corpuscular Volume 70 fL Mean Corpuscular Hemoglobin 21 pg Mean Corpuscular Hemoglobin Concent 29 g/dL Red Cell Distribution Width 24.2 % Platelet Count 129 x10^3/uL Neutrophils (%) (Auto) 59 % Lymphocytes (%) (Auto) 20 % Monocytes (%) (Auto) 19 % Eosinophils (%) (Auto) 2 % Basophils (%) (Auto) 1 % Neutrophils # (Auto) 4.9 x10^3/uL Lymphocytes # (Auto) 1.7 x10^3/uL Monocytes # (Auto) 1.6 x10^3/uL Eosinophils # (Auto) 0.1 x10^3/uL Basophils # (Auto) 0.1 x10^3/uL Sodium Level 143 mmol/L Potassium Level 4.0 mmol/L Chloride Level 106 mmol/L Carbon Dioxide Level 22 mmol/L Anion Gap 15 Blood Urea Nitrogen 9 mg/dL Creatinine 0.9 mg/dL Estimated GFR (Cockcroft-Gault) 87.3 BUN/Creatinine Ratio 10 Glucose Level 91 mg/dL Calcium Level 8.4 mg/dL Total Bilirubin 1.0 mg/dL Aspartate Amino Transf (AST/SGOT) 92 U/L Alanine Aminotransferase (ALT/SGPT) 93 U/L Alkaline Phosphatase 68 U/L Total Protein 6.3 g/dL Albumin 3.0 g/dL Albumin/Globulin Ratio 0.9 PE: GEN: NAD ABD: non-distended NEURO/PSYCH: sleeping A/P: Alcohol withdrawal/seizures Bilateral TMJ dislocation s/p relocation - non-compliant w/ head wrap Microcytic anemia (h/o MAIA), thrombocytopenia Elevated LFTs (better), hepatic steatosis 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 Justicifation of Admission Dx: Justifications for Admission: Justification of Admission Dx: N/A JESSICA MAYEN Oct 09, 2019 12:10
[2019-10-09 15:00] VITALS: BP 194/133
--- NOTE | 2019-10-09 15:48 | NUR ---
SW following. Reviewed chart and discussed with RN. Pt from home with , room air, regular diet. No PT/OT needs. Pt has a long hx of alcohol abuse with seizures/withdrawal. JOSESITO completed referral to PAT. Spoke with Gee who stated pt will likely discharge tomorrow, 10/10/2019. Gee from PAT stated pt was referred to IOP with Al. SW to follow.
[2019-10-09 19:00] VITALS: BP 123/88
[2019-10-09 23:00] VITALS: BP 145/89
[2019-10-10 03:00] VITALS: BP 141/104
[2019-10-10] MEDS: PANTOPRAZOLE IV PUSH 40 MG VIAL. IVP SCH (05:25)
[2019-10-10 05:44] LABS: ALBUMIN 2.9 g/dL (3.4-5.0); ALBUMIN/GLOBULIN RATIO 0.9 (1.0-1.7); CREATININE 1.1 mg/dL (0.7-1.3); GFR 69.2; POTASSIUM 3.8 mmol/L (3.5-5.1); TOTAL BILIRUBIN 0.8 mg/dL (0.2-1.0); TOTAL PROTEIN 6.2 g/dL (6.4-8.2)
[2019-10-10 07:00] VITALS: BP 152/96
[2019-10-10] MEDS ORDERED: POTASSIUM CHLORIDE 20 MEQ TABLET.ER. PO ONE (08:00)
--- NOTE | 2019-10-10 08:00 | PDOC ---
[employer] PROGRESS NOTE Date of Service DOS: DATE: 10/10/19 TIME: 07:59 Chief Complaint Chief Complaint A/P: Alcohol withdrawal and seizures. long hx alcohol abuse ct abd 03/13 51 x 39 mm lesser curvature gastric mass with no evidence of extension into the lesser sac or perigastric tissues.Segment 2 liver mass measuring up to 18 mm suspicious for metastasis. GIST tumor (lesser curve of stomach, benign appearance with ulcers, good margins), liver biopsy c/w steatosis Bilateral anterior temporomandibular joint dislocations. 10/07 Admitted alcohol withdrawal protocol, home meds, DVT prophylaxis. Full code. IV fluids. seizure precautions gi consult ENT CONSULT done - Patient needs to wear head wrap to keep mouth closed for 3 days. He can remove to shower or replace as needed. - Full liquid diet for 7 days-- no chewing. Limit mouth opening - Patient instructed to place fist under chin to keep mouth as closed as possible if needs to yawn for 2 months. - Follow up ENT as needed. D/W RN 37 min pt exam, chart review, > 50% of time spent with exam, chart review, pt care coordination History of Present Illness History of Present Illness Mr Lozada is a 54yo male who had a seizure. He is drinking vodka daily about a liter a day. We have had him in before with alcohol withdrawal. Admitted for having seizures, noted with anterior mandibular dislocation, repositioned by ENT on 10/08/2019. 10/08: Confused with me today, not wearing wrap on jaw. Labs improved. Confused overnight. This morning more clearheaded. He thinks it is July but does notes 2019. He notes that he spoke with his and he is planning on going to [facility] for alcohol rehabilitation. Vitals/I&O Vitals/I&O: Vital Signs Date Time Temp Pulse Resp B/P (MAP) Pulse Ox O2 Delivery O2 Flow Rate FiO2 10/10/19 03:00 98.9 92 18 141/104 (116) 95 Room Air 98.9 I & O 10/09/19 10/09/19 10/10/19 15:00 23:00 07:00 Intake Total 240 ml 0 ml 240 ml Output Total 150 ml 200 ml 400 ml Balance 90 ml -200 ml -160 ml Physical Exam Physical Exam: ENDOCRINE: No thyromegaly was palpated LYMPHATICS: No cervical chain or axillary nodes were noted HEMATOPOIETIC: No bruising NECK: Supple, no JVD, no thyromegaly was noted. LUNGS: Clear to auscultation in all lung reno without rhonchi or wheezing. HEART: RRR, S1, S2 present. Peripheral pulses intact, no obvious murmurs were noted. ABDOMEN: He has decreased bowel sounds with some tenderness. EXTREMITIES: Without any cyanosis, clubbing, or edema. Pedal pulses intact, Homans sign is negative. NEUROLOGIC: Normal speech, normal tone. A & O x3, moves all extremities, no obvious focal deficits. PSYCHIATRIC: Normal affect, normal mood. Stable. SKIN: No ulcerations or rashes, good skin turgor, no jaundice. VASCULAR: Good capillary refill, neurovascular bundle appears to be intact. General: Alert, Oriented X3, Cooperative, No acute distress Heart: Regular rate Lungs: Clear Abdomen: Normal bowel sounds, Soft, No tenderness, No masses Extremities: No clubbing, No cyanosis, No edema Skin: No breakdown, No significant lesion Labs Labs: Laboratory Tests Test 10/10/19 04:20 Sodium Level 141 mmol/L (136-145) Potassium Level 3.8 mmol/L (3.5-5.1) Chloride Level 106 mmol/L (98-107) Carbon Dioxide Level 23 mmol/L (21-32) Anion Gap 12 (6-14) Blood Urea Nitrogen 10 mg/dL (8-26) Creatinine 1.1 mg/dL (0.7-1.3) Estimated GFR (Cockcroft-Gault) 69.2 BUN/Creatinine Ratio 9 (6-20) Glucose Level 88 mg/dL (70-99) Calcium Level 8.0 mg/dL (8.5-10.1) Total Bilirubin 0.8 mg/dL (0.2-1.0) Aspartate Amino Transf (AST/SGOT) 88 U/L (15-37) Alanine Aminotransferase (ALT/SGPT) 96 U/L (16-63) Alkaline Phosphatase 70 U/L (46-116) Total Protein 6.2 g/dL (6.4-8.2) Albumin 2.9 g/dL (3.4-5.0) Albumin/Globulin Ratio 0.9 (1.0-1.7) Comment Review of Relevant I have reviewed the following items lana (where applicable) has been applied. Medications: Current Medications Medications (Trade) Dose Ordered Sig/Jacqueline Route PRN Reason Start Time Stop Time Status Last Admin Dose Admin Potassium Chloride (Klor-Con) 40 meq [id number] PO 10/09/19 08:00 10/09/19 09:06 Justicifation of Admission Dx: Justifications for Admission: Justification of Admission Dx: N/A DYAN SANDOVAL MD Oct 10, 2019 08:00
[2019-10-10] MEDS: POTASSIUM CHLORIDE 20 MEQ TABLET.ER. PO SCH (08:29)
--- NOTE | 2019-10-10 08:31 | NUR ---
per Dr. Nolasco, 40 mEq K+ administered, 20 nonadmin.
[2019-10-10] MEDS ORDERED: THIAMINE 100 MG TABLET. PO SCH (09:00)
[2019-10-10] MEDS ORDERED: THIAMINE INJ 100 MG in IV DEXTROSE 5% 50 ML IV SCH (09:00)
--- NOTE | 2019-10-10 10:58 | PDOC3 ---
Discharge Summary Visit Information Date of Admission: Oct 05, 2019 Date of Discharge: Oct 10, 2019 Admitting Diagnosis: Alcohol withdrawal seizure Final Diagnosis Jaw dislocation Brief Hospital Course Allergies Allergies Coded Allergies Type Severity Reaction Last Updated Verified No Known Drug Allergies 03/20/19 No Vital Signs Vital Signs Date Time Temp Pulse Resp B/P (MAP) Pulse Ox O2 Delivery O2 Flow Rate FiO2 10/10/19 07:00 98.7 89 18 152/96 (114) 97 Room Air 98.7 Lab Results Laboratory Tests Test 10/08/19 23:13 10/09/19 05:40 10/10/19 04:20 Ammonia < 10 mcmol/L (11-34) White Blood Count 8.3 x10^3/uL (4.0-11.0) Red Blood Count 5.30 x10^6/uL (4.30-5.70) Hemoglobin 10.8 g/dL (13.0-17.5) Hematocrit 37.0 % (39.0-53.0) Mean Corpuscular Volume 70 fL (79-100) Mean Corpuscular Hemoglobin 21 pg (25-35) Mean Corpuscular Hemoglobin Concent 29 g/dL (31-37) Red Cell Distribution Width 24.2 % (11.5-14.5) Platelet Count 129 x10^3/uL (140-400) Neutrophils (%) (Auto) 59 % (31-73) Lymphocytes (%) (Auto) 20 % (24-48) Monocytes (%) (Auto) 19 % (0-9) Eosinophils (%) (Auto) 2 % (0-3) Basophils (%) (Auto) 1 % (0-3) Neutrophils # (Auto) 4.9 x10^3/uL (1.8-7.7) Lymphocytes # (Auto) 1.7 x10^3/uL (1.0-4.8) Monocytes # (Auto) 1.6 x10^3/uL (0.0-1.1) Eosinophils # (Auto) 0.1 x10^3/uL (0.0-0.7) Basophils # (Auto) 0.1 x10^3/uL (0.0-0.2) Sodium Level 143 mmol/L (136-145) 141 mmol/L (136-145) Potassium Level 4.0 mmol/L (3.5-5.1) 3.8 mmol/L (3.5-5.1) Chloride Level 106 mmol/L (98-107) 106 mmol/L (98-107) Carbon Dioxide Level 22 mmol/L (21-32) 23 mmol/L (21-32) Anion Gap 15 (6-14) 12 (6-14) Blood Urea Nitrogen 9 mg/dL (8-26) 10 mg/dL (8-26) Creatinine 0.9 mg/dL (0.7-1.3) 1.1 mg/dL (0.7-1.3) Estimated GFR (Cockcroft-Gault) 87.3 69.2 BUN/Creatinine Ratio 10 (6-20) 9 (6-20) Glucose Level 91 mg/dL (70-99) 88 mg/dL (70-99) Calcium Level 8.4 mg/dL (8.5-10.1) 8.0 mg/dL (8.5-10.1) Total Bilirubin 1.0 mg/dL (0.2-1.0) 0.8 mg/dL (0.2-1.0) Aspartate Amino Transf (AST/SGOT) 92 U/L (15-37) 88 U/L (15-37) Alanine Aminotransferase (ALT/SGPT) 93 U/L (16-63) 96 U/L (16-63) Alkaline Phosphatase 68 U/L (46-116) 70 U/L (46-116) Total Protein 6.3 g/dL (6.4-8.2) 6.2 g/dL (6.4-8.2) Albumin 3.0 g/dL (3.4-5.0) 2.9 g/dL (3.4-5.0) Albumin/Globulin Ratio 0.9 (1.0-1.7) 0.9 (1.0-1.7) Laboratory Tests Test 10/10/19 04:20 Sodium Level 141 mmol/L (136-145) Potassium Level 3.8 mmol/L (3.5-5.1) Chloride Level 106 mmol/L (98-107) Carbon Dioxide Level 23 mmol/L (21-32) Anion Gap 12 (6-14) Blood Urea Nitrogen 10 mg/dL (8-26) Creatinine 1.1 mg/dL (0.7-1.3) Estimated GFR (Cockcroft-Gault) 69.2 BUN/Creatinine Ratio 9 (6-20) Glucose Level 88 mg/dL (70-99) Calcium Level 8.0 mg/dL (8.5-10.1) Total Bilirubin 0.8 mg/dL (0.2-1.0) Aspartate Amino Transf (AST/SGOT) 88 U/L (15-37) Alanine Aminotransferase (ALT/SGPT) 96 U/L (16-63) Alkaline Phosphatase 70 U/L (46-116) Total Protein 6.2 g/dL (6.4-8.2) Albumin 2.9 g/dL (3.4-5.0) Albumin/Globulin Ratio 0.9 (1.0-1.7) Brief Hospital Course Mr Lozada is a 54yo male who had a seizure. He is drinking vodka daily about a liter a day. We have had him in before with alcohol withdrawal. Admitted for having seizures, noted with anterior mandibular dislocation, repositioned by ENT on 10/08/2019. 10/08: Confused with me today, not wearing wrap on jaw. Labs improved. This morning more clearheaded. He thinks it is July but does notes 2019. He notes that he spoke with his and he is planning on going to [facility] for alcohol rehabilitation. Problem list: Alcohol withdrawal and seizures. long hx alcohol abuse ct abd 03/13 51 x 39 mm lesser curvature gastric mass with no evidence of extension into the lesser sac or perigastric tissues.Segment 2 liver mass measuring up to 18 mm suspicious for metastasis. GIST tumor (lesser curve of stomach, benign appearance with ulcers, good margins), liver biopsy c/w steatosis Bilateral anterior temporomandibular joint dislocations. 10/07 Plan: IOP at [facility], has been there previously. alcohol withdrawal protocol, ENT CONSULT done - Patient needs to wear head wrap to keep mouth closed for 1 day. He can remove to shower or replace as needed. - Full liquid diet for 5 days-- no chewing. Limit mouth opening - Patient instructed to place fist under chin to keep mouth as closed as possible if needs to yawn for 2 months. - Follow up ENT as needed. 37 min pt exam, chart review, > 50% of time spent with exam, chart review, pt care coordination Discharge Information Condition at Discharge: Improved Follow Up: Weeks (1) Disposition/Orders: D/C to Home Scheduled Info (No Known Medications Prior To Admisstion) Each, 1 EACH 1X for none, (Reported) Entered as Reported by: RENALDO COUGHLIN on 06/06/19 0104 Ondansetron Hcl (Zofran) 4 Mg Tablet, 1 TAB PO Q6HRS, #10 Ref 0 Prescribed by: JACY MOODY on 06/26/19 1054 Scheduled PRN Lorazepam (Ativan) 2 Mg Tablet, 2 MG PO Q6-8HRS PRN for ALCOHOL WITHDRAWAL, #20 Prescribed by: JACY MOODY on 06/26/19 1051 Justicifation of Admission Dx: Justifications for Admission: Justification of Admission Dx: N/A DYAN SANDOVAL MD Oct 10, 2019 10:58
[2019-10-10 11:05] VITALS: BP 138/98
--- NOTE | 2019-10-10 11:13 | PDOC ---
Date of Service: DATE: 10/10/19 TIME: 11:11 Objective: Objective: D/w nurse - to DC today. Vital Signs: Vital Signs Date Time Temp Pulse Resp B/P (MAP) Pulse Ox O2 Delivery O2 Flow Rate FiO2 10/10/19 11:05 98.9 91 16 138/98 (111) 97 Room Air 98.9 Labs: Laboratory Tests Test 10/10/19 04:20 Sodium Level 141 mmol/L Potassium Level 3.8 mmol/L Chloride Level 106 mmol/L Carbon Dioxide Level 23 mmol/L Anion Gap 12 Blood Urea Nitrogen 10 mg/dL Creatinine 1.1 mg/dL Estimated GFR (Cockcroft-Gault) 69.2 BUN/Creatinine Ratio 9 Glucose Level 88 mg/dL Calcium Level 8.0 mg/dL Total Bilirubin 0.8 mg/dL Aspartate Amino Transf (AST/SGOT) 88 U/L Alanine Aminotransferase (ALT/SGPT) 96 U/L Alkaline Phosphatase 70 U/L Total Protein 6.2 g/dL Albumin 2.9 g/dL Albumin/Globulin Ratio 0.9 PE: GEN: NAD - sleeping - did not awaken when I called his name A/P: Alcohol withdrawal/seizures Bilateral TMJ dislocation s/p relocation H/o MAIA, thrombocytopenia Elevated LFTs, hepatic steatosis H/o GIST s/p resection 02/2019 -- Dc per primary. Stop alcohol. Will review any need for scheduled GI follow-up w/ Dr. Valverde. Justicifation of Admission Dx: Justifications for Admission: Justification of Admission Dx: N/A JESSICA MAYEN Oct 10, 2019 11:13
--- NOTE | 2019-10-10 12:00 | NUR ---
patient discharged home with . meds and followup reviewed. pt advised to f/u w/ alexis as discussed w/ PAT team. pt provided with substance abuse info including hotline number. IV removed, cath intact. pt stable upon dc.
--- NOTE | 2019-10-10 14:17 | NUR ---
SW following. Reviewed chart and discussed with RN and Dr. Nolasco. Pt to discharge home today self-care. Pt to follow up with [facility] for IOP services per Gee with PAT. No further SW needs at this time.
== END 2019-10-10 12:00 | disposition home or self-care (01) | DRG 158 ==
LOC: ER 18:53 → ED HOLD 20:00 → 5 NORTH 10-06 15:28
PROVIDERS: ADMIT Internal Medicine; ATTEND Internal Medicine
PROC: 0RSDXZZ Reposition Left Temporomandibular Joint, External Approach (ICD-10-PCS; principal; 2019-10-05)
PROC: 0RSCXZZ Reposition Right Temporomandibular Joint, External Approach (ICD-10-PCS; 2019-10-05)
DX: S03.03XA Dislocation of jaw, bilateral, initial encounter (principal); F10.239 Alcohol dependence with withdrawal, unspecified; K57.90 Diverticulosis of intestine, part unspecified, without perforation or abscess without bleeding; D50.9 Iron deficiency anemia, unspecified; I10 Essential (primary) hypertension; K64.9 Unspecified hemorrhoids; K76.0 Fatty (change of) liver, not elsewhere classified; R56.9 Unspecified convulsions; S00.03XA Contusion of scalp, initial encounter; S82.892A Other fracture of left lower leg, initial encounter for closed fracture; W19.XXXA Unspecified fall, initial encounter; Z85.00 Personal history of malignant neoplasm of unspecified digestive organ; Z87.891 Personal history of nicotine dependence; Z90.3 Acquired absence of stomach [part of]; Z91.19 Patient's noncompliance with other medical treatment and regimen
CPT/HCPCS: 36415; 70450; 70486; 80053; 80307; 81001; 82140; 82550; 83735; 84484; 85007; 85025; 85610; 85730; 93005; 96365; 96366; 96375; 96376; C9113; G0480; J0360; J1630; J2060; J2765; J3010; J3411; J3480; J3490; J7030; 99285-25; G0378

== ENCOUNTER 2019-12-21 08:24 | Inpatient (IN) | payer BC ==
[~2019-12-21] VITALS: Ht 180.3 cm; Wt 92.3 kg
--- NOTE | 2019-12-21 08:43 | PHYS DOC ---
Past Medical History Past Medical History: Hypertension, Other Additional Past Medical Histor: seizures with alcohol withdrawl,ETOH ABUSE Past Surgical History: Other Additional Past Surgical Histo: L ANKLE, had benign tumor removed from abdomen last year Smoking Status: Current Every Day Smoker Alcohol Use: Heavy Drug Use: None General Adult EDM: Chief Complaint: ALCOHOL INTOXICATION HPI: HPI: Patient is a 54 year old male who arrives with a chief complaint of alcohol withdrawal. Patient drinks about a quart liquor every day. Last drink was last night. Patient is feeling tremulous and would like to stop drinking. Patient has a history of alcohol withdrawal seizures. Patient complains of some diffuse abdominal pain with nausea vomiting. Patient is also had a couple episodes of bright red blood in the stool. Patient had a cough for several weeks as well. Patient denies fever Review of Systems: Review of Systems: Constitutional: Denies fever or chills. [] Eyes: Denies change in visual acuity. [] HENT: Denies nasal congestion or sore throat. [] Respiratory: Complains of cough but no shortness of breath Cardiovascular: Denies chest pain or edema. [] GI: Complains abdominal pain, nausea, vomiting with some blood in the stool : Denies dysuria. [] Musculoskeletal: Denies back pain or joint pain. [] Integument: Denies rash. [] Neurologic: Denies headache, focal weakness or sensory changes. [] Endocrine: Denies polyuria or polydipsia. [] Lymphatic: Denies swollen glands. [] Psychiatric: Denies depression or anxiety. [] Heart Score: Risk Factors: Risk Factors: DM, Current or recent (<one month) smoker, HTN, HLP, family history of CAD, obesity. Risk Scores: Score 0 - 3: 2.5% MACE over next 6 weeks - Discharge Home Score 4 - 6: 20.3% MACE over next 6 weeks - Admit for Clinical Observation Score 7 - 10: 72.7% MACE over next 6 weeks - Early Invasive Strategies Current Medications: Current Medications Multivitamins 10 ml/Thiamine HCl 100 mg/Folic Acid 1 mg/Sodium Chloride 1,011.2 ml @ 1,000.088 mls/hr 1X ONCE IV Last administered on 12/21/19at 09:11; Start 12/21/19 at 08:45; Stop 12/21/19 at 09:45; Status DC Ondansetron HCl (Zofran) 4 mg 1X ONCE IVP Last administered on 12/21/19at 09:11; Start 12/21/19 at 08:45; Stop 12/21/19 at 08:46; Status DC Lorazepam (Ativan Inj) 2 mg 1X ONCE IVP Last administered on 12/21/19at 09:11; Start 12/21/19 at 08:45; Stop 12/21/19 at 08:46; Status DC Active Scripts Active Zofran (Ondansetron Hcl) 4 Mg Tablet 1 Tab PO Q6HRS Ativan (Lorazepam) 2 Mg Tablet 2 Mg PO Q6-8HRS PRN Reported No Known Medications Prior To Admisstion (Info) Each 1 Each MC 1X Current Medications Medications (Trade) Dose Ordered Sig/Jacqueline Start Time Stop Time Status Last Admin Dose Admin Lorazepam (Ativan Inj) 2 mg 1X ONCE 12/21/19 08:45 12/21/19 08:46 UNV Multivitamins 10 ml/Thiamine HCl 100 mg/Folic Acid 1 mg/Sodium Chloride 1,011.2 ml @ 1,000.088 mls/hr 1X ONCE 12/21/19 08:45 12/21/19 09:45 UNV Ondansetron HCl (Zofran) 4 mg 1X ONCE 12/21/19 08:45 12/21/19 08:46 UNV Allergies: Allergies: Allergies Coded Allergies Type Severity Reaction Last Updated Verified No Known Drug Allergies 03/20/19 No Physical Exam: PE: Constitutional: Well developed, well nourished, mild distress, tremulous HENT: Normocephalic, atraumatic, bilateral external ears normal, no trismus, nose normal. [] Eyes: PERRLA, EOMI, conjunctiva normal, no discharge. [] Neck: Normal range of motion, no tenderness, supple, no stridor. [] Cardiovascular: Tachycardic, peripheral pulses are intact Lungs & Thorax: Bilateral breath sounds clear, no respiratory distress Abdomen: Soft with minimal diffuse tenderness without guarding or rebound no masses, no pulsatile masses Skin: Warm, dry, no erythema, no rash. [] Back: No tenderness, no CVA tenderness. [] Extremities: No tenderness, no cyanosis, no clubbing, ROM intact, no edema. [] Neurologic: Alert and oriented X 3, normal motor function, normal sensory function, no focal deficits noted. Tremulous [] Psychologic: Anxious and tremulous Current Patient Data: Labs: Laboratory Tests Test 12/21/19 08:43 White Blood Count 8.2 x10^3/uL Red Blood Count 5.63 x10^6/uL Hemoglobin 12.0 g/dL Hematocrit 39.0 % Mean Corpuscular Volume 69 fL Mean Corpuscular Hemoglobin 21 pg Mean Corpuscular Hemoglobin Concent 31 g/dL Red Cell Distribution Width 24.3 % Platelet Count 138 x10^3/uL Neutrophils (%) (Auto) 62 % Lymphocytes (%) (Auto) 30 % Monocytes (%) (Auto) 8 % Eosinophils (%) (Auto) 0 % Basophils (%) (Auto) 1 % Neutrophils # (Auto) 5.0 x10^3/uL Lymphocytes # (Auto) 2.4 x10^3/uL Monocytes # (Auto) 0.6 x10^3/uL Eosinophils # (Auto) 0.0 x10^3/uL Basophils # (Auto) 0.0 x10^3/uL Platelet Estimate Decreased Hypochromasia Present Anisocytosis Slight Microcytosis Present Target Cells Few Ovalocytes Occ Prothrombin Time 13.5 SEC Prothromb Time International Ratio 1.1 Activated Partial Thromboplast Time 26 SEC Sodium Level 140 mmol/L Potassium Level 3.4 mmol/L Chloride Level 102 mmol/L Carbon Dioxide Level 16 mmol/L Anion Gap 22 Blood Urea Nitrogen 10 mg/dL Creatinine 0.8 mg/dL Estimated GFR (Cockcroft-Gault) 100.0 BUN/Creatinine Ratio 13 Glucose Level 121 mg/dL Calcium Level 9.1 mg/dL Magnesium Level 1.7 mg/dL Total Bilirubin 1.1 mg/dL Aspartate Amino Transf (AST/SGOT) 74 U/L Alanine Aminotransferase (ALT/SGPT) 61 U/L Alkaline Phosphatase 72 U/L Total Protein 7.5 g/dL Albumin 3.6 g/dL Albumin/Globulin Ratio 0.9 Lipase 156 U/L Ethyl Alcohol Level 47 mg/dL Current Medications Medications (Trade) Dose Ordered Sig/Jacqueline Route PRN Reason Start Time Stop Time Status Last Admin Dose Admin Multivitamins 10 ml/Thiamine HCl 100 mg/Folic Acid 1 mg/Sodium Chloride 1,011.2 ml @ 1,000.088 mls/hr 1X ONCE IV 10/29/20 08:45 12/21/19 09:45 DC 12/21/19 09:11 Ondansetron HCl (Zofran) 4 mg 1X ONCE IVP 12/21/19 08:45 12/21/19 08:46 DC 12/21/19 09:11 Lorazepam (Ativan Inj) 2 mg 1X ONCE IVP 12/21/19 08:45 12/21/19 08:46 DC 12/21/19 09:11 Vital Signs: Vital Signs Date Time Temp Pulse Resp B/P (MAP) Pulse Ox O2 Delivery O2 Flow Rate FiO2 12/21/19 10:18 117 21 176/103 (127) 92 Room Air 12/21/19 09:48 118 23 161/118 (132) 94 Room Air 12/21/19 09:18 111 16 156/101 (119) 94 Room Air 12/21/19 08:30 97.8 112 16 156/99 (118) 97 Room Air 97.8 EKG: EKG: [] EKG interpreted by wy sinus tachycardia with a rate of 108 left axis deviation, normal intervals, nonspecific ST changes Radiology/Procedures: Radiology/Procedures: [][facility] [address] [place], [place] [id number] IMAGING REPORT Signed PATIENT: PASQUALE ORELLANA ACCOUNT: [id number] : 1965 LOCATION: ER AGE: 54 SEX: M EXAM STATUS: REG ER ORD. PHYSICIAN: EDWIN HAMMER MD REASON: cough PROCEDURE: PORTABLE CHEST 1V EXAM: Chest, single view. HISTORY: Cough. COMPARISON: 03/21/2019 FINDINGS: A frontal view of the chest obtained. There is no infiltrate, pleural effusion or pneumothorax. The heart is normal in size. IMPRESSION: No acute pulmonary finding. Electronically signed by: Rosibel Oliveira MD (12/21/2019 8:50 AM) [id number] DICTATED and SIGNED BY: ROSIBEL OLIVEIRA MD DATE: 12/21/19 0850 Course & Med Decision Making: Course & Med Decision Making Pertinent Labs and Imaging studies reviewed. (See chart for details) [] 54-year-old male with a history of alcohol abuse and alcohol withdrawal seizures presents with alcohol withdrawal. Patient is tremulous and tachycardic on assessment. Patient received Ativan and banana bag and on reassessment he is clinically improved. Patient will need a medical admission prior to alcohol detox placement. Discussed the case with Dr. Govea who will admit, discussed the case with Gee from the PAT team who will consult. Brayan Disclaimer: Brayan Disclaimer: This electronic medical record was generated, in whole or in part, using a voice recognition dictation system. Departure Departure Impression: Primary Impression: Alcohol withdrawal Admitting Physician: DOLORES GORDON) Condition: STABLE Referrals: JARED MONTEMAYOR MD (PCP) EDWIN HAMMER MD Dec 21, 2019 08:43
[2019-12-21] MEDS ORDERED: MULTIVIT INFUSN,ADULT 4,VIT K 10 ML, THIAMINE INJ 100 MG, FOLIC ACID INJ 1 MG in IV NOR... IV ONE (08:45)
[2019-12-21] MEDS ORDERED: ONDANSETRON PF 4 MG/2 ML VIAL. IVP ONE (08:45)
--- NOTE | 2019-12-21 08:53 | RAD ---
EXAM: Chest, single view. HISTORY: Cough. COMPARISON: 03/21/2019 FINDINGS: A frontal view of the chest obtained. There is no infiltrate, pleural effusion or pneumothorax. The heart is normal in size. IMPRESSION: No acute pulmonary finding. Electronically signed by: Rosibel Hester MD (12/21/2019 8:50 AM) [id number]
[2019-12-21 08:55] LABS: BASO % 1 % (0-3); EOS % 0 % (0-3); LYMPH # 2.4 x10^3/uL (1.0-4.8); LYMPH % 30 % (24-48); MEAN CORPUSCULAR HEMOGLOBIN 21 pg (25-35); MEAN CORPUSCULAR HGB CONC 31 g/dL (31-37); MEAN CORPUSCULAR VOLUME 69 fL (79-100); MONO # 0.6 x10^3/uL (0.0-1.1); MONO % 8 % (0-9); NEUT % 62 % (31-73); PLATELET COUNT 138 x10^3/uL (140-400); RED BLOOD COUNT 5.63 x10^6/uL (4.30-5.70); RED CELL DISTRIBUTION WIDTH 24.3 % (11.5-14.5); WHITE BLOOD COUNT 8.2 x10^3/uL (4.0-11.0)
[2019-12-21 09:04] LABS: CALCIUM 9.1 mg/dL (8.5-10.1); CREATININE 0.8 mg/dL (0.7-1.3); POTASSIUM 3.4 mmol/L (3.5-5.1)
[2019-12-21 09:07] LABS: PROTHROMBIN TIME PATIENT 13.5 SEC (11.7-14.0)
[2019-12-21 09:10] LABS: ALBUMIN 3.6 g/dL (3.4-5.0); ALBUMIN/GLOBULIN RATIO 0.9 (1.0-1.7); MAGNESIUM 1.7 mg/dL (1.8-2.4); TOTAL BILIRUBIN 1.1 mg/dL (0.2-1.0); TOTAL PROTEIN 7.5 g/dL (6.4-8.2)
[2019-12-21 09:35] LABS: ANISOCYTOSIS SLIGHT; HYPOCHROMIA PRESENT; PLT ESTIMATE DECREASED (ADEQUATE); TARGET CELLS FEW
[2019-12-21 09:36] LABS: OVALOCYTES OCC
[2019-12-21 09:37] LABS: MICROCYTOSIS PRESENT
[2019-12-21] MEDS ORDERED: ONDANSETRON PF 4 MG/2 ML VIAL. IV PRN (09:45)
[2019-12-21 11:00] VITALS: BP 162/102
[2019-12-21] MEDS ORDERED: FLU VACC QS 2020-21(6MOS+)/PF 0.5 ML SYRINGE. VAX IM ONE (11:30)
--- NOTE | 2019-12-21 12:30 | HP ---
ADMIT DATE: 12/21/2019 CHIEF COMPLAINT: Alcohol withdrawal. HISTORY OF PRESENT ILLNESS: The patient is a pleasant 54-year-old male who drinks a liter of vodka a day. He is having alcohol withdrawal. He wants to stop drinking. His last drink was last night. Now, he is trembling. He has associated weakness. In the past, he has had alcohol withdrawal seizures, but we have not seen any seizures as of yet. He would like to be admitted for alcohol withdrawal protocol. PAST MEDICAL HISTORY: Hypertension, alcoholism, seizures from alcohol abuse, left ankle surgery, abdominal benign tumor, tobacco abuse. ALLERGIES: None. FAMILY HISTORY: Diabetes. 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 He drinks and smokes. I do not think he takes drugs. MEDICATIONS: Reviewed, please refer to the MRAD. REVIEW OF SYSTEMS: GENERAL: No history of weight change, weakness or fevers. SKIN: No bruising, hair changes or rashes. EYES: No blurred, double or loss of vision. NOSE AND THROAT: No history of nosebleeds, hoarseness or sore throat. HEART: No history of palpitations, chest pain or shortness of breath on exertion. LUNGS: Denies cough, hemoptysis, wheezing or shortness of breath. GASTROINTESTINAL: Denies changes in appetite, nausea, vomiting, diarrhea or constipation. GENITOURINARY: No history of frequency, urgency, hesitancy or nocturia. NEUROLOGIC: He complains of shaking. PSYCHIATRIC: He complains of depression. ENDOCRINE: No history of heat or cold intolerance, polyuria or polydipsia. EXTREMITIES: Denies muscle weakness, joint pain, pain on walking or stiffness. PHYSICAL EXAMINATION: VITALS: Within normal limits and are stable. GENERAL: No apparent distress. Alert and oriented. HEENT: Normal cephalic atraumatic, external auditory canals are patent. Eyes: Extraocular muscles are intact, pupils are equally round and reactive to light and accommodation. MUSCULOSKELETAL: Well developed, well nourished, good range of motion. ENDOCRINE: No thyromegaly was palpated. LYMPHATICS: No cervical chain or axillary nodes were noted. HEMATOPOIETIC: No bruising. NECK: Supple, no JVD, no thyromegaly was noted. LUNGS: Clear to auscultation in all lung reno without rhonchi or wheezing. HEART: RRR, S1, S2 present. Peripheral pulses intact, no obvious murmurs were noted. ABDOMEN: Soft, nontender. Positive bowel sounds no organomegaly, normal bowel sounds. EXTREMITIES: Without any cyanosis, clubbing, or edema. Pedal pulses intact, Homans sign is negative. NEUROLOGIC: Normal speech, normal tone. A and O x 3, moves all extremities, no obvious focal deficits. PSYCHIATRIC: Normal affect, normal mood. Stable. SKIN: No ulcerations or rashes, good skin turgor, no jaundice. VASCULAR: Good capillary refill, neurovascular bundle appears to be intact. ASSESSMENT AND PLAN: Alcohol withdrawal. The patient has been admitted. We will use alcohol withdrawal protocol. I ordered IV banana bags, IV Ativan. We will have the psychiatric assessment team evaluate him. [employer] for alcohol treatment program after discharge if possible. Multiple vitamins, p.r.jhoan Spears. NIAL Lisandra HOUSTON DO DR: KATE/carmela JOB#: [id number] / [id number]
[2019-12-21 15:00] VITALS: BP 161/98
[2019-12-21] MEDS ORDERED: ACETAMINOPHEN 325 MG TABLET. PO PRN (15:45)
[2019-12-21] MEDS: cloNIDine HCL 0.1 MG TABLET PO SCH ×2 (16:38→21:44)
[2019-12-21] MEDS: IV NORMAL SALINE 1000ML BAG 1,000 ML IV SCH (17:37)
[2019-12-21 19:00] VITALS: BP 146/92
[2019-12-21 23:00] VITALS: BP 146/101
[2019-12-22] MEDS: IV NORMAL SALINE 1000ML BAG 1,000 ML IV SCH ×3 (02:46→20:50)
[2019-12-22 03:45] VITALS: BP 146/102
[2019-12-22] MEDS: cloNIDine HCL 0.1 MG TABLET PO SCH ×3 (06:13→20:48)
[2019-12-22 07:00] VITALS: BP 150/102
[2019-12-22] MEDS: MULTIVIT INFUSN,ADULT 4,VIT K 10 ML, THIAMINE INJ 100 MG, FOLIC ACID INJ 1 MG in IV NOR... IV SCH (09:15)
[2019-12-22 11:00] VITALS: BP 126/82
[2019-12-22] MEDS ORDERED: POTASSIUM CHLORIDE 20 MEQ TABLET.ER. PO ONE (11:45)
--- NOTE | 2019-12-22 11:58 | PDOC ---
[employer] PROGRESS NOTE Date of Service DOS: DATE: 12/22/19 TIME: 11:33 Chief Complaint Chief Complaint A/P: Alcohol withdrawal - CIWA scale, add gabapentin H/o seizures. long hx alcohol abuse ct abd 03/13 51 x 39 mm lesser curvature gastric mass with no evidence of extension into the lesser sac or perigastric tissues.Segment 2 liver mass measuring up to 18 mm suspicious for metastasis. GIST tumor (lesser curve of stomach, benign appearance with ulcers, good margins), liver biopsy c/w steatosis Bilateral anterior temporomandibular joint dislocations. 10/07, healed well Plan: IOP at [facility], has been there previously. alcohol withdrawal protocol, History of Present Illness History of Present Illness Mr Lozada is a 54yo male who comes for help with ETOH withdrawal. He is drinking vodka daily about a liter a day. We have had him in before with alcohol withdrawal. Admitted for having seizures previously in September 2019 and he was discharged to [facility]. K 3.4, Mg 1.7, ETOH level on 12/20 in the evening was 47 Today he is urinating in the trash can. Has some tremors and is required Ativan every 2 hours for his elevated CIWA scale. He is amenable to discussing alcohol rehab at [facility]. Vitals/I&O Vitals/I&O: Vital Signs Date Time Temp Pulse Resp B/P (MAP) Pulse Ox O2 Delivery O2 Flow Rate FiO2 12/22/19 11:00 98.4 92 18 126/82 (97) 95 Room Air 98.4 I & O 12/21/19 12/21/19 12/22/19 15:00 23:00 07:00 Intake Total 250 ml 250 ml Output Total 0 ml 200 ml 700 ml Balance 250 ml 50 ml -700 ml Physical Exam General: Alert, Cooperative Heart: Regular rate, Normal S1, Normal S2 Lungs: Clear Abdomen: Normal bowel sounds, Soft Extremities: No clubbing, No cyanosis Skin: No rashes, No breakdown Comment Review of Relevant I have reviewed the following items lana (where applicable) has been applied. Medications: Current Medications Medications (Trade) Dose Ordered Sig/Jacqueline Route PRN Reason Start Time Stop Time Status Last Admin Dose Admin Multivitamins 10 ml/Thiamine HCl 100 mg/Folic Acid 1 mg/Sodium Chloride 1,011.2 ml @ 125 mls/ hr DAILY IV 12/22/19 09:00 12/22/19 09:15 Acetaminophen (Tylenol) 650 mg PRN Q6HRS PRN PO MILD PAIN / TEMP > 100.3'F 12/21/19 15:45 12/21/19 15:52 Clonidine HCl (Catapres) 0.1 mg Q8HRS PO 12/21/19 16:00 12/22/19 06:13 Sodium Chloride 1,000 ml @ 100 mls/hr Q10H IV 12/21/19 17:30 12/22/19 02:46 Justifications for Admission Other Justification DYAN SANDOVAL MD Dec 22, 2019 11:58
[2019-12-22 12:59] LABS: CALCIUM 8.1 mg/dL (8.5-10.1); CREATININE 0.9 mg/dL (0.7-1.3); GFR 87.3; POTASSIUM 3.5 mmol/L (3.5-5.1)
[2019-12-22 14:39] VITALS: BP 134/84
[2019-12-22] MEDS: GABAPENTIN 100 MG CAPSULE. PO SCH ×2 (14:59→20:48)
--- NOTE | 2019-12-22 17:23 | NUR ---
SW following for discharge planning. Spoke with RN and reviewed chart. SW consulted r/t ETOH. Pt was recently at [facility] per chart review. Referral made to Santi with PAT. Pt assessed by Karrie with [facility]. Pt provided with resources r/t ETOH per Karrie. Pt plans to follow up with Al on discharge. Pt on room air, IV fluids, cardiac diet. No further SW needs identified. Pt to discharge self-care when stable.
[2019-12-22 19:00] VITALS: BP 136/89
[2019-12-22 23:00] VITALS: BP 141/106
[2019-12-23 03:00] VITALS: BP 121/83
[2019-12-23] MEDS: cloNIDine HCL 0.1 MG TABLET PO SCH ×2 (06:23→14:42)
[2019-12-23 07:00] VITALS: BP 146/94
--- NOTE | 2019-12-23 08:41 | PDOC ---
[employer] PROGRESS NOTE Date of Service DOS: DATE: 12/23/19 TIME: 08:40 Chief Complaint Chief Complaint A/P: Alcohol withdrawal - CIWA scale, add gabapentin H/o seizures. long hx alcohol abuse ct abd 03/13 51 x 39 mm lesser curvature gastric mass with no evidence of extension into the lesser sac or perigastric tissues.Segment 2 liver mass measuring up to 18 mm suspicious for metastasis. GIST tumor (lesser curve of stomach, benign appearance with ulcers, good margins), liver biopsy c/w steatosis Bilateral anterior temporomandibular joint dislocations. 10/07, healed well Plan: IOP at [facility], has been there previously. alcohol withdrawal protocol, History of Present Illness History of Present Illness Mr Lozada is a 54yo M who comes for help with ETOH withdrawal. He is drinking vodka daily about a liter a day. We have had him in before with alcohol withdrawal. Admitted for having seizures previously in September 2019 and he was discharged to [facility]. K 3.4, Mg 1.7, ETOH level on 12/20 in the evening was 47 12/21: Today he is urinating in the trash can. Has some tremors and is required Ativan every 2 hours for his elevated CIWA scale. He is amenable to discussing alcohol rehab at [facility]. Feeling better today. no NV. CIWA 0-8 today. plans to f/u at [facility] Vitals/I&O Vitals/I&O: Vital Signs Date Time Temp Pulse Resp B/P (MAP) Pulse Ox O2 Delivery O2 Flow Rate FiO2 12/23/19 07:00 98.2 73 18 146/94 (111) 98 Room Air 98.2 I & O 12/22/19 12/22/19 12/23/19 15:00 23:00 07:00 Intake Total 600 ml 300 ml Output Total 1600 ml 900 ml Balance 600 ml -1300 ml -900 ml Physical Exam General: Alert, Cooperative Heart: Regular rate, Normal S1, Normal S2 Lungs: Clear Abdomen: Normal bowel sounds, Soft Extremities: No clubbing, No cyanosis Skin: No rashes, No breakdown Labs Labs: Laboratory Tests Test 12/22/19 12:35 Sodium Level 138 mmol/L (136-145) Potassium Level 3.5 mmol/L (3.5-5.1) Chloride Level 102 mmol/L (98-107) Carbon Dioxide Level 25 mmol/L (21-32) Anion Gap 11 (6-14) Blood Urea Nitrogen 7 mg/dL (8-26) Creatinine 0.9 mg/dL (0.7-1.3) Estimated GFR (Cockcroft-Gault) 87.3 Glucose Level 123 mg/dL (70-99) Calcium Level 8.1 mg/dL (8.5-10.1) Comment Review of Relevant I have reviewed the following items lana (where applicable) has been applied. Medications: Current Medications Medications (Trade) Dose Ordered Sig/Jacqueline Route PRN Reason Start Time Stop Time Status Last Admin Dose Admin Multivitamins 10 ml/Thiamine HCl 100 mg/Folic Acid 1 mg/Sodium Chloride 1,011.2 ml @ 125 mls/ hr DAILY IV 12/22/19 09:00 12/22/19 09:15 Potassium Chloride (Klor-Con) 40 meq 1X ONCE PO 12/22/19 11:45 12/22/19 11:46 DC 12/22/19 12:20 Gabapentin (Neurontin) 100 mg TID PO 12/22/19 14:00 12/22/19 20:48 Justifications for Admission Other Justification DYAN SANDOVAL MD Dec 23, 2019 08:41
[2019-12-23] MEDS: MULTIVIT INFUSN,ADULT 4,VIT K 10 ML, THIAMINE INJ 100 MG, FOLIC ACID INJ 1 MG in IV NOR... IV SCH (09:01)
[2019-12-23] MEDS: IV NORMAL SALINE 1000ML BAG 1,000 ML IV SCH (09:02)
[2019-12-23] MEDS: GABAPENTIN 100 MG CAPSULE. PO SCH ×2 (09:02→14:41)
[2019-12-23 11:19] VITALS: BP 142/97
[2019-12-23] MEDS ORDERED: GABA300C18 PO (12:20)
[2019-12-23] MEDS ORDERED: LORA2TAB89 PO (12:20)
[2019-12-23] MEDS ORDERED: CLON0.1T12 PO (12:20)
--- NOTE | 2019-12-23 12:26 | PDOC3 ---
Discharge Summary Visit Information Date of Admission: Dec 21, 2019 Date of Discharge: Dec 23, 2019 Admitting Diagnosis: Alcohol withdrawal Final Diagnosis Alcohol withdrawal Brief Hospital Course Allergies Allergies Coded Allergies Type Severity Reaction Last Updated Verified No Known Drug Allergies 03/20/19 No Vital Signs Vital Signs Date Time Temp Pulse Resp B/P (MAP) Pulse Ox O2 Delivery O2 Flow Rate FiO2 12/23/19 11:19 98.0 79 18 142/97 (112) 98 Room Air 98.0 Lab Results Laboratory Tests Test 12/22/19 12:35 Sodium Level 138 mmol/L (136-145) Potassium Level 3.5 mmol/L (3.5-5.1) Chloride Level 102 mmol/L (98-107) Carbon Dioxide Level 25 mmol/L (21-32) Anion Gap 11 (6-14) Blood Urea Nitrogen 7 mg/dL (8-26) Creatinine 0.9 mg/dL (0.7-1.3) Estimated GFR (Cockcroft-Gault) 87.3 Glucose Level 123 mg/dL (70-99) Calcium Level 8.1 mg/dL (8.5-10.1) Laboratory Tests Test 12/22/19 12:35 Sodium Level 138 mmol/L (136-145) Potassium Level 3.5 mmol/L (3.5-5.1) Chloride Level 102 mmol/L (98-107) Carbon Dioxide Level 25 mmol/L (21-32) Anion Gap 11 (6-14) Blood Urea Nitrogen 7 mg/dL (8-26) Creatinine 0.9 mg/dL (0.7-1.3) Estimated GFR (Cockcroft-Gault) 87.3 Glucose Level 123 mg/dL (70-99) Calcium Level 8.1 mg/dL (8.5-10.1) Brief Hospital Course Mr Lozada is a 54yo M who comes for help with ETOH withdrawal. He is drinking vodka daily about a liter a day. We have had him in before with alcohol withdrawal. Admitted for having seizures previously in September 2019 and he was discharged to [facility]. K 3.4, Mg 1.7, ETOH level on 12/20 in the evening was 47 10/: Today he is urinating in the trash can. Has some tremors and is required Ativan every 2 hours for his elevated CIWA scale. He is amenable to discussing alcohol rehab at [facility]. Feeling better today. no NV. CIWA 0-8 today. plans to f/u at [facility] Problem list: Alcohol withdrawal - CIWA scale, add gabapentin H/o seizures. long hx alcohol abuse ct abd 03/13 51 x 39 mm lesser curvature gastric mass with no evidence of extension into the lesser sac or perigastric tissues.Segment 2 liver mass measuring up to 18 mm suspicious for metastasis. GIST tumor (lesser curve of stomach, benign appearance with ulcers, good margins), liver biopsy c/w steatosis Bilateral anterior temporomandibular joint dislocations. 10/07, healed well Plan: IOP at [facility], has been there previously. alcohol withdrawal protocol, Discharge Information Condition at Discharge: Improved Follow Up: Weeks (11) Disposition/Orders: D/C to Home Scheduled Clonidine Hcl (Catapres) 0.1 Mg Tablet, 0.1 MG PO Q8HRS for Alcohol withdrawal for 14 Days, #42 Prescribed by: DYAN SANDOVAL MD on 12/23/19 1220 Gabapentin (Gabapentin ) 300 Mg Capsule, 300 MG PO TID for NEUROGENIC PAIN/Alcohol withdr for 90 Days, #270 Prescribed by: DYAN SANDOVAL MD on 12/23/19 1220 Info (No Known Medications Prior To Admisstion) Each, 1 EACH 1X for none, (Reported) Entered as Reported by: RENALDO COUGHLIN on 06/06/19 0104 Last Action: Reviewed on 12/21/19 1108 by RON BARBOUR Scheduled PRN Lorazepam (Ativan) 2 Mg Tablet, 2 MG PO TID PRN for ALCOHOL WITHDRAWAL for 3 Days, #9 Prescribed by: DYAN SANDOVAL MD on 12/23/19 1221 Justicifation of Admission Dx: Justifications for Admission: Justification of Admission Dx: N/A DYAN SANDOVAL MD Dec 23, 2019 12:26
[2019-12-23 14:42] VITALS: BP 126/94
--- NOTE | 2019-12-23 15:15 | NUR ---
Discharge Note: Patient was discharged home with self care. Patients IV was discontinued per URIEL without complications. Patient was given discharge summary/instructions, follow-ups, and educational material. Patients prescriptions were transcribed to patients preferred pharmacy. Patient and family agreeable with discharge plans. Patient decided to ambulate to the main entrance accompanied by URIEL Silvestre and . Where was parked to take him home. Patient took all personal belongings with him.
== END 2019-12-23 15:18 | disposition short-term general hospital (02) | DRG 897 ==
LOC: ER 08:24 → 5 NORTH 09:36
PROVIDERS: ADMIT Internal Medicine; ATTEND Internal Medicine
DX: F10.239 Alcohol dependence with withdrawal, unspecified (principal); F10.229 Alcohol dependence with intoxication, unspecified; Z56.0 Unemployment, unspecified; I10 Essential (primary) hypertension; Z83.3 Family history of diabetes mellitus; Z87.891 Personal history of nicotine dependence
CPT/HCPCS: 36415; 71045; 80048; 80053; 83690; 83735; 85025; 85610; 85730; 90471; 90686; 93005; 96365; 96375; G0480; J2060; J2405; J3411; J3490; J7030; 99285-25; G0378

== ENCOUNTER 2020-03-28 08:45 | Inpatient (IN) | payer BC ==
[~2020-03-28] VITALS: Ht 180.3 cm; Wt 91.6 kg
[~2020-03-28 08:45] MED LIST changes: +CLON0.1T12 PO; +GABA300C18 PO
[2020-03-28] MEDS ORDERED: THIAMINE INJ 100 MG in IV DEXTROSE 5% 50 ML IV STA (09:04)
[2020-03-28] MEDS ORDERED: IV NORMAL SALINE 1000ML BAG 1,000 ML IV ONE (09:15)
[2020-03-28] MEDS ORDERED: ONDANSETRON PF 4 MG/2 ML VIAL. IVP ONE (09:15)
[2020-03-28 09:19] LABS: BASO # 0.1 x10^3/uL (0.0-0.2); BASO % 2 % (0-3); EOS % 0 % (0-3); HEMATOCRIT 37.2 % (39.0-53.0); HEMOGLOBIN 11.6 g/dL (13.0-17.5); LYMPH # 1.7 x10^3/uL (1.0-4.8); LYMPH % 26 % (24-48); MEAN CORPUSCULAR HEMOGLOBIN 23 pg (25-35); MEAN CORPUSCULAR HGB CONC 31 g/dL (31-37); MEAN CORPUSCULAR VOLUME 74 fL (79-100); MONO % 15 % (0-9); NEUT # 3.9 x10^3/uL (1.8-7.7); NEUT % 58 % (31-73); PLATELET COUNT 119 x10^3/uL (140-400); RED CELL DISTRIBUTION WIDTH 23.9 % (11.5-14.5); WHITE BLOOD COUNT 6.8 x10^3/uL (4.0-11.0)
--- NOTE | 2020-03-28 09:27 | PHYS DOC ---
Past Medical History Past Medical History: Alcoholism, Hypertension, Other Additional Past Medical Histor: seizures with alcohol withdrawl Past Surgical History: Other Additional Past Surgical Histo: L ANKLE, had benign tumor removed from abdomen last year Smoking Status: Never Smoker Alcohol Use: Heavy Drug Use: None General Adult EDM: Chief Complaint: WITHDRAWL HPI: HPI: Patient is a 54 year old male with a history of alcohol abuse presented to ER with anxiety, feeling that he might be in withdrawal from alcohol. Patient drinks heavily daily since he was young, patient last drink was last night. Patient has history of alcohol withdrawal seizures in the past. Patient denies any chest pain, no abdominal pain, no nausea vomiting. Patient denies any cough or fever. Patient denies suicidal ideation, denies homicidal ideation. Patient ran out of alcohol this morning. Patient's oxygen saturation is low, patient denies ever smoked. Patient said he fell and hurt his low back on giving of last year, he continued to have low back pain. Review of Systems: Review of Systems: Constitutional: Denies fever or chills. [] Eyes: Denies change in visual acuity. [] HENT: Denies nasal congestion or sore throat. [] Respiratory: Denies cough or shortness of breath. [] Cardiovascular: Denies chest pain or edema. [] GI: Denies abdominal pain, nausea, vomiting, bloody stools or diarrhea. [] : Denies dysuria. [] Musculoskeletal: Denies back pain or joint pain. [] Integument: Denies rash. [] Neurologic: Denies headache, focal weakness or sensory changes. [] Endocrine: Denies polyuria or polydipsia. [] Lymphatic: Denies swollen glands. [] Psychiatric: Positive for anxiety, denies suicidal ideation. Heart Score: Risk Factors: Risk Factors: DM, Current or recent (<one month) smoker, HTN, HLP, family hist ory of CAD, obesity. Risk Scores: Score 0 - 3: 2.5% MACE over next 6 weeks - Discharge Home Score 4 - 6: 20.3% MACE over next 6 weeks - Admit for Clinical Observation Score 7 - 10: 72.7% MACE over next 6 weeks - Early Invasive Strategies Current Medications: Current Medications Medications (Trade) Dose Ordered Sig/Jacqueline Start Time Stop Time Status Last Admin Dose Admin Lorazepam (Ativan Inj) 2 mg 1X ONCE 03/28/20 09:15 03/28/20 09:16 DC Ondansetron HCl (Zofran) 4 mg 1X ONCE 03/28/20 09:15 03/28/20 09:16 DC Sodium Chloride 1,000 ml @ 1,000 mls/hr 1X ONCE 03/28/20 09:15 03/28/20 10:14 Thiamine HCl 100 mg/Dextrose 51 ml @ 102 mls/hr 1X STAT 03/28/20 09:04 03/28/20 09:33 Allergies: Allergies: Allergies Coded Allergies Type Severity Reaction Last Updated Verified No Known Drug Allergies 03/20/19 No Physical Exam: PE: Constitutional: Well developed, well nourished, no acute distress, non-toxic appearance. [] HENT: Normocephalic, atraumatic, bilateral external ears normal, oropharynx moist, no oral exudates, nose normal. [] Eyes: PERRLA, EOMI, conjunctiva normal, no discharge. [] Neck: Normal range of motion, no tenderness, supple, no stridor. [] Cardiovascular: SINUS TACHYCARDIA, regular rhythm, no murmur [] Lungs & Thorax: Bilateral breath sounds clear to auscultation [] Abdomen: Bowel sounds normal, soft, no tenderness, no masses, no pulsatile masses. [] Skin: Warm, dry, no erythema, no rash. [] Back: No tenderness, no CVA tenderness. [] Extremities: No tenderness, no cyanosis, no clubbing, ROM intact, no edema. [] Neurologic: Alert and oriented X 3, normal motor function, normal sensory function, no focal deficits noted. [] Psychologic: Affect normal, judgement normal, mood normal. Appeared anxious. Current Patient Data: Labs: Laboratory Tests Test 03/28/20 09:02 03/28/20 11:50 White Blood Count 6.8 x10^3/uL Red Blood Count 5.00 x10^6/uL Hemoglobin 11.6 g/dL Hematocrit 37.2 % Mean Corpuscular Volume 74 fL Mean Corpuscular Hemoglobin 23 pg Mean Corpuscular Hemoglobin Concent 31 g/dL Red Cell Distribution Width 23.9 % Platelet Count 119 x10^3/uL Neutrophils (%) (Auto) 58 % Lymphocytes (%) (Auto) 26 % Monocytes (%) (Auto) 15 % Eosinophils (%) (Auto) 0 % Basophils (%) (Auto) 2 % Neutrophils # (Auto) 3.9 x10^3/uL Lymphocytes # (Auto) 1.7 x10^3/uL Monocytes # (Auto) 1.0 x10^3/uL Eosinophils # (Auto) 0.0 x10^3/uL Basophils # (Auto) 0.1 x10^3/uL Platelet Estimate Decreased Anisocytosis Slight Target Cells Occ Prothrombin Time 13.1 SEC Prothromb Time International Ratio 1.0 Activated Partial Thromboplast Time 28 SEC Sodium Level 142 mmol/L Potassium Level 3.9 mmol/L Chloride Level 102 mmol/L Carbon Dioxide Level 19 mmol/L Anion Gap 21 Blood Urea Nitrogen 13 mg/dL Creatinine 1.0 mg/dL Estimated GFR (Cockcroft-Gault) 77.3 BUN/Creatinine Ratio 13 Glucose Level 113 mg/dL Calcium Level 9.1 mg/dL Magnesium Level 1.9 mg/dL Total Bilirubin 0.7 mg/dL Aspartate Amino Transf (AST/SGOT) 89 U/L Alanine Aminotransferase (ALT/SGPT) 83 U/L Alkaline Phosphatase 80 U/L Total Protein 7.3 g/dL Albumin 3.7 g/dL Albumin/Globulin Ratio 1.0 Lipase 231 U/L Ethyl Alcohol Level 160 mg/dL Urine Opiates Screen Neg Urine Methadone Screen Neg Urine Barbiturates Neg Urine Phencyclidine Screen Neg Urine Amphetamine/Methamphetamine Neg Urine Benzodiazepines Screen Neg Urine Cocaine Screen Neg Urine Cannabinoids Screen Neg Urine Ethyl Alcohol Pos Current Medications Medications (Trade) Dose Ordered Sig/Jacqueline Route PRN Reason Start Time Stop Time Status Last Admin Dose Admin Lorazepam (Ativan Inj) 2 mg 1X ONCE IVP 03/28/20 09:15 03/28/20 09:16 DC 03/28/20 09:28 Sodium Chloride 1,000 ml @ 1,000 mls/hr 1X ONCE IV 03/28/20 09:15 03/28/20 10:14 DC 03/28/20 09:27 Thiamine HCl 100 mg/Dextrose 51 ml @ 102 mls/hr 1X STAT IV 03/28/20 09:04 03/28/20 09:33 DC 03/28/20 09:28 Ondansetron HCl (Zofran) 4 mg 1X ONCE IVP 03/28/20 09:15 03/28/20 09:16 DC 03/28/20 09:28 Lorazepam (Ativan Inj) 2 mg 1X ONCE IVP 03/28/20 10:45 03/28/20 10:46 DC 03/28/20 11:20 Chlordiazepoxide (Librium) 50 mg 1X ONCE PO 03/28/20 11:45 03/28/20 11:46 DC Vital Signs: Vital Signs Date Time Temp Pulse Resp B/P (MAP) Pulse Ox O2 Delivery O2 Flow Rate FiO2 03/28/20 08:50 97.6 119 22 178/104 (128) 93 Room Air 97.6 EKG: EKG: [] Radiology/Procedures: Radiology/Procedures: [][facility] [address] [place] [address] IMAGING REPORT Signed PATIENT: PASQUALE ORELLANA ACCOUNT: [id number] : 1965 LOCATION: ER AGE: 54 SEX: M EXAM STATUS: REG ER ORD. PHYSICIAN: BIJAN SMALL DO REASON: soa, hypoxia PROCEDURE: CT ANGIOGRAPHY CHEST PQRS Compliance Statement: One or more of the following individualized dose reduction techniques were utilized for this examination: 1. Automated exposure control 2. Adjustment of the mA and/or kV according to patient size 3. Use of iterative reconstruction technique CTA CHEST 03/28/2020 12:28 PM INDICATION: Shortness of air, hypoxia COMPARISON: None available TECHNIQUE: Axial CT images of the chest were obtained after the intravenous administration of nonionic contrast. Coronal and sagittal reformats are prov ided. Maximum intensity projection images of the thoracic vasculature are provided. FINDINGS: The thyroid gland is normal in appearance. There are no pathologically enlarged axillary, mediastinal or hilar lymph nodes. Mild cardiomegaly. No significant pe ricardial effusion. There is ectasia of the ascending thoracic aorta measuring up to 4.4 cm. There is a linear filling defect along the ascending aorta which may be secondary to respiratory motion, although a dissection flap may have similar appearance. There is suboptimal opacification of the pulmonary arterial system with limited evaluation of the segmental and subsegmental pulmonary arteries. There there are no filling defects within the pulmonary arterial system to suggest acute or chronic pulmonary embolus. There are no suspicious solid noncalcified pulmonary nodules. Bandlike consolidative change in the medial right lung base may represent subsegmental atelectasis versus developing infiltrate. Mild pulmonary vascular congestion. No significant pleural effusions or pneumothorax. There are severe hepatic steatosis. Kidneys are normal. There is a gastrohepatic lymph node which is nonenlarged measuring 8 mm. IMPRESSION: There is no evidence for acute or chronic pulmonary embolism, although there is suboptimal opacification of the segmental and subsegmental pulmonary arteries. Ectasia of the ascending thoracic aorta measuring 4.4 cm. There is a linear filling defect along the ascending arch extending to the aortic root which could represent respiratory motion versus a dissection flap. Without history of chest pain or hypertension, findings favor motion. Further characterization with cardiac gated CTA versus MRA thorax could be of benefit. Mild cardiomegaly. Mild pulmonary vascular congestion. Constellation of findings could represent congestive heart failure. Bandlike density at the medial right lung base may represent subsegmental atelectasis versus developing infiltrate. Severe hepatic steatosis. FOR INTERNAL CODING PURPOSES Critical result: Findings discussed with Dr. Small at 03/28/2020 1:22 PM. RESULT CODE: (C) Electronically signed by: Carlos Elizabeth MD (03/28/2020 1:22 PM) [facility] DICTATED and SIGNED BY: CARLOS ELIZABETH MD DATE: 03/28/20 [id number] [facility] [address] [place], [place] [id number] IMAGING REPORT Signed PATIENT: PASQUALE ORELLANA ACCOUNT: [id number] : 1965 LOCATION: ER AGE: 54 SEX: M EXAM STATUS: REG ER ORD. PHYSICIAN: BIJAN SMALL DO REASON: lower back pain, fell 3 days ago PROCEDURE: LUMBAR SPINE 2-3V XR LUMBAR SPINE 2-3V Clinical Indication: Reason: lower back pain, fell 3 days ago Comparison: CT abdomen and pelvis with contrast March 01, 2019. Findings: There is old compression fracture and vertical fracture of the L2 vertebral body. Sacroiliac joints appear symmetric. The vertebral body alignment is maintained. There is degenerative endplate spurring. There is mild disc space narrowing of L5/S1. Other disc spaces are maintained. No other loss of vertebral body height. IMPRESSION: 1. Redemonstrated compression and vertical fractures of the L2 vertebral body. No retropulsion. 2. Vertebral body heights otherwise maintained. Electronically signed by: Lester Trimble MD (03/28/2020 10:22 AM) [id number] DICTATED and SIGNED BY: LESTER TRIMBLE MD DATE: 03/28/20 [id number] Course & Med Decision Making: Course & Med Decision Making Pertinent Labs and Imaging studies reviewed. (See chart for details) Patient had no chest pain, he has no cough, no fever. CT scan did not show PE. He is however still hypoxic. It is suspect that he might have dilated cardiomyopathy due to alcohol consumption. We will admit him to hospital for further evaluation and treatment. Brayan Disclaimer: Brayan Disclaimer: This electronic medical record was generated, in whole or in part, using a voice recognition dictation system. Departure Departure Impression: Primary Impression: Alcohol abuse Additional Impressions: Alcohol withdrawal Hypoxia Disposition: ADMITTED INPT THIS HOSP Admitting Physician: DOLORES (Dr. LARRY) Condition: STABLE (DR. LARRY) Referrals: NO PCP (PCP) BIJAN SMALL DO Mar 28, 2020 09:27
[2020-03-28 09:29] LABS: PROTHROMBIN TIME PATIENT 13.1 SEC (11.7-14.0)
[2020-03-28 09:32] LABS: CALCIUM 9.1 mg/dL (8.5-10.1); GFR 77.3; POTASSIUM 3.9 mmol/L (3.5-5.1)
[2020-03-28 09:38] LABS: ALBUMIN 3.7 g/dL (3.4-5.0); MAGNESIUM 1.9 mg/dL (1.8-2.4); TOTAL BILIRUBIN 0.7 mg/dL (0.2-1.0); TOTAL PROTEIN 7.3 g/dL (6.4-8.2)
[2020-03-28 09:57] LABS: ANISOCYTOSIS SLIGHT; PLT ESTIMATE DECREASED (ADEQUATE)
[2020-03-28 09:58] LABS: TARGET CELLS OCC
--- NOTE | 2020-03-28 10:13 | RAD ---
XR CHEST 1V Clinical Indication: Reason: hypoxia / Comparison: AP chest December 21, 2019. Findings: The cardiomediastinal silhouette is normal. Discoid atelectasis or scarring in the peripheral right m idlung. Lungs are otherwise clear. There is no pneumothorax. No pleural effusion is appreciated. No a cute bone abnormality. There is moderate degenerative endplate spurring. IMPRESSION: Discoid atelectasis or scarring in the peripheral right midlung. Electronically signed by: Lester Trimble MD (03/28/2020 10:10 AM) [id number]
--- NOTE | 2020-03-28 10:24 | RAD ---
XR LUMBAR SPINE 2-3V Clinical Indication: Reason: lower back pain, fell 3 days ago Comparison: CT abdomen and pelvis with contrast March 01, 2019. Findings: There is old compression fracture and vertical fracture of the L2 vertebral body. Sacroiliac joints a ppear symmetric. The vertebral body alignment is maintained. There is degenerative endplate spurring. There is mild disc space narrowing of L5/S1. Other disc spaces are maintained. No other loss of vert ebral body height. IMPRESSION: 1. Redemonstrated compression and vertical fractures of the L2 vertebral body. No retropulsion. 2. Vertebral body heights otherwise maintained. Electronically signed by: Lester Trimble MD (03/28/2020 10:22 AM) [id number]
[2020-03-28] MEDS ORDERED: chlordiazePOXIDE HCL 25 MG CAPSULE PO ONE (11:45)
[2020-03-28 12:16] LABS: BILIRUBIN,URINE NEGATIVE (NEG); CLARITY,URINE CLEAR; COLOR,URINE AMBER; NITRITE,URINE NEGATIVE (NEG); PH,URINE 6.5 (<5.0-8.0); PROTEIN,URINE 30 mg/dL (NEG-TRACE)
[2020-03-28 12:23] LABS: AMPHETAMINE/METHAMPHETAMINE NEG (NEG); BARBITURATES NEG (NEG); BENZODIAZEPINES NEG (NEG); CANNABINOIDS NEG (NEG); COCAINE NEG (NEG); METHADONE NEG (NEG); OPIATES NEG (NEG); PHENCYCLIDINE NEG (NEG)
[2020-03-28] MEDS ORDERED: IOHEXOL 350 MG/ML 100 ML VIAL. IV ONE (12:30)
[2020-03-28] MEDS ORDERED: CONTRAST GIVEN. MC PRN (12:30)
[2020-03-28 12:33] LABS: HYALINE CASTS, URINE MODERATE /HPF
[2020-03-28 12:34] LABS: BACTERIA,URINE 0 /HPF (0-FEW); RBC,URINE OCC /HPF (0-2)
--- NOTE | 2020-03-28 13:25 | RAD ---
PQRS Compliance Statement: One or more of the following individualized dose reduction techniques were utilized for this examinat ion: 1. Automated exposure control 2. Adjustment of the mA and/or kV according to patient size 3. Use of iterative reconstruction technique CTA CHEST 03/28/2020 12:28 PM INDICATION: Shortness of air, hypoxia COMPARISON: None available TECHNIQUE: Axial CT images of the chest were obtained after the intravenous administration of nonioni c contrast. Coronal and sagittal reformats are provided. Maximum intensity projection images of the t horacic vasculature are provided. FINDINGS: The thyroid gland is normal in appearance. There are no pathologically enlarged axillary, mediastinal or hilar lymph nodes. Mild cardiomegaly. No significant pericardial effusion. There is ectasia of th e ascending thoracic aorta measuring up to 4.4 cm. There is a linear filling defect along the ascendi ng aorta which may be secondary to respiratory motion, although a dissection flap may have similar ap pearance. There is suboptimal opacification of the pulmonary arterial system with limited evaluation of the seg mental and subsegmental pulmonary arteries. There there are no filling defects within the pulmonary a rterial system to suggest acute or chronic pulmonary embolus. There are no suspicious solid noncalcified pulmonary nodules. Bandlike consolidative change in the me dial right lung base may represent subsegmental atelectasis versus developing infiltrate. Mild pulmon danyelle vascular congestion. No significant pleural effusions or pneumothorax. There are severe hepatic steatosis. Kidneys are normal. There is a gastrohepatic lymph node which is nonenlarged measuring 8 mm. IMPRESSION: There is no evidence for acute or chronic pulmonary embolism, although there is suboptimal opacificat ion of the segmental and subsegmental pulmonary arteries. Ectasia of the ascending thoracic aorta measuring 4.4 cm. There is a linear filling defect along the ascending arch extending to the aortic root which could represent respiratory motion versus a dissect ion flap. Without history of chest pain or hypertension, findings favor motion. Further characterizat ion with cardiac gated CTA versus MRA thorax could be of benefit. Mild cardiomegaly. Mild pulmonary vascular congestion. Constellation of findings could represent mary estive heart failure. Bandlike density at the medial right lung base may represent subsegmental atele ctasis versus developing infiltrate. Severe hepatic steatosis. FOR INTERNAL CODING PURPOSES Critical result: Findings discussed with Dr. Horvath at 03/28/2020 1:22 PM. RESULT CODE: (C) Electronically signed by: Raeann Cardenas MD (03/28/2020 1:22 PM) [facility]
[2020-03-28] MEDS ORDERED: ONDANSETRON PF 4 MG/2 ML VIAL. IV PRN (14:00)
[2020-03-28] MEDS ORDERED: METOCLOPRAMIDE HCL 10 MG/2 ML VIAL. IVP ONE (14:45)
[2020-03-28] MEDS ORDERED: CALCIUM CARBONATE 500 MG TAB.CHEW PO PRN (15:00)
[2020-03-28] MEDS ORDERED: cloNIDine HCL 0.1 MG TABLET PO PRN (15:00)
[2020-03-28] MEDS: GABAPENTIN 300 MG CAPSULE. PO SCH ×2 (15:00→22:12)
[2020-03-28] MEDS ORDERED: HYDROcodone/APAP 5/325MG 1 TAB TABLET PO PRN (15:00)
[2020-03-28] MEDS ORDERED: LORazepam 40 MG in IV NORMAL SALINE 250ML 250 ML IV PRN (15:00)
[2020-03-28] MEDS ORDERED: diphenhydrAMINE 50 MG/ML VIAL IVP PRN (15:00)
[2020-03-28] MEDS ORDERED: HALOPERIDOL LACTATE 5 MG/ML VIAL. IVP PRN (15:00)
[2020-03-28] MEDS ORDERED: IBUPROFEN 400 MG TABLET. PO PRN (15:00)
[2020-03-28] MEDS ORDERED: ACETAMINOPHEN 325 MG TABLET. PO PRN (15:00)
[2020-03-28] MEDS ORDERED: MAG HYDROX/ALUMINUM HYD/SIMETH 30 ML ORAL.SUSP PO PRN (15:00)
[2020-03-28] MEDS ORDERED: BISACODYL 10 MG SUPP.RECT. PR PRN (15:00)
[2020-03-28] MEDS ORDERED: PROCHLORPERAZINE 10 MG/2 ML VIAL. IVP PRN (15:00)
[2020-03-28] MEDS ORDERED: ONDANSETRON PF 4 MG/2 ML VIAL. IVP PRN (15:00)
[2020-03-28] MEDS ORDERED: MAGNESIUM HYDROXIDE 2,400 MG/30 ML ORAL.SUSP. PO PRN (15:00)
[2020-03-28] MEDS ORDERED: chlordiazePOXIDE HCL 25 MG CAPSULE PO PRN ×2 (15:00)
--- NOTE | 2020-03-28 15:08 | PDOC1 ---
History and Physical Date of Admission Date of Admission DATE: 03/28/20 TIME: 15:04 Identification/Chief Complaint Chief Complaint Alcohol withdrawal Source Source: Chart review, Patient History of Present Illness History of Present Illness Patient is a 54-year-old male past medical history of alcohol abuse, who presents to the ER after reportedly having an alcohol withdrawal seizure this morning. Seizure was reportedly witnessed by his on his couch this morning, and she brings him to the ER for treatment of withdrawal symptoms. He is admitted multiple times for alcohol withdrawal and seizures. States he dri nks around 1 pint of vodka daily his last drink was yesterday. After discussion with patient in the ER wanting treatment for his alcoholism is willing to go through a treatment program if available. He admits to alcohol relapse fall about 4 days ago with residual back pain. X-ray obtained in the ER showed redemonstrated compression and vertical fractures of the L2 vertebral body without retropulsion. CTA chest was obtained due to tachycardia. CTA was negative for PE but did note ectasia of the ascending thoracic aorta measuring 4.4 cm and a linear filling defect along the ascending arch extending to the aortic root which could represent respiratory motion versus a dissection flap. Without history of chest pain or hypertension, findings favor motion. Mild cardiomegaly and mild pulmonary vascular congestion noted. Patient denies chest pain or shortness of breath. Will admit patient for further medical management. Past Medical History Past Medical History Alcohol abuse, alcohol withdrawal seizures, hypertension Cardiovascular: No pertinent hx Pulmonary: No pertinent hx GI: No pertinent hx Heme/Onc: No pertinent hx Hepatobiliary: No pertinent hx Psych: No pertinent hx Rheumatologic: No pertinent hx Infectious disease: No pertinent hx Renal/: No pertinent hx Endocrine: No pertinent hx Past Surgical History Past Surgical History Left ankle surgery, abdominal tumor resection Past Surgical History: Other Family History Family History: No Significant, Other Social History Smoke: No ALCOHOL: heavy Drugs: None Current Problem List Problem List Problems Medical Problems: (1) Alcohol abuse Status: Acute (2) Hypoxia Status: Acute Current Medications Current Medications Current Medications Lorazepam (Ativan Inj) 2 mg 1X ONCE IVP Last administered on 03/28/20at 09:28; Start 03/28/20 at 09:15; Stop 03/28/20 at 09:16; Status DC Sodium Chloride 1,000 ml @ 1,000 mls/hr 1X ONCE IV Last administered on 03/28/20at 09:27; Start 03/28/20 at 09:15; Stop 03/28/20 at 10:14; Status DC Thiamine HCl 100 mg/Dextrose 51 ml @ 102 mls/hr 1X STAT IV Last administered on 03/28/20at 09:28; Start 03/28/20 at 09:04; Stop 03/28/20 at 09:33; Status DC Ondansetron HCl (Zofran) 4 mg 1X ONCE IVP Last administered on 03/28/20at 09:28; Start 03/28/20 at 09:15; Stop 03/28/20 at 09:16; Status DC Lorazepam (Ativan Inj) 2 mg 1X ONCE IVP Last administered on 03/28/20at 11:20; Start 03/28/20 at 10:45; Stop 03/28/20 at 10:46; Status DC Chlordiazepoxide (Librium) 50 mg 1X ONCE PO Last administered on 03/28/20at 13:37; Start 03/28/20 at 11:45; Stop 03/28/20 at 11:46; Status DC Iohexol (Omnipaque 350 Mg/ml) 100 ml 1X ONCE IV Last administered on 03/28/20at 12:54; Start 03/28/20 at 12:30; Stop 03/28/20 at 12:31; Status DC Info (CONTRAST GIVEN -- Rx MONITORING) 1 each PRN DAILY PRN MC SEE COMMENTS; Start 03/28/20 at 12:30; Stop 03/30/20 at 12:29 Ondansetron HCl (Zofran) 4 mg PRN Q8HRS PRN IV NAUSEA/VOMITING; Start 03/28/20 at 14:00; Stop 03/29/20 at 13:59 Metoclopramide HCl (Reglan Vial) 10 mg 1X ONCE IVP ; Start 03/28/20 at 14:45; Stop 03/28/20 at 14:52; Status DC Thiamine HCl 100 mg/Folic Acid 1 mg/Sodium Chloride 1,001.2 ml @ 99.012 mls/hr DAILY IV ; Start 03/28/20 at 16:00; Stop 04/01/20 at 19:07 Multivitamins (Thera M Plus) 1 tab DAILY PO ; Start 04/02/20 at 09:00 Folic Acid (Folic Acid) 1 mg DAILY PO ; Start 04/02/20 at 09:00; Status UNV Thiamine Mononitrate (Vitamin B-1) 100 mg DAILY PO ; Start 04/02/20 at 09:00; Status UNV Chlordiazepoxide (Librium) 50 mg PRN Q1HR PRN PO For CIWA 8-14; Start 03/28/20 at 15:00; Status UNV Chlordiazepoxide (Librium) 100 mg PRN Q1HR PRN PO For CIWA 15 or greater; Start 03/28/20 at 15:00; Status UNV Lorazepam (Ativan) 4 mg PRN Q1HR PRN PO For CIWA 8-14; Start 03/28/20 at 15:00; Status UNV Lorazepam (Ativan) 8 mg PRN Q1HR PRN PO For CIWA 15 or greater; Start 03/28/20 at 15:00; Status UNV Lorazepam (Ativan Inj) 2 mg PRN Q1HR PRN IV For CIWA 8-14; Start 03/28/20 at 15:00; Status UNV Lorazepam (Ativan Inj) 4 mg PRN Q1HR PRN IV For CIWA 15 or greater; Start 03/28/20 at 15:00; Status UNV Haloperidol Lactate (Haldol Inj) 5 mg PRN Q4HRS PRN IVP Hallucinatns,Co nfusn,Delirium; Start 03/28/20 at 15:00; Status UNV Diphenhydramine HCl (Benadryl) 25 mg PRN Q15MIN PRN IVP EPS symptoms 2'Haldol admin; Start 03/28/20 at 15:00; Status UNV Clonidine HCl (Catapres) 0.1 mg PRN Q1HR PRN PO SBP > 180 or DBP > 100, MRX3; Start 03/28/20 at 15:00; Status UNV Lorazepam (Ativan Inj) 2 mg PRN Q15MIN PRN IV SEE COMMENTS; Start 03/28/20 at 15:00; Status UNV Lorazepam (Ativan Inj) 4 mg PRN Q15MIN PRN IV SEE COMMENTS; Start 03/28/20 at 15:00; Status UNV Lorazepam 40 mg/ Sodium Chloride 270 ml @ 13.5 mls/hr CONT PRN IV PER PROTOCOL; Start 03/28/20 at 15:00; Status UNV Gabapentin (Neurontin) 300 mg TID PO ; Start 03/28/20 at 21:00; Status UNV Active Scripts Active Ativan (Lorazepam) 2 Mg Tablet 2 Mg PO TID PRN 3 Days Gabapentin (Gabapentin) 300 Mg Capsule 300 Mg PO TID 90 Days Catapres (Clonidine Hcl) 0.1 Mg Tablet 0.1 Mg PO Q8HRS 14 Days Reported No Known Medications Prior To Admisstion (Info) Each 1 Each MC 1X Allergies Allergies: Coded Allergies: No Known Drug Allergies (Unverified , 03/20/19) ROS Review of System GENERAL: No history of weight change, weakness or fevers. SKIN: No bruising, hair changes or rashes. EYES: No blurred, double or loss of vision. NOSE AND THROAT: No history of nosebleeds, hoarseness or sore throat. HEART: Denies chest pain, denies palpitations. LUNGS: Denies cough, hemoptysis, wheezing or shortness of breath. GASTROINTESTINAL: Denies nausea, vomiting, abdominal pain. GENITOURINARY: Denies dysuria, frequency, urgency, hematuria. NEUROLOGIC: Alcohol withdrawal seizure. Denies history of numbness, tingling, tremor or weakness. PSYCHIATRIC: Denies anxiety, denies depression. ENDOCRINE: No history of heat or cold intolerance, polyuria or polydipsia. EXTREMITIES: Back pain. Denies muscle weakness, joint pain, pain on walking or stiffness. Physical Exam Physical Exam General: Alert, Oriented X3, Cooperative, No acute distress HEENT: PERRLA, EOMI Lungs: Clear to auscultation, Normal air movement Heart: Tachycardic. No murmurs Cardiovascular: S1, S2 Abdomen: Normal bowel sounds, Soft, No tenderness Extremities: No clubbing, No cyanosis Skin: No rashes, No significant lesion Neuro: Tremulous normal speech, Normal tone, Sensation intact Psych/Mental Status: Mental status NL, Mood NL Vitals Vitals Vital Signs Date Time Temp Pulse Resp B/P (MAP) Pulse Ox O2 Delivery O2 Flow Rate FiO2 03/28/20 12:46 116 154/96 (115) 94 Room Air 03/28/20 08:50 97.6 22 97.6 Labs Labs Laboratory Tests Test 03/28/20 09:02 03/28/20 09:05 03/28/20 11:50 White Blood Count 6.8 x10^3/uL (4.0-11.0) Red Blood Count 5.00 x10^6/uL (4.30-5.70) Hemoglobin 11.6 g/dL (13.0-17.5) Hematocrit 37.2 % (39.0-53.0) Mean Corpuscular Volume 74 fL (79-100) Mean Corpuscular Hemoglobin 23 pg (25-35) Mean Corpuscular Hemoglobin Concent 31 g/dL (31-37) Red Cell Distribution Width 23.9 % (11.5-14.5) Platelet Count 119 x10^3/uL (140-400) Neutrophils (%) (Auto) 58 % (31-73) Lymphocytes (%) (Auto) 26 % (24-48) Monocytes (%) (Auto) 15 % (0-9) Eosinophils (%) (Auto) 0 % (0-3) Basophils (%) (Auto) 2 % (0-3) Neutrophils # (Auto) 3.9 x10^3/uL (1.8-7.7) Lymphocytes # (Auto) 1.7 x10^3/uL (1.0-4.8) Monocytes # (Auto) 1.0 x10^3/uL (0.0-1.1) Eosinophils # (Auto) 0.0 x10^3/uL (0.0-0.7) Basophils # (Auto) 0.1 x10^3/uL (0.0-0.2) Platelet Estimate Decreased (ADEQUATE) Anisocytosis Slight Target Cells Occ Prothrombin Time 13.1 SEC (11.7-14.0) Prothromb Time International Ratio 1.0 (0.8-1.1) Activated Partial Thromboplast Time 28 SEC (24-38) Sodium Level 142 mmol/L (136-145) Potassium Level 3.9 mmol/L (3.5-5.1) Chloride Level 102 mmol/L (98-107) Carbon Dioxide Level 19 mmol/L (21-32) Anion Gap 21 (6-14) Blood Urea Nitrogen 13 mg/dL (8-26) Creatinine 1.0 mg/dL (0.7-1.3) Estimated GFR (Cockcroft-Gault) 77.3 BUN/Creatinine Ratio 13 (6-20) Glucose Level 113 mg/dL (70-99) Calcium Level 9.1 mg/dL (8.5-10.1) Magnesium Level 1.9 mg/dL (1.8-2.4) Total Bilirubin 0.7 mg/dL (0.2-1.0) Aspartate Amino Transf (AST/SGOT) 89 U/L (15-37) Alanine Aminotransferase (ALT/SGPT) 83 U/L (16-63) Alkaline Phosphatase 80 U/L (46-116) Total Protein 7.3 g/dL (6.4-8.2) Albumin 3.7 g/dL (3.4-5.0) Albumin/Globulin Ratio 1.0 (1.0-1.7) Lipase 231 U/L (73-393) Ethyl Alcohol Level 160 mg/dL (0-10) [id number]-Type Natriuretic Peptide 16 pg/mL (0-124) Urine Collection Type Unknown Urine Color [place] Urine Clarity Clear Urine pH 6.5 (<5.0-8.0) Urine Specific [place] >=1.030 (1.000-1.030) Urine Protein 30 mg/dL (NEG-TRACE) Urine Glucose (UA) Negative mg/dL (NEG) Urine Ketones (Stick) Trace mg/dL (NEG) Urine Blood Negative (NEG) Urine Nitrite Negative (NEG) Urine Bilirubin Negative (NEG) Urine Urobilinogen Dipstick 1.0 mg/dL (0.2 mg/dL) Urine Leukocyte Esterase Trace (NEG) Urine RBC Occ /HPF (0-2) Urine WBC 1-4 /HPF (0-4) Urine Bacteria 0 /HPF (0-FEW) Urine Hyaline Casts Moderate /HPF Urine Mucus Marked /LPF Urine Opiates Screen Neg (NEG) Urine Methadone Screen Neg (NEG) Urine Barbiturates Neg (NEG) Urine Phencyclidine Screen Neg (NEG) Urine Amphetamine/Methamphetamine Neg (NEG) Urine Benzodiazepines Screen Neg (NEG) Urine Cocaine Screen Neg (NEG) Urine Cannabinoids Screen Neg (NEG) Urine Ethyl Alcohol Pos (NEG) Laboratory Tests Test 03/28/20 09:02 03/28/20 09:05 03/28/20 11:50 White Blood Count 6.8 x10^3/uL (4.0-11.0) Red Blood Count 5.00 x10^6/uL (4.30-5.70) Hemoglobin 11.6 g/dL (13.0-17.5) Hematocrit 37.2 % (39.0-53.0) Mean Corpuscular Volume 74 fL (79-100) Mean Corpuscular Hemoglobin 23 pg (25-35) Mean Corpuscular Hemoglobin Concent 31 g/dL (31-37) Red Cell Distribution Width 23.9 % (11.5-14.5) Platelet Count 119 x10^3/uL (140-400) Neutrophils (%) (Auto) 58 % (31-73) Lymphocytes (%) (Auto) 26 % (24-48) Monocytes (%) (Auto) 15 % (0-9) Eosinophils (%) (Auto) 0 % (0-3) Basophils (%) (Auto) 2 % (0-3) Neutrophils # (Auto) 3.9 x10^3/uL (1.8-7.7) Lymphocytes # (Auto) 1.7 x10^3/uL (1.0-4.8) Monocytes # (Auto) 1.0 x10^3/uL (0.0-1.1) Eosinophils # (Auto) 0.0 x10^3/uL (0.0-0.7) Basophils # (Auto) 0.1 x10^3/uL (0.0-0.2) Platelet Estimate Decreased (ADEQUATE) Anisocytosis Slight Target Cells Occ Prothrombin Time 13.1 SEC (11.7-14.0) Prothromb Time International Ratio 1.0 (0.8-1.1) Activated Partial Thromboplast Time 28 SEC (24-38) Sodium Level 142 mmol/L (136-145) Potassium Level 3.9 mmol/L (3.5-5.1) Chloride Level 102 mmol/L (98-107) Carbon Dioxide Level 19 mmol/L (21-32) Anion Gap 21 (6-14) Blood Urea Nitrogen 13 mg/dL (8-26) Creatinine 1.0 mg/dL (0.7-1.3) Estimated GFR (Cockcroft-Gault) 77.3 BUN/Creatinine Ratio 13 (6-20) Glucose Level 113 mg/dL (70-99) Calcium Level 9.1 mg/dL (8.5-10.1) Magnesium Level 1.9 mg/dL (1.8-2.4) Total Bilirubin 0.7 mg/dL (0.2-1.0) Aspartate Amino Transf (AST/SGOT) 89 U/L (15-37) Alanine Aminotransferase (ALT/SGPT) 83 U/L (16-63) Alkaline Phosphatase 80 U/L (46-116) Total Protein 7.3 g/dL (6.4-8.2) Albumin 3.7 g/dL (3.4-5.0) Albumin/Globulin Ratio 1.0 (1.0-1.7) Lipase 231 U/L (73-393) Ethyl Alcohol Level 160 mg/dL (0-10) QY-[id number]-I-Type Natriuretic Peptide 16 pg/mL (0-124) Urine Collection Type Unknown Urine Color [place] Urine Clarity Clear Urine pH 6.5 (<5.0-8.0) Urine Specific [place] >=1.030 (1.000-1.030) Urine Protein 30 mg/dL (NEG-TRACE) Urine Glucose (UA) Negative mg/dL (NEG) Urine Ketones (Stick) Trace mg/dL (NEG) Urine Blood Negative (NEG) Urine Nitrite Negative (NEG) Urine Bilirubin Negative (NEG) Urine Urobilinogen Dipstick 1.0 mg/dL (0.2 mg/dL) Urine Leukocyte Esterase Trace (NEG) Urine RBC Occ /HPF (0-2) Urine WBC 1-4 /HPF (0-4) Urine Bacteria 0 /HPF (0-FEW) Urine Hyaline Casts Moderate /HPF Urine Mucus Marked /LPF Urine Opiates Screen Neg (NEG) Urine Methadone Screen Neg (NEG) Urine Barbiturates Neg (NEG) Urine Phencyclidine Screen Neg (NEG) Urine Amphetamine/Methamphetamine Neg (NEG) Urine Benzodiazepines Screen Neg (NEG) Urine Cocaine Screen Neg (NEG) Urine Cannabinoids Screen Neg (NEG) Urine Ethyl Alcohol Pos (NEG) Images Images IMAGING REPORT Signed PATIENT: PASQUALE ORELLANA ACCOUNT: [id number] : 1965 LOCATION: ER AGE: 54 SEX: M EXAM STATUS: REG ER ORD. PHYSICIAN: BIJAN SMALL DO REASON: soa, hypoxia PROCEDURE: CT ANGIOGRAPHY CHEST PQRS Compliance Statement: One or more of the following individualized dose reduction techniques were utilized for this examination: 1. Automated exposure control 2. Adjustment of the mA and/or kV according to patient size 3. Use of iterative reconstruction technique CTA CHEST 03/28/2020 12:28 PM INDICATION: Shortness of air, hypoxia COMPARISON: None available TECHNIQUE: Axial CT images of the chest were obtained after the intravenous administration of nonionic contrast. Coronal and sagittal reformats are provided. Maximum intensity projection images of the thoracic vasculature are provided. FINDINGS: The thyroid gland is normal in appearance. There are no pathologically enlarged axillary, mediastinal or hilar lymph nodes. Mild cardiomegaly. No significant pericardial effusion. There is ectasia of the ascending thoracic aorta measuring up to 4.4 cm. There is a linear filling defect along the ascending aorta which may be secondary to respiratory motion, although a dissection flap may have similar appearance. There is suboptimal opacification of the pulmonary arterial system with limited evaluation of the segmental and subsegmental pulmonary arteries. There there are no filling defects within the pulmonary arterial system to suggest acute or chronic pulmonary embolus. There are no suspicious solid noncalcified pulmonary nodules. Bandlike consolidative change in the medial right lung base may represent subsegmental atelectasis versus developing infiltrate. Mild pulmonary vascular congestion. No significant pleural effusions or pneumothorax. There are severe hepatic steatosis. Kidneys are normal. There is a gastrohepatic lymph node which is nonenlarged measuring 8 mm. IMPRESSION: There is no evidence for acute or chronic pulmonary embolism, although there is suboptimal opacification of the segmental and subsegmental pulmonary arteries. Ectasia of the ascending thoracic aorta measuring 4.4 cm. There is a linear filling defect along the ascending arch extending to the aortic root which could represent respiratory motion versus a dissection flap. Without history of chest pain or hypertension, findings favor motion. Further characterization with cardiac gated CTA versus MRA thorax could be of benefit. Mild cardiomegaly. Mild pulmonary vascular congestion. Constellation of findings could represent congestive heart failure. Bandlike density at the medial right lung base may represent subsegmental atelectasis versus developing infiltrate. Severe hepatic steatosis. FOR INTERNAL CODING PURPOSES Critical result: Findings discussed with Dr. Small at 03/28/2020 1:22 PM. RESULT CODE: (C) Electronically signed by: Carlos Elizabeth MD (03/28/2020 1:22 PM) [facility] DICTATED and SIGNED BY: CARLOS ELIZABETH MD DATE: 03/28/20 [id number] [address] [place] [address] IMAGING REPORT Signed PATIENT: PASQUALE ORELLANA ACCOUNT: [id number] : 1965 LOCATION: ER AGE: 54 SEX: M EXAM STATUS: REG ER ORD. PHYSICIAN: BIJAN SMALL DO REASON: lower back pain, fell 3 days ago PROCEDURE: LUMBAR SPINE 2-3V XR LUMBAR SPINE 2-3V Clinical Indication: Reason: lower back pain, fell 3 days ago Comparison: CT abdomen and pelvis with contrast March 01, 2019. Findings: There is old compression fracture and vertical fracture of the L2 vertebral body. Sacroiliac joints appear symmetric. The vertebral body alignment is maintained. There is degenerative endplate spurring. There is mild disc space narrowing of L5/S1. Other disc spaces are maintained. No other loss of vertebral body height. IMPRESSION: 1. Redemonstrated compression and vertical fractures of the L2 vertebral body. No retropulsion. 2. Vertebral body heights otherwise maintained. VTE Prophylaxis Ordered VTE Prophylaxis Devices: No VTE Pharmacological Prophylaxi: Yes Assessment/Plan Assessment/Plan Delirium tremens Alcohol abuse Alcohol withdrawal seizure Dilated cardiomyopathy Plan: Admit patient with alcohol withdrawal treatment protocol Consultation has been placed to case management for alcohol treatment program Consultation to PAT team Dilated cardiomyopathy seen on CTA chest. Consult cardiology for further recommendations on medical management. Pain medications and nausea medications as needed FEN - Cardiac diet PPX - SCDs FULL CODE Dispo - inpatient for above Justifications for Admission Other Justification Alcohol withdrawal, seizure JINA LARRY MD Mar 28, 2020 15:08
[2020-03-28] MEDS: MULTIVITAMIN with MINERAL TABLET. PO SCH (16:00)
[2020-03-28] MEDS: THIAMINE INJ 100 MG, FOLIC ACID INJ 1 MG in IV NORMAL SALINE 1000ML BAG 1,000 ML IV SCH (16:25)
[2020-03-28 19:00] VITALS: BP 157/91
[2020-03-28] MEDS: NITROGLYCERIN OINT 1 GM PACKET. TP SCH (19:31)
[2020-03-28 23:00] VITALS: BP 157/98
[2020-03-29] VITALS (7 sets, daily range): BP systolic 135–163; BP diastolic 91–101
[2020-03-29] MEDS: NITROGLYCERIN OINT 1 GM PACKET. TP SCH ×4 (00:15→17:32)
[2020-03-29] MEDS ORDERED: PERFLUTREN PROTEIN-A MICROSPHR 0.22 MG/ML 3 ML VIAL. IV ONE ×2 (06:50→07:00)
[2020-03-29] MEDS: GABAPENTIN 300 MG CAPSULE. PO SCH ×3 (08:22→20:03)
[2020-03-29] MEDS: MULTIVITAMIN with MINERAL TABLET. PO SCH (08:22)
[2020-03-29] MEDS: THIAMINE INJ 100 MG, FOLIC ACID INJ 1 MG in IV NORMAL SALINE 1000ML BAG 1,000 ML IV SCH (08:22)
[2020-03-29 08:40] LABS: CALCIUM 8.8 mg/dL (8.5-10.1); CREATININE 0.9 mg/dL (0.7-1.3); GFR 87.3; POTASSIUM 3.5 mmol/L (3.5-5.1)
--- NOTE | 2020-03-29 08:59 | NUR ---
Request for PT orders: Screen was completed and possible indication for PT evaluation identified. Hx fall and L2 compression fx in patient with alcohol withdrawal. Please order PT evaluation and treatment if you agree. Thanks Bao Gutierrez PT
--- NOTE | 2020-03-29 09:05 | PDOC2 ---
SHAGGY RASMUSSEN EXTERNAL RELATIONS DIRECTOR 03/29/20 0905: CARDIAC CONSULT DATE OF CONSULT Date of Consult DATE: 03/29/20 TIME: 08:33 REASON FOR CONSULT Reason for Consult: Dilated cardiomyopathy REFERRING PHYSICIAN Referring Physician: Shira SOURCE Source: Chart review, Patient HISTORY OF PRESENT ILLNESS HISTORY OF PRESENT ILLNESS Mr Lozada is a 53 yo male admitted for increasing anxiety. He is known for ETOH abuse with multiple admission last yr due to ETOH withdrawal. He was known to drink about 1 L of vodka a day in the past. He has had failed detox. Denies any chest pain, SOA, cough and no fever or chills. No n/v/d. He did fall Thanksgiving last yr and his imaging shows that L2 compression. Consult is for cardiomyopathy. CTA revealed possible CHF but clinically he does not have CHF and pro-NT-BNP clearly rules out CHF. He does have significant hepatic steatosis due to ETOH abuse. I discussed with him and he had at least 3 failed detox last yr. His last ETOH drink was 3 days ago and decided to just stop and realized that he is drinking too much. He is not depressed or suicidal. He lives with his . He came in and was sweaty, anxious but no hallucinations, delusions or tremors. Lately he has been drinking about a 5th of a liter of vodka and 6 beers a day. He said he drinks ETOH because he likes it. No hx of bleeding, VTE, CAD and no hx of hepatitis. No prior exposure to covid-19 and no symptoms as well. PAST MEDICAL HISTORY Cardiovascular: HTN Pulmonary: No pertinent hx CENTRAL NERVOUS SYSTEM: Seizure GI: Other (gastric benign tumor) Heme/Onc: Anemia NOS Hepatobiliary: Other (hepatic steatosis) Psych: Addictions (alcoholism) Musculoskeletal: Osteoarthritis Rheumatologic: No pertinent hx Infectious disease: No pertinent hx ENT: No pertinent hx Renal/: No pertinent hx Endocrine: No pertinent hx Dermatology: No pertinent hx PAST SURGICAL HISTORY Past Surgical History: Other (liver biopsy and partial gastric resection) FAMILY HISTORY Family History: Coronary Artery Disease (father in his 50s) SOCIAL HISTORY Smoke: No ALCOHOL: heavy Drugs: None Lives: with Family CURRENT MEDICATIONS CURRENT MEDICATIONS Current Medications Medications (Trade) Dose Ordered Sig/Jacqueline Route PRN Reason Start Time Stop Time Status Last Admin Dose Admin Lorazepam (Ativan Inj) 2 mg 1X ONCE IVP 03/28/20 09:15 2/4/21 09:16 DC 03/28/20 09:28 Sodium Chloride 1,000 ml @ 1,000 mls/hr 1X ONCE IV 03/28/20 09:15 03/28/20 10:14 DC 03/28/20 09:27 Thiamine HCl 100 mg/Dextrose 51 ml @ 102 mls/hr 1X STAT IV 03/28/20 09:04 03/28/20 09:33 DC 03/28/20 09:28 Ondansetron HCl (Zofran) 4 mg 1X ONCE IVP 03/28/20 09:15 03/28/20 09:16 DC 03/28/20 09:28 Lorazepam (Ativan Inj) 2 mg 1X ONCE IVP 03/28/20 10:45 03/28/20 10:46 DC 03/28/20 11:20 Chlordiazepoxide (Librium) 50 mg 1X ONCE PO 03/28/20 11:45 03/28/20 11:46 DC 03/28/20 13:37 Iohexol (Omnipaque 350 Mg/ml) 100 ml 1X ONCE IV 03/28/20 12:30 03/28/20 12:31 DC 03/28/20 12:54 Metoclopramide HCl (Reglan Vial) 10 mg 1X ONCE IVP 03/28/20 14:45 03/28/20 14:52 DC 03/28/20 15:15 Thiamine HCl 100 mg/Folic Acid 1 mg/Sodium Chloride 1,001.2 ml @ 99.012 mls/hr DAILY IV 03/28/20 16:00 04/01/20 19:07 03/29/20 08:22 Multivitamins (Thera M Plus) 1 tab DAILY PO 03/28/20 16:00 03/29/20 08:22 Lorazepam (Ativan Inj) 2 mg PRN Q1HR PRN IV For CIWA 8-14 03/28/20 15:00 03/28/20 22:12 Gabapentin (Neurontin) 300 mg TID PO 03/28/20 15:00 03/29/20 08:22 Nitroglycerin (Nitro-Bid Oint) 1.5 inch Q6HRS TP 03/28/20 18:00 03/29/20 06:18 Perflutren Protein Type A Microsphe (Optison) 0.66 mg 1X ONCE IV 03/29/20 07:00 03/29/20 07:01 DC 03/29/20 07:25 ALLERGIES ALLERGIES: Coded Allergies: No Known Drug Allergies (Unverified , 03/20/19) ROS Review of System 14 point ROS evaluated with pertinent positives noted per HPI PHYSICAL EXAM General: Alert, Oriented X3, Cooperative, No acute distress HEENT: Atraumatic, Mucous membr. moist/pink Lungs: Clear to auscultation, Normal air movement Heart: Regular rate (SR), Normal S1, Normal S2, No murmurs Abdomen: Soft, No tenderness Extremities: No cyanosis, No edema Skin: No breakdown, No significant lesion Neuro: Normal speech, Sensation intact Psych/Mental Status: Mental status NL, Mood NL MUSCULOSKELETAL: Osteoarthritic changes both hands VITALS/I&O VITALS/I&O: Vital Signs Date Time Temp Pulse Resp B/P (MAP) Pulse Ox O2 Delivery O2 Flow Rate FiO2 03/29/20 06:18 118 138/93 03/29/20 03:00 99.3 18 90 99.3 03/29/20 00:12 Nasal Cannula 2.0 I & O 03/28/20 03/28/20 03/29/20 15:00 23:00 07:00 Intake Total 51 ml 240 ml Output Total 800 ml Balance 51 ml 240 ml -800 ml LABS Lab: Laboratory Tests Test 03/28/20 09:02 03/28/20 09:05 03/28/20 11:50 White Blood Count 6.8 x10^3/uL (4.0-11.0) Red Blood Count 5.00 x10^6/uL (4.30-5.70) Hemoglobin 11.6 g/dL (13.0-17.5) L Hematocrit 37.2 % (39.0-53.0) L Mean Corpuscular Volume 74 fL (79-100) L Mean Corpuscular Hemoglobin 23 pg (25-35) L Mean Corpuscular Hemoglobin Concent 31 g/dL (31-37) Red Cell Distribution Width 23.9 % (11.5-14.5) H Platelet Count 119 x10^3/uL (140-400) L Neutrophils (%) (Auto) 58 % (31-73) Lymphocytes (%) (Auto) 26 % (24-48) Monocytes (%) (Auto) 15 % (0-9) H Eosinophils (%) (Auto) 0 % (0-3) Basophils (%) (Auto) 2 % (0-3) Neutrophils # (Auto) 3.9 x10^3/uL (1.8-7.7) Lymphocytes # (Auto) 1.7 x10^3/uL (1.0-4.8) Monocytes # (Auto) 1.0 x10^3/uL (0.0-1.1) Eosinophils # (Auto) 0.0 x10^3/uL (0.0-0.7) Basophils # (Auto) 0.1 x10^3/uL (0.0-0.2) Platelet Estimate Decreased (ADEQUATE) Anisocytosis Slight Target Cells Occ Prothrombin Time 13.1 SEC (11.7-14.0) Prothrombin Time INR 1.0 (0.8-1.1) Activated Partial Thromboplast Time 28 SEC (24-38) Sodium Level 142 mmol/L (136-145) Potassium Level 3.9 mmol/L (3.5-5.1) Chloride Level 102 mmol/L (98-107) Carbon Dioxide Level 19 mmol/L (21-32) L Anion Gap 21 (6-14) H Blood Urea Nitrogen 13 mg/dL (8-26) Creatinine 1.0 mg/dL (0.7-1.3) Estimated GFR (Cockcroft-Gault) 77.3 BUN/Creatinine Ratio 13 (6-20) Glucose Level 113 mg/dL (70-99) H Calcium Level 9.1 mg/dL (8.5-10.1) Magnesium Level 1.9 mg/dL (1.8-2.4) Total Bilirubin 0.7 mg/dL (0.2-1.0) Aspartate Amino Transferase (AST) 89 U/L (15-37) H Alanine Aminotransferase (ALT) 83 U/L (16-63) H Alkaline Phosphatase 80 U/L (46-116) Total Protein 7.3 g/dL (6.4-8.2) Albumin 3.7 g/dL (3.4-5.0) Albumin/Globulin Ratio 1.0 (1.0-1.7) Lipase 231 U/L (73-393) Ethyl Alcohol Level 160 mg/dL (0-10) H JI-Osp-W-Type Natriuretic Peptide 16 pg/mL (0-124) Urine Collection Type Unknown Urine Color V[place]ney Urine Clarity Clear Urine pH 6.5 (<5.0-8.0) Urine Specific Pierce >=1.030 (1.000-1.030) Urine Protein 30 mg/dL (NEG-TRACE) Urine Glucose (UA) Negative mg/dL (NEG) Urine Ketones (Stick) Trace mg/dL (NEG) Urine Blood Negative (NEG) Urine Nitrite Negative (NEG) Urine Bilirubin Negative (NEG) Urine Urobilinogen Dipstick 1.0 mg/dL (0.2 mg/dL) Urine Leukocyte Esterase Trace (NEG) Urine RBC Occ /HPF (0-2) Urine WBC 1-4 /HPF (0-4) Urine Bacteria 0 /HPF (0-FEW) Urine Hyaline Casts Moderate /HPF Urine Mucus Marked /LPF Urine Opiates Screen Neg (NEG) Urine Methadone Screen Neg (NEG) Urine Barbiturates Neg (NEG) Urine Phencyclidine Screen Neg (NEG) Urine Amphetamine/Methamphetamine Neg (NEG) Urine Benzodiazepines Screen Neg (NEG) Urine Cocaine Screen Neg (NEG) Urine Cannabinoids Screen Neg (NEG) Urine Ethyl Alcohol Pos (NEG) Laboratory Tests 03/28/20 09:02 Laboratory Tests 03/28/20 09:02 ASSESSMENT/PLAN ASSESSMENT/PLAN 1. Heavy alcoholism with withdrawal 2. HTN: labile 3. Reactive sinus tachycardia 4. Hepatic steatosis 5. Hx of partial gastric resection due to benign tumor 6. Anion gap metabolic acidosis: due to ETOH 7. Transaminitis with thrombocytopenia 8. Prolonged QTc 504 Recommendations 1. Preliminary TTE shows no cardiomyopathy. EF and LV WM is normal. Clinically he does not have CHF with pro NT BNP of 16. Will obtain baseline EKG 2. Continue CIWA protocol. Pt explained that he is ready for another round of outpt detox. Continue libirum and BP remains labile then may use clonidine. 3. Will need outpt referral to pattern storage clerk/GI 4. Caution with QT prolonging agents. such as zofran, compazine and haldol. Will defer to PCP WESTON MILLIGAN MD 03/30/20 0721: CARDIAC CONSULT ASSESSMENT/PLAN ASSESSMENT/PLAN Pt. seen and examined. Agree with above PHARMACY TECHNOLOGY INSTRUCTOR note. Late entry for 03/29/20 Supportive care. Thanks SHAGGY RASMUSSEN APRN Mar 29, 2020 09:05 WESTON MILLIGAN MD Mar 30, 2020 07:21
--- NOTE | 2020-03-29 09:09 | EKG ---
[facility] [address] [place] [address] Test Date: 2020-03-29 Test Time: 09:07:01 Pat Name: PASQUALE ORELLANA Department: Room: 538 1 Gender: M Music Assistant: EDISON : [id number] Requested By: SHAGGY RASMUSSEN Order Number: [id number] Reading MD: Jalen Moise Measurements Intervals [place] Rate: 108 P: -29 ND: 136 QRS: -29 QRSD: 92 T: -6 QT: 380 QTc: 514 Interpretive Statements SINUS TACHYCARDIA LEFTWARD AXIS Electronically Signed On 04-01-2020 10:15:53 SHERIFF OFFICER by Jalen Moise
--- NOTE | 2020-03-29 09:54 | NUR ---
SW following. Discussed with RN, pt from home, room air, regular diet. MCKENZIE consulted for ETOH use/abuse. RN advised no other SW needs at this time. JOSESITO will continue to follow. Addendum: 03/29/20 at 1141 by SAIRA MEADOWS SW Gee ZIMMERMAN) met with pt, pt drinks a pint a day. Pt just left [place] about a month ago, and has been to [facility] before. Pt is unsure about what he wants to do. No SI/HI/ MH hx. JOSESITO will continue to follow.
--- NOTE | 2020-03-29 10:36 | CARD ---
MR#: [id number] Date of Study: 03/29/2020 Ordering Physician: JINA LARRY, Referring Physician: JINA LARRY, Tech: Kate Morales TATIANNA APPROVED REPORT EXAM: Two-dimensional and M-mode echocardiogram with Doppler and color Doppler. Other Information Quality : Technically LimitedHR: 124bpm Rhythm : NSR INDICATION Cardiomyopathy Echo Enhancing Agent Indication: Endocardial border delineation Agent/Amount Used: Optison 2mL 2D DIMENSIONS Left Atrium(2D)3.6 (1.6-4.0cm)IVSd1.2 (0.7-1.1cm) Aortic Root(2D)3.9 (2.0-3.7cm)LVDd4.7 (3.9-5.9cm) LVOT Diameter2.3 (1.8-2.4cm)PWd1.2 (0.7-1.1cm) LVDs3.3 (2.5-4.0cm)FS (%) 30.8 % SV60.7 mlLVEF(%)58.3 (>50%) Aortic Valve AoV Peak Cristiano.97.2cm/Chad Peak GR.3.8mmHg LVOT Peak Cristiano.92.1cm/sAVA (VMAX)4.05cm2 LEFT VENTRICLE The left ventricle is normal size. There is mild concentric left ventricular hypertrophy. The left ve ntricular systolic function is normal and the ejection fraction is within normal range. Estimated eje ction fraction 55-60%. There is normal LV segmental wall motion. Tissue Doppler imaging reveals moder ate left ventricular diastolic dysfunction. RIGHT VENTRICLE The right ventricle cavity is small. There is normal right ventricular wall thickness. The right vent ricular systolic function is normal. ATRIA The left atrium size is normal. The right atrium size is normal. The interatrial septum is intact wit h no evidence for an atrial septal defect or patent foramen ovale as noted on 2-D or Doppler imaging. AORTIC VALVE The aortic valve is normal in structure and function. Doppler and Color Flow revealed no significant aortic regurgitation. There is no significant aortic valvular stenosis. MITRAL VALVE The mitral valve is normal in structure and function. There is no evidence of mitral valve prolapse. There is no mitral valve stenosis. Doppler and Color Flow revealed no mitral valve regurgitation note d. TRICUSPID VALVE The tricuspid valve is normal in structure and function. Doppler and Color Flow revealed no tricuspid valve regurgitation noted. The velocity is increased but there is no tricuspid valve stenosis. PULMONIC VALVE The pulmonary valve is normal in structure and function. Doppler and Color Flow revealed no pulmonic valvular regurgitation. There is no pulmonic valvular stenosis. GREAT VESSELS The aortic root is normal in size. The ascending aorta is normal in size. The IVC is normal in size a nd collapses >50% with inspiration. PERICARDIAL EFFUSION There is no evidence of significant pericardial effusion. Critical Notification Critical Value: No <Conclusion> The left ventricular systolic function is normal and the ejection fraction is within normal range. E stimated ejection fraction 55-60%. Septal motion suggestive of conduction defect, otherwise, there is normal LV segmental wall motion. Technically difficult study due to body habitus and patient compliance in acute withdrawl. Grossly no acute findings. Signed by : Owen Negron, Electronically Approved : 03/29/2020 10:36:34
[2020-03-29] MEDS: METHOCARBAMOL 750 MG TABLET PO PRN (11:14)
[2020-03-29] MEDS: HYDROcodone/APAP 5/325MG 1 TAB TABLET PO PRN (20:03)
[2020-03-30 03:00] VITALS: BP 158/103
[2020-03-30] MEDS: NITROGLYCERIN OINT 1 GM PACKET. TP SCH ×3 (04:47→12:00)
[2020-03-30] MEDS: HYDROcodone/APAP 5/325MG 1 TAB TABLET PO PRN ×2 (04:51→10:24)
[2020-03-30 07:00] VITALS: BP 137/95
[2020-03-30] MEDS: MULTIVITAMIN with MINERAL TABLET. PO SCH (08:00)
[2020-03-30] MEDS: GABAPENTIN 300 MG CAPSULE. PO SCH (08:00)
[2020-03-30] MEDS: METHOCARBAMOL 750 MG TABLET PO PRN (08:00)
--- NOTE | 2020-03-30 08:54 | PDOC ---
PROGRESS NOTES Date of Service: DATE: 03/29/20 TIME: 08:52 Chief Complaint Chief Complaint Delirium tremens Alcohol abuse Alcohol withdrawal seizure Dilated cardiomyopathy Plan: Admit patient with alcohol withdrawal treatment protocol Consultation has been placed to case management for alcohol treatment program Consultation to PAT team Dilated cardiomyopathy seen on CTA chest. Consult cardiology for further recommendations on medical management. Pain medications and nausea medications as needed FEN - Cardiac diet PPX - SCDs FULL CODE Dispo - inpatient for above History of Present Illness History of Present Illness History of Present Illness Patient is a 54-year-old male past medical history of alcohol abuse, who presents to the ER after reportedly having an alcohol withdrawal seizure this morning. Seizure was reportedly witnessed by his on his couch this morning, and she brings him to the ER for treatment of withdrawal symptoms. He is admitted multiple times for alcohol withdrawal and seizures. States he drinks around 1 pint of vodka daily his last drink was yesterday. After discussion with patient in the ER wanting treatment for his alcoholism is wi lling to go through a treatment program if available. He admits to alcohol relapse fall about 4 days ago with residual back pain. X-ray obtained in the ER showed redemonstrated compression and vertical fractures of the L2 vertebral body without retropulsion. CTA chest was obtained due to tachycardia. CTA was negative for PE but did note ectasia of the ascending thoracic aorta measuring 4.4 cm and a linear filling defect along the ascending arch extending to the aortic root which could represent respiratory motion versus a dissection flap. Without history of chest pain or hypertension, findings favor motion. Mild cardiomegaly and mild pulmonary vascular congestion noted. Patient denies chest pain or shortness of breath. Will admit patient for further medical management. 03/29: No acute events reported overnight, case discussed with nursing staff patient in no acute distress no complaints during my visit Vitals Vitals Vital Signs Date Time Temp Pulse Resp B/P (MAP) Pulse Ox O2 Delivery O2 Flow Rate FiO2 03/30/20 07:00 98.1 116 20 137/95 (109) 94 Room Air 98.1 Physical Exam General: Alert, Oriented X3, Cooperative, No acute distress Heart: Regular rate (SR), Normal S1, Normal S2, No murmurs Lungs: Clear Abdomen: Soft, No tenderness Extremities: No cyanosis, No edema Skin: No breakdown, No significant lesion Review of Systems Review of Systems Review of systems pertinent as per HPI otherwise 14 point review of system is negative Assessment and Plan Assessmemt and Plan Problems Medical Problems: (1) Alcohol abuse Status: Acute (2) Hypoxia Status: Acute Comment Review of Relevant I have reviewed the following items lana (where applicable) has been applied. Labs Laboratory Tests Test 03/28/20 09:02 03/28/20 09:05 03/28/20 11:50 03/29/20 08:01 White Blood Count 6.8 x10^3/uL (4.0-11.0) Red Blood Count 5.00 x10^6/uL (4.30-5.70) Hemoglobin 11.6 g/dL (13.0-17.5) Hematocrit 37.2 % (39.0-53.0) Mean Corpuscular Volume 74 fL (79-100) Mean Corpuscular Hemoglobin 23 pg (25-35) Mean Corpuscular Hemoglobin Concent 31 g/dL (31-37) Red Cell Distribution Width 23.9 % (11.5-14.5) Platelet Count 119 x10^3/uL (140-400) Neutrophils (%) (Auto) 58 % (31-73) Lymphocytes (%) (Auto) 26 % (24-48) Monocytes (%) (Auto) 15 % (0-9) Eosinophils (%) (Auto) 0 % (0-3) Basophils (%) (Auto) 2 % (0-3) Neutrophils # (Auto) 3.9 x10^3/uL (1.8-7.7) Lymphocytes # (Auto) 1.7 x10^3/uL (1.0-4.8) Monocytes # (Auto) 1.0 x10^3/uL (0.0-1.1) Eosinophils # (Auto) 0.0 x10^3/uL (0.0-0.7) Basophils # (Auto) 0.1 x10^3/uL (0.0-0.2) Platelet Estimate Decreased (ADEQUATE) Anisocytosis Slight Target Cells Occ Prothrombin Time 13.1 SEC (11.7-14.0) Prothromb Time International Ratio 1.0 (0.8-1.1) Activated Partial Thromboplast Time 28 SEC (24-38) Sodium Level 142 mmol/L (136-145) 136 mmol/L (136-145) Potassium Level 3.9 mmol/L (3.5-5.1) 3.5 mmol/L (3.5-5.1) Chloride Level 102 mmol/L (98-107) 101 mmol/L (98-107) Carbon Dioxide Level 19 mmol/L (21-32) 24 mmol/L (21-32) Anion Gap 21 (6-14) 11 (6-14) Blood Urea Nitrogen 13 mg/dL (8-26) 9 mg/dL (8-26) Creatinine 1.0 mg/dL (0.7-1.3) 0.9 mg/dL (0.7-1.3) Estimated GFR (Cockcroft-Gault) 77.3 87.3 BUN/Creatinine Ratio 13 (6-20) Glucose Level 113 mg/dL (70-99) 124 mg/dL (70-99) Calcium Level 9.1 mg/dL (8.5-10.1) 8.8 mg/dL (8.5-10.1) Magnesium Level 1.9 mg/dL (1.8-2.4) Total Bilirubin 0.7 mg/dL (0.2-1.0) Aspartate Amino Transf (AST/SGOT) 89 U/L (15-37) Alanine Aminotransferase (ALT/SGPT) 83 U/L (16-63) Alkaline Phosphatase 80 U/L (46-116) Total Protein 7.3 g/dL (6.4-8.2) Albumin 3.7 g/dL (3.4-5.0) Albumin/Globulin Ratio 1.0 (1.0-1.7) Lipase 231 U/L (73-393) Ethyl Alcohol Level 160 mg/dL (0-10) RK-Bur-N-Type Natriuretic Peptide 16 pg/mL (0-124) Urine Collection Type Unknown Urine Color [place] Urine Clarity Clear Urine pH 6.5 (<5.0-8.0) Urine Specific [place] >=1.030 (1.000-1.030) Urine Protein 30 mg/dL (NEG-TRACE) Urine Glucose (UA) Negative mg/dL (NEG) Urine Ketones (Stick) Trace mg/dL (NEG) Urine Blood Negative (NEG) Urine Nitrite Negative (NEG) Urine Bilirubin Negative (NEG) Urine Urobilinogen Dipstick 1.0 mg/dL (0.2 mg/dL) Urine Leukocyte Esterase Trace (NEG) Urine RBC Occ /HPF (0-2) Urine WBC 1-4 /HPF (0-4) Urine Bacteria 0 /HPF (0-FEW) Urine Hyaline Casts Moderate /HPF Urine Mucus Marked /LPF Urine Opiates Screen Neg (NEG) Urine Methadone Screen Neg (NEG) Urine Barbiturates Neg (NEG) Urine Phencyclidine Screen Neg (NEG) Urine Amphetamine/Methamphetamine Neg (NEG) Urine Benzodiazepines Screen Neg (NEG) Urine Cocaine Screen Neg (NEG) Urine Cannabinoids Screen Neg (NEG) Urine Ethyl Alcohol Pos (NEG) Creatine Kinase 102 U/L (39-308) Microbiology 03/28/20 Urine Culture - Final, Complete Medications Current Medications Lorazepam (Ativan Inj) 2 mg 1X ONCE IVP Last administered on 03/28/20 09:28; Start 03/28/20 at 09:15; Stop 03/28/20 at 09:16; Status DC Sodium Chloride 1,000 ml @ 1,000 mls/hr 1X ONCE IV Last administered on 03/28/20at 09:27; Start 03/28/20 at 09:15; Stop 03/28/20 at 10:14; Status DC Thiamine HCl 100 mg/Dextrose 51 ml @ 102 mls/hr 1X STAT IV Last administered on 03/28/20at 09:28; Start 03/28/20 at 09:04; Stop 03/28/20 at 09:33; Status DC Ondansetron HCl (Zofran) 4 mg 1X ONCE IVP Last administered on 03/28/20at 09:28; Start 03/28/20 at 09:15; Stop 03/28/20 at 09:16; Status DC Lorazepam (Ativan Inj) 2 mg 1X ONCE IVP Last administered on 03/28/20at 11:20; Start 03/28/20 at 10:45; Stop 03/28/20 at 10:46; Status DC Chlordiazepoxide (Librium) 50 mg 1X ONCE PO Last administered on 03/28/20at 13:37; Start 03/28/20 at 11:45; Stop 03/28/20 at 11:46; Status DC Iohexol (Omnipaque 350 Mg/ml) 100 ml 1X ONCE IV Last administered on 03/28/20at 12:54; Start 03/28/20 at 12:30; Stop 03/28/20 at 12:31; Status DC Info (CONTRAST GIVEN -- Rx MONITORING) 1 each PRN DAILY PRN MC SEE COMMENTS; Start 03/28/20 at 12:30; Stop 03/30/20 at 12:29 Ondansetron HCl (Zofran) 4 mg PRN Q8HRS PRN IV NAUSEA/VOMITING; Start 03/28/20 at 14:00; Stop 03/29/20 at 13:59; Status DC Metoclopramide HCl (Reglan Vial) 10 mg 1X ONCE IVP Last administered on 03/28/20at 15:15; Start 03/28/20 at 14:45; Stop 03/28/20 at 14:52; Status DC Thiamine HCl 100 mg/Folic Acid 1 mg/Sodium Chloride 1,001.2 ml @ 99.012 mls/hr DAILY IV Last administered on 03/29/20at 08:22; Start 03/28/20 at 16:00; Stop 03/30/20 at 07:49; Status DC Multivitamins (Thera M Plus) 1 tab DAILY PO Last administered on 03/30/20at 08:00; Start 03/28/20 at 16:00 Folic Acid (Folic Acid) 1 mg DAILY PO Last administered on 03/30/20at 08:00; Start 03/30/20 at 09:00 Thiamine Mononitrate (Vitamin B-1) 100 mg DAILY PO Last administered on 03/30/20at 08:00; Start 03/30/20 at 09:00 Chlordiazepoxide (Librium) 50 mg PRN Q1HR PRN PO For CIWA 8-14; Start 03/28/20 at 15:00 Chlordiazepoxide (Librium) 100 mg PRN Q1HR PRN PO For CIWA 15 or greater; Start 03/28/20 at 15:00 Lorazepam (Ativan) 4 mg PRN Q1HR PRN PO For CIWA 8-14; Start 03/28/20 at 15:00 Lorazepam (Ativan) 8 mg PRN Q1HR PRN PO For CIWA 15 or greater; Start 03/28/20 at 15:00 Lorazepam (Ativan Inj) 2 mg PRN Q1HR PRN IV For CIWA 8-14 Last administered on 03/28/20at 22:12; Start 03/28/20 at 15:00 Lorazepam (Ativan Inj) 4 mg PRN Q1HR PRN IV For CIWA 15 or greater; Start 03/28/20 at 15:00 Haloperidol Lactate (Haldol Inj) 5 mg PRN Q4HRS PRN IVP Hallucinatns,Confusn,Delirium; Start 03/28/20 at 15:00 Diphenhydramine HCl (Benadryl) 25 mg PRN Q15MIN PRN IVP EPS symptoms 2'Haldol admin; Start 03/28/20 at 15:00 Clonidine HCl (Catapres) 0.1 mg PRN Q1HR PRN PO SBP > 180 or DBP > 100, MRX3; Start 03/28/20 at 15:00 Lorazepam (Ativan Inj) 2 mg PRN Q15MIN PRN IV SEE COMMENTS; Start 03/28/20 at 15:00 Lorazepam (Ativan Inj) 4 mg PRN Q15MIN PRN IV SEE COMMENTS; Start 03/28/20 at 15:00 Lorazepam 40 mg/ Sodium Chloride 270 ml @ 13.5 mls/hr CONT PRN IV PER PROTOCOL; Start 03/28/20 at 15:00 Gabapentin (Neurontin) 300 mg TID PO Last administered on 03/30/20at 08:00; Start 03/28/20 at 15:00 Ondansetron HCl (Zofran) 4 mg PRN Q6HRS PRN IVP NAUSEA/VOMITING; Start 03/28/20 at 15:00 Prochlorperazine Edisylate (Compazine) 10 mg PRN Q6HRS PRN IVP NAUSEA/VOMITING- 2ND CHOICE; Start 03/28/20 at 15:00 Al Hydroxide/Mg Hydroxide (Mylanta Plus Xs) 30 ml PRN Q3HRS PRN PO HEARTBURN / GAS; Start 03/28/20 at 15:00 Calcium Carbonate/ Glycine (Tums) 500 mg PRN Q3HRS PRN PO UPSET STOMACH; Start 03/28/20 at 15:00 Acetaminophen/ Hydrocodone Bitart (Lortab 5/325) 1 tab PRN Q4HRS PRN PO MILD PAIN 1-3 (1st Choice) Last administered on 03/30/20at 04:51; Start 03/28/20 at 15:00 Acetaminophen/ Hydrocodone Bitart (Lortab 5/325) 2 tab PRN Q4HRS PRN PO MODERATE PAIN, SEVERE PAIN; Start 03/28/20 at 15:00 Acetaminophen (Tylenol) 650 mg PRN Q6HRS PRN PO Headaches, Temp > 101.5F; Start 03/28/20 at 15:00 Ibuprofen (Motrin) 400 mg PRN Q6HRS PRN PO MILD PAIN 1-3 (2nd Choice); Start 03/28/20 at 15:00 Magnesium Hydroxide (Milk Of Magnesia) 2,400 mg PRN Q12HR PRN PO CONSTIPATION; Start 03/28/20 at 15:00 Bisacodyl (Dulcolax Supp) 10 mg PRN DAILY PRN [place] CONSTIPATION; Start 03/28/20 at 15:00 Nitroglycerin (Nitro-Bid Oint) 1.5 inch Q6HRS TP Last administered on 03/30/20at 04:47; Start 03/28/20 at 18:00 Perflutren Protein Type A Microsphe (Optison) 0.66 mg STK-MED ONCE IV ; Start 03/29/20 at 06:50; Stop 03/29/20 at 06:50; Status DC Perflutren Protein Type A Microsphe (Optison) 0.66 mg 1X ONCE IV Last administered on 03/29/20at 07:25; Start 03/29/20 at 07:00; Stop 03/29/20 at 07:01; Status DC Methocarbamol (Robaxin) 1,500 mg PRN Q8HRS PRN PO MUSCLE SPASMS Last administered on 03/30/20at 08:00; Start 03/29/20 at 10:30 Active Scripts Active Ativan (Lorazepam) 2 Mg Tablet 2 Mg PO TID PRN 3 Days Gabapentin (Gabapentin) 300 Mg Capsule 300 Mg PO TID 90 Days Catapres (Clonidine Hcl) 0.1 Mg Tablet 0.1 Mg PO Q8HRS 14 Days Reported No Known Medications Prior To Admisstion (Info) Each 1 Each MC 1X Vitals/I & O Vital Sign - Last 24 Hours 03/29/20 03/29/20 03/29/20 03/29/20 11:00 11:14 15:00 17:32 Temp 99.3 98.9 99.3 98.9 Pulse 105 94 102 102 Resp 16 16 B/P (MAP) 138/94 (109) 136/94 139/97 (111) 139/97 Pulse Ox 91 93 O2 Delivery Room Air Room Air 03/29/20 03/29/20 03/29/20 03/29/20 19:00 20:00 20:03 21:03 Temp 99.5 99.5 Pulse 102 Resp 20 20 20 B/P (MAP) 135/93 (107) Pulse Ox 92 O2 Delivery Room Air Room Air Room Air Room Air 03/29/20 03/30/20 03/30/20 03/30/20 23:00 03:00 04:47 04:51 Temp 99.6 98.8 99.6 98.8 Pulse 95 100 100 Resp 20 18 20 B/P (MAP) 157/98 (117) 158/103 (121) 158/103 Pulse Ox 93 94 O2 Delivery Room Air Room Air Room Air 03/30/20 03/30/20 05:51 07:00 Temp 98.1 98.1 Pulse 116 Resp 18 20 B/P (MAP) 137/95 (109) Pulse Ox 94 O2 Delivery Room Air Room Air Intake and Output 03/29/20 03/29/20 03/30/20 15:00 23:00 07:00 Intake Total 120 ml 300 ml Output Total 360 ml 725 ml 600 ml Balance -240 ml -425 ml -600 ml Justicifation of Admission Dx: Justifications for Admission: Justification of Admission Dx: N/A LATANYA LÓPEZ MD Mar 30, 2020 08:54
--- NOTE | 2020-03-30 08:56 | PDOC ---
PROGRESS NOTES Date of Service: DATE: 03/30/20 TIME: 08:54 Chief Complaint Chief Complaint Delirium tremens Alcohol abuse Alcohol withdrawal seizure Dilated cardiomyopathy Prolongued QTc Plan: Careful with QT prolonging drugs like Zofran Compazine Haldol Consultation has been placed to case management for alcohol treatment program Consultation to PAT team Dilated cardiomyopathy seen on CTA chest. Consult cardiology for further recommendations on medical management. Pain medications and nausea medications as needed FEN - Cardiac diet PPX - SCDs FULL CODE Dispo - inpatient for above History of Present Illness History of Present Illness History of Present Illness Patient is a 54-year-old male past medical history of alcohol abuse, who presents to the ER after reportedly having an alcohol withdrawal seizure this morning. Seizure was reportedly witnessed by his on his couch this morning, and she brings him to the ER for treatment of withdrawal symptoms. He is admitted multiple times for alcohol withdrawal and seizures. States he d rinks around 1 pint of vodka daily his last drink was yesterday. After discussion with patient in the ER wanting treatment for his alcoholism is willing to go through a treatment program if available. He admits to alcohol relapse fall about 4 days ago with residual back pain. X-ray obtained in the ER showed redemonstrated compression and vertical fractures of the L2 vertebral narcisa dy without retropulsion. CTA chest was obtained due to tachycardia. CTA was negative for PE but did note ectasia of the ascending thoracic aorta measuring 4.4 cm and a linear filling defect along the ascending arch extending to the aortic root which could represent respiratory motion versus a dissection flap. Without history of chest pain or hypertension, findings favor motion. Mild cardiomegaly and mild pulmonary vascular congestion noted. Patient denies chest pain or shortness of breath. Will admit patient for further medical management. 2: No acute events reported overnight, case discussed with nursing staff patient in no acute distress no complaints during my visit 03/30: Patient with no complaints during my visit. Uneventful night, no signs of withdrawal. Hopefully we can discharge the patient will follow up with case management Vitals Vitals Vital Signs Date Time Temp Pulse Resp B/P (MAP) Pulse Ox O2 Delivery O2 Flow Rate FiO2 03/30/20 07:00 98.1 116 20 137/95 (109) 94 Room Air 98.1 Physical Exam General: Alert, Oriented X3, Cooperative, No acute distress Heart: Regular rate (SR), Normal S1, Normal S2, No murmurs Lungs: Clear Abdomen: Soft, No tenderness Extremities: No cyanosis, No edema Skin: No breakdown, No significant lesion Assessment and Plan Assessmemt and Plan Problems Medical Problems: (1) Alcohol abuse Status: Acute (2) Hypoxia Status: Acute Comment Review of Relevant I have reviewed the following items lana (where applicable) has been applied. Labs Laboratory Tests Test 03/28/20 09:02 03/28/20 09:05 03/28/20 11:50 03/29/20 08:01 White Blood Count 6.8 x10^3/uL (4.0-11.0) Red Blood Count 5.00 x10^6/uL (4.30-5.70) Hemoglobin 11.6 g/dL (13.0-17.5) Hematocrit 37.2 % (39.0-53.0) Mean Corpuscular Volume 74 fL (79-100) Mean Corpuscular Hemoglobin 23 pg (25-35) Mean Corpuscular Hemoglobin Concent 31 g/dL (31-37) Red Cell Distribution Width 23.9 % (11.5-14.5) Platelet Count 119 x10^3/uL (140-400) Neutrophils (%) (Auto) 58 % (31-73) Lymphocytes (%) (Auto) 26 % (24-48) Monocytes (%) (Auto) 15 % (0-9) Eosinophils (%) (Auto) 0 % (0-3) Basophils (%) (Auto) 2 % (0-3) Neutrophils # (Auto) 3.9 x10^3/uL (1.8-7.7) Lymphocytes # (Auto) 1.7 x10^3/uL (1.0-4.8) Monocytes # (Auto) 1.0 x10^3/uL (0.0-1.1) Eosinophils # (Auto) 0.0 x10^3/uL (0.0-0.7) Basophils # (Auto) 0.1 x10^3/uL (0.0-0.2) Platelet Estimate Decreased (ADEQUATE) Anisocytosis Slight Target Cells Occ Prothrombin Time 13.1 SEC (11.7-14.0) Prothromb Time International Ratio 1.0 (0.8-1.1) Activated Partial Thromboplast Time 28 SEC (24-38) Sodium Level 142 mmol/L (136-145) 136 mmol/L (136-145) Potassium Level 3.9 mmol/L (3.5-5.1) 3.5 mmol/L (3.5-5.1) Chloride Level 102 mmol/L (98-107) 101 mmol/L (98-107) Carbon Dioxide Level 19 mmol/L (21-32) 24 mmol/L (21-32) Anion Gap 21 (6-14) 11 (6-14) Blood Urea Nitrogen 13 mg/dL (8-26) 9 mg/dL (8-26) Creatinine 1.0 mg/dL (0.7-1.3) 0.9 mg/dL (0.7-1.3) Estimated GFR (Cockcroft-Gault) 77.3 87.3 BUN/Creatinine Ratio 13 (6-20) Glucose Level 113 mg/dL (70-99) 124 mg/dL (70-99) Calcium Level 9.1 mg/dL (8.5-10.1) 8.8 mg/dL (8.5-10.1) Magnesium Level 1.9 mg/dL (1.8-2.4) Total Bilirubin 0.7 mg/dL (0.2-1.0) Aspartate Amino Transf (AST/SGOT) 89 U/L (15-37) Alanine Aminotransferase (ALT/SGPT) 83 U/L (16-63) Alkaline Phosphatase 80 U/L (46-116) Total Protein 7.3 g/dL (6.4-8.2) Albumin 3.7 g/dL (3.4-5.0) Albumin/Globulin Ratio 1.0 (1.0-1.7) Lipase 231 U/L (73-393) Ethyl Alcohol Level 160 mg/dL (0-10) CV-Iws-P-Type Natriuretic Peptide 16 pg/mL (0-124) Urine Collection Type Unknown Urine Color [place] Urine Clarity Clear Urine pH 6.5 (<5.0-8.0) Urine Specific [place] >=1.030 (1.000-1.030) Urine Protein 30 mg/dL (NEG-TRACE) Urine Glucose (UA) Negative mg/dL (NEG) Urine Ketones (Stick) Trace mg/dL (NEG) Urine Blood Negative (NEG) Urine Nitrite Negative (NEG) Urine Bilirubin Negative (NEG) Urine Urobilinogen Dipstick 1.0 mg/dL (0.2 mg/dL) Urine Leukocyte Esterase Trace (NEG) Urine RBC Occ /HPF (0-2) Urine WBC 1-4 /HPF (0-4) Urine Bacteria 0 /HPF (0-FEW) Urine Hyaline Casts Moderate /HPF Urine Mucus Marked /LPF Urine Opiates Screen Neg (NEG) Urine Methadone Screen Neg (NEG) Urine Barbiturates Neg (NEG) Urine Phencyclidine Screen Neg (NEG) Urine Amphetamine/Methamphetamine Neg (NEG) Urine Benzodiazepines Screen Neg (NEG) Urine Cocaine Screen Neg (NEG) Urine Cannabinoids Screen Neg (NEG) Urine Ethyl Alcohol Pos (NEG) Creatine Kinase 102 U/L (39-308) Microbiology 03/28/20 Urine Culture - Final, Complete Medications Current Medications Lorazepam (Ativan Inj) 2 mg 1X ONCE IVP Last administered on 03/28/20at 09:28; Start 03/28/20 at 09:15; Stop 03/28/20 at 09:16; Status DC Sodium Chloride 1,000 ml @ 1,000 mls/hr 1X ONCE IV Last administered on 03/28/20at 09:27; Start 03/28/20 at 09:15; Stop 03/28/20 at 10:14; Status DC Thiamine HCl 100 mg/Dextrose 51 ml @ 102 mls/hr 1X STAT IV Last administered on 03/28/20at 09:28; Start 03/28/20 at 09:04; Stop 03/28/20 at 09:33; Status DC Ondansetron HCl (Zofran) 4 mg 1X ONCE IVP Last administered on 03/28/20at 09:28; Start 03/28/20 at 09:15; Stop 03/28/20 at 09:16; Status DC Lorazepam (Ativan Inj) 2 mg 1X ONCE IVP Last administered on 03/28/20at 11:20; Start 03/28/20 at 10:45; Stop 03/28/20 at 10:46; Status DC Chlordiazepoxide (Librium) 50 mg 1X ONCE PO Last administered on 03/28/20at 13:37; Start 03/28/20 at 11:45; Stop 03/28/20 at 11:46; Status DC Iohexol (Omnipaque 350 Mg/ml) 100 ml 1X ONCE IV Last administered on 03/28/20at 12:54; Start 03/28/20 at 12:30; Stop 03/28/20 at 12:31; Status DC Info (CONTRAST GIVEN -- Rx MONITORING) 1 each PRN DAILY PRN MC SEE COMMENTS; Start 03/28/20 at 12:30; Stop 03/30/20 at 12:29 Ondansetron HCl (Zofran) 4 mg PRN Q8HRS PRN IV NAUSEA/VOMITING; Start 03/28/20 at 14:00; Stop 03/29/20 at 13:59; Status DC Metoclopramide HCl (Reglan Vial) 10 mg 1X ONCE IVP Last administered on 03/28/20at 15:15; Start 03/28/20 at 14:45; Stop 03/28/20 at 14:52; Status DC Thiamine HCl 100 mg/Folic Acid 1 mg/Sodium Chloride 1,001.2 ml @ 99.012 mls/hr DAILY IV Last administered on 03/29/20at 08:22; Start 03/28/20 at 16:00; Stop 03/30/20 at 07:49; Status DC Multivitamins (Thera M Plus) 1 tab DAILY PO Last administered on 03/30/20at 08:00; Start 03/28/20 at 16:00 Folic Acid (Folic Acid) 1 mg DAILY PO Last administered on 03/30/20at 08:00; Start 03/30/20 at 09:00 Thiamine Mononitrate (Vitamin B-1) 100 mg DAILY PO Last administered on 03/30/20at 08:00; Start 03/30/20 at 09:00 Chlordiazepoxide (Librium) 50 mg PRN Q1HR PRN PO For CIWA 8-14; Start 03/28/20 at 15:00 Chlordiazepoxide (Librium) 100 mg PRN Q1HR PRN PO For CIWA 15 or greater; Start 03/28/20 at 15:00 Lorazepam (Ativan) 4 mg PRN Q1HR PRN PO For CIWA 8-14; Start 03/28/20 at 15:00 Lorazepam (Ativan) 8 mg PRN Q1HR PRN PO For CIWA 15 or greater; Start 03/28/20 at 15:00 Lorazepam (Ativan Inj) 2 mg PRN Q1HR PRN IV For CIWA 8-14 Last administered on 03/28/20at 22:12; Start 03/28/20 at 15:00 Lorazepam (Ativan Inj) 4 mg PRN Q1HR PRN IV For CIWA 15 or greater; Start 03/28/20 at 15:00 Haloperidol Lactate (Haldol Inj) 5 mg PRN Q4HRS PRN IVP Hallucinatns,Confusn,Delirium; Start 03/28/20 at 15:00 Diphenhydramine HCl (Benadryl) 25 mg PRN Q15MIN PRN IVP EPS symptoms 2'Haldol admin; Start 03/28/20 at 15:00 Clonidine HCl (Catapres) 0.1 mg PRN Q1HR PRN PO SBP > 180 or DBP > 100, MRX3; Start 03/28/20 at 15:00 Lorazepam (Ativan Inj) 2 mg PRN Q15MIN PRN IV SEE COMMENTS; Start 03/28/20 at 15:00 Lorazepam (Ativan Inj) 4 mg PRN Q15MIN PRN IV SEE COMMENTS; Start 03/28/20 at 15:00 Lorazepam 40 mg/ Sodium Chloride 270 ml @ 13.5 mls/hr CONT PRN IV PER PROTOCOL; Start 03/28/20 at 15:00 Gabapentin (Neurontin) 300 mg TID PO Last administered on 03/30/20at 08:00; Start 03/28/20 at 15:00 Ondansetron HCl (Zofran) 4 mg PRN Q6HRS PRN IVP NAUSEA/VOMITING; Start 03/28/20 at 15:00 Prochlorperazine Edisylate (Compazine) 10 mg PRN Q6HRS PRN IVP NAUSEA/VOMITING- 2ND CHOICE; Start 03/28/20 at 15:00 Al Hydroxide/Mg Hydroxide (Mylanta Plus Xs) 30 ml PRN Q3HRS PRN PO HEARTBURN / GAS; Start 03/28/20 at 15:00 Calcium Carbonate/ Glycine (Tums) 500 mg PRN Q3HRS PRN PO UPSET STOMACH; Start 03/28/20 at 15:00 Acetaminophen/ Hydrocodone Bitart (Lortab 5/325) 1 tab PRN Q4HRS PRN PO MILD PAIN 1-3 (1st Choice) Last administered on 03/30/20at 04:51; Start 03/28/20 at 15:00 Acetaminophen/ Hydrocodone Bitart (Lortab 5/325) 2 tab PRN Q4HRS PRN PO MODERATE PAIN, SEVERE PAIN; Start 03/28/20 at 15:00 Acetaminophen (Tylenol) 650 mg PRN Q6HRS PRN PO Headaches, Temp > 101.5F; Start 03/28/20 at 15:00 Ibuprofen (Motrin) 400 mg PRN Q6HRS PRN PO MILD PAIN 1-3 (2nd Choice); Start 03/28/20 at 15:00 Magnesium Hydroxide (Milk Of Magnesia) 2,400 mg PRN Q12HR PRN PO CONSTIPATION; Start 03/28/20 at 15:00 Bisacodyl (Dulcolax Supp) 10 mg PRN DAILY PRN MS CONSTIPATION; Start 03/28/20 at 15:00 Nitroglycerin (Nitro-Bid Oint) 1.5 inch Q6HRS TP Last administered on 03/30/20at 04:47; Start 03/28/20 at 18:00 Perflutren Protein Type A Microsphe (Optison) 0.66 mg STK-MED ONCE IV ; Start 03/29/20 at 06:50; Stop 03/29/20 at 06:50; Status DC Perflutren Protein Type A Microsphe (Optison) 0.66 mg 1X ONCE IV Last administered on 03/29/20at 07:25; Start 03/29/20 at 07:00; Stop 03/29/20 at 07:01; Status DC Methocarbamol (Robaxin) 1,500 mg PRN Q8HRS PRN PO MUSCLE SPASMS Last administered on 03/30/20at 08:00; Start 03/29/20 at 10:30 Active Scripts Active Ativan (Lorazepam) 2 Mg Tablet 2 Mg PO TID PRN 3 Days Gabapentin (Gabapentin) 300 Mg Capsule 300 Mg PO TID 90 Days Catapres (Clonidine Hcl) 0.1 Mg Tablet 0.1 Mg PO Q8HRS 14 Days Reported No Known Medications Prior To Admisstion (Info) Each 1 Each MC 1X Vitals/I & O Vital Sign - Last 24 Hours 03/29/20 03/29/20 03/29/20 03/29/20 11:00 11:14 15:00 17:32 Temp 99.3 98.9 99.3 98.9 Pulse 105 94 102 102 Resp 16 16 B/P (MAP) 138/94 (109) 136/94 139/97 (111) 139/97 Pulse Ox 91 93 O2 Delivery Room Air Room Air 03/29/20 03/29/20 03/29/20 03/29/20 19:00 20:00 20:03 21:03 Temp 99.5 99.5 Pulse 102 Resp 20 20 20 B/P (MAP) 135/93 (107) Pulse Ox 92 O2 Delivery Room Air Room Air Room Air Room Air 03/29/20 03/30/20 03/30/20 03/30/20 23:00 03:00 04:47 04:51 Temp 99.6 98.8 99.6 98.8 Pulse 95 100 100 Resp 20 18 20 B/P (MAP) 157/98 (117) 158/103 (121) 158/103 Pulse Ox 93 94 O2 Delivery Room Air Room Air Room Air 03/30/20 03/30/20 05:51 07:00 Temp 98.1 98.1 Pulse 116 Resp 18 20 B/P (MAP) 137/95 (109) Pulse Ox 94 O2 Delivery Room Air Room Air Intake and Output 03/29/20 03/29/20 03/30/20 15:00 23:00 07:00 Intake Total 120 ml 300 ml Output Total 360 ml 725 ml 600 ml Balance -240 ml -425 ml -600 ml Justicifation of Admission Dx: Justifications for Admission: Justification of Admission Dx: N/A LATANYA LÓPEZ MD Mar 30, 2020 08:56
[2020-03-30] MEDS ORDERED: THIAMINE 100 MG TABLET. PO SCH (09:00)
[2020-03-30] MEDS ORDERED: PROMETHAZINE 12.5 MG TABLET. PO PRN (09:00)
[2020-03-30] MEDS ORDERED: FOLIC ACID 1 MG TABLET. PO SCH (09:00)
[2020-03-30] MEDS ORDERED: METH-562 PO (09:54)
[2020-03-30] MEDS ORDERED: THIA100T22 PO (09:54)
[2020-03-30] MEDS ORDERED: Folic Acid PO (09:54)
--- NOTE | 2020-03-30 09:57 | PDOC3 ---
Discharge Summary Visit Information Date of Admission: Mar 28, 2020 Date of Discharge: Mar 30, 2020 Admitting Diagnosis Comment: Delirium tremens Alcohol abuse Alcohol withdrawal seizure Dilated cardiomyopathy Final Diagnosis Problems Medical Problems: (1) Alcohol abuse Status: Acute (2) Hypoxia Status: Acute Delirium tremens Alcohol abuse Alcohol withdrawal seizure Dilated cardiomyopathy Brief Hospital Course Allergies Allergies Coded Allergies Type Severity Reaction Last Updated Verified No Known Drug Allergies 03/20/19 No Vital Signs Vital Signs Date Time Temp Pulse Resp B/P (MAP) Pulse Ox O2 Delivery O2 Flow Rate FiO2 03/30/20 08:00 Room Air 03/30/20 07:00 98.1 116 20 137/95 (109) 94 98.1 Lab Results Laboratory Tests Test 03/28/20 11:50 03/29/20 08:01 Urine Collection Type Unknown Urine Color [place]ianney Urine Clarity Clear Urine pH 6.5 (<5.0-8.0) Urine Specific [place] >=1.030 (1.000-1.030) Urine Protein 30 mg/dL (NEG-TRACE) Urine Glucose (UA) Negative mg/dL (NEG) Urine Ketones (Stick) Trace mg/dL (NEG) Urine Blood Negative (NEG) Urine Nitrite Negative (NEG) Urine Bilirubin Negative (NEG) Urine Urobilinogen Dipstick 1.0 mg/dL (0.2 mg/dL) Urine Leukocyte Esterase Trace (NEG) Urine RBC Occ /HPF (0-2) Urine WBC 1-4 /HPF (0-4) Urine Bacteria 0 /HPF (0-FEW) Urine Hyaline Casts Moderate /HPF Urine Mucus Marked /LPF Urine Opiates Screen Neg (NEG) Urine Methadone Screen Neg (NEG) Urine Barbiturates Neg (NEG) Urine Phencyclidine Screen Neg (NEG) Urine Amphetamine/Methamphetamine Neg (NEG) Urine Benzodiazepines Screen Neg (NEG) Urine Cocaine Screen Neg (NEG) Urine Cannabinoids Screen Neg (NEG) Urine Ethyl Alcohol Pos (NEG) Sodium Level 136 mmol/L (136-145) Potassium Level 3.5 mmol/L (3.5-5.1) Chloride Level 101 mmol/L (98-107) Carbon Dioxide Level 24 mmol/L (21-32) Anion Gap 11 (6-14) Blood Urea Nitrogen 9 mg/dL (8-26) Creatinine 0.9 mg/dL (0.7-1.3) Estimated GFR (Cockcroft-Gault) 87.3 Glucose Level 124 mg/dL (70-99) Calcium Level 8.8 mg/dL (8.5-10.1) Creatine Kinase 102 U/L (39-308) Brief Hospital Course History of Present Illness Patient is a 54-year-old male past medical history of alcohol abuse, who presents to the ER after reportedly having an alcohol withdrawal seizure this morning. Seizure was reportedly witnessed by his on his couch this morning, and she brings him to the ER for treatment of withdrawal symptoms. He is admitted multiple times for alcohol withdrawal and seizures. States he drinks around 1 pint of vodka daily his last drink was yesterday. After discussion with patient in the ER wanting treatment for his alcoholism is willing to go through a treatment program if available. He admits to alcohol relapse fall about 4 days ago with residual back pain. X-ray obtained in the ER showed redemonstrated compression and vertical fractures of the L2 vertebral body without retropulsion. CTA chest was obtained due to tachycardia. CTA was negative for PE but did note ectasia of the ascending thoracic aorta measuring 4.4 cm and a linear filling defect along the ascending arch extending to the aortic root which could represent respiratory motion versus a dissection flap. Without history of chest pain or hypertension, findings favor motion. Mild cardiomegaly and mild pulmonary vascular congestion noted. Patient denies chest pain or shortness of breath. Will admit patient for further medical management. 2/5: No acute events reported overnight, case discussed with nursing staff patient in no acute distress no complaints during my visit 2/6: Patient with no complaints during my visit. Uneventful night, no signs of withdrawal. Hopefully we can discharge the patient will follow up with case management PET team confirmed that the patient has finished a rehab program recently 21 days. They have given him information and he does not seem to be in acute distress nor medically unstable. He is medically optimized and able to go home he is requesting discharge at this time. Reassurance provided all concerns addressed to the best of my abilities please see below for prescriptions Discharge Information Condition at Discharge: Improved Follow Up: Weeks Disposition/Orders: D/C to Home Scheduled Clonidine Hcl (Catapres) 0.1 Mg Tablet, 0.1 MG PO Q8HRS for Alcohol withdrawal for 14 Days, #42 Prescribed by: DYAN SANDOVAL MD on 12/23/19 1220 Last Action: HELD on 03/28/201499 by JINA LARRY MD Gabapentin (Gabapentin ) 300 Mg Capsule, 300 MG PO TID for NEUROGENIC PAIN/Alcohol withdr for 90 Days, #270 Prescribed by: DYAN SANDOVAL MD on 12/23/19 122 Last Action: Continued on 03/28/201499 by JINA LARRY MD Info (No Known Medications Prior To Admisstion) Each, 1 EACH 1X for none, (Reported) Entered as Reported by: RENALDO COUGHLIN on 06/06/19 0104 Last Action: HELD on 03/28/201499 by JINA LARRY MD Thiamine Mononitrate (Vitamin B-1) 100 Mg Tablet, 100 MG PO DAILY for supplement for 30 Days, #30 Ref 2 Prescribed by: LATANYA LÓPEZ MD on 03/30/20 0954 [Folic Acid] 1 MG TABLET, 1 MG PO DAILY for supplement for 30 Days, #30 Prescribed by: LATANYA LÓPEZ MD on 03/30/20 0954 Scheduled PRN Lorazepam (Ativan) 2 Mg Tablet, 2 MG PO TID PRN for ALCOHOL WITHDRAWAL for 3 Days, #9 Prescribed by: DYAN SANDOVAL MD on 12/23/19 122 Last Action: HELD on 03/28/201499 by JINA LARRY MD Methocarbamol (Methocarbamol) 750 Mg Tablet, 1,500 MG PO PRN Q8HRS PRN for MUSCLE SPASMS for 10 Days, #30 Prescribed by: LATANYA LÓPEZ MD on 03/30/20 0954 Justicifation of Admission Dx: Justifications for Admission: Justification of Admission Dx: N/A LATANYA LÓPEZ MD Mar 30, 2020 09:56
[2020-03-30 11:00] VITALS: BP 115/83
--- NOTE | 2020-03-30 14:06 | NUR ---
Discharge Note: PT DISCHARGED HOME WITH SELF CARE. PT LEFT FACILITY VIA PRIVATE VEHICLE WITH SPOUSE AT 1400. PT STABLE AND ALERT UPON DISCHARGE. PT PIV REMOVED FROM L HAND WITHOUT COMPLICATIONS, BANDAGE APPLIED. PT PROVIDED COMMUNITY RESOURCES FROM [facility] TEAM REGARDING REHAB FACILITIES AND OUTPT THERAPY. PT EDUCATED ABOUT DISCHARGE INSTRUCTIONS, DISCHARGE MEDICATIONS, AND FOLLOW-UP CARE. PT VOICED NO CONCERNS AT THIS TIME. PT LEFT WITH ALL PERSONAL BELONGINGS. PASQULAE ORELLANA Discharge instructions and discharge home medications reviewed with Patient and a copy given. All questions have been answered and understanding verbalized.
== END 2020-03-30 14:00 | disposition home or self-care (01) | DRG 101 ==
LOC: ER 08:45 → ED HOLD 13:40 → 5 NORTH 16:30
PROVIDERS: ADMIT Family Medicine; ATTEND Family Medicine
DX: R56.9 Unspecified convulsions (principal); F10.231 Alcohol dependence with withdrawal delirium; S32.029A Unspecified fracture of second lumbar vertebra, initial encounter for closed fracture; E87.2 Acidosis; I42.0 Dilated cardiomyopathy; K74.60 Unspecified cirrhosis of liver; D69.6 Thrombocytopenia, unspecified; F41.9 Anxiety disorder, unspecified; I10 Essential (primary) hypertension; I77.810 Thoracic aortic ectasia; K76.0 Fatty (change of) liver, not elsewhere classified; R09.02 Hypoxemia; W19.XXXA Unspecified fall, initial encounter; Z82.49 Family history of ischemic heart disease and other diseases of the circulatory system; M19.90 Unspecified osteoarthritis, unspecified site
CPT/HCPCS: 96365; 96375; 99285; C8929; 36415; 71045; 71275; 72100; 80048; 80053; 80307; 81001; 82550; 83690; 83735; 83880; 85025; 85610; 85730; 87086; 93005; G0480; J2060; J2405; J2765; J3411; J3490; J7030; J7060; Q9956; Q9967; G0378

== ENCOUNTER 2020-05-24 22:56 | Emergency (ER) | payer BC ==
[~2020-05-24] VITALS: Ht 177.8 cm; Wt 95.4 kg
[~2020-05-24 22:56] MED LIST changes: +Folic Acid PO; +METH-562 PO; +THIA100T22 PO
[2020-05-24 23:26] LABS: BASO # 0.1 x10^3/uL (0.0-0.2); BASO % 1 % (0-3); EOS % 1 % (0-3); HEMATOCRIT 38.6 % (39.0-53.0); HEMOGLOBIN 12.1 g/dL (13.0-17.5); LYMPH # 1.8 x10^3/uL (1.0-4.8); LYMPH % 44 % (24-48); MEAN CORPUSCULAR HEMOGLOBIN 24 pg (25-35); MEAN CORPUSCULAR HGB CONC 31 g/dL (31-37); MEAN CORPUSCULAR VOLUME 78 fL (79-100); MONO # 0.5 x10^3/uL (0.0-1.1); MONO % 11 % (0-9); NEUT # 1.8 x10^3/uL (1.8-7.7); NEUT % 43 % (31-73); PLATELET COUNT 136 x10^3/uL (140-400); RED BLOOD COUNT 4.96 x10^6/uL (4.30-5.70); RED CELL DISTRIBUTION WIDTH 23.4 % (11.5-14.5); WHITE BLOOD COUNT 4.1 x10^3/uL (4.0-11.0)
[2020-05-24 23:37] LABS: CALCIUM 8.6 mg/dL (8.5-10.1); CREATININE 0.8 mg/dL (0.7-1.3); GFR 99.6; POTASSIUM 4.3 mmol/L (3.5-5.1)
[2020-05-24 23:43] LABS: ALBUMIN 3.5 g/dL (3.4-5.0); ALBUMIN/GLOBULIN RATIO 0.9 (1.0-1.7); TOTAL BILIRUBIN 0.4 mg/dL (0.2-1.0); TOTAL PROTEIN 7.4 g/dL (6.4-8.2)
[2020-05-24] MEDS ORDERED: IOHEXOL 300 MG/ML 100ML VIAL. IV ONE (23:45)
[2020-05-24] MEDS ORDERED: CONTRAST GIVEN. MC PRN (23:45)
[2020-05-24 23:46] LABS: ANISOCYTOSIS SLIGHT; HYPOCHROMIA SLIGHT; MICROCYTOSIS SLIGHT; PLT ESTIMATE ADEQUATE (ADEQUATE)
--- NOTE | 2020-05-25 00:27 | RAD ---
PQRS Compliance Statement: One or more of the following individualized dose reduction techniques were utilized for this examinat ion: 1. Automated exposure control 2. Adjustment of the mA and/or kV according to patient size 3. Use of iterative reconstruction technique CT HEAD, MAXILLOFACIAL, AND CERVICAL SPINE WITHOUT CONTRAST History: Reason: head injury, fall. Left eye swollen. Comparison: None. Procedure: Axial images are obtained of the head from the skull base through the vertex without IV co ntrast. Noncontrast helical CT of the cervical spine was performed. Axial, sagittal, and coronal rec onstructions were obtained. Helical CT imaging of the facial bones is performed without IV contrast. Findings: The ventricles and sulci are prominent, consistent with age-related cerebral atrophy. There is mild periventricular white matter hypoattenuation. This is a nonspecific finding but is commonly due to c hronic small vessel ischemic disease in a patient of this age. No mass-effect, midline shift, hemorrhage or obvious acute infarction is identified. Basilar cistern s are patent. Bone windows demonstrate no significant calvarial abnormality. There is degenerative change of the bi lateral TMJ. Correlate to whether there was prior injury. No acute facial bone fracture. There is severe left frontal scalp hematoma. There is severe hematoma of the preseptal left orbit. The globes and post septal orbits are intact. The orbital floors are int act. The visualized paranasal sinuses are clear. Mastoid air cells are well aerated. There is no evidence of acute fracture or acute malalignment of the cervical spine. There are no perched or jumped facet joints. The vertebral body height and alignment are maintained. There is mild disc space narrowing of C6/C7 and C7/T1. No high-grade narrowing of the central canal i s appreciated. Visualized soft tissues of the neck demonstrate no significant abnormalities. The visualized lung api nehal are clear. IMPRESSION: 1. No acute intracranial abnormality. 2. There is severe hematoma of the preseptal left orbit and left frontal scalp. The globes are intac t. 3. No acute fracture of the cervical spine. 4. No acute facial bone fracture. Electronically signed by: Lester Trimble MD (05/25/2020 12:24 AM) [facility]
--- NOTE | 2020-05-25 00:42 | RAD ---
PQRS Compliance Statement: One or more of the following individualized dose reduction techniques were utilized for this examinat ion: 1. Automated exposure control 2. Adjustment of the mA and/or kV according to patient size 3. Use of iterative reconstruction technique CT CHEST+ABD+PELVIS W Clinical Indication: Reason: fall, head injury. Comparison: CT PE March 28, 2020. Technique: Helical CT imaging of the chest, abdomen and pelvis is performed after 75 cc of Omnipaque 300 IV contrast. Oral contrast not administered. Findings: There is no acute traumatic aortic injury. There is no mediastinal hematoma. There is stable ectasia of the ascending thoracic aorta, diameter is 4.3 cm. There is no dissection. Cardiac size is normal, no pericardial effusion. There is no pneumothorax. The central airways are patent. There is mild atelectasis in the posterior right lower lobe. No pulmonary contusion is seen. There is severe fatty infiltration of the liver. There is a hyperenhancing lesion in segment 2 measur ing 2 cm, stable in size from prior study but more enhancing. No acute traumatic solid organ injuries identified in the upper abdomen. There is no acute injury of bowel. The appendix is normal. There is distal colon diverticulosis. No intraperitoneal free air or free fluid. Urinary bladder is intact. There is old compression fracture of the L2 vertebral body. There is a vertically oriented fracture l ine that is unchanged. There is old compression fracture of the T5 vertebral body. There is degenerat steve endplate spurring of the thoracic spine. There are old left posterior 11th and 12th rib fractures . IMPRESSION: 1. No acute traumatic injury in the chest, abdomen, or pelvis. 2. Stable ectasia of the ascending thoracic aorta. 3. Severe fatty infiltration of the liver. 4. There is a small hyperenhancing lesion in segment 2 of the liver that may be a flash filling neeraj ngioma. Suggest attention on follow-up. 5. Distal colon diverticulosis. Electronically signed by: Lester Trimble MD (05/25/2020 12:39 AM) [facility]
--- NOTE | 2020-05-25 00:45 | PHYS DOC ---
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 Patient is a heavy drinker. He does not remember when he fell. 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 She turned on light and noticed left periorbital facial swelling. Patient Td up to date. Patient ambulated into the ER. Patient admits to daily drinking. On exam left eye-- significant swelling left upper eye lid. Swelling of upper lid prevents patient from opening his eyelids. Was not able to assess occular movement or pupillary accommodation. Assisting patient in opening eyelids patient states he is able to see out of his left eye. Review of Systems: Review of Systems: Constitutional: Denies fever or chills. [] Eyes: periorbical swelling left HENT: Denies nasal congestion or sore throat. [] Respiratory: Denies cough or shortness of breath. [] Cardiovascular: Denies chest pain or edema. [] GI: Denies abdominal pain, nausea, vomiting, bloody stools or diarrhea. [] : Denies dysuria. [] Musculoskeletal: Denies back pain or joint pain. [] Integument: Denies rash. [] Neurologic: Denies headache, focal weakness or sensory changes. [] Endocrine: Denies polyuria or polydipsia. [] Lymphatic: Denies swollen glands. [] Psychiatric: Denies depression or anxiety. [] Heart Score: C/O Chest Pain: N/A Risk Factors: Risk Factors: DM, Current or recent (<one month) smoker, HTN, HLP, family history of CAD, obesity. Risk Scores: Score 0 - 3: 2.5% MACE over next 6 weeks - Discharge Home Score 4 - 6: 20.3% MACE over next 6 weeks - Admit for Clinical Observation Score 7 - 10: 72.7% MACE over next 6 weeks - Early Invasive Strategies Current Medications: Current Medications Medications (Trade) Dose Ordered Sig/Jacqueline Start Time Stop Time Status Last Admin Dose Admin Info (CONTRAST GIVEN -- Rx MONITORING) 1 each PRN DAILY PRN 05/24/20 23:45 05/26/20 23:44 Iohexol (Omnipaque 300 Mg/ml) 75 ml 1X ONCE 05/24/20 23:45 05/24/20 23:46 DC 05/25/20 00:10 75 ML Allergies: Allergies: Allergies Coded Allergies Type Severity Reaction Last Updated Verified No Known Drug Allergies 03/20/19 No Physical Exam: PE: Constitutional: Well developed, well nourished, no acute distress, non-toxic a ppearance. [] HENT: Normocephalic, atraumatic, bilateral external ears normal, oropharynx moist, no oral exudates, nose normal. [] Eyes: swelling left upper eyelid, patient unable to open left lid without assist Neck: Normal range of motion, no tenderness, supple, no stridor. [] Cardiovascular:Heart rate regular rhythm, no murmur [] Lungs & Thorax: Bilateral breath sounds clear to auscultation [] Abdomen: Bowel sounds normal, soft, no tenderness, no masses, no pulsatile masses. [] Skin: Warm, dry, no erythema, no rash. [] left facial eyelid swelling and eccyhmosis, abrasion left eyelid Back: No tenderness, no CVA tenderness. [] Extremities: No tenderness, no cyanosis, no clubbing, ROM intact, no edema. [] Neurologic: Alert and oriented X 3, normal motor function, normal sensory function, no focal deficits noted. [] Psychologic: Affect normal, judgement normal, mood normal. [] Current Patient Data: Labs: Laboratory Tests Test 05/24/20 23:13 05/24/20 23:19 White Blood Count 4.1 x10^3/uL (4.0-11.0) Red Blood Count 4.96 x10^6/uL (4.30-5.70) Hemoglobin 12.1 g/dL (13.0-17.5) L Hematocrit 38.6 % (39.0-53.0) L Mean Corpuscular Volume 78 fL (79-100) L Mean Corpuscular Hemoglobin 24 pg (25-35) L Mean Corpuscular Hemoglobin Concent 31 g/dL (31-37) Red Cell Distribution Width 23.4 % (11.5-14.5) H Platelet Count 136 x10^3/uL (140-400) L Neutrophils (%) (Auto) 43 % (31-73) Lymphocytes (%) (Auto) 44 % (24-48) Monocytes (%) (Auto) 11 % (0-9) H Eosinophils (%) (Auto) 1 % (0-3) Basophils (%) (Auto) 1 % (0-3) Neutrophils # (Auto) 1.8 x10^3/uL (1.8-7.7) Lymphocytes # (Auto) 1.8 x10^3/uL (1.0-4.8) Monocytes # (Auto) 0.5 x10^3/uL (0.0-1.1) Eosinophils # (Auto) 0.0 x10^3/uL (0.0-0.7) Basophils # (Auto) 0.1 x10^3/uL (0.0-0.2) Platelet Estimate Adequate (ADEQUATE) Hypochromasia Slight Anisocytosis Slight Microcytosis Slight Sodium Level 144 mmol/L (136-145) Potassium Level 4.3 mmol/L (3.5-5.1) Chloride Level 108 mmol/L (98-107) H Carbon Dioxide Level 24 mmol/L (21-32) Anion Gap 12 (6-14) Blood Urea Nitrogen 13 mg/dL (8-26) Creatinine 0.8 mg/dL (0.7-1.3) Estimated GFR (Cockcroft-Gault) 99.6 BUN/Creatinine Ratio 16 (6-20) Glucose Level 109 mg/dL (70-99) H Calcium Level 8.6 mg/dL (8.5-10.1) Total Bilirubin 0.4 mg/dL (0.2-1.0) Aspartate Amino Transferase (AST) 145 U/L (15-37) H Alanine Aminotransferase (ALT) 113 U/L (16-63) H Alkaline Phosphatase 80 U/L (46-116) Total Protein 7.4 g/dL (6.4-8.2) Albumin 3.5 g/dL (3.4-5.0) Albumin/Globulin Ratio 0.9 (1.0-1.7) L Ethyl Alcohol Level 473 mg/dL (0-10) *H Creatine Kinase 154 U/L (39-308) Laboratory Tests 05/24/20 23:13 Laboratory Tests 05/24/20 23:13 Vital Signs: Vital Signs Date Time Temp Pulse Resp B/P (MAP) Pulse Ox O2 Delivery O2 Flow Rate FiO2 05/25/20 00:27 90 17 153/86 (108) 96 Room Air 05/24/20 22:58 98.1 98.1 EKG: EKG: [] Radiology/Procedures: Radiology/Procedures: [] Impression: History: Reason: head injury, fall. Left eye swollen. Comparison: None. Procedure: Axial images are obtained of the head from the skull base through the vertex without IV contrast. Noncontrast helical CT of the cervical spine was performed. Axial, sagittal, and coronal reconstructions were obtained. Helical CT imaging of the facial bones is performed without IV contrast. Findings: The ventricles and sulci are prominent, consistent with age-related cerebral atrophy. There is mild periventricular white matter hypoattenuation. This is a nonspecific finding but is commonly due to chronic small vessel ischemic disease in a patient of this age. No mass-effect, midline shift, hemorrhage or obvious acute infarction is identified. Basilar cisterns are patent. Bone windows demonstrate no significant calvarial abnormality. There is degenerative change of the bilateral TMJ. Correlate to whether there was prior injury. No acute facial bone fracture. There is severe left frontal scalp hematoma. There is severe hematoma of the preseptal left orbit. The globes and post septal orbits are intact. The orbital floors are intact. The visualized paranasal sinuses are clear. Mastoid air cells are well aerated. There is no evidence of acute fracture or acute malalignment of the cervical spine. There are no perched or jumped facet joints. The vertebral body height and alignment are maintained. There is mild disc space narrowing of C6/C7 and C7/T1. No high-grade narrowing of the central canal is appreciated. Visualized soft tissues of the neck demonstrate no significant abnormalities. The visualized lung apices are clear. IMPRESSION: 1. No acute intracranial abnormality. 2. There is severe hematoma of the preseptal left orbit and left frontal scalp. The globes are intact. 3. No acute fracture of the cervical spine. 4. No acute facial bone fracture. IMPRESSION: 1. No acute traumatic injury in the chest, abdomen, or pelvis. 2. Stable ectasia of the ascending thoracic aorta. 3. Severe fatty infiltration of the liver. 4. There is a small hyperenhancing lesion in segment 2 of the liver that may be a flash filling hemangioma. Suggest attention on follow-up. 5. Distal colon diverticulosis. Course & Med Decision Making: Course & Med Decision Making Pertinent Labs and Imaging studies reviewed. (See chart for details) [] Dragon Disclaimer: Dragon Disclaimer: This electronic medical record was generated, in whole or in part, using a voice recognition dictation system. Departure Departure Impression: Primary Impression: Fall Additional Impressions: Facial contusion Alcohol intoxication Disposition: 01 DC HOME SELF CARE/HOMELESS Condition: STABLE Referrals: NO PCP (PCP) GEOVANNY GIORDANO MD Patient Instructions: Alcohol Intoxication, Facial or Scalp Contusion BING ROCHA I DO May 25, 2020 00:45
[2020-05-25] MEDS ORDERED: ERYTHROMYCIN 0.5% OPHTH OINTMENT 1GM TUBE. ONE ×2 (01:44→01:45)
[2020-05-25 01:50] VITALS: BP 153/86
[2020-05-25] MEDS ORDERED: ERYTHROMYCIN 0.5% OPHTH OINTMENT 1GM TUBE. OS ONE ×2 (02:00)
== END 2020-05-25 01:50 | disposition home or self-care (01) ==
LOC: ER 22:56
DX: S00.83XA Contusion of other part of head, initial encounter (principal); F10.229 Alcohol dependence with intoxication, unspecified; Y90.8 Blood alcohol level of 240 mg/100 ml or more; K57.30 Diverticulosis of large intestine without perforation or abscess without bleeding; K76.0 Fatty (change of) liver, not elsewhere classified; I10 Essential (primary) hypertension; W18.39XA Other fall on same level, initial encounter; Y93.89 Activity, other specified; Y92.89 Other specified places as the place of occurrence of the external cause; Y99.8 Other external cause status; M54.2 Cervicalgia
CPT/HCPCS: 36415; 70450; 70486; 71260; 72125; 74177; 80053; 82550; 85025; 99285; G0480; Q9967

== ENCOUNTER 2020-06-06 21:21 | Emergency (ER) | payer BC ==
[~2020-06-06] VITALS: Ht 175.3 cm; Wt 88.6 kg
--- NOTE | 2020-06-06 22:39 | PHYS DOC ---
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 Patient states that he last had a drink this morning. Patient states he has been feeling feeling shaky all day. Patient is a poor story is having difficulty remembering detail states that he fell a few days ago but does not believe that he was seen by Dr. Millan. Re view of medical records demonstrates the patient was seen here approximately 1 week ago after significant fall and had a CT scan of the head, cervical spine chest abdomen pelvis which was negative for any significant acute traumatic injury. Patient is separately complaining of significant left-sided elbow pain Review of Systems Review of Systems Constitutional: Denies fever or chills [] Eyes: Denies change in visual acuity, redness, or eye pain [] HENT: Denies nasal congestion or sore throat [] Respiratory: Denies cough or shortness of breath [] Cardiovascular: No additional information not addressed in HPI [] GI: Denies abdominal pain, nausea, vomiting, bloody stools or diarrhea [] : Denies dysuria or hematuria [] Musculoskeletal: Denies back pain or joint pain [] Integument: Denies rash or skin lesions [] Neurologic: Denies headache, focal weakness or sensory changes [] Endocrine: Denies polyuria or polydipsia [] All other systems were reviewed and found to be within normal limits, except as documented in this note. Current Medications Current Medications Current Medications Medications (Trade) Dose Ordered Sig/Jacqueline Start Time Stop Time Status Last Admin Dose Admin Info (CONTRAST GIVEN -- Rx MONITORING) 1 each PRN DAILY PRN 06/06/20 23:00 06/08/20 22:59 Iohexol (Omnipaque 300 Mg/ml) 75 ml 1X ONCE 06/06/20 23:00 06/06/20 23:01 DC 06/06/20 23:09 75 ML Ondansetron HCl (Zofran) 4 mg 1X ONCE 06/06/20 22:00 06/06/20 22:06 DC 06/06/20 23:26 4 MG Sodium Chloride 1,000 ml @ 1,000 mls/hr Q1H 06/06/20 22:00 06/06/20 22:59 DC 06/06/20 23:26 1,000 MLS/HR Vancomycin HCl 1.5 gm/Sodium Chloride 500 ml @ 250 mls/hr 1X ONCE 06/06/20 22:30 06/07/20 00:29 DC 06/06/20 23:27 250 MLS/HR Allergies Allergies Allergies Coded Allergies Type Severity Reaction Last Updated Verified No Known Drug Allergies 03/20/19 No Physical Exam Physical Exam Constitutional: Well developed, well nourished, no acute distress, non-toxic appearance. [] HENT: Normocephalic, bilateral periorbital ecchymosis with significant left upper eyelid swelling, bilateral external ears normal, oropharynx moist, no oral exudates, nose normal. [] Eyes: PERRLA, EOMI, conjunctiva normal, no discharge. [] Neck: Normal range of motion, no tenderness, supple, no stridor. [] Cardiovascular:Heart rate regular rhythm, no murmur [] Lungs & Thorax: Bilateral breath sounds clear to auscultation [] Abdomen: Bowel sounds normal, soft, no tenderness, no masses, no pulsatile masses. [] Skin: Warm, dry, no erythema, no rash. [] Back: No tenderness, no CVA tenderness. [] Extremities: No tenderness, no cyanosis, no clubbing, ROM intact, no edema. Severe left-sided elbow pain and tenderness with swelling around the area with an eschar over the lateral portion of the elbow, pain on active and passive range motion Neurologic: Alert and oriented X 3, normal motor function, normal sensory function, no focal deficits noted. [] Psychologic: Affect normal, judgement normal, mood normal. [] Current Patient Data Vital Signs Vital Signs Date Time Temp Pulse Resp B/P (MAP) Pulse Ox O2 Delivery O2 Flow Rate FiO2 06/06/20 21:30 98.9 129 21 164/104 (124) 97 Room Air 98.9 Lab Values Laboratory Tests Test 06/06/20 22:22 06/06/20 23:15 White Blood Count 7.1 x10^3/uL (4.0-11.0) Red Blood Count 4.77 x10^6/uL (4.30-5.70) Hemoglobin 12.0 g/dL (13.0-17.5) L Hematocrit 38.1 % (39.0-53.0) L Mean Corpuscular Volume 80 fL (79-100) Mean Corpuscular Hemoglobin 25 pg (25-35) Mean Corpuscular Hemoglobin Concent 32 g/dL (31-37) Red Cell Distribution Width 24.0 % (11.5-14.5) H Platelet Count 121 x10^3/uL (140-400) L Neutrophils (%) (Auto) 76 % (31-73) H Lymphocytes (%) (Auto) 7 % (24-48) L Monocytes (%) (Auto) 15 % (0-9) H Eosinophils (%) (Auto) 0 % (0-3) Basophils (%) (Auto) 1 % (0-3) Neutrophils # (Auto) 5.4 x10^3/uL (1.8-7.7) Lymphocytes # (Auto) 0.5 x10^3/uL (1.0-4.8) L Monocytes # (Auto) 1.1 x10^3/uL (0.0-1.1) Eosinophils # (Auto) 0.0 x10^3/uL (0.0-0.7) Basophils # (Auto) 0.1 x10^3/uL (0.0-0.2) Platelet Estimate Decreased (ADEQUATE) Polychromasia Slight Anisocytosis Mod Ovalocytes Few Prothrombin Time 12.7 SEC (11.7-14.0) Prothrombin Time INR 1.0 (0.8-1.1) Activated Partial Thromboplast Time 29 SEC (24-38) Sodium Level 140 mmol/L (136-145) Potassium Level 4.0 mmol/L (3.5-5.1) Chloride Level 103 mmol/L (98-107) Carbon Dioxide Level 25 mmol/L (21-32) Anion Gap 12 (6-14) Blood Urea Nitrogen 14 mg/dL (8-26) Creatinine 0.8 mg/dL (0.7-1.3) Estimated GFR (Cockcroft-Gault) 99.6 Glucose Level 126 mg/dL (70-99) H Lactic Acid Level 2.9 mmol/L (0.4-2.0) H Calcium Level 9.0 mg/dL (8.5-10.1) Total Bilirubin 0.7 mg/dL (0.2-1.0) Direct Bilirubin 0.3 mg/dL (0.0-0.2) H Aspartate Amino Transferase (AST) 108 U/L (15-37) H Alanine Aminotransferase (ALT) 99 U/L (16-63) H Alkaline Phosphatase 102 U/L (46-116) Total Protein 7.4 g/dL (6.4-8.2) Albumin 3.4 g/dL (3.4-5.0) Lipase 175 U/L (73-393) Ethyl Alcohol Level < 10 mg/dL (0-10) Urine Collection Type Unknown Urine Color [place] Urine Clarity Cloudy Urine pH (<5.0-8.0) Urine Specific [place] >=1.030 (1.000-1.030) Urine Protein mg/dL (NEG-TRACE) Urine Glucose (UA) mg/dL (NEG) Urine Ketones (Stick) mg/dL (NEG) Urine Blood (NEG) Urine Nitrite (NEG) Urine Bilirubin (NEG) Urine Urobilinogen Dipstick mg/dL (0.2 mg/dL) Urine Leukocyte Esterase (NEG) Urine RBC 0 /HPF (0-2) Urine WBC 1-4 /HPF (0-4) Urine Squamous Epithelial Cells Few /LPF Urine Bacteria 0 /HPF (0-FEW) Urine Mucus Marked /LPF Urine Opiates Screen Neg (NEG) Urine Methadone Screen Neg (NEG) Urine Barbiturates Neg (NEG) Urine Phencyclidine Screen Neg (NEG) Urine Amphetamine/Methamphetamine Neg (NEG) Urine Benzodiazepines Screen Neg (NEG) Urine Cocaine Screen Neg (NEG) Urine Cannabinoids Screen Neg (NEG) Urine Ethyl Alcohol Pos (NEG) Laboratory Tests 06/06/20 22:22 Laboratory Tests 06/06/20 22:22 EKG EKG [] Radiology/Procedures Radiology/Procedures Exam: CT left elbow without and with contrast INDICATION: Fall, evaluate for septic arthritis TECHNIQUE: Sequential axial images through the left elbow obtained before and after the administration of 75 mL of Omni 300 IV contrast. Sagittal and coronal reformatted images were reconstructed from the axial data and reviewed. Comparisons: None FINDINGS: Bone mineralization is normal. No acute or healed fractures. Mild soft tissue swelling overlying the olecranon. No joint effusion is identified. No abnormal areas of enhancement seen. IMPRESSION: 1. Mild soft tissue swelling overlying the olecranon. 2. No appreciable joint effusion on CT, lower CT is limited in evaluation for joint fluid. 3. No acute fractures. Exposure: One or more of the following in the visualized dose reduction techniques were utilized for this examination: 1. Automated exposure control 2. Adjustment of the MA and/or KV according to patient size 3. Use of iterative of reconstructive technique Course & Med Decision Making Course & Med Decision Making Pertinent Labs and Imaging studies reviewed. (See chart for details) 55-year-old male presented emergency department due to concern for alcohol withdrawal. Patient does not demonstrate any anxiety, delirium, hallucinations or significant tremor. Patient has evidence of old injuries but a CT scan of the head, max face, cervical spine, chest and pelvis were performed recently and were negative. At this time will obtain labs to make sure there is no other significant underlying etiology. Patient does have swelling of the left elbow which does raise concern for acute cellulitis. Will obtain a CT scan of the area to make sure there is no evidence of septic arthritis in this area as well. Dragon Disclaimer Dragon Disclaimer This electronic medical record was generated, in whole or in part, using a voice recognition dictation system. Departure Departure Impression: Primary Impression: Cellulitis of left elbow Disposition: 01 HOME / SELF CARE / HOMELESS Condition: GOOD Referrals: JINA LARRY MD Patient Instructions: Cellulitis Additional Instructions: EMERGENCY DEPARTMENT GENERAL DISCHARGE INSTRUCTIONS Thank you for coming to [facility] Emergency Department (ED) today and trusting us with you care. We trust that you had a positive experience in our Emergency Department. If you wish to speak to the department management, you may call the Director at [phone]. YOUR FOLLOW UP INSTRUCTIONS ARE FOLLOWS: 1. Do you have a private Doctor? If you do not have a private doctor, please ask for a resource list of physicians or clinics that may be able to assist you with follow up care. 2. The Emergency Physicain has interpreted your x-rays. The X-Ray specialist will also review them. If there is a change in the findings, you will be notified in 48 hours when at all possible. 3. A lab test or culture has been done, your results will be reviewed and you will be notified if you need a change in treatment. ADDITIONAL INSTRUCTIONS AND INFORMATION: 1. Your care today has been supervised by a physician who is specially trained in emergency care. Many problems require more than one evaluation for a complete diagnosis and treatment. We recommend that you schedule your follow up appointment as r ecommended to ensure complete treatment of you illness or injury. If you are unable to obtain follow up care and continue to have a problem, or if your condition worsens, we recommend that you return to the ED. 2. We are not able to safely determine your condition over the phone nor are we able to give sound medical advice over the phone. For these safety reasons, if you call for medical advice we will ask you to come to the ED for further evaluation. 3. If you have any questions regarding these discharge instructions please call the ED at [phone]. SAFETY INFORMATION: In the interest of safety, wellness, and injury prevention; we encourage you to wear your sealbelt, if you smoke; quite smoking, and we encourage family to use a protective helmet for bicycling and other sporting events that present an increased risk for head injury. IF YOUR SYMPTOMS WORSEN OR NEW SYMPTOMS DEVELOP, OR YOU HAVE CONCERNS ABOUT YOUR CONDITION; OR IF YOUR CONDITION WORSENS WHILE YOU ARE WAITING FOR YOUR FOLLOW UP APPOINTMENT; EITHER CONTACT YOUR PRIMARY CARE DOCTOR, THE PHYSICIAN WHOSE NAME AND NUMBER YOU WERE GIVEN, OR RETURN TO THE ED IMMEDIATELY. Scripts Sulfamethoxazole/Trimethoprim (BACTRIM DS TABLET) 1 Each Tablet 1 TAB PO BID for infection for 10 Days, #20 TAB Prov: HILDA NEGRETE MD 06/07/20 HILDA NEGRETE MD Jun 06, 2020 22:39
[2020-06-06 22:42] LABS: BASO # 0.1 x10^3/uL (0.0-0.2); BASO % 1 % (0-3); EOS % 0 % (0-3); HEMATOCRIT 38.1 % (39.0-53.0); LYMPH # 0.5 x10^3/uL (1.0-4.8); LYMPH % 7 % (24-48); MEAN CORPUSCULAR HEMOGLOBIN 25 pg (25-35); MEAN CORPUSCULAR HGB CONC 32 g/dL (31-37); MEAN CORPUSCULAR VOLUME 80 fL (79-100); MONO # 1.1 x10^3/uL (0.0-1.1); MONO % 15 % (0-9); NEUT # 5.4 x10^3/uL (1.8-7.7); NEUT % 76 % (31-73); PLATELET COUNT 121 x10^3/uL (140-400); RED BLOOD COUNT 4.77 x10^6/uL (4.30-5.70); WHITE BLOOD COUNT 7.1 x10^3/uL (4.0-11.0)
[2020-06-06 22:45] LABS: CREATININE 0.8 mg/dL (0.7-1.3); GFR 99.6
[2020-06-06 22:49] LABS: PROTHROMBIN TIME PATIENT 12.7 SEC (11.7-14.0)
[2020-06-06 22:51] LABS: ALBUMIN 3.4 g/dL (3.4-5.0); DIRECT BILIRUBIN 0.3 mg/dL (0.0-0.2); TOTAL BILIRUBIN 0.7 mg/dL (0.2-1.0); TOTAL PROTEIN 7.4 g/dL (6.4-8.2)
[2020-06-06] MEDS ORDERED: CONTRAST GIVEN. MC PRN (23:00)
[2020-06-06] MEDS: IOHEXOL 300 MG/ML 100ML VIAL. IV ONE (23:09)
[2020-06-06] MEDS: IV NORMAL SALINE 1000ML BAG 1,000 ML IV SCH (23:26)
[2020-06-06] MEDS: ONDANSETRON PF 4 MG/2 ML VIAL. IVP ONE (23:26)
[2020-06-06] MEDS: VANCOMYCIN 1.5 GM in IV NORMAL SALINE 500ML BAG 500 ML IV ONE (23:27)
--- NOTE | 2020-06-06 23:28 | RAD ---
Exam: CT head INDICATION: Fall TECHNIQUE: Sequential axial images through the head were obtained without the administration of IV co ntrast. Comparisons: 05/24/2020 FINDINGS: No focal parenchymal lesion or hemorrhage is identified. There is no midline shift or sulcal effaceme nt. No acute vascular territory infarction is identified. Hernandez-white distinction is preserved. The ventricular system is within normal limits without compression hydrocephalus. The basal cisterns are well maintained. Extra cranial soft tissue scalp contusion overlying the superior orbital ridge. The visualized portio ns of the paranasal sinuses and mastoid air cells are well-pneumatized. No acute fractures. IMPRESSION: Extra cranial soft tissue scalp contusion overlying the left superior orbital region without underlyi ng osseous abnormality. Exposure: One or more of the following in the visualized dose reduction techniques were utilized for this examination: 1. Automated exposure control 2. Adjustment of the MA and/or KV according to patient size Use of iterative of reconstructive technique Electronically signed by: Baldo Whitney MD (06/06/2020 11:26 PM) JASMINELSA
--- NOTE | 2020-06-06 23:32 | EKG ---
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
[2020-06-06 23:33] LABS: CLARITY,URINE CLOUDY; COLOR,URINE ORANGE
[2020-06-06 23:35] LABS: BACTERIA,URINE 0 /HPF (0-FEW); RBC,URINE 0 /HPF (0-2)
--- NOTE | 2020-06-06 23:36 | RAD ---
Exam: CT left elbow without and with contrast INDICATION: Fall, evaluate for septic arthritis TECHNIQUE: Sequential axial images through the left elbow obtained before and after the administratio n of 75 mL of Omni 300 IV contrast. Sagittal and coronal reformatted images were reconstructed from t he axial data and reviewed. Comparisons: None FINDINGS: Bone mineralization is normal. No acute or healed fractures. Mild soft tissue swelling overlying the olecranon. No joint effusion is identified. No abnormal areas of enhancement seen. IMPRESSION: 1. Mild soft tissue swelling overlying the olecranon. 2. No appreciable joint effusion on CT, lower CT is limited in evaluation for joint fluid. 3. No acute fractures. Exposure: One or more of the following in the visualized dose reduction techniques were utilized for this examination: 1. Automated exposure control 2. Adjustment of the MA and/or KV according to patient size 3. Use of iterative of reconstructive technique Electronically signed by: Baldo Whitney MD (06/06/2020 11:34 PM) [facility]
[2020-06-06 23:40] LABS: BARBITURATES NEG (NEG); BENZODIAZEPINES NEG (NEG); CANNABINOIDS NEG (NEG); COCAINE NEG (NEG); METHADONE NEG (NEG); OPIATES NEG (NEG); PHENCYCLIDINE NEG (NEG)
[2020-06-06 23:41] LABS: ANISOCYTOSIS MOD; OVALOCYTES FEW; PLT ESTIMATE DECREASED (ADEQUATE)
[2020-06-06 23:41] LABS: AMPHETAMINE/METHAMPHETAMINE NEG (NEG)
[2020-06-06 23:42] LABS: POLYCHROMASIA SLIGHT
[2020-06-07] MEDS ORDERED: SULF1TAB24 PO (00:48)
[2020-06-07 01:43] VITALS: BP 155/96
== END 2020-06-07 02:00 | disposition home or self-care (01) ==
LOC: ER 21:21
DX: L03.114 Cellulitis of left upper limb (principal); F10.239 Alcohol dependence with withdrawal, unspecified; R60.0 Localized edema; I10 Essential (primary) hypertension; Z98.890 Other specified postprocedural states
CPT/HCPCS: 36415; 70450; 73202; 80048; 80076; 80307; 81001; 83605; 83690; 85025; 85610; 85730; 86850; 86900; 86901; 93005; 96365; 96366; 96375; 99285; G0480; J2405; J3370; J7030; J7040; Q9967

== ENCOUNTER 2020-08-14 14:53 | Inpatient (IN) | payer BC ==
[~2020-08-14] VITALS: Ht 180.3 cm; Wt 88.1 kg
[2020-08-14] VITALS (8 sets, daily range): BP systolic 127–144; BP diastolic 87–103
[~2020-08-14 14:53] MED LIST changes: +SULF1TAB24 PO
[2020-08-14] MEDS ORDERED: IV NORMAL SALINE 1000ML BAG 1,000 ML IV ONE (15:00)
[2020-08-14 15:41] LABS: BASO # 0.1 x10^3/uL (0.0-0.2); BASO % 2 % (0-3); EOS % 0 % (0-3); HEMATOCRIT 41.8 % (39.0-53.0); HEMOGLOBIN 13.4 g/dL (13.0-17.5); LYMPH # 0.8 x10^3/uL (1.0-4.8); LYMPH % 13 % (24-48); MEAN CORPUSCULAR HEMOGLOBIN 27 pg (25-35); MEAN CORPUSCULAR HGB CONC 32 g/dL (31-37); MEAN CORPUSCULAR VOLUME 83 fL (79-100); MONO # 0.8 x10^3/uL (0.0-1.1); MONO % 14 % (0-9); NEUT # 4.2 x10^3/uL (1.8-7.7); NEUT % 71 % (31-73); PLATELET COUNT 135 x10^3/uL (140-400); RED BLOOD COUNT 5.07 x10^6/uL (4.30-5.70); RED CELL DISTRIBUTION WIDTH 23.6 % (11.5-14.5); WHITE BLOOD COUNT 5.9 x10^3/uL (4.0-11.0)
[2020-08-14 15:47] LABS: CALCIUM 8.9 mg/dL (8.5-10.1); CREATININE 1.4 mg/dL (0.7-1.3); GFR 52.2; POTASSIUM 3.5 mmol/L (3.5-5.1)
--- NOTE | 2020-08-14 15:50 | RAD ---
EXAM: Head CT without contrast; maxillofacial bone CT without contrast; cervical spine CT without con trast. HISTORY: Seizure. Pain. Trauma. TECHNIQUE: Computed tomographic images of the head, maxillofacial bones and cervical spine were obtai brittany without contrast. *One or more of the following individualized dose reduction techniques were utilized for this examina tion: 1. Automated exposure control. 2. Adjustment of the mA and/or kV according to patient size. 3. Use of iterative reconstruction technique. COMPARISON: 05/24/2020. FINDINGS: Head: There is curvilinear hyperdensity within the right frontal extra-axial space due to a prominent cortical vessel. There is no convincing acute or subacute intracranial hemorrhage. There is cerebral atrophy, greater than expected for patient age. The mastoid air cells are clear. No calvarial lesion is seen. Maxillofacial bones: There is stable minimal angulation of the left nasal bone likely due to remote t rauma or developmental in etiology. No acute maxillary facial bone fracture is seen. There is rightwa rd nasal septal deviation. There is minimal maxillary sinus mucosal thickening. The ostiomeatal units are patent. There is stable chronic deformity of the bilateral mandibular condyles. Cervical spine: There is minimal multilevel listhesis. There is degenerative endplate remodeling and facet arthropathy at multiple levels. No displaced fracture is seen. There is disc space narrowing pr edominantly at C6-C7. There is no suspicious lytic or sclerotic osseous lesion. The combination of de generative changes results in mild right foraminal stenosis at C2-C3, moderate right and mild left fo raminal stenosis at C3-C4, moderate right and [id number] left foraminal stenosis at C4-C5, mode rate right foraminal stenosis at C5-C6 and moderate right and mild left foraminal stenosis at C6-C7. IMPRESSION: 1. No acute intracranial finding or evidence of acute cervical spine trauma or maxillofacial bone tra catherine. 2. Cerebral atrophy. This is greater than expected for patient age. 3. Multilevel change involving the cervical spine, resulting in foraminal stenosis at the aforementio brittany levels. 4. Chronic deformity of the mandibular condyles. Electronically signed by: Rosibel Hester MD (08/14/2020 3:48 PM) [id number]
[2020-08-14 15:53] LABS: ALBUMIN 3.6 g/dL (3.4-5.0); MAGNESIUM 2.3 mg/dL (1.8-2.4); TOTAL PROTEIN 7.1 g/dL (6.4-8.2)
--- NOTE | 2020-08-14 15:59 | PHYS DOC ---
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 it was reported that he was seen wandering around there, then fell, face planted, having a seizure. EMS was called, they said he was in postictal stage, he was very confused. His family said he is an alcoholic, drinks a liter of VODKA DAILY. It was reported that his last drink was on Wednesday. Patient was still in postictal stage upon arrival to room. Review of Systems: Review of Systems: Constitutional: Denies fever or chills. [] Eyes: Denies change in visual acuity. [] HENT: Denies nasal congestion or sore throat. [] Respiratory: Denies cough or shortness of breath. [] Cardiovascular: Denies chest pain or edema. [] GI: Denies abdominal pain, nausea, vomiting, bloody stools or diarrhea. [] : Denies dysuria. [] Musculoskeletal: Denies back pain or joint pain. [] Integument: Denies rash. [] Neurologic: Headache, confusion, no focal weakness] Endocrine: Denies polyuria or polydipsia. [] Lymphatic: Denies swollen glands. [] Psychiatric: Denies depression or anxiety. [] Heart Score: C/O Chest Pain: N/A Risk Factors: Risk Factors: DM, Current or recent (<one month) smoker, HTN, HLP, family history of CAD, obesity. Risk Scores: Score 0 - 3: 2.5% MACE over next 6 weeks - Discharge Home Score 4 - 6: 20.3% MACE over next 6 weeks - Admit for Clinical Observation Score 7 - 10: 72.7% MACE over next 6 weeks - Early Invasive Strategies Current Medications: Current Medications Medications (Trade) Dose Ordered Sig/Jacqueline Start Time Stop Time Status Last Admin Dose Admin Lorazepam (Ativan Inj) 2 mg 1X ONCE 08/14/20 16:00 08/14/20 16:01 Multivitamins 10 ml/Thiamine HCl 100 mg/Folic Acid 1 mg/Sodium Chloride 1,011.2 ml @ 1,000.088 mls/hr 1X ONCE 08/14/20 16:00 08/14/20 17:00 Sodium Chloride 1,000 ml @ 1,000 mls/hr 1X ONCE 08/14/20 15:00 08/14/20 15:59 08/14/20 15:00 1,000 MLS/HR Allergies: Allergies: Allergies Coded Allergies Type Severity Reaction Last Updated Verified No Known Drug Allergies 03/20/19 No Physical Exam: PE: Constitutional: Well developed, well nourished, no acute distress, non-toxic mary earance. [] HENT: Normocephalic, left side forehead skin contusion, fresh blood in nasal nares, no septal hematoma, blood around the lips, bilateral external ears normal, oropharynx moist, no oral exudates, nose normal. [] Eyes: PERRLA, EOMI, conjunctiva normal, no discharge. [] Neck: Normal range of motion, no tenderness, supple, no stridor. [] Cardiovascular:Heart rate regular rhythm, no murmur [] Lungs & Thorax: Bilateral breath sounds clear to auscultation [] Abdomen: Bowel sounds normal, soft, no tenderness, no masses, no pulsatile masses. [] Skin: Warm, dry, pale and diaphoresis. Back: No tenderness, no CVA tenderness. [] Extremities: No tenderness, no cyanosis, no clubbing, ROM intact, no edema. [] Neurologic: awake and alert but very confuse, moving all extremities, following command, clear speech... Psychologic: Affect normal, judgement normal, mood normal. [] Current Patient Data: Labs: Laboratory Tests Test 08/14/20 15:02 08/14/20 15:22 Glucose (Fingerstick) 176 mg/dL (70-99) H White Blood Count 5.9 x10^3/uL (4.0-11.0) Red Blood Count 5.07 x10^6/uL (4.30-5.70) Hemoglobin 13.4 g/dL (13.0-17.5) Hematocrit 41.8 % (39.0-53.0) Mean Corpuscular Volume 83 fL (79-100) Mean Corpuscular Hemoglobin 27 pg (25-35) Mean Corpuscular Hemoglobin Concent 32 g/dL (31-37) Red Cell Distribution Width 23.6 % (11.5-14.5) H Platelet Count 135 x10^3/uL (140-400) L Neutrophils (%) (Auto) 71 % (31-73) Lymphocytes (%) (Auto) 13 % (24-48) L Monocytes (%) (Auto) 14 % (0-9) H Eosinophils (%) (Auto) 0 % (0-3) Basophils (%) (Auto) 2 % (0-3) Neutrophils # (Auto) 4.2 x10^3/uL (1.8-7.7) Lymphocytes # (Auto) 0.8 x10^3/uL (1.0-4.8) L Monocytes # (Auto) 0.8 x10^3/uL (0.0-1.1) Eosinophils # (Auto) 0.0 x10^3/uL (0.0-0.7) Basophils # (Auto) 0.1 x10^3/uL (0.0-0.2) Platelet Estimate Pending Sodium Level 138 mmol/L (136-145) Potassium Level 3.5 mmol/L (3.5-5.1) Chloride Level 100 mmol/L (98-107) Carbon Dioxide Level 13 mmol/L (21-32) L Anion Gap 25 (6-14) H Blood Urea Nitrogen 8 mg/dL (8-26) Creatinine 1.4 mg/dL (0.7-1.3) H Estimated GFR (Cockcroft-Gault) 52.2 BUN/Creatinine Ratio 6 (6-20) Glucose Level 183 mg/dL (70-99) H Calcium Level 8.9 mg/dL (8.5-10.1) Magnesium Level Pending Total Bilirubin Pending Aspartate Amino Transferase (AST) Pending Alanine Aminotransferase (ALT) Pending Alkaline Phosphatase Pending Total Protein Pending Albumin Pending Albumin/Globulin Ratio Pending Ethyl Alcohol Level < 10 mg/dL (0-10) Laboratory Tests 08/14/20 15:22 Laboratory Tests 08/14/20 15:22 Vital Signs: Vital Signs Date Time Temp Pulse Resp B/P (MAP) Pulse Ox O2 Delivery O2 Flow Rate FiO2 08/14/20 14:53 98.9 133 18 141/88 (105) 99 Room Air 98.9 Radiology/Procedures: Radiology/Procedures: [][facility] [address] [place] [address] IMAGING REPORT Signed PATIENT: PASQUALE ORELLANA ACCOUNT: [id number] : 1965 LOCATION: ER AGE: 55 SEX: M EXAM STATUS: PRE ER ORD. PHYSICIAN: BIJAN SMALL DO REASON: HAD A SEIZURE, FELL FACE PLANTED PROCEDURE: CT MAXILLOFACIAL WO CONTRAST EXAM: Head CT without contrast; maxillofacial bone CT without contrast; cervical spine CT without contrast. HISTORY: Seizure. Pain. Trauma. TECHNIQUE: Computed tomographic images of the head, maxillofacial bones and cervical spine were obtained without contrast. *One or more of the following individualized dose reduction techniques were utilized for this examination: 1. Automated exposure control. 2. Adjustment of the mA and/or kV according to patient size. 3. Use of iterative reconstruction technique. COMPARISON: 05/24/2020. FINDINGS: Head: There is curvilinear hyperdensity within the right frontal extra-axial sp zachary due to a prominent cortical vessel. There is no convincing acute or subacute intracranial hemorrhage. There is cerebral atrophy, greater than expected for patient age. The mastoid air cells are clear. No calvarial lesion is seen. Maxillofacial bones: There is stable minimal angulation of the left nasal bone likely due to remote trauma or developmental in etiology. No acute maxillary facial bone fracture is seen. There is rightward nasal septal deviation. There is minimal maxillary sinus mucosal thickening. The ostiomeatal units are patent. There is stable chronic deformity of the bilateral mandibular condyles. Cervical spine: There is minimal multilevel listhesis. There is degenerative endplate remodeling and facet arthropathy at multiple levels. No displaced fracture is seen. There is disc space narrowing predominantly at C6-C7. There is no suspicious lytic or sclerotic osseous lesion. The combination of degenerative changes results in mild right foraminal stenosis at C2-C3, moderate right and mild left foraminal stenosis at C3-C4, moderate right and [id number] left foraminal stenosis at C4-C5, moderate right foraminal stenosis at C5-C6 and moderate right and mild left foraminal stenosis at C6-C7. IMPRESSION: 1. No acute intracranial finding or evidence of acute cervical spine trauma or maxillofacial bone trauma. 2. Cerebral atrophy. This is greater than expected for patient age. 3. Multilevel change involving the cervical spine, resulting in foraminal stenosis at the aforementioned levels. 4. Chronic deformity of the mandibular condyles. Electronically signed by: Rosibel Oliveira MD (08/14/2020 3:48 PM) [id number] DICTATED and SIGNED BY: ROSIBEL OLIVEIRA MD DATE: 08/14/20 [id number] 0 Course & Med Decision Making: Course & Med Decision Making Pertinent Labs and Imaging studies reviewed. (See chart for details) Patient is a 55-year-old male who was brought here by EMS after he was fell, having a seizure, most likely due to alcohol withdrawal. Patient need to be admitted to hospital for further evaluation and treatment. Discussed with Dr. Phillips who agrees admit the patient to ICU Brayan Disclaimer: Brayan Disclaimer: This electronic medical record was generated, in whole or in part, using a voice recognition dictation system. Departure Departure Impression: Primary Impression: Alcohol related seizure Additional Impressions: Alcohol withdrawal Facial contusion Disposition: ADMITTED INPATIENT Admitting Physician: DOLORES (Dr. Phillips) Condition: STABLE Referrals: NO PCP (PCP) BIJAN SMALL DO Aug 14, 2020 15:59
[2020-08-14] MEDS ORDERED: MULTIVIT INFUSN,ADULT 4,VIT K 10 ML, THIAMINE INJ 100 MG, FOLIC ACID INJ 1 MG in IV NOR... IV ONE (16:00)
[2020-08-14] MEDS ORDERED: ONDANSETRON PF 4 MG/2 ML VIAL. IV PRN (16:30)
--- NOTE | 2020-08-14 16:48 | PDOC1 ---
History and Physical Date of Admission Date of Admission DATE: 08/14/20 TIME: 16:46 Identification/Chief Complaint Chief Complaint alcohol withdrawal seizure History of Present Illness History of Present Illness 55-year-old male past medical history of alcohol abuse, who presented to the ER after reportedly having an alcohol withdrawal seizure today Seizure was reportedly witnessed to ER for treatment of withdrawal symptoms. hx admitted multiple times for alcohol withdrawal and seizures. States he drinks around 1 pint of vodka daily his last drink was yesterday. After discussion with patient in the ER wanting treatment for his alcoholism is willing to go through a treatment program if available. He admits to alcohol relapse with residual back pain, drinking 8 beers plus a day recent images // X-ray obtained in the ER showed redemonstrated compression and vertical fractures of the L2 vertebral body without retropulsion. CTA chest was obtained due to tachycardia. CTA was negative for PE but did note ectasia of the ascending thoracic aorta measuring 4.4 cm and a linear filling defect along the ascending arch extending to the aortic root which could represent respiratory motion versus a dissection flap. hx Delirium tremens // severe Alcohol abuse acute // Alcohol withdrawal seizure //Dilated cardiomyopathy Past Medical History Past Medical History Past Medical History Past Medical History: Alcoholism, Hypertension, Other Additional Past Medical Histor: seizures with alcohol withdrawl Past Surgical History: Other Additional Past Surgical Histo: L ANKLE, had benign tumor removed from abdomen last year Smoking Status: Never Smoker Alcohol Use: Heavy Drug Use: None FHX DEPRESSION Cardiovascular: HTN Pulmonary: No pertinent hx CENTRAL NERVOUS SYSTEM: Seizure GI: Other Heme/Onc: Anemia NOS Hepatobiliary: No pertinent hx, Cirrhosis, Other Psych: Addictions Musculoskeletal: Osteoarthritis Rheumatologic: No pertinent hx Infectious disease: No pertinent hx Renal/: No pertinent hx Endocrine: No pertinent hx Past Surgical History Past Surgical History: Other Family History Family History: Alcohol Abuse, Coronary Artery Disease, Hypertension Social History Smoke: <1 pack per day ALCOHOL: heavy Drugs: None Current Problem List Problem List Problems Medical Problems: (1) Facial contusion Status: Acute Current Medications Current Medications Current Medications Sodium Chloride 1,000 ml @ 1,000 mls/hr 1X ONCE IV Last administered on 08/14/20at 15:00; Start 08/14/20 at 15:00; Stop 08/14/20 at 15:59; Status DC Lorazepam (Ativan Inj) 2 mg 1X ONCE IVP Last administered on 08/14/20at 16:33; Start 08/14/20 at 16:00; Stop 08/14/20 at 16:01; Status DC Multivitamins 10 ml/Thiamine HCl 100 mg/Folic Acid 1 mg/Sodium Chloride 1,011.2 ml @ 1,000.088 mls/hr 1X ONCE IV Last administered on 08/14/20at 16:35; Start 08/14/20 at 16:00; Stop 08/14/20 at 17:00 Ondansetron HCl (Zofran) 4 mg PRN Q8HRS PRN IV NAUSEA/VOMITING Last administered on 08/14/20at 16:31; Start 08/14/20 at 16:30; Stop 08/15/20 at 16:29 Sodium Chloride 1,000 ml @ 100 mls/hr Q10H IV ; Start 08/14/20 at 16:30; Stop 08/15/20 at 16:29 Active Scripts Active Bactrim Ds Tablet (Sulfamethoxazole/Trimethoprim) 1 Each Tablet 1 Tab PO BID 10 Days Methocarbamol 750 Mg Tablet 1,500 Mg PO PRN Q8HRS PRN 10 Days [Folic Acid] 1 MG Tablet 1 Mg PO DAILY 30 Days Vitamin B-1 (Thiamine Mononitrate) 100 Mg Tablet 100 Mg PO DAILY 30 Days Ativan (Lorazepam) 2 Mg Tablet 2 Mg PO TID PRN 3 Days Gabapentin (Gabapentin) 300 Mg Capsule 300 Mg PO TID 90 Days Catapres (Clonidine Hcl) 0.1 Mg Tablet 0.1 Mg PO Q8HRS 14 Days Reported No Known Medications Prior To Admisstion (Info) Each 1 Each 1X Allergies Allergies: Coded Allergies: No Known Drug Allergies (Unverified , 03/20/19) ROS General: YES: Fatigue, Appetite; No: Chills, Night Sweats, Malaise, Other PSYCHOLOGICAL ROS: YES: Anxiety, Depression, Memory difficulties; No: Behavioral Disorder, Concentration difficultie, Decreased libido, Disorientation, Hallucinations, Hostility, Irritablity, Mood Swings, Obsessive thoughts, Physical abuse, Sexual abuse, Sleep disturbances, Suicidal ideation, Other Eyes: No Blurry vision, No Decreased vision, No Double vision, No Dry eyes, No Excessive tearing, No Eye Pain, No Itchy Eyes, No Loss of vision, No Photophobia, No Scotomata, No Uses contacts, No Uses glasses, No Other HEENT: YES: Heacaches; No: Visual Changes, Hearing change, Nasal congestion, Nasal discharge, Oral lesions, Sinus pain, Sore Throat, Epistaxis, Sneezing, Snoring, Tinnitus, Vertigo, Vocal changes, Other ALLERGY AND IMMUNOLOGY: No: Hives, Insect Bite Sensitivity, Itchy/Watery Eyes, Nasal Congestion, Post Nasal Drip, Seasonal Allergies, Other Hematological and Lymphatic: No: Bleeding Problems, Blood Clots, Blood Transfusions, Brusing, Night Sweats, Pallor, Swollen Lymph Nodes, Other ENDOCRINE: No: Breast Changes, Galactorrhea, Hair Pattern Changes, Hot Flashes, Malaise/lethargy, Mood Swings, Palpitations, Polydipsia/polyuria, Skin Changes, Temperature Intolerance, Unexpected Weight Changes, Other Breast: No New/Changing Breast Lumps, No Nipple changes, No Nipple discharge, No Other Respiratory: No: Cough, Hemoptysis, Orthopnea, Pleuritic Pain, Shortness of breath, SOB with excertion, Sputum Changes, Stridor, Tachypnea, Wheezing, Other Cardiovascular: No Chest Pain, No Palpitations, No Orthopnea, No Paroxysmal Noc. Dyspnea, No Edema, No Lt Headedness, No Other Gastrointestinal: Yes Nausea, Yes Vomiting; No Abdominal Pain, No Diarrhea, No Constipation, No Melena, No Hematochezia, No Other Genitourinary: No Dysuria, No Frequency, No Incontinence, No Hematuria, No Retention, No Discharge, No Urgency, No Pain, No Flank Pain, No Other, No , No , No , No , No , No , No Musculoskeletal: Yes Gait Disturbance, Yes Joint Stiffness Neurological: Yes Confusion, Yes Dizziness, Yes Gait Disturbance; No Behavorial Changes, No Bowel/Bladder ControlChng, No Headaches, No Impaired Coord/balance, No Memory Loss, No Numbness/Tingling, No Seizures, No Speech Problems, No Tremors, No Visual Changes, No Weakness, No Other Skin: Yes Dry Skin; No Eczema, No Hair Changes, No Lumps, No Mole Changes, No Mottling, No Nail Changes, No Pruritus, No Rash, No Skin Lesion Changes, No Other, No Acne Physical Exam Physical Exam alert on gurney in er bed 1 HENT: Normocephalic, left side forehead skin contusion, fresh blood in nasal nares, no septal hematoma, blood around the lips, bilateral external ears normal, oropharynx moist, no oral exudates, nose normal. [] Eyes: PERRLA, EOMI, conjunctiva normal, no discharge. [] Neck: Normal range of motion, no tenderness, supple, no stridor. [] Cardiovascular:Heart rate regular rhythm, no murmur [] Lungs & Thorax: Bilateral breath sounds clear to auscultation [] Abdomen: Bowel sounds normal, soft, no tenderness, no masses, no pulsatile masses. [] Skin: Warm, dry, pale and diaphoresis. Back: No tenderness, no CVA tenderness. [] Extremities: No tenderness, no cyanosis, no clubbing, ROM intact, no edema. [] Neurologic: awake and alert but very confuse, moving all extremities, following command, clear speech... General: Alert, Oriented X3, Cooperative, mild distress HEENT: PERRLA, EOMI, Mucous membr. moist/pink Lungs: Clear to auscultation Breasts: Not examined Abdomen: Normal bowel sounds, Soft Rectal Exam: not examined PELVIC: Examination not indicated Extremities: No cyanosis Neuro: Normal speech, Cranial nerves 3-12 NL Psych/Mental Status: Mental status NL, Mood NL Vitals Vitals Vital Signs Date Time Temp Pulse Resp B/P (MAP) Pulse Ox O2 Delivery O2 Flow Rate FiO2 08/14/20 14:53 98.9 133 18 141/88 (105) 99 Room Air 98.9 Labs Labs Laboratory Tests Test 08/14/20 15:02 08/14/20 15:22 Glucose (Fingerstick) 176 mg/dL (70-99) White Blood Count 5.9 x10^3/uL (4.0-11.0) Red Blood Count 5.07 x10^6/uL (4.30-5.70) Hemoglobin 13.4 g/dL (13.0-17.5) Hematocrit 41.8 % (39.0-53.0) Mean Corpuscular Volume 83 fL (79-100) Mean Corpuscular Hemoglobin 27 pg (25-35) Mean Corpuscular Hemoglobin Concent 32 g/dL (31-37) Red Cell Distribution Width 23.6 % (11.5-14.5) Platelet Count 135 x10^3/uL (140-400) Neutrophils (%) (Auto) 71 % (31-73) Lymphocytes (%) (Auto) 13 % (24-48) Monocytes (%) (Auto) 14 % (0-9) Eosinophils (%) (Auto) 0 % (0-3) Basophils (%) (Auto) 2 % (0-3) Neutrophils # (Auto) 4.2 x10^3/uL (1.8-7.7) Lymphocytes # (Auto) 0.8 x10^3/uL (1.0-4.8) Monocytes # (Auto) 0.8 x10^3/uL (0.0-1.1) Eosinophils # (Auto) 0.0 x10^3/uL (0.0-0.7) Basophils # (Auto) 0.1 x10^3/uL (0.0-0.2) Sodium Level 138 mmol/L (136-145) Potassium Level 3.5 mmol/L (3.5-5.1) Chloride Level 100 mmol/L (98-107) Carbon Dioxide Level 13 mmol/L (21-32) Anion Gap 25 (6-14) Blood Urea Nitrogen 8 mg/dL (8-26) Creatinine 1.4 mg/dL (0.7-1.3) Estimated GFR (Cockcroft-Gault) 52.2 BUN/Creatinine Ratio 6 (6-20) Glucose Level 183 mg/dL (70-99) Calcium Level 8.9 mg/dL (8.5-10.1) Magnesium Level 2.3 mg/dL (1.8-2.4) Total Bilirubin 1.0 mg/dL (0.2-1.0) Aspartate Amino Transf (AST/SGOT) 63 U/L (15-37) Alanine Aminotransferase (ALT/SGPT) 74 U/L (16-63) Alkaline Phosphatase 80 U/L (46-116) Creatine Kinase 158 U/L (39-308) Troponin I Quantitative < 0.017 ng/mL (0.000-0.055) Total Protein 7.1 g/dL (6.4-8.2) Albumin 3.6 g/dL (3.4-5.0) Albumin/Globulin Ratio 1.0 (1.0-1.7) Ethyl Alcohol Level < 10 mg/dL (0-10) Laboratory Tests Test 08/14/20 15:02 08/14/20 15:22 Glucose (Fingerstick) 176 mg/dL (70-99) White Blood Count 5.9 x10^3/uL (4.0-11.0) Red Blood Count 5.07 x10^6/uL (4.30-5.70) Hemoglobin 13.4 g/dL (13.0-17.5) Hematocrit 41.8 % (39.0-53.0) Mean Corpuscular Volume 83 fL (79-100) Mean Corpuscular Hemoglobin 27 pg (25-35) Mean Corpuscular Hemoglobin Concent 32 g/dL (31-37) Red Cell Distribution Width 23.6 % (11.5-14.5) Platelet Count 135 x10^3/uL (140-400) Neutrophils (%) (Auto) 71 % (31-73) Lymphocytes (%) (Auto) 13 % (24-48) Monocytes (%) (Auto) 14 % (0-9) Eosinophils (%) (Auto) 0 % (0-3) Basophils (%) (Auto) 2 % (0-3) Neutrophils # (Auto) 4.2 x10^3/uL (1.8-7.7) Lymphocytes # (Auto) 0.8 x10^3/uL (1.0-4.8) Monocytes # (Auto) 0.8 x10^3/uL (0.0-1.1) Eosinophils # (Auto) 0.0 x10^3/uL (0.0-0.7) Basophils # (Auto) 0.1 x10^3/uL (0.0-0.2) Sodium Level 138 mmol/L (136-145) Potassium Level 3.5 mmol/L (3.5-5.1) Chloride Level 100 mmol/L (98-107) Carbon Dioxide Level 13 mmol/L (21-32) Anion Gap 25 (6-14) Blood Urea Nitrogen 8 mg/dL (8-26) Creatinine 1.4 mg/dL (0.7-1.3) Estimated GFR (Cockcroft-Gault) 52.2 BUN/Creatinine Ratio 6 (6-20) Glucose Level 183 mg/dL (70-99) Calcium Level 8.9 mg/dL (8.5-10.1) Magnesium Level 2.3 mg/dL (1.8-2.4) Total Bilirubin 1.0 mg/dL (0.2-1.0) Aspartate Amino Transf (AST/SGOT) 63 U/L (15-37) Alanine Aminotransferase (ALT/SGPT) 74 U/L (16-63) Alkaline Phosphatase 80 U/L (46-116) Creatine Kinase 158 U/L (39-308) Troponin I Quantitative < 0.017 ng/mL (0.000-0.055) Total Protein 7.1 g/dL (6.4-8.2) Albumin 3.6 g/dL (3.4-5.0) Albumin/Globulin Ratio 1.0 (1.0-1.7) Ethyl Alcohol Level < 10 mg/dL (0-10) Images Images Signed PATIENT: PASQUALE ORELLANA ACCOUNT: [id number] : 1965 LOCATION: ER AGE: 55 SEX: M EXAM STATUS: PRE ER ORD. PHYSICIAN: BIJAN SMALL DO REASON: HAD A SEIZURE, FELL FACE PLANTED PROCEDURE: CT MAXILLOFACIAL WO CONTRAST EXAM: Head CT without contrast; maxillofacial bone CT without contrast; cervical spine CT without contrast. HISTORY: Seizure. Pain. Trauma. TECHNIQUE: Computed tomographic images of the head, maxillofacial bones and cervical spine were obtained without contrast. *One or more of the following individualized dose reduction techniques were utilized for this examination: 1. Automated exposure control. 2. Adjustment of the mA and/or kV according to patient size. 3. Use of iterative reconstruction technique. COMPARISON: 05/24/2020. FINDINGS: Head: There is curvilinear hyperdensity within the right frontal extra-axial space due to a prominent cortical vessel. There is no convincing acute or subacute intracranial hemorrhage. There is cerebral atrophy, greater than expected for patient age. The mastoid air cells are clear. No calvarial lesion is seen. Maxillofacial bones: There is stable minimal angulation of the left nasal bone likely due to remote trauma or developmental in etiology. No acute maxillary facial bone fracture is seen. There is rightward nasal septal deviation. There is minimal maxillary sinus mucosal thickening. The ostiomeatal units are patent. There is stable chronic deformity of the bilateral mandibular condyles. Cervical spine: There is minimal multilevel listhesis. There is degenerative endplate remodeling and facet arthropathy at multiple levels. No displaced fracture is seen. There is disc space narrowing predominantly at C6-C7. There is no suspicious lytic or sclerotic osseous lesion. The combination of degenerative changes results in mild right foraminal stenosis at C2-C3, moderate right and mild left foraminal stenosis at C3-C4, moderate right and [id number] left foraminal stenosis at C4-C5, moderate right foraminal stenosis at C5-C6 and moderate right and mild left foraminal stenosis at C6-C7. IMPRESSION: 1. No acute intracranial finding or evidence of acute cervical spine trauma or maxillofacial bone trauma. 2. Cerebral atrophy. This is greater than expected for patient age. 3. Multilevel change involving the cervical spine, resulting in foraminal stenosis at the aforementioned levels. 4. Chronic deformity of the mandibular condyles. Electronically signed by: Rosibel Oliveira MD (08/14/2020 3:48 PM) [id number] DICTATED and SIGNED BY: ROSIBEL OLIVEIRA MD DATE: 08/14/20 [id number] VTE Prophylaxis Ordered VTE Prophylaxis Devices: Contraindicated VTE Pharmacological Prophylaxi: Yes Assessment/Plan Assessment/Plan impression Acute seizure with alcohol withdrawl FALL WITH HEAD CONTUSION, POA Alcoholism, Hypertension, Depression HX Delirium tremens Dilated cardiomyopathy Cerebral atrophy. This is greater than expected for patient age // .curvilinear hyperdensity within the right frontal extra-axial space due to a prominent cortical vessel. There is no convincing acute or subacute intracranial hemorrhage. Multilevel change involving the cervical spine, resulting in foraminal stenosis Metabolic encephalopathy , acute plan admit ICU Neurology consult CIWA protocol fall precautions pat team consult 42 min cc time Justifications for Admission Other Justification Alcohol withdrawal, seizure CEDRIC EAGLE MD Aug 14, 2020 16:48
[2020-08-14 16:50] LABS: ANISOCYTOSIS MOD
[2020-08-14 16:52] LABS: PLT ESTIMATE DECREASED (ADEQUATE); POIKILOCYTOSIS MOD
[2020-08-14 16:53] LABS: OVALOCYTES MOD
[2020-08-14 16:54] LABS: POLYCHROMASIA PRESENT; SPHEROCYTES FEW; TEAR DROP CELLS FEW
[2020-08-14 16:55] LABS: SCHISTOCYTES OCC
[2020-08-14 17:08] LABS: BARBITURATES NEG (NEG); BENZODIAZEPINES NEG (NEG); CANNABINOIDS NEG (NEG); COCAINE NEG (NEG); METHADONE NEG (NEG); OPIATES NEG (NEG); PHENCYCLIDINE NEG (NEG)
[2020-08-14 17:09] LABS: AMPHETAMINE/METHAMPHETAMINE NEG (NEG)
[2020-08-14] MEDS ORDERED: IV NORMAL SALINE 1000ML BAG 1,000 ML IV SCH (17:30)
[2020-08-14] MEDS ORDERED: BISACODYL 10 MG SUPP.RECT. PR PRN (17:30)
[2020-08-14] MEDS ORDERED: LACTULOSE 20 GM/30 ML SOLUTION. PO PRN (17:30)
[2020-08-14] MEDS ORDERED: MAG HYDROX/ALUMINUM HYD/SIMETH 30 ML ORAL.SUSP PO PRN (17:30)
[2020-08-14] MEDS ORDERED: CALCIUM CARBONATE 500 MG TAB.CHEW PO PRN (17:30)
[2020-08-14] MEDS ORDERED: cloNIDine HCL 0.1 MG TABLET PO PRN (17:30)
[2020-08-14] MEDS ORDERED: ONDANSETRON PF 4 MG/2 ML VIAL. IVP PRN (17:30)
[2020-08-14] MEDS ORDERED: 0.9 % SODIUM CHLORIDE 10 ML DISP.SYRIN. IV PRN (17:30)
[2020-08-14] MEDS: IV NORMAL SALINE 1000ML BAG 1,000 ML IV SCH (18:19)
--- NOTE | 2020-08-14 18:42 | NUR ---
Patient arrived on unit at 1800 accompanied by ED RN. Patient is alert, but when asked what his name is, he just stared at RNs and eventually said "I don't know". Unable to ask admission questions at this time to the patient. Called routine consult to Dr. Rondon. Vital signs stable.
[2020-08-14] MEDS ORDERED: HYDROcodone/APAP 5/325MG 1 TAB TABLET PO PRN (19:45)
[2020-08-14] MEDS: LABETALOL 20 MG/4 ML DISP.SYRIN. IVP PRN (19:49)
--- NOTE | 2020-08-14 21:00 | NUR ---
Talked to patients , Katt, about status and plan of care. She stated " Not to be rude at all, but I am completely sick of this. I have two daughters to take care of, I dont need another child. This is the millionth time he has been in there for alcohol withdrawal and nothing has changed. He can not come home- the apartment complex will not allow him too. I dont know what he is planning on doing after he janet up, but its sure not coming back here. Rehab might be his best option." I informed her that we can consult social work and see what his options are in terms of rehabs. Will relay this information to day shift tomorrow.
[2020-08-14] MEDS: FAMOTIDINE 20 MG/2 ML VIAL IVP SCH (21:21)
[2020-08-14] MEDS: HEPARIN for SUB-Q USE 5,000 UNIT/ML VIAL. SQ SCH (21:29)
[2020-08-14] MEDS ORDERED: ATROPINE 0.5 MG/5 ML DISP.SYRINGE. IV PRN (23:15)
[2020-08-14] MEDS: HALOPERIDOL LACTATE 5 MG/ML VIAL. IVP PRN (23:17)
[2020-08-14] MEDS: DEXMEDETOMIDINE 400 MCG in IV NORMAL SALINE 100ML 96 ML IV PRN (23:45)
[2020-08-15] VITALS (22 sets, daily range): BP systolic 100–153; BP diastolic 51–106
[2020-08-15] MEDS: IV NORMAL SALINE 1000ML BAG 1,000 ML IV SCH ×2 (02:30→11:44)
[2020-08-15] MEDS: HEPARIN for SUB-Q USE 5,000 UNIT/ML VIAL. SQ SCH ×3 (06:04→21:58)
--- NOTE | 2020-08-15 06:25 | EKG ---
[facility] [address] [place] [address] Test Date: 2020-08-14 Test Time: 17:29:50 Pat Name: PASQUALE ORELLANA Department: Room: Gender: M Alteration Specialist: : 1965 Requested By: BIJAN SMALL Order Number: [id number] Reading MD: Measurements Intervals [place] Rate: 149 P: UT: QRS: -27 QRSD: 88 T: 18 QT: 318 QTc: 505 Interpretive Statements SUPRAVENTRICULAR TACHYCARDIA LEFTWARD AXIS R-S TRANSITION ZONE IN V LEADS DISPLACED TO THE LEFT NO SPECIFIC ECG ABNORMALITIES RI6.02 No previous ECG available for comparison
[2020-08-15] MEDS: DEXMEDETOMIDINE 400 MCG in IV NORMAL SALINE 100ML 96 ML IV PRN ×2 (06:30→18:02)
[2020-08-15 06:33] LABS: ALBUMIN 2.4 g/dL (3.4-5.0); ALBUMIN/GLOBULIN RATIO 0.7 (1.0-1.7); CALCIUM 7.9 mg/dL (8.5-10.1); CREATININE 0.8 mg/dL (0.7-1.3); GFR 99.6; POTASSIUM 4.1 mmol/L (3.5-5.1); TOTAL BILIRUBIN 1.3 mg/dL (0.2-1.0); TOTAL PROTEIN 5.9 g/dL (6.4-8.2)
--- NOTE | 2020-08-15 07:00 | PDOC ---
[facility] PROGRESS NOTE Date of Service DOS: DATE: 08/15/20 TIME: 07:00 Chief Complaint Chief Complaint Acute seizure with alcohol withdrawl FALL WITH HEAD CONTUSION, POA Alcoholism, Hypertension, Depression Delirium tremens Dilated cardiomyopathy Cerebral atrophy. This is greater than expected for patient age // .curvilinear hyperdensity within the right frontal extra-axial space due to a prominent cor tical vessel. There is no convincing acute or subacute intracranial hemorrhage. Multilevel change involving the cervical spine, resulting in foraminal stenosis Metabolic encephalopathy , acute History of Present Illness History of Present Illness 55-year-old male past medical history of alcohol abuse, who presented to the ER after reportedly having an alcohol withdrawal seizure today Seizure was reportedly witnessed to ER for treatment of withdrawal symptoms. hx admitted multiple times for alcohol withdrawal and seizures. States he drinks around 1 pint of vodka daily his last drink was yesterday. After discussion with patient in the ER wanting treatment for his alcoholism is willing to go through a treatment program if available. He admits to alcohol relapse with residual back pain, drinking 8 beers plus a day recent images // X-ray obtained in the ER showed redemonstrated compression and vertical fractures of the L2 vertebral body without retropulsion. CTA chest was obtained due to tachycardia. CTA was negative for PE but did note ectasia of the ascending thoracic aorta measuring 4.4 cm and a linear filling defect along the ascending arch extending to the aortic root which could represent respiratory motion versus a dissection flap. hx Delirium tremens // severe Alcohol abuse acute // Alcohol withdrawal seizure //Dilated cardiomyopathy Afebrile. Albumin 2.4. Very agitated despite 4 mg of IV Ativan, on Precedex infusion. No chest pain or shortness of breath. Vitals/I&O Vitals/I&O: Vital Signs Date Time Temp Pulse Resp B/P (MAP) Pulse Ox O2 Delivery O2 Flow Rate FiO2 08/15/20 05:55 68 20 111/82 (92) 94 Venturi Mask 2.0 08/15/20 05:00 98.4 98.4 I & O 08/14/20 08/14/20 08/15/20 15:00 23:00 07:00 Intake Total 2011.2 ml 1045 ml Output Total 50 ml 750 ml Balance 1961.2 ml 295 ml Physical Exam General: Alert, Oriented X3, Cooperative, mild distress Lungs: Clear Abdomen: Normal bowel sounds, Soft Extremities: No cyanosis Labs Labs: Laboratory Tests Test 08/14/20 15:02 08/14/20 15:22 08/14/20 16:42 08/15/20 05:30 Glucose (Fingerstick) 176 mg/dL (70-99) White Blood Count 5.9 x10^3/uL (4.0-11.0) Red Blood Count 5.07 x10^6/uL (4.30-5.70) Hemoglobin 13.4 g/dL (13.0-17.5) Hematocrit 41.8 % (39.0-53.0) Mean Corpuscular Volume 83 fL (79-100) Mean Corpuscular Hemoglobin 27 pg (25-35) Mean Corpuscular Hemoglobin Concent 32 g/dL (31-37) Red Cell Distribution Width 23.6 % (11.5-14.5) Platelet Count 135 x10^3/uL (140-400) Neutrophils (%) (Auto) 71 % (31-73) Lymphocytes (%) (Auto) 13 % (24-48) Monocytes (%) (Auto) 14 % (0-9) Eosinophils (%) (Auto) 0 % (0-3) Basophils (%) (Auto) 2 % (0-3) Neutrophils # (Auto) 4.2 x10^3/uL (1.8-7.7) Lymphocytes # (Auto) 0.8 x10^3/uL (1.0-4.8) Monocytes # (Auto) 0.8 x10^3/uL (0.0-1.1) Eosinophils # (Auto) 0.0 x10^3/uL (0.0-0.7) Basophils # (Auto) 0.1 x10^3/uL (0.0-0.2) Platelet Estimate Decreased (ADEQUATE) Large Platelets Present Polychromasia Present Poikilocytosis Mod Anisocytosis Mod Macrocytosis Slight Spherocytes Few Tear Drop Cells Few Ovalocytes Mod Crenated Cell Present Schistocytes Occ Sodium Level 138 mmol/L (136-145) 140 mmol/L (136-145) Potassium Level 3.5 mmol/L (3.5-5.1) 4.1 mmol/L (3.5-5.1) Chloride Level 100 mmol/L (98-107) 110 mmol/L (98-107) Carbon Dioxide Level 13 mmol/L (21-32) 18 mmol/L (21-32) Anion Gap 25 (6-14) 12 (6-14) Blood Urea Nitrogen 8 mg/dL (8-26) 6 mg/dL (8-26) Creatinine 1.4 mg/dL (0.7-1.3) 0.8 mg/dL (0.7-1.3) Estimated GFR (Cockcroft-Gault) 52.2 99.6 BUN/Creatinine Ratio 6 (6-20) 8 (6-20) Glucose Level 183 mg/dL (70-99) 100 mg/dL (70-99) Calcium Level 8.9 mg/dL (8.5-10.1) 7.9 mg/dL (8.5-10.1) Phosphorus Level 3.3 mg/dL (2.6-4.7) Magnesium Level 2.3 mg/dL (1.8-2.4) Total Bilirubin 1.0 mg/dL (0.2-1.0) 1.3 mg/dL (0.2-1.0) Aspartate Amino Transf (AST/SGOT) 63 U/L (15-37) 47 U/L (15-37) Alanine Aminotransferase (ALT/SGPT) 74 U/L (16-63) 52 U/L (16-63) Alkaline Phosphatase 80 U/L (46-116) 63 U/L (46-116) Creatine Kinase 158 U/L (39-308) Troponin I Quantitative < 0.017 ng/mL (0.000-0.055) Total Protein 7.1 g/dL (6.4-8.2) 5.9 g/dL (6.4-8.2) Albumin 3.6 g/dL (3.4-5.0) 2.4 g/dL (3.4-5.0) Albumin/Globulin Ratio 1.0 (1.0-1.7) 0.7 (1.0-1.7) Thyroid Stimulating Hormone (TSH) 3.435 uIU/mL (0.358-3.74) Ethyl Alcohol Level < 10 mg/dL (0-10) Urine Opiates Screen Neg (NEG) Urine Methadone Screen Neg (NEG) Urine Barbiturates Neg (NEG) Urine Phencyclidine Screen Neg (NEG) Urine Amphetamine/Methamphetamine Neg (NEG) Urine Benzodiazepines Screen Neg (NEG) Urine Cocaine Screen Neg (NEG) Urine Cannabinoids Screen Neg (NEG) Urine Ethyl Alcohol Neg (NEG) Prothrombin Time 14.0 SEC (11.7-14.0) Prothromb Time International Ratio 1.1 (0.8-1.1) Activated Partial Thromboplast Time 23 SEC (24-38) Assessment and Plan Assessmemt and Plan Problems Medical Problems: (1) Facial contusion Status: Acute Comment Review of Relevant I have reviewed the following items lana (where applicable) has been applied. Medications: Current Medications Medications (Trade) Dose Ordered Sig/Jacqueline Route PRN Reason Start Time Stop Time Status Last Admin Dose Admin Sodium Chloride 1,000 ml @ 1,000 mls/hr 1X ONCE IV 08/14/20 15:00 08/14/20 15:59 DC 08/14/20 15:00 Lorazepam (Ativan Inj) 2 mg 1X ONCE IVP 08/14/20 16:00 08/14/20 16:01 DC 08/14/20 16:33 Multivitamins 10 ml/Thiamine HCl 100 mg/Folic Acid 1 mg/Sodium Chloride 1,011.2 ml @ 1,000.088 mls/hr 1X ONCE IV 08/14/20 16:00 08/14/20 17:00 DC 08/14/20 16:35 Ondansetron HCl (Zofran) 4 mg PRN Q8HRS PRN IV NAUSEA/VOMITING 08/14/20 16:30 08/15/20 16:29 08/14/20 16:31 Sodium Chloride 1,000 ml @ 100 mls/hr Q10H IV 08/14/20 16:30 08/15/20 16:29 08/15/20 02:30 Lorazepam (Ativan Inj) 2 mg PRN Q1HR PRN IV For CIWA 8-14 08/14/20 17:30 08/14/20 21:22 Lorazepam (Ativan Inj) 4 mg PRN Q1HR PRN IV For CIWA 15 or greater 08/14/20 17:30 08/14/20 23:16 Haloperidol Lactate (Haldol Inj) 5 mg PRN Q4HRS PRN IVP Hallucinatns,Confusn,Delirium 08/14/20 17:30 08/14/20 23:17 Famotidine (Pepcid Vial) 20 mg BID IVP 08/14/20 21:00 08/14/20 21:21 Heparin Sodium (Porcine) (Heparin Sodium) 5,000 unit Q8HRS SQ 08/14/20 22:00 08/15/20 06:04 Acetaminophen/ Hydrocodone Bitart (Lortab 5/325) 1 tab PRN Q6HRS PRN PO PAIN 08/14/20 19:45 08/14/20 19:48 Labetalol HCl (Normodyne Iv Push) 10 mg PRN Q4HRS PRN IVP HYPERTENSION 08/14/20 19:45 08/14/20 19:49 Dexmedetomidine HCl 400 mcg/ Sodium Chloride 100 ml @ 4.39 mls/hr CONT PRN IV PER PROTOCOL 08/14/20 23:15 08/15/20 06:30 Justifications for Admission Other Justification Alcohol withdrawal, seizure DYAN SANDOVAL MD Aug 15, 2020 07:00
[2020-08-15 07:35] LABS: BASO % 1 % (0-3); EOS % 0 % (0-3); HEMATOCRIT 34.8 % (39.0-53.0); LYMPH % 19 % (24-48); MEAN CORPUSCULAR HEMOGLOBIN 27 pg (25-35); MEAN CORPUSCULAR HGB CONC 32 g/dL (31-37); MEAN CORPUSCULAR VOLUME 84 fL (79-100); MONO # 0.9 x10^3/uL (0.0-1.1); MONO % 17 % (0-9); NEUT # 3.4 x10^3/uL (1.8-7.7); NEUT % 64 % (31-73); PLATELET COUNT 105 x10^3/uL (140-400); RED BLOOD COUNT 4.17 x10^6/uL (4.30-5.70); RED CELL DISTRIBUTION WIDTH 22.8 % (11.5-14.5); WHITE BLOOD COUNT 5.4 x10^3/uL (4.0-11.0)
[2020-08-15] MEDS ORDERED: MULTIVITAMIN with MINERAL TABLET. PO SCH (09:00)
[2020-08-15] MEDS ORDERED: THIAMINE 100 MG TABLET. PO SCH (09:00)
[2020-08-15] MEDS ORDERED: FOLIC ACID 1 MG TABLET. PO SCH (09:00)
[2020-08-15] MEDS: diphenhydrAMINE 50 MG/ML VIAL IVP PRN (09:07)
[2020-08-15] MEDS: HALOPERIDOL LACTATE 5 MG/ML VIAL. IVP PRN ×3 (09:07→23:23)
[2020-08-15] MEDS: FAMOTIDINE 20 MG/2 ML VIAL IVP SCH ×2 (09:45→21:17)
--- NOTE | 2020-08-15 09:48 | CARD ---
MR#: [id number] Date of Study: 08/15/2020 Ordering Physician: CEDRIC EAGLE, Referring Physician: CEDRIC EAGLE Tech: Tristan Andrade [facility] APPROVED REPORT EXAM: Two-dimensional and M-mode echocardiogram with Doppler and color Doppler. Other Information Quality : AverageHR: 67bpm Rhythm : NSR INDICATION Congestive Heart Failure RISK FACTORS Hyperlipidemia Etoh abuse 2D DIMENSIONS Left Atrium(2D)3.6 (1.6-4.0cm)IVSd1.3 (0.7-1.1cm) Aortic Root(2D)3.7 (2.0-3.7cm)LVDd4.2 (3.9-5.9cm) LVOT Diameter2.3 (1.8-2.4cm)PWd1.3 (0.7-1.1cm) LVDs3.2 (2.5-4.0cm)FS (%) 25.4 % SV40.5 mlLVEF(%)50.4 (>50%) Aortic Valve AoV Peak Cristiano.109.4cm/sAoV VTI22.8cm AO Peak GR.4.8mmHgLVOT Peak Cristiano.90.6cm/s AO Mean GR.2mmHgAVA (VMAX)3.30cm2 Mitral Valve MV E Ywmrekrb86.1cm/sMV E Peak Gr.3mmHg MV DECEL [id number] A Giwbjmsw58.6cm/s MV E Mean Gr.1mmHgE/A Ratio0.6 Pulmonary Valve PV Peak Xpzvcpxi58.3cm/s Tricuspid Valve TR P. [id number]/sTR Peak Gr.20mmHg LEFT VENTRICLE The left ventricle is normal size. There is mild to moderate concentric left ventricular hypertrophy. The systolic function is mildly impaired. EF 45% There is mild global hypokinesis. Transmitral Doppl er flow pattern is Grade I-abnormal relaxation pattern. No left ventricle thrombus noted on this stud y. RIGHT VENTRICLE The right ventricle is normal size. There is normal right ventricular wall thickness. The right ventr icular systolic function is normal. ATRIA The left atrium size is normal. The right atrium size is normal. The interatrial septum is intact wit h no evidence for an atrial septal defect or patent foramen ovale as noted on 2-D or Doppler imaging. AORTIC VALVE The aortic valve is normal in structure and function. Doppler and Color Flow revealed no significant aortic regurgitation. There is no significant aortic valvular stenosis. There is no aortic valvular v egetation. MITRAL VALVE The mitral valve is normal in structure and function. There is no evidence of mitral valve prolapse. There is no mitral valve stenosis. Doppler and Color-flow revealed trace mitral regurgitation. TRICUSPID VALVE The tricuspid valve is normal in structure and function. Doppler and Color Flow revealed no tricuspid valve regurgitation noted. There is no tricuspid valve prolapse or vegetation. There is no tricuspid valve stenosis. PULMONIC VALVE The pulmonary valve is normal in structure and function. Doppler and Color Flow revealed trace pulmon ic valvular regurgitation. There is no pulmonic valvular stenosis. GREAT VESSELS The aortic root is normal in size. Ascending aorta is mildly dilated (4.3cm) PERICARDIAL EFFUSION There is no pleural effusion. There is no evidence of significant pericardial effusion. Critical Notification Critical Value: No <Conclusion> There is mild to moderate concentric left ventricular hypertrophy. The systolic function is mildly impaired. EF 45% There is mild global hypokinesis. Ascending aorta is mildly dilated (4.3cm) Signed by : Owen Negron, Electronically Approved : 08/15/2020 09:48:30
--- NOTE | 2020-08-15 13:19 | PDOC2 ---
NEUROLOGY CONSULT Date of Service DOS: DATE: 08/15/20 TIME: 13:11 Reason for Consult Reason for Consult: Alcohol withdrawal seizure Referring Physician Referring Physician: Dr. Phillips Source Source: Chart review History of Present Illness History of Present Illness The patient is a 55-year-old right-handed male with a history of several admissions here for alcohol-related seizures. I have in fact seen him twice in 2016 and also 2019. MRI in 2017 (07/08) was negative. I have never obtained an EEG or started him on anticonvulsants. He drinks 1 pint of vodka daily or at least 8 beers, his last drink was 2 days before admission. Patient was found wandering and then did a face plant and bystanders witnessed a seizure, but no medical personnel saw this. He is currently on dexmedetomidine. 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, alcohol as above, no tobacco Current Medications Current Medications Current Medications Sodium Chloride 1,000 ml @ 1,000 mls/hr 1X ONCE IV Last administered on 08/14/20at 15:00; Start 08/14/20 at 15:00; Stop 08/14/20 at 15:59; Status DC Lorazepam (Ativan Inj) 2 mg 1X ONCE IVP Last administered on 08/14/20at 16:33; Start 08/14/20 at 16:00; Stop 08/14/20 at 16:01; Status DC Multivitamins 10 ml/Thiamine HCl 100 mg/Folic Acid 1 mg/Sodium Chloride 1,011.2 ml @ 1,000.088 mls/hr 1X ONCE IV Last administered on 08/14/20at 16:35; Start 08/14/20 at 16:00; Stop 08/14/20 at 17:00; Status DC Ondansetron HCl (Zofran) 4 mg PRN Q8HRS PRN IV NAUSEA/VOMITING Last administered on 08/14/20at 16:31; Start 08/14/20 at 16:30; Stop 08/15/20 at 16:29 Sodium Chloride 1,000 ml @ 100 mls/hr Q10H IV Last administered on 08/15/20at 11:44; Start 08/14/20 at 16:30; Stop 08/15/20 at 16:29 Thiamine Mononitrate (Vitamin B-1) 100 mg DAILY PO ; Start 08/15/20 at 09:00 Folic Acid (Folic Acid) 1 mg DAILY PO ; Start 08/15/20 at 09:00 Multivitamins (Thera M Plus) 1 tab DAILY PO ; Start 08/15/20 at 09:00 Folic Acid (Folic Acid) 1 mg DAILY PO ; Start 08/19/20 at 09:00; Status Cancel Thiamine Mononitrate (Vitamin B-1) 100 mg DAILY PO ; Start 08/19/20 at 09:00; Status Cancel Lorazepam (Ativan) 4 mg PRN Q1HR PRN PO For CIWA 8-14; Start 08/14/20 at 17:30 Lorazepam (Ativan) 8 mg PRN Q1HR PRN PO For CIWA 15 or greater; Start 08/14/20 at 17:30 Lorazepam (Ativan Inj) 2 mg PRN Q1HR PRN IV For CIWA 8-14 Last administered on 08/14/20at 21:22; Start 08/14/20 at 17:30 Lorazepam (Ativan Inj) 4 mg PRN Q1HR PRN IV For CIWA 15 or greater Last administered on 08/15/20at 11:49; Start 08/14/20 at 17:30 Haloperidol Lactate (Haldol Inj) 5 mg PRN Q4HRS PRN IVP Hallucinatns,Confusn,Delirium Last administered on 08/15/20at 09:07; Start 08/14/20 at 17:30 Diphenhydramine HCl (Benadryl) 25 mg PRN Q15MIN PRN IVP EPS symptoms 2'Haldol admin Last administered on 08/15/20at 09:07; Start 08/14/20 at 17:30 Clonidine HCl (Catapres) 0.1 mg PRN Q1HR PRN PO SBP > 180 or DBP > 100, MRX3; Start 08/14/20 at 17:30 Lorazepam (Ativan Inj) 2 mg PRN Q15MIN PRN IV SEE COMMENTS; Start 08/14/20 at 17:30 Lorazepam (Ativan Inj) 4 mg PRN Q15MIN PRN IV SEE COMMENTS; Start 08/14/20 at 17:30 Ondansetron HCl (Zofran) 4 mg PRN Q6HRS PRN IVP NAUSEA/VOMITING; Start 08/14/20 at 17:30 Al Hydroxide/Mg Hydroxide (Mylanta Plus Xs) 30 ml PRN Q3HRS PRN PO HEARTBURN / GAS; Start 08/14/20 at 17:30 Calcium Carbonate/ Glycine (Tums) 500 mg PRN Q3HRS PRN PO HEARTBURN / GAS; Start 08/14/20 at 17:30 Famotidine (Pepcid Vial) 20 mg BID IVP Last administered on 08/15/20at 09:45; Start 08/14/20 at 21:00 Heparin Sodium (Porcine) (Heparin Sodium) 5,000 unit Q8HRS SQ Last administered on 08/15/20at 06:04; Start 08/14/20 at 22:00 Sodium Chloride (Normal Saline Flush) 3 ml QSHIFT PRN IV AFTER MEDS AND BLOOD DRAWS; Start 08/14/20 at 17:30 Sodium Chloride 1,000 ml @ 100 mls/hr Q10H IV ; Start 08/14/20 at 17:30; Stop 08/14/20 at 17:32; Status DC Lactulose (Lactulose) 20 gm PRN Q12HR PRN PO CONSTIPATION; Start 08/14/20 at 17:30 Bisacodyl (Dulcolax Supp) 10 mg PRN DAILY PRN DC CONSTIPATION; Start 08/14/20 at 17:30 Acetaminophen/ Hydrocodone Bitart (Lortab 5/325) 1 tab PRN Q6HRS PRN PO PAIN Last administered on 08/14/20at 19:48; Start 08/14/20 at 19:45 Labetalol HCl (Normodyne Iv Push) 10 mg PRN Q4HRS PRN IVP HYPERTENSION Last administered on 08/14/20at 19:49; Start 08/14/20 at 19:45 Dexmedetomidine HCl 400 mcg/ Sodium Chloride 100 ml @ 4.39 mls/hr CONT PRN IV PER PROTOCOL Last administered on 08/15/20at 06:30; Start 08/14/20 at 23:15 Atropine Sulfate (ATROPINE 0.5mg SYRINGE) 0.5 mg PRN Q5MIN PRN IV SEE COMMENTS; Start 08/14/20 at 23:15 Active Scripts Active Bactrim Ds Tablet (Sulfamethoxazole/Trimethoprim) 1 Each Tablet 1 Tab PO BID 10 Days Methocarbamol 750 Mg Tablet 1,500 Mg PO PRN Q8HRS PRN 10 Days [Folic Acid] 1 MG Tablet 1 Mg PO DAILY 30 Days Vitamin B-1 (Thiamine Mononitrate) 100 Mg Tablet 100 Mg PO DAILY 30 Days Ativan (Lorazepam) 2 Mg Tablet 2 Mg PO TID PRN 3 Days Gabapentin (Gabapentin) 300 Mg Capsule 300 Mg PO TID 90 Days Catapres (Clonidine Hcl) 0.1 Mg Tablet 0.1 Mg PO Q8HRS 14 Days Reported No Known Medications Prior To Admisstion (Info) Each 1 Each MC 1X Allergies Allergies: Coded Allergies: No Known Drug Allergies (Unverified , 03/20/19) ROS Review of System Unable to obtain Physical Exam Physical Examination General: Well-developed, well-nourished white male in no acute distress HEENT: Normocephalic. Mild left forehead contusion. Tympanic membranes clear.Temporal arteriespulsatile and nontender.Fundoscopic exam unremarkable Neck: Supple without bruit, no meningismus Musculoskeletal: Stability:see neurologic. Gait exam:see neurologic. Tone:see neurologic.Strength:see neurologic. Neurological: Mental Status:Sedated, snoring. Cranial Nerves:Pupils equal and reactive to light, extraocular movements areintact, There is no facial asymmetry. Vestibulo-ocular reflex is intact. All other cranial related problems are negative except as mentioned before.Reflexes:1+ and symmetric with flexor plantar responses. Motor:Withdraws slightly to pain. Coordination and gait:Not cooperative. Sensory:Not cooperative. Vitals VITALS Vital Signs Date Time Temp Pulse Resp B/P (MAP) Pulse Ox O2 Delivery O2 Flow Rate FiO2 08/15/20 12:00 Room Air 08/15/20 12:00 97.5 70 16 119/70 (86) 95 97.5 08/15/20 05:55 2.0 Labs Labs Laboratory Tests Test 08/14/20 15:02 08/14/20 15:22 08/14/20 16:42 08/15/20 05:30 Glucose (Fingerstick) 176 mg/dL (70-99) White Blood Count 5.9 x10^3/uL (4.0-11.0) Red Blood Count 5.07 x10^6/uL (4.30-5.70) Hemoglobin 13.4 g/dL (13.0-17.5) Hematocrit 41.8 % (39.0-53.0) Mean Corpuscular Volume 83 fL (79-100) Mean Corpuscular Hemoglobin 27 pg (25-35) Mean Corpuscular Hemoglobin Concent 32 g/dL (31-37) Red Cell Distribution Width 23.6 % (11.5-14.5) Platelet Count 135 x10^3/uL (140-400) Neutrophils (%) (Auto) 71 % (31-73) Lymphocytes (%) (Auto) 13 % (24-48) Monocytes (%) (Auto) 14 % (0-9) Eosinophils (%) (Auto) 0 % (0-3) Basophils (%) (Auto) 2 % (0-3) Neutrophils # (Auto) 4.2 x10^3/uL (1.8-7.7) Lymphocytes # (Auto) 0.8 x10^3/uL (1.0-4.8) Monocytes # (Auto) 0.8 x10^3/uL (0.0-1.1) Eosinophils # (Auto) 0.0 x10^3/uL (0.0-0.7) Basophils # (Auto) 0.1 x10^3/uL (0.0-0.2) Platelet Estimate Decreased (ADEQUATE) Large Platelets Present Polychromasia Present Poikilocytosis Mod Anisocytosis Mod Macrocytosis Slight Spherocytes Few Tear Drop Cells Few Ovalocytes Mod Crenated Cell Present Schistocytes Occ Sodium Level 138 mmol/L (136-145) 140 mmol/L (136-145) Potassium Level 3.5 mmol/L (3.5-5.1) 4.1 mmol/L (3.5-5.1) Chloride Level 100 mmol/L (98-107) 110 mmol/L (98-107) Carbon Dioxide Level 13 mmol/L (21-32) 18 mmol/L (21-32) Anion Gap 25 (6-14) 12 (6-14) Blood Urea Nitrogen 8 mg/dL (8-26) 6 mg/dL (8-26) Creatinine 1.4 mg/dL (0.7-1.3) 0.8 mg/dL (0.7-1.3) Estimated GFR (Cockcroft-Gault) 52.2 99.6 BUN/Creatinine Ratio 6 (6-20) 8 (6-20) Glucose Level 183 mg/dL (70-99) 100 mg/dL (70-99) Calcium Level 8.9 mg/dL (8.5-10.1) 7.9 mg/dL (8.5-10.1) Phosphorus Level 3.3 mg/dL (2.6-4.7) Magnesium Level 2.3 mg/dL (1.8-2.4) Total Bilirubin 1.0 mg/dL (0.2-1.0) 1.3 mg/dL (0.2-1.0) Aspartate Amino Transf (AST/SGOT) 63 U/L (15-37) 47 U/L (15-37) Alanine Aminotransferase (ALT/SGPT) 74 U/L (16-63) 52 U/L (16-63) Alkaline Phosphatase 80 U/L (46-116) 63 U/L (46-116) Creatine Kinase 158 U/L (39-308) Troponin I Quantitative < 0.017 ng/mL (0.000-0.055) Total Protein 7.1 g/dL (6.4-8.2) 5.9 g/dL (6.4-8.2) Albumin 3.6 g/dL (3.4-5.0) 2.4 g/dL (3.4-5.0) Albumin/Globulin Ratio 1.0 (1.0-1.7) 0.7 (1.0-1.7) Thyroid Stimulating Hormone (TSH) 3.435 uIU/mL (0.358-3.74) Ethyl Alcohol Level < 10 mg/dL (0-10) Urine Opiates Screen Neg (NEG) Urine Methadone Screen Neg (NEG) Urine Barbiturates Neg (NEG) Urine Phencyclidine Screen Neg (NEG) Urine Amphetamine/Methamphetamine Neg (NEG) Urine Benzodiazepines Screen Neg (NEG) Urine Cocaine Screen Neg (NEG) Urine Cannabinoids Screen Neg (NEG) Urine Ethyl Alcohol Neg (NEG) Prothrombin Time 14.0 SEC (11.7-14.0) Prothromb Time International Ratio 1.1 (0.8-1.1) Activated Partial Thromboplast Time 23 SEC (24-38) Test 08/15/20 07:15 White Blood Count 5.4 x10^3/uL (4.0-11.0) Red Blood Count 4.17 x10^6/uL (4.30-5.70) Hemoglobin 11.0 g/dL (13.0-17.5) Hematocrit 34.8 % (39.0-53.0) Mean Corpuscular Volume 84 fL (79-100) Mean Corpuscular Hemoglobin 27 pg (25-35) Mean Corpuscular Hemoglobin Concent 32 g/dL (31-37) Red Cell Distribution Width 22.8 % (11.5-14.5) Platelet Count 105 x10^3/uL (140-400) Neutrophils (%) (Auto) 64 % (31-73) Lymphocytes (%) (Auto) 19 % (24-48) Monocytes (%) (Auto) 17 % (0-9) Eosinophils (%) (Auto) 0 % (0-3) Basophils (%) (Auto) 1 % (0-3) Neutrophils # (Auto) 3.4 x10^3/uL (1.8-7.7) Lymphocytes # (Auto) 1.0 x10^3/uL (1.0-4.8) Monocytes # (Auto) 0.9 x10^3/uL (0.0-1.1) Eosinophils # (Auto) 0.0 x10^3/uL (0.0-0.7) Basophils # (Auto) 0.0 x10^3/uL (0.0-0.2) Laboratory Tests Test 08/14/20 15:02 08/14/20 15:22 08/14/20 16:42 08/15/20 05:30 Glucose (Fingerstick) 176 mg/dL (70-99) White Blood Count 5.9 x10^3/uL (4.0-11.0) Red Blood Count 5.07 x10^6/uL (4.30-5.70) Hemoglobin 13.4 g/dL (13.0-17.5) Hematocrit 41.8 % (39.0-53.0) Mean Corpuscular Volume 83 fL (79-100) Mean Corpuscular Hemoglobin 27 pg (25-35) Mean Corpuscular Hemoglobin Concent 32 g/dL (31-37) Red Cell Distribution Width 23.6 % (11.5-14.5) Platelet Count 135 x10^3/uL (140-400) Neutrophils (%) (Auto) 71 % (31-73) Lymphocytes (%) (Auto) 13 % (24-48) Monocytes (%) (Auto) 14 % (0-9) Eosinophils (%) (Auto) 0 % (0-3) Basophils (%) (Auto) 2 % (0-3) Neutrophils # (Auto) 4.2 x10^3/uL (1.8-7.7) Lymphocytes # (Auto) 0.8 x10^3/uL (1.0-4.8) Monocytes # (Auto) 0.8 x10^3/uL (0.0-1.1) Eosinophils # (Auto) 0.0 x10^3/uL (0.0-0.7) Basophils # (Auto) 0.1 x10^3/uL (0.0-0.2) Platelet Estimate Decreased (ADEQUATE) Large Platelets Present Polychromasia Present Poikilocytosis Mod Anisocytosis Mod Macrocytosis Slight Spherocytes Few Tear Drop Cells Few Ovalocytes Mod Crenated Cell Present Schistocytes Occ Sodium Level 138 mmol/L (136-145) 140 mmol/L (136-145) Potassium Level 3.5 mmol/L (3.5-5.1) 4.1 mmol/L (3.5-5.1) Chloride Level 100 mmol/L (98-107) 110 mmol/L (98-107) Carbon Dioxide Level 13 mmol/L (21-32) 18 mmol/L (21-32) Anion Gap 25 (6-14) 12 (6-14) Blood Urea Nitrogen 8 mg/dL (8-26) 6 mg/dL (8-26) Creatinine 1.4 mg/dL (0.7-1.3) 0.8 mg/dL (0.7-1.3) Estimated GFR (Cockcroft-Gault) 52.2 99.6 BUN/Creatinine Ratio 6 (6-20) 8 (6-20) Glucose Level 183 mg/dL (70-99) 100 mg/dL (70-99) Calcium Level 8.9 mg/dL (8.5-10.1) 7.9 mg/dL (8.5-10.1) Phosphorus Level 3.3 mg/dL (2.6-4.7) Magnesium Level 2.3 mg/dL (1.8-2.4) Total Bilirubin 1.0 mg/dL (0.2-1.0) 1.3 mg/dL (0.2-1.0) Aspartate Amino Transf (AST/SGOT) 63 U/L (15-37) 47 U/L (15-37) Alanine Aminotransferase (ALT/SGPT) 74 U/L (16-63) 52 U/L (16-63) Alkaline Phosphatase 80 U/L (46-116) 63 U/L (46-116) Creatine Kinase 158 U/L (39-308) Troponin I Quantitative < 0.017 ng/mL (0.000-0.055) Total Protein 7.1 g/dL (6.4-8.2) 5.9 g/dL (6.4-8.2) Albumin 3.6 g/dL (3.4-5.0) 2.4 g/dL (3.4-5.0) Albumin/Globulin Ratio 1.0 (1.0-1.7) 0.7 (1.0-1.7) Thyroid Stimulating Hormone (TSH) 3.435 uIU/mL (0.358-3.74) Ethyl Alcohol Level < 10 mg/dL (0-10) Urine Opiates Screen Neg (NEG) Urine Methadone Screen Neg (NEG) Urine Barbiturates Neg (NEG) Urine Phencyclidine Screen Neg (NEG) Urine Amphetamine/Methamphetamine Neg (NEG) Urine Benzodiazepines Screen Neg (NEG) Urine Cocaine Screen Neg (NEG) Urine Cannabinoids Screen Neg (NEG) Urine Ethyl Alcohol Neg (NEG) Prothrombin Time 14.0 SEC (11.7-14.0) Prothromb Time International Ratio 1.1 (0.8-1.1) Activated Partial Thromboplast Time 23 SEC (24-38) Test 08/15/20 07:15 White Blood Count 5.4 x10^3/uL (4.0-11.0) Red Blood Count 4.17 x10^6/uL (4.30-5.70) Hemoglobin 11.0 g/dL (13.0-17.5) Hematocrit 34.8 % (39.0-53.0) Mean Corpuscular Volume 84 fL (79-100) Mean Corpuscular Hemoglobin 27 pg (25-35) Mean Corpuscular Hemoglobin Concent 32 g/dL (31-37) Red Cell Distribution Width 22.8 % (11.5-14.5) Platelet Count 105 x10^3/uL (140-400) Neutrophils (%) (Auto) 64 % (31-73) Lymphocytes (%) (Auto) 19 % (24-48) Monocytes (%) (Auto) 17 % (0-9) Eosinophils (%) (Auto) 0 % (0-3) Basophils (%) (Auto) 1 % (0-3) Neutrophils # (Auto) 3.4 x10^3/uL (1.8-7.7) Lymphocytes # (Auto) 1.0 x10^3/uL (1.0-4.8) Monocytes # (Auto) 0.9 x10^3/uL (0.0-1.1) Eosinophils # (Auto) 0.0 x10^3/uL (0.0-0.7) Basophils # (Auto) 0.0 x10^3/uL (0.0-0.2) Images Images Head CT without contrast; maxillofacial bone CT without contrast; cervical spine CT without contrast. HISTORY: Seizure. Pain. Trauma. TECHNIQUE: Computed tomographic images of the head, maxillofacial bones and cervical spine were obtained without contrast. *One or more of the following individualized dose reduction techniques were utilized for this examination: 1. Automated exposure control. 2. Adjustment of the mA and/or kV according to patient size. 3. Use of iterative reconstruction technique. COMPARISON: 05/24/2020. FINDINGS: Head: There is curvilinear hyperdensity within the right frontal extra-axial sp zachary due to a prominent cortical vessel. There is no convincing acute or subacute intracranial hemorrhage. There is cerebral atrophy, greater than expected for patient age. The mastoid air cells are clear. No calvarial lesion is seen. Maxillofacial bones: There is stable minimal angulation of the left nasal bone likely due to remote trauma or developmental in etiology. No acute maxillary facial bone fracture is seen. There is rightward nasal septal deviation. There is minimal maxillary sinus mucosal thickening. The ostiomeatal units are patent. There is stable chronic deformity of the bilateral mandibular condyles. Cervical spine: There is minimal multilevel listhesis. There is degenerative endplate remodeling and facet arthropathy at multiple levels. No displaced fracture is seen. There is disc space narrowing predominantly at C6-C7. There is no suspicious lytic or sclerotic osseous lesion. The combination of degenerative changes results in mild right foraminal stenosis at C2-C3, moderate right and mild left foraminal stenosis at C3-C4, moderate right and [id number] left foraminal stenosis at C4-C5, moderate right foraminal stenosis at C5-C6 and moderate right and mild left foraminal stenosis at C6-C7. IMPRESSION: 1. No acute intracranial finding or evidence of acute cervical spine trauma or maxillofacial bone trauma. 2. Cerebral atrophy. This is greater than expected for patient age. 3. Multilevel change involving the cervical spine, resulting in foraminal stenosis at the aforementioned levels. 4. Chronic deformity of the mandibular condyles. Assessment/Plan Assessment/Plan Impression: Alcohol-related seizures Recommendations: Agree with current management including CIWA protocol. No need for additional neurological studies such as electroencephalogram or repeat MRI, which would not change management director. 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 Thank you for letting me help with the patient's care. CARMEN TAYLOR MD Aug 15, 2020 13:19
--- NOTE | 2020-08-15 15:29 | NUR ---
SS following for discharge planning. SS reviewed pt chart and discussed with pt RN. Pt is from home with spouse and is currently on room air. ETOH. PAT team referral made for assessment and recommendations. Pt on Precedex and CIWA protocol. Per pt's spouse, pt is not allowed to return to home. Property management of apartment complex will not allow pt back on the premises due to disorderly behaviors. Pt is homeless as of now. Pt too unstable to be seen by PAT team today. SS will continue to follow for discharge planning.
[2020-08-15] MEDS: LABETALOL 20 MG/4 ML DISP.SYRIN. IVP PRN (23:24)
[2020-08-16] VITALS (15 sets, daily range): BP systolic 116–162; BP diastolic 50–109
[2020-08-16] MEDS: diphenhydrAMINE 50 MG/ML VIAL IVP PRN (00:03)
[2020-08-16] MEDS: DEXMEDETOMIDINE 400 MCG in IV NORMAL SALINE 100ML 96 ML IV PRN (01:15)
[2020-08-16 05:28] LABS: ALBUMIN 2.9 g/dL (3.4-5.0); ALBUMIN/GLOBULIN RATIO 0.9 (1.0-1.7); CALCIUM 8.2 mg/dL (8.5-10.1); CREATININE 0.8 mg/dL (0.7-1.3); GFR 99.6; POTASSIUM 3.7 mmol/L (3.5-5.1); TOTAL BILIRUBIN 0.8 mg/dL (0.2-1.0)
[2020-08-16] MEDS: HEPARIN for SUB-Q USE 5,000 UNIT/ML VIAL. SQ SCH ×3 (05:55→21:05)
[2020-08-16] MEDS ORDERED: MULTIVIT INFUSN,ADULT 4,VIT K 10 ML, THIAMINE INJ 100 MG, FOLIC ACID INJ 1 MG in IV NOR... IV SCH (08:00)
--- NOTE | 2020-08-16 08:11 | PDOC ---
[employer] PROGRESS NOTE Date of Service DOS: DATE: 08/16/20 TIME: 08:11 Chief Complaint Chief Complaint Acute seizure with alcohol withdrawl FALL WITH HEAD CONTUSION, POA Alcoholism, Hypertension, Depression Delirium tremens Dilated cardiomyopathy Cerebral atrophy. This is greater than expected for patient age // .curvilinear hyperdensity within the right frontal extra-axial space due to a prominent cor tical vessel. There is no convincing acute or subacute intracranial hemorrhage. Multilevel change involving the cervical spine, resulting in foraminal stenosis Metabolic encephalopathy , acute ?H/o GIST tumor Right shoulder pain: We will get shoulder x-ray there may be mild anterior dislocation on examination. History of Present Illness History of Present Illness Mr Lozada is a 55-year-old male past medical history of alcohol abuse with prior seizures (been to rehab at [facility] and [facility] previously, typically drinks a liter of vodka daily), who presented to the ER after reportedly having an alcohol withdrawal seizure today Seizure was reportedly witnessed to ER for treatment of withdrawal symptoms. hx admitted multiple times for alcohol withdrawal and seizures. States he drinks around 1 pint of vodka daily his last drink was yesterday. After discussion with patient in the ER wanting treatment for his alcoholism is willing to go through a treatment program if available. He admits to alcohol relapse with residual back pain, drinking 8 beers plus a day recent images // X-ray obtained in the ER showed redemonstrated compression and vertical fractures of the L2 vertebral body without retropulsion. CTA chest was obtained due to tachycardia. CTA was negative for PE but did note ectasia of the ascending thoracic aorta measuring 4.4 cm and a linear filling defect along the ascending arch extending to the aortic root which could represent respiratory motion versus a dissection flap. hx Delirium tremens // severe Alcohol abuse acute // Alcohol withdrawal seizure //Dilated cardiomyopathy 08/15: Afebrile. Albumin 2.4. Very agitated despite 4 mg of IV Ativan, on Precedex infusion. No chest pain or shortness of breath. Afebrile overnight. Labs stable. No shortness of breath or chest pain. He is working with PT and OT very weeks. Pham catheter still in place. Good appetite. He is little more alert. He is complaining of right shoulder pain which was not initially evaluated due to his delirium. Vitals/I&O Vitals/I&O: Vital Signs Date Time Temp Pulse Resp B/P (MAP) Pulse Ox O2 Delivery O2 Flow Rate FiO2 08/16/20 08:00 Room Air 08/16/20 07:00 81 24 162/92 (115) 94 08/16/20 04:00 98.8 98.8 I & O 08/15/20 08/15/20 08/16/20 15:00 23:00 07:00 Intake Total 2181 ml 130 ml Output Total 1025 ml 1275 ml 1275 ml Balance -1025 ml 906 ml -1145 ml Physical Exam General: Alert, Oriented X3, Cooperative, mild distress Lungs: Clear Abdomen: Normal bowel sounds, Soft Extremities: No cyanosis Labs Labs: Laboratory Tests Test 08/16/20 04:00 Sodium Level 145 mmol/L (136-145) Potassium Level 3.7 mmol/L (3.5-5.1) Chloride Level 111 mmol/L (98-107) Carbon Dioxide Level 20 mmol/L (21-32) Anion Gap 14 (6-14) Blood Urea Nitrogen 6 mg/dL (8-26) Creatinine 0.8 mg/dL (0.7-1.3) Estimated GFR (Cockcroft-Gault) 99.6 BUN/Creatinine Ratio 8 (6-20) Glucose Level 91 mg/dL (70-99) Calcium Level 8.2 mg/dL (8.5-10.1) Magnesium Level 2.0 mg/dL (1.8-2.4) Total Bilirubin 0.8 mg/dL (0.2-1.0) Aspartate Amino Transf (AST/SGOT) 40 U/L (15-37) Alanine Aminotransferase (ALT/SGPT) 50 U/L (16-63) Alkaline Phosphatase 66 U/L (46-116) Total Protein 6.0 g/dL (6.4-8.2) Albumin 2.9 g/dL (3.4-5.0) Albumin/Globulin Ratio 0.9 (1.0-1.7) Assessment and Plan Assessmemt and Plan Problems Medical Problems: (1) Facial contusion Status: Acute Comment Review of Relevant I have reviewed the following items lana (where applicable) has been applied. Justifications for Admission Other Justification Alcohol withdrawal, seizure DYAN SANDOVAL MD Aug 16, 2020 08:11
[2020-08-16] MEDS: FAMOTIDINE 20 MG/2 ML VIAL IVP SCH ×2 (08:43→21:01)
[2020-08-16] MEDS ORDERED: MULTIVIT INFUSN,ADULT 4,VIT K 10 ML, THIAMINE INJ 100 MG, FOLIC ACID INJ 1 MG in IV NOR... IV ONE (09:00)
[2020-08-16] MEDS: GABAPENTIN 300 MG CAPSULE. PO SCH ×3 (09:10→21:07)
--- NOTE | 2020-08-16 09:16 | PDOC ---
PROGRESS NOTES Date of Service DATE: 08/16/20 TIME: 09:14 Assessment Problems Medical Problems: (1) Facial contusion Status: Acute Alcohol-related seizures Plan Agree with current management including CIWA protocol. 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 Okay for discharge Followup with me PRN Objective Vital Signs Date Time Temp Pulse Resp B/P (MAP) Pulse Ox O2 Delivery O2 Flow Rate FiO2 08/16/20 09:00 139 27 146/89 (108) 97 Room Air 08/16/20 08:00 98.8 98.8 Intake and Output 08/16/20 07:00 Intake Total 2311 ml Output Total 3575 ml Balance -1264 ml Intake IV Total 2311 ml Output Urine Total 3575 ml PHYSICAL EXAM CIWA score of 2 for minimal tremor Alert. Oriented to time, place and person. PERRL. EOMI. CN: no focal findings. Muscle tone: normal. Muscle strength: 5/5 DTR: 1+ Plantar reflex: Flexor Gait: not examined in bed. Sensory exam: no abnormal findings. No cerebellar signs elicited. Review of Relevant I have reviewed the following items lana (where applicable) has been applied. Labs Laboratory Tests Test 08/14/20 15:02 08/14/20 15:22 08/14/20 16:42 08/15/20 05:30 Glucose (Fingerstick) 176 mg/dL (70-99) White Blood Count 5.9 x10^3/uL (4.0-11.0) Red Blood Count 5.07 x10^6/uL (4.30-5.70) Hemoglobin 13.4 g/dL (13.0-17.5) Hematocrit 41.8 % (39.0-53.0) Mean Corpuscular Volume 83 fL (79-100) Mean Corpuscular Hemoglobin 27 pg (25-35) Mean Corpuscular Hemoglobin Concent 32 g/dL (31-37) Red Cell Distribution Width 23.6 % (11.5-14.5) Platelet Count 135 x10^3/uL (140-400) Neutrophils (%) (Auto) 71 % (31-73) Lymphocytes (%) (Auto) 13 % (24-48) Monocytes (%) (Auto) 14 % (0-9) Eosinophils (%) (Auto) 0 % (0-3) Basophils (%) (Auto) 2 % (0-3) Neutrophils # (Auto) 4.2 x10^3/uL (1.8-7.7) Lymphocytes # (Auto) 0.8 x10^3/uL (1.0-4.8) Monocytes # (Auto) 0.8 x10^3/uL (0.0-1.1) Eosinophils # (Auto) 0.0 x10^3/uL (0.0-0.7) Basophils # (Auto) 0.1 x10^3/uL (0.0-0.2) Platelet Estimate Decreased (ADEQUATE) Large Platelets Present Polychromasia Present Poikilocytosis Mod Anisocytosis Mod Macrocytosis Slight Spherocytes Few Tear Drop Cells Few Ovalocytes Mod Crenated Cell Present Schistocytes Occ Sodium Level 138 mmol/L (136-145) 140 mmol/L (136-145) Potassium Level 3.5 mmol/L (3.5-5.1) 4.1 mmol/L (3.5-5.1) Chloride Level 100 mmol/L (98-107) 110 mmol/L (98-107) Carbon Dioxide Level 13 mmol/L (21-32) 18 mmol/L (21-32) Anion Gap 25 (6-14) 12 (6-14) Blood Urea Nitrogen 8 mg/dL (8-26) 6 mg/dL (8-26) Creatinine 1.4 mg/dL (0.7-1.3) 0.8 mg/dL (0.7-1.3) Estimated GFR (Cockcroft-Gault) 52.2 99.6 BUN/Creatinine Ratio 6 (6-20) 8 (6-20) Glucose Level 183 mg/dL (70-99) 100 mg/dL (70-99) Calcium Level 8.9 mg/dL (8.5-10.1) 7.9 mg/dL (8.5-10.1) Phosphorus Level 3.3 mg/dL (2.6-4.7) Magnesium Level 2.3 mg/dL (1.8-2.4) Total Bilirubin 1.0 mg/dL (0.2-1.0) 1.3 mg/dL (0.2-1.0) Aspartate Amino Transf (AST/SGOT) 63 U/L (15-37) 47 U/L (15-37) Alanine Aminotransferase (ALT/SGPT) 74 U/L (16-63) 52 U/L (16-63) Alkaline Phosphatase 80 U/L (46-116) 63 U/L (46-116) Creatine Kinase 158 U/L (39-308) Troponin I Quantitative < 0.017 ng/mL (0.000-0.055) Total Protein 7.1 g/dL (6.4-8.2) 5.9 g/dL (6.4-8.2) Albumin 3.6 g/dL (3.4-5.0) 2.4 g/dL (3.4-5.0) Albumin/Globulin Ratio 1.0 (1.0-1.7) 0.7 (1.0-1.7) Thyroid Stimulating Hormone (TSH) 3.435 uIU/mL (0.358-3.74) Ethyl Alcohol Level < 10 mg/dL (0-10) Urine Opiates Screen Neg (NEG) Urine Methadone Screen Neg (NEG) Urine Barbiturates Neg (NEG) Urine Phencyclidine Screen Neg (NEG) Urine Amphetamine/Methamphetamine Neg (NEG) Urine Benzodiazepines Screen Neg (NEG) Urine Cocaine Screen Neg (NEG) Urine Cannabinoids Screen Neg (NEG) Urine Ethyl Alcohol Neg (NEG) Prothrombin Time 14.0 SEC (11.7-14.0) Prothromb Time International Ratio 1.1 (0.8-1.1) Activated Partial Thromboplast Time 23 SEC (24-38) Test 08/15/20 07:15 08/16/20 04:00 White Blood Count 5.4 x10^3/uL (4.0-11.0) Red Blood Count 4.17 x10^6/uL (4.30-5.70) Hemoglobin 11.0 g/dL (13.0-17.5) Hematocrit 34.8 % (39.0-53.0) Mean Corpuscular Volume 84 fL (79-100) Mean Corpuscular Hemoglobin 27 pg (25-35) Mean Corpuscular Hemoglobin Concent 32 g/dL (31-37) Red Cell Distribution Width 22.8 % (11.5-14.5) Platelet Count 105 x10^3/uL (140-400) Neutrophils (%) (Auto) 64 % (31-73) Lymphocytes (%) (Auto) 19 % (24-48) Monocytes (%) (Auto) 17 % (0-9) Eosinophils (%) (Auto) 0 % (0-3) Basophils (%) (Auto) 1 % (0-3) Neutrophils # (Auto) 3.4 x10^3/uL (1.8-7.7) Lymphocytes # (Auto) 1.0 x10^3/uL (1.0-4.8) Monocytes # (Auto) 0.9 x10^3/uL (0.0-1.1) Eosinophils # (Auto) 0.0 x10^3/uL (0.0-0.7) Basophils # (Auto) 0.0 x10^3/uL (0.0-0.2) Sodium Level 145 mmol/L (136-145) Potassium Level 3.7 mmol/L (3.5-5.1) Chloride Level 111 mmol/L (98-107) Carbon Dioxide Level 20 mmol/L (21-32) Anion Gap 14 (6-14) Blood Urea Nitrogen 6 mg/dL (8-26) Creatinine 0.8 mg/dL (0.7-1.3) Estimated GFR (Cockcroft-Gault) 99.6 BUN/Creatinine Ratio 8 (6-20) Glucose Level 91 mg/dL (70-99) Calcium Level 8.2 mg/dL (8.5-10.1) Magnesium Level 2.0 mg/dL (1.8-2.4) Total Bilirubin 0.8 mg/dL (0.2-1.0) Aspartate Amino Transf (AST/SGOT) 40 U/L (15-37) Alanine Aminotransferase (ALT/SGPT) 50 U/L (16-63) Alkaline Phosphatase 66 U/L (46-116) Total Protein 6.0 g/dL (6.4-8.2) Albumin 2.9 g/dL (3.4-5.0) Albumin/Globulin Ratio 0.9 (1.0-1.7) Laboratory Tests Test 08/16/20 04:00 Sodium Level 145 mmol/L (136-145) Potassium Level 3.7 mmol/L (3.5-5.1) Chloride Level 111 mmol/L (98-107) Carbon Dioxide Level 20 mmol/L (21-32) Anion Gap 14 (6-14) Blood Urea Nitrogen 6 mg/dL (8-26) Creatinine 0.8 mg/dL (0.7-1.3) Estimated GFR (Cockcroft-Gault) 99.6 BUN/Creatinine Ratio 8 (6-20) Glucose Level 91 mg/dL (70-99) Calcium Level 8.2 mg/dL (8.5-10.1) Magnesium Level 2.0 mg/dL (1.8-2.4) Total Bilirubin 0.8 mg/dL (0.2-1.0) Aspartate Amino Transf (AST/SGOT) 40 U/L (15-37) Alanine Aminotransferase (ALT/SGPT) 50 U/L (16-63) Alkaline Phosphatase 66 U/L (46-116) Total Protein 6.0 g/dL (6.4-8.2) Albumin 2.9 g/dL (3.4-5.0) Albumin/Globulin Ratio 0.9 (1.0-1.7) Microbiology 08/14/20 Blood Culture - Preliminary, Resulted NO GROWTH AFTER 1 DAY Medications Current Medications Sodium Chloride 1,000 ml @ 1,000 mls/hr 1X ONCE IV Last administered on 08/14/20at 15:00; Start 08/14/20 at 15:00; Stop 08/14/20 at 15:59; Status DC Lorazepam (Ativan Inj) 2 mg 1X ONCE IVP Last administered on 08/14/20at 16:33; Start 08/14/20 at 16:00; Stop 08/14/20 at 16:01; Status DC Multivitamins 10 ml/Thiamine HCl 100 mg/Folic Acid 1 mg/Sodium Chloride 1,011.2 ml @ 1,000.088 mls/hr 1X ONCE IV Last administered on 08/14/20at 16:35; Start 08/14/20 at 16:00; Stop 08/14/20 at 17:00; Status DC Ondansetron HCl (Zofran) 4 mg PRN Q8HRS PRN IV NAUSEA/VOMITING Last administered on 08/14/20at 16:31; Start 08/14/20 at 16:30; Stop 08/15/20 at 14:16; Status DC Sodium Chloride 1,000 ml @ 100 mls/hr Q10H IV Last administered on 08/15/20at 11:44; Start 08/14/20 at 16:30; Stop 08/15/20 at 16:29; Status DC Thiamine Mononitrate (Vitamin B-1) 100 mg DAILY PO ; Start 08/15/20 at 09:00; Stop 08/16/20 at 07:12; Status DC Folic Acid (Folic Acid) 1 mg DAILY PO ; Start 08/15/20 at 09:00; Stop 08/16/20 at 07:12; Status DC Multivitamins (Thera M Plus) 1 tab DAILY PO ; Start 08/15/20 at 09:00; Stop 08/16/20 at 07:12; Status DC Folic Acid (Folic Acid) 1 mg DAILY PO ; Start 08/19/20 at 09:00; Status Cancel Thiamine Mononitrate (Vitamin B-1) 100 mg DAILY PO ; Start 08/19/20 at 09:00; Status Cancel Lorazepam (Ativan) 4 mg PRN Q1HR PRN PO For CIWA 8-14; Start 08/14/20 at 17:30 Lorazepam (Ativan) 8 mg PRN Q1HR PRN PO For CIWA 15 or greater; Start 08/14/20 at 17:30 Lorazepam (Ativan Inj) 2 mg PRN Q1HR PRN IV For CIWA 8-14 Last administered on 08/14/20at 21:22; Start 08/14/20 at 17:30 Lorazepam (Ativan Inj) 4 mg PRN Q1HR PRN IV For CIWA 15 or greater Last administered on 08/15/20at 21:27; Start 08/14/20 at 17:30 Haloperidol Lactate (Haldol Inj) 5 mg PRN Q4HRS PRN IVP Hallucinatns,Confusn,Delirium Last administered on 08/15/20at 23:23; Start 08/14/20 at 17:30 Diphenhydramine HCl (Benadryl) 25 mg PRN Q15MIN PRN IVP EPS symptoms 2'Haldol admin Last administered on 08/16/20at 00:03; Start 08/14/20 at 17:30 Clonidine HCl (Catapres) 0.1 mg PRN Q1HR PRN PO SBP > 180 or DBP > 100, MRX3; Start 08/14/20 at 17:30 Lorazepam (Ativan Inj) 2 mg PRN Q15MIN PRN IV SEE COMMENTS; Start 08/14/20 at 17:30 Lorazepam (Ativan Inj) 4 mg PRN Q15MIN PRN IV SEE COMMENTS Last administered on 08/15/20at 16:54; Start 08/14/20 at 17:30 Ondansetron HCl (Zofran) 4 mg PRN Q6HRS PRN IVP NAUSEA/VOMITING; Start 08/14/20 at 17:30 Al Hydroxide/Mg Hydroxide (Mylanta Plus Xs) 30 ml PRN Q3HRS PRN PO HEARTBURN / GAS, 2ND CHOICE; Start 08/14/20 at 17:30 Calcium Carbonate/ Glycine (Tums) 500 mg PRN Q3HRS PRN PO HEARTBURN / GAS; Start 08/14/20 at 17:30 Famotidine (Pepcid Vial) 20 mg BID IVP Last administered on 08/16/20at 08:43; Start 08/14/20 at 21:00 Heparin Sodium (Porcine) (Heparin Sodium) 5,000 unit Q8HRS SQ Last administered on 08/16/20at 05:55; Start 08/14/20 at 22:00 Sodium Chloride (Normal Saline Flush) 3 ml QSHIFT PRN IV AFTER MEDS AND BLOOD DRAWS; Start 08/14/20 at 17:30 Sodium Chloride 1,000 ml @ 100 mls/hr Q10H IV ; Start 08/14/20 at 17:30; Stop 08/14/20 at 17:32; Status DC Lactulose (Lactulose) 20 gm PRN Q12HR PRN PO CONSTIPATION; Start 08/14/20 at 17:30 Bisacodyl (Dulcolax Supp) 10 mg PRN DAILY PRN VA CONSTIPATION; Start 08/14/20 at 17:30 Acetaminophen/ Hydrocodone Bitart (Lortab 5/325) 1 tab PRN Q6HRS PRN PO PAIN Last administered on 08/14/20at 19:48; Start 08/14/20 at 19:45 Labetalol HCl (Normodyne Iv Push) 10 mg PRN Q4HRS PRN IVP HYPERTENSION Last administered on 08/15/20at 23:24; Start 08/14/20 at 19:45 Dexmedetomidine HCl 400 mcg/ Sodium Chloride 100 ml @ 4.39 mls/hr CONT PRN IV PER PROTOCOL Last administered on 08/16/20at 01:15; Start 08/14/20 at 23:15 Atropine Sulfate (ATROPINE 0.5mg SYRINGE) 0.5 mg PRN Q5MIN PRN IV SEE COMMENTS; Start 08/14/20 at 23:15 Multivitamins 10 ml/Thiamine HCl 100 mg/Folic Acid 1 mg/Sodium Chloride 1,011.2 ml @ 1,000.088 mls/hr 1X IV ; Start 08/16/20 at 08:00; Stop 08/18/20 at 07:59; Status Cancel Gabapentin (Neurontin) 300 mg TID PO Last administered on 08/16/20at 09:10; Start 08/16/20 at 09:00 Multivitamins 10 ml/Thiamine HCl 100 mg/Folic Acid 1 mg/Sodium Chloride 1,011.2 ml @ 1,000.088 mls/hr 1X ONCE IV Last administered on 08/16/20at 08:51; Start 08/16/20 at 09:00; Stop 08/16/20 at 10:00 Active Scripts Active Bactrim Ds Tablet (Sulfamethoxazole/Trimethoprim) 1 Each Tablet 1 Tab PO BID 10 Days Methocarbamol 750 Mg Tablet 1,500 Mg PO PRN Q8HRS PRN 10 Days [Folic Acid] 1 MG Tablet 1 Mg PO DAILY 30 Days Vitamin B-1 (Thiamine Mononitrate) 100 Mg Tablet 100 Mg PO DAILY 30 Days Ativan (Lorazepam) 2 Mg Tablet 2 Mg PO TID PRN 3 Days Gabapentin (Gabapentin) 300 Mg Capsule 300 Mg PO TID 90 Days Catapres (Clonidine Hcl) 0.1 Mg Tablet 0.1 Mg PO Q8HRS 14 Days Reported No Known Medications Prior To Admisstion (Info) Each 1 Each MC 1X Vitals/I & O Vital Sign - Last 24 Hours 08/15/20 08/15/20 08/15/20 08/15/20 10:00 11:00 12:00 12:00 Temp 97.5 97.5 Pulse 82 71 70 Resp 24 20 16 B/P (MAP) 114/51 (72) 114/72 (86) 119/70 (86) Pulse Ox 100 95 95 O2 Delivery Room Air Room Air Room Air Room Air 08/15/20 08/15/20 08/15/20 08/15/20 13:00 14:00 15:00 16:00 Pulse 71 85 69 Resp 20 11 20 B/P (MAP) 116/76 (89) 136/83 (100) 125/90 (102) Pulse Ox 95 93 93 O2 Delivery Room Air Room Air Room Air Room Air 08/15/20 08/15/20 08/15/20 08/15/20 16:00 17:00 19:00 20:00 Temp 97.5 98.0 97.5 98.0 Pulse 69 64 71 75 Resp 14 17 17 17 B/P (MAP) 136/93 (107) 135/86 (102) 137/90 (106) 153/106 (122) Pulse Ox 96 97 98 98 O2 Delivery Room Air Room Air Room Air Room Air 08/15/20 08/15/20 08/15/20 08/15/20 20:00 20:54 22:00 23:00 Pulse 70 72 73 Resp 17 17 17 B/P (MAP) 140/86 (104) 141/85 (103) 152/91 (111) Pulse Ox 96 95 99 O2 Delivery Room Air Room Air Room Air Room Air 08/15/20 08/16/20 08/16/20 08/16/20 23:24 00:00 00:00 01:00 Temp 98.2 98.2 Pulse 70 72 71 Resp 17 17 B/P (MAP) 152/91 128/86 (100) 150/109 (123) Pulse Ox 95 94 O2 Delivery Room Air Room Air Room Air 08/16/20 08/16/20 08/16/20 08/16/20 02:00 03:00 03:46 04:00 Temp 98.8 98.8 Pulse 77 72 76 Resp 17 17 17 B/P (MAP) 147/84 (105) 145/80 (101) 143/90 (107) Pulse Ox 99 94 95 O2 Delivery Room Air Room Air Room Air Room Air 08/16/20 08/16/20 08/16/20 08/16/20 05:00 05:56 07:00 08:00 Pulse 76 82 81 Resp 17 17 24 B/P (MAP) 139/84 (102) 141/86 (104) 162/92 (115) Pulse Ox 94 94 94 O2 Delivery Room Air Room Air Room Air Room Air 08/16/20 08/16/20 08:00 09:00 Temp 98.8 98.8 Pulse 144 139 Resp 24 27 B/P (MAP) 159/92 (114) 146/89 (108) Pulse Ox 94 97 O2 Delivery Room Air Room Air Intake and Output 08/15/20 08/15/20 08/16/20 15:00 23:00 07:00 Intake Total 2181 ml 130 ml Output Total 1025 ml 1275 ml 1275 ml Balance -1025 ml 906 ml -1145 ml Justicifation of Admission Dx: Justifications for Admission: Justification of Admission Dx: N/A CARMEN TAYLOR MD Aug 16, 2020 09:16
--- NOTE | 2020-08-16 12:26 | RAD ---
EXAM: XR SHOULDER_RIGHT 2+ VIEWS 08/16/2020 10:53 AM CLINICAL INDICATION: Right shoulder pain and limited range of motion COMPARISON: None TECHNIQUE: 3 views of the right shoulder FINDINGS: On scapular Y view there is a possible osseous fragment or bone spur superimposed over the posterior aspect of the humeral neck measuring approximately 1.7 cm. This is not well seen on the ot her views. No other evidence of fracture. No dislocation. There is bony hypertrophy of the distal cla vicle with mild widening of the acromioclavicular joint, possibly postsurgical. IMPRESSION: 1. Possible small osseous fragment seen at the posterior inferior aspect of the joint on scapular Y v iew. This could be a small fracture of the glenoid rim, intra-articular body, or possibly osteophyte. Correlate for history of trauma. Axillary view may be useful. 2. Mild widening of the acromioclavicular joint, possibly postsurgical. Correlate with history. Electronically signed by: Jennifer Avery MD (08/16/2020 12:24 PM) [id number]
[2020-08-16] MEDS: LABETALOL 20 MG/4 ML DISP.SYRIN. IVP PRN (13:11)
--- NOTE | 2020-08-16 15:01 | NUR ---
SS following up with discharge planning. SS reviewed pt chart and discussed with pt RN. Pt is currently on room air. ETOH and CIWA protocol. PAT team referral made and coming to visit with pt. Pt transferred to room 650. Jennifer BELLAMY, to follow.
--- NOTE | 2020-08-16 17:55 | NUR ---
Consulted Dr. Nazario for patient. Spoke directly
--- NOTE | 2020-08-16 20:47 | RAD ---
Right shoulder one view. HISTORY: Shoulder pain, limited range of motion A axillary view was obtained of the shoulder. There is a bony spur off the glenoid. A definite fractu re is not identified. An old injury could have this pattern. There is no dislocation. IMPRESSION: 1. Bony spur noted off the glenoid process of the scapula. Electronically signed by: Milad Osorio MD (08/16/2020 8:44 PM) [facility]
[2020-08-17 03:00] VITALS: BP 165/95
[2020-08-17] MEDS: HEPARIN for SUB-Q USE 5,000 UNIT/ML VIAL. SQ SCH ×3 (06:00→22:00)
[2020-08-17 07:00] VITALS: BP 169/105
[2020-08-17] MEDS: FAMOTIDINE 20 MG/2 ML VIAL IVP SCH (08:50)
[2020-08-17] MEDS: GABAPENTIN 300 MG CAPSULE. PO SCH ×3 (08:50→22:43)
[2020-08-17 11:00] VITALS: BP 174/110
--- NOTE | 2020-08-17 12:05 | CONS ---
DATE OF CONSULTATION: 08/16/2020 ATTENDING PHYSICIAN: Quan Phillips MD. The patient was seen at the request of Dr. Phillips for rehab evaluation. HISTORY OF PRESENT ILLNESS: This is a 55-year-old male with a medical history of alcohol abuse. The patient is unemployed for the last 6 weeks. 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 Patient had a fall in the last few days, admitted through the Emergency Room. He also had seizures reportedly witnessed. Patient drinks about a pint of vodka daily and also drinks about 8 beers per day. He lives at home with his who works. He admits to alcohol relapse with residual back pain. Radiological studies in the Emergency Room revealed L2 vertebral body compression fracture without retropulsion. CT of the chest obtained due to tachycardia, negative for PE, but note of ectasia of the ascending thoracic aorta measuring 4.4 cm and a linear filling defect along the ascending arch extending to the aortic root, which could represent respiratory motion versus a dissection flap. The patient also had a history of delirium tremens, dilated cardiomyopathy. 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 Never smoked. The patient also had a history of hypertension, cirrhosis of liver, not known allergic to any medication. Social history of smoking less than 1 pack per day. The patient had CT scan of the brain and cervical spine, which revealed cerebral atrophy greater than expected per his age, multilevel changes involving cervical spine resulting in foraminal stenosis at C2-C3, C3-C4, C4-C5, C5-C6 and C6-C7, chronic deformity of the mandibular condyles. CT scan of the face failed to reveal any acute abnormality. X-rays of his right shoulder revealed possible small osseous fragment seen at the posterior inferior aspect of the joint on scapular Y view, could be a small fracture of the glenoid rim, intra-articular body or possibly osteophyte. Mild widening of the acromioclavicular joint, possibly postsurgical patient. PHYSICAL EXAMINATION: GENERAL: Today revealed a middle-aged male. He is alert, oriented to place and person, follows commands appropriately. NEUROLOGIC: Moves all 4 extremities voluntarily where he had 4+/5 grade muscle strength. He had equal perception of touch and pinprick sensation bilaterally. Deep tendon reflexes are decreased to absent overall. He had some pain on active range of motion of right shoulder. No obvious crepitus on range of motion of shoulder. Minimal tenderness to palpation over anterior aspect of right shoulder. The patient is independent with bed mobility and transfers and up walking with wide-based gait for a few steps at bedside. He is receiving IV fluids. ASSESSMENT: A middle-aged male with chronic ethanol abuse with recent onset seizure disorder in a patient with known cirrhosis of liver, hypertension, chronic lower back pain. Clinical evidence of peripheral neuropathy and sprain right shoulder to rule out any osteoarthritis or fracture. Recommendation to try physical modalities. Agree with the plan for physical therapy and occupational therapy to obtain axillary view of right shoulder as recommended by Radiology. He might need to be considered for an MRI scan of her right shoulder. Axillary view of right shoulder x-rays failed to reveal any significant abnormality. Dr. Phillips, I appreciate asking me to participate in the care of this interesting patient. I will be glad to see him for followup with you on as needed basis. FLAKO/ABDIFATAH/ELIA DR: FLAKO/carmela TID: [id number]
--- NOTE | 2020-08-17 12:53 | PDOC ---
PROGRESS NOTES Date of Service DATE: 08/17/20 TIME: 12:47 Subjective Subjective He denies any significant right shoulder pain. Objective Objective Vital Signs Date Time Temp Pulse Resp B/P (MAP) Pulse Ox O2 Delivery O2 Flow Rate FiO2 08/17/20 11:00 98.8 97 20 174/110 (131) 95 Room Air 98.8 08/15/20 05:55 2.0 Intake and Output 08/17/20 07:00 Intake Total 1360 ml Output Total 1300 ml Balance 60 ml Intake Oral 400 ml Blood Product IV Normal Saline Flush 960 ml Output Urine Total 1300 ml # Voids 3 Physical Exam Physical Exam X-ray of right shoulder failed to reveal any fracture but small osteophyte at glenoid fossa area. He is moving right shoulder without any pain. Assessment Assessment Problems Medical Problems: (1) Facial contusion Status: Acute Plan Plan of Care Agree with plans for transfer to alcohol treatment facility and he should continue physical and occupational therapy to work her physical modalities and Codman's exercises to right shoulder and balance activities. Comment Review of Relevant I have reviewed the following items lana (where applicable) has been applied. Labs Laboratory Tests Test 08/16/20 04:00 08/16/20 12:22 Sodium Level 145 mmol/L (136-145) Potassium Level 3.7 mmol/L (3.5-5.1) Chloride Level 111 mmol/L (98-107) Carbon Dioxide Level 20 mmol/L (21-32) Anion Gap 14 (6-14) Blood Urea Nitrogen 6 mg/dL (8-26) Creatinine 0.8 mg/dL (0.7-1.3) Estimated GFR (Cockcroft-Gault) 99.6 BUN/Creatinine Ratio 8 (6-20) Glucose Level 91 mg/dL (70-99) Calcium Level 8.2 mg/dL (8.5-10.1) Magnesium Level 2.0 mg/dL (1.8-2.4) Total Bilirubin 0.8 mg/dL (0.2-1.0) Aspartate Amino Transf (AST/SGOT) 40 U/L (15-37) Alanine Aminotransferase (ALT/SGPT) 50 U/L (16-63) Alkaline Phosphatase 66 U/L (46-116) Total Protein 6.0 g/dL (6.4-8.2) Albumin 2.9 g/dL (3.4-5.0) Albumin/Globulin Ratio 0.9 (1.0-1.7) SARS-CoV-2 RNA (DICK) Negative (Negative) Microbiology 08/14/20 Blood Culture - Preliminary, Resulted NO GROWTH AFTER 2 DAYS Medications Current Medications Sodium Chloride 1,000 ml @ 1,000 mls/hr 1X ONCE IV Last administered on 08/14/20at 15:00; Start 08/14/20 at 15:00; Stop 08/14/20 at 15:59; Status DC Lorazepam (Ativan Inj) 2 mg 1X ONCE IVP Last administered on 08/14/20at 16:33; Start 08/14/20 at 16:00; Stop 08/14/20 at 16:01; Status DC Multivitamins 10 ml/Thiamine HCl 100 mg/Folic Acid 1 mg/Sodium Chloride 1,011.2 ml @ 1,000.088 mls/hr 1X ONCE IV Last administered on 08/14/20at 16:35; Start 08/14/20 at 16:00; Stop 08/14/20 at 17:00; Status DC Ondansetron HCl (Zofran) 4 mg PRN Q8HRS PRN IV NAUSEA/VOMITING Last administered on 08/14/20at 16:31; Start 08/14/20 at 16:30; Stop 08/15/20 at 14:16; Status DC Sodium Chloride 1,000 ml @ 100 mls/hr Q10H IV Last administered on 08/15/20at 11:44; Start 08/14/20 at 16:30; Stop 08/15/20 at 16:29; Status DC Thiamine Mononitrate (Vitamin B-1) 100 mg DAILY PO ; Start 08/15/20 at 09:00; Stop 08/16/20 at 07:12; Status DC Folic Acid (Folic Acid) 1 mg DAILY PO ; Start 08/15/20 at 09:00; Stop 08/16/20 at 07:12; Status DC Multivitamins (Thera M Plus) 1 tab DAILY PO ; Start 08/15/20 at 09:00; Stop 08/16/20 at 07:12; Status DC Folic Acid (Folic Acid) 1 mg DAILY PO ; Start 08/19/20 at 09:00; Status Cancel Thiamine Mononitrate (Vitamin B-1) 100 mg DAILY PO ; Start 08/19/20 at 09:00; Status Cancel Lorazepam (Ativan) 4 mg PRN Q1HR PRN PO For CIWA 8-14; Start 08/14/20 at 17:30 Lorazepam (Ativan) 8 mg PRN Q1HR PRN PO For CIWA 15 or greater; Start 08/14/20 at 17:30 Lorazepam (Ativan Inj) 2 mg PRN Q1HR PRN IV For CIWA 8-14 Last administered on 08/14/20at 21:22; Start 08/14/20 at 17:30 Lorazepam (Ativan Inj) 4 mg PRN Q1HR PRN IV For CIWA 15 or greater Last a dministered on 08/15/20at 21:27; Start 08/14/20 at 17:30 Haloperidol Lactate (Haldol Inj) 5 mg PRN Q4HRS PRN IVP Hallucinatns,Co nfusn,Delirium Last administered on 08/15/20at 23:23; Start 08/14/20 at 17:30 Diphenhydramine HCl (Benadryl) 25 mg PRN Q15MIN PRN IVP EPS symptoms 2'Haldol admin Last administered on 08/16/20at 00:03; Start 08/14/20 at 17:30 Clonidine HCl (Catapres) 0.1 mg PRN Q1HR PRN PO SBP > 180 or DBP > 100, MRX3 Last administered on 08/16/20at 10:29; Start 08/14/20 at 17:30 Lorazepam (Ativan Inj) 2 mg PRN Q15MIN PRN IV SEE COMMENTS; Start 08/14/20 at 17:30 Lorazepam (Ativan Inj) 4 mg PRN Q15MIN PRN IV SEE COMMENTS Last administered on 08/15/20at 16:54; Start 08/14/20 at 17:30 Ondansetron HCl (Zofran) 4 mg PRN Q6HRS PRN IVP NAUSEA/VOMITING; Start 08/14/20 at 17:30 Al Hydroxide/Mg Hydroxide (Mylanta Plus Xs) 30 ml PRN Q3HRS PRN PO HEARTBURN / GAS, 2ND CHOICE; Start 08/14/20 at 17:30 Calcium Carbonate/ Glycine (Tums) 500 mg PRN Q3HRS PRN PO HEARTBURN / GAS; Start 08/14/20 at 17:30 Famotidine (Pepcid Vial) 20 mg BID IVP Last administered on 08/17/20at 08:50; Start 08/14/20 at 21:00 Heparin Sodium (Porcine) (Heparin Sodium) 5,000 unit Q8HRS SQ Last administered on 08/16/20at 21:05; Start 08/14/20 at 22:00 Sodium Chloride (Normal Saline Flush) 3 ml QSHIFT PRN IV AFTER MEDS AND BLOOD DRAWS; Start 08/14/20 at 17:30 Sodium Chloride 1,000 ml @ 100 mls/hr Q10H IV ; Start 08/14/20 at 17:30; Stop 08/14/20 at 17:32; Status DC Lactulose (Lactulose) 20 gm PRN Q12HR PRN PO CONSTIPATION; Start 08/14/20 at 17 :30 Bisacodyl (Dulcolax Supp) 10 mg PRN DAILY PRN [place] CONSTIPATION; Start 08/14/20 at 17:30 Acetaminophen/ Hydrocodone Bitart (Lortab 5/325) 1 tab PRN Q6HRS PRN PO PAIN Last administered on 08/14/20at 19:48; Start 08/14/20 at 19:45 Labetalol HCl (Normodyne Iv Push) 10 mg PRN Q4HRS PRN IVP HYPERTENSION Last administered on 08/16/20at 13:11; Start 08/14/20 at 19:45 Dexmedetomidine HCl 400 mcg/ Sodium Chloride 100 ml @ 4.39 mls/hr CONT PRN IV PER PROTOCOL Last administered on 08/16/20at 01:15; Start 08/14/20 at 23:15; Stop 08/16/20 at 10:56; Status DC Atropine Sulfate (ATROPINE 0.5mg SYRINGE) 0.5 mg PRN Q5MIN PRN IV SEE COMMENTS; Start 08/14/20 at 23:15; Stop 08/16/20 at 10:56; Status DC Multivitamins 10 ml/Thiamine HCl 100 mg/Folic Acid 1 mg/Sodium Chloride 1,011.2 ml @ 1,000.088 mls/hr 1X IV ; Start 08/16/20 at 08:00; Stop 08/18/20 at 07:59; Status Cancel Gabapentin (Neurontin) 300 mg TID PO Last administered on 08/17/20at 08:50; Start 08/16/20 at 09:00 Multivitamins 10 ml/Thiamine HCl 100 mg/Folic Acid 1 mg/Sodium Chloride 1,011.2 ml @ 1,000.088 mls/hr 1X ONCE IV Last administered on 08/16/20at 08:51; Start 08/16/20 at 09:00; Stop 08/16/20 at 10:03; Status DC Active Scripts Active Bactrim Ds Tablet (Sulfamethoxazole/Trimethoprim) 1 Each Tablet 1 Tab PO BID 10 Days Methocarbamol 750 Mg Tablet 1,500 Mg PO PRN Q8HRS PRN 10 Days [Folic Acid] 1 MG Tablet 1 Mg PO DAILY 30 Days Vitamin B-1 (Thiamine Mononitrate) 100 Mg Tablet 100 Mg PO DAILY 30 Days Ativan (Lorazepam) 2 Mg Tablet 2 Mg PO TID PRN 3 Days Gabapentin (Gabapentin) 300 Mg Capsule 300 Mg PO TID 90 Days Catapres (Clonidine Hcl) 0.1 Mg Tablet 0.1 Mg PO Q8HRS 14 Days Reported No Known Medications Prior To Admisstion (Info) Each 1 Each 1X Vitals/I & O Vital Sign - Last 24 Hours 08/16/20 08/16/20 08/16/20 08/16/20 13:11 15:00 19:00 23:00 Temp 97.8 99.6 99.1 97.8 99.6 99.1 Pulse 124 117 66 101 Resp 18 20 20 B/P (MAP) 132/87 116/74 (88) 144/50 (81) 161/104 (123) Pulse Ox 98 94 93 O2 Delivery Room Air Room Air Room Air 08/17/20 08/17/20 08/17/20 08/17/20 03:00 07:00 08:00 11:00 Temp 99.2 99.0 98.8 99.2 99.0 98.8 Pulse 94 92 97 Resp 18 20 20 B/P (MAP) 165/95 (118) 169/105 (126) 174/110 (131) Pulse Ox 97 95 95 O2 Delivery Room Air Room Air Room Air Room Air Intake and Output 08/16/20 08/16/20 08/17/20 15:00 23:00 07:00 Intake Total 1360 ml Output Total 200 ml 1100 ml Balance -200 ml 1360 ml -1100 ml Justifications for Admission Other Justification Alcohol withdrawal, seizure SHIRLEY LYNN MD Aug 17, 2020 12:53
[2020-08-17] MEDS: LABETALOL 20 MG/4 ML DISP.SYRIN. IVP PRN (13:07)
--- NOTE | 2020-08-17 13:07 | PDOC ---
[employer] PROGRESS NOTE Date of Service DOS: DATE: 08/17/20 TIME: 13:05 Chief Complaint Chief Complaint Acute seizure with alcohol withdrawl FALL WITH HEAD CONTUSION, POA Alcoholism, Hypertension, Depression Delirium tremens Dilated cardiomyopathy Cerebral atrophy. This is greater than expected for patient age // .curvilinear hyperdensity within the right frontal extra-axial space due to a prominent cor tical vessel. There is no convincing acute or subacute intracranial hemorrhage. Multilevel change involving the cervical spine, resulting in foraminal stenosis Metabolic encephalopathy , acute ?H/o GIST tumor Right shoulder pain: We will get shoulder x-ray there may be mild anterior dislocation on examination. History of Present Illness History of Present Illness Mr Neville is a 55-year-old male past medical history of alcohol abuse with prior seizures (been to rehab at [facility] and [facility] previously, typically drinks a liter of vodka daily), who presented to the ER after reportedly having an alcohol withdrawal seizure today Seizure was reportedly witnessed to ER for treatment of withdrawal symptoms. hx admitted multiple times for alcohol withdrawal and seizures. States he drinks around 1 pint of vodka daily his last drink was yesterday. After discussion with patient in the ER wanting treatment for his alcoholism is willing to go through a treatment program if available. He admits to alcohol relapse with residual back pain, drinking 8 beers plus a day recent images // X-ray obtained in the ER showed redemonstrated compression and vertical fractures of the L2 vertebral body without retropulsion. CTA chest was obtained due to tachycardia. CTA was negative for PE but did note ectasia of the ascending thoracic aorta measuring 4.4 cm and a linear filling defect along the ascending arch extending to the aortic root which could represent respiratory motion versus a dissection flap. hx Delirium tremens // severe Alcohol abuse acute // Alcohol withdrawal seizure //Dilated cardiomyopathy 08/15: Afebrile. Albumin 2.4. Very agitated despite 4 mg of IV Ativan, on Precedex infusion. No chest pain or shortness of breath. 08/16: Afebrile overnight. Labs stable. No shortness of breath or chest pain. He is working with PT and OT very weeks. Pham catheter still in place. Good appetite. He is little more alert. He is complaining of right shoulder pain which was not initially evaluated due to his delirium. 08/17: Afebrile. Vitals within normal limits. He is not tremulous on my exam and is able to stand and ambulate without issue. X-ray right shoulder showed bony spur noted off the glenoid process of the scapula. Consultation was placed to PM&R; per Halima Duran's exercises to right shoulder and balance activities. Patient is stable to discharge to [place] per my standpoint. Awaiting bed availability. Vitals/I&O Vitals/I&O: Vital Signs Date Time Temp Pulse Resp B/P (MAP) Pulse Ox O2 Delivery O2 Flow Rate FiO2 08/17/20 11:00 98.8 97 20 174/110 (131) 95 Room Air 98.8 I & O 08/16/20 08/16/20 08/17/20 15:00 23:00 07:00 Intake Total 1360 ml Output Total 200 ml 1100 ml Balance -200 ml 1360 ml -1100 ml Physical Exam General: Alert, Oriented X3, Cooperative, No acute distress Heart: Regular rate Lungs: Clear Abdomen: Normal bowel sounds, Soft Extremities: No cyanosis Skin: No rashes, No breakdown Assessment and Plan Assessmemt and Plan Problems Medical Problems: (1) Facial contusion Status: Acute Comment Review of Relevant I have reviewed the following items lana (where applicable) has been applied. Justifications for Admission Other Justification Alcohol withdrawal, seizure JINA LARRY MD Aug 17, 2020 13:07
[2020-08-17 15:26] VITALS: BP 146/98
[2020-08-17 19:00] VITALS: BP 157/98
--- NOTE | 2020-08-17 19:13 | PDOC3 ---
Discharge Summary Date of Admission: Aug 14, 2020 Date of Discharge: Aug 17, 2020 Follow-Up: 1-2 days Admitting Diagnosis comment: TRANSFER TO [place] TRANSFER CONDITION GOOD CONSULTS NEUROLOGY, DR LYNN D/C MEDS SEE MAR PROGNOSIS GOOD WITH COMPLIANCE DISCHARGE DX D/C PLANNING 25 MIN Chief Complaint Acute seizure with alcohol withdrawl FALL WITH HEAD CONTUSION, POA Alcoholism, Hypertension, Depression Delirium tremens Dilated cardiomyopathy Cerebral atrophy. This is greater than expected for patient age // .curvilinear hyperdensity within the right frontal extra-axial space due to a prominent cortical vessel. There is no convincing acute or subacute intracranial hemorrhage. Multilevel change involving the cervical spine, resulting in foraminal stenosis Metabolic encephalopathy , acute ?H/o GIST tumor Right shoulder pain: We will get shoulder x-ray there may be mild anterior dislocation on examination. History of Present Illness History of Present Illness Mr Lozada is a 55-year-old male past medical history of alcohol abuse with prior seizures (been to rehab at [facility] and [facility] previously, typically drinks a liter of vodka daily), who presented to the ER after reportedly having an alcohol withdrawal seizure today Seizure was reportedly witnessed to ER for treatment of withdrawal symptoms. hx admitted multiple times for alcohol withdrawal and seizures. States he drinks around 1 pint of vodka daily his last drink was yesterday. After discussion with patient in the ER wanting treatment for his alcoholism is willing to go through a treatment program if available. He admits to alcohol relapse with residual back pain, drinking 8 beers plus a day recent images // X-ray obtained in the ER showed redemonstrated compression and vertical fractures of the L2 vertebral body without retropulsion. CTA chest was obtained due to tachycardia. CTA was negative for PE but did note ectasia of the ascending thoracic aorta measuring 4.4 cm and a linear filling defect along the ascending arch extending to the aortic root which could represent respiratory motion versus a dissection flap. hx Delirium tremens // severe Alcohol abuse acute // Alcohol withdrawal seizure //Dilated cardiomyopathy 08/15: Afebrile. Albumin 2.4. Very agitated despite 4 mg of IV Ativan, on Precedex infusion. No chest pain or shortness of breath. 08/16: Afebrile overnight. Labs stable. No shortness of breath or chest pain. He is working with PT and OT very weeks. Pham catheter still in place. Good appetite. He is little more alert. He is complaining of right shoulder pain which was not initially evaluated due to his delirium. 08/17: Afebrile. Vitals within normal limits. He is not tremulous on my exam and is able to stand and ambulate without issue. X-ray right shoulder showed bony spur noted off the glenoid process of the scapula. Consultation was placed to PM&R; per Halima Duran's exercises to right shoulder and balance activit ies. Patient is stable to discharge to [place] per my standpoint. Awaiting bed availability. Vitals/I&O Vitals/I&O: Vital Signs Date Time Temp Pulse Resp B/P (MAP) Pulse Ox O2 Delivery O2 Flow Rate FiO2 08/17/20 11:00 98.8 97 20 174/110 (131) 95 Room Air 98.8 I & O 08/16/20 08/16/20 08/17/20 15:00 23:00 07:00 Intake Total 1360 ml Output Total 200 ml 1100 ml Balance -200 ml 1360 ml -1100 ml Physical Exam General: Alert, Oriented X3, Cooperative, No acute distress Heart: Regular rate Lungs: Clear Abdomen: Normal bowel sounds, Soft Extremities: No cyanosis Skin: No rashes, No breakdown Assessment and Plan Assessmemt and Plan Problems Medical Problems: (1) Facial contusion Status: Acute Comment Review of Relevant I have reviewed the following items lana (where applicable) has been applied. Justifications for Admission Justifications for Admission Other Justification Alcohol withdrawal, seizure FINAL DIAGNOSIS Problems Medical Problems: (1) Facial contusion Status: Acute Brief Hospital Course Mr. Lozada is a 55 old [sex] who presented with [ ALCOHOL ABUSE, FALL] CONDITION AT DISCHARGE: Improved Discharge Medications Current Medications Sodium Chloride 1,000 ml @ 1,000 mls/hr 1X ONCE IV Last administered on 08/14/20at 15:00; Start 08/14/20 at 15:00; Stop 08/14/20 at 15:59; Status DC Lorazepam (Ativan Inj) 2 mg 1X ONCE IVP Last administered on 08/14/20at 16:33; Start 08/14/20 at 16:00; Stop 08/14/20 at 16:01; Status DC Multivitamins 10 ml/Thiamine HCl 100 mg/Folic Acid 1 mg/Sodium Chloride 1,011.2 ml @ 1,000.088 mls/hr 1X ONCE IV Last administered on 08/14/20at 16:35; Start 08/14/20 at 16:00; Stop 08/14/20 at 17:00; Status DC Ondansetron HCl (Zofran) 4 mg PRN Q8HRS PRN IV NAUSEA/VOMITING Last administered on 08/14/20at 16:31; Start 08/14/20 at 16:30; Stop 08/15/20 at 14:16; Status DC Sodium Chloride 1,000 ml @ 100 mls/hr Q10H IV Last administered on 08/15/20at 11:44; Start 08/14/20 at 16:30; Stop 08/15/20 at 16:29; Status DC Thiamine Mononitrate (Vitamin B-1) 100 mg DAILY PO ; Start 08/15/20 at 09:00; Stop 08/16/20 at 07:12; Status DC Folic Acid (Folic Acid) 1 mg DAILY PO ; Start 08/15/20 at 09:00; Stop 08/16/20 at 07:12; Status DC Multivitamins (Thera M Plus) 1 tab DAILY PO ; Start 08/15/20 at 09:00; Stop 08/16/20 at 07:12; Status DC Folic Acid (Folic Acid) 1 mg DAILY PO ; Start 08/19/20 at 09:00; Status Cancel Thiamine Mononitrate (Vitamin B-1) 100 mg DAILY PO ; Start 08/19/20 at 09:00; Status Cancel Lorazepam (Ativan) 4 mg PRN Q1HR PRN PO For CIWA 8-14; Start 08/14/20 at 17:30 Lorazepam (Ativan) 8 mg PRN Q1HR PRN PO For CIWA 15 or greater; Start 08/14/20 at 17:30 Lorazepam (Ativan Inj) 2 mg PRN Q1HR PRN IV For CIWA 8-14 Last administered on 08/14/20at 21:22; Start 08/14/20 at 17:30 Lorazepam (Ativan Inj) 4 mg PRN Q1HR PRN IV For CIWA 15 or greater Last administered on 08/15/20at 21:27; Start 08/14/20 at 17:30 Haloperidol Lactate (Haldol Inj) 5 mg PRN Q4HRS PRN IVP Hallucinatns,Confusn,Delirium Last administered on 08/15/20at 23:23; Start 08/14/20 at 17:30 Diphenhydramine HCl (Benadryl) 25 mg PRN Q15MIN PRN IVP EPS symptoms 2'Haldol admin Last administered on 08/16/20at 00:03; Start 08/14/20 at 17:30 Clonidine HCl (Catapres) 0.1 mg PRN Q1HR PRN PO SBP > 180 or DBP > 100, MRX3 Last administered on 08/16/20at 10:29; Start 08/14/20 at 17:30 Lorazepam (Ativan Inj) 2 mg PRN Q15MIN PRN IV SEE COMMENTS; Start 08/14/20 at 17:30 Lorazepam (Ativan Inj) 4 mg PRN Q15MIN PRN IV SEE COMMENTS Last administered on 08/15/20at 16:54; Start 08/14/20 at 17:30 Ondansetron HCl (Zofran) 4 mg PRN Q6HRS PRN IVP NAUSEA/VOMITING; Start 08/14/20 at 17:30 Al Hydroxide/Mg Hydroxide (Mylanta Plus Xs) 30 ml PRN Q3HRS PRN PO HEARTBURN / GAS, 2ND CHOICE; Start 08/14/20 at 17:30 Calcium Carbonate/ Glycine (Tums) 500 mg PRN Q3HRS PRN PO HEARTBURN / GAS; Start 08/14/20 at 17:30 Famotidine (Pepcid Vial) 20 mg BID IVP Last administered on 08/17/20at 08:50; Start 08/14/20 at 21:00; Stop 08/17/20 at 14:48; Status DC Heparin Sodium (Porcine) (Heparin Sodium) 5,000 unit Q8HRS SQ Last administered on 08/16/20at 21:05; Start 08/14/20 at 22:00 Sodium Chloride (Normal Saline Flush) 3 ml QSHIFT PRN IV AFTER MEDS AND BLOOD DRAWS; Start 08/14/20 at 17:30 Sodium Chloride 1,000 ml @ 100 mls/hr Q10H IV ; Start 08/14/20 at 17:30; Stop 08/14/20 at 17:32; Status DC Lactulose (Lactulose) 20 gm PRN Q12HR PRN PO CONSTIPATION; Start 08/14/20 at 17:30 Bisacodyl (Dulcolax Supp) 10 mg PRN DAILY PRN [place] CONSTIPATION; Start 08/14/20 at 17:30 Acetaminophen/ Hydrocodone Bitart (Lortab 5/325) 1 tab PRN Q6HRS PRN PO PAIN Last administered on 08/14/20at 19:48; Start 08/14/20 at 19:45 Labetalol HCl (Normodyne Iv Push) 10 mg PRN Q4HRS PRN IVP HYPERTENSION Last administered on 08/17/20at 13:07; Start 08/14/20 at 19:45 Dexmedetomidine HCl 400 mcg/ Sodium Chloride 100 ml @ 4.39 mls/hr CONT PRN IV PER PROTOCOL Last administered on 08/16/20at 01:15; Start 08/14/20 at 23:15; Stop 08/16/20 at 10:56; Status DC Atropine Sulfate (ATROPINE 0.5mg SYRINGE) 0.5 mg PRN Q5MIN PRN IV SEE COMMENTS; Start 08/14/20 at 23:15; Stop 08/16/20 at 10:56; Status DC Multivitamins 10 ml/Thiamine HCl 100 mg/Folic Acid 1 mg/Sodium Chloride 1,011.2 ml @ 1,000.088 mls/hr 1X IV ; Start 08/16/20 at 08:00; Stop 08/18/20 at 07:59; Status Cancel Gabapentin (Neurontin) 300 mg TID PO Last administered on 08/17/20at 14:44; Start 08/16/20 at 09:00 Multivitamins 10 ml/Thiamine HCl 100 mg/Folic Acid 1 mg/Sodium Chloride 1,011.2 ml @ 1,000.088 mls/hr 1X ONCE IV Last administered on 08/16/20at 08:51; Start 08/16/20 at 09:00; Stop 08/16/20 at 10:03; Status DC Famotidine (Pepcid) 20 mg BID PO ; Start 08/17/20 at 21:00 Active Scripts Active Bactrim Ds Tablet (Sulfamethoxazole/Trimethoprim) 1 Each Tablet 1 Tab PO BID 10 Days Methocarbamol 750 Mg Tablet 1,500 Mg PO PRN Q8HRS PRN 10 Days [Folic Acid] 1 MG Tablet 1 Mg PO DAILY 30 Days Vitamin B-1 (Thiamine Mononitrate) 100 Mg Tablet 100 Mg PO DAILY 30 Days Ativan (Lorazepam) 2 Mg Tablet 2 Mg PO TID PRN 3 Days Gabapentin (Gabapentin) 300 Mg Capsule 300 Mg PO TID 90 Days Catapres (Clonidine Hcl) 0.1 Mg Tablet 0.1 Mg PO Q8HRS 14 Days Reported No Known Medications Prior To Admisstion (Info) Each 1 Each 1X Vital Signs Vital Signs Date Time Temp Pulse Resp B/P (MAP) Pulse Ox O2 Delivery O2 Flow Rate FiO2 08/17/20 15:26 98.8 89 20 146/98 (114) 97 Room Air 98.8 Labs Laboratory Tests Test 08/16/20 04:00 08/16/20 12:22 Sodium Level 145 mmol/L (136-145) Potassium Level 3.7 mmol/L (3.5-5.1) Chloride Level 111 mmol/L (98-107) Carbon Dioxide Level 20 mmol/L (21-32) Anion Gap 14 (6-14) Blood Urea Nitrogen 6 mg/dL (8-26) Creatinine 0.8 mg/dL (0.7-1.3) Estimated GFR (Cockcroft-Gault) 99.6 BUN/Creatinine Ratio 8 (6-20) Glucose Level 91 mg/dL (70-99) Calcium Level 8.2 mg/dL (8.5-10.1) Magnesium Level 2.0 mg/dL (1.8-2.4) Total Bilirubin 0.8 mg/dL (0.2-1.0) Aspartate Amino Transf (AST/SGOT) 40 U/L (15-37) Alanine Aminotransferase (ALT/SGPT) 50 U/L (16-63) Alkaline Phosphatase 66 U/L (46-116) Total Protein 6.0 g/dL (6.4-8.2) Albumin 2.9 g/dL (3.4-5.0) Albumin/Globulin Ratio 0.9 (1.0-1.7) SARS-CoV-2 RNA (DICK) Negative (Negative) Allergies Allergies Coded Allergies Type Severity Reaction Last Updated Verified No Known Drug Allergies 03/20/19 No Disposition/Orders: Other (D/C TO [facility]) Justicifation of Admission Dx: Justifications for Admission: Justification of Admission Dx: N/A CEDRIC EAGLE MD Aug 17, 2020 19:13
[2020-08-17] MEDS ORDERED: LACT20SO PO (19:17)
[2020-08-17] MEDS ORDERED: MAG30ORA2 PO (19:17)
[2020-08-17] MEDS ORDERED: FAMO20TA5 PO (19:17)
--- NOTE | 2020-08-17 19:18 | SNU/HH DC ---
DISCHARGE ORDERS DISCHARGE INFORMATION: DISCHARGE DATE: Aug 17, 2020 FINAL DIAGNOSIS Problems Medical Problems: (1) Facial contusion Status: Acute CONDITION ON DISCHARGE: Stable CODE STATUS: Code Status: Full [facility]: SNF STAY <30 DAYS: No HOSPICE: HOSPICE: No HOSPICE EVAL & TREAT: No LTAC: ADMIT TO LTAC: No POST DISCHARGE ORDERS: ACTIVITY ORDERS: No restrictions, Resume previous activity, Activity as tolera suzy WEIGHT BEARING STATUS: No restrictions, Full weight bearing, As tolerated DIET AFTER DISCHARGE: Cardiac WOUND/INCISION CARE: No wound care needed CHECKS AFTER DISCHARGE: CHECKS AFTER DISCHARGE: Check blood press - daily, Check your Temp as needed FOLLOW-UP: PHYSICIAN FOLLOW-UP: PCP AT [facility] TREATMENT/EQUIPMENT ORDERS: ADAPTIVE EQUIPMENT NEEDED: None Occupational Therapy For: Evaluation/Treatment DISCHARGE MEDICATIONS: Home Meds Active Scripts Famotidine (FAMOTIDINE) 20 Mg Tablet, 20 MG PO BID for GERD for 14 Days, #28 TAB Prov:CEDRIC EAGLE MD 08/17/20 Mag Hydrox/Al Hydrox/Simeth (MAG-AL PLUS XS SUSPENSION) 30 Ml Oral.susp, 30 ML PO PRN Q3HRS PRN for HEARTBURN / GAS, 2ND CHOICE for 14 Days, #120 MISC Prov:CEDRIC EAGLE MD 08/17/20 Lactulose (LACTULOSE) 20 Gm/30 Ml Solution, 20 GM PO PRN Q12HR PRN for CONSTIPATION for 14 Days, #120 MISC Prov:CEDRIC EAGLE MD 08/17/20 [Folic Acid] 1 MG TABLET No Conflict Check, 1 MG PO DAILY for supplement for 30 Days, #30 Prov:LATANYA LÓPEZ MD 03/30/20 Thiamine Mononitrate (VITAMIN B-1) 100 Mg Tablet, 100 MG PO DAILY for supplement for 30 Days, #30 TAB 2 Refills Prov:LATANYA LÓPEZ MD 03/30/20 Gabapentin (GABAPENTIN ) 300 Mg Capsule, 300 MG PO TID for NEUROGENIC PAIN/Alcohol withdr for 90 Days, #270 CAP Prov:DYAN SANDOVAL MD 12/23/19 Clonidine Hcl (CATAPRES) 0.1 Mg Tablet, 0.1 MG PO Q8HRS for Alcohol withdrawal for 14 Days, #42 TAB Prov:DYAN SANDOVAL MD 12/23/19 Discontinued Reported Medications Info (NO KNOWN MEDICATIONS PRIOR TO ADMISSTION) Each, 1 EACH MC 1X for none, EACH 06/06/19 Discontinued Scripts Sulfamethoxazole/Trimethoprim (BACTRIM DS TABLET) 1 Each Tablet, 1 TAB PO BID for infection for 10 Days, #20 TAB Prov:HILDA NEGRETE MD 06/07/20 Methocarbamol (METHOCARBAMOL) 750 Mg Tablet, 1500 MG PO PRN Q8HRS PRN for MUSCLE SPASMS for 10 Days, #30 TAB Prov:LATANYA LÓPEZ MD 03/30/20 Lorazepam (ATIVAN) 2 Mg Tablet, 2 MG PO TID PRN for ALCOHOL WITHDRAWAL for 3 Days, #9 TAB Prov:DYAN SANDOVAL MD 12/23/19 CEDRIC EAGLE MD Aug 17, 2020 19:18
[2020-08-17] MEDS ORDERED: FAMOTIDINE 20 MG TABLET. PO SCH (21:00)
[2020-08-17 23:01] VITALS: BP 140/109
--- NOTE | 2020-08-18 01:33 | NUR ---
Patient discharged to [facility]. Report called to nurse at facility. IV discontinued. All belongings with patient. EMS here to transfer patient to [facility]. 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 Patient assisted out on stretcher.
[2020-08-19] MEDS ORDERED: FOLIC ACID 1 MG TABLET. PO SCH (09:00)
[2020-08-19] MEDS ORDERED: THIAMINE 100 MG TABLET. PO SCH (09:00)
== END 2020-08-18 01:37 | DRG 100 ==
LOC: ER 14:53 → 1 WEST ICU 16:00 → 6 SOUTH 08-16 12:13
PROVIDERS: ADMIT Family Medicine; ATTEND Family Medicine
DX: G40.909 Epilepsy, unspecified, not intractable, without status epilepticus (principal); G93.41 Metabolic encephalopathy; F10.231 Alcohol dependence with withdrawal delirium; I42.0 Dilated cardiomyopathy; S00.83XA Contusion of other part of head, initial encounter; E11.9 Type 2 diabetes mellitus without complications; F17.210 Nicotine dependence, cigarettes, uncomplicated; F32.9 Major depressive disorder, single episode, unspecified; G62.9 Polyneuropathy, unspecified; I10 Essential (primary) hypertension; I25.10 Atherosclerotic heart disease of native coronary artery without angina pectoris; I77.810 Thoracic aortic ectasia; J34.2 Deviated nasal septum; K74.60 Unspecified cirrhosis of liver; K76.0 Fatty (change of) liver, not elsewhere classified; M47.9 Spondylosis, unspecified; M48.02 Spinal stenosis, cervical region; M77.9 Enthesopathy, unspecified; Z81.8 Family history of other mental and behavioral disorders; Z82.49 Family history of ischemic heart disease and other diseases of the circulatory system; Z85.00 Personal history of malignant neoplasm of unspecified digestive organ; Z85.831 Personal history of malignant neoplasm of soft tissue; Z91.83 Wandering in diseases classified elsewhere; G89.29 Other chronic pain; K57.90 Diverticulosis of intestine, part unspecified, without perforation or abscess without bleeding; M19.90 Unspecified osteoarthritis, unspecified site; Z20.822 Contact with and (suspected) exposure to COVID-19; W18.39XA Other fall on same level, initial encounter; Y93.89 Activity, other specified; Y92.89 Other specified places as the place of occurrence of the external cause; Y99.8 Other external cause status
CPT/HCPCS: 36415; 70450; 70486; 72125; 73020; 73030; 80053; 80307; 82550; 82962; 83735; 84100; 84443; 84484; 85025; 85610; 85730; 87040; 93005; 93306; 96361; 96365; 96375; G0480; J1200; J1630; J1644; J2060; J2405; J3411; J3490; J7030; U0003; U0005; 99285-25; G0378

== ENCOUNTER 2020-11-20 14:01 | Emergency (ER) | payer BC ==
[~2020-11-20] VITALS: Ht 180.3 cm; Wt 83.3 kg
[~2020-11-20 14:01] MED LIST changes: +FAMO20TA5 PO; +LACT20SO PO; +MAG30ORA2 PO
[2020-11-20] MEDS ORDERED: MULTIVIT INFUSN,ADULT 4,VIT K 10 ML, THIAMINE INJ 100 MG, FOLIC ACID INJ 1 MG in IV NOR... IV ONE (15:00)
[2020-11-20] MEDS ORDERED: ONDANSETRON PF 4 MG/2 ML VIAL. IVP ONE (15:00)
[2020-11-20 15:01] LABS: BASO % 1 % (0-3); EOS % 0 % (0-3); HEMATOCRIT 43.3 % (39.0-53.0); HEMOGLOBIN 14.2 g/dL (13.0-17.5); LYMPH # 0.8 x10^3/uL (1.0-4.8); LYMPH % 13 % (24-48); MEAN CORPUSCULAR HEMOGLOBIN 27 pg (25-35); MEAN CORPUSCULAR HGB CONC 33 g/dL (31-37); MEAN CORPUSCULAR VOLUME 83 fL (79-100); MONO # 0.7 x10^3/uL (0.0-1.1); MONO % 11 % (0-9); NEUT # 4.6 x10^3/uL (1.8-7.7); NEUT % 75 % (31-73); PLATELET COUNT 176 x10^3/uL (140-400); RED BLOOD COUNT 5.24 x10^6/uL (4.30-5.70); RED CELL DISTRIBUTION WIDTH 22.9 % (11.5-14.5); WHITE BLOOD COUNT 6.1 x10^3/uL (4.0-11.0)
[2020-11-20 15:21] LABS: CREATININE 0.9 mg/dL (0.7-1.3); POTASSIUM 3.6 mmol/L (3.5-5.1)
[2020-11-20 15:27] LABS: ALBUMIN 3.6 g/dL (3.4-5.0); TOTAL BILIRUBIN 1.3 mg/dL (0.2-1.0); TOTAL PROTEIN 7.3 g/dL (6.4-8.2)
--- NOTE | 2020-11-20 15:27 | RAD ---
Single AP view of the chest. Comparison: 03/28/2020. Indication: Nausea and vomiting Findings: The heart is not enlarged. There is no pneumothorax or effusion. No air space or interstitial diseas e. Impression: 1. No acute cardiopulmonary process. Electronically signed by: Giovanni Redding MD (11/20/2020 3:25 PM) [facility]
[2020-11-20] MEDS ORDERED: METOCLOPRAMIDE HCL 10 MG/2 ML VIAL. IVP ONE (15:30)
[2020-11-20] MEDS ORDERED: LISINOPRIL 10 MG TABLET PO ONE (15:30)
[2020-11-20 15:47] LABS: ANISOCYTOSIS MOD; PLT ESTIMATE ADEQUATE (ADEQUATE)
--- NOTE | 2020-11-20 16:38 | PHYS DOC ---
Past Medical History Past Medical History: Alcoholism, Hypertension, Other Additional Past Medical Histor: seizures with alcohol withdrawl Past Surgical History: No Surgical History Additional Past Surgical Histo: L ANKLE, had benign tumor removed from abdomen last year Smoking Status: Never Smoker Alcohol Use: Heavy Additional Information: 1 PINT OF VODKA DAILY FOR YEARS. Drug Use: None General Adult EDM: Chief Complaint: WITHDRAWL HPI: HPI: 55-year-old male past medical history of daily alcoholism and hypertension, presents the ED with his , (patient consents to his/her/their knowledge and involvement in pts' medical care), with complaints of nausea and vomiting stating his last drink of alcohol was around 5 AM, drinks beer and vodka daily. States he supposed to take lisinopril 10 mg in a 20 mg tablet daily but vomited this up this morning. States he can no longer afford alcohol, is borrowing money from family members for rent, and is interested in detox. Patient denies any falls or head trauma. Review of Systems: Review of Systems: Constitutional: Denies fever or chills. [] Eyes: Denies change in visual acuity. [] HENT: Denies nasal congestion or sore throat. [] Respiratory: Denies cough or shortness of breath. [] Cardiovascular: Denies chest pain or edema. [] GI: Denies bloody diarrhea or constipation : Denies incontinence or saddle anesthesia Musculoskeletal: Denies back pain or joint pain. [] Integument: Denies rash or diaphoresis Neurologic: Denies headache, focal weakness or sensory changes. [] Endocrine: Denies polyuria or polydipsia. [] Lymphatic: Denies swollen glands. [] Psychiatric: Denies depression or anxiety. [] Heart Score: C/O Chest Pain: No Risk Factors: Risk Factors: DM, Current or recent (<one month) smoker, HTN, HLP, family history of CAD, obesity. Risk Scores: Score 0 - 3: 2.5% MACE over next 6 weeks - Discharge Home Score 4 - 6: 20.3% MACE over next 6 weeks - Admit for Clinical Observation Score 7 - 10: 72.7% MACE over next 6 weeks - Early Invasive Strategies Current Medications: Current Medications Medications (Trade) Dose Ordered Sig/Jacqueline Start Time Stop Time Status Last Admin Dose Admin Lisinopril (Prinivil) 20 mg 1X ONCE 11/20/20 15:30 11/20/20 15:31 11/20/20 16:18 20 MG Lorazepam (Ativan Inj) 2 mg 1X ONCE 11/20/20 15:15 11/20/20 15:16 11/20/20 15:21 2 MG Metoclopramide HCl (Reglan Vial) 10 mg 1X ONCE 11/20/20 15:30 11/20/20 15:31 Multivitamins 10 ml/Thiamine HCl 100 mg/Folic Acid 1 mg/Sodium Chloride 1,011.2 ml @ 1,000.088 mls/hr 1X ONCE 11/20/20 15:00 11/20/20 16:00 11/20/20 15:25 1,000.088 MLS/HR Ondansetron HCl (Zofran) 4 mg 1X ONCE 11/20/20 15:00 11/20/20 15:01 Allergies: Allergies: Allergies Coded Allergies Type Severity Reaction Last Updated Verified No Known Drug Allergies 03/20/19 No Physical Exam: PE: Constitutional: Well developed, well nourished, no acute distress, non-toxic appearance. HENT: Normocephalic, atraumatic, dry mucous membranes Eyes: EOMI, conjunctiva normal, no discharge. Neck: Normal range of motion, supple, no midline neck pain Cardiovascular: S1/2 present, mild tachycardia on arrival Lungs & Thorax: Speaking in full sentences, bilateral equal chest rise, no tachypnea or increased work of breathing Abdomen: soft, no tenderness, Skin: Warm, dry, no erythema, no rash. [] Back: No midline tenderness, no CVA tenderness. [] Extremities: No tenderness, no cyanosis, no lower extremity edema, minimal upper extremity tremors Neurologic: Alert and oriented X 3, normal motor function, normal sensory function, no focal deficits noted. [] Psychologic: Affect normal, judgement normal, mood normal. [] Current Patient Data: Labs: Laboratory Tests Test 11/20/20 14:36 White Blood Count 6.1 x10^3/uL (4.0-11.0) Red Blood Count 5.24 x10^6/uL (4.30-5.70) Hemoglobin 14.2 g/dL (13.0-17.5) Hematocrit 43.3 % (39.0-53.0) Mean Corpuscular Volume 83 fL (79-100) Mean Corpuscular Hemoglobin 27 pg (25-35) Mean Corpuscular Hemoglobin Concent 33 g/dL (31-37) Red Cell Distribution Width 22.9 % (11.5-14.5) H Platelet Count 176 x10^3/uL (140-400) Neutrophils (%) (Auto) 75 % (31-73) H Lymphocytes (%) (Auto) 13 % (24-48) L Monocytes (%) (Auto) 11 % (0-9) H Eosinophils (%) (Auto) 0 % (0-3) Basophils (%) (Auto) 1 % (0-3) Neutrophils # (Auto) 4.6 x10^3/uL (1.8-7.7) Lymphocytes # (Auto) 0.8 x10^3/uL (1.0-4.8) L Monocytes # (Auto) 0.7 x10^3/uL (0.0-1.1) Eosinophils # (Auto) 0.0 x10^3/uL (0.0-0.7) Basophils # (Auto) 0.0 x10^3/uL (0.0-0.2) Platelet Estimate Adequate (ADEQUATE) Anisocytosis Mod Sodium Level 137 mmol/L (136-145) Potassium Level 3.6 mmol/L (3.5-5.1) Chloride Level 100 mmol/L (98-107) Carbon Dioxide Level 23 mmol/L (21-32) Anion Gap 14 (6-14) Blood Urea Nitrogen 7 mg/dL (8-26) L Creatinine 0.9 mg/dL (0.7-1.3) Estimated GFR (Cockcroft-Gault) 87.0 BUN/Creatinine Ratio 8 (6-20) Glucose Level 127 mg/dL (70-99) H Calcium Level 9.0 mg/dL (8.5-10.1) Total Bilirubin 1.3 mg/dL (0.2-1.0) H Aspartate Amino Transferase (AST) 53 U/L (15-37) H Alanine Aminotransferase (ALT) 71 U/L (16-63) H Alkaline Phosphatase 86 U/L (46-116) Creatine Kinase 88 U/L (39-308) Troponin I Quantitative < 0.017 ng/mL (0.000-0.055) Total Protein 7.3 g/dL (6.4-8.2) Albumin 3.6 g/dL (3.4-5.0) Albumin/Globulin Ratio 1.0 (1.0-1.7) Lipase 126 U/L (73-393) Ethyl Alcohol Level < 10 mg/dL (0-10) Laboratory Tests 11/20/20 14:36 Laboratory Tests 11/20/20 14:36 Vital Signs: Vital Signs Date Time Temp Pulse Resp B/P (MAP) Pulse Ox O2 Delivery O2 Flow Rate FiO2 11/20/20 16:18 93 157/97 11/20/20 14:18 97.9 18 100 97.9 EKG: EKG: Sinus tachycardia 91 bpm, no axis deviation, QTC 481, T wave inversion lead III and aVF, no ST elevation or ST depression small, nonpathologic Q waves in 1 and aVL, no active chest pain Radiology/Procedures: Radiology/Procedures: IMAGING REPORT Signed PATIENT: PASQUALE ORELLANA ACCOUNT: [id number] : 1965 LOCATION: ER AGE: 55 SEX: M EXAM STATUS: PRE ER ORD. PHYSICIAN: ARTURO LIM DO REASON: n/v PROCEDURE: PORTABLE CHEST 1V Single AP view of the chest. Comparison: 03/28/2020. Indication: Nausea and vomiting Findings: The heart is not enlarged. There is no pneumothorax or effusion. No air space or interstitial disease. Impression: 1. No acute cardiopulmonary process. Electronically signed by: Giovanni Redding MD (11/20/2020 3:25 PM) [facility] DICTATED and SIGNED BY: GIOVANNI REDDING MD DATE: 11/20/20 [id number] 0 Course & Med Decision Making: Course & Med Decision Making Pertinent Labs and Imaging studies reviewed. (See chart for details) Concern for alcohol abuse with dehydration and very mild alcohol withdrawal. Patient with no hallucinations, his medical history made capacity. Only required Ativan once. Tachycardia resolved with no electrolyte abnormalities. Patient prefers outpatient management will prescribe Librium taper and referr to [facility] for outpatient detox-very supportive at bedside. Will discharge home with strict ED return precautions were given for confusion, hallucinations, or trauma. Encouraged urgent outpatient follow-up with PMD. Life-threatening processes were considered but are low suspicion at this time, given history, physical exam and ED workup. Pt was educated on all prescription medications and adverse effects. All patient's questions were answered and pt was stable at time of discharge. Life/limb-threatening differential includes but is not limited to, end organ damage/sepsis, trauma/abuse/neglect, neurologic deficit, alcohol/drug ingestion, toxidrome, suicidal/homicidal ideations plans or attempts, psychosis or mental illness resulting in self neglect and inability to care for self. I have spoken with the patient and/or caregivers. I explained the patient's condition, diagnoses and treatment plan based on the information available to me at this time. I have answered the patient and/or caregiver's questions and addressed any concerns. The patient and/or caregivers have a good understanding of patient's diagnosis, condition and treatment plan as can be expected at this point. Vital signs have been stable. Patient's condition is stable and appropriate for discharge from the emergency department. Patient will pursue further outpatient evaluation with primary care physician or other designated or consulting physician as outlined in the discharge instructions. The patient and/or caregivers are agreeable to this plan of care and follow-up instructions have been explained in detail. The patient and/or caregivers have received these instructions in written form and have expressed an understanding of the discharge instructions. The patient and/or caregivers are aware that any significant change of condition or worsening of symptoms should prompt immediate return to this or the closest emergency department or call to 911Craig Schmidt Disclaimer: Brayan Disclaimer: This electronic medical record was generated, in whole or in part, using a voice recognition dictation system. Departure Departure Impression: Primary Impression: Alcohol abuse Additional Impression: Dehydration Disposition: 01 HOME / SELF CARE / HOMELESS Condition: STABLE Referrals: NO PCP (PCP) Follow-up with your primary care physician in 24 to 48 hours OR FOLLOW UP WITH FAMILY MEDICINE: [address], [address] [place] [address] Patient Instructions: Alcohol Intoxication, Alcohol Withdrawal Additional Instructions: [facility] AND FOR SUBSTANCE ABUSE MANAGEMENT [address] [place] [address] 24-hour crisis line: [phone] EMERGENCY DEPARTMENT GENERAL DISCHARGE INSTRUCTIONS Thank you for coming to [facility] Emergency Department (ED) today and trusting us with you care. We trust that you had a positive experience in our Emergency Department. If you wish to speak to the department management, you may call the Director at [phone]. YOUR FOLLOW UP INSTRUCTIONS ARE FOLLOWS: 1. Do you have a private Doctor? If you do not have a private doctor, please ask for a resource list of physicians or clinics that may be able to assist you with follow up care. 2. The Emergency Physicain has interpreted your x-rays. The X-Ray specialist will also review them. If there is a change in the findings, you will be notified in 48 hours when at all possible. 3. A lab test or culture has been done, your results will be reviewed and you will be notified if you need a change in treatment. ADDITIONAL INSTRUCTIONS AND INFORMATION: 1. Your care today has been supervised by a physician who is specially trained in emergency care. Many problems require more than one evaluation for a complete diagnosis and treatment. We recommend that you schedule your follow up appointment as recommended to ensure complete treatment of you illness or injury. If you are unable to obtain follow up care and continue to have a problem, or if your condition worsens, we recommend that you return to the ED. 2. We are not able to safely determine your condition over the phone nor are we able to give sound medical advice over the phone. For these safety reasons, if you call for medical advice we will ask you to come to the ED for further evaluation. 3. If you have any questions regarding these discharge instructions please call the ED at [phone]. SAFETY INFORMATION: In the interest of safety, wellness, and injury prevention; we encourage you to wear your sealbelt, if you smoke; quite smoking, and we encourage family to use a protective helmet for bicycling and other sporting events that present an increased risk for head injury. IF YOUR SYMPTOMS WORSEN OR NEW SYMPTOMS DEVELOP, OR YOU HAVE CONCERNS ABOUT YOUR CONDITION; OR IF YOUR CONDITION WORSENS WHILE YOU ARE WAITING FOR YOUR FOLLOW UP APPOINTMENT; EITHER CONTACT YOUR PRIMARY CARE DOCTOR, THE PHYSICIAN WHOSE NAME AND NUMBER YOU WERE GIVEN, OR RETURN TO THE ED IMMEDIATELY. Scripts Chlordiazepoxide Hcl (CHLORDIAZEPOXIDE HCL) 25 Mg Capsule 25 MG PO PRN PRN for WITHDRAWAL IRRITABILITY MDD 300 mg/daily, #30 CAP take 2 tablets by mouth, every 8 hours x 2 days, take 1 tablet by mouth, every 8 hours x 2 days, take 1 tablet by mouth, every 8 hours prn Prov: ARTURO LIM DO 11/20/20 ARTURO LIM DO Nov 20, 2020 16:38
[2020-11-20 17:48] VITALS: BP 148/95
--- NOTE | 2020-11-20 18:09 | EKG ---
[facility] [address] [place] [address] Test Date: 2020-11-20 Test Time: 15:12:16 Pat Name: PASQUALE ORELLANA Department: Room: Gender: M Site Coordinator: [id number] : 1965 Requested By: ARTURO LIM Order Number: [id number] Reading MD: Measurements Intervals [place] Rate: 91 P: 213 VA: 108 QRS: -29 QRSD: 94 T: -5 QT: 390 QTc: 481 Interpretive Statements SUPRAVENTRICULAR RHYTHM LEFTWARD AXIS CONSIDER LEFT VENTRICULAR HYPERTROPHY PROLONGED QT POSSIBLY ABNORMAL ECG RI6.02 No previous ECG available for comparison
[2020-11-20] MEDS ORDERED: CHLO25CA9 PO (18:33)
== END 2020-11-20 18:46 | disposition home or self-care (01) ==
LOC: ER 14:01
DX: F10.20 Alcohol dependence, uncomplicated (principal); Y90.0 Blood alcohol level of less than 20 mg/100 ml; R11.2 Nausea with vomiting, unspecified; I10 Essential (primary) hypertension
CPT/HCPCS: 36415; 71045; 80053; 82550; 83690; 84484; 85025; 93005; 96365; 96366; 96375; 99285; G0480; J2060; J2405; J3411; J3490; J7030

== ENCOUNTER 2021-01-30 14:59 | Inpatient (IN) | payer BC ==
[~2021-01-30] VITALS: Ht 180.3 cm; Wt 90.0 kg
[~2021-01-30 14:59] MED LIST changes: +CHLO25CA9 PO
--- NOTE | 2021-01-30 15:59 | PDOC1 ---
History and Physical Date of Admission Date of Admission DATE: 01/30/21 TIME: 15:59 Identification/Chief Complaint Chief Complaint Witnessed seizure Source Source: Chart review, Patient History of Present Illness History of Present Illness Mr Lozada is a 55-year-old male past medical history of alcohol abuse, who presented to the ER after reportedly having an alcohol withdrawal seizure today witnessed at work. Seizure was reportedly witnessed and he did not strike his head per bystanders and came to ER for treatment of withdrawal symptoms. hx admitted multiple times for alcohol withdrawal and seizures. Stated he drinks around 1 pint of vodka daily his last drink was more than a day ago. He sometimes drinks beers as well. Still very confused during examination, falling asleep frequently. Did receive ativan. No seizure activity noted in ED. Labs with WBC 7.4, Hb 13.3, platelets one hundred twelve, NA 137, K3.6, lactic acid 6.8, anion gap twenty-four, BUN ten, CR 1.3, glucose one hundred forty- four, calcium 8.9, bilirubin one, AST ninety-four, NA ALT eighty-four, alkaline phosphatase ninety-four, albumin 3.6, urine drug screen negative alcohol zero, urinalysis bland. Admitted for further care. Past Medical History Cardiovascular: CAD, HTN, Other Pulmonary: No pertinent hx CENTRAL NERVOUS SYSTEM: Seizure GI: Diverticulosis Heme/Onc: Cancer, Iron deficiency Anemia Hepatobiliary: Other Psych: Addictions Musculoskeletal: Osteoarthritis Rheumatologic: No pertinent hx Infectious disease: No pertinent hx Renal/: No pertinent hx Endocrine: Diabetes Past Surgical History Past Surgical History: Other Family History Family History: Alcohol Abuse, Coronary Artery Disease, Hypertension Social History Smoke: No ALCOHOL: heavy Drugs: None Current Medications Current Medications Current Medications Lorazepam (Ativan Inj) 1 mg 1X ONCE IVP ; Start 01/30/21 at 16:00; Stop 01/30/21 at 16:01 Active Scripts Active Chlordiazepoxide Hcl 25 Mg Capsule 25 Mg PO PRN PRN MDD 300 mg/daily take 2 tablets by mouth, every 8 hours x 2 days, take 1 tablet by mouth, every 8 hours x 2 days, take 1 tablet by mouth, every 8 hours prn Famotidine 20 Mg Tablet 20 Mg PO BID 14 Days Mag-Al Plus Xs Suspension (Mag Hydrox/Al Hydrox/Simeth) 30 Ml Oral.susp 30 Ml PO PRN Q3HRS PRN 14 Days Lactulose 20 Gm/30 Ml Solution 20 Gm PO PRN Q12HR PRN 14 Days [Folic Acid] 1 MG Tablet 1 Mg PO DAILY 30 Days Vitamin B-1 (Thiamine Mononitrate) 100 Mg Tablet 100 Mg PO DAILY 30 Days Gabapentin (Gabapentin) 300 Mg Capsule 300 Mg PO TID 90 Days Catapres (Clonidine Hcl) 0.1 Mg Tablet 0.1 Mg PO Q8HRS 14 Days Allergies Allergies: Coded Allergies: No Known Drug Allergies (Unverified , 03/20/19) ROS Review of System Unable to accurately complete due to patient confusion. He denies any complaints General: No: Chills, Night Sweats, Fatigue, Malaise, Appetite, Other PSYCHOLOGICAL ROS: No: Anxiety, Behavioral Disorder, Concentration difficultie, Decreased libido, Depression, Disorientation, Hallucinations, Hostility, Irritablity, Memory difficulties, Mood Swings, Obsessive thoughts, Physical abuse, Sexual abuse, Sleep disturbances, Suicidal ideation, Other Eyes: No Blurry vision, No Decreased vision, No Double vision, No Dry eyes, No Excessive tearing, No Eye Pain, No Itchy Eyes, No Loss of vision, No Photophobia, No Scotomata, No Uses contacts, No Uses glasses, No Other HEENT: No: Heacaches, Visual Changes, Hearing change, Nasal congestion, Nasal discharge, Oral lesions, Sinus pain, Sore Throat, Epistaxis, Sneezing, Snoring, Tinnitus, Vertigo, Vocal changes, Other ALLERGY AND IMMUNOLOGY: No: Hives, Insect Bite Sensitivity, Itchy/Watery Eyes, Nasal Congestion, Post Nasal Drip, Seasonal Allergies, Other Hematological and Lymphatic: No: Bleeding Problems, Blood Clots, Blood Transfusions, Brusing, Night Sweats, Pallor, Swollen Lymph Nodes, Other ENDOCRINE: No: Breast Changes, Galactorrhea, Hair Pattern Changes, Hot Flashes, Malaise/lethargy, Mood Swings, Palpitations, Polydipsia/polyuria, Skin Changes, Temperature Intolerance, Unexpected Weight Changes, Other Breast: No New/Changing Breast Lumps, No Nipple changes, No Nipple discharge, No Other Respiratory: No: Cough, Hemoptysis, Orthopnea, Pleuritic Pain, Shortness of breath, SOB with excertion, Sputum Changes, Stridor, Tachypnea, Wheezing, Other Cardiovascular: No Chest Pain, No Palpitations, No Orthopnea, No Paroxysmal Noc. Dyspnea, No Edema, No Lt Headedness, No Other Gastrointestinal: No Nausea, No Vomiting, No Abdominal Pain, No Diarrhea, No Constipation, No Melena, No Hematochezia, No Other Genitourinary: No Dysuria, No Frequency, No Incontinence, No Hematuria, No Retention, No Discharge, No Urgency, No Pain, No Flank Pain, No Other, No , No , No , No , No , No , No Musculoskeletal: No Gait Disturbance, No Joint Pain, No Joint Stiffness, No Joint Swelling, No Muscle Pain, No Muscular Weakness, No Pain In:, No Swelling In:, No Other Neurological: No Behavorial Changes, No Bowel/Bladder ControlChng, No Confusion, No Dizziness, No Gait Disturbance, No Headaches, No Impaired Coord/balance, No Memory Loss, No Numbness/Tingling, No Seizures, No Speech Problems, No Tremors, No Visual Changes, No Weakness, No Other Skin: No Dry Skin, No Eczema, No Hair Changes, No Lumps, No Mole Changes, No Mottling, No Nail Changes, No Pruritus, No Rash, No Skin Lesion Changes, No Other, No Acne Physical Exam General: Cooperative, mild distress HEENT: Atraumatic, PERRLA, EOMI, Mucous membr. moist/pink Lungs: Clear to auscultation, Normal air movement Heart: S1S2, RRR, no thrills, no rubs, no gallops, no murmurs Abdomen: Normal bowel sounds, Soft, No tenderness, No hepatosplenomegaly, No masses Extremities: No clubbing, No cyanosis, No edema, Normal pulses, No tenderness/swelling Skin: No rashes, No breakdown, No significant lesion Neuro: Strength at 5/5 X4 ext, Normal tone, Sensation intact, Cranial nerves 3- 12 NL, Reflexes 2+ Psych/Mental Status: Other (Confused, post-ictal) Vitals Vitals Vital Signs Date Time Temp Pulse Resp B/P (MAP) Pulse Ox O2 Delivery O2 Flow Rate FiO2 01/30/21 15:17 98.7 115 16 166/103 (124) 98 98.7 VTE Prophylaxis Ordered VTE Prophylaxis Devices: No VTE Pharmacological Prophylaxi: Yes Assessment/Plan Assessment/Plan A/P: Acute seizure with alcohol withdrawal - seizure precautions, CIWA with ativan Alcohol use disorder - counseled. Currently does not want help, but he is confused Hypertension - prn clonidine Depression - cont home meds Delirium tremens - CIWA Dilated cardiomyopathy - alcohol related Metabolic encephalopathy , acute - due to alcohol withdrawal Lactic acidosis - due to seizure, will trend Transaminitis - likely alcohol related, will monitor Thrombocytopenia - likely ETOH related, will monitor FEN - ADAT PPX - lovenox FULL CODE Dispo -inpatient Justifications for Admission Other Justification Alcohol withdrawal, seizure DYAN SANDOVAL MD Jan 30, 2021 15:59
--- NOTE | 2021-01-30 16:01 | PHYS DOC ---
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 Patient has been seen for almost id entical presentation and several visits in the past. Today, he had a witnessed seizure lasting 30 seconds while at work. Patient denies head trauma or injury. Patient has no interest in rehabilitation. He denies all other complaints. Review of Systems: Review of Systems: Constitutional: Denies fever or chills. Eyes: Denies change in visual acuity or visual field deficits HENT: Denies nasal congestion or sore throat. Respiratory: Denies cough or shortness of breath. Cardiovascular: Denies chest pain or edema. GI: Denies abdominal pain, nausea, vomiting, bloody stools or diarrhea. : Denies dysuria or hematuria. Musculoskeletal: Denies back pain or joint pain. Integument: Denies rash or other skin lesions. Neurologic: See HPI Heart Score: C/O Chest Pain: No Current Medications: Current Medications Medications (Trade) Dose Ordered Sig/Jacqueline Start Time Stop Time Status Last Admin Dose Admin Lorazepam (Ativan Inj) 1 mg 1X ONCE 01/30/21 16:00 01/30/21 16:01 Allergies: Allergies: Allergies Coded Allergies Type Severity Reaction Last Updated Verified No Known Drug Allergies 03/20/19 No Physical Exam: PE: Constitutional: Well developed, well nourished, no acute distress, non-toxic appearance. HENT: Normocephalic, atraumatic, bilateral external ears normal, oropharynx moist, nose without obvious deformity or discharge. Eyes: PERRLA, EOMI, conjunctiva normal, no discharge. Neck: Normal range of motion, no tenderness, supple, no stridor. Cardiovascular: Heart rate elevated with regular, no murmur. Lungs & Thorax: Bilateral breath sounds clear to auscultation. Abdomen: Bowel sounds normal, soft, no tenderness, no masses, no pulsatile masses. Skin: Warm, dry, no erythema, no rash. Back: No step-offs, no midline tenderness. Extremities: No tenderness, no cyanosis, no clubbing, ROM intact, no edema. Neurologic: Alert and oriented x4, no focal deficits noted. Current Patient Data: Labs: Laboratory Tests Test 01/30/21 15:15 01/30/21 16:05 White Blood Count 7.4 x10^3/uL (4.0-11.0) Red Blood Count 4.76 x10^6/uL (4.30-5.70) Hemoglobin 13.3 g/dL (13.0-17.5) Hematocrit 42.7 % (39.0-53.0) Mean Corpuscular Volume 90 fL (79-100) Mean Corpuscular Hemoglobin 28 pg (25-35) Mean Corpuscular Hemoglobin Concent 31 g/dL (31-37) Red Cell Distribution Width 19.6 % (11.5-14.5) Platelet Count 112 x10^3/uL (140-400) Neutrophils (%) (Auto) 82 % (31-73) Lymphocytes (%) (Auto) 5 % (24-48) Monocytes (%) (Auto) 13 % (0-9) Eosinophils (%) (Auto) 0 % (0-3) Basophils (%) (Auto) 0 % (0-3) Neutrophils # (Auto) 6.0 x10^3/uL (1.8-7.7) Lymphocytes # (Auto) 0.4 x10^3/uL (1.0-4.8) Monocytes # (Auto) 0.9 x10^3/uL (0.0-1.1) Eosinophils # (Auto) 0.0 x10^3/uL (0.0-0.7) Basophils # (Auto) 0.0 x10^3/uL (0.0-0.2) Sodium Level 137 mmol/L (136-145) Potassium Level 3.6 mmol/L (3.5-5.1) Chloride Level 98 mmol/L (98-107) Carbon Dioxide Level 15 mmol/L (21-32) Anion Gap 24 (6-14) Blood Urea Nitrogen 10 mg/dL (8-26) Creatinine 1.3 mg/dL (0.7-1.3) Estimated GFR (Cockcroft-Gault) 56.9 BUN/Creatinine Ratio 8 (6-20) Glucose Level 144 mg/dL (70-99) Calcium Level 8.9 mg/dL (8.5-10.1) Total Bilirubin 1.0 mg/dL (0.2-1.0) Aspartate Amino Transf (AST/SGOT) 94 U/L (15-37) Alanine Aminotransferase (ALT/SGPT) 84 U/L (16-63) Alkaline Phosphatase 94 U/L (46-116) Total Protein 7.4 g/dL (6.4-8.2) Albumin 3.6 g/dL (3.4-5.0) Albumin/Globulin Ratio 0.9 (1.0-1.7) Ethyl Alcohol Level < 10 mg/dL (0-10) Lactic Acid Level 6.8 mmol/L (0.4-2.0) Vital Signs: Vital Signs Date Time Temp Pulse Resp B/P (MAP) Pulse Ox O2 Delivery O2 Flow Rate FiO2 01/30/21 15:17 98.7 115 16 166/103 (124) 98 98.7 Course & Med Decision Making: Course & Med Decision Making Pertinent Labs and Imaging studies reviewed. (See chart for details) Patient is well-known to the department for similar symptoms and presentation. Patient seizure today was witnessed, the patient experienced no head trauma. CT imaging will not be obtained after reviewing prior visits and work-ups. Lab work drawn. Ativan provided to patient. Patient will be admitted to hospitalist service for alcohol detoxification. Brayan Disclaimer: Brayan Disclaimer: This electronic medical record was generated, in whole or in part, using a voice recognition dictation system. Departure Departure Impression: Primary Impression: Alcohol withdrawal seizure Qualified Codes: F10.239 - Alcohol dependence with withdrawal, unspecified; R56.9 - Unspecified convulsions Additional Impression: Lactic acidosis Disposition: ADMITTED INPATIENT Admitting Physician: DOLORES (Gaurav) Condition: GUARDED Referrals: NO PCP (PCP) DAWN GUERRERO Jan 30, 2021 16:01
[2021-01-30 16:24] LABS: BASO % 0 % (0-3); CALCIUM 8.9 mg/dL (8.5-10.1); CREATININE 1.3 mg/dL (0.7-1.3); EOS % 0 % (0-3); GFR 56.9; HEMATOCRIT 42.7 % (39.0-53.0); HEMOGLOBIN 13.3 g/dL (13.0-17.5); LYMPH # 0.4 x10^3/uL (1.0-4.8); LYMPH % 5 % (24-48); MEAN CORPUSCULAR HEMOGLOBIN 28 pg (25-35); MEAN CORPUSCULAR HGB CONC 31 g/dL (31-37); MEAN CORPUSCULAR VOLUME 90 fL (79-100); MONO # 0.9 x10^3/uL (0.0-1.1); MONO % 13 % (0-9); NEUT % 82 % (31-73); PLATELET COUNT 112 x10^3/uL (140-400); POTASSIUM 3.6 mmol/L (3.5-5.1); RED BLOOD COUNT 4.76 x10^6/uL (4.30-5.70); RED CELL DISTRIBUTION WIDTH 19.6 % (11.5-14.5); WHITE BLOOD COUNT 7.4 x10^3/uL (4.0-11.0)
[2021-01-30 16:41] LABS: ALBUMIN 3.6 g/dL (3.4-5.0); ALBUMIN/GLOBULIN RATIO 0.9 (1.0-1.7); TOTAL PROTEIN 7.4 g/dL (6.4-8.2)
[2021-01-30 17:06] LABS: BILIRUBIN,URINE SMALL (NEG); CLARITY,URINE CLOUDY; COLOR,URINE AMBER; NITRITE,URINE NEGATIVE (NEG); PROTEIN,URINE 100 mg/dL (NEG-TRACE)
[2021-01-30 17:15] LABS: BARBITURATES NEG (NEG); BENZODIAZEPINES NEG (NEG); CANNABINOIDS NEG (NEG); COCAINE NEG (NEG); METHADONE NEG (NEG); OPIATES NEG (NEG); PHENCYCLIDINE NEG (NEG)
[2021-01-30] MEDS ORDERED: ONDANSETRON PF 4 MG/2 ML VIAL. IVP PRN (17:15)
[2021-01-30 17:16] LABS: AMPHETAMINE/METHAMPHETAMINE NEG (NEG)
[2021-01-30 17:22] LABS: BACTERIA,URINE FEW /HPF (0-FEW)
[2021-01-30 17:23] LABS: HYALINE CASTS, URINE FEW /HPF; RBC,URINE 0 /HPF (0-2)
[2021-01-30] MEDS ORDERED: LACTULOSE 20 GM/30 ML SOLUTION. PO PRN (17:45)
[2021-01-30 19:20] VITALS: BP 160/99
[2021-01-30] MEDS: FAMOTIDINE 20 MG TABLET. PO SCH (21:27)
[2021-01-30] MEDS: GABAPENTIN 300 MG CAPSULE. PO SCH (21:27)
[2021-01-30] MEDS: cloNIDine HCL 0.1 MG TABLET PO SCH (21:32)
[2021-01-30 23:00] VITALS: BP 142/100
[2021-01-31 03:00] VITALS: BP 140/100
[2021-01-31] MEDS ORDERED: guaiFENesin DM 200MG/20MG 10 ML SYRUP PO PRN (03:00)
[2021-01-31] MEDS ORDERED: ACETAMINOPHEN 325 MG TABLET. PO PRN (03:00)
[2021-01-31] MEDS: cloNIDine HCL 0.1 MG TABLET PO SCH ×2 (05:17→13:34)
[2021-01-31 06:29] LABS: ALBUMIN 2.9 g/dL (3.4-5.0); ALBUMIN/GLOBULIN RATIO 0.8 (1.0-1.7); CALCIUM 8.2 mg/dL (8.5-10.1); CREATININE 0.7 mg/dL (0.7-1.3); GFR 116.2; MAGNESIUM 1.9 mg/dL (1.8-2.4); TOTAL BILIRUBIN 1.2 mg/dL (0.2-1.0); TOTAL PROTEIN 6.5 g/dL (6.4-8.2)
[2021-01-31 07:00] VITALS: BP 146/86
[2021-01-31] MEDS: GABAPENTIN 300 MG CAPSULE. PO SCH ×2 (07:51→13:34)
[2021-01-31] MEDS: FAMOTIDINE 20 MG TABLET. PO SCH (07:51)
[2021-01-31] MEDS ORDERED: THIAMINE 100 MG TABLET. PO SCH (09:00)
[2021-01-31] MEDS ORDERED: FOLIC ACID 1 MG TABLET. PO SCH (09:00)
--- NOTE | 2021-01-31 10:28 | NUR ---
SW following. Discussed with RN, pt from home, room air, regular diet. PAT consult for ETOH. RN advised no other SW needs at this time. SW will continue to follow.
[2021-01-31 11:00] VITALS: BP 127/70
[2021-01-31 15:00] VITALS: BP 131/72
[2021-01-31] MEDS ORDERED: CLON0.1T PO (16:15)
[2021-01-31] MEDS ORDERED: GABA300C18 PO (16:15)
--- NOTE | 2021-01-31 16:19 | PDOC ---
[employer] PROGRESS NOTE Date of Service DOS: DATE: 01/31/21 TIME: 16:18 Chief Complaint Chief Complaint Acute seizure with alcohol withdrawal - outside withdrawal window, restart gabapentin at home Alcohol use disorder - counseled. Currently does not want help Hypertension - prn clonidine Depression - cont home meds Delirium tremens - CIWA Dilated cardiomyopathy - alcohol related Metabolic encephalopathy , acute - due to alcohol withdrawal Lactic acidosis - due to seizure Transaminitis - likely alcohol related Thrombocytopenia - likely ETOH related History of Present Illness History of Present Illness Mr Lozada is a 55-year-old male past medical history of alcohol abuse, who presented to the ER after reportedly having an alcohol withdrawal seizure today witnessed at work. Seizure was reportedly witnessed and he did not strike his head per bystanders and came to ER for treatment of withdrawal symptoms. hx admitted multiple times for alcohol withdrawal and seizures. Stated he drinks around 1 pint of vodka daily his last drink was more than a day ago. He sometimes drinks beers as well. Still very confused during examination, falling asleep frequently. Did receive ativan. No seizure activity noted in ED. Labs with WBC 7.4, Hb 13.3, platelets one hundred twelve, NA 137, K3.6, lactic acid 6.8, anion gap twenty-four, BUN ten, CR 1.3, glucose one hundred forty- four, calcium 8.9, bilirubin one, AST ninety-four, NA ALT eighty-four, alkaline phosphatase ninety-four, albumin 3.6, urine drug screen negative alcohol zero, urinalysis bland. Admitted for further care. 01/31: Over the last 24 hours required less and less Ativan and has not had Ativan for over 8 hours. Notes his last drink was 5 days ago and he wishes to go home with the care of his he can restart gabapentin and clonidine and refuses to meet with psychiatric assessment team for addiction resources as he already has these Vitals/I&O Vitals/I&O: Vital Signs Date Time Temp Pulse Resp B/P (MAP) Pulse Ox O2 Delivery O2 Flow Rate FiO2 01/31/21 15:00 97.8 68 16 131/72 (91) 94 Room Air 97.8 01/30/21 20:10 2.0 I & O 01/30/21 01/30/21 01/31/21 15:00 23:00 07:00 Intake Total 120 ml Output Total 300 ml Balance 120 ml -300 ml Physical Exam General: Cooperative, mild distress Lungs: Clear Abdomen: Normal bowel sounds, Soft, No tenderness, No hepatosplenomegaly, No masses Extremities: No clubbing, No cyanosis, No edema, Normal pulses, No tenderness/swelling Skin: No rashes, No breakdown, No significant lesion Labs Labs: Laboratory Tests Test 01/30/21 16:55 01/30/21 21:10 01/31/21 04:20 Urine Collection Type Unknown Urine Color [place] Urine Clarity Cloudy Urine pH 6.0 (<5.0-8.0) Urine Specific [place] 1.025 (1.000-1.030) Urine Protein 100 mg/dL (NEG-TRACE) Urine Glucose (UA) Negative mg/dL (NEG) Urine Ketones (Stick) Trace mg/dL (NEG) Urine Blood Trace (NEG) Urine Nitrite Negative (NEG) Urine Bilirubin Small (NEG) Urine Urobilinogen Dipstick 1.0 mg/dL (0.2 mg/dL) Urine Leukocyte Esterase Small (NEG) Urine RBC 0 /HPF (0-2) Urine WBC 1-4 /HPF (0-4) Urine Squamous Epithelial Cells Occ /LPF Urine Bacteria Few /HPF (0-FEW) Urine Hyaline Casts Few /HPF Urine Mucus Mod /LPF Urine Opiates Screen Neg (NEG) Urine Methadone Screen Neg (NEG) Urine Barbiturates Neg (NEG) Urine Phencyclidine Screen Neg (NEG) Urine Amphetamine/Methamphetamine Neg (NEG) Urine Benzodiazepines Screen Neg (NEG) Urine Cocaine Screen Neg (NEG) Urine Cannabinoids Screen Neg (NEG) Urine Ethyl Alcohol Neg (NEG) Lactic Acid Level 1.6 mmol/L (0.4-2.0) Sodium Level 139 mmol/L (136-145) Potassium Level 3.0 mmol/L (3.5-5.1) Chloride Level 102 mmol/L (98-107) Carbon Dioxide Level 24 mmol/L (21-32) Anion Gap 13 (6-14) Blood Urea Nitrogen 8 mg/dL (8-26) Creatinine 0.7 mg/dL (0.7-1.3) Estimated GFR (Cockcroft-Gault) 116.2 BUN/Creatinine Ratio 11 (6-20) Glucose Level 82 mg/dL (70-99) Calcium Level 8.2 mg/dL (8.5-10.1) Magnesium Level 1.9 mg/dL (1.8-2.4) Total Bilirubin 1.2 mg/dL (0.2-1.0) Aspartate Amino Transf (AST/SGOT) 106 U/L (15-37) Alanine Aminotransferase (ALT/SGPT) 80 U/L (16-63) Alkaline Phosphatase 80 U/L (46-116) Total Protein 6.5 g/dL (6.4-8.2) Albumin 2.9 g/dL (3.4-5.0) Albumin/Globulin Ratio 0.8 (1.0-1.7) Assessment and Plan Assessmemt and Plan Problems Medical Problems: (1) Alcohol withdrawal seizure Status: Acute (2) Lactic acidosis Status: Acute Comment Review of Relevant I have reviewed the following items lana (where applicable) has been applied. Medications: Current Medications Medications (Trade) Dose Ordered Sig/Jacqueline Route PRN Reason Start Time Stop Time Status Last Admin Dose Admin Lorazepam (Ativan Inj) 2 mg PRN Q1HR PRN IV For CIWA 8-14 01/30/21 17:15 01/31/21 05:18 Clonidine HCl (Catapres) 0.1 mg Q8HRS PO 01/30/21 22:00 01/31/21 13:34 Famotidine (Pepcid) 20 mg BID PO 01/30/21 21:00 01/31/21 07:51 Gabapentin (Neurontin) 300 mg TID PO 01/30/21 21:00 01/31/21 13:34 Thiamine Mononitrate (Vitamin B-1) 100 mg DAILY PO 01/31/21 09:00 01/31/21 07:51 Folic Acid (Folic Acid) 1 mg DAILY PO 01/31/21 09:00 01/31/21 07:51 Justifications for Admission Other Justification Alcohol withdrawal, seizure DYAN SANDOVAL MD Jan 31, 2021 16:19
--- NOTE | 2021-01-31 16:21 | PDOC3 ---
Discharge Summary Visit Information Date of Admission: Jan 30, 2021 Date of Discharge: Jan 31, 2021 Admitting Diagnosis: Alcohol withdrawal seizure Final Diagnosis Problems Medical Problems: (1) Alcohol withdrawal seizure Status: Acute (2) Lactic acidosis Status: Acute Brief Hospital Course Allergies Allergies Coded Allergies Type Severity Reaction Last Updated Verified No Known Drug Allergies 03/20/19 No Vital Signs Vital Signs Date Time Temp Pulse Resp B/P (MAP) Pulse Ox O2 Delivery O2 Flow Rate FiO2 01/31/21 15:00 97.8 68 16 131/72 (91) 94 Room Air 97.8 01/30/21 20:10 2.0 Lab Results Laboratory Tests Test 01/30/21 15:15 01/30/21 16:05 01/30/21 16:55 01/30/21 21:10 White Blood Count 7.4 x10^3/uL (4.0-11.0) Red Blood Count 4.76 x10^6/uL (4.30-5.70) Hemoglobin 13.3 g/dL (13.0-17.5) Hematocrit 42.7 % (39.0-53.0) Mean Corpuscular Volume 90 fL (79-100) Mean Corpuscular Hemoglobin 28 pg (25-35) Mean Corpuscular Hemoglobin Concent 31 g/dL (31-37) Red Cell Distribution Width 19.6 % (11.5-14.5) Platelet Count 112 x10^3/uL (140-400) Neutrophils (%) (Auto) 82 % (31-73) Lymphocytes (%) (Auto) 5 % (24-48) Monocytes (%) (Auto) 13 % (0-9) Eosinophils (%) (Auto) 0 % (0-3) Basophils (%) (Auto) 0 % (0-3) Neutrophils # (Auto) 6.0 x10^3/uL (1.8-7.7) Lymphocytes # (Auto) 0.4 x10^3/uL (1.0-4.8) Monocytes # (Auto) 0.9 x10^3/uL (0.0-1.1) Eosinophils # (Auto) 0.0 x10^3/uL (0.0-0.7) Basophils # (Auto) 0.0 x10^3/uL (0.0-0.2) Sodium Level 137 mmol/L (136-145) Potassium Level 3.6 mmol/L (3.5-5.1) Chloride Level 98 mmol/L (98-107) Carbon Dioxide Level 15 mmol/L (21-32) Anion Gap 24 (6-14) Blood Urea Nitrogen 10 mg/dL (8-26) Creatinine 1.3 mg/dL (0.7-1.3) Estimated GFR (Cockcroft-Gault) 56.9 BUN/Creatinine Ratio 8 (6-20) Glucose Level 144 mg/dL (70-99) Calcium Level 8.9 mg/dL (8.5-10.1) Total Bilirubin 1.0 mg/dL (0.2-1.0) Aspartate Amino Transf (AST/SGOT) 94 U/L (15-37) Alanine Aminotransferase (ALT/SGPT) 84 U/L (16-63) Alkaline Phosphatase 94 U/L (46-116) Total Protein 7.4 g/dL (6.4-8.2) Albumin 3.6 g/dL (3.4-5.0) Albumin/Globulin Ratio 0.9 (1.0-1.7) Ethyl Alcohol Level < 10 mg/dL (0-10) Lactic Acid Level 6.8 mmol/L (0.4-2.0) 1.6 mmol/L (0.4-2.0) Urine Collection Type Unknown Urine Color [place] Urine Clarity Cloudy Urine pH 6.0 (<5.0-8.0) Urine Specific [place] 1.025 (1.000-1.030) Urine Protein 100 mg/dL (NEG-TRACE) Urine Glucose (UA) Negative mg/dL (NEG) Urine Ketones (Stick) Trace mg/dL (NEG) Urine Blood Trace (NEG) Urine Nitrite Negative (NEG) Urine Bilirubin Small (NEG) Urine Urobilinogen Dipstick 1.0 mg/dL (0.2 mg/dL) Urine Leukocyte Esterase Small (NEG) Urine RBC 0 /HPF (0-2) Urine WBC 1-4 /HPF (0-4) Urine Squamous Epithelial Cells Occ /LPF Urine Bacteria Few /HPF (0-FEW) Urine Hyaline Casts Few /HPF Urine Mucus Mod /LPF Urine Opiates Screen Neg (NEG) Urine Methadone Screen Neg (NEG) Urine Barbiturates Neg (NEG) Urine Phencyclidine Screen Neg (NEG) Urine Amphetamine/Methamphetamine Neg (NEG) Urine Benzodiazepines Screen Neg (NEG) Urine Cocaine Screen Neg (NEG) Urine Cannabinoids Screen Neg (NEG) Urine Ethyl Alcohol Neg (NEG) Test 01/31/21 04:20 Sodium Level 139 mmol/L (136-145) Potassium Level 3.0 mmol/L (3.5-5.1) Chloride Level 102 mmol/L (98-107) Carbon Dioxide Level 24 mmol/L (21-32) Anion Gap 13 (6-14) Blood Urea Nitrogen 8 mg/dL (8-26) Creatinine 0.7 mg/dL (0.7-1.3) Estimated GFR (Cockcroft-Gault) 116.2 BUN/Creatinine Ratio 11 (6-20) Glucose Level 82 mg/dL (70-99) Calcium Level 8.2 mg/dL (8.5-10.1) Magnesium Level 1.9 mg/dL (1.8-2.4) Total Bilirubin 1.2 mg/dL (0.2-1.0) Aspartate Amino Transf (AST/SGOT) 106 U/L (15-37) Alanine Aminotransferase (ALT/SGPT) 80 U/L (16-63) Alkaline Phosphatase 80 U/L (46-116) Total Protein 6.5 g/dL (6.4-8.2) Albumin 2.9 g/dL (3.4-5.0) Albumin/Globulin Ratio 0.8 (1.0-1.7) Laboratory Tests Test 01/30/21 16:55 01/30/21 21:10 01/31/21 04:20 Urine Collection Type Unknown Urine Color [place] Urine Clarity Cloudy Urine pH 6.0 (<5.0-8.0) Urine Specific [place] 1.025 (1.000-1.030) Urine Protein 100 mg/dL (NEG-TRACE) Urine Glucose (UA) Negative mg/dL (NEG) Urine Ketones (Stick) Trace mg/dL (NEG) Urine Blood Trace (NEG) Urine Nitrite Negative (NEG) Urine Bilirubin Small (NEG) Urine Urobilinogen Dipstick 1.0 mg/dL (0.2 mg/dL) Urine Leukocyte Esterase Small (NEG) Urine RBC 0 /HPF (0-2) Urine WBC 1-4 /HPF (0-4) Urine Squamous Epithelial Cells Occ /LPF Urine Bacteria Few /HPF (0-FEW) Urine Hyaline Casts Few /HPF Urine Mucus Mod /LPF Urine Opiates Screen Neg (NEG) Urine Methadone Screen Neg (NEG) Urine Barbiturates Neg (NEG) Urine Phencyclidine Screen Neg (NEG) Urine Amphetamine/Methamphetamine Neg (NEG) Urine Benzodiazepines Screen Neg (NEG) Urine Cocaine Screen Neg (NEG) Urine Cannabinoids Screen Neg (NEG) Urine Ethyl Alcohol Neg (NEG) Lactic Acid Level 1.6 mmol/L (0.4-2.0) Sodium Level 139 mmol/L (136-145) Potassium Level 3.0 mmol/L (3.5-5.1) Chloride Level 102 mmol/L (98-107) Carbon Dioxide Level 24 mmol/L (21-32) Anion Gap 13 (6-14) Blood Urea Nitrogen 8 mg/dL (8-26) Creatinine 0.7 mg/dL (0.7-1.3) Estimated GFR (Cockcroft-Gault) 116.2 BUN/Creatinine Ratio 11 (6-20) Glucose Level 82 mg/dL (70-99) Calcium Level 8.2 mg/dL (8.5-10.1) Magnesium Level 1.9 mg/dL (1.8-2.4) Total Bilirubin 1.2 mg/dL (0.2-1.0) Aspartate Amino Transf (AST/SGOT) 106 U/L (15-37) Alanine Aminotransferase (ALT/SGPT) 80 U/L (16-63) Alkaline Phosphatase 80 U/L (46-116) Total Protein 6.5 g/dL (6.4-8.2) Albumin 2.9 g/dL (3.4-5.0) Albumin/Globulin Ratio 0.8 (1.0-1.7) Brief Hospital Course Mr Lozada is a 55-year-old male past medical history of alcohol abuse, who pres ented to the ER after reportedly having an alcohol withdrawal seizure today witnessed at work. Seizure was reportedly witnessed and he did not strike his head per bystanders and came to ER for treatment of withdrawal symptoms. hx admitted multiple times for alcohol withdrawal and seizures. Stated he drinks around 1 pint of vodka daily his last drink was more than a day ago. He so metimes drinks beers as well. Still very confused during examination, falling asleep frequently. Did receive ativan. No seizure activity noted in ED. Labs with WBC 7.4, Hb 13.3, platelets one hundred twelve, NA 137, K3.6, lactic acid 6.8, anion gap twenty-four, BUN ten, CR 1.3, glucose one hundred forty- four, calcium 8.9, bilirubin one, AST ninety-four, NA ALT eighty-four, alkaline phosphatase ninety-four, albumin 3.6, urine drug screen negative alcohol zero, urinalysis bland. Admitted for further care. 01/31: Over the last 24 hours required less and less Ativan and has not had Ativan for over 8 hours. Notes his last drink was 5 days ago and he wishes to go home with the care of his he can restart gabapentin and clonidine and refuses to meet with psychiatric assessment team for addiction resources as he already has these Problem list: Acute seizure with alcohol withdrawal - outside withdrawal window, restart gabapentin at home Alcohol use disorder - counseled. Currently does not want help Hypertension - prn clonidine Depression - cont home meds Delirium tremens - CIWA Dilated cardiomyopathy - alcohol related Metabolic encephalopathy , acute - due to alcohol withdrawal Lactic acidosis - due to seizure Transaminitis - likely alcohol related Thrombocytopenia - likely ETOH related Greater than 30 minutes spent on d/c home with self care. Discharge Information Condition at Discharge: Improved Follow Up: Weeks (1) Disposition/Orders: D/C to Home Scheduled Clonidine Hcl (Clonidine Hcl) 0.1 Mg Tablet, 0.1 MG PO Q8HRS for Alcohol withdrawal for 14 Days, #42 Prescribed by: DYAN SANDOVAL MD on 01/31/21 1615 Famotidine (Famotidine) 20 Mg Tablet, 20 MG PO BID for GERD for 14 Days, #28 Prescribed by: CEDRIC EAGLE MD on 08/17/20 1917 Last Action: Continued on 01/30/21 1743 by DYAN SANDOVAL MD Gabapentin (Gabapentin ) 300 Mg Capsule, 300 MG PO TID for NEUROGENIC PAIN/Alcohol withdr for 90 Days, #270 Ref 2 Prescribed by: DYAN SANDOVAL MD on 01/31/21 1615 Thiamine Mononitrate (Vitamin B-1) 100 Mg Tablet, 100 MG PO DAILY for supplement for 30 Days, #30 Ref 2 Prescribed by: LATANYA LÓPEZ MD on 03/30/20953 Last Action: Continued on 01/30/211742 by DYAN SANDOVAL MD [Folic Acid] 1 MG TABLET, 1 MG PO DAILY for supplement for 30 Days, #30 Prescribed by: LATANYA LÓPEZ MD on 03/30/20953 Last Action: Converted on 01/30/211742 by DYAN SANDOVAL MD Scheduled PRN Lactulose (Lactulose) 20 Gm/30 Ml Solution, 20 GM PO PRN Q12HR PRN for CONSTIPATION for 14 Days, #120 Prescribed by: CEDRIC EAGLE MD on 08/17/201916 Last Action: Continued on 01/30/211742 by DYAN SANDOVAL MD Mag Hydrox/Al Hydrox/Simeth (Mag-Al Plus Xs Suspension) 30 Ml Oral.susp, 30 ML PO PRN Q3HRS PRN for HEARTBURN / GAS, 2ND CHOICE for 14 Days, #120 Prescribed by: CEDRIC EAGLE MD on 08/17/201916 Discontinued Medications Chlordiazepoxide Hcl (Chlordiazepoxide Hcl) 25 Mg Capsule, 25 MG PO PRN PRN for WITHDRAWAL IRRITABILITY MDD 300 mg/daily, #30 take 2 tablets by mouth, every 8 hours x 2 days, take 1 tablet by mouth, every 8 hours x 2 days, take 1 tablet by mouth, every 8 hours prn Prescribed by: ARTURO LIM DO on 11/20/201832 Clonidine Hcl (Catapres) 0.1 Mg Tablet, 0.1 MG PO Q8HRS for Alcohol withdrawal for 14 Days, #42 Prescribed by: DYAN SANDOVAL MD on 12/23/19 1220 Last Action: Continued on 01/30/211742 by DYAN SANDOVAL MD Justicifation of Admission Dx: Justifications for Admission: Justification of Admission Dx: N/A DYAN SANDOVAL MD Jan 31, 2021 16:21
[2021-01-31] MEDS ORDERED: POTASSIUM CHLORIDE 20 MEQ TABLET.ER. PO ONE ×2 (16:30→18:30)
--- NOTE | 2021-01-31 17:40 | NUR ---
Patient received discharge instructions, IV was removed, and patient taken by wheelchair to car with
== END 2021-01-31 17:30 | disposition home or self-care (01) | DRG 896 ==
LOC: ER 14:59 → 4 NORTH 17:12
PROVIDERS: ADMIT Internal Medicine; ATTEND Internal Medicine
DX: F10.231 Alcohol dependence with withdrawal delirium (principal); G93.41 Metabolic encephalopathy; I42.0 Dilated cardiomyopathy; D69.6 Thrombocytopenia, unspecified; E11.9 Type 2 diabetes mellitus without complications; F32.A Depression, unspecified; I10 Essential (primary) hypertension; I25.10 Atherosclerotic heart disease of native coronary artery without angina pectoris; R56.9 Unspecified convulsions; Z82.49 Family history of ischemic heart disease and other diseases of the circulatory system; D50.9 Iron deficiency anemia, unspecified; K57.90 Diverticulosis of intestine, part unspecified, without perforation or abscess without bleeding; M19.90 Unspecified osteoarthritis, unspecified site; R74.01 Elevation of levels of liver transaminase levels
CPT/HCPCS: 36415; 80053; 80307; 81001; 83605; 83735; 85025; 87086; G0480; J2060; 99285-25; G0378

== ENCOUNTER 2021-03-31 12:32 | Inpatient (IN) | payer BC ==
[~2021-03-31] VITALS: Ht 177.8 cm; Wt 88.6 kg
[2021-03-31] MEDS ORDERED: IV NORMAL SALINE 1000ML BAG 1,000 ML IV ONE (12:45)
[2021-03-31] MEDS ORDERED: PRENATAL MULTIVITAMIN TABLET. PO ONE (12:45)
[2021-03-31 12:58] LABS: BASO # 0.1 x10^3/uL (0.0-0.2); BASO % 2 % (0-3); EOS % 0 % (0-3); HEMATOCRIT 46.1 % (39.0-53.0); HEMOGLOBIN 14.4 g/dL (13.0-17.5); LYMPH # 1.3 x10^3/uL (1.0-4.8); LYMPH % 23 % (24-48); MEAN CORPUSCULAR HEMOGLOBIN 28 pg (25-35); MEAN CORPUSCULAR HGB CONC 31 g/dL (31-37); MEAN CORPUSCULAR VOLUME 90 fL (79-100); MONO % 19 % (0-9); NEUT # 3.1 x10^3/uL (1.8-7.7); NEUT % 56 % (31-73); PLATELET COUNT 176 x10^3/uL (140-400); RED BLOOD COUNT 5.14 x10^6/uL (4.30-5.70); RED CELL DISTRIBUTION WIDTH 21.2 % (11.5-14.5); WHITE BLOOD COUNT 5.4 x10^3/uL (4.0-11.0)
[2021-03-31] MEDS ORDERED: THIAMINE INJ 500 MG in IV DEXTROSE 5% 50 ML IV SCH (13:00)
[2021-03-31] MEDS ORDERED: ONDANSETRON PF 4 MG/2 ML VIAL. IVP ONE (13:00)
[2021-03-31 13:15] LABS: CALCIUM 8.6 mg/dL (8.5-10.1); POTASSIUM 4.1 mmol/L (3.5-5.1)
[2021-03-31 13:19] LABS: ALBUMIN 3.5 g/dL (3.4-5.0); ALBUMIN/GLOBULIN RATIO 0.8 (1.0-1.7); TOTAL BILIRUBIN 0.8 mg/dL (0.2-1.0); TOTAL PROTEIN 7.8 g/dL (6.4-8.2)
--- NOTE | 2021-03-31 13:40 | PHYS DOC ---
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 He has a history of recurrent presentations to the hospital and admissions for alcohol withdrawal seizures in the past. He presents for evaluation of a witnessed generalized 3-minute long seizure at home while laying on the couch prior to arrival. No injury sustained during the episode, which was witnessed. Last drink of alcohol was overnight per . Patient was postictal for EMS and is slightly confused upon arrival to the hospital but is able to answer questions, is oriented x4 and moves all extremities equally. He denies pain anywhere. He does not otherwise meaningfully contribute to history. He is tachycardic, hypertensive and tremulous. Review of Systems Review of Systems Review of systems limited by postictal state. Current Medications Current Medications Current Medications Medications (Trade) Dose Ordered Sig/Jacqueline Start Time Stop Time Status Last Admin Dose Admin Folic Acid (Folic Acid) 1 mg DAILY 04/05/21 09:00 Lorazepam (Ativan Inj) 2 mg 1X ONCE 03/31/21 13:30 03/31/21 13:31 DC Lorazepam (Ativan) 8 mg PRN Q1HR PRN 03/31/21 13:30 Multivitamins (Thera M Plus) 1 tab DAILY 04/05/21 09:00 Multivitamins 10 ml/Thiamine HCl 100 mg/Folic Acid 1 mg/Sodium Chloride 1,011.2 ml @ 100 mls/ hr DAILY 03/31/21 14:00 04/04/21 19:07 Ondansetron HCl (Zofran) 4 mg 1X ONCE 03/31/21 13:00 03/31/21 13:02 DC 03/31/21 13:14 4 MG Multivit/ Folic Acid/Iron (Multivitamin ) 1 tab ONCE ONCE 03/31/21 12:45 03/31/21 12:46 DC 03/31/21 13:14 1 TAB Sodium Chloride 1,000 ml @ 1,000 mls/hr 1X ONCE 03/31/21 12:45 03/31/21 13:44 03/31/21 12:51 1,000 MLS/HR Thiamine Mononitrate (Vitamin B-1) 100 mg DAILY 04/05/21 09:00 Thiamine HCl 500 mg/Dextrose 55 ml @ 102 mls/hr ONCE 03/31/21 13:00 Allergies Allergies Allergies Coded Allergies Type Severity Reaction Last Updated Verified No Known Drug Allergies 03/20/19 No Physical Exam Physical Exam Older male appearing nontoxic and in no acute distress, but tremulous. Head is normocephalic and atraumatic. Neck is supple and nontender. Oropharynx is moist. Lungs are clear to auscultation at all stations. There is a normal S1 and S2 without rubs or gallops and capillary refill is appropriate, less than 2 seconds globally. Abdomen is soft, nontender and nondistended. Skin is warm and dry without cyanosis, clubbing or edema. Psychiatrically, the patient demonstrates appropriate mood and affect and is alert. Evaluation of the extremities reveals BUEs and BLEs neurovascularly intact distally with strength out of 5, sensation intact light touch in all nerve distributions, radial, DP and PT pulses 2+ and equal bilaterally, capillary refill less than 2 seconds, hands and feet warm and well-perfused. Current Patient Data Vital Signs Vital Signs Date Time Temp Pulse Resp B/P (MAP) Pulse Ox O2 Delivery O2 Flow Rate FiO2 03/31/21 12:32 99.2 125 20 179/121 (140) 96 Room Air 99.2 Lab Values Laboratory Tests Test 03/31/21 12:40 White Blood Count 5.4 x10^3/uL (4.0-11.0) Red Blood Count 5.14 x10^6/uL (4.30-5.70) Hemoglobin 14.4 g/dL (13.0-17.5) Hematocrit 46.1 % (39.0-53.0) Mean Corpuscular Volume 90 fL (79-100) Mean Corpuscular Hemoglobin 28 pg (25-35) Mean Corpuscular Hemoglobin Concent 31 g/dL (31-37) Red Cell Distribution Width 21.2 % (11.5-14.5) H Platelet Count 176 x10^3/uL (140-400) Neutrophils (%) (Auto) 56 % (31-73) Lymphocytes (%) (Auto) 23 % (24-48) L Monocytes (%) (Auto) 19 % (0-9) H Eosinophils (%) (Auto) 0 % (0-3) Basophils (%) (Auto) 2 % (0-3) Neutrophils # (Auto) 3.1 x10^3/uL (1.8-7.7) Lymphocytes # (Auto) 1.3 x10^3/uL (1.0-4.8) Monocytes # (Auto) 1.0 x10^3/uL (0.0-1.1) Eosinophils # (Auto) 0.0 x10^3/uL (0.0-0.7) Basophils # (Auto) 0.1 x10^3/uL (0.0-0.2) Platelet Estimate Pending Sodium Level 142 mmol/L (136-145) Potassium Level 4.1 mmol/L (3.5-5.1) Chloride Level 101 mmol/L (98-107) Carbon Dioxide Level 16 mmol/L (21-32) L Anion Gap 25 (6-14) H Blood Urea Nitrogen 7 mg/dL (8-26) L Creatinine 1.0 mg/dL (0.7-1.3) Estimated GFR (Cockcroft-Gault) 77.0 BUN/Creatinine Ratio 7 (6-20) Glucose Level 140 mg/dL (70-99) H Calcium Level 8.6 mg/dL (8.5-10.1) Total Bilirubin 0.8 mg/dL (0.2-1.0) Aspartate Amino Transferase (AST) 302 U/L (15-37) H Alanine Aminotransferase (ALT) 154 U/L (16-63) H Alkaline Phosphatase 94 U/L (46-116) Total Protein 7.8 g/dL (6.4-8.2) Albumin 3.5 g/dL (3.4-5.0) Albumin/Globulin Ratio 0.8 (1.0-1.7) L Ethyl Alcohol Level 11 mg/dL (0-10) H Laboratory Tests 03/31/21 12:40 Laboratory Tests 03/31/21 12:40 EKG EKG [] Radiology/Procedures Radiology/Procedures [] Course & Med Decision Making Course & Med Decision Making Work-up as above. Patient has received 2 x 2 mg of IV Ativan, IV fluids, thiamine and a multivitamin and is resting much more comfortably. He remains tachycardic, tremulous and hypertensive however. Will require admission for alcohol withdrawal, as he has many times in the past. Will bring in for further care under the hospitalist; Dr. Salinas graciously accepts. Dragon Disclaimer Dragon Disclaimer This electronic medical record was generated, in whole or in part, using a voice recognition dictation system. Departure Departure Impression: Primary Impression: Alcohol related seizure Additional Impression: Alcohol withdrawal Disposition: ADMITTED INPATIENT Condition: STABLE Referrals: JARED MONTEMAYOR MD (PCP) Problem Qualifiers Additional Impression: Alcohol withdrawal Complication of substance-induced condition: uncomplicated Qualified Codes: F10.230 - Alcohol dependence with withdrawal, uncomplicated ANDREY BERMEO MD Mar 31, 2021 13:40
[2021-03-31] MEDS ORDERED: ONDANSETRON PF 4 MG/2 ML VIAL. IVP PRN ×2 (13:45→19:00)
[2021-03-31] MEDS: MULTIVIT INFUSN,ADULT 4,VIT K 10 ML, THIAMINE INJ 100 MG, FOLIC ACID INJ 1 MG in IV NOR... IV SCH (13:49)
[2021-03-31 14:44] LABS: % BANDS 1 % (0-9); % BASOS 1 % (0-3); % EOS 1 % (0-5); % LYMPHS 25 % (24-48); % MONOS 15 % (0-10); % SEGS 57 % (35-66)
[2021-03-31 14:45] LABS: MICROCYTOSIS SLIGHT; OVALOCYTES FEW; PLT ESTIMATE ADEQUATE (ADEQUATE); POIKILOCYTOSIS SLIGHT; POLYCHROMASIA SLIGHT
[2021-03-31 16:00] VITALS: BP 153/108
--- NOTE | 2021-03-31 16:00 | NUR ---
patient arrived to room 534 via ED stretcher transport. patient placed on 4L NC, telemetry (ST on monitor), and bedrails padded for seizure precautions. will continue to monitor.
--- NOTE | 2021-03-31 18:48 | PDOC1 ---
History and Physical Date of Service: DOS: DATE: 03/31/21 TIME: 18:44 Chief Complaint: Chief Complain: Alcohol withdrawal seizure History of Present Illness: HPI: Patient quite lethargic not providing much history thus HPI from ER The patient is a 55-year-old male with a history of hypertension as well as longstanding active daily alcohol abuse, currently drinking more than 1 pint per day. He has a history of recurrent presentations to the hospital and admissions for alcohol withdrawal seizures in the past. He presents for evaluation of a witnessed generalized 3-minute long seizure at home while laying on the couch prior to arrival. No injury sustained during the episode, which was witnessed. Last drink of alcohol was overnight per . Patient was postictal for EMS and is slightly confused upon arrival to the hospital but is able to answer questions, is oriented x4 and moves all extremities equally. He denies pain anywhere. He does not otherwise meaningfully contribute to history. 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 Smoking Status: Never Smoker Alcohol Use: Heavy Additional Information: DRINKS 1 PINT VODKA DAILY Drug Use: None Allergies: Allergies: Coded Allergies: No Known Drug Allergies (Unverified , 03/20/19) Family History: Family History: Unable to obtain from patient Current Medications: Current Medications Current Medications Lorazepam (Ativan Inj) 2 mg 1X ONCE IVP Last administered on 03/31/21at 12:57; Start 03/31/21 at 12:45; Stop 03/31/21 at 12:46; Status DC Thiamine HCl 500 mg/Dextrose 55 ml @ 102 mls/hr ONCE IV ; Start 03/31/21 at 13:00 Multivit/ Folic Acid/Iron (Multivitamin ) 1 tab ONCE ONCE PO Last administered on 03/31/21at 13:14; Start 03/31/21 at 12:45; Stop 03/31/21 at 12:46; Status DC Sodium Chloride 1,000 ml @ 1,000 mls/hr 1X ONCE IV Last administered on 03/31/21at 12:51; Start 03/31/21 at 12:45; Stop 03/31/21 at 13:44; Status DC Ondansetron HCl (Zofran) 4 mg 1X ONCE IVP Last administered on 03/31/21at 13:14; Start 03/31/21 at 13:00; Stop 03/31/21 at 13:02; Status DC Lorazepam (Ativan Inj) 2 mg 1X ONCE IVP Last administered on 03/31/21at 13:34; Start 03/31/21 at 13:30; Stop 03/31/21 at 13:31; Status DC Multivitamins 10 ml/Thiamine HCl 100 mg/Folic Acid 1 mg/Sodium Chloride 1,011.2 ml @ 100 mls/ hr DAILY IV Last administered on 03/31/21at 13:49; Start 03/31/21 at 14:00; Stop 04/04/21 at 19:07 Multivitamins (Thera M Plus) 1 tab DAILY PO ; Start 04/05/21 at 09:00 Folic Acid (Folic Acid) 1 mg DAILY PO ; Start 04/05/21 at 09:00 Thiamine Mononitrate (Vitamin B-1) 100 mg DAILY PO ; Start 04/05/21 at 09:00 Lorazepam (Ativan) 4 mg PRN Q1HR PRN PO For CIWA 8-14; Start 03/31/21 at 13:30 Lorazepam (Ativan) 8 mg PRN Q1HR PRN PO For CIWA 15 or greater; Start 03/31/21 at 13:30 Ondansetron HCl (Zofran) 4 mg PRN Q8HRS PRN IVP NAUSEA/VOMITING; Start 03/31/21 at 13:45; Stop 04/01/21 at 13:44 Active Scripts Active Clonidine Hcl 0.1 Mg Tablet 0.1 Mg PO Q8HRS 14 Days Gabapentin (Gabapentin) 300 Mg Capsule 300 Mg PO TID 90 Days Famotidine 20 Mg Tablet 20 Mg PO BID 14 Days Mag-Al Plus Xs Suspension (Mag Hydrox/Al Hydrox/Simeth) 30 Ml Oral.susp 30 Ml PO PRN Q3HRS PRN 14 Days Lactulose 20 Gm/30 Ml Solution 20 Gm PO PRN Q12HR PRN 14 Days [Folic Acid] 1 MG Tablet 1 Mg PO DAILY 30 Days Vitamin B-1 (Thiamine Mononitrate) 100 Mg Tablet 100 Mg PO DAILY 30 Days ROS: Review of Systems Review of System Patient very lethargic resting in bed unable to obtain reliable review of systems Physical Exam: Vital Signs: Vital Signs Date Time Temp Pulse Resp B/P (MAP) Pulse Ox O2 Delivery O2 Flow Rate FiO2 03/31/21 17:28 Nasal Cannula 4.0 03/31/21 15:33 114 20 156/105 (122) 97 03/31/21 12:32 99.2 99.2 Physcial Exam: GEN: No apparent distress. Very lethargic HEENT: Normal cephalic, atraumatic, external auditory canals are patent EYES: Extraocular muscles are intact, pupil are equally round and reactive to light and accommodation MUSCULOSKELETAL: Well developed , well nourished ENDOCRINE: No thyromegaly was palpated LYMPHATICS: No cervical chain or axillary nodes were noted HEMATOPOIETIC: No bruising NECK: Supple, no JVD, no thyromegaly was noted LUNGS: Clear to auscultation in all lung reno without rhonchi or wheezing HEART: RRR, S1, S2 present. Peripheral pulses intact, no obvious murmurs noted ABDOMEN: Soft, nontender. Positive bowel sounds, no organomegaly, normal bowel sounds EXTREMITIES: Without clubbing, cyanosis, or edema. Pedal pulses intact. Negative Homans sign NEUROLOGIC: Normal speech and tone. A&O x 3, moves all extremities, no obvious focal deficits PSYCHIATRIC: Normal affect, normal mood. Stable SKIN: No ulcerations or rashes, good skin turgor, no jaundice VASCULAR: Good capillary refill, neurovascular bundle appears to be intact Labs: Labs: Laboratory Tests Test 03/31/21 12:40 White Blood Count 5.4 x10^3/uL (4.0-11.0) Red Blood Count 5.14 x10^6/uL (4.30-5.70) Hemoglobin 14.4 g/dL (13.0-17.5) Hematocrit 46.1 % (39.0-53.0) Mean Corpuscular Volume 90 fL (79-100) Mean Corpuscular Hemoglobin 28 pg (25-35) Mean Corpuscular Hemoglobin Concent 31 g/dL (31-37) Red Cell Distribution Width 21.2 % (11.5-14.5) Platelet Count 176 x10^3/uL (140-400) Neutrophils (%) (Auto) 56 % (31-73) Lymphocytes (%) (Auto) 23 % (24-48) Monocytes (%) (Auto) 19 % (0-9) Eosinophils (%) (Auto) 0 % (0-3) Basophils (%) (Auto) 2 % (0-3) Neutrophils # (Auto) 3.1 x10^3/uL (1.8-7.7) Lymphocytes # (Auto) 1.3 x10^3/uL (1.0-4.8) Monocytes # (Auto) 1.0 x10^3/uL (0.0-1.1) Eosinophils # (Auto) 0.0 x10^3/uL (0.0-0.7) Basophils # (Auto) 0.1 x10^3/uL (0.0-0.2) Segmented Neutrophils % 57 % (35-66) Band Neutrophils % 1 % (0-9) Lymphocytes % 25 % (24-48) Monocytes % 15 % (0-10) Eosinophils % 1 % (0-5) Basophils % 1 % (0-3) Platelet Estimate Adequate (ADEQUATE) Polychromasia Slight Poikilocytosis Slight Microcytosis Slight Macrocytosis Slight Ovalocytes Few Sodium Level 142 mmol/L (136-145) Potassium Level 4.1 mmol/L (3.5-5.1) Chloride Level 101 mmol/L (98-107) Carbon Dioxide Level 16 mmol/L (21-32) Anion Gap 25 (6-14) Blood Urea Nitrogen 7 mg/dL (8-26) Creatinine 1.0 mg/dL (0.7-1.3) Estimated GFR (Cockcroft-Gault) 77.0 BUN/Creatinine Ratio 7 (6-20) Glucose Level 140 mg/dL (70-99) Calcium Level 8.6 mg/dL (8.5-10.1) Total Bilirubin 0.8 mg/dL (0.2-1.0) Aspartate Amino Transf (AST/SGOT) 302 U/L (15-37) Alanine Aminotransferase (ALT/SGPT) 154 U/L (16-63) Alkaline Phosphatase 94 U/L (46-116) Total Protein 7.8 g/dL (6.4-8.2) Albumin 3.5 g/dL (3.4-5.0) Albumin/Globulin Ratio 0.8 (1.0-1.7) Ethyl Alcohol Level 11 mg/dL (0-10) Laboratory Tests Test 03/31/21 12:40 White Blood Count 5.4 x10^3/uL (4.0-11.0) Red Blood Count 5.14 x10^6/uL (4.30-5.70) Hemoglobin 14.4 g/dL (13.0-17.5) Hematocrit 46.1 % (39.0-53.0) Mean Corpuscular Volume 90 fL (79-100) Mean Corpuscular Hemoglobin 28 pg (25-35) Mean Corpuscular Hemoglobin Concent 31 g/dL (31-37) Red Cell Distribution Width 21.2 % (11.5-14.5) Platelet Count 176 x10^3/uL (140-400) Neutrophils (%) (Auto) 56 % (31-73) Lymphocytes (%) (Auto) 23 % (24-48) Monocytes (%) (Auto) 19 % (0-9) Eosinophils (%) (Auto) 0 % (0-3) Basophils (%) (Auto) 2 % (0-3) Neutrophils # (Auto) 3.1 x10^3/uL (1.8-7.7) Lymphocytes # (Auto) 1.3 x10^3/uL (1.0-4.8) Monocytes # (Auto) 1.0 x10^3/uL (0.0-1.1) Eosinophils # (Auto) 0.0 x10^3/uL (0.0-0.7) Basophils # (Auto) 0.1 x10^3/uL (0.0-0.2) Segmented Neutrophils % 57 % (35-66) Band Neutrophils % 1 % (0-9) Lymphocytes % 25 % (24-48) Monocytes % 15 % (0-10) Eosinophils % 1 % (0-5) Basophils % 1 % (0-3) Platelet Estimate Adequate (ADEQUATE) Polychromasia Slight Poikilocytosis Slight Microcytosis Slight Macrocytosis Slight Ovalocytes Few Sodium Level 142 mmol/L (136-145) Potassium Level 4.1 mmol/L (3.5-5.1) Chloride Level 101 mmol/L (98-107) Carbon Dioxide Level 16 mmol/L (21-32) Anion Gap 25 (6-14) Blood Urea Nitrogen 7 mg/dL (8-26) Creatinine 1.0 mg/dL (0.7-1.3) Estimated GFR (Cockcroft-Gault) 77.0 BUN/Creatinine Ratio 7 (6-20) Glucose Level 140 mg/dL (70-99) Calcium Level 8.6 mg/dL (8.5-10.1) Total Bilirubin 0.8 mg/dL (0.2-1.0) Aspartate Amino Transf (AST/SGOT) 302 U/L (15-37) Alanine Aminotransferase (ALT/SGPT) 154 U/L (16-63) Alkaline Phosphatase 94 U/L (46-116) Total Protein 7.8 g/dL (6.4-8.2) Albumin 3.5 g/dL (3.4-5.0) Albumin/Globulin Ratio 0.8 (1.0-1.7) Ethyl Alcohol Level 11 mg/dL (0-10) Assessment/Plan Assessment/Plan Alcohol withdrawal seizure, history hypertension -Presenting after alcohol withdrawal seizure -Aggressive [facility] protocol. -Last drink was overnight not out of the window for worsening withdrawal -Treat hypertension as needed -Holding off home meds until can be clarified from the patient -PAT consult -Regular diet -DVT prophylaxis Justifications for Admission Other Justification Alcohol withdrawal, seizure DYAN BLAKE MD Mar 31, 2021 18:48
[2021-03-31 19:00] VITALS: BP 158/102
[2021-03-31] MEDS ORDERED: ACETAMINOPHEN 325 MG TABLET. PO PRN (19:00)
[2021-03-31] MEDS ORDERED: ELECTROLYTE (NON-ICU) PROTOCOL. MC PRN (19:00)
[2021-03-31] MEDS ORDERED: CALCIUM CARBONATE 500 MG TAB.CHEW PO PRN (19:00)
[2021-03-31] MEDS: SENNOSIDES/DOCUSATE 8.6/50MG TABLET. PO SCH (20:34)
[2021-03-31] MEDS: HEPARIN for SUB-Q USE 5,000 UNIT/ML VIAL. SQ SCH (20:36)
[2021-03-31] MEDS: hydrALAZINE 20 MG/ML VIAL. IVP PRN (21:26)
[2021-03-31 23:00] VITALS: BP 147/103
[2021-04-01 03:00] VITALS: BP 153/108
[2021-04-01] MEDS: hydrALAZINE 20 MG/ML VIAL. IVP PRN ×2 (03:18→20:33)
[2021-04-01 05:15] LABS: BASO # 0.1 x10^3/uL (0.0-0.2); BASO % 1 % (0-3); EOS % 0 % (0-3); HEMATOCRIT 47.5 % (39.0-53.0); HEMOGLOBIN 15.4 g/dL (13.0-17.5); LYMPH # 0.8 x10^3/uL (1.0-4.8); LYMPH % 14 % (24-48); MEAN CORPUSCULAR HEMOGLOBIN 29 pg (25-35); MEAN CORPUSCULAR HGB CONC 33 g/dL (31-37); MEAN CORPUSCULAR VOLUME 89 fL (79-100); MONO % 18 % (0-9); NEUT # 3.8 x10^3/uL (1.8-7.7); NEUT % 67 % (31-73); PLATELET COUNT 159 x10^3/uL (140-400); RED BLOOD COUNT 5.32 x10^6/uL (4.30-5.70); RED CELL DISTRIBUTION WIDTH 20.8 % (11.5-14.5); WHITE BLOOD COUNT 5.7 x10^3/uL (4.0-11.0)
[2021-04-01] MEDS: HEPARIN for SUB-Q USE 5,000 UNIT/ML VIAL. SQ SCH ×3 (05:30→20:34)
[2021-04-01 05:35] LABS: CALCIUM 8.9 mg/dL (8.5-10.1); CREATININE 0.9 mg/dL (0.7-1.3); POTASSIUM 3.8 mmol/L (3.5-5.1)
[2021-04-01 05:45] VITALS: BP 106/73
--- NOTE | 2021-04-01 06:05 | NUR ---
Dr. Salinas notified of pt's HR in the 130-140's. Awaiting orders.
[2021-04-01 07:00] VITALS: BP 111/77
[2021-04-01] MEDS: SENNOSIDES/DOCUSATE 8.6/50MG TABLET. PO SCH ×2 (08:44→20:32)
[2021-04-01] MEDS: MULTIVIT INFUSN,ADULT 4,VIT K 10 ML, THIAMINE INJ 100 MG, FOLIC ACID INJ 1 MG in IV NOR... IV SCH (08:45)
--- NOTE | 2021-04-01 10:15 | PDOC ---
[employer] PROGRESS NOTE Date of Service DOS: DATE: 04/01/21 TIME: 10:11 Chief Complaint Chief Complaint Alcohol withdrawal seizures Alcohol withdrawal Hx Hypertension History of Present Illness History of Present Illness Patient seen and examined bedside Patient still appears confused, attempted to get clarification on home meds and he simply stated "blood pressure" but could not recall medication name Discussed with RN Chart reviewed Vitals/I&O Vitals/I&O: Vital Signs Date Time Temp Pulse Resp B/P (MAP) Pulse Ox O2 Delivery O2 Flow Rate FiO2 04/01/21 07:00 99.2 139 18 111/77 (88) 91 Room Air 99.2 03/31/21 19:15 4.0 I & O 03/31/21 03/31/21 04/01/21 15:00 23:00 07:00 Intake Total 1000 ml 120 ml 1011.2 ml Output Total 650 ml 600 ml Balance 1000 ml -530 ml 411.2 ml Physical Exam General: Alert Lungs: Clear Labs Labs: Laboratory Tests Test 03/31/21 12:40 04/01/21 04:50 White Blood Count 5.4 x10^3/uL (4.0-11.0) 5.7 x10^3/uL (4.0-11.0) Red Blood Count 5.14 x10^6/uL (4.30-5.70) 5.32 x10^6/uL (4.30-5.70) Hemoglobin 14.4 g/dL (13.0-17.5) 15.4 g/dL (13.0-17.5) Hematocrit 46.1 % (39.0-53.0) 47.5 % (39.0-53.0) Mean Corpuscular Volume 90 fL (79-100) 89 fL (79-100) Mean Corpuscular Hemoglobin 28 pg (25-35) 29 pg (25-35) Mean Corpuscular Hemoglobin Concent 31 g/dL (31-37) 33 g/dL (31-37) Red Cell Distribution Width 21.2 % (11.5-14.5) 20.8 % (11.5-14.5) Platelet Count 176 x10^3/uL (140-400) 159 x10^3/uL (140-400) Neutrophils (%) (Auto) 56 % (31-73) 67 % (31-73) Lymphocytes (%) (Auto) 23 % (24-48) 14 % (24-48) Monocytes (%) (Auto) 19 % (0-9) 18 % (0-9) Eosinophils (%) (Auto) 0 % (0-3) 0 % (0-3) Basophils (%) (Auto) 2 % (0-3) 1 % (0-3) Neutrophils # (Auto) 3.1 x10^3/uL (1.8-7.7) 3.8 x10^3/uL (1.8-7.7) Lymphocytes # (Auto) 1.3 x10^3/uL (1.0-4.8) 0.8 x10^3/uL (1.0-4.8) Monocytes # (Auto) 1.0 x10^3/uL (0.0-1.1) 1.0 x10^3/uL (0.0-1.1) Eosinophils # (Auto) 0.0 x10^3/uL (0.0-0.7) 0.0 x10^3/uL (0.0-0.7) Basophils # (Auto) 0.1 x10^3/uL (0.0-0.2) 0.1 x10^3/uL (0.0-0.2) Segmented Neutrophils % 57 % (35-66) Band Neutrophils % 1 % (0-9) Lymphocytes % 25 % (24-48) Monocytes % 15 % (0-10) Eosinophils % 1 % (0-5) Basophils % 1 % (0-3) Platelet Estimate Adequate (ADEQUATE) Polychromasia Slight Poikilocytosis Slight Microcytosis Slight Macrocytosis Slight Ovalocytes Few Sodium Level 142 mmol/L (136-145) 139 mmol/L (136-145) Potassium Level 4.1 mmol/L (3.5-5.1) 3.8 mmol/L (3.5-5.1) Chloride Level 101 mmol/L (98-107) 100 mmol/L (98-107) Carbon Dioxide Level 16 mmol/L (21-32) 24 mmol/L (21-32) Anion Gap 25 (6-14) 15 (6-14) Blood Urea Nitrogen 7 mg/dL (8-26) 7 mg/dL (8-26) Creatinine 1.0 mg/dL (0.7-1.3) 0.9 mg/dL (0.7-1.3) Estimated GFR (Cockcroft-Gault) 77.0 87.0 BUN/Creatinine Ratio 7 (6-20) Glucose Level 140 mg/dL (70-99) 107 mg/dL (70-99) Calcium Level 8.6 mg/dL (8.5-10.1) 8.9 mg/dL (8.5-10.1) Total Bilirubin 0.8 mg/dL (0.2-1.0) Aspartate Amino Transf (AST/SGOT) 302 U/L (15-37) Alanine Aminotransferase (ALT/SGPT) 154 U/L (16-63) Alkaline Phosphatase 94 U/L (46-116) Total Protein 7.8 g/dL (6.4-8.2) Albumin 3.5 g/dL (3.4-5.0) Albumin/Globulin Ratio 0.8 (1.0-1.7) Ethyl Alcohol Level 11 mg/dL (0-10) Assessment and Plan Assessmemt and Plan Assessment Alcohol withdrawal seizure History hypertension History alcohol abuse Plan Presenting after alcohol withdrawal seizure Aggressive CIWA protocol. Last drink was 2/6 not out of the window for worsening withdrawal Treat hypertension as needed Cont. holding home meds until can be clarified PAT consult Regular diet DVT prophylaxis Full code Comment Review of Relevant I have reviewed the following items lana (where applicable) has been applied. Medications: Current Medications Medications (Trade) Dose Ordered Sig/Jacqueline Route PRN Reason Start Time Stop Time Status Last Admin Dose Admin Lorazepam (Ativan Inj) 2 mg 1X ONCE IVP 03/31/21 12:45 03/31/21 12:46 DC 03/31/21 12:57 Multivit/ Folic Acid/Iron (Multivitamin ) 1 tab ONCE ONCE PO 03/31/21 12:45 03/31/21 12:46 DC 03/31/21 13:14 Sodium Chloride 1,000 ml @ 1,000 mls/hr 1X ONCE IV 03/31/21 12:45 03/31/21 13:44 DC 03/31/21 12:51 Ondansetron HCl (Zofran) 4 mg 1X ONCE IVP 03/31/21 13:00 03/31/21 13:02 DC 03/31/21 13:14 Lorazepam (Ativan Inj) 2 mg 1X ONCE IVP 03/31/21 13:30 03/31/21 13:31 DC 03/31/21 13:34 Multivitamins 10 ml/Thiamine HCl 100 mg/Folic Acid 1 mg/Sodium Chloride 1,011.2 ml @ 100 mls/ hr DAILY IV 03/31/21 14:00 04/04/21 19:07 04/01/21 08:45 Lorazepam (Ativan) 4 mg PRN Q1HR PRN PO For CIWA 8-14 03/31/21 13:30 04/01/21 08:44 Senna/Docusate Sodium (Senna Plus) 1 tab BID PO 03/31/21 21:00 04/01/21 08:44 Heparin Sodium (Porcine) (Heparin Sodium) 5,000 unit Q8HRS SQ 03/31/21 22:00 04/01/21 05:30 Hydralazine HCl (Apresoline Inj) 10 mg PRN Q4HRS PRN IVP ELEVATED BP, SEE COMMENTS 03/31/21 21:30 04/01/21 03:18 Justifications for Admission Other Justification Alcohol withdrawal, seizure EMILY HOUSTON III DO Apr 01, 2021 10:15
[2021-04-01 11:00] VITALS: BP 128/94
--- NOTE | 2021-04-01 11:37 | NUR ---
SW following. Discussed with RN, pt from home with , room air, regular diet. PAT consulted for ETOH - awaiting outcome. SW will continue to follow.
--- NOTE | 2021-04-01 13:59 | NUR ---
Nurse's note: At 1230, this nurse was informed by the AUDIT PARTNER that the patient was on the floor. He was lying on his right side when she found him. Upon assessment, the patient was already back in bed. He was awake, confused, and agitated. VS BP 142/96 HR 138 RR 20. He was noted to have abrasions on his right elbow, right shoulder and right knee. The patient denies hitting his head and having pain from the fall. No deformities, additional injures were noted. The patient's bed was in the low position with the bed alarm on when the incident happened. Notified Dr. Govea and the patients at 1320 and 1331, respectively. Will notify the pump service supervisor. Fall assessment reviewed and interventions put in place.
[2021-04-01] MEDS ORDERED: HALOPERIDOL LACTATE 5 MG/ML VIAL. IVP PRN (14:15)
[2021-04-01] MEDS ORDERED: cloNIDine HCL 0.1 MG TABLET PO PRN (14:15)
[2021-04-01] MEDS ORDERED: diphenhydrAMINE 50 MG/ML VIAL IVP PRN (14:15)
[2021-04-01 15:00] VITALS: BP 133/93
[2021-04-01 19:00] VITALS: BP 142/102
[2021-04-02 03:30] VITALS: BP 135/89
[2021-04-02] MEDS: HEPARIN for SUB-Q USE 5,000 UNIT/ML VIAL. SQ SCH ×2 (05:36→14:01)
[2021-04-02 07:00] VITALS: BP 137/104
[2021-04-02] MEDS: SENNOSIDES/DOCUSATE 8.6/50MG TABLET. PO SCH (07:52)
--- NOTE | 2021-04-02 08:26 | PDOC ---
[employer] PROGRESS NOTE Date of Service DOS: DATE: 04/02/21 TIME: 08:24 Chief Complaint Chief Complaint Alcohol withdrawal seizures Alcohol withdrawal Hx Hypertension History of Present Illness History of Present Illness 04/02/2021 Patient seen and examined bedside Patient sitting upright in bed and feeling "a little dizzy" Patient admits some shakes this morning Patient says he feels ready to leave this afternoon after eating breakfast Discussed with RN Chart reviewed 04/01/2021 Patient seen and examined bedside Patient still appears confused, attempted to get clarification on home meds and he simply stated "blood pressure" but could not recall medication name Discussed with RN Chart reviewed Vitals/I&O Vitals/I&O: Vital Signs Date Time Temp Pulse Resp B/P (MAP) Pulse Ox O2 Delivery O2 Flow Rate FiO2 04/02/21 07:00 98.2 125 18 137/104 (115) 94 Room Air 98.2 I & O 04/01/21 04/01/21 04/02/21 15:00 23:00 07:00 Intake Total 1011.2 ml Output Total 100 ml 400 ml Balance -100 ml 1011.2 ml -400 ml Physical Exam General: Alert Lungs: Clear Assessment and Plan Assessmemt and Plan Assessment Alcohol withdrawal seizure History hypertension History alcohol abuse Plan Presenting after alcohol withdrawal seizure Aggressive CIWA protocol. Last drink was 2/6 not out of the window for worsening withdrawal Treat hypertension as needed Cont. holding home meds until can be clarified PAT consult Probable discharge this afternoon Regular diet DVT prophylaxis Full code Comment Review of Relevant I have reviewed the following items lana (where applicable) has been applied. Medications: Current Medications Medications (Trade) Dose Ordered Sig/Jacqueline Route PRN Reason Start Time Stop Time Status Last Admin Dose Admin Lorazepam (Ativan Inj) 2 mg PRN Q1HR PRN IV For CIWA 8-14 04/01/21 14:15 04/02/21 02:57 Justifications for Admission Other Justification Alcohol withdrawal, seizure EMILY HOUSTON III DO Apr 02, 2021 08:26
--- NOTE | 2021-04-02 08:42 | DS ---
DATE OF DISCHARGE: 04/02/2021 ADMISSION DIAGNOSES: Alcohol intoxication, alcohol seizures. DISCHARGE DIAGNOSES: Resolving alcohol intoxication, resolving alcohol seizures, resolving alcohol withdrawal, hypertension. HOSPITAL COURSE: The patient is a pleasant middle-aged male who presented to the ER with alcohol intoxication and seizures. He was admitted. We gave him alcohol withdrawal protocol. Today, I saw and examined him. He is doing great, wants to go home. We plan to discharge. DISPOSITION: Home. ACTIVITY: As tolerated. DIET: Low sodium. MEDICATIONS: Please see the MRAD. Clonidine 0.1 q. 8, famotidine 20 b.i.d., folic acid 1 a day, gabapentin 300 t.i.d., lactulose 20 mL daily, Maalox and vitamin B1. Total time [address]: KATE/carmela TID: [id number]
[2021-04-02] MEDS: MULTIVIT INFUSN,ADULT 4,VIT K 10 ML, THIAMINE INJ 100 MG, FOLIC ACID INJ 1 MG in IV NOR... IV SCH (09:00)
--- NOTE | 2021-04-02 11:55 | NUR ---
SW following. Discussed with RN, discharge order for home with self care. Yasmine (MCKENZIE) saw pt yesterday - provided resources. RN advised no SW needs at this time. Pt is a high risk readmission due to non compliance.
[2021-04-02 15:00] VITALS: BP_SYST 108; BP_SYST 150; BP_DIAS 68; BP_DIAS 73
--- NOTE | 2021-04-02 15:00 | NUR ---
Wound Care: Consult to eval and treat for wounds present on admission. Wound photos present in chart. 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 Pt is dressed and packed for discharge. No other wounds noted on head to toe inspection. No DC orders or outpatient followup necessary.
[2021-04-05] MEDS ORDERED: THIAMINE 100 MG TABLET. PO SCH (09:00)
[2021-04-05] MEDS ORDERED: FOLIC ACID 1 MG TABLET. PO SCH (09:00)
[2021-04-05] MEDS ORDERED: MULTIVITAMIN with MINERAL TABLET. PO SCH (09:00)
[2021-04-06] MEDS ORDERED: FOLIC ACID 1 MG TABLET. PO SCH (09:00)
[2021-04-06] MEDS ORDERED: MULTIVITAMIN with MINERAL TABLET. PO SCH (09:00)
[2021-04-06] MEDS ORDERED: THIAMINE 100 MG TABLET. PO SCH (09:00)
== END 2021-04-02 18:45 | disposition home or self-care (01) | DRG 897 ==
LOC: ER 12:32 → 5 NORTH 13:26
PROVIDERS: ADMIT Student in an Organized Health Care Education/Training Program; ATTEND Student in an Organized Health Care Education/Training Program
DX: F10.239 Alcohol dependence with withdrawal, unspecified (principal); F10.229 Alcohol dependence with intoxication, unspecified; I10 Essential (primary) hypertension; R56.9 Unspecified convulsions
CPT/HCPCS: 36415; 80048; 80053; 85007; 85025; 96361; 96374; 96375; G0480; J0360; J1644; J2060; J2405; J3411; J3490; J7030; 99285-25; G0378

== ENCOUNTER 2021-05-11 02:58 | Emergency (ER) | payer BC ==
[~2021-05-11] VITALS: Ht 175.3 cm; Wt 88.6 kg
--- NOTE | 2021-05-11 03:21 | PHYS DOC ---
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 The patient reports that he thinks he might of fallen, though he cannot articulate how. He reports that he had chest pain 2 days ago, denies it currently. He denies dyspnea. He denies abdominal pain or nausea or vomiting symptoms. He admits to drinking alcohol heavily today, he admits to drinking alcohol daily. He reports that his called 911, he is not exactly sure why she called, however. He denies using illicit drugs. He does report some mild dysuria "for a wall." He denies penile discharge, scrotal pain or swelling. He is reportedly not sexually active. No history of prostate problems or history of prostatitis. He is asking to eat and drink and asking to be left alone to sleep. Regarding the reported fall, he denies head injury or loss of consciousness. He denies neck pain or back pain. He denies numbness or tingling or motor weakness. Review of Systems: Review of Systems: Constitutional: Denies fever or chills. [] HENT: Denies nasal congestion or sore throat. [] Respiratory: Denies cough or shortness of breath. [] Cardiovascular: Denies chest pain or edema. [] GI: Denies abdominal pain, nausea, vomiting : Dysuria, denies incontinence Musculoskeletal: Denies back pain or joint pain. [] Integument: Denies rash. [] Neurologic: Denies headache, focal weakness or sensory changes. Denies syncope or loss of consciousness. Psychiatric: Alcohol use disorder, current intoxication. Denies SI or HI. Heart Score: C/O Chest Pain: Yes HEART Score for Chest Pain: HEART Score for Chest Pain Response (Comments) Value History Slighlty/Non-Suspicious 0 ECG Nonspecific Repolarizatio 1 Age >45 - < 65 1 Risk Factors 1 or 2 Risk Factors 1 Troponin < Normal Limit 0 Total 3 Risk Factors: Risk Factors: DM, Current or recent (<one month) smoker, HTN, HLP, family history of CAD, obesity. Risk Scores: Score 0 - 3: 2.5% MACE over next 6 weeks - Discharge Home Score 4 - 6: 20.3% MACE over next 6 weeks - Admit for Clinical Observation Score 7 - 10: 72.7% MACE over next 6 weeks - Early Invasive Strategies Allergies: Allergies: Allergies Coded Allergies Type Severity Reaction Last Updated Verified No Known Drug Allergies 03/20/19 No Physical Exam: PE: Constitutional: Well developed, well nourished, no acute distress, non-toxic appearance. Appears intoxicated, mildly disheveled. HENT: Normocephalic, atraumatic, oropharynx is patent and clear, mucous membranes are moist. No dental trauma. No evidence of facial trauma or contusion. External ears normal bilaterally. TMs are clear bilaterally. Nares are patent clear without rhinorrhea or epistaxis. Eyes: PERRL, EOMI, conjunctiva normal, no discharge. Bilateral horizontal nystagmus. No scleral icterus. Neck: Normal range of motion, no tenderness, supple, no stridor. No midline tenderness or step-offs. No deformity. Cardiovascular: Tachycardic, regular, rate in the low 100s. +2 radial and +2 posterior tibial pulses bilaterally. No cyanosis, no edema Lungs & Thorax: Bilateral breath sounds clear to auscultation, no evidence of chest or thorax trauma. No rales, rhonchi or wheezes. Abdomen: Abdomen is soft, nondistended, nontender to palpation. No flank abdominal ecchymoses. No CVA tenderness. No palpable pulsatile mass. Skin: Warm, dry, no erythema, no rash. No wounds. No jaundice. Back: No tenderness, no CVA tenderness. Full range of motion. No midline tenderness or step-offs. No deformity. Extremities: No tenderness, no cyanosis, no clubbing, ROM intact, no edema. Pelvis jovial stable. No limb deformity. No calf tenderness Neurologic: He is awake, alert, oriented x3, no facial asymmetry, 5 out of 5 motor strength all 4 extremities, sensation is grossly intact, speech is cleared, appears intoxicated, smells of alcohol Psychologic: Affect is jovial, intoxicated, cooperative EKG: EKG: EKG is interpreted at 0352 Rhythm is sinus Rate is 70 bpm [place] is left artifact No STEMI Radiology/Procedures: Radiology/Procedures: IMAGING REPORT Signed PATIENT: PASQUALE ORELLANA ACCOUNT: [id number] : 1965 LOCATION: ER AGE: 56 SEX: M EXAM STATUS: REG ER ORD. PHYSICIAN: BEV ENRIQUE DO REASON: etoh, fall PROCEDURE: CT HEAD AND CERVICAL SPINE WO CT HEAD AND C-SPINE WO History: Fall, alcohol, pain. Comparison: None. Technique: Noncontrast CT of the head and cervical spine. Findings: CT HEAD: There is no evidence for intracranial mass or hemorrhage. There is no hydrocephalus or midline shift. No abnormal extra-axial fluid collections are present. No evidence of acute territorial infarction. The visualized paranasal sinuses and mastoid air cells are clear. The skull and scalp are within normal limits. CT CERVICAL SPINE: There is no evidence for fracture in the cervical spine. Alignment is normal. Disc spaces are preserved. Mild multilevel cervical facet degenerative changes. No destructive osseous lesions are seen. Limited evaluation of the soft tissues of the neck and of the upper chest is unremarkable. Impression: 1. No acute intracranial findings. 2. No acute osseous abnormality in the cervical spine. ------- Exposure: One or more of the following individualized dose reduction techniques were utilized for this examination: 1. Automated exposure control 2. Adjustment of the mA and/or kV according to patient size 3. Use of iterative reconstruction technique. Electronically signed by: Jaswinder Mcgill MD (05/11/2021 4:41 AM) [facility] DICTATED and SIGNED BY: JASWINDER MCGILL MD DATE: 05/11/21439 IMAGING REPORT Signed PATIENT: PASQUALE ORELLANA ACCOUNT: [id number] : 1965 LOCATION: ER AGE: 56 SEX: M EXAM STATUS: REG ER ORD. PHYSICIAN: BEV ENRIQUE DO REASON: etoh, fall PROCEDURE: PORTABLE CHEST 1V XR CHEST 1V History: Fall. Pain. Comparison: 11/20/2020 Technique: AP radiograph of the chest. Findings: The lungs are adequately and symmetrically inflated. No airspace consolidation, pleural effusion or pneumothorax. The cardiomediastinal silhouette and pulmonary vasculature are within normal limits. No acute osseous abnormality. Multilevel marginal osteophytes in the thoracic spine. Soft tissues are unremarkable. Impression: 1. No acute cardiopulmonary process. Electronically signed by: Jaswinder Mcgill MD (05/11/2021 4:42 AM) [facility] DICTATED and SIGNED BY: JASWINDER MCGILL MD DATE: 05/11/21 0441 Course & Med Decision Making: Course & Med Decision Making Pertinent Labs and Imaging studies reviewed. (See chart for details) The patient is given IV fluids. First dose of oral liquid is given. He understands that urine culture is pending. I discussed the findings, differential diagnosis and plan of care with him. I told him to follow-up with his PCP for follow-up, discussion of alcohol use disorder, cessation, alcohol abuse resources. He is prescribed antibiotics, he is to take the full course of this, follow-up with his PCP for this as well. No current indication for further invasive exams, imaging or admission at this time based on current clinical presentation. Return precautions are given. Dragon Disclaimer: Dragon Disclaimer: This electronic medical record was generated, in whole or in part, using a voice recognition dictation system. Departure Departure Impression: Primary Impression: Alcohol intoxication Qualified Codes: F10.929 - Alcohol use, unspecified with intoxication, unspecified Additional Impression: Urinary tract infection Qualified Codes: N39.0 - Urinary tract infection, site not specified; R31.9 - Hematuria, unspecified Disposition: 01 HOME / SELF CARE / HOMELESS Condition: STABLE Referrals: JARED MONTEMAYOR MD (PCP) Patient Instructions: Alcohol Intoxication, Urinary Tract Infection Additional Instructions: Please take the full course of antibiotics. Your urine culture is pending, if there is any need to change antibiotics based on this, you should be notified in about 2 days. Return to the ER for any acute injury or trauma, chest pain, shortness of breath, uncontrolled vomiting, severe abdominal pain, severe headache, weakness or other concerns. Please contact your primary care doctor regarding your alcoholism as well as your urinary tract infection and also for routine care. Scripts Levofloxacin (LEVOFLOXACIN) 750 Mg Tablet 1 TAB PO DAILY for 7 Days, #7 TAB Prov: BEV ENRIQUE DO 05/11/21 BEV ENRIQUE DO May 11, 2021 03:21
[2021-05-11] MEDS ORDERED: IV NORMAL SALINE 1000ML BAG 1,000 ML IV ONE (03:30)
[2021-05-11 03:52] LABS: BILIRUBIN,URINE NEGATIVE (NEG); CLARITY,URINE CLEAR; COLOR,URINE YELLOW; NITRITE,URINE POSITIVE (NEG); PROTEIN,URINE NEGATIVE (NEG-TRACE); UROBILINOGEN,URINE 0.2 mg/dL (0.2 mg/dL)
[2021-05-11 03:53] LABS: BACTERIA,URINE MANY /HPF (0-FEW); RBC,URINE OCC /HPF (0-2); WBC,URINE TNTC /HPF (0-4)
[2021-05-11 03:54] LABS: BARBITURATES NEG (NEG); BENZODIAZEPINES NEG (NEG); CANNABINOIDS NEG (NEG); COCAINE NEG (NEG); METHADONE NEG (NEG); OPIATES NEG (NEG); PHENCYCLIDINE NEG (NEG)
[2021-05-11 03:55] LABS: AMPHETAMINE/METHAMPHETAMINE NEG (NEG)
[2021-05-11 04:13] LABS: BASO # 0.1 x10^3/uL (0.0-0.2); BASO % 1 % (0-3); EOS % 0 % (0-3); HEMATOCRIT 47.8 % (39.0-53.0); HEMOGLOBIN 15.3 g/dL (13.0-17.5); LYMPH # 1.9 x10^3/uL (1.0-4.8); LYMPH % 43 % (24-48); MEAN CORPUSCULAR HEMOGLOBIN 29 pg (25-35); MEAN CORPUSCULAR HGB CONC 32 g/dL (31-37); MEAN CORPUSCULAR VOLUME 91 fL (79-100); MONO # 0.6 x10^3/uL (0.0-1.1); MONO % 13 % (0-9); NEUT # 1.8 x10^3/uL (1.8-7.7); NEUT % 42 % (31-73); PLATELET COUNT 136 x10^3/uL (140-400); RED BLOOD COUNT 5.25 x10^6/uL (4.30-5.70); RED CELL DISTRIBUTION WIDTH 22.4 % (11.5-14.5); WHITE BLOOD COUNT 4.3 x10^3/uL (4.0-11.0)
--- NOTE | 2021-05-11 04:44 | RAD ---
CT HEAD AND C-SPINE WO History: Fall, alcohol, pain. Comparison: None. Technique: Noncontrast CT of the head and cervical spine. Findings: CT HEAD: There is no evidence for intracranial mass or hemorrhage. There is no hydrocephalus or midline shift. No abnormal extra-axial fluid collections are present. No evidence of acute territorial infarction. The visualized paranasal sinuses and mastoid air cells are clear. The skull and scalp are within normal limits. CT CERVICAL SPINE: There is no evidence for fracture in the cervical spine. Alignment is normal. Disc spaces are preserved. Mild multilevel cervical facet degenerative changes. No destructive osseous lesions are seen. Limited evaluation of the soft tissues of the neck and of the upper chest is unremarkable. Impression: 1. No acute intracranial findings. 2. No acute osseous abnormality in the cervical spine. ------- Exposure: One or more of the following individualized dose reduction techniques were utilized for thi s examination: 1. Automated exposure control 2. Adjustment of the mA and/or kV according to patient size 3. Use of iterative reconstruction technique. Electronically signed by: Jaswinder Wood MD (05/11/2021 4:41 AM) [facility]
--- NOTE | 2021-05-11 04:44 | RAD ---
XR CHEST 1V History: Fall. Pain. Comparison: 11/20/2020 Technique: AP radiograph of the chest. Findings: The lungs are adequately and symmetrically inflated. No airspace consolidation, pleural effusion or p neumothorax. The cardiomediastinal silhouette and pulmonary vasculature are within normal limits. No acute osseous abnormality. Multilevel marginal osteophytes in the thoracic spine. Soft tissues are un remarkable. Impression: 1. No acute cardiopulmonary process. Electronically signed by: Jaswinder Wood MD (05/11/2021 4:42 AM) [facility]
[2021-05-11 05:05] LABS: PLT ESTIMATE ADEQUATE (ADEQUATE)
[2021-05-11 05:10] LABS: ANISOCYTOSIS MOD; POIKILOCYTOSIS SLIGHT
[2021-05-11 05:11] LABS: CALCIUM 8.7 mg/dL (8.5-10.1); GFR 76.7
[2021-05-11 05:17] LABS: ALBUMIN 3.7 g/dL (3.4-5.0); ALBUMIN/GLOBULIN RATIO 0.9 (1.0-1.7); TOTAL BILIRUBIN 0.6 mg/dL (0.2-1.0); TOTAL PROTEIN 7.8 g/dL (6.4-8.2)
[2021-05-11] MEDS ORDERED: LEVO750T5 PO (06:10)
[2021-05-11 06:15] VITALS: BP 123/78
--- NOTE | 2021-05-11 06:52 | EKG ---
[facility] [address] [place] [address] Test Date: 1999-02-22 Test Time: 00:08:20 Pat Name: PASQUALE ORELLANA Department: Room: Gender: M [employer] Feeder: : 1965 Requested By: BEV ENRIQUE Order Number: [id number] Reading MD: Measurements Intervals [place] Rate: 70 P: -36 SD: 160 QRS: -39 QRSD: 100 T: -17 QT: 418 QTc: 454 Interpretive Statements SINUS RHYTHM ABNORMAL LEFT AXIS DEVIATION LEFT ANTERIOR FASCICULAR BLOCK T ABNORMALITY IN INFERIOR LEADS ABNORMAL ECG RI6.02 No previous ECG available for comparison
== END 2021-05-11 06:50 | disposition home or self-care (01) ==
LOC: ER 02:58
DX: N39.0 Urinary tract infection, site not specified (principal); R31.9 Hematuria, unspecified; F10.229 Alcohol dependence with intoxication, unspecified; Y90.8 Blood alcohol level of 240 mg/100 ml or more; I10 Essential (primary) hypertension
CPT/HCPCS: 36415; 70450; 71045; 72125; 80053; 80307; 81001; 82550; 83690; 83735; 84484; 85025; 87086; 93005; 96360; 99285; G0480; J7030

== ENCOUNTER 2021-05-14 08:56 | Observation (INO) | payer BC ==
[~2021-05-14] VITALS: Ht 175.3 cm; Wt 90.4 kg
[~2021-05-14 08:56] MED LIST changes: +LEVO750T5 PO
[2021-05-14] MEDS ORDERED: ONDANSETRON PF 4 MG/2 ML VIAL. IVP ONE ×2 (09:30→13:30)
[2021-05-14] MEDS ORDERED: MULTIVIT INFUSN,ADULT 4,VIT K 10 ML, THIAMINE INJ 100 MG, FOLIC ACID INJ 1 MG in IV NOR... IV ONE (09:30)
[2021-05-14 09:40] LABS: BASO # 0.1 x10^3/uL (0.0-0.2); BASO % 2 % (0-3); EOS % 1 % (0-3); HEMATOCRIT 46.6 % (39.0-53.0); HEMOGLOBIN 14.9 g/dL (13.0-17.5); LYMPH # 1.3 x10^3/uL (1.0-4.8); LYMPH % 30 % (24-48); MEAN CORPUSCULAR HEMOGLOBIN 29 pg (25-35); MEAN CORPUSCULAR HGB CONC 32 g/dL (31-37); MEAN CORPUSCULAR VOLUME 92 fL (79-100); MONO # 0.6 x10^3/uL (0.0-1.1); MONO % 14 % (0-9); NEUT # 2.4 x10^3/uL (1.8-7.7); NEUT % 54 % (31-73); PLATELET COUNT 132 x10^3/uL (140-400); RED BLOOD COUNT 5.08 x10^6/uL (4.30-5.70); RED CELL DISTRIBUTION WIDTH 22.8 % (11.5-14.5); WHITE BLOOD COUNT 4.4 x10^3/uL (4.0-11.0)
--- NOTE | 2021-05-14 09:52 | RAD ---
Single view of the chest. 05/14/2021 9:34 AM Indication: Reason: palpitations / Spl. Instructions: / History: Comparison: Chest radiograph May 11, 2021 Findings: There is no focal consolidation. There is no pleural effusion or pneumothorax. The cardiome diastinal silhouette and pulmonary vasculature are within normal limits. No acute osseous abnormaliti es are seen. Impression: No evidence of acute cardiopulmonary process. Electronically signed by: Clint Roblero MD (05/14/2021 9:50 AM) [id number]
[2021-05-14 10:58] LABS: CALCIUM 8.7 mg/dL (8.5-10.1); CREATININE 0.8 mg/dL (0.7-1.3); GFR 99.3; POTASSIUM 3.8 mmol/L (3.5-5.1)
[2021-05-14 11:04] LABS: ALBUMIN 3.6 g/dL (3.4-5.0); MAGNESIUM 1.8 mg/dL (1.8-2.4); TOTAL BILIRUBIN 0.6 mg/dL (0.2-1.0); TOTAL PROTEIN 7.3 g/dL (6.4-8.2)
[2021-05-14 12:19] LABS: INFLUENZA A PATIENT NEGATIVE (NEGATIVE); INFLUENZA B PATIENT NEGATIVE (NEGATIVE)
--- NOTE | 2021-05-14 14:27 | PHYS DOC ---
Past Medical History Past Medical History: Alcoholism, Hypertension Additional Past Medical Histor: seizures/alcohol withdrawl Past Surgical History: Other Additional Past Surgical Histo: Foot surgery, tumor removed from intestines Smoking Status: Never Smoker Alcohol Use: Heavy Additional Information: reports drinking 1 liter of vodka every 2 days Drug Use: None Adult General Chief Complaint Chief Complaint: WITHDRAWL HPI HPI Patient is a 56 year old male who presents with alcohol withdrawal symptoms. Patient states his last drink was earlier today. He states he has had seizures in the past as well as delirium tremens when withdrawing from alcohol. No recent injury, no recent fevers or illness either. Review of Systems Review of Systems Constitutional: Denies fever Eyes: Denies change in visual acuity or eye pain HENT: Denies sore throat Respiratory: Denies shortness of breath Cardiovascular: Denies chest pain GI: Denies abd pain : Denies dysuria Musculoskeletal: Denies back or extremity injury Integument: Denies rash or skin lesions Neurologic: Denies headache, focal weakness or sensory changes All other systems were reviewed and found to be within normal limits, except as documented in this note. Current Medications Current Medications Current Medications Medications (Trade) Dose Ordered Sig/Jacqueline Start Time Stop Time Status Last Admin Dose Admin Lorazepam (Ativan Inj) 2 mg 1X ONCE 05/14/21 14:30 05/14/21 14:31 DC 05/14/21 15:03 2 MG Multivitamins 10 ml/Thiamine HCl 100 mg/Folic Acid 1 mg/Sodium Chloride 1,011.2 ml @ 1,000.088 mls/hr 1X ONCE 05/14/21 09:30 05/14/21 10:30 DC 05/14/21 09:57 1,000.088 MLS/HR Ondansetron HCl (Zofran) 4 mg 1X ONCE 05/14/21 13:30 05/14/21 13:31 DC 05/14/21 13:31 4 MG Sodium Chloride 1,000 ml @ 1,000 mls/hr 1X ONCE 05/14/21 14:30 05/14/21 15:29 DC 05/14/21 15:02 1,000 MLS/HR Allergies Allergies Allergies Coded Allergies Type Severity Reaction Last Updated Verified No Known Drug Allergies 05/14/21 No Physical Exam Physical Exam Constitutional: Well developed, well nourished, mild to moderately anxious, non- toxic appearance. HENT: Normocephalic, atraumatic, bilateral external ears normal, mucosa moist, nose normal. Eyes: EOMI, conjunctiva normal, no discharge. Neck: Normal range of motion, supple, no stridor, no meningeal signs. Cardiovascular: Regular rate and rhythm with tachycardic rate about 120 Lungs & Thorax: Bilateral breath sounds clear to auscultation Abdomen: Soft, no tenderness or obvious masses Skin: Warm, dry, no erythema, no rash. Extremities: No tenderness, no cyanosis, no clubbing, ROM intact, no edema. Neurologic: Alert and oriented, normal motor function, normal sensory function, no focal deficits noted. Psychologic: Affect normal, judgement normal, mood normal. Current Patient Data Vital Signs Vital Signs Date Time Temp Pulse Resp B/P (MAP) Pulse Ox O2 Delivery O2 Flow Rate FiO2 05/14/21 13:07 116 17 164/107 (126) 92 Room Air 05/14/21 09:05 98.5 98.5 Lab Values Laboratory Tests Test 05/14/21 09:25 05/14/21 09:50 05/14/21 11:40 White Blood Count 4.4 x10^3/uL (4.0-11.0) Red Blood Count 5.08 x10^6/uL (4.30-5.70) Hemoglobin 14.9 g/dL (13.0-17.5) Hematocrit 46.6 % (39.0-53.0) Mean Corpuscular Volume 92 fL (79-100) Mean Corpuscular Hemoglobin 29 pg (25-35) Mean Corpuscular Hemoglobin Concent 32 g/dL (31-37) Red Cell Distribution Width 22.8 % (11.5-14.5) H Platelet Count 132 x10^3/uL (140-400) L Neutrophils (%) (Auto) 54 % (31-73) Lymphocytes (%) (Auto) 30 % (24-48) Monocytes (%) (Auto) 14 % (0-9) H Eosinophils (%) (Auto) 1 % (0-3) Basophils (%) (Auto) 2 % (0-3) Neutrophils # (Auto) 2.4 x10^3/uL (1.8-7.7) Lymphocytes # (Auto) 1.3 x10^3/uL (1.0-4.8) Monocytes # (Auto) 0.6 x10^3/uL (0.0-1.1) Eosinophils # (Auto) 0.0 x10^3/uL (0.0-0.7) Basophils # (Auto) 0.1 x10^3/uL (0.0-0.2) Sodium Level 141 mmol/L (136-145) Potassium Level 3.8 mmol/L (3.5-5.1) Chloride Level 104 mmol/L (98-107) Carbon Dioxide Level 23 mmol/L (21-32) Anion Gap 14 (6-14) Blood Urea Nitrogen 9 mg/dL (8-26) Creatinine 0.8 mg/dL (0.7-1.3) Estimated GFR (Cockcroft-Gault) 99.3 BUN/Creatinine Ratio 11 (6-20) Glucose Level 114 mg/dL (70-99) H Calcium Level 8.7 mg/dL (8.5-10.1) Magnesium Level 1.8 mg/dL (1.8-2.4) Total Bilirubin 0.6 mg/dL (0.2-1.0) Aspartate Amino Transferase (AST) 197 U/L (15-37) H Alanine Aminotransferase (ALT) 100 U/L (16-63) H Alkaline Phosphatase 98 U/L (46-116) Troponin I High Sensitivity 9 ng/L (4-75) Total Protein 7.3 g/dL (6.4-8.2) Albumin 3.6 g/dL (3.4-5.0) Albumin/Globulin Ratio 1.0 (1.0-1.7) Lipase 190 U/L (73-393) Ethyl Alcohol Level 145 mg/dL (0-10) H Influenza Type A Antigen Negative (NEGATIVE) Influenza Type B Antigen Negative (NEGATIVE) SARS-CoV-2 Antigen (Rapid) Negative (NEGATIVE) Laboratory Tests 05/14/21 09:25 Laboratory Tests 05/14/21 09:50 EKG EKG [] Interpretation Time: Code EKG demonstrates a sinus rhythm with a rate of 109. HI, QRS and QT corrected intervals are within normal limits. R wave progression is poor. [place] is deviated to the left. No ST segment elevation or depression, no clinically pertinent Q waves. Radiology/Procedures Radiology/Procedures [] Impressions: PATIENT: PASQUALE ORELLANA AACCOUNT: [id number]#: [id number] : 1965 LOCATION: ER AGE: 56 SEX: M EXAM STATUS: PRE ER ORD. PHYSICIAN: AVERY COLIN MD REASON: palpitations PROCEDURE: CHEST AP ONLY Single view of the chest. 05/14/2021 9:34 AM Indication: Reason: palpitations / Spl. Instructions: / History: Comparison: Chest radiograph May 11, 2021 Findings: There is no focal consolidation. There is no pleural effusion or pneumothorax. The cardiomediastinal silhouette and pulmonary vasculature are within normal limits. No acute osseous abnormalities are seen. Impression: No evidence of acute cardiopulmonary process. Electronically signed by: Clint Jalloh MD (05/14/2021 9:50 AM) [id number] DICTATED and SIGNED BY: CLINT JALLOH MD DATE: 05/14/21 0943 Course & Med Decision Making Course & Med Decision Making Pertinent Labs and Imaging studies reviewed. (See chart for details) [] This is a 56-year-old male with alcohol withdrawal symptoms. He was given a banana bag and 2 mg of Ativan. He was observed in the emerge department for a bit. On reassessment his heart rate has gone up to 130. The patient remains somewhat anxious. We have ordered another liter of normal saline and an add itional 2 mg of Ativan IV push. We will keep him in the hospital at this time for further management, he is in stable but guarded condition. Dragon Disclaimer Dragon Disclaimer This electronic medical record was generated, in whole or in part, using a voice recognition dictation system. Departure Departure Impression: Primary Impression: Alcohol withdrawal Disposition: ADMITTED INPATIENT Condition: GUARDED Referrals: JARED MONTEMAYOR MD (PCP) AVERY COLIN MD May 14, 2021 14:27
[2021-05-14] MEDS ORDERED: IV NORMAL SALINE 1000ML BAG 1,000 ML IV ONE (14:30)
--- NOTE | 2021-05-14 14:59 | PDOC1 ---
History and Physical Date of Admission Date of Admission DATE: 05/14/21 TIME: 14:58 Identification/Chief Complaint Chief Complaint Tremors Source Source: Caregiver, Chart review, Patient History of Present Illness History of Present Illness Mr Lozada is a 56-year-old male past medical history of alcohol abuse, who presented to the ER accompanied by his c/o tremors and is nauseated, he and his think he is withdrawing from ETOH. He drinks 1 Liter of Vodka every 2 days, states he drank a beer this morning around 0400. Last vodka drink was 05/13/2021 overnight around 2000. Previously treated for seizures related to ETOH withdrawal. His is requesting inpatient treatment for alcohol use disorder, he says, "Ok". He is somewhat confused during examination, falling asleep frequently. Did receive ativan. No seizure activity noted in ED. Apparently he was seen 3 days prior in the ED for some dysuria he had staff epidermidis grow on culture. He and his currently did not complain of any dysuria or urinary retention. WBC 5.4, Hb 14.9, platelets 132, NA 141, K3.8, BUN 9, CR 0.8, glucose 114, calcium 8.7, mag 1.8, bilirubin 0.6, AST 197, ALT 100, alkaline phosphatase 98, albumin 3.6, high-sensitivity troponin is 9, ethanol level at 0950 is 145 mg/Evelyn, rapid influenza and rapid COVID-19 negative Chest radiograph no acute abnormality. Past Medical History Cardiovascular: CAD, HTN, Other Pulmonary: No pertinent hx CENTRAL NERVOUS SYSTEM: Seizure GI: Diverticulosis Heme/Onc: Cancer, Iron deficiency Anemia Hepatobiliary: Other Psych: Addictions Musculoskeletal: Osteoarthritis Rheumatologic: No pertinent hx Infectious disease: No pertinent hx Renal/: No pertinent hx Endocrine: Diabetes Past Surgical History Past Surgical History: Other Family History Family History: Alcohol Abuse, Coronary Artery Disease, Hypertension Social History Smoke: No ALCOHOL: heavy Drugs: None Current Medications Current Medications Current Medications Lorazepam (Ativan Inj) 2 mg STK-MED ONCE .ROUTE ; Start 05/14/21 at 09:30; Stop 05/14/21 at 09:30; Status DC Multivitamins 10 ml/Thiamine HCl 100 mg/Folic Acid 1 mg/Sodium Chloride 1,011.2 ml @ 1,000.088 mls/hr 1X ONCE IV Last administered on 05/14/21at 09:57; Start 05/14/21 at 09:30; Stop 05/14/21 at 10:30; Status DC Ondansetron HCl (Zofran) 4 mg 1X ONCE IVP Last administered on 05/14/21at 09:45; Start 05/14/21 at 09:30; Stop 05/14/21 at 09:35; Status DC Lorazepam (Ativan Inj) 2 mg 1X ONCE IVP Last administered on 05/14/21at 09:33; Start 05/14/21 at 09:30; Stop 05/14/21 at 09:35; Status DC Ondansetron HCl (Zofran) 4 mg 1X ONCE IVP Last administered on 05/14/21at 13:31; Start 05/14/21 at 13:30; Stop 05/14/21 at 13:31; Status DC Lorazepam (Ativan Inj) 2 mg 1X ONCE IVP ; Start 05/14/21 at 14:30; Stop 05/14/21 at 14:31; Status DC Sodium Chloride 1,000 ml @ 1,000 mls/hr 1X ONCE IV ; Start 05/14/21 at 14:30; Stop 05/14/21 at 15:29 Active Scripts Active Levofloxacin 750 Mg Tablet 1 Tab PO DAILY 7 Days Clonidine Hcl 0.1 Mg Tablet 0.1 Mg PO Q8HRS 14 Days Gabapentin (Gabapentin) 300 Mg Capsule 300 Mg PO TID 90 Days Famotidine 20 Mg Tablet 20 Mg PO BID 14 Days Mag-Al Plus Xs Suspension (Mag Hydrox/Al Hydrox/Simeth) 30 Ml Oral.susp 30 Ml PO PRN Q3HRS PRN 14 Days Lactulose 20 Gm/30 Ml Solution 20 Gm PO PRN Q12HR PRN 14 Days [Folic Acid] 1 MG Tablet 1 Mg PO DAILY 30 Days Vitamin B-1 (Thiamine Mononitrate) 100 Mg Tablet 100 Mg PO DAILY 30 Days Allergies Allergies: Coded Allergies: No Known Drug Allergies (Unverified , 05/14/21) ROS General: YES: Fatigue, Malaise; No: Chills, Night Sweats, Appetite, Other PSYCHOLOGICAL ROS: YES: Anxiety, Disorientation, Irritablity, Memory difficulties, Mood Swings, Obsessive thoughts, Sleep disturbances; No: Behavioral Disorder, Concentration difficultie, Decreased libido, Depression, Hallucinations, Hostility, Physical abuse, Sexual abuse, Suicidal ideation, Other Eyes: No Blurry vision, No Decreased vision, No Double vision, No Dry eyes, No Excessive tearing, No Eye Pain, No Itchy Eyes, No Loss of vision, No Photophobia, No Scotomata, No Uses contacts, No Uses glasses, No Other HEENT: No: Heacaches, Visual Changes, Hearing change, Nasal congestion, Nasal discharge, Oral lesions, Sinus pain, Sore Throat, Epistaxis, Sneezing, Snoring, Tinnitus, Vertigo, Vocal changes, Other ALLERGY AND IMMUNOLOGY: No: Hives, Insect Bite Sensitivity, Itchy/Watery Eyes, Nasal Congestion, Post Nasal Drip, Seasonal Allergies, Other Hematological and Lymphatic: No: Bleeding Problems, Blood Clots, Blood Transfusions, Brusing, Night Sweats, Pallor, Swollen Lymph Nodes, Other ENDOCRINE: No: Breast Changes, Galactorrhea, Hair Pattern Changes, Hot Flashes, Malaise/lethargy, Mood Swings, Palpitations, Polydipsia/polyuria, Skin Changes, Temperature Intolerance, Unexpected Weight Changes, Other Breast: No New/Changing Breast Lumps, No Nipple changes, No Nipple discharge, No Other Respiratory: No: Cough, Hemoptysis, Orthopnea, Pleuritic Pain, Shortness of breath, SOB with excertion, Sputum Changes, Stridor, Tachypnea, Wheezing, Other Cardiovascular: No Chest Pain, No Palpitations, No Orthopnea, No Paroxysmal Noc. Dyspnea, No Edema, No Lt Headedness, No Other Gastrointestinal: No Nausea, No Vomiting, No Abdominal Pain, No Diarrhea, No Constipation, No Melena, No Hematochezia, No Other Genitourinary: No Dysuria, No Frequency, No Incontinence, No Hematuria, No Retention, No Discharge, No Urgency, No Pain, No Flank Pain, No Other, No , No , No , No , No , No , No Musculoskeletal: No Gait Disturbance, No Joint Pain, No Joint Stiffness, No Joint Swelling, No Muscle Pain, No Muscular Weakness, No Pain In:, No Swelling In:, No Other Neurological: Yes Confusion, Yes Impaired Coord/balance, Yes Memory Loss, Yes Seizures, Yes Tremors; No Behavorial Changes, No Bowel/Bladder ControlChng, No Dizziness, No Gait Disturbance, No Headaches, No Numbness/Tingling, No Speech Problems, No Visual Changes, No Weakness, No Other Skin: No Dry Skin, No Eczema, No Hair Changes, No Lumps, No Mole Changes, No Mottling, No Nail Changes, No Pruritus, No Rash, No Skin Lesion Changes, No Other, No Acne Physical Exam General: Alert, Cooperative, mild distress HEENT: Atraumatic, PERRLA, EOMI, Mucous membr. moist/pink Lungs: Clear to auscultation, Normal air movement Heart: S1S2, RRR, no thrills, no rubs, no gallops, no murmurs Abdomen: Normal bowel sounds, Soft, No tenderness, No hepatosplenomegaly, No masses Rectal Exam: not examined Extremities: No clubbing, No cyanosis, No edema, Normal pulses, No tenderness/swelling Skin: No rashes, No breakdown, No significant lesion Neuro: Normal gait, Normal speech, Strength at 5/5 X4 ext, Normal tone, Sensation intact, Cranial nerves 3-12 NL, Reflexes 2+ Psych/Mental Status: Other (Confused drowsy) Vitals Vitals Vital Signs Date Time Temp Pulse Resp B/P (MAP) Pulse Ox O2 Delivery O2 Flow Rate FiO2 05/14/21 13:07 116 17 164/107 (126) 92 Room Air 05/14/21 09:05 98.5 98.5 Labs Labs Laboratory Tests Test 05/14/21 09:25 05/14/21 09:50 05/14/21 11:40 White Blood Count 4.4 x10^3/uL (4.0-11.0) Red Blood Count 5.08 x10^6/uL (4.30-5.70) Hemoglobin 14.9 g/dL (13.0-17.5) Hematocrit 46.6 % (39.0-53.0) Mean Corpuscular Volume 92 fL (79-100) Mean Corpuscular Hemoglobin 29 pg (25-35) Mean Corpuscular Hemoglobin Concent 32 g/dL (31-37) Red Cell Distribution Width 22.8 % (11.5-14.5) Platelet Count 132 x10^3/uL (140-400) Neutrophils (%) (Auto) 54 % (31-73) Lymphocytes (%) (Auto) 30 % (24-48) Monocytes (%) (Auto) 14 % (0-9) Eosinophils (%) (Auto) 1 % (0-3) Basophils (%) (Auto) 2 % (0-3) Neutrophils # (Auto) 2.4 x10^3/uL (1.8-7.7) Lymphocytes # (Auto) 1.3 x10^3/uL (1.0-4.8) Monocytes # (Auto) 0.6 x10^3/uL (0.0-1.1) Eosinophils # (Auto) 0.0 x10^3/uL (0.0-0.7) Basophils # (Auto) 0.1 x10^3/uL (0.0-0.2) Sodium Level 141 mmol/L (136-145) Potassium Level 3.8 mmol/L (3.5-5.1) Chloride Level 104 mmol/L (98-107) Carbon Dioxide Level 23 mmol/L (21-32) Anion Gap 14 (6-14) Blood Urea Nitrogen 9 mg/dL (8-26) Creatinine 0.8 mg/dL (0.7-1.3) Estimated GFR (Cockcroft-Gault) 99.3 BUN/Creatinine Ratio 11 (6-20) Glucose Level 114 mg/dL (70-99) Calcium Level 8.7 mg/dL (8.5-10.1) Magnesium Level 1.8 mg/dL (1.8-2.4) Total Bilirubin 0.6 mg/dL (0.2-1.0) Aspartate Amino Transf (AST/SGOT) 197 U/L (15-37) Alanine Aminotransferase (ALT/SGPT) 100 U/L (16-63) Alkaline Phosphatase 98 U/L (46-116) Troponin I High Sensitivity 9 ng/L (4-75) Total Protein 7.3 g/dL (6.4-8.2) Albumin 3.6 g/dL (3.4-5.0) Albumin/Globulin Ratio 1.0 (1.0-1.7) Lipase 190 U/L (73-393) Ethyl Alcohol Level 145 mg/dL (0-10) Influenza Type A Antigen Negative (NEGATIVE) Influenza Type B Antigen Negative (NEGATIVE) SARS-CoV-2 Antigen (Rapid) Negative (NEGATIVE) Laboratory Tests Test 05/14/21 09:25 05/14/21 09:50 05/14/21 11:40 White Blood Count 4.4 x10^3/uL (4.0-11.0) Red Blood Count 5.08 x10^6/uL (4.30-5.70) Hemoglobin 14.9 g/dL (13.0-17.5) Hematocrit 46.6 % (39.0-53.0) Mean Corpuscular Volume 92 fL (79-100) Mean Corpuscular Hemoglobin 29 pg (25-35) Mean Corpuscular Hemoglobin Concent 32 g/dL (31-37) Red Cell Distribution Width 22.8 % (11.5-14.5) Platelet Count 132 x10^3/uL (140-400) Neutrophils (%) (Auto) 54 % (31-73) Lymphocytes (%) (Auto) 30 % (24-48) Monocytes (%) (Auto) 14 % (0-9) Eosinophils (%) (Auto) 1 % (0-3) Basophils (%) (Auto) 2 % (0-3) Neutrophils # (Auto) 2.4 x10^3/uL (1.8-7.7) Lymphocytes # (Auto) 1.3 x10^3/uL (1.0-4.8) Monocytes # (Auto) 0.6 x10^3/uL (0.0-1.1) Eosinophils # (Auto) 0.0 x10^3/uL (0.0-0.7) Basophils # (Auto) 0.1 x10^3/uL (0.0-0.2) Sodium Level 141 mmol/L (136-145) Potassium Level 3.8 mmol/L (3.5-5.1) Chloride Level 104 mmol/L (98-107) Carbon Dioxide Level 23 mmol/L (21-32) Anion Gap 14 (6-14) Blood Urea Nitrogen 9 mg/dL (8-26) Creatinine 0.8 mg/dL (0.7-1.3) Estimated GFR (Cockcroft-Gault) 99.3 BUN/Creatinine Ratio 11 (6-20) Glucose Level 114 mg/dL (70-99) Calcium Level 8.7 mg/dL (8.5-10.1) Magnesium Level 1.8 mg/dL (1.8-2.4) Total Bilirubin 0.6 mg/dL (0.2-1.0) Aspartate Amino Transf (AST/SGOT) 197 U/L (15-37) Alanine Aminotransferase (ALT/SGPT) 100 U/L (16-63) Alkaline Phosphatase 98 U/L (46-116) Troponin I High Sensitivity 9 ng/L (4-75) Total Protein 7.3 g/dL (6.4-8.2) Albumin 3.6 g/dL (3.4-5.0) Albumin/Globulin Ratio 1.0 (1.0-1.7) Lipase 190 U/L (73-393) Ethyl Alcohol Level 145 mg/dL (0-10) Influenza Type A Antigen Negative (NEGATIVE) Influenza Type B Antigen Negative (NEGATIVE) SARS-CoV-2 Antigen (Rapid) Negative (NEGATIVE) Images Images Chest radiograph: There is no focal consolidation. There is no pleural effusion or pneumothorax. The cardiomediastinal silhouette and pulmonary vasculature are within normal limits. No acute osseous abnormalities are seen. Impression: No evidence of acute cardiopulmonary process. VTE Prophylaxis Ordered VTE Prophylaxis Devices: No VTE Pharmacological Prophylaxi: Yes Assessment/Plan Assessment/Plan Acute alcohol withdrawal with some delerium - still with some ETOH in system, [facility] protocol Alcohol use disorder - counseled. Currently not clear if he wants help, but notes his wants him to have help and he will do as she requests of him. Hypertension - prn clonidine Depression - cont home meds Delirium tremens - CIWA H/o Dilated cardiomyopathy - alcohol related Metabolic encephalopathy, acute - due to alcohol withdrawal despite intoxication Lactic acidosis - due to seizure Transaminitis - likely alcohol related, monitor Thrombocytopenia - likely ETOH related, monitor Recent urine culture positive for staph epi -likely this was a skin contaminant given squamous cells urine sample. Will monitor urine output. FEN - regular diet PPX - ambulatory FULL CODE Dispo - observation, previously has had withdrawal seizures, may need inpatient if his withdrawal symptoms worsen. Justifications for Admission Other Justification Alcohol withdrawal, seizure DYAN SANDOVAL MD May 14, 2021 14:59
[2021-05-14] MEDS ORDERED: LISI10TA16 PO (16:58)
[2021-05-14] MEDS ORDERED: ACETAMINOPHEN 325 MG TABLET. PO PRN (17:15)
[2021-05-14] MEDS ORDERED: traMADol 50 MG TABLET PO PRN (17:15)
[2021-05-14] MEDS ORDERED: ONDANSETRON PF 4 MG/2 ML VIAL. IVP PRN (17:15)
[2021-05-14] MEDS ORDERED: HALOPERIDOL LACTATE 5 MG/ML VIAL. IVP PRN (17:15)
[2021-05-14 19:00] VITALS: BP 151/99
[2021-05-14] MEDS: traZODone 100 MG TABLET. PO SCH (20:47)
[2021-05-14] MEDS: GABAPENTIN 300 MG CAPSULE. PO SCH (20:47)
[2021-05-14] MEDS: MAGNESIUM OXIDE 400 MG TABLET PO SCH (20:47)
[2021-05-14 23:00] VITALS: BP 146/115
[2021-05-15 03:00] VITALS: BP 163/105
[2021-05-15 03:58] LABS: HEMATOCRIT 43.1 % (39.0-53.0); RED BLOOD COUNT 4.73 x10^6/uL (4.30-5.70); RED CELL DISTRIBUTION WIDTH 22.1 % (11.5-14.5); WHITE BLOOD COUNT 5.5 x10^3/uL (4.0-11.0)
[2021-05-15 04:17] LABS: ALBUMIN 3.3 g/dL (3.4-5.0); ALBUMIN/GLOBULIN RATIO 0.9 (1.0-1.7); CALCIUM 8.3 mg/dL (8.5-10.1); CREATININE 0.8 mg/dL (0.7-1.3); GFR 99.3; POTASSIUM 3.5 mmol/L (3.5-5.1); TOTAL BILIRUBIN 1.1 mg/dL (0.2-1.0)
[2021-05-15 07:00] VITALS: BP 138/112
--- NOTE | 2021-05-15 07:47 | EKG ---
[facility] [address] [place] [address] Test Date: 2021-05-14 Test Time: 09:19:27 Pat Name: PASQUALE ORELLANA Department: Room: 510 Gender: M Distribution Lead: : 1965 Requested By: AVERY COLIN Order Number: [id number] Reading MD: Owen Negron MD Measurements Intervals Vandiver Rate: 109 P: 4 SD: 154 QRS: -38 QRSD: 94 T: 8 QT: 336 QTc: 454 Interpretive Statements SINUS TACHYCARDIA Left axis deviation Nonspecific ST-T wave changes Electronically Signed On 05-16-2021 17:53:40 CDT by Owen Negron MD
[2021-05-15] MEDS: GABAPENTIN 300 MG CAPSULE. PO SCH ×3 (07:50→20:44)
[2021-05-15] MEDS: FOLIC ACID 1 MG TABLET. PO SCH (07:50)
[2021-05-15] MEDS: MAGNESIUM OXIDE 400 MG TABLET PO SCH (07:50)
[2021-05-15] MEDS: MULTIVITAMIN with MINERAL TABLET. PO SCH (07:50)
[2021-05-15] MEDS: THIAMINE 100 MG TABLET. PO SCH (07:50)
[2021-05-15] MEDS: cloNIDine HCL 0.1 MG TABLET PO PRN ×2 (08:27→12:36)
--- NOTE | 2021-05-15 08:32 | NUR ---
Call placed to Dr. Seaman to notify him of patient's heart rate in the 140's...this nurse gave PRN clonidine and ativan, patient adamant about being discharged today.
--- NOTE | 2021-05-15 10:23 | NUR ---
JOSES[facility]O following. Discussed with RN, pt from home with , room air, regular diet, rapid COVID-19 negative. MCKENZIE consulted for ETOH treatment placement. [facility] will continue to follow. Addendum: 05/15/21 at 1246 by SAIRA BELLAMY Gee ZIMMERMAN) met with pt, pt provided with all resources and can be discharged when medically stable. Pt will follow up with facilities for treatment. Pt not medically cleared at this time.
[2021-05-15 11:00] VITALS: BP 136/88
[2021-05-15] MEDS ORDERED: cloNIDine HCL 0.1 MG TABLET PO PRN (11:45)
--- NOTE | 2021-05-15 11:56 | PDOC ---
[employer] PROGRESS NOTE Date of Service DOS: DATE: 05/15/21 TIME: 11:55 Chief Complaint Chief Complaint Assessment/Plan Acute alcohol withdrawal with some delerium - still with some ETOH in system, CIWA protocol Alcohol use disorder - counseled. Currently not clear if he wants help, but notes his wants him to have help and he will do as she requests of him. Hypertension - prn clonidine Depression - cont home meds Delirium tremens - CIWA H/o Dilated cardiomyopathy - alcohol related Metabolic encephalopathy, acute - due to alcohol withdrawal despite intoxication Lactic acidosis - due to seizure Transaminitis - likely alcohol related, monitor Thrombocytopenia - likely ETOH related, monitor Recent urine culture positive for staph epi -likely this was a skin contaminant given squamous cells urine sample. Will monitor urine output. FEN - regular diet PPX - ambulatory FULL CODE Dispo - observation, previously has had withdrawal seizures, may need inpatient if his withdrawal symptoms worsen. History of Present Illness History of Present Illness 56-year-old male past medical history of alcohol abuse, who presented to the ER accompanied by his c/o tremors and is nauseated, he and his think he is withdrawing from ETOH. He drinks 1 Liter of Vodka every 2 days, states he drank a beer this morning around 0400. Last vodka drink was 05/13/2021 overnight around 2000. Previously treated for seizures related to ETOH withdrawal. His is requesting inpatient treatment for alcohol use disorder, he says, "Ok". He is somewhat confused during examination, falling asleep frequently. Did receive ativan. No seizure activity noted in ED. Apparently he was seen 3 days prior in the ED for some dysuria he had staff epidermidis grow on culture. He and his currently did not complain of any dysuria or urinary retention. WBC 5.4, Hb 14.9, platelets 132, NA 141, K3.8, BUN 9, CR 0.8, glucose 114, calcium 8.7, mag 1.8, bilirubin 0.6, AST 197, ALT 100, alkaline phosphatase 98, albumin 3.6, high-sensitivity troponin is 9, ethanol level at 0950 is 145 mg/Evelyn, rapid influenza and rapid COVID-19 negative Chest radiograph no acute abnormality. 05/15/2021 No acute events overnight. Patient seen examined bedside. Afebrile and tachycardic to 160s. CIWA score at least an 10 on my encounter. Patient is unsafe for discharge at this time. Clear signs of withdrawal. Agitation and shakiness. Agreed to be evaluated by PAT and eventual self admission to [place]. Patient's chart, labs, images were reviewed and discussed with RN Vitals/I&O Vitals/I&O: Vital Signs Date Time Temp Pulse Resp B/P (MAP) Pulse Ox O2 Delivery O2 Flow Rate FiO2 05/15/21 08:27 114 138/112 05/15/21 08:00 Room Air 05/15/21 07:00 98.2 18 91 98.2 I & O 05/14/21 05/14/21 05/15/21 15:00 23:00 07:00 Intake Total 1000 ml 120 ml 320 ml Output Total 200 ml 650 ml Balance 1000 ml -80 ml -330 ml Physical Exam General: Alert, Cooperative, mild distress Lungs: Clear Abdomen: Normal bowel sounds, Soft, No tenderness, No hepatosplenomegaly, No masses Extremities: No clubbing, No cyanosis, No edema, Normal pulses, No tenderness/ swelling Skin: No rashes, No breakdown, No significant lesion Labs Labs: Laboratory Tests Test 05/15/21 02:45 White Blood Count 5.5 x10^3/uL (4.0-11.0) Red Blood Count 4.73 x10^6/uL (4.30-5.70) Hemoglobin 14.0 g/dL (13.0-17.5) Hematocrit 43.1 % (39.0-53.0) Mean Corpuscular Volume 91 fL (79-100) Mean Corpuscular Hemoglobin 30 pg (25-35) Mean Corpuscular Hemoglobin Concent 32 g/dL (31-37) Red Cell Distribution Width 22.1 % (11.5-14.5) Platelet Count 97 x10^3/uL (140-400) Sodium Level 137 mmol/L (136-145) Potassium Level 3.5 mmol/L (3.5-5.1) Chloride Level 101 mmol/L (98-107) Carbon Dioxide Level 27 mmol/L (21-32) Anion Gap 9 (6-14) Blood Urea Nitrogen 5 mg/dL (8-26) Creatinine 0.8 mg/dL (0.7-1.3) Estimated GFR (Cockcroft-Gault) 99.3 BUN/Creatinine Ratio 6 (6-20) Glucose Level 122 mg/dL (70-99) Calcium Level 8.3 mg/dL (8.5-10.1) Total Bilirubin 1.1 mg/dL (0.2-1.0) Aspartate Amino Transf (AST/SGOT) 162 U/L (15-37) Alanine Aminotransferase (ALT/SGPT) 90 U/L (16-63) Alkaline Phosphatase 95 U/L (46-116) Total Protein 7.0 g/dL (6.4-8.2) Albumin 3.3 g/dL (3.4-5.0) Albumin/Globulin Ratio 0.9 (1.0-1.7) Comment Review of Relevant I have reviewed the following items lana (where applicable) has been applied. Medications: Current Medications Medications (Trade) Dose Ordered Sig/Jacqueline Route PRN Reason Start Time Stop Time Status Last Admin Dose Admin Ondansetron HCl (Zofran) 4 mg 1X ONCE IVP 05/14/21 13:30 05/14/21 13:31 DC 05/14/21 13:31 Lorazepam (Ativan Inj) 2 mg 1X ONCE IVP 05/14/21 14:30 05/14/21 14:31 DC 05/14/21 15:03 Sodium Chloride 1,000 ml @ 1,000 mls/hr 1X ONCE IV 05/14/21 14:30 05/14/21 15:29 DC 05/14/21 15:02 Multivitamins (Thera M Plus) 1 tab DAILY PO 05/15/21 09:00 05/15/21 07:50 Folic Acid (Folic Acid) 1 mg DAILY PO 05/15/21 09:00 05/15/21 07:50 Thiamine Mononitrate (Vitamin B-1) 100 mg DAILY PO 05/15/21 09:00 05/15/21 07:50 Lorazepam (Ativan Inj) 1 mg PRN Q1HR PRN IV For CIWA 8-14 05/14/21 17:15 05/15/21 08:26 Clonidine HCl (Catapres) 0.1 mg PRN Q1HR PRN PO SBP > 180 or DBP > 100, MRX3 05/14/21 17:15 05/15/21 08:27 Gabapentin (Neurontin) 300 mg TID PO 05/14/21 21:00 05/15/21 07:50 Trazodone HCl (Desyrel) 100 mg QHS PO 05/14/21 21:00 05/14/21 20:47 Magnesium Oxide (Magnesium Oxide) 400 mg DAILY PO 05/14/21 19:30 05/15/21 07:50 Justifications for Admission Other Justification Alcohol withdrawal, seizure TUNDE PEREZ MD May 15, 2021 11:56
[2021-05-15 15:00] VITALS: BP 133/89
[2021-05-15 19:00] VITALS: BP 119/88
[2021-05-15] MEDS: traZODone 100 MG TABLET. PO SCH (20:44)
[2021-05-15 23:00] VITALS: BP 137/100
[2021-05-16 03:00] VITALS: BP 144/100
[2021-05-16 07:00] VITALS: BP 123/97
[2021-05-16] MEDS: FOLIC ACID 1 MG TABLET. PO SCH (07:50)
[2021-05-16] MEDS: GABAPENTIN 300 MG CAPSULE. PO SCH ×2 (07:50→13:19)
[2021-05-16] MEDS: THIAMINE 100 MG TABLET. PO SCH (07:50)
[2021-05-16] MEDS: MAGNESIUM OXIDE 400 MG TABLET PO SCH (07:50)
[2021-05-16] MEDS: MULTIVITAMIN with MINERAL TABLET. PO SCH (07:50)
[2021-05-16] MEDS ORDERED: IV NORMAL SALINE 1000ML BAG 1,000 ML IV ONE (08:15)
[2021-05-16] MEDS ORDERED: THIA100T22 PO (10:00)
[2021-05-16] MEDS ORDERED: MULT1TAB92 PO (10:00)
[2021-05-16] MEDS ORDERED: GABA300C18 PO (10:00)
--- NOTE | 2021-05-16 10:01 | DISCH ---
DISCHARGE INSTRUCTIONS Condition on Discharge Condition on Discharge: Stable Activity After Discharge Activity Instructions for Disc: No restrictions, Resume previous activity, Activity as tolerated Lifting Instructions after Dis: No heavy lifting Exercise Instruction after Dis: Progress as tolerated Driving Instructions after Dis: Do not drive today Weight Bearing Status after Di: No restrictions, Full weight bearing Diet after Discharge Diet after Discharge: Cardiac, Regular Diet Texture: Regular Liquid Texture: Thin Liquid Swallowing Supervision: None needed Wound Incision Care Wound/Incision Care: No wound care needed Checks after Discharge Checks after discharge: Check blood press - daily, Check your Temp as needed [facility] Follow Up With: PCP within 2 weeks of discharge Treatment/Equipment after DC Adaptive Equipment Issued: None TUNDE PEREZ MD May 16, 2021 10:01
--- NOTE | 2021-05-16 10:28 | NUR ---
SW following. Discussed with RN, discharge order for home with self care. RN getting pt a cab home to get his belongings to then follow up at [facility]. Pt is a high risk readmission.
[2021-05-16 11:00] VITALS: BP 179/80
--- NOTE | 2021-05-16 15:21 | NUR ---
spoke with Dr. Nolasco about heart rate 130-140. He ordered a 1X bag of N/S @ 125/hr and repeat EKG if BP is still over 120. Monitored and patients HR ranged from 103 @0948, 98 @1014, 95 @1050.
--- NOTE | 2021-05-16 15:26 | NUR ---
1324 patient discharged to home. He received a cab pass and walked out with aid when they arrived.
== END 2021-05-16 13:24 | disposition home or self-care (01) ==
LOC: ER 08:56 → 5 NORTH 15:30
PROVIDERS: ADMIT Internal Medicine; ATTEND Internal Medicine
DX: F10.231 Alcohol dependence with withdrawal delirium (principal); Z20.822 Contact with and (suspected) exposure to COVID-19; I10 Essential (primary) hypertension; F32.9 Major depressive disorder, single episode, unspecified; G93.41 Metabolic encephalopathy; R74.01 Elevation of levels of liver transaminase levels; D69.6 Thrombocytopenia, unspecified; I25.10 Atherosclerotic heart disease of native coronary artery without angina pectoris; E11.9 Type 2 diabetes mellitus without complications; K57.90 Diverticulosis of intestine, part unspecified, without perforation or abscess without bleeding; I42.0 Dilated cardiomyopathy; F32.A Depression, unspecified; R56.9 Unspecified convulsions; D50.9 Iron deficiency anemia, unspecified; M19.90 Unspecified osteoarthritis, unspecified site; Z79.899 Other long term (current) drug therapy; Z98.890 Other specified postprocedural states
CPT/HCPCS: 36415; 71045; 80053; 83690; 83735; 84484; 85025; 85027; 87428; 93005; 96361; 96365; 96366; 96375; 96376; 99285; G0378; G0480; J2060; J2405; J3411; J3490; J7030; G0379

== ENCOUNTER 2021-06-27 02:21 | Emergency (ER) | payer BC ==
[~2021-06-27] VITALS: Ht 175.3 cm; Wt 86.4 kg
[~2021-06-27 02:21] MED LIST changes: +LISI10TA16 PO; +MULT1TAB92 PO
[2021-06-27] MEDS ORDERED: IV NORMAL SALINE 1000ML BAG 1,000 ML IV ONE ×2 (03:00→06:00)
[2021-06-27 03:12] LABS: BASO # 0.1 x10^3/uL (0.0-0.2); BASO % 1 % (0-3); EOS % 1 % (0-3); HEMATOCRIT 47.4 % (39.0-53.0); HEMOGLOBIN 15.3 g/dL (13.0-17.5); LYMPH % 43 % (24-48); MEAN CORPUSCULAR HEMOGLOBIN 31 pg (25-35); MEAN CORPUSCULAR HGB CONC 32 g/dL (31-37); MEAN CORPUSCULAR VOLUME 94 fL (79-100); MONO # 0.5 x10^3/uL (0.0-1.1); MONO % 10 % (0-9); NEUT # 2.2 x10^3/uL (1.8-7.7); NEUT % 45 % (31-73); PLATELET COUNT 145 x10^3/uL (140-400); RED BLOOD COUNT 5.02 x10^6/uL (4.30-5.70); RED CELL DISTRIBUTION WIDTH 19.1 % (11.5-14.5); WHITE BLOOD COUNT 4.8 x10^3/uL (4.0-11.0)
[2021-06-27 03:21] LABS: CALCIUM 8.1 mg/dL (8.5-10.1); CREATININE 0.9 mg/dL (0.7-1.3); GFR 86.7; POTASSIUM 3.7 mmol/L (3.5-5.1)
[2021-06-27 03:26] LABS: ALBUMIN 3.2 g/dL (3.4-5.0); ALBUMIN/GLOBULIN RATIO 0.8 (1.0-1.7); MAGNESIUM 1.7 mg/dL (1.8-2.4); TOTAL BILIRUBIN 0.5 mg/dL (0.2-1.0); TOTAL PROTEIN 7.1 g/dL (6.4-8.2)
--- NOTE | 2021-06-27 03:31 | PHYS DOC ---
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 Patient has been evaluated here multiple times in the past due to alcohol abuse, alcohol withdrawal symptoms. Patient drinks a liter of vodka every night. Patient said he drank a liter of vodka tonight, his was tired of living with him being drunk most of the time, called EMS to take him to hospital. Patient denies suicidal ideation, denies homicidal ideation. Patient denies any chest pain. Patient is complaining of epigastric abdominal pain, burning sensation. Review of Systems: Review of Systems: Constitutional: Denies fever or chills. [] Eyes: Denies change in visual acuity. [] HENT: Denies nasal congestion or sore throat. [] Respiratory: Denies cough or shortness of breath. [] Cardiovascular: Denies chest pain or edema. [] GI: Positive for mild abdominal pain, no nausea, vomiting, bloody stools or diarrhea. [] : Denies dysuria. [] Musculoskeletal: Denies back pain or joint pain. [] Integument: Denies rash. [] Neurologic: Denies headache, focal weakness or sensory changes. [] Endocrine: Denies polyuria or polydipsia. [] Lymphatic: Denies swollen glands. [] Psychiatric: Denies depression or anxiety. [] Heart Score: C/O Chest Pain: N/A Risk Factors: Risk Factors: DM, Current or recent (<one month) smoker, HTN, HLP, family history of CAD, obesity. Risk Scores: Score 0 - 3: 2.5% MACE over next 6 weeks - Discharge Home Score 4 - 6: 20.3% MACE over next 6 weeks - Admit for Clinical Observation Score 7 - 10: 72.7% MACE over next 6 weeks - Early Invasive Strategies Current Medications: Current Medications Medications (Trade) Dose Ordered Sig/Jacqueline Start Time Stop Time Status Last Admin Dose Admin Sodium Chloride 1,000 ml @ 1,000 mls/hr 1X ONCE 06/27/21 03:00 06/27/21 03:59 06/27/21 02:55 1,000 MLS/HR Allergies: Allergies: Allergies Coded Allergies Type Severity Reaction Last Updated Verified No Known Drug Allergies 05/14/21 No Physical Exam: PE: Constitutional: Well developed, well nourished, no acute distress, non-toxic appearance. [] HENT: Normocephalic, atraumatic, bilateral external ears normal, oropharynx moist, no oral exudates, nose normal. [] Eyes: PERRLA, EOMI, conjunctiva normal, no discharge. [] Neck: Normal range of motion, no tenderness, supple, no stridor. [] Cardiovascular:Heart rate regular rhythm, no murmur [] Lungs & Thorax: Bilateral breath sounds clear to auscultation [] Abdomen: Bowel sounds normal, soft, no tenderness, no masses, no pulsatile masses. [] Skin: Warm, dry, no erythema, no rash. [] Back: No tenderness, no CVA tenderness. [] Extremities: No tenderness, no cyanosis, no clubbing, ROM intact, no edema. [] Neurologic: Alert and oriented X 3, normal motor function, normal sensory function, no focal deficits noted. [] Psychologic: Affect normal, judgement normal, mood normal. [] Current Patient Data: Labs: Laboratory Tests Test 06/27/21 02:55 White Blood Count 4.8 x10^3/uL (4.0-11.0) Red Blood Count 5.02 x10^6/uL (4.30-5.70) Hemoglobin 15.3 g/dL (13.0-17.5) Hematocrit 47.4 % (39.0-53.0) Mean Corpuscular Volume 94 fL (79-100) Mean Corpuscular Hemoglobin 31 pg (25-35) Mean Corpuscular Hemoglobin Concent 32 g/dL (31-37) Red Cell Distribution Width 19.1 % (11.5-14.5) H Platelet Count 145 x10^3/uL (140-400) Neutrophils (%) (Auto) 45 % (31-73) Lymphocytes (%) (Auto) 43 % (24-48) Monocytes (%) (Auto) 10 % (0-9) H Eosinophils (%) (Auto) 1 % (0-3) Basophils (%) (Auto) 1 % (0-3) Neutrophils # (Auto) 2.2 x10^3/uL (1.8-7.7) Lymphocytes # (Auto) 2.0 x10^3/uL (1.0-4.8) Monocytes # (Auto) 0.5 x10^3/uL (0.0-1.1) Eosinophils # (Auto) 0.0 x10^3/uL (0.0-0.7) Basophils # (Auto) 0.1 x10^3/uL (0.0-0.2) Sodium Level 145 mmol/L (136-145) Potassium Level 3.7 mmol/L (3.5-5.1) Chloride Level 106 mmol/L (98-107) Carbon Dioxide Level 22 mmol/L (21-32) Anion Gap 17 (6-14) H Blood Urea Nitrogen 8 mg/dL (8-26) Creatinine 0.9 mg/dL (0.7-1.3) Estimated GFR (Cockcroft-Gault) 86.7 BUN/Creatinine Ratio 9 (6-20) Glucose Level 92 mg/dL (70-99) Calcium Level 8.1 mg/dL (8.5-10.1) L Magnesium Level 1.7 mg/dL (1.8-2.4) L Total Bilirubin 0.5 mg/dL (0.2-1.0) Aspartate Amino Transferase (AST) 138 U/L (15-37) H Alanine Aminotransferase (ALT) 69 U/L (16-63) H Alkaline Phosphatase 70 U/L (46-116) Total Protein 7.1 g/dL (6.4-8.2) Albumin 3.2 g/dL (3.4-5.0) L Albumin/Globulin Ratio 0.8 (1.0-1.7) L Lipase 223 U/L (73-393) Laboratory Tests 06/27/21 02:55 Laboratory Tests 06/27/21 02:55 Vital Signs: Vital Signs Date Time Temp Pulse Resp B/P (MAP) Pulse Ox O2 Delivery O2 Flow Rate FiO2 06/27/21 02:26 97.7 59 15 137/81 (99) Room Air 97.0 97.7 EKG: EKG: [] Radiology/Procedures: Radiology/Procedures: [] Course & Med Decision Making: Course & Med Decision Making Pertinent Labs and Imaging studies reviewed. (See chart for details) Patient is intoxicated, chronic alcoholic, ALCOHOL LEVEL: 445. Patient was given IV fluid, will recheck alcohol level now. Awaiting to sober up, then discharge home. Patient care was endorsed to the incoming physician at shift change, 6 am, Dr. MONTY MULLEN. Bryaan Disclaimer: Brayan Disclaimer: This electronic medical record was generated, in whole or in part, using a voice recognition dictation system. Departure Departure Impression: Primary Impression: Alcohol intoxication Additional Impressions: Alcohol abuse Hypomagnesemia Condition: STABLE Referrals: JARED MONTEMAYOR MD (PCP) BIJAN SMALL DO June 27, 2021 03:31
[2021-06-27] MEDS ORDERED: MAGNESIUM SULFATE 1GM 100 ML IV ONE (04:00)
[2021-06-27 11:13] VITALS: BP 141/77
== END 2021-06-27 12:01 | disposition home or self-care (01) ==
LOC: ER 02:21
DX: F10.229 Alcohol dependence with intoxication, unspecified (principal); Y90.8 Blood alcohol level of 240 mg/100 ml or more; I10 Essential (primary) hypertension
CPT/HCPCS: 36415; 80053; 83690; 83735; 85025; 96361; 96365; 96366; 99285; G0480; J3475; J7030

== ENCOUNTER 2021-07-01 18:16 | Inpatient (IN) | payer BC ==
[~2021-07-01] VITALS: Ht 177.8 cm; Wt 87.7 kg
[2021-07-01 18:28] LABS: BASO % 1 % (0-3); EOS % 0 % (0-3); HEMATOCRIT 46.1 % (39.0-53.0); HEMOGLOBIN 15.2 g/dL (13.0-17.5); LYMPH # 0.4 x10^3/uL (1.0-4.8); LYMPH % 5 % (24-48); MEAN CORPUSCULAR HEMOGLOBIN 31 pg (25-35); MEAN CORPUSCULAR HGB CONC 33 g/dL (31-37); MEAN CORPUSCULAR VOLUME 95 fL (79-100); MONO # 0.9 x10^3/uL (0.0-1.1); MONO % 11 % (0-9); NEUT # 6.7 x10^3/uL (1.8-7.7); NEUT % 83 % (31-73); PLATELET COUNT 159 x10^3/uL (140-400); RED BLOOD COUNT 4.86 x10^6/uL (4.30-5.70); RED CELL DISTRIBUTION WIDTH 18.4 % (11.5-14.5)
[2021-07-01 18:46] LABS: CALCIUM 9.6 mg/dL (8.5-10.1); CREATININE 1.5 mg/dL (0.7-1.3); GFR 48.1; POTASSIUM 3.7 mmol/L (3.5-5.1)
[2021-07-01 18:52] LABS: ALBUMIN 3.6 g/dL (3.4-5.0); ALBUMIN/GLOBULIN RATIO 0.8 (1.0-1.7); TOTAL BILIRUBIN 1.5 mg/dL (0.2-1.0); TOTAL PROTEIN 8.2 g/dL (6.4-8.2)
[2021-07-01] MEDS: MULTIVIT INFUSN,ADULT 4,VIT K 10 ML, THIAMINE INJ 100 MG, FOLIC ACID INJ 1 MG in IV NOR... IV SCH (19:07)
--- NOTE | 2021-07-01 19:38 | RAD ---
EXAM: CT Head without IV contrast CLINICAL HISTORY: Reason: AMS, seizure, EtoH use / Spl. Instructions: / History: COMPARISON: None. TECHNIQUE: Routine CT of the head without contrast. PQRS compliance statement - One or more of the following individualized dose reduction techniques wer e utilized for this study: 1. Automated exposure control 2. Adjustment of the mA and/or kV according to patient size 3. Use of iterative reconstruction technique FINDINGS: There is no evidence of hemorrhage, mass or extra-axial fluid collection. Marte-white differentiation is maintained with no evidence of edema. Subcortical, periventricular as w ell as deep white matter and pontine foci of hypoattenuation likely changes of chronic small vessel d isease. There is no mass effect or shift of the intracranial structures. The ventricles and cerebral sulci are prominent for the patients stated age consistent with generaliz ed cerebral volume loss. The cerebellum and brainstem are unremarkable. The calvarium demonstrates no evidence of fracture or focal lesion. There is normal aeration of the visualized paranasal sinuses and mastoid air cells. The visualized portions of the orbits are normal. IMPRESSION: 1. No evidence for acute intracranial process. 2. White matter changes likely chronic small vessel disease. 3. The ventricles and cerebral sulci are prominent for the patients stated age consistent with gener alized cerebral volume loss. Electronically signed by: Jesse Calabrees MD (07/01/2021 7:36 PM) RICHARD
[2021-07-01] MEDS ORDERED: IV NORMAL SALINE 1000ML BAG 1,000 ML IV ONE ×4 (20:15→23:00)
--- NOTE | 2021-07-01 20:57 | RAD ---
EXAMINATION: XR CHEST 1V CLINICAL HISTORY: Altered mental status. EXAM DATE/TIME: 07/01/2021 8:17 PM COMPARISON: 05/14/2021 FINDINGS: Lines, Tubes, and Devices: None. Cardiomediastinal Silhouette: Stable. Lungs and Pleura: Pulmonary hypoexpansion without evidence of focal airspace consolidation, pleural e ffusion, or pneumothorax. Bones and Soft Tissues: Degenerative changes in the thoracic spine. IMPRESSION: No evidence of acute cardiopulmonary abnormality or significant interval change. Electronically signed by: Bradley Gross DO (07/01/2021 8:54 PM) CLARISSE
[2021-07-01] MEDS ORDERED: LACTULOSE 20 GM/30 ML SOLUTION. PO PRN (21:00)
[2021-07-01] MEDS ORDERED: THIAMINE INJ 100 MG in IV DEXTROSE 5% 50 ML IV ONE (21:00)
--- NOTE | 2021-07-01 21:05 | PHYS DOC ---
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 It was noted by his ex- who report ed to EMS. Apparently he is a chronic alcoholic and last night he had a huge amount of binge drinking. Patient himself states that he only drank last night. He is acting very much confused and will not provide any further history at this time. All my history was obtained through hearsay from the nursing staff. Review of Systems: Review of Systems: Cannot perform due to acuity of condition Heart Score: C/O Chest Pain: No Risk Factors: Risk Factors: DM, Current or recent (<one month) smoker, HTN, HLP, family history of CAD, obesity. Risk Scores: Score 0 - 3: 2.5% MACE over next 6 weeks - Discharge Home Score 4 - 6: 20.3% MACE over next 6 weeks - Admit for Clinical Observation Score 7 - 10: 72.7% MACE over next 6 weeks - Early Invasive Strategies Current Medications: Current Medications Medications (Trade) Dose Ordered Sig/Jacqueline Start Time Stop Time Status Last Admin Dose Admin Lactulose (Lactulose) 20 gm PRN DAILY PRN 07/01/21 21:00 Lorazepam (Ativan Inj) 2 mg PRN Q15MIN PRN 07/01/21 18:30 07/01/21 20:39 2 MG Multivitamins 10 ml/Thiamine HCl 100 mg/Folic Acid 1 mg/Sodium Chloride 1,011.2 ml @ 100 mls/ hr DAILY 07/01/21 19:00 07/05/21 19:07 07/01/21 19:07 100 MLS/HR Sodium Chloride 1,000 ml @ 1,000 mls/hr 1X ONCE 07/01/21 20:15 07/01/21 21:14 Thiamine HCl 100 mg/Dextrose 51 ml @ 102 mls/hr 1X ONCE 07/01/21 21:00 07/01/21 21:29 Allergies: Allergies: Allergies Coded Allergies Type Severity Reaction Last Updated Verified No Known Drug Allergies 05/14/21 No Physical Exam: PE: Constitutional: Well developed, well nourished, no acute distress, appears some confused HENT: Normocephalic, atraumatic, bilateral external ears normal, oropharynx moist, no oral exudates, nose normal. [] Eyes: PERRLA, EOMI, conjunctiva normal, no discharge. [] Neck: Normal range of motion, no tenderness, supple, no stridor. [] Cardiovascular:Heart rate regular rhythm, no murmur [] Lungs & Thorax: Bilateral breath sounds clear to auscultation [] Abdomen: Bowel sounds normal, soft, no tenderness, no masses, no pulsatile masses. [] Skin: Warm, dry, no erythema, no rash. [] Back: No tenderness, no CVA tenderness. [] Extremities: No tenderness, no cyanosis, no clubbing, ROM intact, no edema. [] Neurologic: Moving all 4 extremities and opening eyes spontaneously and saying things that are nonsensical. He will not follow directions and repeatedly is getting out of bed Current Patient Data: Labs: Laboratory Tests Test 07/01/21 18:10 White Blood Count 8.0 x10^3/uL (4.0-11.0) Red Blood Count 4.86 x10^6/uL (4.30-5.70) Hemoglobin 15.2 g/dL (13.0-17.5) Hematocrit 46.1 % (39.0-53.0) Mean Corpuscular Volume 95 fL (79-100) Mean Corpuscular Hemoglobin 31 pg (25-35) Mean Corpuscular Hemoglobin Concent 33 g/dL (31-37) Red Cell Distribution Width 18.4 % (11.5-14.5) H Platelet Count 159 x10^3/uL (140-400) Neutrophils (%) (Auto) 83 % (31-73) H Lymphocytes (%) (Auto) 5 % (24-48) L Monocytes (%) (Auto) 11 % (0-9) H Eosinophils (%) (Auto) 0 % (0-3) Basophils (%) (Auto) 1 % (0-3) Neutrophils # (Auto) 6.7 x10^3/uL (1.8-7.7) Lymphocytes # (Auto) 0.4 x10^3/uL (1.0-4.8) L Monocytes # (Auto) 0.9 x10^3/uL (0.0-1.1) Eosinophils # (Auto) 0.0 x10^3/uL (0.0-0.7) Basophils # (Auto) 0.0 x10^3/uL (0.0-0.2) Sodium Level 138 mmol/L (136-145) Potassium Level 3.7 mmol/L (3.5-5.1) Chloride Level 101 mmol/L (98-107) Carbon Dioxide Level 16 mmol/L (21-32) L Anion Gap 21 (6-14) H Blood Urea Nitrogen 9 mg/dL (8-26) Creatinine 1.5 mg/dL (0.7-1.3) H Estimated GFR (Cockcroft-Gault) 48.1 BUN/Creatinine Ratio 6 (6-20) Glucose Level 190 mg/dL (70-99) H Calcium Level 9.6 mg/dL (8.5-10.1) Total Bilirubin 1.5 mg/dL (0.2-1.0) H Aspartate Amino Transferase (AST) 115 U/L (15-37) H Alanine Aminotransferase (ALT) 74 U/L (16-63) H Alkaline Phosphatase 98 U/L (46-116) Ammonia 68 mcmol/L (11-34) H Total Protein 8.2 g/dL (6.4-8.2) Albumin 3.6 g/dL (3.4-5.0) Albumin/Globulin Ratio 0.8 (1.0-1.7) L Lipase 111 U/L (73-393) Laboratory Tests 07/01/21 18:10 Laboratory Tests 07/01/21 18:10 Vital Signs: Vital Signs Date Time Temp Pulse Resp B/P (MAP) Pulse Ox O2 Delivery O2 Flow Rate FiO2 07/01/21 18:35 116 22 168/112 (130) 96 Room Air 07/01/21 18:16 98.6 98.6 EKG: EKG: [] Radiology/Procedures: Radiology/Procedures: [] Course & Med Decision Making: Course & Med Decision Making Pertinent Labs and Imaging studies reviewed. (See chart for details) I was concern for the patient given his presentation and his elevated lactic acid and low CO2. This could be from recent seizure. He has not febrile currently. I highly doubt that he has sepsis or any obvious infection at this time. We will engage in fluid resuscitation and thiamine supplementation at this time. Will admit for further work-up. Has had a recent admission for the same issue in the past. Brayan Disclaimer: Brayan Disclaimer: This electronic medical record was generated, in whole or in part, using a voice recognition dictation system. Departure Departure Impression: Primary Impression: Alcohol related seizure Additional Impressions: Alcohol withdrawal Elevated lactic acid level Seizure Disposition: ADMITTED INPATIENT Condition: STABLE Referrals: JARED MONTEMAYOR MD (PCP) MONTY MULLEN MD July 01, 2021 21:05
[2021-07-01 21:24] LABS: PROTHROMBIN TIME PATIENT 13.5 SEC (11.7-14.0)
[2021-07-01 21:26] LABS: MAGNESIUM 1.8 mg/dL (1.8-2.4); PHOSPHORUS 1.6 mg/dL (2.6-4.7)
[2021-07-01 21:27] LABS: ACETAMIN < 2 mcg/ml (10-30)
[2021-07-01 21:28] LABS: SALIC < 0.2 mg/dL (2.8-20.0)
--- NOTE | 2021-07-01 23:00 | RAD ---
Ultrasound of the right upper quadrant abdomen 07/01/2021 CLINICAL HISTORY: Elevated liver function tests. TECHNIQUE: A real-time ultrasound examination of the right upper quadrant of the abdomen was kiana d. Multiple images were obtained. FINDINGS: Comparison study is dated 07/09/2016. The gallbladder is well-distended. No gallstones are visualized. The gallbladder wall thickness is wi thin normal limits. No pericholecystic fluid is seen. The common bile duct measures 5 mm in diameter which is within normal limits. The liver is enlarged measuring 19.6 cm in length. Increased echogenicity of the liver parenchyma is seen consistent with fatty infiltration. No focal abnormality of liver is noted. The visualized pancr eas is within normal limits. The right kidney is within normal limits. No free fluid is seen. IMPRESSION: Mild hepatomegaly with fatty infiltration of the liver. Otherwise negative study. Electronically signed by: Felix Campbell MD (07/01/2021 10:58 PM) [id number]
[2021-07-02] VITALS (10 sets, daily range): BP systolic 125–175; BP diastolic 83–98
[2021-07-02] MEDS ORDERED: HALOPERIDOL LACTATE 5 MG/ML VIAL. IVP PRN (04:00)
[2021-07-02 06:43] LABS: ALBUMIN 2.8 g/dL (3.4-5.0); DIRECT BILIRUBIN 0.6 mg/dL (0.0-0.2); TOTAL BILIRUBIN 1.7 mg/dL (0.2-1.0); TOTAL PROTEIN 6.4 g/dL (6.4-8.2)
[2021-07-02] MEDS ORDERED: THIAMINE INJ 100 MG in IV DEXTROSE 5% 50 ML IV SCH (09:00)
[2021-07-02] MEDS: MULTIVIT INFUSN,ADULT 4,VIT K 10 ML, THIAMINE INJ 100 MG, FOLIC ACID INJ 1 MG in IV NOR... IV SCH (09:11)
[2021-07-02] MEDS: ENOXAPARIN 40 MG/0.4 ML SYRINGE. SQ SCH (11:00)
--- NOTE | 2021-07-02 13:42 | HP ---
DATE OF SERVICE: 07/02/2021 ADMIT DATE: 07/02/2021 CHIEF COMPLAINT: Alcohol intoxication. HISTORY OF PRESENT ILLNESS: The patient is a pleasant 56-year-old male well known to our service. He is admitted periodically with alcohol intoxication and seizures. Once again, he presents intoxicated, he is also having seizures. I discussed the case with ER physician. We are admitting the patient with a [facility] protocol. 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 ALLERGIES: None. FAMILY HISTORY: Alcoholism. SOCIAL HISTORY: He drinks. He does not smoke or take drugs. MEDICATIONS: Reviewed, please refer to the MRAD. REVIEW OF SYSTEMS: Unable to obtain. He is currently sedated. PHYSICAL EXAMINATION: VITALS: Within normal limits and are stable. GENERAL: Sedated. HEENT: Normal cephalic atraumatic, external auditory canals are patent EYES: Extraocular muscles are intact, pupils are equally round and reactive to light and accommodation MUSCULOSKELETAL: Well developed, well nourished, good range of motion ENDOCRINE: No thyromegaly was palpated LYMPHATICS: No cervical chain or axillary nodes were noted HEMATOPOIETIC: No bruising NECK: Supple, no JVD, no thyromegaly was noted. LUNGS: Clear to auscultation in all lung reno without rhonchi or wheezing. HEART: RRR, S1, S2 present. Peripheral pulses intact, no obvious murmurs were noted. ABDOMEN: Soft, nontender. Positive bowel sounds no organomegaly, normal bowel sounds. EXTREMITIES: Without any cyanosis, clubbing, or edema. Pedal pulses intact, Homans sign is negative. NEUROLOGIC: Sedated. PSYCHIATRIC: Sedated. SKIN: No ulcerations or rashes, good skin turgor, no jaundice. VASCULAR: Good capillary refill, neurovascular bundle appears to be intact. LABORATORY DATA: White count 8. AST and ALT are surprisingly normal. INR is 1.1. Alcohol level less than 10. DIAGNOSTIC DATA: CT of the head is negative. ASSESSMENT AND PLAN: Alcohol withdrawal seizures and alcohol issues. The patient has been admitted. We will start alcohol withdrawal protocol. Cardiac monitoring. Deep venous thrombosis prophylaxis. Full Code. Home meds. Prognosis long-term guarded. [facility] [place] DR: KATE/carmela TID: [id number]
[2021-07-03] VITALS: BP 139/85
[2021-07-03 04:00] VITALS: BP 123/76
[2021-07-03 09:00] VITALS: BP 150/90
[2021-07-03] MEDS: MULTIVIT INFUSN,ADULT 4,VIT K 10 ML, THIAMINE INJ 100 MG, FOLIC ACID INJ 1 MG in IV NOR... IV SCH (09:02)
[2021-07-03] MEDS: ENOXAPARIN 40 MG/0.4 ML SYRINGE. SQ SCH (09:17)
--- NOTE | 2021-07-03 10:31 | PDOC ---
[employer] PROGRESS NOTE Date of Service DOS: DATE: 07/03/21 TIME: 10:30 Chief Complaint Chief Complaint Alcohol withdrawal seizure Alcoholism, alcohol seizures, hypertension, noncompliance, foot surgery, some type of 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 History of Present Illness History of Present Illness 07/03/2021 Patient seen and examined Discussed with RN Chart reviewed He is still on alcohol withdrawal protocol Has a banana bag pain He is sedated Discussed with case management Chart reviewed Vitals/I&O Vitals/I&O: Vital Signs Date Time Temp Pulse Resp B/P (MAP) Pulse Ox O2 Delivery O2 Flow Rate FiO2 07/03/21 04:00 99.3 106 22 123/76 (92) 93 Room Air 99.3 07/02/21 11:00 2.0 I & O 07/02/21 07/02/21 07/03/21 15:00 23:00 07:00 Intake Total 776 ml Output Total 200 ml 875 ml 650 ml Balance -200 ml -99 ml -650 ml Physical Exam General: Other (Sedated) Heart: Regular rate Lungs: Clear Abdomen: Normal bowel sounds Extremities: No clubbing Skin: No rashes Assessment and Plan Assessmemt and Plan Problems Medical Problems: (1) Elevated lactic acid level Status: Acute Alcohol withdrawal seizure Alcoholism, alcohol seizures, hypertension, noncompliance, foot surgery, some type of 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 Plan ICU monitoring Alcohol withdrawal protocol Home meds DVT prophylaxis Full code Vitamins and thiamine IV banana bag As needed benzos Long-term prognosis guarded if he does not quit drinking Comment Review of Relevant I have reviewed the following items lana (where applicable) has been applied. Medications: Current Medications Medications (Trade) Dose Ordered Sig/Jacqueline Route PRN Reason Start Time Stop Time Status Last Admin Dose Admin Enoxaparin Sodium (Lovenox 40mg Syringe) 40 mg Q24H SQ 07/02/21 11:00 07/03/21 09:17 Justifications for Admission Other Justification Alcohol withdrawal, seizure CASTLE,NIAL K III DO July 03, 2021 10:31
[2021-07-03 12:00] VITALS: BP 166/105
[2021-07-03 16:00] VITALS: BP 194/115
[2021-07-03] MEDS: hydrALAZINE 20 MG/ML VIAL. IVP PRN ×2 (16:55→20:35)
[2021-07-03 20:00] VITALS: BP 172/96
[2021-07-04] VITALS: BP 135/82
[2021-07-04 04:00] VITALS: BP 144/91
[2021-07-04 04:39] LABS: CALCIUM 8.4 mg/dL (8.5-10.1); CREATININE 0.9 mg/dL (0.7-1.3); GFR 86.7; MAGNESIUM 1.7 mg/dL (1.8-2.4)
[2021-07-04 04:55] LABS: POTASSIUM 2.7 mmol/L (3.5-5.1)
[2021-07-04] MEDS: POTASSIUM CHLORIDE 20MEQ 100 ML IV SCH ×2 (06:08→07:45)
[2021-07-04] MEDS: POTASSIUM CHLORIDE 20 MEQ TABLET.ER. PO SCH ×2 (07:59→11:31)
[2021-07-04 08:00] VITALS: BP 123/88
[2021-07-04] MEDS: MULTIVIT INFUSN,ADULT 4,VIT K 10 ML, THIAMINE INJ 100 MG, FOLIC ACID INJ 1 MG in IV NOR... IV SCH (09:04)
--- NOTE | 2021-07-04 10:27 | PDOC ---
[employer] PROGRESS NOTE Date of Service DOS: DATE: 07/04/21 TIME: 10:26 Chief Complaint Chief Complaint Alcohol withdrawal seizure Alcoholism, alcohol seizures, hypertension, noncompliance, foot surgery, some type of 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 History of Present Illness History of Present Illness 07/04/2021 Patient seen and examined in the ICU Discussed with RN Chart reviewed Discussed with manager case His potassium is low at 2.7 today 07/03/2021 Patient seen and examined Discussed with RN Chart reviewed He is still on alcohol withdrawal protocol Has a banana bag pain He is sedated Discussed with case management Chart reviewed Vitals/I&O Vitals/I&O: Vital Signs Date Time Temp Pulse Resp B/P (MAP) Pulse Ox O2 Delivery O2 Flow Rate FiO2 07/04/21 04:00 98.7 109 18 144/91 (108) 100 Room Air 98.7 I & O 07/03/21 07/03/21 07/04/21 15:00 23:00 07:00 Intake Total 0 ml Output Total 350 ml 925 ml 275 ml Balance -350 ml -925 ml -275 ml Physical Exam General: Other (Sedated) Heart: Regular rate Lungs: Clear Abdomen: Normal bowel sounds Extremities: No clubbing Skin: No rashes Labs Labs: Laboratory Tests Test 07/04/21 04:00 Sodium Level 141 mmol/L (136-145) Potassium Level 2.7 mmol/L (3.5-5.1) Chloride Level 104 mmol/L (98-107) Carbon Dioxide Level 18 mmol/L (21-32) Anion Gap 19 (6-14) Blood Urea Nitrogen 6 mg/dL (8-26) Creatinine 0.9 mg/dL (0.7-1.3) Estimated GFR (Cockcroft-Gault) 86.7 Glucose Level 93 mg/dL (70-99) Calcium Level 8.4 mg/dL (8.5-10.1) Magnesium Level 1.7 mg/dL (1.8-2.4) Assessment and Plan Assessmemt and Plan Problems Medical Problems: (1) Elevated lactic acid level Status: Acute Alcohol withdrawal seizure Alcoholism, alcohol seizures, hypertension, noncompliance, foot surgery, some type of 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 Plan ICU monitoring Replace potassium Alcohol withdrawal protocol Home meds DVT prophylaxis Full code Vitamins and thiamine IV banana bag As needed benzos Long-term prognosis guarded if he does not quit drinking Comment Review of Relevant I have reviewed the following items lana (where applicable) has been applied. Medications: Current Medications Medications (Trade) Dose Ordered Sig/Jacqueline Route PRN Reason Start Time Stop Time Status Last Admin Dose Admin Hydralazine HCl (Apresoline Inj) 10 mg PRN Q4HRS PRN IVP ELEVATED BP, SEE COMMENTS 07/03/21 16:15 07/03/21 20:35 Potassium Chloride/Water 100 ml @ 50 mls/hr Q2H IV 07/04/21 05:45 07/04/21 09:44 DC 07/04/21 06:08 Lorazepam (Ativan) 4 mg PRN Q1HR PRN PO For CIWA 8-14 07/04/21 07:45 07/04/21 07:59 Potassium Chloride (Klor-Con) 40 meq Q2H PO 07/04/21 08:00 07/04/21 10:01 DC 07/04/21 07:59 Justifications for Admission Other Justification Alcohol withdrawal, seizure CASTLE,NIAL K III DO July 04, 2021 10:27
[2021-07-04] MEDS: ENOXAPARIN 40 MG/0.4 ML SYRINGE. SQ SCH (11:31)
[2021-07-04 12:00] VITALS: BP 137/98
--- NOTE | 2021-07-04 14:54 | NUR ---
Upon start of shift pt was able to tell this RN his name, , that he was in the hospital, that it was 2021 and that he was here for alcohol. He was cooperative. Pt was able to swallow water, pt did not have IV access, he had pulled multiple IVs out overnight and multiple shiftman nurses attempted with no success to get another. Pt was able to take one dose of po ativan and one dose of po potassium chloride. Pt then became more drowsy and was unable to take second dose of po potassium. IV was inserted using ultrasound by ANTHONY Knapp. Pt was then given IV ativan as ordered for CIWA protocol. Pt drowsy this afternoon, call placed to Dr Govea for more potassium replacement/IVF, as pt did not finish second dose of po potassium and pt is not eating or drinking. Pt ex- came in to bring pt clothes and toiletries, she states that pt drinks half a liter of vodka a day.
[2021-07-04 16:00] VITALS: BP 142/99
[2021-07-04] MEDS: POTASSIUM CL 20MEQ D5-0.45NACL 1,000 ML IV SCH (17:19)
--- NOTE | 2021-07-04 18:34 | NUR ---
pt urine output low, discussed with dr kumar, ivf ordered.
[2021-07-04] MEDS: hydrALAZINE 20 MG/ML VIAL. IVP PRN (19:58)
[2021-07-04 20:00] VITALS: BP 163/107
[2021-07-05] VITALS: BP 148/98
[2021-07-05 04:00] VITALS: BP 159/77
[2021-07-05 08:00] VITALS: BP 148/95
[2021-07-05 09:15] LABS: BASO # 0.1 x10^3/uL (0.0-0.2); BASO % 1 % (0-3); EOS # 0.1 x10^3/uL (0.0-0.7); EOS % 1 % (0-3); HEMATOCRIT 50.3 % (39.0-53.0); HEMOGLOBIN 16.6 g/dL (13.0-17.5); LYMPH # 1.4 x10^3/uL (1.0-4.8); LYMPH % 20 % (24-48); MEAN CORPUSCULAR HEMOGLOBIN 32 pg (25-35); MEAN CORPUSCULAR HGB CONC 33 g/dL (31-37); MEAN CORPUSCULAR VOLUME 97 fL (79-100); MONO # 1.2 x10^3/uL (0.0-1.1); MONO % 17 % (0-9); NEUT # 4.5 x10^3/uL (1.8-7.7); NEUT % 62 % (31-73); PLATELET COUNT 166 x10^3/uL (140-400); RED BLOOD COUNT 5.19 x10^6/uL (4.30-5.70); RED CELL DISTRIBUTION WIDTH 19.1 % (11.5-14.5); WHITE BLOOD COUNT 7.3 x10^3/uL (4.0-11.0)
[2021-07-05] MEDS: MULTIVIT INFUSN,ADULT 4,VIT K 10 ML, THIAMINE INJ 100 MG, FOLIC ACID INJ 1 MG in IV NOR... IV SCH (09:59)
[2021-07-05] MEDS: POTASSIUM CL 20MEQ D5-0.45NACL 1,000 ML IV SCH (10:01)
[2021-07-05 10:09] LABS: CREATININE 0.8 mg/dL (0.7-1.3); GFR 99.3; POTASSIUM 3.7 mmol/L (3.5-5.1)
[2021-07-05 11:04] LABS: PLT ESTIMATE ADEQUATE (ADEQUATE)
[2021-07-05 12:00] VITALS: BP 150/89
--- NOTE | 2021-07-05 12:42 | DS ---
DATE OF DISCHARGE: 07/04/2021 ADMITTING DIAGNOSIS: Alcohol withdrawal. 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 HOSPITAL COURSE: The patient is a pleasant middle-aged male, well known to our service. He once again presented with alcohol withdrawal and seizures. We gave him alcohol withdrawal protocol. Today, I saw and examined him. He is doing well and wants to go home. We plan to discharge. DISPOSITION: Home. ACTIVITY: As tolerated. DIET: Low sodium. DISCHARGE MEDICATIONS: Please see the MRAD. Gabapentin 300 t.i.d., lisinopril 10 a day, vitamins. TOTAL TIME: [address]: Blayne TID: [id number]
== END 2021-07-05 12:18 | disposition home or self-care (01) | DRG 101 ==
LOC: ER 18:16 → ED HOLD 07-02 00:09 → 1 WEST ICU 07-02 03:04
PROVIDERS: ADMIT Internal Medicine; ATTEND Internal Medicine
DX: R56.9 Unspecified convulsions (principal); F10.239 Alcohol dependence with withdrawal, unspecified; R07.89 Other chest pain; F10.229 Alcohol dependence with intoxication, unspecified; I10 Essential (primary) hypertension; Z91.19 Patient's noncompliance with other medical treatment and regimen
CPT/HCPCS: 36415; 70450; 71045; 76705; 80048; 80053; 80076; 80329; 82010; 82140; 82550; 82607; 82746; 83605; 83690; 83735; 84100; 84484; 85025; 85610; 85730; 96361; 96365; G0480; J0360; J1650; J2060; J3411; J3480; J3490; J7030; J7060; 99285-25; G0378